=== PATIENT | female | born 1950 | race Caucasian/White ===

== ENCOUNTER → 2017-07-07 | Outpatient (CLI) | payer MEDICARE ==
[~2017-07-07] MED LIST: AZIT250T43 PO; CYCL10TA PO; FORM20NE INH; GUAI600 PO; HYDR-3516 PO; HYDR12.56 PO; LISI-363 PO; LISI-515 PO; LORTA5 PO; METH500T3 PO; MONT10 PO; MONT10TA4 PO; PRED5PAK PO; SPIRCAP INH; Z.0.OXYGENDME NC
[2017-07-07 11:32] LABS: HEMATOCRIT 27.8 % (35.0-46.0); MEAN CORPUSCULAR HEMOGLOBIN 41.7 PG (27.0-34.0); MEAN CORPUSCULAR HGB CONC 33.1 % (32.0-36.0); PLATELET COUNT 78 TH/MM3 (150-450); RED CELL DISTRIBUTION WIDTH 15.1 % (11.6-17.2); WHITE BLOOD COUNT 7.3 TH/MM3 (4.0-11.0)
[2017-07-07 11:36] LABS: REVIEW FLAG FINAL
== END ==
LOC: PHPRE 10:58
PROVIDERS: ATTEND Ophthalmology
DX: Z01.812 Encounter for preprocedural laboratory examination (principal); H26.9 Unspecified cataract; I10 Essential (primary) hypertension
CPT/HCPCS: 36415; 85027

== ENCOUNTER → 2017-07-21 | Day surgery (SDC) | payer MEDICARE ==
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
[~2017-07-21] VITALS: Ht 157.5 cm; Wt 61.5 kg
[~2017-07-21] MED LIST changes: +ACETYLCHOLINE CHL OPHT SOLN 1:100 2 ML VIAL ONE; -AZIT250T43 PO; +BUDE0.25 NEB; +CYCLOPENTOLATE HCL 1% OPHT SOLN 2 ML BTL ONE; +DICLOFENAC SOD 0.1% OPHT SOLN 2.5 ML BTL ONE; +EPINEPHrine HCL PF/SF (1:1000) 1 MG/ML AMP I-OCULAR ONE; +GATIFLOXACIN 0.5% OPHT SOLN 2.5 ML BTL ONE; -GUAI600 PO; +HYALURONIDASE/LIDOCAINE/BUPIVACAINE 5 ML SYR ONE; -LISI-363 PO; -LORTA5 PO; -METH500T3 PO; -MONT10 PO; +PHENYLEPHRINE HCL 2.5% OPTH SOLN 2 ML BTL ONE; +PILOCARPINE HCL 2% OPHT SOLN 15 ML BTL ONE; -PRED5PAK PO; +PROPARACAINE HCL 0.5% OPHT SOLN 15 ML BTL ONE; +PROPOFOL 200 MG/20 ML AMP ONE; +SODIUM CHLORID 0.9% 500 ML INJ 500 ML ONE; +TETRACAINE 0.5% OPTH SOLN 4 ML BTL ONE; +TOBRAMYCIN/DEXAMETHASONE OPTH OINT 3.5 GM TUBE ONE; +TROPICAMIDE 1% OPHT SOLN 15 ML BTL ONE; +VENTAER INH; +VISCOAT OPHT IRRIG SOLN 0.75 ML SYRINGE ONE; -Z.0.OXYGENDME NC
[2017-07-21 08:30] VITALS: PULSE 102
[2017-07-21 09:23] VITALS: PULSE 85
[2017-07-21 11:45] VITALS: BP 112/69; PULSE 92; RESP 16; TEMP 98; O2SAT 100
--- NOTE | 2017-07-21 11:50 | MP ---
cc: RAMÓN GARCIA DATE OF SURGERY: July 21, 2017 PREOPERATIVE DIAGNOSIS Cataract, right eye. POSTOPERATIVE DIAGNOSIS Cataract, right eye. OPERATION Extracapsular cataract extraction with posterior chamber intraocular lens implant by phacoemulsification, right eye. SURGEON Raómn Garcia M.D. ANESTHESIA Local. COMPLICATIONS None. INDICATIONS See history and physical previously dictated. OPERATIVE PROCEDURE The patient had adequate retrobulbar and eyelid blocks administered in the holding area and was brought to the operating room. The right eye was prepped and draped in the usual sterile ophthalmic manner. A lid speculum was inserted in the right eye. A 4-0 silk bridle suture was placed through the conjunctiva near the superior rectus muscle and it was tagged to the drape. A fornix-based conjunctival flap was prepared spanning approximately 5 mm in width. Hemostasis was obtained with wet-field cautery. A 3.5 mm groove was made 1 mm from the limbus and dissected up to the limbus in the form of a scleral pocket incision. A stab incision was then made at the 2 o'clock position. Viscoelastic was injected into the anterior chamber. The anterior chamber was entered with a 2.75 mm keratome through the scleral pocket incision. A 360 degree continuous curvilinear capsulorrhexis was then performed. Hydrodissection was utilized to divide the nucleus into inner and outer components and to separate the cortex from the capsule. Phacoemulsification was then utilized to remove the nucleus. The outer nuclear layer was removed with irrigation and aspiration and short bursts of ultrasound as necessary. The cortex was removed with the irrigation/aspiration handpiece. The posterior capsule was polished with the capsule polisher. Viscoelastic was injected into the capsular bag. The intraocular lens was inspected and found to be in good condition. The lens utilized was a Willis, model number SA60AT with a power of +22 diopters. The lens was inserted into the capsular bag. The viscoelastic in the anterior chamber was then removed with the irrigation-aspiration handpiece. Viscoelastic was also removed from beneath the intraocular lens. The anterior chamber was filled with Miochol-E through the stab incision and pressurized. The wound was checked for leaks at this pressure and normalized pressure and there were none. The 4-0 bridle suture was removed. The conjunctival flap was brought down over the wound and secured with cautery. Pilocarpine 2% eye drops were instilled topically. The lid speculum was removed. TobraDex ophthalmic ointment was applied. The eye was double patched and shielded. The patient tolerated the procedure well and left the Operating Room in satisfactory condition. MD KOFFI Herndon/VIRAJ /11:17 AM /11:44 AM
== END | disposition home or self-care (01) ==
LOC: PHSDC 07:58
PROVIDERS: ATTEND Ophthalmology
DX: H26.9 Unspecified cataract (principal); I10 Essential (primary) hypertension; J44.9 Chronic obstructive pulmonary disease, unspecified
CPT/HCPCS: 00142; 66984; J0171; J7040; V2632

== ENCOUNTER 2017-09-03 14:15 | Inpatient (IN) | payer MEDICARE ==
[~2017-09-03] VITALS: Ht 157.5 cm; Wt 60.3 kg
[2017-09-03] VITALS (7 sets, daily range): BP systolic 143–157; BP diastolic 67–79; PULSE 89–103; RESP 16–20; TEMP 96–97.7; O2SAT 96–100
[~2017-09-03 14:15] MED LIST changes: -ACETYLCHOLINE CHL OPHT SOLN 1:100 2 ML VIAL ONE; -CYCLOPENTOLATE HCL 1% OPHT SOLN 2 ML BTL ONE; -DICLOFENAC SOD 0.1% OPHT SOLN 2.5 ML BTL ONE; -EPINEPHrine HCL PF/SF (1:1000) 1 MG/ML AMP I-OCULAR ONE; -GATIFLOXACIN 0.5% OPHT SOLN 2.5 ML BTL ONE; -HYALURONIDASE/LIDOCAINE/BUPIVACAINE 5 ML SYR ONE; -PHENYLEPHRINE HCL 2.5% OPTH SOLN 2 ML BTL ONE; -PILOCARPINE HCL 2% OPHT SOLN 15 ML BTL ONE; -PROPARACAINE HCL 0.5% OPHT SOLN 15 ML BTL ONE; -PROPOFOL 200 MG/20 ML AMP ONE; -SODIUM CHLORID 0.9% 500 ML INJ 500 ML ONE; -TETRACAINE 0.5% OPTH SOLN 4 ML BTL ONE; -TOBRAMYCIN/DEXAMETHASONE OPTH OINT 3.5 GM TUBE ONE; -TROPICAMIDE 1% OPHT SOLN 15 ML BTL ONE; -VISCOAT OPHT IRRIG SOLN 0.75 ML SYRINGE ONE
[2017-09-03] MEDS ORDERED: HEPARIN SODIUM - IV 10,000 UNITS/10 ML VIAL IV PUSH ONE (14:30)
[2017-09-03] MEDS ORDERED: SODIUM CHLORIDE 0.9% FLUSH 10 ML FLUSH IVF PRN (14:30)
[2017-09-03] MEDS ORDERED: HEPARIN-D5W 25,000 U/250 ML 250 ML IV PRN (14:30)
[2017-09-03] MEDS ORDERED: HEPARIN 25,000 UNITS-D5W 250 ML - PREMIX IV PRN (15:00)
[2017-09-03] MEDS ORDERED: ALBU0.08 NEB (15:04)
[2017-09-03 15:06] LABS: AUTOMATED NEUTROPHIL # 3.9 TH/MM3 (1.8-7.7); BASOPHIL # 0.2 TH/MM3 (0-0.2); BASOPHIL % 1.9 % (0.0-2.0); EOSINOPHIL % 0.4 % (0.0-4.0); HEMATOCRIT 25.2 % (35.0-46.0); HEMOGLOBIN 8.3 GM/DL (11.6-15.3); LYMPH % 54.6 % (9.0-44.0); LYMPHOCYTE # 6.1 TH/MM3 (1.0-4.8); MEAN CELL VOLUME 126.3 FL (80.0-100.0); MEAN CORPUSCULAR HEMOGLOBIN 41.5 PG (27.0-34.0); MEAN CORPUSCULAR HGB CONC 32.9 % (32.0-36.0); MEAN PLATELET VOLUME 7.7 FL (7.0-11.0); MONO % 7.5 % (0.0-8.0); MONOCYTE # 0.8 TH/MM3 (0-0.9); NEUT % 35.6 % (16.0-70.0); PLATELET COUNT 50 TH/MM3 (150-450); RED CELL DISTRIBUTION WIDTH 15.1 % (11.6-17.2)
[2017-09-03 15:13] LABS: CALCIUM 8.8 MG/DL (8.5-10.1)
[2017-09-03 15:14] LABS: PROTHROMBIN TIME - PATIENT 10.5 SEC (9.8-11.6)
[2017-09-03 15:17] LABS: CREATININE 0.65 MG/DL (0.50-1.00)
--- NOTE | 2017-09-03 15:26 | PD ---
HPI Chief Complaint: Numbness/Tingling Time Seen by Provider: 14:26 Travel History International Travel<30 days: No Contact w/Intl Traveler<30days: No Traveled to known affect area: No History of Present Illness HPI The patient is 67 years old. She is female. She was driving to [place] and felt sudden onset of pain and numbness in the left leg. Pain quality is burning. Symptoms have progressively worsened. Onset was about 20 minutes prior. Timing constant. No modifying factor. No similar prior event. PFSH Past Medical History Hx Anticoagulant Therapy: No Anemia: Yes Arthritis: Yes (spine) Asthma: Yes Autoimmune Disease: Yes (ITP) Anxiety: No Depression: No Heart Rhythm Problems: No Cancer: No Cardiovascular Problems: No High Cholesterol: No Chest Pain: No Congestive Heart Failure: No COPD: Yes Diabetes: No Endocrine: No Gastrointestinal Disorders: No Genitourinary: No Hepatitis: No Hiatal Hernia: No Hypertension: Yes (HTN R/T PAIN, HYPOTENSION ISSUE IN PAST) Immune Disorder: No Kidney Stones: No Medical other: Yes (11 compression fx,) Musculoskeletal: Yes (FRACTURE RIGHT HIP (TOTAL REPLACEMENT), CERVICAL FRACTURE (1960'S)) Neurologic: No Psychiatric: No Reproductive: No Respiratory: Yes (copd uses oxygen at home) Renal Failure: No Sickle Cell Disease: No Sleep Apnea: No Thyroid Disease: No Tetanus Vaccination: < 5 Years Influenza Vaccination: Yes ?: Not Tubal Ligation: Yes Past Surgical History Abdominal Surgery: Yes (splenectomy) AICD: No Cardiac Surgery: No Section: Yes (x1) Ear Surgery: No Endocrine Surgery: No Eye Surgery: Yes (right eye implant cataract surgery) Genitourinary Surgery: No Gynecologic Surgery: Yes (C section/ tubal ligation) Joint Replacement: Yes (RT TOTAL HIP) Oral Surgery: Yes (T&A) Pacemaker: No Thoracic Surgery: No Tonsillectomy: Yes Social History Alcohol Use: Yes (ocass mix drinks) Tobacco Use: No (quit 2 yrs smoked 1 ppd) Substance Use: No Allergies-Medications (Allergen,Severity, Reaction): Coded Allergies: Sulfa (Sulfonamide Antibiotics) (Unverified Allergy, Severe, Hives, 09/03/17 ) ciprofloxacin (Unverified Allergy, Severe, Hives, 09/03/17) Reported Meds & Prescriptions Reported Meds & Active Scripts Active Reported Albuterol Neb (Albuterol Sulfate) 2.5 Mg/3 Ml Neb 2.5 Mg NEB Q4HR NEB PRN Budesonide Neb 0.25 Mg/2 Ml Neb 0.25 Mg NEB DAILY NEB Ventolin Hfa 18 GM Inh (Albuterol Sulfate) 90 Mcg/Act Aer 2 Puff INH Q4-6H PRN Spiriva Handihaler (Tiotropium Inh) 18 Mcg Cap 18 Mcg INH DAILY 1 capsule = 18 mcg Montelukast (Montelukast Sodium) 10 Mg Tab 10 Mg PO DAILY Flexeril (Cyclobenzaprine HCl) 10 Mg Tab 20 Mg PO BID Lisinopril 20 Mg Tab 20 Mg PO DAILY Hydrocodone-Acetaminophen 5-325 mg Tab 1 Tab PO Q4H PRN Perforomist Neb (Formoterol Fumarate) 20 Mcg/2 Ml Neb 1 Nebule INH BID Review of Systems Except as stated in HPI: all other systems reviewed are Neg General / Constitutional: No: Fever Physical Exam Narrative GENERAL: Well-nourished well-developed 67-year-old female mild to moderate distress secondary to pain SKIN: Warm and dry. HEAD: Atraumatic. Normocephalic. EYES: Pupils equal and round. No scleral icterus. No injection or drainage. ENT: No nasal bleeding or discharge. Mucous membranes pink and moist. NECK: Trachea midline. No JVD. CARDIOVASCULAR: Regular rate and rhythm. RESPIRATORY: No accessory muscle use. Clear to auscultation. Breath sounds equal bilaterally. GASTROINTESTINAL: Abdomen soft, non-tender, nondistended. Hepatic and splenic margins not palpable. MUSCULOSKELETAL: No dopplerable pulse at L DP. R DP 2+. PT 2+ bilaterally. Cap refill preserved < 2 bilaterally. NEUROLOGICAL: Awake and alert. No obvious cranial nerve deficits. Motor grossly within normal limits. Five out of 5 muscle strength in the arms and legs. Normal speech. PSYCHIATRIC: Appropriate mood and affect; insight and judgment normal. Data Data Last Documented VS Vital Signs Date Time Temp Pulse Resp B/P (MAP) Pulse Ox O2 Delivery O2 Flow Rate FiO2 09/03/17 15:13 90 16 153/68 (96) 100 Nasal Cannula 2.00 09/03/17 14:32 97.7 VS reviewed Orders Orders Electrocardiogram (09/03/17 14:26) Basic Metabolic Panel (Bmp) (09/03/17 14:26) Complete Blood Count With Diff (09/03/17 14:26) Magnesium (Mg) (09/03/17 14:26) Prothrombin Time / Inr (Pt) (09/03/17 14:26) Act Partial Throm Time (Ptt) (09/03/17 14:26) Ecg Monitoring (09/03/17 14:26) Iv Access Insert/Monitor (09/03/17 14:26) Oximetry (09/03/17 14:26) Oxygen Administration (09/03/17 14:26) Sodium Chloride 0.9% Flush (Ns Flush) (09/03/17 14:30) Cta Runoff W Iv Contrast W 3d (09/03/17 ) Heparin Inj (Heparin Inj) (09/03/17 14:30) Cbc No Diff, Includes Plts (09/06/17 06:00) Act Partial Throm Time (Ptt) (09/03/17 21:26) Occult Blood (Hemoccult) Stool (09/03/17 14:26) Heparin-D5w 25,000 U/250 Ml (Heparin-D5w (09/03/17 15:00) Iohexol 350 Inj (Omnipaque 350 Inj) (09/03/17 15:42) Admit Order (Ed Use Only) (09/03/17 ) Ash Handler / Telemetry BALJIT.Q8H (09/03/17 17:16) Vital Signs (Adult) Q4H (09/03/17 17:16) Diet Npo (09/03/17 Dinner) Activity Bed Rest (09/03/17 17:16) Notify Dr: Other (09/03/17 17:16) Labs Laboratory Tests Test 09/03/17 14:45 White Blood Count 11.0 TH/MM3 Red Blood Count 2.00 MIL/MM3 Hemoglobin 8.3 GM/DL Hematocrit 25.2 % Mean Corpuscular Volume 126.3 FL Mean Corpuscular Hemoglobin 41.5 PG Mean Corpuscular Hemoglobin Concent 32.9 % Red Cell Distribution Width 15.1 % Platelet Count 50 TH/MM3 Mean Platelet Volume 7.7 FL Neutrophils (%) (Auto) 35.6 % Lymphocytes (%) (Auto) 54.6 % Monocytes (%) (Auto) 7.5 % Eosinophils (%) (Auto) 0.4 % Basophils (%) (Auto) 1.9 % Neutrophils # (Auto) 3.9 TH/MM3 Lymphocytes # (Auto) 6.1 TH/MM3 Monocytes # (Auto) 0.8 TH/MM3 Eosinophils # (Auto) 0.0 TH/MM3 Basophils # (Auto) 0.2 TH/MM3 CBC Comment AUTO DIFF Differential Total Cells Counted 100 Neutrophils % (Manual) 26 % Lymphocytes % 66 % Monocytes % 7 % Eosinophils % 1 % Neutrophils # (Manual) 2.9 TH/MM3 Differential Comment FINAL DIFF MANUAL Platelet Estimate LOW Platelet Morphology Comment NORMAL Tear Drop Cells 1+ Ovalocytes 1+ Keratocytes 1+ Prothrombin Time 10.5 SEC Prothromb Time International Ratio 1.0 RATIO Activated Partial Thromboplast Time 21.4 SEC Blood Urea Nitrogen 13 MG/DL Creatinine 0.65 MG/DL Random Glucose 117 MG/DL Calcium Level 8.8 MG/DL Magnesium Level 2.0 MG/DL Sodium Level 140 MEQ/L Potassium Level 3.4 MEQ/L Chloride Level 102 MEQ/L Carbon Dioxide Level 31.0 MEQ/L Anion Gap 7 MEQ/L Estimat Glomerular Filtration Rate 90 ML/MIN MDM Medical Decision Making Medical Screen Exam Complete: Yes Emergency Medical Condition: Yes Medical Record Reviewed: Yes Differential Diagnosis Arterial occlusion, neuropathy, metabolic disarray Narrative Course 410pm pt resting comfortably, pain controlled; pt updated with plan 440pm pt resting comfortably, pain controlled CBC & BMP Diagram 09/03/17 14:45 Calcium Level 8.8, Magnesium Level 2.0 EKG: sinus, rate 96, non-specific ST changes multiple leads CTA: LEFT- embolus in distal popliteal with reconstitution distally. RIGHT - distal embolus no occlusive The patient will be [place] [facility] on med/surg with telemetry. case d/w Dr Luong of hematology, in for argatroban case d/w Dr Mixon of vascular surgery who will evaluate patient upon her arrival to [facility] case d/w Dr Dsouza for [facility] argatroban started here 0.5mg hydromorphone started in ED Critical Care Narrative Aggregate critical care time was 45 minutes. Time to perform other separately billable procedures was not included in the critical care time. My time did not include minutes spent treating any other patients simultaneously or on activities that did not directly contribute to the patient's treatment. The services I provided to this patient were to treat and/or prevent clinically significant deterioration that could result in: No loss of limb function I provided critical care services requiring my management, as noted below: Chart data review, documentation time, medication orders and management, vital sign assessments/reviewing monitor data, ordering and reviewing lab tests, ordering and interpreting/reviewing x-rays and diagnostic studies, care of the patient and discussion of the patient with the admitting physicians. Diagnosis Primary Impression: Arterial occlusion, lower extremity Additional Impressions: Idiopathic thrombocytopenia purpura Chronic anemia Admitting Information Admitting Physician Requests: Admit Donte Hernandez MD Sep 03, 2017 15:26
[2017-09-03] MEDS ORDERED: IOHEXOL 350 MG/ML 10 ML VIAL (for RAD DIAG) IVCONTRAST ONE (15:42)
[2017-09-03 16:01] LABS: LYMPHOCYTES 66 % (9-44); MONOCYTES 7 % (0-8); NEUTROPHIL # MANUAL DIFF 2.9 TH/MM3 (1.8-7.7); OVALOCYTES 1+ (NORMAL); POLYS (SEG NEUTROPHILS) 26 % (16-70); TEARDROP RBCS 1+ (NORMAL)
[2017-09-03 16:02] LABS: KERATOCYTES 1+ (NORMAL)
--- NOTE | 2017-09-03 16:54 | RADRPT ---
EXAM DATE/TIME: 09/03/2017 15:24 [place] COMPARISON: No previous studies available for comparison. INDICATIONS : Left foot tingling, cool to touch, and asbsent pedal pulse. IV CONTRAST: 100 cc Omnipaque 350 (iohexol) IV RADIATION DOSE: 5.97 CTDIvol (mGy) MEDICAL HISTORY : Chronic obstructive pulmonary disease. Cardiovascular disease Hypertension.Asthma. SURGICAL HISTORY : Splenectomy. Tubal ligation. section.Right total hip replacement. ENCOUNTER: Initial ACUITY: 1 day PAIN SCALE: 2/10 LOCATION: Left foot/ankle TECHNIQUE: Volumetric scanning was performed using a multi-row detector CT scanner. The data was post processed with a variety of visualization algorithms including full volume maximum intensity projection, multi -planar sliding thin slab reformation, curved planar reformation, and surface rendering techniques. Using automated exposure control and adjustment of the mA and/or kV according to patient size, radiat ion dose was kept as low as reasonably achievable to obtain optimal diagnostic quality images. DICO M format image data is available electronically for review and comparison. FINDINGS: Examination of the lung bases demonstrates no abnormality. No pleural fluid is identified. No pulmona ry nodules are present. The liver is normal in size and free of focal defects. The spleen is surgical ly absent. The gallbladder and pancreas demonstrate no abnormality. The adrenal glands are normal. Th e kidneys demonstrate no evidence of solid renal mass or hydronephrosis. No free fluid or abdominal m asses are identified. No para-aortic adenopathy is seen. Examination of the pelvis demonstrates no ev idence of free fluid or pelvic mass. No abnormally enlarged inguinal or retroperitoneal lymph nodes a re present. The bladder is unremarkable. The aorta is normal in caliber. There is no evidence of aneurysm or dissection. The celiac and superi or mesenteric arteries are patent. The left renal artery origin is patent. There is greater than 90% stenosis at the origin of the right renal artery. Examination of the right lower extremity demonstrates no evidence of inflow stenosis. The common femo ral artery is patent. There is nonocclusive thrombus involving the distal popliteal artery with paten t trifurcation and runoff vessels. Examination of the left lower extremity demonstrates no evidence of inflow stenosis. The common femor al artery is patent. The superficial femoral artery is patent. There is occlusive thrombus involving the distal popliteal artery with reconstitution of the trifurcation vessels. There is a posterior tib ial artery at the level of the ankle. CONCLUSION: 1. Finding of emboli to the popliteal artery bilaterally completely occlusive on the left distal runo ff present. The findings were discussed with Dr. Hernandez at time of dictation Rojelio Penn MD on September 03, 2017 at 16:37 Board Certified Radiologist. This report was verified electronically.
[2017-09-03] MEDS ORDERED: NALOXONE HCL 0.4 MG/ML AMP IV PUSH PRN (17:30)
[2017-09-03] MEDS ORDERED: POTASSIUM CHLORIDE 10 MEQ CONTROLLED RELEASE TAB PO ONE (17:30)
[2017-09-03] MEDS ORDERED: SODIUM CHLORIDE 0.9% FLUSH 10 ML FLUSH IV FLUSH PRN (17:30)
[2017-09-03] MEDS ORDERED: MORPHINE SULFATE 2 MG/ML INJ IV PUSH ONE (17:45)
[2017-09-03] MEDS ORDERED: MISCELLANEOUS PHARMACY INFORMATION OTHER ONE (17:45)
[2017-09-03] MEDS ORDERED: ARGATROBAN INJ 250 MG in SODIUM CHLOR 0.9% 250 ML INJ 250 ML IV PRN (17:45)
[2017-09-03] MEDS ORDERED: ONDANSETRON HCL 4 MG/2 ML VIAL IVP PRN (18:00)
[2017-09-03 18:09] LABS: ALBUMIN 3.5 GM/DL (3.4-5.0)
[2017-09-03 18:12] LABS: DIRECT BILIRUBIN ADULT 0.1 MG/DL (0.0-0.2)
[2017-09-03 18:14] LABS: INDIRECT BILIRUBIN 0.2 MG/DL (0.0-0.8); TOTAL BILIRUBIN ADULT 0.3 MG/DL (0.2-1.0); TOTAL PROTEIN 6.5 GM/DL (6.4-8.2)
[2017-09-03] MEDS ORDERED: HYDROmorphone HCL PF 2 MG/ML VIAL IV PUSH ONE (18:15)
[2017-09-03] MEDS ORDERED: ACETAMINOPHEN 325 MG TAB PO PRN (20:00)
[2017-09-03] MEDS ORDERED: MAGNESIUM HYDROXIDE SUSP 30 ML CUP PO PRN (21:00)
[2017-09-03] MEDS ORDERED: NON-FORMULARY DRUG (Formoterol Neb (Perforomist Neb) 1 NEBULE) INH SCH (21:00)
[2017-09-03] MEDS ORDERED: CYCLOBENZAPRINE HCL 10 MG TAB PO SCH (21:00)
--- NOTE | 2017-09-03 22:00 | PD.VS.CON ---
History of Present Illness Chief Complaint: L LE ischemia Consult Requested by: Medical service History of Present Illness 67 yo female with ITP, potentially recently refractory, who presented to ED with R then L LE ischemia. At about 2p she had acute R leg pain that has since resolved and now has L LE pain that has significantly improved. At present, she only hurts after ambulation. No motor dysfunction. No prior episodes like this but does have B LE numbness with prolonged standing. Past/Family/Social History Past Medical History ITP chronic back pain COPD lung mass (believed to be scar tissue) anemia Past Surgical History hip repair cataract surgery splenectomy (ITP) Social History smoker Family History [place] Home Medications Reported Medications Albuterol Neb (Albuterol Neb) 2.5 Mg/3 Ml Neb, 2.5 MG NEB Q4HR NEB Y for SHORTNESS OF BREATH, #60 NEBULE 0 Refills 09/03/17 Budesonide Neb (Budesonide Neb) 0.25 Mg/2 Ml Neb, 0.25 MG NEB DAILY NEB for Breathing Treatment, #30 NEBULE 0 Refills 07/21/17 Albuterol 18 GM Inh (Ventolin Hfa 18 GM Inh) 90 Mcg/Act Aer, 2 PUFF INH Q4-6H Y for SHORTNESS OF BREATH, #1 INHALER 0 Refills 07/21/17 Tiotropium Inh (Spiriva Handihaler) 18 Mcg Cap, 18 MCG INH DAILY for COPD, #30 CAP 0 Refills 1 capsule = 18 mcg 07/07/17 Montelukast (Montelukast) 10 Mg Tab, 10 MG PO DAILY, #30 TAB 0 Refills 07/07/17 Cyclobenzaprine (Flexeril) 10 Mg Tab, 20 MG PO BID for Muscle Spasm, #90 TAB 0 Refills 07/07/17 Lisinopril (Lisinopril) 20 Mg Tab, 20 MG PO DAILY, #30 TAB 0 Refills 07/07/17 Hydrocodone-Acetaminophen (Hydrocodone-Acetaminophen) 5-325 mg Tab, 1 TAB PO Q4H Y for PAIN, TAB 0 Refills 07/07/17 Formoterol Neb (Perforomist Neb) 20 Mcg/2 Ml Neb, 1 NEBULE INH BID for COPD, # 60 NEBULE 0 Refills 07/07/17 Discontinued Reported Medications Hydrochlorothiazide (Hydrochlorothiazide) 12.5 Mg Tab, 12.5 MG PO DAILY, #30 TAB 0 Refills 07/07/17 Coded Allergies: Sulfa (Sulfonamide Antibiotics) (Unverified Allergy, Severe, Hives, 09/03/17 ) ciprofloxacin (Unverified Allergy, Severe, Hives, 09/03/17) Review of Systems Constitutional: COMPLAINS OF: Fatigue Respiratory: COMPLAINS OF: Shortness of breath Cardiovascular: DENIES: Chest pain, Syncope Physical Exam Vitals/I&O Date Time Temp Pulse Resp B/P (MAP) Pulse Ox O2 Delivery O2 Flow Rate FiO2 09/03/17 20:00 96.0 98 20 148/67 (94) 96 09/03/17 18:28 Nasal Cannula 2.00 09/03/17 18:15 85 16 149/73 (98) 97 2.00 09/03/17 17:00 90 16 143/76 (98) 98 Nasal Cannula 2.00 09/03/17 17:00 80 16 97 Nasal Cannula 2.00 09/03/17 16:15 89 16 157/79 (105) 09/03/17 15:13 90 16 153/68 (96) 100 Nasal Cannula 2.00 09/03/17 14:43 98 18 154/79 (104) 97 Nasal Cannula 2.00 09/03/17 14:42 97 Nasal Cannula 2.00 09/03/17 14:40 93 16 98 Nasal Cannula 2.00 09/03/17 14:32 97.7 103 16 154/79 (104) 98 Neuro: alert, conversant, no distress HEENT: NC/AT; anicteric sclera Neck: no JVD, trachea midline Heart: reg rate, no M Lungs: distant BS bilaterally Abdomen: NT Vascular: palpable R DP no palpable L DP/PT Extremities: motor intact, no tissue loss both feet appear well perfused Laboratory Tests Test 09/03/17 14:45 White Blood Count 11.0 Red Blood Count 2.00 Hemoglobin 8.3 Hematocrit 25.2 Mean Corpuscular Volume 126.3 Mean Corpuscular Hemoglobin 41.5 Mean Corpuscular Hemoglobin Concent 32.9 Red Cell Distribution Width 15.1 Platelet Count 50 Mean Platelet Volume 7.7 Neutrophils (%) (Auto) 35.6 Lymphocytes (%) (Auto) 54.6 Monocytes (%) (Auto) 7.5 Eosinophils (%) (Auto) 0.4 Basophils (%) (Auto) 1.9 Neutrophils # (Auto) 3.9 Lymphocytes # (Auto) 6.1 Monocytes # (Auto) 0.8 Eosinophils # (Auto) 0.0 Basophils # (Auto) 0.2 CBC Comment AUTO DIFF Differential Total Cells Counted 100 Neutrophils % (Manual) 26 Lymphocytes % 66 Monocytes % 7 Eosinophils % 1 Neutrophils # (Manual) 2.9 Differential Comment FINAL DIFF MANUAL Platelet Estimate LOW Platelet Morphology Comment NORMAL Tear Drop Cells 1+ Ovalocytes 1+ Keratocytes 1+ Prothrombin Time 10.5 Prothromb Time International Ratio 1.0 Activated Partial Thromboplast Time 21.4 Blood Urea Nitrogen 13 Creatinine 0.65 Random Glucose 117 Calcium Level 8.8 Magnesium Level 2.0 Sodium Level 140 Potassium Level 3.4 Chloride Level 102 Carbon Dioxide Level 31.0 Anion Gap 7 Estimat Glomerular Filtration Rate 90 Total Bilirubin 0.3 Direct Bilirubin 0.1 Indirect Bilirubin 0.2 Aspartate Amino Transf (AST/SGOT) 14 Alanine Aminotransferase (ALT/SGPT) 11 Alkaline Phosphatase 68 Total Protein 6.5 Albumin 3.5 Last 48 hours Impressions Aorta w/Runoff CTA 09/03/17 0000 Signed Impressions: Service Date/Time: Sunday, September 03, 2017 15:24 - CONCLUSION: 1. Finding of emboli to the popliteal artery bilaterally completely occlusive on the left distal runoff present. The findings were discussed with Dr. Hernandez at time of dictation Rojelio Penn MD Assessment and Plan Plan She has L popliteal occlusion, likely embolic but unclear etiology. she has underlying ITP with platelet count of 50. At present, she is motor intact and has only mild claudication symptoms. 1. NPO after MN 2. systemic anticoagulation 3. heme consult 4. TTE 5. Likely L LE embolectomy tomorrow if no palpable pulse by in the morning. Discussed with patient and her who agree to plan. 6. Recheck CBC in a.m. Swapnil Mixon MD FACS [employer] commanding officer [facility] - Heart [facility] Vascular Surgery at [facility] [phone] Swapnil Mixon MD Sep 03, 2017 22:00
--- NOTE | 2017-09-03 22:03 | HHI.HP ---
[facility]Staff Ad[facility] Diagnosis Arterial Occlusion LLE; ITP w Thrombocytopenia Diagnoses: Chief Complaint: left leg pain/numbness Travel History International Travel<30 Days: No Contact w/Intl Traveler <30 Da: No Traveled to Known Affected Are: No History of Present Illness 67-year-old female with history of ITP, splenectomy, anemia, chronic back pain with 11 compression fractures, asthma/COPD on home O2 2L, HTN, presents with acute onset of left leg pain and paresthesias. The patient reports she was driving to [place] around 4 PM today 09/03/17 when she started to feel muscle cramps in bilateral feet. Around 4:10 PM she started to get a severe 9/10 pain across her dorsal left foot and her left lateral calf associated with pins and needles and slight numbness. She also reports the left foot was colder than the right and has a slight purple discoloration in the toes. She states she pulled over and let her drive the vehicle, and they turned around and came back to [facility]. She states any ambulation made the pain worse. She did not get any relief until she received IV Dilaudid in the ER. She denies any other medical complaints including no headache, lightheadedness, chest pain, palpitations, or abdominal complaints. She has COPD O2 dependent on 2 L nasal cannula at home, and has chronic shortness of breath at baseline. She was recently treated for URI, finished a Z-Mike and prednisone taper on Friday08/31/17. She states she recently had a checkup with her director of speech pathology Dr. Santos and everything was fine at that appointment. She also sees residential builder Dr. Reyna at [facility]. Her hand woodworking sander is Dr. Hooper in [place]. She also goes to the [facility] for her chronic back pain. The patient has no other medical complaints to report at this time. Review of Systems Except as stated in HPI: all other systems reviewed are Neg Past Family Social History Past Medical History ITP anemia chronic back pain with 11 compression fractures asthma/COPD on home O2 2L HTN Past Surgical History Splenectomy Right eye cataract removal and lens implant Tubal ligation Right total hip arthroplasty Tonsilloadenoidectomy Reported Medications Albuterol Neb (Albuterol Sulfate) 2.5 Mg/3 Ml Neb 2.5 Mg NEB Q4HR NEB PRN Budesonide Neb 0.25 Mg/2 Ml Neb 0.25 Mg NEB DAILY NEB Ventolin Hfa 18 GM Inh (Albuterol Sulfate) 90 Mcg/Act Aer 2 Puff INH Q4-6H PRN Spiriva Handihaler (Tiotropium Inh) 18 Mcg Cap 18 Mcg INH DAILY 1 capsule = 18 mcg Montelukast (Montelukast Sodium) 10 Mg Tab 10 Mg PO DAILY Flexeril (Cyclobenzaprine HCl) 10 Mg Tab 20 Mg PO BID Lisinopril 20 Mg Tab 20 Mg PO DAILY Hydrocodone-Acetaminophen 5-325 mg Tab 1 Tab PO Q4H PRN Perforomist Neb (Formoterol Fumarate) 20 Mcg/2 Ml Neb 1 Nebule INH BID Allergies: Coded Allergies: Sulfa (Sulfonamide Antibiotics) (Unverified Allergy, Severe, Hives, 09/03/17 ) ciprofloxacin (Unverified Allergy, Severe, Hives, 09/03/17) Active Ordered Medications Current Medications Medications (Trade) Dose Ordered Sig/Colton Route Start Time Stop Time Status Last Admin (NS Flush) 2 ml UNSCH PRN IVF 09/03/17 14:30 Sodium Chloride 1,000 ml @ 100 mls/hr Q10H IV 09/03/17 17:21 (NS Flush) 2 ml UNSCH PRN IV FLUSH 09/03/17 17:30 09/03/17 18:11 (NS Flush) 2 ml BID IV FLUSH 09/03/17 21:00 (Tylenol) 650 mg Q4HR PRN PO 09/03/17 20:00 (Zofran Inj) 4 mg Q6HR PRN IVP 09/03/17 18:00 09/03/17 18:10 (Narcan Inj) 0.4 mg UNSCH PRN IV PUSH 09/03/17 17:30 (Milk Of Magnesia Liq) 30 ml Q12HR PRN PO 09/03/17 21:00 (Albuterol Neb) 2.5 mg Q4HR NEB PRN NEB 09/03/17 20:00 (Pulmicort Respule Neb) 0.25 mg DAILY NEB NEB 09/04/17 08:00 (Flexeril) 20 mg BID PO 09/03/17 21:00 (Wolcott 5-325 Mg) 1 tab Q4H PRN PO 09/03/17 18:00 (Prinivil) 20 mg DAILY PO 09/04/17 09:00 (Singulair) 10 mg DAILY PO 09/04/17 09:00 (Spiriva Inh) 18 mcg DAILY INH 09/04/17 09:00 Non-Formulary Medication 1 nebule BID INH 09/03/17 21:00 Future Hold Argatroban 250 mg/ Sodium Chloride 252.5 ml @ 7.33 mls/hr TITRATE PRN IV 09/03/17 17:45 Family History Mother with hypertension, arterial disease with multiple aneurysms in the renal artery, kidneys, and one in the brain Father with heart disease, COPD, rheumatoid arthritis Social History Prior tobacco use, smoked 1 PPD from age [age], quit two years ago Very rare alcohol use, maybe one drink every four months Denies any illicit drug use Physical Exam Vital Signs Vital Signs Date Time Temp Pulse Resp B/P (MAP) Pulse Ox O2 Delivery O2 Flow Rate FiO2 09/03/17 20:00 96.0 98 20 148/67 (94) 96 09/03/17 18:28 Nasal Cannula 2.00 09/03/17 18:15 85 16 149/73 (98) 97 2.00 09/03/17 17:00 90 16 143/76 (98) 98 Nasal Cannula 2.00 09/03/17 17:00 80 16 97 Nasal Cannula 2.00 09/03/17 16:15 89 16 157/79 (105) 09/03/17 15:13 90 16 153/68 (96) 100 Nasal Cannula 2.00 09/03/17 14:43 98 18 154/79 (104) 97 Nasal Cannula 2.00 09/03/17 14:42 97 Nasal Cannula 2.00 09/03/17 14:40 93 16 98 Nasal Cannula 2.00 09/03/17 14:32 97.7 103 16 154/79 (104) 98 Physical Exam GENERAL: Well-nourished, well-developed pleasant female patient in NAD. SKIN: Warm and dry. No rash. HEAD: Normocephalic. Atraumatic. EYES: Pupils equal and round. No scleral icterus. No injection or drainage. ENT: No nasal bleeding or discharge. Mucous membranes pink and moist. NECK: Supple. Trachea midline. CARDIOVASCULAR: Regular rate and rhythm. S1, S2 noted. No murmur appreciated. RESPIRATORY: No accessory muscle use. Mild end expiratory wheeze anteriorly, with diminished breath sounds at bilateral bases. Breath sounds equal bilaterally. GASTROINTESTINAL: Abdomen soft, non-tender, nondistended. Normoactive bowel sounds x4. MUSCULOSKELETAL: No obvious deformities. Nonpalpable left DP pulse. 2+ right DP pulse. Left foot cool to touch compared to . Intact bilateral capillary refill less than 2 seconds. NEUROLOGICAL: Awake and alert. No obvious cranial nerve deficits. Motor grossly within normal limits. 5/5 muscle strength in bilateral upper and lower extremities. Normal speech. PSYCHIATRIC: Appropriate mood and affect; insight and judgment normal. Laboratory Laboratory Tests Test 09/03/17 14:45 White Blood Count 11.0 Red Blood Count 2.00 Hemoglobin 8.3 Hematocrit 25.2 Mean Corpuscular Volume 126.3 Mean Corpuscular Hemoglobin 41.5 Mean Corpuscular Hemoglobin Concent 32.9 Red Cell Distribution Width 15.1 Platelet Count 50 Mean Platelet Volume 7.7 Neutrophils (%) (Auto) 35.6 Lymphocytes (%) (Auto) 54.6 Monocytes (%) (Auto) 7.5 Eosinophils (%) (Auto) 0.4 Basophils (%) (Auto) 1.9 Neutrophils # (Auto) 3.9 Lymphocytes # (Auto) 6.1 Monocytes # (Auto) 0.8 Eosinophils # (Auto) 0.0 Basophils # (Auto) 0.2 CBC Comment AUTO DIFF Differential Total Cells Counted 100 Neutrophils % (Manual) 26 Lymphocytes % 66 Monocytes % 7 Eosinophils % 1 Neutrophils # (Manual) 2.9 Differential Comment FINAL DIFF MANUAL Platelet Estimate LOW Platelet Morphology Comment NORMAL Tear Drop Cells 1+ Ovalocytes 1+ Keratocytes 1+ Prothrombin Time 10.5 Prothromb Time International Ratio 1.0 Activated Partial Thromboplast Time 21.4 Blood Urea Nitrogen 13 Creatinine 0.65 Random Glucose 117 Calcium Level 8.8 Magnesium Level 2.0 Sodium Level 140 Potassium Level 3.4 Chloride Level 102 Carbon Dioxide Level 31.0 Anion Gap 7 Estimat Glomerular Filtration Rate 90 Total Bilirubin 0.3 Direct Bilirubin 0.1 Indirect Bilirubin 0.2 Aspartate Amino Transf (AST/SGOT) 14 Alanine Aminotransferase (ALT/SGPT) 11 Alkaline Phosphatase 68 Total Protein 6.5 Albumin 3.5 Result Diagram: 09/03/17 1445 09/03/17 1445 Imaging Last Impressions Aorta w/Runoff CTA 09/03/17 0000 Signed Impressions: Service Date/Time: Sunday, September 03, 2017 15:24 - CONCLUSION: 1. Finding of emboli to the popliteal artery bilaterally completely occlusive on the left distal runoff present. The findings were discussed with Dr. Hernandez at time of dictation MD Nat Lu VTE Risk Assessment Caprinmallorie VTE Risk Assessment: Mod/High Risk (score >= 2) Caprini Risk Assessment Model Point Value = 1 Point Value = 2 Point Value = 3 Point Value = 5 Age 41-60 Minor surgery BMI > 25 kg/m2 Swollen legs Varicose veins or History of unexplained or recurrent spontaneous Oral contraceptives or hormone replacement Sepsis (< 1 month) Serious lung disease, including pneumonia (< 1 month) Abnormal pulmonary function Acute myocardial infarction Congestive heart failure (< 1 month) History of inflammatory bowel disease Medical patient at bed rest Age 61-74 Arthroscopic surgery Major open surgery (> 45 min) Laparoscopic surgery (> 45 min) Malignancy Confined to bed (> 72 hours) Immobilizing plaster cast Central venous access Age >= 75 History of VTE Family history of VTE Factor V Leiden Prothrombin [id number] Lupus anticoagulant Anticardiolipin antibodies Elevated serum homocysteine Heparin-induced thrombocytopenia Other congenital or acquired thrombophilia Stroke (< 1 month) Elective arthroplasty Hip, pelvis, or leg fracture Acute spinal cord injury (< 1 month) Prophylaxis Regimen Total Risk Factor Score Risk Level Prophylaxis Regimen 0-1 Low Early ambulation 2 Moderate Order ONE of the following: *Sequential Compression Device (SCD) *Heparin 5000 units SQ BID 3-4 Higher Order ONE of the following medications: *Heparin 5000 units SQ TID *Enoxaparin/Lovenox 40 mg SQ daily (WT < 150 kg, CrCl > 30 mL/min) *Enoxaparin/Lovenox 30 mg SQ daily (WT < 150 kg, CrCl > 10-29 mL/min) *Enoxaparin/Lovenox 30 mg SQ BID (WT < 150 kg, CrCl > 30 mL/min) AND/OR *Sequential Compression Device (SCD) 5 or more Highest Order ONE of the following medications: *Heparin 5000 units SQ TID (Preferred with Epidurals) *Enoxaparin/Lovenox 40 mg SQ daily (WT < 150 kg, CrCl > 30 mL/min) *Enoxaparin/Lovenox 30 mg SQ daily (WT < 150 kg, CrCl > 10-29 mL/min) *Enoxaparin/Lovenox 30 mg SQ BID (WT < 150 kg, CrCl > 30 mL/min) AND *Sequential Compression Device (SCD) Assessment and Plan Assessment and Plan 67-year-old female with history of ITP, splenectomy, anemia, chronic back pain with 11 compression fractures, asthma/COPD on home O2 2L, HTN, presents with acute onset of left leg pain and paresthesias at 4pm on 09/03/17. Acute Left Popliteal Artery Occlusion: CTA images reviewed, shows emboli to the popliteal artery bilaterally, completely occlusive on the left. -Production Dispatcher Dr. Luong contacted from the ER, Argatroban was recommended with history of ITP -Consulted vascular surgery and Dr. Mixon, recommend anticoagulation and plan for likely embolectomy tomorrow correctional medicine physician 09/04/17 -NPO after midnight -Monitor pulses -Pain control with norco prn and IV dilaudid prn breakthrough pain ITP: s/p splenectomy. Platelets 50K. Sees residential builder Dr. Reyna at [facility]. -Consult hematology -Monitor CBC COPD, O2 Dependent on 2L NC: chronic, appears stable. Her hand woodworking sander is Dr. Hooper in [place]. -continue home Spiriva, Perforomist, albuterol nebs, budesonide neb -continue O2 Chronic Back Pain: with reported hx of 11 compression fractures. Follows as outpatient with [facility] -continue patient's home flexeril and Wolcott -IV dilaudid prn breakthrough pain DVT Prophylaxis: On Argatroban Discussed Condition With Patient, Dr. Pena, Dr. Mixon, RN Physician Certification 2 Midnight Certification Type: Admission for Inpatient Services Order for Inpatient Services The services are ordered in accordance with Medicare regulations or non- Medicare payer requirements, as applicable. In the case of services not specified as inpatient-only, they are appropriately provided as inpatient services in accordance with the 2-midnight benchmark. Estimated LOS (days): 3 days is the estimated time the patient will need to remain in the hospital, assuming treatment plan goals are met and no additional complications. Post-Hospital Plan: Not yet determined Pricila Quinonez PA-C Sep 03, 2017 22:03
[2017-09-03] MEDS: SODIUM CHLORIDE 0.9% FLUSH 10 ML FLUSH IV FLUSH SCH (23:09)
[2017-09-04] VITALS (8 sets, daily range): BP systolic 110–160; BP diastolic 57–90; PULSE 80–100; RESP 17–20; TEMP 96.4–97.7; O2SAT 95–99
[2017-09-04] MEDS: SODIUM CHLOR 0.9% 1000 ML INJ 1,000 ML IV SCH ×4 (00:48→23:21)
[2017-09-04 02:11] LABS: AUTOMATED NEUTROPHIL # 3.9 TH/MM3 (1.8-7.7); BASOPHIL % 0.2 % (0.0-2.0); EOSINOPHIL # 0.1 TH/MM3 (0-0.4); EOSINOPHIL % 0.6 % (0.0-4.0); HEMATOCRIT 24.3 % (35.0-46.0); HEMOGLOBIN 8.1 GM/DL (11.6-15.3); LYMPH % 53.9 % (9.0-44.0); LYMPHOCYTE # 5.6 TH/MM3 (1.0-4.8); MEAN CELL VOLUME 128.9 FL (80.0-100.0); MEAN CORPUSCULAR HEMOGLOBIN 42.8 PG (27.0-34.0); MEAN CORPUSCULAR HGB CONC 33.2 % (32.0-36.0); MEAN PLATELET VOLUME 8.5 FL (7.0-11.0); MONO % 7.7 % (0.0-8.0); MONOCYTE # 0.8 TH/MM3 (0-0.9); NEUT % 37.6 % (16.0-70.0); PLATELET COUNT 41 TH/MM3 (150-450); RED BLOOD COUNT 1.88 MIL/MM3 (4.00-5.30); RED CELL DISTRIBUTION WIDTH 14.1 % (11.6-17.2); WHITE BLOOD COUNT 10.4 TH/MM3 (4.0-11.0)
[2017-09-04 02:20] LABS: INTERNATIONAL NORMALIZED RATIO 1.2 RATIO
[2017-09-04 02:23] LABS: BICARBONATE 33.7 MEQ/L (21.0-32.0); CALCIUM 8.5 MG/DL (8.5-10.1); CREATININE 0.58 MG/DL (0.50-1.00)
[2017-09-04 02:54] LABS: LYMPHOCYTES 55 % (9-44); MONOCYTES 9 % (0-8); NEUTROPHIL # MANUAL DIFF 3.7 TH/MM3 (1.8-7.7); POLYS (SEG NEUTROPHILS) 36 % (16-70)
[2017-09-04 02:56] LABS: ACANTHOCYTES OCC (NORMAL); HOWELL-JOLLY BODIES PRESENT (NONE SEEN); OVALOCYTES 1+ (NORMAL)
[2017-09-04] MEDS: RESP: ALBUTEROL 2.5 MG/3 ML NEB (PRN) NEB ×2 (03:33→20:42)
--- NOTE | 2017-09-04 06:31 | PD.VS.PN ---
Pre-operative Note Pre-operative diagnosis: L LE embolus Planned procedure: L LE embolectomy, revascularization Interval History: Pt has improved pain but still no pulse in foot. Plan for embolectomy. Labs: Laboratory Results Test 09/04/17 01:08 Anion Gap 4 MEQ/L (5-15) Blood Urea Nitrogen 13 MG/DL (7-18) Creatinine 0.58 MG/DL (0.50-1.00) Random Glucose 92 MG/DL (74-106) Calcium Level 8.5 MG/DL (8.5-10.1) Sodium Level 139 MEQ/L (136-145) Potassium Level 3.7 MEQ/L (3.5-5.1) Chloride Level 101 MEQ/L (98-107) Carbon Dioxide Level 33.7 MEQ/L (21.0-32.0) Hematocrit 24.3 % (35.0-46.0) Hemoglobin 8.1 GM/DL (11.6-15.3) Mean Corpuscular Hemoglobin 42.8 PG (27.0-34.0) Mean Corpuscular Hemoglobin Concent 33.2 % (32.0-36.0) Mean Corpuscular Volume 128.9 FL (80.0-100.0) Mean Platelet Volume 8.5 FL (7.0-11.0) Platelet Count 41 TH/MM3 (150-450) Prothromb Time International Ratio 1.2 RATIO Red Blood Count 1.88 MIL/MM3 (4.00-5.30) Red Cell Distribution Width 14.1 % (11.6-17.2) White Blood Count 10.4 TH/MM3 (4.0-11.0) Blood: T&C 2U PRBC T&C platelets Imaging: Last Impressions Aorta w/Runoff CTA 09/03/17 0000 Signed Impressions: Service Date/Time: Sunday, September 03, 2017 15:24 - CONCLUSION: 1. Finding of emboli to the popliteal artery bilaterally completely occlusive on the left distal runoff present. The findings were discussed with Dr. Hernandez at time of dictation Rojelio Penn MD Orders: NPO Ancef 2g IV OCTOR Post-operative destination: PACU Operative site marked: Yes Consent: Informed consent has been obtained from Pilar Cruz. I have explained the procedure in detail and discussed the risks, benefits, and potential complications. All questions have been answered. Swapnil Mixon MD Sep 04, 2017 06:31
[2017-09-04] MEDS: SODIUM CHLORIDE 0.9% FLUSH 10 ML FLUSH IV FLUSH SCH ×2 (07:40→20:28)
[2017-09-04] MEDS: MONTELUKAST SODIUM 10 MG TAB PO SCH (07:42)
[2017-09-04] MEDS: ACETAMINOPHEN/HYDROcodone 325 MG/5 MG TAB PO PRN ×2 (07:43→18:48)
[2017-09-04] MEDS: CYCLOBENZAPRINE HCL 10 MG TAB PO SCH ×2 (07:43→20:27)
[2017-09-04] MEDS: LISINOPRIL 20 MG TAB PO SCH (07:43)
[2017-09-04] MEDS: RESP: BUDESONIDE 0.25 MG/2 ML NEB NEB SCH (08:00)
[2017-09-04] MEDS ORDERED: TIOTROPIUM BROMIDE 18 MCG INH INH SCH (09:00)
[2017-09-04] MEDS ORDERED: THROMBIN (TOPICAL) 20,000 UNIT SPRAY KIT ONE (11:13)
[2017-09-04] MEDS ORDERED: HEPARIN SODIUM - IV 10,000 UNITS/10 ML VIAL ONE (11:13)
[2017-09-04] MEDS ORDERED: BUPIVACAINE HCL PF 0.5% 30 ML VIAL ONE (11:13)
[2017-09-04] MEDS ORDERED: ceFAZolin 2 GM PREMIX 50 ML ONE (11:13)
[2017-09-04] MEDS ORDERED: PROTAMINE SULFATE 50 MG/5 ML VIAL ONE (11:14)
[2017-09-04] MEDS ORDERED: FAMOTIDINE 20 MG/2 ML VIAL ONE (11:22)
--- NOTE | 2017-09-04 11:33 | MB ---
cc: NELSON WHITFIELD M.D., LYDIA T. MD DATE OF CONSULTATION 09/04/[address] Miladis Barahona. REASON FOR CONSULTATION Hematology is consulted to render an opinion regarding patient with a history of chronic ITP, admitted with arterial clot. HISTORY OF PRESENT ILLNESS Ms. Cruz is a very pleasant 67-year-old female who presented to the emergency room complaining of bilateral leg pain and paresthesia which happened acutely yesterday while she was driving. She stated she was driving to see her auto parker in [place] when she developed pain in the bilateral legs but more so in the left leg. The pain progressively got worse and she noticed some purplish discoloration of her left foot. She went to the emergency room. CT angiogram showed emboli to popliteal artery with complete occlusion of the left distal runoff. She has a history of chronic ITP and has been followed by a hematology group. She is not currently on any treatment and she stated that lately her platelet count has been around 40,000 to 70,000. She was also recently found to have anemia and had a bone marrow biopsy done about a month and a half ago which reportedly was nonrevealing. She denies any family history of blood clot. She did start on Procrit injections and so far has had two injections, the last one about a week and a half ago. She was also recently treated for an upper respiratory infection with prednisone and Z-Mike. She otherwise denies any fever or chills. She has no constitutional symptoms. She has no chest pain. She denies shortness of breath or cough. Denies nausea, vomiting, diarrhea or abdominal pain. Denies melena or hematochezia. Denies dysuria or hematuria. PAST MEDICAL HISTORY 1. Chronic ITP. 2. Chronic anemia. 3. Chronic back pain. 4. Multiple compression fractures. 5. Chronic obstructive pulmonary disease. 6. Hypertension. PAST SURGICAL HISTORY 1. Splenectomy May 2010. 2. . 3. Right eye cataract surgery. 4. Tubal ligation. 5. Right total hip surgery. 6. Tonsillectomy. 7. Bone marrow biopsy; the last one about a month and a half ago. FAMILY HISTORY Mother had hypertension. Father had heart disease. No history of blood clot. SOCIAL HISTORY Smoked a pack a day from age 14 to 65; quit 2 years ago. She drinks occasionally. ALLERGIES 1. SULFA DRUGS. 2. CIPROFLOXACIN. MEDICATIONS Current medications: 1. Lisinopril. 2. Singulair. 3. Spiriva. 4. Flexeril. 5. Pulmicort. 6. Argatroban. REVIEW OF SYSTEMS CONSTITUTIONAL: Negative. EYES: Negative. ENT: Negative. CARDIOVASCULAR: Denies chest pressure or palpitations. RESPIRATORY: Denies shortness of breath or cough. GI: Negative. : No dysuria or hematuria. MUSCULOSKELETAL: Negative. HEMATOLOGIC: As above. ENDOCRINE: Negative. DERMATOLOGIC: Negative. PSYCHIATRIC: Negative. NEUROLOGIC: Negative. PHYSICAL EXAMINATION VITAL SIGNS: Temperature 97.5, blood pressure 117/64. O2 saturation 99% on two liter nasal cannula. GENERAL: She is alert and oriented x3, in no acute distress. HEENT: Atraumatic, normocephalic. Pupils equal, round and reactive to light. Extraocular muscles intact. No scleral icterus. Oropharynx dry mucosa, no lesion, no thrush, no mucositis. NECK: No thyromegaly. No palpable mass. LYMPHATICS: No palpable cervical, clavicular, axillary or inguinal lymph nodes. CARDIOVASCULAR: Regular S1, S2. No murmur. LUNGS: Bilateral wheezes and distant breath sounds. ABDOMEN: Soft, nontender. I could not palpate the liver or spleen. EXTREMITIES: The left foot is roller print tender and cool to touch. I do not see any discoloration. She has no calf tenderness. BACK: No paravertebral tenderness. SKIN: No rash or petechia. NEUROLOGIC: Nonfocal. LABORATORY DATA WBC 10.4, hemoglobin 8.1, platelet count 41,000. PTT 32. Creatinine 0.58. Liver transaminases within normal limits. ASSESSMENT 1. Left popliteal arterial occlusion, likely embolic, etiology unclear. She has no personal or family history of a thromboembolic event. She started Procrit injection recently, and had the last dose about a week and a half ago. Procrit could possibly cause a blood clot but is rather unusual. She is going to have an embolectomy later today. She is awaiting further work-up with echocardiogram to look for the source of emboli. She was started on argatroban in the emergency room and her symptoms have improved. She can continue the argatroban. After the procedure she could be started on Coumadin which I think is the best choice for her since it could be reversed if she develops any bleeding complication due to the thrombocytopenia. She may also need an antiplatelet agent but I will leave the decision to the vascular surgeon. 2. Chronic idiopathic thrombocytopenic purpura, reportedly diagnosed in 2009. She had a splenectomy. She was on Nplate for about 13 weeks and had a good response. She had been observed. A year ago she was given another course of Nplate prior to her hip surgery. She is currently not on any treatment. She stated her platelet count has fluctuated between 40,000 and 70,000. She has no evidence of bleeding at this time. Will continue to monitor her closely. 3. Anemia, which reportedly is rather new onset. She stated her hemoglobin has been around 8 recently. She just had a bone marrow biopsy about a month and a half ago which reportedly was unremarkable. She has follow-up with the auto parker in [place]. 4. Chronic back pain. 5. Chronic obstructive pulmonary disease with baseline shortness of breath and cough. 6. Hypertension. PLAN 1. Continue argatroban. 2. Await embolectomy. 3. She can be bridged to Coumadin once she is done with the invasive procedure. I defer to the vascular surgeon to decide whether the patient needs an antiplatelet agent. 4. Monitor CBC. Thank you, Dr. Barahona, for asking me to see this patient. MD GLORIA Abraham/AXEL /10:31 AM /10:52 AM DANIEL
--- NOTE | 2017-09-04 12:20 | HHI.PR ---
cc: Swapnil Mixon MD Immediate Post Op Note Procedure Date: Sep 04, 2017 Pre Op Diagnosis: L LE popliteal occlusion Post Op Diagnosis: L LE popliteal occlusion Surgeon: Swapnil Mixon Oncology Admin(s): Cheryl Lugo Procedure: L popliteal embolectomy via leg incision Findings: acute on chronic thrombus L LE Strong PT signals (triphasic) after embolectomy Additional Information: good B pedal signals Complications: none Specimen(s) removed: L popliteal contents for pathology Estimated blood loss: 25mL Anesthesia: General Drains: None Fluids: 1000mL IVF Patient to: PACU Patient Condition: Good Date/Time of Procedure: SEE SURGICAL CARE RECORD Swapnil Mixon MD Sep 04, 2017 12:20
[2017-09-04] MEDS ORDERED: *morphine SULFATE 4 MG/ML PERIprocedure ONLY ONE (12:43)
[2017-09-04] MEDS ORDERED: DO NOT ADM ANY ANTICOAGULANT DRUGS PRN (13:30)
[2017-09-04] MEDS ORDERED: DEXAMETHASONE SOD PHOS 4 MG/ML VIAL IV ONE (14:17)
[2017-09-04] MEDS ORDERED: LIDOCAINE HCL 1% PF 5 ML SYRINGE OTHER ONE (14:17)
[2017-09-04] MEDS ORDERED: NORMOSOL R INJ 1,000 ML IV ONE (14:17)
[2017-09-04] MEDS ORDERED: ONDANSETRON HCL 4 MG/2 ML VIAL IV PUSH ONE (14:17)
[2017-09-04] MEDS ORDERED: PROPOFOL 200 MG/20 ML AMP IV ONE (14:17)
[2017-09-04] MEDS ORDERED: ARGATROBAN INJ 250 MG in SODIUM CHLOR 0.9% 250 ML INJ 250 ML IV PRN (16:00)
--- NOTE | 2017-09-04 17:09 | HHI.PR ---
Subjective Remarks Follow-up arterial occlusion Patient seen after surgery. She is complaining about not able to urinate in a urinal. Patient says its psychological for her. She stated that she can urinate but she will not urinate. She is asking for straight catheter. Discussed case with patient's nurse. Otherwise she has no complaints. Her is at the bedside. Objective Vitals Vital Signs Date Time Temp Pulse Resp B/P (MAP) Pulse Ox O2 Delivery O2 Flow Rate FiO2 09/04/17 16:00 97.3 100 19 160/90 (113) 96 09/04/17 12:58 95 19 145/64 (91) 100 Nasal Cannula 2 09/04/17 12:45 91 21 137/63 (87) 100 Nasal Cannula 2 09/04/17 12:33 97.9 94 26 148/64 (92) 99 Nasal Cannula 2 09/04/17 08:00 97.5 91 19 117/64 (81) 99 09/04/17 04:38 97.5 87 17 110/57 (74) 96 09/04/17 03:33 98 Nasal Cannula 2.00 09/04/17 00:17 96.4 80 18 133/64 (87) 95 09/03/17 20:00 96.0 98 20 148/67 (94) 96 09/03/17 18:28 Nasal Cannula 2.00 09/03/17 18:15 85 16 149/73 (98) 97 2.00 I/O 09/03/17 09/03/17 09/03/17 09/04/17 09/04/17 09/04/17 07:00 15:00 23:00 07:00 15:00 23:00 Intake Total 1240 ml Output Total 1000 ml 25 ml Balance -1000 ml 1215 ml Platelets 220 ml Blood Product IV Normal Saline Flush 20 ml Other 1000 ml Output Urine Total 1000 ml Estimated Blood Loss 25 ml Bladder Scan Volume Amount 341 ml # Voids 1 Result Diagram: 09/04/1710709/04/17107 Objective Remarks GENERAL: in NAD CARDIOVASCULAR: Regular rate and rhythm without murmurs, gallops, or rubs. RESPIRATORY: Breath sounds equal bilaterally. No accessory muscle use. GASTROINTESTINAL: Abdomen soft, non-tender, nondistended. MUSCULOSKELETAL:LE pulses intact. Left anterior wound dry clean and intact. There is intact. Lower extremity positive warmth. Medications and IVs Current Medications Sodium Chloride (NS Flush) 2 ml UNSCH PRN IVF FLUSH AFTER USING IV ACCESS; Start 09/03/17 at 14:30 Heparin Sodium (Porcine) (Heparin Inj) 5,000 units ONCE ONCE IV PUSH ; Start at 14:30; Stop 09/03/17 at 17:18; Status DC Heparin Sodium/ Dextrose 250 ml @ 0 mls/hr TITRATE PRN IV Coagulation Management; Start 09/03/17 at 14:30; Status Cancel Heparin Sodium/ Dextrose 250 ml @ 11 mls/hr TITRATE PRN IV Coagulation Management; Start 09/03/17 at 15:00; Stop 09/03/17 at 17:18; Status DC Iohexol (Omnipaque 350 Inj) 100 ml STK-MED ONCE IVCONTRAST Last administered on 09/03/17at 15:42; Start 09/03/17 at 15:42; Stop 09/03/17 at 15:43; Status DC Sodium Chloride 1,000 ml @ 100 mls/hr Q10H IV Last administered on 09/04/17at 15 :07; Start 09/03/17 at 17:21 Sodium Chloride (NS Flush) 2 ml UNSCH PRN IV FLUSH FLUSH AFTER USING IV ACCESS Last administered on 09/03/17at 18:11; Start 09/03/17 at 17:30 Sodium Chloride (NS Flush) 2 ml BID IV FLUSH Last administered on 09/03/17at 23: 09; Start 09/03/17 at 21:00 Acetaminophen (Tylenol) 650 mg Q4HR PRN PO TEMP > 100.4; Start 09/03/17 at 20:00 Ondansetron HCl (Zofran Inj) 4 mg Q6HR PRN IVP NAUSEA OR VOMITING Last administered on 09/03/17at 18:10; Start 09/03/17 at 18:00 Naloxone HCl (Narcan Inj) 0.4 mg UNSCH PRN IV PUSH SEE LABEL COMMENTS; Start at 17:30 Magnesium Hydroxide (Milk Of Magnesia Liq) 30 ml Q12HR PRN PO Mild constipation ; Start 09/03/17 at 21:00 Albuterol Sulfate (Albuterol Neb) 2.5 mg Q4HR NEB PRN NEB SHORTNESS OF BREATH Last administered on 09/04/17at 03:33; Start 09/03/17 at 20:00 Budesonide (Pulmicort Respule Neb) 0.25 mg DAILY NEB NEB ; Start 09/04/17 at 08: 00 Cyclobenzaprine HCl (Flexeril) 20 mg BID PO ; Start 09/03/17 at 21:00; Stop at 21:33; Status DC Acetaminophen/ Hydrocodone Bitart ([place] 5-325 Mg) 1 tab Q4H PRN PO PAIN Last administered on 09/04/17at 07:43; Start 09/03/17 at 18:00 Lisinopril (Prinivil) 20 mg DAILY PO Last administered on 09/04/17at 07:43; Start 09/04/17 at 09:00 Montelukast Sodium (Singulair) 10 mg DAILY PO Last administered on 09/04/17at 07: 42; Start 09/04/17 at 09:00 Tiotropium [place] (Spiriva Inh) 18 mcg DAILY INH Last administered on at 08:13; Start 09/04/17 at 09:00 Non-Formulary Medication 1 nebule BID INH ; Start 09/03/17 at 21:00; Status Future Hold Potassium Chloride (KCl) 30 meq ONCE ONCE PO Last administered on 09/04/17at 00: 03; Start 09/03/17 at 17:30; Stop 09/03/17 at 17:31; Status DC Miscellaneous Medication ([facility] Discontinue all forms of heparin... ONCE ONCE OTHER Last administered on 09/03/17at 17:45; Start 09/03/17 at 17:45; Stop 09/03/17 at 17:46; Status DC Argatroban 250 mg/ Sodium Chloride 252.5 ml @ 7.33 mls/hr TITRATE PRN IV aPTT < 50 Last administered on 09/03/17at 23:08; Start 09/03/17 at 17:45; Stop 09/04/17 at 12:21; Status DC Morphine Sulfate (Morphine Inj) 6 mg ONCE ONCE IV PUSH ; Start 09/03/17 at 17:45 ; Stop 09/03/17 at 17:46; Status DC Hydromorphone HCl (Dilaudid Pf Inj) 0.5 mg ONCE ONCE IV PUSH Last administered on 09/03/17at 18:11; Start 09/03/17 at 18:15; Stop 09/03/17 at 18:16; Status DC Cyclobenzaprine HCl (Flexeril) 10 mg BID PO Last administered on 09/04/17at 07:43 ; Start 09/04/17 at 09:00 Cefazolin Sodium/ Dextrose 50 ml @ As Directed STK-MED ONCE .ROUTE Last administered on 09/04/17at 11:33; Start 09/04/17 at 11:13; Stop 09/04/17 at 11:14; Status DC Thrombin (Thrombin [place]) 20,000 units STK-MED ONCE .ROUTE Last administered on 09/04/17at 12:01; Start 09/04/17 at 11:13; Stop 09/04/17 at 11:14; Status DC Bupivacaine HCl (Marcaine Pf 0.5% Inj) 30 ml STK-MED ONCE .ROUTE Last administered on 09/04/17at 12:08; Start 09/04/17 at 11:13; Stop 09/04/17 at 11:14; Status DC Heparin Sodium (Porcine) (Heparin Inj) 10,000 units STK-MED ONCE .ROUTE Last administered on 09/04/17at 11:50; Start 09/04/17 at 11:13; Stop 09/04/17 at 11:14; Status DC Protamine Sulfate (Protamine Sulfate Inj) 50 mg STK-MED ONCE .ROUTE ; Start 09/04 at 11:14; Stop 09/04/17 at 11:15; Status DC Famotidine (Pepcid Inj) 20 mg STK-MED ONCE .ROUTE ; Start 09/04/17 at 11:22; Stop 09/04/17 at 11:23; Status DC Fentanyl Citrate (fentaNYL INJ) 100 mcg STK-MED ONCE .ROUTE ; Start 09/04/17 at 12:14; Stop 09/04/17 at 12:15; Status DC Argatroban 250 mg/ Sodium Chloride 252.5 ml @ 7.33 mls/hr TITRATE PRN IV aPTT < 50 Last administered on 09/04/17at 16:09; Start 09/04/17 at 16:00 Morphine Sulfate (*morphine INJ PERIprocedure ONLY) 4 mg STK-MED ONCE .ROUTE Last administered on 09/04/17at 12:43; Start 09/04/17 at 12:43; Stop 09/04/17 at 12: 44; Status DC Miscellaneous Information ALL NURSING DEPARTME... UNSCH PRN .XX SEE LABEL COMMENTS; Start 09/04/17 at 13:30; Stop 09/05/17 at 13:29 A/P Assessment and Plan 67-year-old female with history of ITP, splenectomy, anemia, chronic back pain with 11 compression fractures, asthma/COPD on home O2 2L, HTN, presents with acute onset of left leg pain and paresthesias at 4pm on 09/03/17. Acute Left Popliteal Artery Occlusion: CTA images reviewed, shows emboli to the popliteal artery bilaterally, completely occlusive on the left. -Status post embolectomy by Dr. Calderon. -Management per vascular surgeon. ITP: s/p splenectomy. Platelets 50K. Sees tag writer Dr. Reyna at [facility]. -Tech Intern consulted per tag writer Continue argatroban. She can be bridged to Coumadin once she is done with the invasive procedure. They also stated they will defer to the vascular surgeon to decide whether the patient needs an antiplatelet agent. -Monitor CBC COPD, O2 Dependent on 2L NC: chronic, appears stable. Her loan service officer is Dr. Hooper in [place]. -continue home Spiriva, Perforomist, albuterol nebs, budesonide neb -continue O2 Chronic Back Pain: with reported hx of 11 compression fractures. Follows as outpatient with [facility] [place] -continue patient's home flexeril and [place] -IV dilaudid prn breakthrough pain DVT Prophylaxis: On Argatroban Discussed case with patient's nurse. Patient told the risks and benefits of straight catheter including increasing rest of infection. She stated she understood. Will do once since patient unable to urinate in a urinal. She's also is not allowed to get out of bed per directions from surgeon. Nurse put a call out to surgeon to see if patient can ambulate. Miladis Barahona MD Sep 04, 2017 17:09
[2017-09-05] VITALS: BP 148/86; PULSE 115; RESP 20; TEMP 96.4; O2SAT 95
[2017-09-05] MEDS: RESP: ALBUTEROL 2.5 MG/3 ML NEB (PRN) NEB (01:19)
[2017-09-05 03:49] VITALS: PULSE 93
[2017-09-05 04:00] VITALS: BP_SYST 126; BP_SYST 99; BP_DIAS 55; BP_DIAS 62; PULSE 65; PULSE 97; RESP 18; RESP 20; TEMP 97.1; TEMP 97.4; O2SAT 93; O2SAT 99
[2017-09-05 04:47] LABS: HEMATOCRIT 25.4 % (35.0-46.0); HEMOGLOBIN 8.6 GM/DL (11.6-15.3); MEAN CELL VOLUME 128.2 FL (80.0-100.0); MEAN CORPUSCULAR HEMOGLOBIN 43.5 PG (27.0-34.0); MEAN CORPUSCULAR HGB CONC 33.9 % (32.0-36.0); MEAN PLATELET VOLUME 8.5 FL (7.0-11.0); PLATELET COUNT 118 TH/MM3 (150-450); RED BLOOD COUNT 1.98 MIL/MM3 (4.00-5.30); RED CELL DISTRIBUTION WIDTH 13.9 % (11.6-17.2); WHITE BLOOD COUNT 7.1 TH/MM3 (4.0-11.0)
[2017-09-05 05:13] LABS: BICARBONATE 30.6 MEQ/L (21.0-32.0); CALCIUM 8.2 MG/DL (8.5-10.1); CREATININE 0.66 MG/DL (0.50-1.00)
--- NOTE | 2017-09-05 07:05 | MP ---
cc: HÉCTOR MIXON MD DATE OF SURGERY September 04, 2017 PREOPERATIVE DIAGNOSIS Left lower extremity popliteal embolus. POSTOPERATIVE DIAGNOSIS Left lower extremity popliteal embolus. PROCEDURE Left popliteal embolectomy via leg incision. ATTENDING SURGEON Héctor Mixon MD CONCRETE PUMP OPERATOR HELPER SURGEON Cheryl Palafox ANESTHESIA General. INDICATIONS Ms. Cruz is an elderly female who presented with left leg pain and a CT scan suggested she had a popliteal embolus and she is taken to the operating room for angiographic evaluation and treatment. Of note, she has refractory idiopathic thrombocytopenia and so heparin was avoided during the case. DESCRIPTION OF PROCEDURE Informed consent was obtained from the patient. She was taken to the operating room and placed supine on the operating room table. An appropriate time-out was taken to ensure the patient's identity, operative site and planned procedure. 2 grams of Ancef were initiated prior to skin incision and will be discontinued after a single preoperative dose. Everyone in the room agreed with the time-out and we proceeded. She was prepped from her nipples to her toes. An incision was made on the anterior aspect of the upper thigh on the left-hand side and carried down through the subcutaneous tissue with electrocautery. The SFA was identified and encircled with a vessel loop. Proximal and distal control of the SFA were obtained with profunda clamps and transverse arteriotomy was made with an 11 blade and a Bud embolectomy catheter was used and this was passed down to the level of the mid-calf and popliteal intraluminal contents were extracted and brisk back-bleeding was encountered. The contents were passed off the table as specimen for pathology and the arteriotomy was closed with interrupted 6-0 Prolene suture. At the completion it was flushed and made hemostatic. There was a multiphasic Doppler signal in the foot. The wound was irrigated and infiltrated with Marcaine and closed with 2-0 Polysorb, 3-0 Polysorb and 4-0 Monocryl. The sponge and needle counts were correct at the end of the case I was present and scrubbed and performed the entire procedure. MD SHARA Lake/EFFIE /9:10 PM /6:25 AM
--- NOTE | 2017-09-05 07:26 | PD.VS.PN ---
Subjective POD #: 1 Procedure(s): L popliteal embolectomy Subjective/Hospital Course looks great this morning. No complaints. Objective Vitals/I&O Date Time Temp Pulse Resp B/P (MAP) Pulse Ox O2 Delivery O2 Flow Rate FiO2 09/05/17 04:00 97.1 65 18 99/55 (70) 93 09/05/17 04:00 97.4 97 20 126/62 (83) 99 09/05/17 03:49 93 09/05/17 00:00 96.4 115 20 148/86 (106) 95 09/04/17 23:49 82 09/04/17 20:43 97 Nasal Cannula 2.00 09/04/17 20:23 98 Nasal Cannula 2.00 Humidified 09/04/17 20:00 97.7 98 20 137/77 (97) 98 09/04/17 16:00 97.3 100 19 160/90 (113) 96 09/04/17 12:58 95 19 145/64 (91) 100 Nasal Cannula 2 09/04/17 12:45 91 21 137/63 (87) 100 Nasal Cannula 2 09/04/17 12:33 97.9 94 26 148/64 (92) 99 Nasal Cannula 2 09/04/17 08:00 97.5 91 19 117/64 (81) 99 09/05/17 09/05/17 09/05/17 07:00 15:00 23:00 Intake Total 330 ml Output Total 900 ml Balance -570 ml Exam: L thigh incision mildly ecchymotic, no swelling Pulses: palpable pedal pulses bilaterally Laboratory Laboratory Tests Test 09/04/17 18:17 09/05/17 01:05 09/05/17 04:30 Activated Partial Thromboplast Time 35.7 26.8 36.8 White Blood Count 7.1 Red Blood Count 1.98 Hemoglobin 8.6 Hematocrit 25.4 Mean Corpuscular Volume 128.2 Mean Corpuscular Hemoglobin 43.5 Mean Corpuscular Hemoglobin Concent 33.9 Red Cell Distribution Width 13.9 Platelet Count 118 Mean Platelet Volume 8.5 Blood Urea Nitrogen 11 Creatinine 0.66 Random Glucose 128 Calcium Level 8.2 Sodium Level 138 Potassium Level 3.9 Chloride Level 99 Carbon Dioxide Level 30.6 Anion Gap 8 Estimat Glomerular Filtration Rate 89 Assessment and Plan Plan POD#1 s/p L popliteal embolectomy, palpable pulses this morning 1. Normalize (OOB, ambulate) 2. Probably needs TTE and systemic anticoagulation 3. Ok to d/c from vascular surgery standpoint anytime - will arrange f/u in my clinic in 2-3 weeks with ABIs Swapnil Mixon MD FACS RPVI technical applications specialist [facility] - [facility] V[facility] Surgery at [facility] [phone] Swapnil Mixon MD Sep 05, 2017 07:26
[2017-09-05 08:00] VITALS: BP 109/58; PULSE 102; RESP 20; TEMP 97.6; O2SAT 100
[2017-09-05 08:19] VITALS: O2SAT 100
[2017-09-05] MEDS: RESP: BUDESONIDE 0.25 MG/2 ML NEB NEB SCH (08:19)
[2017-09-05] MEDS: CYCLOBENZAPRINE HCL 10 MG TAB PO SCH (08:22)
[2017-09-05] MEDS: MONTELUKAST SODIUM 10 MG TAB PO SCH (08:22)
[2017-09-05] MEDS: LISINOPRIL 20 MG TAB PO SCH (08:22)
[2017-09-05] MEDS: ACETAMINOPHEN/HYDROcodone 325 MG/5 MG TAB PO PRN (08:23)
[2017-09-05] MEDS: SODIUM CHLORIDE 0.9% FLUSH 10 ML FLUSH IV FLUSH SCH (08:23)
[2017-09-05 09:23] VITALS: RESP 20
[2017-09-05] MEDS ORDERED: HYDR-3516 PO (09:49)
[2017-09-05] MEDS ORDERED: PRAD150C PO (09:49)
--- NOTE | 2017-09-05 09:51 | HHI.DS ---
Discharge Summary Admission Date Sep 03, 2017 at 17:18 Discharge Date: Sep 05, 2017 Admitting Diagnosis Arterial Occlusion LLE; ITP w Thrombocytopenia (1) Arterial occlusion ICD Code: I70.90 - Unspecified atherosclerosis Diagnosis: Principal (2) Idiopathic thrombocytopenia purpura ICD Code: D69.3 - Immune thrombocytopenic purpura Diagnosis: Secondary Status: Acute Procedures see hospital course Brief History - From Admission 67-year-old female with history of ITP, splenectomy, anemia, chronic back pain with 11 compression fractures, asthma/COPD on home O2 2L, HTN, presents with acute onset of left leg pain and paresthesias. The patient reports she was driving to [place] around 4 PM today 09/03/17 when she started to feel muscle cramps in bilateral feet. Around 4:10 PM she started to get a severe 9/10 pain across her dorsal left foot and her left lateral calf associated with pins and needles and slight numbness. She also reports the left foot was colder than the right and has a slight purple discoloration in the toes. She states she pulled over and let her drive the vehicle, and they turned around and came back to [facility]. She states any ambulation made the pain worse. She did not get any relief until she received IV Dilaudid in the ER. She denies any other medical complaints including no headache, lightheadedness, chest pain, palpitations, or abdominal complaints. She has COPD O2 dependent on 2 L nasal cannula at home, and has chronic shortness of breath at baseline. She was recently treated for URI, finished a Z-Mike and prednisone taper on Friday08/31/17. She states she recently had a checkup with her galley stripper Dr. Santos and everything was fine at that appointment. She also sees general claims agent Dr. Reyna at [facility]. Her sound engineering technician is Dr. Hooper in [place]. She also goes to [facility] [place] for her chronic back pain. The patient has no other medical complaints to report at this time. CBC/BMP: 09/05/17 0430 09/05/17 0430 Significant Findings Laboratory Tests Test 09/03/17 14:45 09/04/17 01:08 09/04/17 05:18 09/04/17 18:17 Red Blood Count 2.00 MIL/MM3 (4.00-5.30) 1.88 MIL/MM3 (4.00-5.30) Hemoglobin 8.3 GM/DL (11.6-15.3) 8.1 GM/DL (11.6-15.3) Hematocrit 25.2 % (35.0-46.0) 24.3 % (35.0-46.0) Mean Corpuscular Volume 126.3 FL (80.0-100.0) 128.9 FL (80.0-100.0) Mean Corpuscular Hemoglobin 41.5 PG (27.0-34.0) 42.8 PG (27.0-34.0) Platelet Count 50 TH/MM3 (150-450) 41 TH/MM3 (150-450) Lymphocytes (%) (Auto) 54.6 % (9.0-44.0) 53.9 % (9.0-44.0) Lymphocytes # (Auto) 6.1 TH/MM3 (1.0-4.8) 5.6 TH/MM3 (1.0-4.8) Lymphocytes % 66 % (9-44) 55 % (9-44) Platelet Estimate LOW (NORMAL) LOW (NORMAL) Tear Drop Cells 1+ (NORMAL) Ovalocytes 1+ (NORMAL) 1+ (NORMAL) Keratocytes 1+ (NORMAL) Activated Partial Thromboplast Time 21.4 SEC (24.3-30.1) 32.1 SEC (24.3-30.1) 35.7 SEC (24.3-30.1) Random Glucose 117 MG/DL (74-106) Potassium Level 3.4 MEQ/L (3.5-5.1) Aspartate Amino Transf (AST/SGOT) 14 U/L (15-37) Monocytes % 9 % (0-8) Polychromasia 2.0 % (0.0-1.9) Basophilic Stippling FAINT (NORMAL) Acanthocytes OCC (NORMAL) Prothrombin Time 12.0 SEC (9.8-11.6) Carbon Dioxide Level 33.7 MEQ/L (21.0-32.0) Anion Gap 4 MEQ/L (5-15) Test 09/05/17 01:05 09/05/17 04:30 09/05/17 09:03 Red Blood Count 1.98 MIL/MM3 (4.00-5.30) Hemoglobin 8.6 GM/DL (11.6-15.3) Hematocrit 25.4 % (35.0-46.0) Mean Corpuscular Volume 128.2 FL (80.0-100.0) Mean Corpuscular Hemoglobin 43.5 PG (27.0-34.0) Platelet Count 118 TH/MM3 (150-450) Activated Partial Thromboplast Time 36.8 SEC (24.3-30.1) 38.5 SEC (24.3-30.1) Random Glucose 128 MG/DL (74-106) Calcium Level 8.2 MG/DL (8.5-10.1) Imaging Last Impressions Aorta w/Runoff CTA 09/03/17 0000 Signed Impressions: Service Date/Time: Sunday, September 03, 2017 15:24 - CONCLUSION: 1. Finding of emboli to the popliteal artery bilaterally completely occlusive on the left distal runoff present. The findings were discussed with Dr. Hernandez at time of dictation Rojelio Penn MD PE at Discharge GENERAL: in NAD CARDIOVASCULAR: Regular rate and rhythm without murmurs, gallops, or rubs. RESPIRATORY: Breath sounds equal bilaterally. No accessory muscle use. GASTROINTESTINAL: Abdomen soft, non-tender, nondistended. MUSCULOSKELETAL:LE pulses intact. Left anterior wound dry clean and intact. There is intact. Lower extremity positive warmth. Pt update on day of discharge f/u for arterial occlusion s/p thrombectomy patient asking to leave soon and that she was cleared by vascular surgeon. She stated she only wants to be on Pradaxa and will speak to her general claims agent soon in regards to this. she has no complaints. Denied any pain. + ambulating. at bedside. Hospital Course 67-year-old female with history of ITP, splenectomy, anemia, chronic back pain with 11 compression fractures, asthma/COPD on home O2 2L, HTN, presents with acute onset of left leg pain and paresthesias at 4pm on 09/03/17. Acute Left Popliteal Artery Occlusion: CTA images reviewed, shows emboli to the popliteal artery bilaterally, completely occlusive on the left. -Status post embolectomy by Dr. Calderon on 09/04/2017. did well. ITP: s/p splenectomy. Platelets 50K. Sees general claims agent Dr. Reyna at [facility]. -Roll Former consulted per general claims agent Continue argatroban. She can be bridged to Coumadin once she is done with the invasive procedure. They also stated they will defer to the vascular surgeon to decide whether the patient needs an antiplatelet agent. patient declined coumadin and stated she will only take pradaxa. COPD, O2 Dependent on 2L NC: chronic, appears stable. Her sound engineering technician is Dr. Hooper in [place]. -continue home Spiriva, Perforomist, albuterol nebs, budesonide neb -continue O2 Chronic Back Pain: with reported hx of 11 compression fractures. Follows as outpatient with [facility] [place] -continue patient's home flexeril and [place] - Pt Condition on Discharge: Good Discharge Disposition: Discharge Home Discharge Time: <= 30 minutes Discharge Instructions DIET: Follow Instructions for: Heart Healthy Diet Activities you can perform: See Additionl Instruction Other Activity Instructions: as directed by your surgeon. Follow up Referrals: Appointment for Follow Up Oncology/Hematology - 3-5 Days PCP Follow-up - 1 Week PCP Follow-up Vascular Surgery - 2 Weeks with Swapnil Mixon MD Vascular Surgery New Medications: Dabigatran (Pradaxa) 150 Mg Cap 150 MG PO BID for anticoagulation, #60 CAP 0 Refills Continued Medications: Albuterol 18 GM Inh (Ventolin Hfa 18 GM Inh) 90 Mcg/Act Aer 2 PUFF INH Q4-6H PRN for SHORTNESS OF BREATH, #1 INHALER 0 Refills Albuterol Neb (Albuterol Neb) 2.5 Mg/3 Ml Neb 2.5 MG NEB Q4HR NEB PRN for SHORTNESS OF BREATH, #60 NEBULE 0 Refills Budesonide Neb (Budesonide Neb) 0.25 Mg/2 Ml Neb 0.25 MG NEB DAILY NEB for Breathing Treatment, #30 NEBULE 0 Refills Cyclobenzaprine (Flexeril) 10 Mg Tab 20 MG PO BID for Muscle Spasm, #90 TAB 0 Refills Formoterol Neb (Perforomist Neb) 20 Mcg/2 Ml Neb 1 NEBULE INH BID for COPD, #60 NEBULE 0 Refills Hydrocodone-Acetaminophen (Hydrocodone-Acetaminophen) 5-325 mg Tab 1 TAB PO Q4H PRN for PAIN, #20 TAB 0 Refills (This prescription has been renewed ) Lisinopril (Lisinopril) 20 Mg Tab 20 MG PO DAILY, #30 TAB 0 Refills Montelukast (Montelukast) 10 Mg Tab 10 MG PO DAILY, #30 TAB 0 Refills Tiotropium Inh (Spiriva [place]ihaler) 18 Mcg Cap 18 MCG INH DAILY for COPD, #30 CAP 0 Refills 1 capsule = 18 mcg Miladis Barahona MD Sep 05, 2017 09:51
--- NOTE | 2017-09-05 09:51 | HHI.DCPOC ---
Discharge Care Plan Diagnosis: (1) Arterial occlusion, lower extremity (2) Idiopathic thrombocytopenia purpura Goals to Promote Your Health * To prevent worsening of your condition and complications * To maintain your health at the optimal level Directions to Meet Your Goals Take your medications as prescribed Follow your dietary instruction Follow activity as directed Keep your appointments as scheduled Take your immunizations and boosters as scheduled If your symptoms worsen call your PCP, if no PCP go to Urgent Care Center or Emergency Room Smoking is Dangerous to Your Health. Avoid second hand smoke Call the 24-hour hour crisis hotline for domestic abuse at Miladis Barahona MD Sep 05, 2017 09:51
[2017-09-05] MEDS ORDERED: DABIGATRAN ETEXILATE 150 MG CAP PO SCH (10:00)
--- NOTE | 2017-09-05 13:26 | PD.ONC.PN ---
Subjective Subjective Remarks Late entry-->patient seen at 11AM Afebrile overnight. Patient resting in room, ready to go home. Objective Data Date Time Temp Pulse Resp B/P (MAP) Pulse Ox O2 Delivery O2 Flow Rate FiO2 09/05/17 09:23 20 09/05/17 08:00 97.6 102 20 109/58 (75) 100 09/05/17 07:00 98 Nasal Cannula 2.00 Humidified 09/05/17 04:00 97.1 65 18 99/55 (70) 93 09/05/17 04:00 97.4 97 20 126/62 (83) 99 09/05/17 03:49 93 09/05/17 00:00 96.4 115 20 148/86 (106) 95 09/04/17 23:49 82 09/04/17 20:43 97 Nasal Cannula 2.00 09/04/17 20:23 98 Nasal Cannula 2.00 Humidified 09/04/17 20:00 97.7 98 20 137/77 (97) 98 09/04/17 16:00 97.3 100 19 160/90 (113) 96 09/05/17 09/05/17 09/05/17 07:00 15:00 23:00 Intake Total 330 ml Output Total 900 ml Balance -570 ml Result Diagram: 09/05/17 0430 09/05/17 0430 Laboratory Results Laboratory Tests Test 09/04/17 18:17 09/05/17 01:05 09/05/17 04:30 09/05/17 09:03 Activated Partial Thromboplast Time 35.7 SEC 26.8 SEC 36.8 SEC 38.5 SEC White Blood Count 7.1 TH/MM3 Red Blood Count 1.98 MIL/MM3 Hemoglobin 8.6 GM/DL Hematocrit 25.4 % Mean Corpuscular Volume 128.2 FL Mean Corpuscular Hemoglobin 43.5 PG Mean Corpuscular Hemoglobin Concent 33.9 % Red Cell Distribution Width 13.9 % Platelet Count 118 TH/MM3 Mean Platelet Volume 8.5 FL Blood Urea Nitrogen 11 MG/DL Creatinine 0.66 MG/DL Random Glucose 128 MG/DL Calcium Level 8.2 MG/DL Sodium Level 138 MEQ/L Potassium Level 3.9 MEQ/L Chloride Level 99 MEQ/L Carbon Dioxide Level 30.6 MEQ/L Anion Gap 8 MEQ/L Estimat Glomerular Filtration Rate 89 ML/MIN Objective Remarks GENERAL: Middle aged female, sitting up on side of bed, putting shoes on. SKIN: Warm and dry. HEAD: Normocephalic. EYES: No injection or drainage. NECK: Supple, trachea midline. CARDIOVASCULAR: +S1/S2. RESPIRATORY: Breath sounds equal bilaterally. No accessory muscle use. GASTROINTESTINAL: Abdomen soft, non-tender, nondistended. EXTREMITIES: No cyanosis NEUROLOGICAL: awake and alert, normal speech. moving all extremities. Assessment/Plan Problem List: (1) Arterial occlusion ICD Codes: I70.90 - Unspecified atherosclerosis Plan: --Left popliteal arterial occlusion, likely embolic, etiology unclear. --on Argatroban since admission --Coumadin would be the best choice for oral anticoagulant, but patient stating she will not stay for bridge to coumadin. --may also need an antiplatelet agent but will defer to the vascular surgeon. (2) Idiopathic thrombocytopenia purpura ICD Codes: D69.3 - Immune thrombocytopenic purpura Status: Acute Plan: --Chronic idiopathic thrombocytopenic purpura, reportedly diagnosed in 2009. --s/p splenectomy. -- was on Nplate for about 13 weeks and had a good response. She had been observed. A year ago she was given another course of Nplate prior to her hip surgery. She is currently not on any treatment. Assessment 67y/o female with a history of chronic ITP, admitted with arterial clot. Chronic ITP. Chronic anemia. Plan 1. stop Argatroban and start Pradaxa 2. follow up with her plastic eye technician within 1 week. Attending Statement The exam, history, and the medical decision-making described in the above note were completed with the assistance of the mid-level provider. I reviewed and agree with the findings presented. I attest that I had a [id number] encounter with the patient on the same day, and personally performed and documented my assessment and findings in the medical record. Late entry. BLE pain completely resolved after embolectomy. Tolerating argatroban, recommmend coumadin but pt does not want to stay in the hospital. As such, we will start her on Pradaxa and she will f/u with her primary plastic eye technician next week. Keke Foster Sep 05, 2017 13:26 Braden Luong MD Sep 05, 2017 20:23
--- NOTE | 2017-09-05 23:50 | EKG ---
Date Performed: 09/03/2017 Time Performed: 14:54:28 PTAGE: 67 years EKG: Sinus rhythm MODERATE ST DEPRESSION ABNORMAL ECG PREVIOUS TRACING : 11/02/2015 20.07 DOCTOR: Jazmine Gonzalez Interpretating Date/Time 09/05/2017 23:49:50
== END 2017-09-05 11:22 | disposition home or self-care (01) | DRG 253 ==
LOC: PHED 14:15 → PHEDA 17:18 → N07A 18:44
PROVIDERS: ADMIT Family Medicine; ATTEND Family Medicine
PROC: 04CN0ZZ Extirpation of Matter from Left Popliteal Artery, Open Approach (ICD-10-PCS; principal; 2017-09-04 12:00)
DX: I74.3 Embolism and thrombosis of arteries of the lower extremities (principal); D69.3 Immune thrombocytopenic purpura; Z99.81 Dependence on supplemental oxygen; J44.9 Chronic obstructive pulmonary disease, unspecified; I70.202 Unspecified atherosclerosis of native arteries of extremities, left leg; I10 Essential (primary) hypertension; D64.9 Anemia, unspecified; M46.90 Unspecified inflammatory spondylopathy, site unspecified; G89.29 Other chronic pain; M54.9 Dorsalgia, unspecified; Z82.49 Family history of ischemic heart disease and other diseases of the circulatory system; Z87.891 Personal history of nicotine dependence; Z88.2 Allergy status to sulfonamides; Z90.81 Acquired absence of spleen; Z96.641 Presence of right artificial hip joint
CPT/HCPCS: 36415; 36430; 75635; 80048; 80076; 83735; 85007; 85027; 85610; 85730; 86850; 86900; 86901; 86920; 88304; 88305; 93005; 94640; 94664; J0690; J0883; J1100; J1170; J1644; J2270; J2405; J2720; J3010; J7030; J7050; J7613; J7626; P9031; Q9967

== ENCOUNTER 2017-11-16 22:33 | Inpatient (IN) | payer MEDICARE, OTHER ==
[~2017-11-16] VITALS: Ht 157.5 cm; Wt 73.9 kg
[~2017-11-16 22:33] MED LIST changes: +ALBU0.08 NEB; -HYDR12.56 PO; +PRAD150C PO
[2017-11-16 23:04] VITALS: BP 70/49; PULSE 105; TEMP 97.4; O2SAT 95
[2017-11-16 23:24] VITALS: BP 90/72; PULSE 104; RESP 18
[2017-11-16] MEDS ORDERED: SODIUM CHLOR 0.9% 1000 ML INJ 1,000 ML IV SCH (23:26)
[2017-11-16] MEDS ORDERED: SODIUM CHLORIDE 0.9% FLUSH 10 ML FLUSH IV FLUSH PRN (23:30)
[2017-11-16] MEDS ORDERED: ONDANSETRON HCL 4 MG/2 ML VIAL IVP ONE (23:30)
[2017-11-16] MEDS ORDERED: PANTOPRAZOLE SODIUM 40 MG VIAL IVP ONE (23:30)
[2017-11-16] MEDS ORDERED: PIPERACIL-TAZO 4.5 GM PREMIX 100 ML IV ONE (23:30)
[2017-11-16 23:55] VITALS: O2SAT 97
[2017-11-17] VITALS (14 sets, daily range): BP systolic 103–145; BP diastolic 40–95; PULSE 98–111; RESP 16–20; TEMP 97.2–99; O2SAT 94–100
[2017-11-17 00:02] LABS: BASOPHIL # 0.1 TH/MM3 (0-0.2); BASOPHIL % 0.6 % (0.0-2.0); EOSINOPHIL % 0.1 % (0.0-4.0); HEMATOCRIT 38.4 % (35.0-46.0); HEMOGLOBIN 12.6 GM/DL (11.6-15.3); LYMPH % 12.9 % (9.0-44.0); LYMPHOCYTE # 1.3 TH/MM3 (1.0-4.8); MEAN CELL VOLUME 122.1 FL (80.0-100.0); MEAN CORPUSCULAR HEMOGLOBIN 40.2 PG (27.0-34.0); MEAN CORPUSCULAR HGB CONC 32.9 % (32.0-36.0); MEAN PLATELET VOLUME 8.1 FL (7.0-11.0); MONO % 5.8 % (0.0-8.0); MONOCYTE # 0.6 TH/MM3 (0-0.9); NEUT % 80.6 % (16.0-70.0); PLATELET COUNT 59 TH/MM3 (150-450); RED BLOOD COUNT 3.15 MIL/MM3 (4.00-5.30); RED CELL DISTRIBUTION WIDTH 16.4 % (11.6-17.2)
[2017-11-17 00:18] LABS: CHLORIDE 104 MEQ/L (98-107); SODIUM (NA) 139 MEQ/L (136-145)
[2017-11-17 00:21] LABS: CALCIUM 9.3 MG/DL (8.5-10.1)
[2017-11-17 00:22] LABS: ALBUMIN 3.8 GM/DL (3.4-5.0); BICARBONATE 22.3 MEQ/L (21.0-32.0); BLOOD UREA NITROGEN 29 MG/DL (7-18); GLUCOSE,RANDOM 138 MG/DL (74-106); MAGNESIUM 2.7 MG/DL (1.5-2.5)
[2017-11-17 00:25] LABS: ALT (GPT) 15 U/L (10-53); AST (GOT) 59 U/L (15-37); GLOMERULAR FILTRATION RATE 23 ML/MIN (>89)
[2017-11-17 00:27] LABS: TOTAL BILIRUBIN ADULT 0.9 MG/DL (0.2-1.0); TOTAL PROTEIN 7.3 GM/DL (6.4-8.2)
[2017-11-17 00:28] LABS: ALKALINE PHOSPHATASE 289 U/L (45-117)
[2017-11-17 00:35] LABS: BANDS 14 % (0-6); DOHLE BODIES PRESENT (NONE SEEN); LYMPHOCYTES 16 % (9-44); METAMYELOCYTES 1 % (0-1); MONOCYTES 5 % (0-8); NEUTROPHIL # MANUAL DIFF 7.9 TH/MM3 (1.8-7.7); POLYS (SEG NEUTROPHILS) 64 % (16-70)
[2017-11-17] MEDS ORDERED: POTASSIUM CHLORIDE 20 MEQ CONTROLLED RELEASE TAB PO ONE (00:45)
[2017-11-17] MEDS ORDERED: SODIUM CHLOR 0.9% 1000 ML INJ 1,000 ML IV ONE (00:45)
--- NOTE | 2017-11-17 00:47 | RADRPT ---
EXAM DATE/TIME: 11/16/2017 23:51 [facility] COMPARISON: CHEST SINGLE AP, November 02, 2015, 20:39. INDICATIONS : Shortness of breath. MEDICAL HISTORY : Hypertension. Chronic obstructive pulmonary disease. Asthma. SURGICAL HISTORY : None. ENCOUNTER: Initial ACUITY: 1 day PAIN SCORE: 0/10 LOCATION: Bilateral chest FINDINGS: Patient's chin obscures the right pulmonary apex. There is rotation of the patient towards the right . Visualized lungs are hyperinflated, but clear. No infiltrate seen. The heart is normal in size. Both hemidiaphragms are well delineated. CONCLUSION: Hyperaerated lungs. No infiltrates seen. Víctor Bates MD on November 17, 2017 at 0:42 Board Certified Radiologist. This report was verified electronically.
[2017-11-17 00:49] LABS: INTERNATIONAL NORMALIZED RATIO 1.4 RATIO; PROTHROMBIN TIME - PATIENT 13.7 SEC (9.8-11.6)
[2017-11-17] MEDS ORDERED: CEFEPIME INJ 2,000 MG in SODIUM CHLORIDE 0.9% INJ 100 ML IV ONE (02:00)
--- NOTE | 2017-11-17 02:10 | RADRPT ---
EXAM DATE/TIME: 11/17/2017 01:08 [facility] COMPARISON: No previous studies available for comparison. INDICATIONS : Abdominal pain. ORAL CONTRAST: No oral contrast ingested. RADIATION DOSE: 10.24 CTDIvol (mGy) MEDICAL HISTORY : Hypertension. Chronic obstructive pulmonary disease. SURGICAL HISTORY : Splenectomy. Tubal ligation. section.Right hip replacement. ENCOUNTER: Initial ACUITY: 2 days PAIN SCALE: 10/10 LOCATION: Bilateral lower quadrant upper quadrant TECHNIQUE: Volumetric scanning of the abdomen and pelvis was performed. Using automated exposure control and ad justment of the mA and/or kV according to patient size, radiation dose was kept as low as reasonably achievable to obtain optimal diagnostic quality images. DICOM format image data is available electro nically for review and comparison. FINDINGS: LOWER LUNGS: The visualized lower lungs are clear are hyperaerated. LIVER: Homogeneous density without lesion for noncontrast technique. There is no dilation of the biliary tr ee. No calcified gallstones. SPLEEN: Normal size without lesion. PANCREAS: Within normal limits. KIDNEYS: Normal in size and shape. There is no mass, stone, or hydronephrosis. ADRENAL GLANDS: Within normal limits. VASCULAR: There is no aortic aneurysm. BOWEL/MESENTERY: The stomach is distended and contains an air-fluid level. No dilated loops of small bowel. The colo n is distended with fluid filled lumen. There is a redundant loop in the transverse colon. ABDOMINAL WALL: Within normal limits. RETROPERITONEUM: There is no lymphadenopathy. BLADDER: No wall thickening or mass. REPRODUCTIVE: Within normal limits. INGUINAL: There is no lymphadenopathy or hernia. MUSCULOSKELETAL: Right total hip arthroplasty. CONCLUSION: 1. Distended stomach. 2. Fluid distended colon without dilated loops of small bowel. Víctor Bates MD on November 17, 2017 at 2:03 Board Certified Radiologist. This report was verified electronically.
[2017-11-17 02:22] LABS: BILIRUBIN, URINE NEG (NEG); BLOOD, URINE NEG (NEG); GLUCOSE,URINE NEG (NEG); KETONE, URINE NEG (NEG); NITRITE,URINE NEG (NEG); PH, URINE 5.5 (5.0-8.5); URINE COLOR YELLOW (YELLW/STRAW); URINE LEUKOCYTE ESTERASE NEG (NEG)
--- NOTE | 2017-11-17 02:29 | PD ---
HPI Chief Complaint: Abdominal Pain Time Seen by Provider: 23:26 Travel History International Travel<30 days: No Contact w/Intl Traveler<30days: No Traveled to known affect area: No History of Present Illness HPI 67-year-old female presents to the emergency department by private transportation for evaluation of severe abdominal pain. Patient states of the past week she has had constipation so last evening took laxatives and then today had large bowel movement multiple times with development of severe lower abdominal pain. Patient had subsequently noted some abdominal distention. Patient states her abdomen is exquisitely tender with any movement. Patient also complains of some epigastric pain. Patient's past medical history is significant for chronic idiopathic thrombocytopenic purpura status post splenectomy with platelet counts typically between 40,000 and 70,000 recently hospitalized in September 2017 because of left popliteal artery occlusion requiring embolectomy also history of chronic anemia chronic back pain COPD on supplemental oxygen and hypertension. Patient denies any chest pain or shortness of breath. Patient denies any fever or chills. Patient's had nausea without vomiting. No report of hematemesis or coffee-ground emesis. Patient states after bowel movements no report of melena or hematochezia. Patient rates her abdominal pain 10/10 in intensity. PFSH Past Medical History Narrative Medical Anemia arthritis asthma chronic ITP splenectomy bone marrow biopsy Nplate therapy COPD hypertension tubal ligation; nursing notes reviewed Hx Anticoagulant Therapy: No Anemia: Yes Arthritis: Yes Asthma: Yes Autoimmune Disease: Yes (ITP) Anxiety: No Depression: No Heart Rhythm Problems: No Cancer: No Cardiovascular Problems: Yes High Cholesterol: No Chest Pain: No Congestive Heart Failure: No COPD: Yes Diabetes: No Endocrine: No Gastrointestinal Disorders: No Genitourinary: No Hepatitis: No Hiatal Hernia: No Hypertension: Yes (HTN R/T PAIN, HYPOTENSION ISSUE IN PAST) Immune Disorder: No Kidney Stones: No Musculoskeletal: Yes Neurologic: No Psychiatric: No Reproductive: No Respiratory: Yes Renal Failure: No Sickle Cell Disease: No Sleep Apnea: No Thyroid Disease: No ?: Not Tubal Ligation: Yes Past Surgical History Abdominal Surgery: Yes (splenectomy) AICD: No Cardiac Surgery: No Section: Yes (x1) Ear Surgery: No Endocrine Surgery: No Eye Surgery: Yes (right eye implant cataract surgery) Genitourinary Surgery: No Gynecologic Surgery: Yes (C section/ tubal ligation) Joint Replacement: Yes (right hip) Oral Surgery: Yes (T&A) Pacemaker: No Thoracic Surgery: No Tonsillectomy: Yes Social History Alcohol Use: Yes (ocass mix drinks) Tobacco Use: No (quit 2 yrs smoked 1 ppd) Substance Use: No Allergies-Medications (Allergen,Severity, Reaction): Coded Allergies: Sulfa (Sulfonamide Antibiotics) (Verified Allergy, Severe, Hives, 11/16/17) ciprofloxacin (Verified Allergy, Severe, Hives, 11/16/17) Reported Meds & Prescriptions Reported Meds & Active Scripts Active Hydrocodone-Acetaminophen 5-325 mg Tab 1 Tab PO Q4H PRN Reported Xarelto (Rivaroxaban) 20 Mg Tab 20 Mg PO DAILY Albuterol Neb (Albuterol Sulfate) 2.5 Mg/3 Ml Neb 2.5 Mg NEB Q4HR NEB PRN Budesonide Neb 0.25 Mg/2 Ml Neb 0.25 Mg NEB DAILY NEB Ventolin Hfa 18 GM Inh (Albuterol Sulfate) 90 Mcg/Act Aer 2 Puff INH Q4-6H PRN Spiriva Handihaler (Tiotropium Inh) 18 Mcg Cap 18 Mcg INH DAILY 1 capsule = 18 mcg Montelukast (Montelukast Sodium) 10 Mg Tab 10 Mg PO DAILY Flexeril (Cyclobenzaprine HCl) 10 Mg Tab 20 Mg PO BID Lisinopril 20 Mg Tab 20 Mg PO DAILY Perforomist Neb (Formoterol Fumarate) 20 Mcg/2 Ml Neb 1 Nebule INH BID Review of Systems Except as stated in HPI: all other systems reviewed are Neg General / Constitutional: No: Fever, Chills HENT: No: Congestion Cardiovascular: No: Chest Pain or Discomfort Respiratory: No: Shortness of Breath Gastrointestinal: Positive: Nausea, Abdominal Pain, Constipation, No: Hematemesis, Hematochezia Genitourinary: No: Dysuria, Hematuria, Flank Pain Musculoskeletal: No: Myalgias, Arthralgias Skin: No Rash Neurologic: Positive: Weakness Psychiatric: No: Anxiety Hematologic/Lymphatic: No: Lymph Node Enlargement Physical Exam Narrative GENERAL: Thin elderly ill-appearing female in no respiratory SKIN: Warm and dry. HEAD: Normocephalic. EYES: No scleral icterus. No injection or drainage. NECK: Supple, trachea midline. No JVD or lymphadenopathy. CARDIOVASCULAR: Regular rate and rhythm without murmurs, gallops, or rubs. RESPIRATORY: Breath sounds equal bilaterally. No accessory muscle use. GASTROINTESTINAL: Abdomen soft, diffusely tender with voluntary guarding no rebound, soft mildly distended. MUSCULOSKELETAL: No cyanosis, or edema. BACK: Nontender without obvious deformity. No CVA tenderness. Data Data Last Documented VS Vital Signs Date Time Temp Pulse Resp B/P (MAP) Pulse Ox O2 Delivery O2 Flow Rate FiO2 11/17/17 01:38 102 18 129/59 (82) 100 Nasal Cannula 5.00 11/16/17 23:04 97.4 Orders Orders Complete Blood Count With Diff (11/16/17 23:) Comprehensive Metabolic Panel (11/16/17:) Lipase (11/16/17:) Lactic Acid (11/16/17:) Prothrombin Time / Inr (Pt) (11/16/17:) Act Partial Throm Time (Ptt) (11/16/17:) Urinalysis - C+S If Indicated (11/16/17:) Iv Access Insert/Monitor (11/16/17:) Ecg Monitoring (11/16/17:) Oximetry (11/16/17:) Ondansetron Inj (Zofran Inj) (11/16/17 23:30) Pantoprazole Inj (Protonix Inj) (11/16/17 23:30) Sodium Chlor 0.9% 1000 Ml Inj (Ns 1000 M (11/16/17 23:26) Sodium Chloride 0.9% Flush (Ns Flush) (11/16/17 23:30) Electrocardiogram (11/16/17:) Chest, Single Ap (11/16/17 23:) Piperacil-Tazo 4.5 Gm Premix (Zosyn 4.5 (11/16/17 23:30) Magnesium (Mg) (11/16/17 23:) Blood Culture (11/16/17:) Type And Screen (11/16/17 23:) Ct Abd/Pel W/O Iv Contrast (11/17/17 ) Sodium Chlor 0.9% 1000 Ml Inj (Ns 1000 M (11/17/17 00:45) Potassium Chloride (Kcl) (11/17/17 00:45) Cefepime Inj (Maxipime Inj) (11/17/17 02:00) Urinary Catheter Insert/Apply (11/17/17 01:46) Arterial Blood Gas (Abg) (11/17/17 ) Lactic Acid (11/17/17 01:46) Metronidazole 500 Mg Inj (Flagyl 500 Mg (11/17/17 02:30) Morphine Inj (Morphine Inj) (11/17/17 02:30) Ondansetron Inj (Zofran Inj) (11/17/17 02:30) Ng Gastric Tube Insert/Monitor (11/17/17 02:30) Place Ng Tube To Low Intermit (11/17/17 02:30) Sodium Bicarbonate 8.4% Inj (Sodium Bica (11/17/17 02:30) Potassium Chlor 10 Meq Premix (Kcl 10 Me (11/17/17 02:30) Admit Order (Ed Use Only) (11/17/17 ) Label Tacker / Telemetry [id number].[id number] (11/17/17 02:34) Diet Npo (11/17/17 Breakfast) Activity Bed Rest (11/17/17 02:34) Notify Dr: Other (11/17/17 02:34) Labs Laboratory Tests Test 11/16/17 23:42 11/17/17 02:02 11/17/17 02:10 11/17/17 02:30 White Blood Count 10.0 TH/MM3 Red Blood Count 3.15 MIL/MM3 Hemoglobin 12.6 GM/DL Hematocrit 38.4 % Mean Corpuscular Volume 122.1 FL Mean Corpuscular Hemoglobin 40.2 PG Mean Corpuscular Hemoglobin Concent 32.9 % Red Cell Distribution Width 16.4 % Platelet Count 59 TH/MM3 Mean Platelet Volume 8.1 FL Neutrophils (%) (Auto) 80.6 % Lymphocytes (%) (Auto) 12.9 % Monocytes (%) (Auto) 5.8 % Eosinophils (%) (Auto) 0.1 % Basophils (%) (Auto) 0.6 % Neutrophils # (Auto) 8.0 TH/MM3 Lymphocytes # (Auto) 1.3 TH/MM3 Monocytes # (Auto) 0.6 TH/MM3 Eosinophils # (Auto) 0.0 TH/MM3 Basophils # (Auto) 0.1 TH/MM3 CBC Comment AUTO DIFF Differential Total Cells Counted 100 Neutrophils % (Manual) 64 % Band Neutrophils % 14 % Lymphocytes % 16 % Monocytes % 5 % Neutrophils # (Manual) 7.9 TH/MM3 Metamyelocytes 1 % Differential Comment FINAL DIFF MANUAL Dohle Bodies PRESENT Platelet Estimate LOW Platelet Morphology Comment CLUMPED Prothrombin Time 13.7 SEC Prothromb Time International Ratio 1.4 RATIO Activated Partial Thromboplast Time 27.3 SEC Blood Urea Nitrogen 29 MG/DL Creatinine 2.10 MG/DL Random Glucose 138 MG/DL Total Protein 7.3 GM/DL Albumin 3.8 GM/DL Calcium Level 9.3 MG/DL Magnesium Level 2.7 MG/DL Alkaline Phosphatase 289 U/L Aspartate Amino Transf (AST/SGOT) 59 U/L Alanine Aminotransferase (ALT/SGPT) 15 U/L Total Bilirubin 0.9 MG/DL Sodium Level 139 MEQ/L Potassium Level 3.2 MEQ/L Chloride Level 104 MEQ/L Carbon Dioxide Level 22.3 MEQ/L Anion Gap 13 MEQ/L Estimat Glomerular Filtration Rate 23 ML/MIN Lactic Acid Level 6.8 mmol/L 5.1 mmol/L Lipase 108 U/L Urine Collection Type CLEAN CATCH Urine Color YELLOW Urine Turbidity CLEAR Urine pH 5.5 Urine Specific [place] 1.015 Urine Protein NEG mg/dL Urine Glucose (UA) NEG mg/dL Urine Ketones NEG mg/dL Urine Occult Blood NEG Urine Nitrite NEG Urine Bilirubin NEG Urine Urobilinogen 0.2 MG/DL Urine Leukocyte Esterase NEG Urine Squamous Epithelial Cells 0-5 /hpf Urine Amorphous Sediment FEW Urine Bacteria /hpf Urine Mucus FEW /lpf Microscopic Urinalysis Comment CULT NOT INDICATED Blood Gas Puncture Site RT RADIAL Blood Gas Patient Temperature 98.6 Blood Gas HCO3 16 mmol/L Blood Gas Base Excess -9.7 mmol/L Blood Gas Oxygen Saturation 96 % Arterial Blood pH 7.23 Arterial Blood Partial Pressure CO2 40 mmHG Arterial Blood Partial Pressure O2 135 mmHG Arterial Blood Oxygen Content 14.2 Vol % Arterial Blood Carboxyhemoglobin 1.4 % Arterial Blood Methemoglobin 1.5 % Blood Gas Hemoglobin 10.3 G/DL Oxygen Delivery Device NASAL CANNULA Blood Gas Liter Flow 4.5 L/M MDM Medical Decision Making Medical Screen Exam Complete: Yes Emergency Medical Condition: Yes Medical Record Reviewed: Yes Interpretation(s) CT abd/pel: CONCLUSION: 1. Distended stomach. 2. Fluid distended colon without dilated loops of small bowel. Víctor Bates MD on November 17, 2017 at 2:03 Board Certified Radiologist. This report was verified electronically. Differential Diagnosis Abdominal pain, bowel obstruction, perforation, diverticulitis, pancreatitis, cholecystitis, gastritis, gi bleed, appendicitis, colitis, sepsis Narrative Course IV access obtained specimens collected and sent for resulting patient given fluid bolus Lactic acid 6.[address] additional IV antibiotics [address] CT abdomen and pelvis ordered but change from with contrast without contrast due to acute kidney injury Flagyl 500 mg IV piggyback administer Patient with metabolic acidosis pH 7.23 PCO2 40 with PO2 of 135 on 4.5 L/min nasal cannula bicarb is 16 with base excess -9.7 O2 sat 96% Patient case discussed with surgical garment fitter Critical Care Narrative Aggregate critical care time was 35 minutes. Time to perform other separately billable procedures was not included in the critical care time. My time did not include minutes spent treating any other patients simultaneously or on activities that did not directly contribute to the patient's treatment. The services I provided to this patient were to treat and/or prevent clinically significant deterioration that could result in: Arrhythmia septic shock I provided critical care services requiring my management, as noted below: Chart data review, documentation time, medication orders and management, vital sign assessments/reviewing monitor data, ordering and reviewing lab tests, ordering and interpreting/reviewing x-rays and diagnostic studies, care of the patient and discussion of the patient with the admitting physicians. Physician Communication Physician Communication discussed with surgical garment fitter Dr Nichols --admit to ICU [facility] or transfer ED to ED Diagnosis Primary Impression: Sepsis Qualified Codes: A41.9 - Sepsis, unspecified organism Additional Impressions: Lactic acidosis NISHANT (acute kidney injury) History of idiopathic thrombocytopenic purpura COPD (chronic obstructive pulmonary disease) Admitting Information Admitting Physician Requests: Admit Krystyna Scherer MD Nov 17, 2017 02:29
[2017-11-17 02:30] LABS: MUCUS URINE FEW /lpf (OCC)
[2017-11-17] MEDS ORDERED: metroNIDAZOLE 500 MG INJ 100 ML IV ONE (02:30)
[2017-11-17] MEDS ORDERED: POTASSIUM CHLOR 10 MEQ PREMIX 100 ML IV ONE (02:30)
[2017-11-17] MEDS ORDERED: SODIUM BICARBONATE 8.4% INJ 50 MEQ/50 ML SYR IV PUSH ONE (02:30)
[2017-11-17] MEDS ORDERED: MORPHINE SULFATE 2 MG/ML SYRINGE IV PUSH ONE ×2 (02:30→04:00)
[2017-11-17] MEDS ORDERED: ONDANSETRON HCL 4 MG/2 ML VIAL IV PUSH ONE (02:30)
[2017-11-17 02:31] LABS: SQUAMOUS EPITHELIAL CELL URINE 0-5 /hpf (0-5)
[2017-11-17 02:32] LABS: AMORPHOUS SEDIMENT, URINE FEW
[2017-11-17] MEDS ORDERED: SODIUM BICARBONATE 8.4% SOLN 50 MEQ/50 ML VIAL IV PUSH ONE (03:00)
[2017-11-17] MEDS ORDERED: VANCOMYCIN INJ 1,000 MG in SODIUM CHLOR 0.9% 250 ML INJ 250 ML IV STA (03:30)
[2017-11-17] MEDS ORDERED: SODIUM CHLOR 0.9% 1000 ML INJ 1,000 ML IV SCH (03:30)
[2017-11-17] MEDS ORDERED: SODIUM CHLORID 0.9% 500 ML INJ 500 ML IV ONE (03:30)
[2017-11-17] MEDS ORDERED: XARE20TA PO (03:56)
[2017-11-17] MEDS ORDERED: BISACODYL 10 MG SUPP RECTAL PRN (06:45)
[2017-11-17] MEDS ORDERED: ONDANSETRON HCL 4 MG/2 ML VIAL IV PUSH PRN (06:45)
[2017-11-17] MEDS ORDERED: LACTULOSE SYRUP 20 GM/30 ML CUP PO PRN (06:45)
[2017-11-17] MEDS ORDERED: SENNOSIDES 8.6 MG TAB PO PRN (06:45)
[2017-11-17] MEDS ORDERED: MORPHINE SULFATE 2 MG/ML SYRINGE IV SCH (06:45)
[2017-11-17] MEDS ORDERED: CHLORHEXIDINE GLUCONATE 2 % 1 PACK (2 CLOTHS) TOP PRN (06:45)
[2017-11-17] MEDS ORDERED: MAGNESIUM HYDROXIDE SUSP 30 ML CUP PO PRN (06:45)
[2017-11-17] MEDS ORDERED: MISCELLANEOUS NURSING INFORMATION XX SCH (06:45)
[2017-11-17] MEDS ORDERED: HYDROmorphone HCL PF 1 MG/ML VIAL IV PUSH PRN (07:00)
--- NOTE | 2017-11-17 07:23 | HHI.HP ---
[facility] Service Critical Care Medicine Primary Care Physician Non-Staff Admission Diagnosis sepsis; lactic acidosis; NISHANT; h/o ITP Diagnosis: Travel History International Travel<30 Days: No Contact w/Intl Traveler <30 Da: No Traveled to Known Affected Are: No History of Present Illness This is a 67-year-old female that presented to [facility], by private transportation for evaluation of severe abdominal pain. Patient states of the past week she has had constipation so last evening took laxatives ( Senokot) x 3 days, and then today had large bowel movement multiple times with development of severe lower abdominal pain. Patient had subsequently noted some abdominal distention. Patient states her abdomen is exquisitely tender with any movement. Patient also complains of some epigastric pain. 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 No report of hematemesis or coffee-ground emesis. Patient states after bowel movements no report of melena or hematochezia. Patient rates her abdominal pain 10/10 in intensity, without relief of narcotics. The patient was transferred to [facility] , critical care medicine was consulted. History PFSH Past Medical History Narrative Medical Anemia arthritis asthma chronic ITP splenectomy bone marrow biopsy Nplate therapy COPD hypertension tubal ligation; nursing notes reviewed Hx Anticoagulant Therapy: No Anemia: Yes Arthritis: Yes Asthma: Yes Autoimmune Disease: Yes (ITP) Anxiety: No Depression: No Heart Rhythm Problems: No Cancer: No Cardiovascular Problems: Yes High Cholesterol: No Chest Pain: No Congestive Heart Failure: No COPD: Yes Diabetes: No Endocrine: No Gastrointestinal Disorders: No Genitourinary: No Hepatitis: No Hiatal Hernia: No Hypertension: Yes (HTN R/T PAIN, HYPOTENSION ISSUE IN PAST) Immune Disorder: No Kidney Stones: No Musculoskeletal: Yes Neurologic: No Psychiatric: No Reproductive: No Respiratory: Yes Renal Failure: No Sickle Cell Disease: No Sleep Apnea: No Thyroid Disease: No ?: Not Tubal Ligation: Yes Past Surgical History Abdominal Surgery: Yes (splenectomy) AICD: No Cardiac Surgery: No Section: Yes (x1) Ear Surgery: No Endocrine Surgery: No Eye Surgery: Yes (right eye implant cataract surgery) Genitourinary Surgery: No Gynecologic Surgery: Yes (C section/ tubal ligation) Joint Replacement: Yes (right hip) Oral Surgery: Yes (T&A) Pacemaker: No Thoracic Surgery: No Tonsillectomy: Yes Social History Alcohol Use: Yes (ocass mix drinks) Tobacco Use: No (quit 2 yrs smoked 1 ppd) Substance Use: No Allergies-Medications Allergies-Medications (Allergen,Severity, Reaction): Coded Allergies: Sulfa (Sulfonamide Antibiotics) (Verified Allergy, Severe, Hives, 11/16/17) ciprofloxacin (Verified Allergy, Severe, Hives, 11/16/17) Reported Meds & Prescriptions Reported Meds & Active Scripts Active Pradaxa (Dabigatran) 150 Mg Cap 150 Mg PO BID Hydrocodone-Acetaminophen 5-325 mg Tab 1 Tab PO Q4H PRN Reported Albuterol Neb (Albuterol Sulfate) 2.5 Mg/3 Ml Neb 2.5 Mg NEB Q4HR NEB PRN Budesonide Neb 0.25 Mg/2 Ml Neb 0.25 Mg NEB DAILY NEB Ventolin Hfa 18 GM Inh (Albuterol Sulfate) 90 Mcg/Act Aer 2 Puff INH Q4-6H PRN Spiriva Handihaler (Tiotropium Inh) 18 Mcg Cap 18 Mcg INH DAILY 1 capsule = 18 mcg Montelukast (Montelukast Sodium) 10 Mg Tab 10 Mg PO DAILY Flexeril (Cyclobenzaprine HCl) 10 Mg Tab 20 Mg PO BID Lisinopril 20 Mg Tab 20 Mg PO DAILY Perforomist Neb (Formoterol Fumarate) 20 Mcg/2 Ml Neb 1 Nebule INH BID ROS Review of Systems Except as stated in HPI: all other systems reviewed are Neg General / Constitutional: No: Fever, Chills HENT: No: Congestion Cardiovascular: No: Chest Pain or Discomfort Respiratory: No: Shortness of Breath Gastrointestinal: Positive: Nausea, Abdominal Pain, Constipation, No: Hematemesis, Hematochezia Genitourinary: No: Dysuria, Hematuria, Flank Pain Musculoskeletal: No: Myalgias, Arthralgias Skin: No Rash Neurologic: Positive: Weakness Psychiatric: No: Anxiety Hematologic/Lymphatic: No: Lymph Node Enlargement Physical Exam Vital Signs Vital Signs Date Time Temp Pulse Resp B/P (MAP) Pulse Ox O2 Delivery O2 Flow Rate FiO2 11/17/17 05:19 108 18 96 Nasal Cannula 3.00 11/17/17 04:42 18 11/17/17 04:22 97.2 105 18 125/79 (94) 98 Nasal Cannula 3.00 11/17/17 03:18 111 18 114/49 (70) 95 Nasal Cannula 3.00 11/17/17 01:38 102 18 129/59 (82) 100 Nasal Cannula 5.00 11/17/17 00:36 103 18 103/40 (61) 98 Nasal Cannula 3.00 11/17/17 00:07 99 16 116/51 (72) 94 Nasal Cannula 3.00 11/16/17 23:55 97 Nasal Cannula 3.00 11/16/17 23:26 16 11/16/17 23:24 104 18 90/72 (78) 11/16/17 23:04 97.4 105 70/49 (56) 95 Physical Exam GENERAL: This is a pale thin female writhing in bed, secondary to abdominal pain SKIN: Warm and dry. Pale HEAD: Atraumatic. Normocephalic. EYES: Pupils equal and round. No scleral icterus. No injection or drainage. ENT: No nasal bleeding or discharge. Mucous membranes pink and moist. NG tube to LIWS NECK: Trachea midline. No JVD. CARDIOVASCULAR: Normal rate, regular rhythm. RESPIRATORY: No accessory muscle use. Clear to auscultation. Breath sounds equal bilaterally.Nasal Cannula 3 L/m GASTROINTESTINAL: Abdomen soft, non-tender, nondistended. No guarding. MUSCULOSKELETAL: Extremities without clubbing, cyanosis, or edema. No obvious deformities. NEUROLOGICAL: Awake and alert. RASS 0. No gross focal/sensory deficits. Follows commands in all 4 extremities. Laboratory Laboratory Tests Test 11/16/17 23:42 11/17/17 02:02 11/17/17 02:10 11/17/17 02:30 White Blood Count 10.0 Red Blood Count 3.15 Hemoglobin 12.6 Hematocrit 38.4 Mean Corpuscular Volume 122.1 Mean Corpuscular Hemoglobin 40.2 Mean Corpuscular Hemoglobin Concent 32.9 Red Cell Distribution Width 16.4 Platelet Count 59 Mean Platelet Volume 8.1 Neutrophils (%) (Auto) 80.6 Lymphocytes (%) (Auto) 12.9 Monocytes (%) (Auto) 5.8 Eosinophils (%) (Auto) 0.1 Basophils (%) (Auto) 0.6 Neutrophils # (Auto) 8.0 Lymphocytes # (Auto) 1.3 Monocytes # (Auto) 0.6 Eosinophils # (Auto) 0.0 Basophils # (Auto) 0.1 CBC Comment AUTO DIFF Differential Total Cells Counted 100 Neutrophils % (Manual) 64 Band Neutrophils % 14 Lymphocytes % 16 Monocytes % 5 Neutrophils # (Manual) 7.9 Metamyelocytes 1 Differential Comment FINAL DIFF MANUAL Dohle Bodies PRESENT Platelet Estimate LOW Platelet Morphology Comment CLUMPED Prothrombin Time 13.7 Prothromb Time International Ratio 1.4 Activated Partial Thromboplast Time 27.3 Blood Urea Nitrogen 29 Creatinine 2.10 Random Glucose 138 Total Protein 7.3 Albumin 3.8 Calcium Level 9.3 Magnesium Level 2.7 Alkaline Phosphatase 289 Aspartate Amino Transf (AST/SGOT) 59 Alanine Aminotransferase (ALT/SGPT) 15 Total Bilirubin 0.9 Sodium Level 139 Potassium Level 3.2 Chloride Level 104 Carbon Dioxide Level 22.3 Anion Gap 13 Estimat Glomerular Filtration Rate 23 Lactic Acid Level 6.8 5.1 Lipase 108 Urine Collection Type CLEAN CATCH Urine Color YELLOW Urine Turbidity CLEAR Urine pH 5.5 Urine Specific [place] 1.015 Urine Protein NEG Urine Glucose (UA) NEG Urine Ketones NEG Urine Occult Blood NEG Urine Nitrite NEG Urine Bilirubin NEG Urine Urobilinogen 0.2 Urine Leukocyte Esterase NEG Urine Squamous Epithelial Cells 0-5 Urine Amorphous Sediment FEW Urine Bacteria Urine Mucus FEW Microscopic Urinalysis Comment CULT NOT INDICATED Blood Gas Puncture Site RT RADIAL Blood Gas Patient Temperature 98.6 Blood Gas HCO3 16 Blood Gas Base Excess -9.7 Blood Gas Oxygen Saturation 96 Arterial Blood pH 7.23 Arterial Blood Partial Pressure CO2 40 Arterial Blood Partial Pressure O2 135 Arterial Blood Oxygen Content 14.2 Arterial Blood Carboxyhemoglobin 1.4 Arterial Blood Methemoglobin 1.5 Blood Gas Hemoglobin 10.3 Oxygen Delivery Device NASAL CANNULA Blood Gas Liter Flow 4.5 Date/Time Source Procedure Growth Status 11/16/17 23:45 Blood Peripheral Aerobic Blood Culture Pending Received 11/16/17 23:45 Blood Peripheral Anaerobic Blood Culture Pending Received Result Diagram: 11/16/17 2342 11/16/17 2342 Imaging Last Impressions Abdomen/Pelvis CT 11/17/17 0000 Signed Impressions: Service Date/Time: Friday, November 17, 2017 01:08 - CONCLUSION: 1. Distended stomach. 2. Fluid distended colon without dilated loops of small bowel. Víctor Bates MD Chest X-Ray 11/16/17 [id number] Signed Impressions: Service Date/Time: Thursday, November 16, 2017 23:51 - CONCLUSION: Hyperaerated lungs. No infiltrates seen. Víctor Bates MD Septic Shock Reassessment Septic shock perfusion: reassessment completed Caprini VTE Risk Assessment Caprini VTE Risk Assessment: Mod/High Risk (score >= 2) Caprini Risk Assessment Model Point Value = 1 Point Value = 2 Point Value = 3 Point Value = 5 Age 41-60 Minor surgery BMI > 25 kg/m2 Swollen legs Varicose veins or History of unexplained or recurrent spontaneous Oral contraceptives or hormone replacement Sepsis (< 1 month) Serious lung disease, including pneumonia (< 1 month) Abnormal pulmonary function Acute myocardial infarction Congestive heart failure (< 1 month) History of inflammatory bowel disease Medical patient at bed rest Age 61-74 Arthroscopic surgery Major open surgery (> 45 min) Laparoscopic surgery (> 45 min) Malignancy Confined to bed (> 72 hours) Immobilizing plaster cast Central venous access Age >= 75 History of VTE Family history of VTE Factor V Leiden Prothrombin [id number] Lupus anticoagulant Anticardiolipin antibodies Elevated serum homocysteine Heparin-induced thrombocytopenia Other congenital or acquired thrombophilia Stroke (< 1 month) Elective arthroplasty Hip, pelvis, or leg fracture Acute spinal cord injury (< 1 month) Prophylaxis Regimen Total Risk Factor Score Risk Level Prophylaxis Regimen 0-1 Low Early ambulation 2 Moderate Order ONE of the following: *Sequential Compression Device (SCD) *Heparin 5000 units SQ BID 3-4 Higher Order ONE of the following medications: *Heparin 5000 units SQ TID *Enoxaparin/Lovenox 40 mg SQ daily (WT < 150 kg, CrCl > 30 mL/min) *Enoxaparin/Lovenox 30 mg SQ daily (WT < 150 kg, CrCl > 10-29 mL/min) *Enoxaparin/Lovenox 30 mg SQ BID (WT < 150 kg, CrCl > 30 mL/min) AND/OR *Sequential Compression Device (SCD) 5 or more Highest Order ONE of the following medications: *Heparin 5000 units SQ TID (Preferred with Epidurals) *Enoxaparin/Lovenox 40 mg SQ daily (WT < 150 kg, CrCl > 30 mL/min) *Enoxaparin/Lovenox 30 mg SQ daily (WT < 150 kg, CrCl > 10-29 mL/min) *Enoxaparin/Lovenox 30 mg SQ BID (WT < 150 kg, CrCl > 30 mL/min) AND *Sequential Compression Device (SCD) Assessment and Plan Problem List: (1) Chronic anemia ICD Code: D64.9 - Anemia, unspecified Status: Acute (2) Idiopathic thrombocytopenia purpura ICD Code: D69.3 - Immune thrombocytopenic purpura Status: Acute (3) COPD (chronic obstructive pulmonary disease) ICD Code: J44.9 - Chronic obstructive pulmonary disease, unspecified Status: Acute (4) NISHANT (acute kidney injury) ICD Code: N17.9 - Acute kidney failure, unspecified Status: Acute (5) Chronic back pain ICD Code: M54.9 - Dorsalgia, unspecified; G89.29 - Other chronic pain Status: Acute (6) Hypertension ICD Code: I10 - Essential (primary) hypertension Status: Acute (7) Acute and chronic respiratory failure with hypoxia ICD Code: J96.21 - Acute and chronic respiratory failure with hypoxia Status: Acute (8) Abdominal pain ICD Code: R10.9 - Unspecified abdominal pain Assessment and Plan Assessment This is a 67-year-old female, with severe abdominal pain, noted air-fluid levels on CT. Differential includes ileus, small bowel obstruction, infection. A chin is medical history significant for multiple comorbidities to include COPD with O2 home dependency, ITP, and a history of DVT. Admit to ICU. Plan Plan by systems: Neurologic: Abdominal pain Chronic back pain 2/2 impression fractures Neurochecks per ICU protocol Dilaudid 1 mg every 4 hours when necessary for breakthrough pain scale 7-10 Ofirmev 1 g every 6 hours 2 days Tylenol 650 mg every 6 hours when necessary for pain or temperature greater than 100.5 Patient on home dose [place] for pain control will hold for now Respiratory: COPD Asthma Home O2 dependency Maintain O2 saturation greater than 92% FiO2 at 3 L/m nasal cannula, home O2 dependency Duo nebs every 4 hours when necessary for wheezing Continue inhalers formoterol, albuterol,Spiriva and budesonide- home medications Cardiovascular: Hypertension Maintain MAP greater than 65mmHg Hold patient's by mouth dosing of lisinopril Provide labetalol and hydralazine when necessary for SBP > 160 Renal: AK I Maintain [place] -- Strict I/Os FEN/GI: Electrolyte derangement Possible ileus Possible SBO Abdominal pain Maintain NPO status NGT to LIWS Patient bolused with 2L NSS Continue IVF NS @ 125cc/hr GI consulted- discussed with Dr. Howell 11/16 CT scan abdomen/ pelvis Gen. surgery consulted-discussed case with Charu 11/16 CT abdomen and pelvis- Distended stomach. Fluid distended colon without dilated loops of small bowel. Place rectal tube Bowel Regimen Heme/ID: History of DVT 09/2017 Chronic ITP Hematology consulted Platelet count normally 40-70,000 platelet count 59,000 Patient had left popliteal embolectomy 09/2017, Dr. Mixon and was placed on Pradaxa, patient under the care of rn office Dr. Reyna. Patient takes Xarelto 20mg/d Endocrine: Hyperglycemia of critical illness Glucose monitoring per ICU [id number] regimen -- SSI Prophylaxis: GI Prophylaxis Famotidine BID DVT Prophylaxis -- SCDs Patient's home med include Xarelto, will hold for now, await imaging studies/ and possible procedures Lines: Peripheral IVs 2. Central line if indicated Dispo: my billing statement This patient remains critically ill with one or more organ systems which are or may become a threat to life. I have spent in excess of 60 minutes discontinuously in the care and management of this patient. This time is exclusive of procedures, and includes, but is not limited to, evaluation of the patient, review of the medical record, discussions with family, consultants, nursing staff, or respiratory therapy, and documentation in the medical record. Code Status Full Discussed Condition With Dr Howell, Dr. Box and CHANNEL ACCOUNT MANAGER at bedside Glenis Flores MD Nov 17, 2017 07:23
[2017-11-17] MEDS ORDERED: Vancomycin Consult Pharmacy 1 EA OTHER SCH (07:45)
[2017-11-17 07:46] LABS: AUTOMATED NEUTROPHIL # 4.9 TH/MM3 (1.8-7.7); BASOPHIL % 0.1 % (0.0-2.0); HEMATOCRIT 29.6 % (35.0-46.0); HEMOGLOBIN 9.8 GM/DL (11.6-15.3); LYMPH % 21.6 % (9.0-44.0); LYMPHOCYTE # 1.5 TH/MM3 (1.0-4.8); MEAN CELL VOLUME 125.4 FL (80.0-100.0); MEAN CORPUSCULAR HEMOGLOBIN 41.4 PG (27.0-34.0); MEAN PLATELET VOLUME 9.9 FL (7.0-11.0); MONO % 6.3 % (0.0-8.0); MONOCYTE # 0.4 TH/MM3 (0-0.9); PLATELET COUNT 67 TH/MM3 (150-450); RED BLOOD COUNT 2.36 MIL/MM3 (4.00-5.30); RED CELL DISTRIBUTION WIDTH 14.8 % (11.6-17.2); WHITE BLOOD COUNT 6.8 TH/MM3 (4.0-11.0)
[2017-11-17 07:54] LABS: INTERNATIONAL NORMALIZED RATIO 1.2 RATIO; PROTHROMBIN TIME - PATIENT 12.6 SEC (9.8-11.6)
[2017-11-17] MEDS: RESP: BUDESONIDE 0.25 MG/2 ML NEB NEB SCH (08:00)
--- NOTE | 2017-11-17 08:05 | RADRPT ---
EXAM DATE/TIME: 11/17/2017 07:37 [facility] COMPARISON: No previous studies available for comparison. INDICATIONS : Pain in lower abdomen. MEDICAL HISTORY : Hypertension. Chronic obstructive pulmonary disease. Asthma. SURGICAL HISTORY : None. ENCOUNTER: Subsequent ACUITY: 3 days PAIN SCORE: 9/10 LOCATION: Bilateral Abdomen FINDINGS: There is a normal bowel gas pattern without obstruction or ileus. No free intraperitoneal air is note d. No radiopaque densities resembling urinary calculi are noted. Degenerative changes are noted throu ghout the lumbar and lower thoracic spine. Right hip replacement is noted. CONCLUSION: No bowel obstruction, ileus or perforation. Swapnil Saldaña MD on November 17, 2017 at 8:02 Board Certified Radiologist. This report was verified electronically.
[2017-11-17 08:13] LABS: TOTAL BILIRUBIN ADULT 0.6 MG/DL (0.2-1.0); TOTAL PROTEIN 5.5 GM/DL (6.4-8.2)
[2017-11-17 08:26] LABS: BANDS 41 % (0-6); LYMPHOCYTES 20 % (9-44); METAMYELOCYTES 6 % (0-1); MONOCYTES 2 % (0-8); MYELOCYTES 2 % (0-0); NEUTROPHIL # MANUAL DIFF 5.3 TH/MM3 (1.8-7.7); OVALOCYTES 1+ (NORMAL); POLYS (SEG NEUTROPHILS) 29 % (16-70)
[2017-11-17 08:27] LABS: HOWELL-JOLLY BODIES PRESENT (NONE SEEN); TOXIC VACUOLATION PRESENT (NONE SEEN)
[2017-11-17] MEDS: ACETAMINOPHEN 1000 MG/100 ML 100 ML IV SCH ×3 (08:28→21:10)
[2017-11-17] MEDS: SODIUM CHLORIDE 0.9% FLUSH 10 ML FLUSH IV FLUSH SCH ×2 (08:28→21:10)
[2017-11-17] MEDS: DOCUSATE SODIUM 50 MG/SENNA 8.6 MG TAB PO SCH ×2 (08:29→21:11)
[2017-11-17] MEDS: SODIUM CHLORIDE 0.9% FLUSH 10 ML FLUSH IV FLUSH PRN (08:29)
[2017-11-17] MEDS: FAMOTIDINE 20 MG/2 ML VIAL IV PUSH SCH ×2 (08:29→21:11)
[2017-11-17] MEDS: HYDROmorphone HCL PF 2 MG/ML VIAL IV PUSH PRN ×3 (08:30→21:11)
[2017-11-17] MEDS: TIOTROPIUM BROMIDE 18 MCG INH INH SCH (09:00)
[2017-11-17] MEDS ORDERED: CEFEPIME INJ 2,000 MG in SODIUM CHLORIDE 0.9% INJ 100 ML IV SCH ×2 (09:00→15:00)
[2017-11-17] MEDS ORDERED: NON-FORMULARY DRUG (Formoterol Neb (Perforomist Neb) 1 NEBULE) INH SCH (09:00)
[2017-11-17] MEDS: SODIUM CHLOR 0.9% 1000 ML INJ 1,000 ML IV SCH ×3 (09:00→22:40)
--- NOTE | 2017-11-17 09:25 | RADRPT ---
EXAM DATE/TIME: 11/17/2017 08:01 [facility] COMPARISON: CTA RUNOFF W 3D RECON, September 03, 2017, 15:24. CT ABDOMEN & PELVIS W/O CONTRAST, November 17, 2017, 1: 08. INDICATIONS : Abdominal pain. Mesenteric ischemia. MEDICAL HISTORY : Hypertension. Chronic obstructive pulmonary disease. Arthritis. Anemia. SURGICAL HISTORY : Tonsillectomy. Splenectomy. section. Rigth eye surgery. Tubal tubal ligation. Right hip surg christian. ENCOUNTER: Initial ACUITY: 1 day PAIN SCORE: 0/10 LOCATION: Abdomen. AORTA: SAGITTAL PROXIMAL: 106 cm/sec SAGITTAL MID: 56 cm/sec SAGITTAL DISTAL: 89 cm/sec CELIAC ARTERY: CA ORIGIN: 101 cm/sec CA PROXIMAL: 146 cm/sec CA MID: 156 cm/sec CA DISTAL: 121 cm/sec HEPATIC ARTERY: 145 cm/sec SPLENIC ARTERY: 130 cm/sec SUPERIOR MESENTERIC ARTERY: SMA PROXIMAL: 159 cm/sec SMA MID: 136 cm/sec SMA DISTAL: 199 cm/sec FINDINGS: Celiac and SMA appear patent on this the vascu study. On the CTA of the abdomen and runoff dated 09/03/17 both vessels are widely patent. CONCLUSION: Negative for occlusion or significant stenosis. Luis A Castillo MD FACR on November 17, 2017 at 9:19 Board Certified Radiologist. This report was verified electronically.
--- NOTE | 2017-11-17 10:29 | PD.CONS ---
HPI History of Present Illness This is a 67 year old female with hx ITP, s/p splenectomy who presented wit abd pain, recent onset. Pt is unable to tell me exactly when it started but says it is new. Pain in lower abd area. She had a BM yesterday that was formed and then became soft. No blood in stool, no n/v. She persaud a colonoscopy about 5 y ago in [place] and says it was normal CT showed distended stomach, fluid distended but nondilated loops small bowel. US negative for occlusion or significant stenosis mesenteric arteries. KUB showed no obstruction. Pt is limited historian. (Karime Montano) PFSH Past Medical History ITP COPD HTN asthma Past Surgical History bone marrow bx right hip replacement c section tubal ligation (Karime Montano) Coded Allergies: Sulfa (Sulfonamide Antibiotics) (Verified Allergy, Severe, Hives, 11/16/17) ciprofloxacin (Verified Allergy, Severe, Hives, 11/16/17) Family History alcoholism Social History former heavy drinker former heavy smoke cannot tell me when she quit (Karime Montano) Review of Systems Constitutional: DENIES: Weight loss Endocrine: DENIES: Polydipsia Eyes: DENIES: Blurred vision Ears, nose, mouth, throat: DENIES: Hearing loss Respiratory: DENIES: Hemoptysis Cardiovascular: DENIES: Chest pain Gastrointestinal: COMPLAINS OF: Abdominal pain, DENIES: Black stools, Bloody stools, Constipation, Diarrhea, Nausea, Vomiting Musculoskeletal: DENIES: Muscle aches Integumentary: DENIES: Rash Hematologic/lymphatic: COMPLAINS OF: Bruising Immunologic/allergic: DENIES: Eczema Neurologic: DENIES: Headache Psychiatric: DENIES: Confusion (Karime Montano) GI Exam Vitals I&O Vital Signs Date Time Temp Pulse Resp B/P (MAP) Pulse Ox O2 Delivery O2 Flow Rate FiO2 11/17/17 07:39 97 Nasal Cannula 3.00 11/17/17 06:48 99.0 110 20 145/95 (112) 96 11/17/17 05:19 108 18 96 Nasal Cannula 3.00 11/17/17 04:42 18 11/17/17 04:22 97.2 105 18 125/79 (94) 98 Nasal Cannula 3.00 11/17/17 03:18 111 18 114/49 (70) 95 Nasal Cannula 3.00 11/17/17 01:38 102 18 129/59 (82) 100 Nasal Cannula 5.00 11/17/17 00:36 103 18 103/40 (61) 98 Nasal Cannula 3.00 11/17/17 00:07 99 16 116/51 (72) 94 Nasal Cannula 3.00 11/16/17 23:55 97 Nasal Cannula 3.00 11/16/17 23:26 16 11/16/17 23:24 104 18 90/72 (78) 11/16/17 23:04 97.4 105 70/49 (56) 95 I/O 11/16/17 11/16/17 11/16/17 11/17/17 11/17/17 11/17/17 07:00 15:00 23:00 07:00 15:00 23:00 Intake Total 3840 ml Output Total 200 ml Balance 3640 ml Intake IV Total 3840 ml Output Urine Total 200 ml # Voids 1 Imaging Last Impressions Abdomen/Pelvis CT 11/17/17 0000 Signed Impressions: Service Date/Time: Friday, November 17, 2017 01:08 - CONCLUSION: 1. Distended stomach. 2. Fluid distended colon without dilated loops of small bowel. Víctor Bates MD Abdomen X-Ray 11/17/17 0000 Signed Impressions: Service Date/Time: Friday, November 17, 2017 07:37 - CONCLUSION: No bowel obstruction, ileus or perforation. Swapnil Saldaña MD Abdomen Ultrasound 11/17/17 0000 Signed Impressions: Service Date/Time: Friday, November 17, 2017 08:01 - CONCLUSION: Negative for occlusion or significant stenosis. Luis A Castillo MD FACR Chest X-Ray 11/16/17 [id number] Signed Impressions: Service Date/Time: Thursday, November 16, 2017 23:51 - CONCLUSION: Hyperaerated lungs. No infiltrates seen. Víctor Bates MD Laboratory Test 11/16/17 23:42 11/17/17 02:02 11/17/17 02:10 11/17/17 02:30 White Blood Count 10.0 TH/MM3 Red Blood Count 3.15 MIL/MM3 Hemoglobin 12.6 GM/DL Hematocrit 38.4 % Mean Corpuscular Volume 122.1 FL Mean Corpuscular Hemoglobin 40.2 PG Mean Corpuscular Hemoglobin Concent 32.9 % Red Cell Distribution Width 16.4 % Platelet Count 59 TH/MM3 Mean Platelet Volume 8.1 FL Neutrophils (%) (Auto) 80.6 % Lymphocytes (%) (Auto) 12.9 % Monocytes (%) (Auto) 5.8 % Eosinophils (%) (Auto) 0.1 % Basophils (%) (Auto) 0.6 % Neutrophils # (Auto) 8.0 TH/MM3 Lymphocytes # (Auto) 1.3 TH/MM3 Monocytes # (Auto) 0.6 TH/MM3 Eosinophils # (Auto) 0.0 TH/MM3 Basophils # (Auto) 0.1 TH/MM3 CBC Comment AUTO DIFF Differential Total Cells Counted 100 Neutrophils % (Manual) 64 % Band Neutrophils % 14 % Lymphocytes % 16 % Monocytes % 5 % Neutrophils # (Manual) 7.9 TH/MM3 Metamyelocytes 1 % Differential Comment FINAL DIFF MANUAL Dohle Bodies PRESENT Platelet Estimate LOW Platelet Morphology Comment CLUMPED Prothrombin Time 13.7 SEC Prothromb Time International Ratio 1.4 RATIO Activated Partial Thromboplast Time 27.3 SEC Blood Urea Nitrogen 29 MG/DL Creatinine 2.10 MG/DL Random Glucose 138 MG/DL Total Protein 7.3 GM/DL Albumin 3.8 GM/DL Calcium Level 9.3 MG/DL Magnesium Level 2.7 MG/DL Alkaline Phosphatase 289 U/L Aspartate Amino Transf (AST/SGOT) 59 U/L Alanine Aminotransferase (ALT/SGPT) 15 U/L Total Bilirubin 0.9 MG/DL Sodium Level 139 MEQ/L Potassium Level 3.2 MEQ/L Chloride Level 104 MEQ/L Carbon Dioxide Level 22.3 MEQ/L Anion Gap 13 MEQ/L Estimat Glomerular Filtration Rate 23 ML/MIN Lactic Acid Level 6.8 mmol/L 5.1 mmol/L Lipase 108 U/L Urine Collection Type CLEAN CATCH Urine Color YELLOW Urine Turbidity CLEAR Urine pH 5.5 Urine Specific [place] 1.015 Urine Protein NEG mg/dL Urine Glucose (UA) NEG mg/dL Urine Ketones NEG mg/dL Urine Occult Blood NEG Urine Nitrite NEG Urine Bilirubin NEG Urine Urobilinogen 0.2 MG/DL Urine Leukocyte Esterase NEG Urine Squamous Epithelial Cells 0-5 /hpf Urine Amorphous Sediment FEW Urine Bacteria /hpf Urine Mucus FEW /lpf Microscopic Urinalysis Comment CULT NOT INDICATED Blood Gas Puncture Site RT RADIAL Blood Gas Patient Temperature 98.6 Blood Gas HCO3 16 mmol/L Blood Gas Base Excess -9.7 mmol/L Blood Gas Oxygen Saturation 96 % Arterial Blood pH 7.23 Arterial Blood Partial Pressure CO2 40 mmHG Arterial Blood Partial Pressure O2 135 mmHG Arterial Blood Oxygen Content 14.2 Vol % Arterial Blood Carboxyhemoglobin 1.4 % Arterial Blood Methemoglobin 1.5 % Blood Gas Hemoglobin 10.3 G/DL Oxygen Delivery Device NASAL CANNULA Blood Gas Liter Flow 4.5 L/M Test 11/17/17 06:00 11/17/17 07:28 11/17/17 07:29 White Blood Count 6.8 TH/MM3 Red Blood Count 2.36 MIL/MM3 Hemoglobin 9.8 GM/DL Hematocrit 29.6 % Mean Corpuscular Volume 125.4 FL Mean Corpuscular Hemoglobin 41.4 PG Mean Corpuscular Hemoglobin Concent 33.0 % Red Cell Distribution Width 14.8 % Platelet Count 67 TH/MM3 Mean Platelet Volume 9.9 FL Neutrophils (%) (Auto) 72.0 % Lymphocytes (%) (Auto) 21.6 % Monocytes (%) (Auto) 6.3 % Eosinophils (%) (Auto) 0.0 % Basophils (%) (Auto) 0.1 % Neutrophils # (Auto) 4.9 TH/MM3 Lymphocytes # (Auto) 1.5 TH/MM3 Monocytes # (Auto) 0.4 TH/MM3 Eosinophils # (Auto) 0.0 TH/MM3 Basophils # (Auto) 0.0 TH/MM3 CBC Comment AUTO DIFF Differential Total Cells Counted 100 Neutrophils % (Manual) 29 % Band Neutrophils % 41 % Lymphocytes % 20 % Monocytes % 2 % Neutrophils # (Manual) 5.3 TH/MM3 Metamyelocytes 6 % Myelocytes 2 % Differential Comment FINAL DIFF MANUAL Toxic Vacuolation PRESENT Platelet Estimate LOW Platelet Morphology Comment NORMAL Ovalocytes 1+ [place]bar[place] Bodies PRESENT Prothrombin Time 12.6 SEC Prothromb Time International Ratio 1.2 RATIO Total Protein 5.5 GM/DL Alkaline Phosphatase 154 U/L Alanine Aminotransferase (ALT/SGPT) 16 U/L Total Bilirubin 0.6 MG/DL Lactic Acid Level 2.6 mmol/L Date/Time Source Procedure Growth Status 11/16/17 23:45 Blood Peripheral Aerobic Blood Culture Pending Received 11/16/17 23:45 Blood Peripheral Anaerobic Blood Culture Pending Received Physical Examination HEENT: PERRL; normocephalic; atraumatic; no jaundice. CHEST: CTA CARDIAC: RRR ABDOMEN: Soft, distention and tympany lower abd, lower abd TTP, no hepatosplenomegaly; bowel sounds are present in all four quadrants. NGT clamped EXTREMITIES: No clubbing, cyanosis, or edema. SKIN: Normal; no rash; no jaundice. BELT PICKER: lethargic but oriented x 3 (Karime Montano) Assessment and Plan Plan ASSESSMENT - abd pain, distention - recent onset lower abd pain. partial bowel obstruction vs gastroenteritis? KUB showed no obstruction. CT showed distended stomach, fluid distended but nondilated loops small bowel. US negative for occlusion or significant stenosis mesenteric arteries. last cscope 5y ago and normal. no n/v. semi formed BM yesterday GS consult is pending. rectal tube placed - HTN, NISHANT, COPD, ITP per [facility] - await GS eval - colonoscopy, timing TBD - NGT to LIWS - monitor labs - IV abx - further recs to follow pt seen by myself and Dr Howell and this note is on her behalf (Karime Montano) Physician Comments seen, examined agree with above passing flatus as per patient abdominal pain better concern for ischemic bowel ok to start anticoagulation form gi point if clinically indicated egd/colonoscopy once stable or active bleeding repeat ct abdomen and pelvis-cannot have iv contrast due to renal insufficiency (Ina Howell MD) Karime Montano Nov 17, 2017 10:29 Ina Howell MD Nov 17, 2017 10:58
--- NOTE | 2017-11-17 11:50 | EKG ---
Date Performed: 11/17/2017 Time Performed: 00:00:26 PTAGE: 67 years EKG: Sinus rhythm POSSIBLE LEFT ATRIAL ENLARGEMENT NONSPECIFIC ST & T-WAVE ABNORMALITY BORDERLINE ECG PREVIOUS TRACING : 09/03/2017 14.54 Since the previous tracing, no significant change noted DOCTOR: Ashanti Santos Interpretating Date/Time 11/17/2017 11:48:32
[2017-11-17] MEDS ORDERED: VANCOMYCIN 500 MG/NS 100 ML IV ONE ×2 (12:00)
[2017-11-17 13:22] LABS: BICARBONATE 18.6 MEQ/L (21.0-32.0); CALCIUM 7.2 MG/DL (8.5-10.1); CALCIUM-PROTEIN CORRECTED 8.1 MG/DL (8.5-10.1); CREATININE 2.34 MG/DL (0.50-1.00)
[2017-11-17] MEDS ORDERED: DIATRIZOATE MEGLUM/DIATRIZOATE SOD 9 ML CUP PO ONE (13:30)
--- NOTE | 2017-11-17 15:59 | PD.CONS ---
cc: Eriberto Box MD HPI Service General Surgery Consult Requested By Dr. 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 The patient presented to the ED yesterday with complaints of severe sudden onset of abdominal pain. The patient is a relatively poor historian and much of the past medical history and history of present illness is obtained for the chart. The patient reports nausea without vomiting. A CT abdomen/pelvis was obtained which showed a distended stomach. A NGT was placed with about 250 cc output. A rectal tube has also been placed with minimal output. She has also had a KUB which is essentially normal. She had an abdominal US which shows no occlusion or significant stenosis. Of note, the patient did have a embolectomy in September 2017 for LEFT popliteal artery occlusion and was started on Xarelto. A General Surgery consultation has been requested. Review of Systems ROS Limitations: Clinical Condition, Altered Mental Status, Uncooperative Past Family Social History Past Medical History Chronic ITP Chronic anemia Chronic back pain COPD---oxygen dependent Hypertension LEFT popliteal artery occlusion Arthritis Past Surgical History Splenectomy in 2009 s/p embolectomy in Sep 2017 C section tubal ligation RIGHT eye surgery RIGHT hip replacement Reported Medications See chart as list is extensive but not that the patient is on Xarelto and last took Friday. Allergies: Coded Allergies: Sulfa (Sulfonamide Antibiotics) (Verified Allergy, Severe, Hives, 11/16/17) ciprofloxacin (Verified Allergy, Severe, Hives, 11/16/17) Active Ordered Medications Current Medications Medications (Trade) Dose Ordered Sig/Colton Route Start Time Stop Time Status Last Admin Sodium Chloride 1,000 ml @ 125 mls/hr Q8H IV 11/17/17 06:40 (NS Flush) 2 ml UNSCH PRN IV FLUSH 11/17/17 06:45 11/17/17 08:29 (NS Flush) 2 ml BID IV FLUSH 11/17/17 09:00 11/17/17 08:28 (Tylenol) 650 mg Q6H PRN PO 11/17/17 06:45 (Pepcid Inj) 20 mg Q12HR IV PUSH 11/17/17 09:00 11/17/17 08:29 (Zofran Inj) 4 mg Q6H PRN IV PUSH 11/17/17 06:45 (Duoneb Neb) 1 ampule Q4HR NEB PRN INH 11/17/17 06:45 Miscellaneous Information 1 Q361D XX 11/17/17 06:45 (Chlorhexidine 2% Cloth) 3 pack Taper DAILY@04 TOP 11/18/17 04:00 11/14/18 03:59 (Chlorhexidine 2% Cloth) 3 pack UNSCH PRN TOP 11/17/17 06:45 (Rita-Colace) 1 tab BID PO 11/17/17 09:00 11/17/17 08:29 (Milk Of Magnesia Liq) 30 ml Q12H PRN PO 11/17/17 06:45 (Senokot) 17.2 mg Q12H PRN PO 11/17/17 06:45 11/17/17 09:11 (Dulcolax Supp) 10 mg DAILY PRN RECTAL 11/17/17 06:45 (Lactulose Liq) 30 ml DAILY PRN PO 11/17/17 06:45 11/17/17 09:11 Acetaminophen 100 ml @ 400 mls/hr Q6H IV 11/17/17 07:00 11/18/17 07:00 11/17/17 12:35 Pharmacy Profile Note 0 ml @ 0 mls/hr UNSCH OTHER 11/17/17 07:45 (Dilaudid Pf Inj) 1 mg Q4H PRN IV PUSH 11/17/17 08:15 11/17/17 14:35 (Albuterol Neb) 2.5 mg Q4HR NEB PRN NEB 11/17/17 07:45 (Pulmicort Respule Neb) 0.25 mg DAILY NEB NEB 11/17/17 08:00 (Spiriva Inh) 18 mcg DAILY INH 11/17/17 09:00 Non-Formulary Medication 1 nebule BID INH 11/17/17 09:00 Future Hold Cefepime HCl 2000 mg/Sodium Chloride 100 ml @ 200 mls/hr Q24H IV 11/18/17 09:00 Family History Non contributory Social History Past heavy tobacco and ETOH use in the past Lives with her . Physical Exam Vital Signs Vital Signs Date Time Temp Pulse Resp B/P (MAP) Pulse Ox O2 Delivery O2 Flow Rate FiO2 11/17/17 08:00 105 11/17/17 07:39 97 Nasal Cannula 3.00 11/17/17 06:48 99.0 110 20 145/95 (112) 96 11/17/17 05:19 108 18 96 Nasal Cannula 3.00 11/17/17 04:42 18 11/17/17 04:22 97.2 105 18 125/79 (94) 98 Nasal Cannula 3.00 11/17/17 03:18 111 18 114/49 (70) 95 Nasal Cannula 3.00 11/17/17 01:38 102 18 129/59 (82) 100 Nasal Cannula 5.00 11/17/17 00:36 103 18 103/40 (61) 98 Nasal Cannula 3.00 11/17/17 00:07 99 16 116/51 (72) 94 Nasal Cannula 3.00 11/16/17 23:55 97 Nasal Cannula 3.00 11/16/17 23:26 16 11/16/17 23:24 104 18 90/72 (78) 11/16/17 23:04 97.4 105 70/49 (56) 95 Physical Exam GENERAL: 67 year old female resting in bed in mild acute distress from abdominal pain. SKIN: Warm and dry. HEAD: Atraumatic. Normocephalic. EYES: Pupils equal and round. No scleral icterus. No injection or drainage. ENT: No nasal bleeding or discharge. Mucous membranes pink and moist. NECK: Trachea midline. CARDIOVASCULAR: Regular rate and rhythm. RESPIRATORY: No accessory muscle use. Clear to auscultation. Breath sounds equal bilaterally. GASTROINTESTINAL: Abdomen distended; tender throughout; hypoactive bowel sounds ; large well healed midline scar and low transverse scar. MUSCULOSKELETAL: Extremities without clubbing, cyanosis, or edema. No obvious deformities. NEUROLOGICAL: Lethargic but awakes to verbal command. No obvious cranial nerve deficits. Motor grossly within normal limits. Five out of 5 muscle strength in the arms and legs. Mumbled speech. PSYCHIATRIC: Appropriate mood Laboratory Laboratory Tests Test 11/16/17 23:42 11/17/17 02:02 11/17/17 02:10 11/17/17 02:30 White Blood Count 10.0 Red Blood Count 3.15 Hemoglobin 12.6 Hematocrit 38.4 Mean Corpuscular Volume 122.1 Mean Corpuscular Hemoglobin 40.2 Mean Corpuscular Hemoglobin Concent 32.9 Red Cell Distribution Width 16.4 Platelet Count 59 Mean Platelet Volume 8.1 Neutrophils (%) (Auto) 80.6 Lymphocytes (%) (Auto) 12.9 Monocytes (%) (Auto) 5.8 Eosinophils (%) (Auto) 0.1 Basophils (%) (Auto) 0.6 Neutrophils # (Auto) 8.0 Lymphocytes # (Auto) 1.3 Monocytes # (Auto) 0.6 Eosinophils # (Auto) 0.0 Basophils # (Auto) 0.1 CBC Comment AUTO DIFF Differential Total Cells Counted 100 Neutrophils % (Manual) 64 Band Neutrophils % 14 Lymphocytes % 16 Monocytes % 5 Neutrophils # (Manual) 7.9 Metamyelocytes 1 Differential Comment FINAL DIFF MANUAL Dohle Bodies PRESENT Platelet Estimate LOW Platelet Morphology Comment CLUMPED Prothrombin Time 13.7 Prothromb Time International Ratio 1.4 Activated Partial Thromboplast Time 27.3 Blood Urea Nitrogen 29 Creatinine 2.10 Random Glucose 138 Total Protein 7.3 Albumin 3.8 Calcium Level 9.3 Magnesium Level 2.7 Alkaline Phosphatase 289 Aspartate Amino Transf (AST/SGOT) 59 Alanine Aminotransferase (ALT/SGPT) 15 Total Bilirubin 0.9 Sodium Level 139 Potassium Level 3.2 Chloride Level 104 Carbon Dioxide Level 22.3 Anion Gap 13 Estimat Glomerular Filtration Rate 23 Lactic Acid Level 6.8 5.1 Lipase 108 Urine Collection Type CLEAN CATCH Urine Color YELLOW Urine Turbidity CLEAR Urine pH 5.5 Urine Specific [place] 1.015 Urine Protein NEG Urine Glucose (UA) NEG Urine Ketones NEG Urine Occult Blood NEG Urine Nitrite NEG Urine Bilirubin NEG Urine Urobilinogen 0.2 Urine Leukocyte Esterase NEG Urine Squamous Epithelial Cells 0-5 Urine Amorphous Sediment FEW Urine Bacteria Urine Mucus FEW Microscopic Urinalysis Comment CULT NOT INDICATED Blood Gas Puncture Site RT RADIAL Blood Gas Patient Temperature 98.6 Blood Gas HCO3 16 Blood Gas Base Excess -9.7 Blood Gas Oxygen Saturation 96 Arterial Blood pH 7.23 Arterial Blood Partial Pressure CO2 40 Arterial Blood Partial Pressure O2 135 Arterial Blood Oxygen Content 14.2 Arterial Blood Carboxyhemoglobin 1.4 Arterial Blood Methemoglobin 1.5 Blood Gas Hemoglobin 10.3 Oxygen Delivery Device NASAL CANNULA Blood Gas Liter Flow 4.5 Test 11/17/17 06:00 11/17/17 07:28 11/17/17 07:29 11/17/17 12:23 Nasal Screen MRSA (PCR) MRSA NOT DETECTED White Blood Count 6.8 Red Blood Count 2.36 Hemoglobin 9.8 Hematocrit 29.6 Mean Corpuscular Volume 125.4 Mean Corpuscular Hemoglobin 41.4 Mean Corpuscular Hemoglobin Concent 33.0 Red Cell Distribution Width 14.8 Platelet Count 67 Mean Platelet Volume 9.9 Neutrophils (%) (Auto) 72.0 Lymphocytes (%) (Auto) 21.6 Monocytes (%) (Auto) 6.3 Eosinophils (%) (Auto) 0.0 Basophils (%) (Auto) 0.1 Neutrophils # (Auto) 4.9 Lymphocytes # (Auto) 1.5 Monocytes # (Auto) 0.4 Eosinophils # (Auto) 0.0 Basophils # (Auto) 0.0 CBC Comment AUTO DIFF Differential Total Cells Counted 100 Neutrophils % (Manual) 29 Band Neutrophils % 41 Lymphocytes % 20 Monocytes % 2 Neutrophils # (Manual) 5.3 Metamyelocytes 6 Myelocytes 2 Differential Comment FINAL DIFF MANUAL Toxic Vacuolation PRESENT Platelet Estimate LOW Platelet Morphology Comment NORMAL Ovalocytes 1+ [place]barra-[place] Bodies PRESENT Prothrombin Time 12.6 Prothromb Time International Ratio 1.2 Lactic Acid Level 2.6 Blood Urea Nitrogen 35 Creatinine 2.34 Random Glucose 69 Total Protein 5.5 Albumin 3.0 Calcium Level 7.2 Alkaline Phosphatase 154 Aspartate Amino Transf (AST/SGOT) 68 Alanine Aminotransferase (ALT/SGPT) 16 Total Bilirubin 0.6 Sodium Level 147 Potassium Level 4.7 Chloride Level 114 Carbon Dioxide Level 18.6 Anion Gap 14 Estimat Glomerular Filtration Rate 21 Protein Corrected Calcium 8.1 Date/Time Source Procedure Growth Status 11/16/17 23:45 Blood Peripheral Aerobic Blood Culture - Preliminary NO GROWTH IN 1 DAY Resulted 11/16/17 23:45 Blood Peripheral Anaerobic Blood Culture - Preliminary NO GROWTH IN 1 DAY Resulted Result Diagram: 11/17/17 0728 11/17/17 1223 Imaging Last 48 hours Impressions Abdomen/Pelvis CT 11/17/17 0000 Signed Impressions: Service Date/Time: Friday, November 17, 2017 01:08 - CONCLUSION: 1. Distended stomach. 2. Fluid distended colon without dilated loops of small bowel. Víctor Bates MD Abdomen X-Ray 11/17/17 0000 Signed Impressions: Service Date/Time: Friday, November 17, 2017 07:37 - CONCLUSION: No bowel obstruction, ileus or perforation. Swapnil Saldaña MD Abdomen Ultrasound 11/17/17 0000 Signed Impressions: Service Date/Time: Friday, November 17, 2017 08:01 - CONCLUSION: Negative for occlusion or significant stenosis. Luis A Castillo MD FACR Chest X-Ray 11/16/17 2326 Signed Impressions: Service Date/Time: Thursday, November 16, 2017 23:51 - CONCLUSION: Hyperaerated lungs. No infiltrates seen. Víctor Bates MD Assessment and Plan Assessment and Plan 67 year old female with abdominal pain; lactic acidosis -Await repeat CT with PO contrast -NPO -NGT to LIWS -Maintain rectal tube -Hold OAC -No surgical plans at this time Discussed Condition With Dr. Charu Nunn RN Attending Statement The exam, history, and the medical decision-making described in the above note were completed with the assistance of the mid-level provider. I reviewed and agree with the findings presented. I attest that I had a [id number] encounter with the patient on the same day, and personally performed and documented my assessment and findings in the medical record. patient admitted with abdominal pain and possible SBO, multiple comorbidities CT scan reviewed, likely not SBO, possible colitis or enteritis recommend medical management, antibiotics, IVF, GI consult will benefit for a colonoscopy when more stable thank you for consult, will follow Nicky Neil/911 Emergency Dispatcher KENNEL AIDE Nov 17, 2017 15:59 Eriberto Box MD Dec 02, 2017 12:32
[2017-11-17] MEDS ORDERED: HEPARIN-D5W 25,000 U/250 ML 250 ML IV PRN (16:45)
--- NOTE | 2017-11-17 18:50 | MB ---
cc: Braden Luong MD DATE OF CONSULT: 11/17/2017 ATTENDING PHYSICIAN: Glenis Flores MD REASON FOR CONSULTATION: Hematology consulted to render opinion on patient with history of embolic event as well as history of chronic idiopathic thrombocytopenic purpura. HISTORY OF PRESENT ILLNESS: The patient is a very pleasant 67-year-old female with a history of chronic idiopathic thrombocytopenic purpura as well as left lower extremity emboli, presented to the hospital with complaint of severe abdominal pain. When I saw patient, she just had Dilaudid and was kind of drowsy and she is not a very good historian. She kept falling asleep. Apparently, she has had constipation for a few days and has been taking laxative. Yesterday, she developed severe abdominal pain. She described it as diffuse abdominal pain and she also noticed some abdominal distention. She denies any melena or hematochezia. She has been taking Xarelto every day. She denies any fever or chills. She denies any chest pain, no palpitation. She has no shortness of breath or cough. She denies significant nausea or vomiting. She denies any dysuria, hematuria. PAST MEDICAL HISTORY: 1. Chronic idiopathic thrombocytopenic purpura. 2. Chronic anemia. 3. Chronic back pain. 4. Multiple compression fractures. 5. Chronic obstructive pulmonary disease. 6. Hypertension. 7. Left popliteal arterial occlusion. PAST SURGICAL HISTORY: 1. 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 2. . 3. Right eye cataract surgery. 4. Tubal ligation. 5. Right total hip surgery. 6. Tonsillectomy. 7. Bone marrow biopsy, last one a few months ago. 8. Left lower extremity embolectomy. FAMILY HISTORY: Mother had hypertension. Father had heart disease. No history of thromboembolic event. SOCIAL HISTORY: Smoked a pack a day from age [age], quit about 2 years ago. She also quit drinking alcohol. ALLERGIES: SULFA AND CIPROFLOXACIN. OUTPATIENT MEDICATIONS: Include lisinopril, Singulair, Spiriva, Flexeril, Pulmicort, Xarelto. REVIEW OF SYSTEMS: CONSTITUTIONAL: Negative. ENT: Negative. EYES: Negative. CARDIOVASCULAR: No chest pain or palpitation. RESPIRATORY: No shortness of breath or cough. GASTROINTESTINAL: As above. GENITOURINARY: No dysuria or hematuria. MUSCULOSKELETAL: Negative. HEMATOLOGIC: As above. ENDOCRINE: Negative. PSYCHIATRIC: Negative. NEUROLOGIC: Negative. PHYSICAL EXAMINATION: VITAL SIGNS: Temperature 99, blood pressure 145/95, pulse 105. GENERAL: She is drowsy but easily arousable. No acute distress. HEENT: Atraumatic, normocephalic. Pupils equal, round, reactive to light. Extraocular muscles intact. No scleral icterus. Oropharynx dry mucosa. No lesion, no thrush, no sores. NECK: No thyromegaly. No palpable mass. LYMPHATIC: No palpable cervical, clavicular, axillary, or inguinal lymph node. CARDIOVASCULAR: Regular S1 and S2. Mild tachycardia, no murmur. LUNGS: Clear to auscultation anteriorly. ABDOMEN: Soft, but tenderness diffusely. No rebound or rigidity. Positive bowel sounds. EXTREMITIES: No cyanosis, no clubbing. No significant edema. No calf tenderness. BACK: No paravertebral tenderness. SKIN: No rash or petechiae. NEUROLOGIC: Nonfocal. LABORATORY DATA: WBC 6.8, hemoglobin 9.8, platelet count 67,000. INR 1.2, PTT 27.3. Creatinine of 2.34, AST 68. ASSESSMENT: 1. History of left popliteal arterial occlusion, likely an embolic event. She had embolectomy in September of this year. She was then started on Pradaxa, but later switched to Xarelto. She stated that she has been taking Xarelto daily. There is no evidence of bleeding. Her hemoglobin is 9.8 this morning. When she left the hospital in September, her hemoglobin was 8.6. Yesterday, her hemoglobin 12.6, but it may be due to hemoconcentration. The patient denies any melena, or hematochezia. She presented with abdominal pain and gastroenterology felt that this could be an ischemic bowel. Dr. Howell had cleared her to restart anticoagulation. Given that there is a possible drop in hemoglobin, I am going to start her on heparin and monitor her hemoglobin closely to make sure she has no active bleeding. If her hemoglobin remains stable, then she could be transition to oral anticoagulation. She has no evidence of recurrent left lower extremity clot at this time. 2. Chronic idiopathic thrombocytopenic purpura. She is currently under the care of a metal crafts teacher. She has had splenectomy in 2009. She was treated with Nplate in the past with good response. Her platelet count has been fluctuating between 40,000-70,000. On admission, platelet count was 59,000. Today, it went up to 67,000. There is no active bleed noted. There is no indication to start treatment for the idiopathic thrombocytopenic purpura at this point. 3. Abdominal pain. She presented with acute severe abdominal pain. CT without contrast did not show any bowel obstruction. Ultrasound also negative for occlusion or stenosis. She is awaiting a repeat CT of the abdomen and pelvis with contrast. 4. Chronic anemia. She used to receive a Procrit. It is unclear what her baseline hemoglobin is. 5. Chronic obstructive pulmonary disease. PLAN: 1. Start heparin drip. 2. Monitor H and H. 3. Await CT abdomen and pelvis with contrast. 4. Monitor for signs of bleeding. 5. Discussed with nursing staff. 6. Monitor platelet. Thank you, Dr. Flores, for asking me to see this patient. MD GLORIA Abraham/ADOLPH , 04:56 PM , 06:49 PM DANIEL
[2017-11-17 18:59] LABS: HEMATOCRIT 29.5 % (35.0-46.0); HEMOGLOBIN 9.5 GM/DL (11.6-15.3); MEAN CELL VOLUME 127.5 FL (80.0-100.0); MEAN CORPUSCULAR HEMOGLOBIN 40.9 PG (27.0-34.0); MEAN CORPUSCULAR HGB CONC 32.1 % (32.0-36.0); MEAN PLATELET VOLUME 8.9 FL (7.0-11.0); PLATELET COUNT 46 TH/MM3 (150-450); RED BLOOD COUNT 2.31 MIL/MM3 (4.00-5.30); RED CELL DISTRIBUTION WIDTH 15.5 % (11.6-17.2); WHITE BLOOD COUNT 6.1 TH/MM3 (4.0-11.0)
[2017-11-17] MEDS: metroNIDAZOLE 500 MG INJ 100 ML IV SCH (21:10)
[2017-11-17 21:11] LABS: INTERNATIONAL NORMALIZED RATIO 1.2 RATIO; PROTHROMBIN TIME - PATIENT 12.5 SEC (9.8-11.6)
[2017-11-17] MEDS ORDERED: EPINEPHrine HCL (1:10,000) 1 MG/10 ML SYRINGE ONE (22:03)
--- NOTE | 2017-11-17 22:29 | RADRPT ---
EXAM DATE/TIME: 11/17/2017 22:11 [facility] COMPARISON: No previous studies available for comparison. INDICATIONS : Follow up for ileus. ORAL CONTRAST: Prescribed oral contrast ingested. RADIATION DOSE: 13.94 CTDIvol (mGy) MEDICAL HISTORY : Hypertension. Chronic obstructive pulmonary disease. SURGICAL HISTORY : Tubal ligation. right hip replacement ENCOUNTER: Subsequent ACUITY: 2 days PAIN SCALE: 10/10 LOCATION: Bilateral lower quadrant TECHNIQUE: Volumetric scanning of the abdomen and pelvis was performed. Using automated exposure control and ad justment of the mA and/or kV according to patient size, radiation dose was kept as low as reasonably achievable to obtain optimal diagnostic quality images. DICOM format image data is available electro nically for review and comparison. FINDINGS: Minimal basilar atelectasis or scarring. There is diffuse fluid and gaseous distention of bowel including the stomach. Findings are similar to exam from earlier today. Findings are most characteristic of a diffuse ileus. No acute findings in the liver, spleen, adrenals, kidneys or pancreas. No calcified gallstones. There is mild anasarca. Small amount of free fluid present in the abdomen and pelvis. Valencia catheter in bladder. Rectal tube present. Previous right hip replacement. CONCLUSION: 1. Diffuse gas and fluid distention of bowel and stomach most characteristic of a diffuse ileus. No f ree air. Small amount of free fluid. Mild anasarca. Roby Briot MD on November 17, 2017 at 22:23 Board Certified Radiologist. This report was verified electronically.
[2017-11-17] MEDS ORDERED: SODIUM CHLOR 0.9% 1000 ML INJ 3,000 ML IV ONE (23:45)
[2017-11-18] VITALS (15 sets, daily range): BP systolic 124–138; BP diastolic 60–69; PULSE 100–123; RESP 20–22; TEMP 97.8–98.3; O2SAT 94–100
[2017-11-18] MEDS: RESP: ALBUTEROL 2.5 MG/3 ML NEB (PRN) NEB (00:23)
[2017-11-18] MEDS: ACETAMINOPHEN 1000 MG/100 ML 100 ML IV SCH ×2 (01:00→06:23)
[2017-11-18] MEDS: SODIUM CHLOR 0.9% 1000 ML INJ 1,000 ML IV SCH (02:23)
[2017-11-18] MEDS ORDERED: SODIUM CHLOR 0.9% 1000 ML INJ 1,000 ML IV SCH (03:30)
[2017-11-18] MEDS: SODIUM CHLOR 0.45% 1000 ML INJ 1,000 ML IV SCH ×3 (03:30→05:09)
[2017-11-18] MEDS: CHLORHEXIDINE GLUCONATE 2 % 1 PACK (2 CLOTHS) TOP SCH (03:53)
[2017-11-18] MEDS: ALBUMIN 25% INJ 100 ML IV SCH ×4 (03:53→05:28)
[2017-11-18] MEDS: metroNIDAZOLE 500 MG INJ 100 ML IV SCH ×3 (03:53→20:57)
[2017-11-18 04:51] LABS: AUTOMATED NEUTROPHIL # 3.4 TH/MM3 (1.8-7.7); BASOPHIL % 0.3 % (0.0-2.0); HEMATOCRIT 25.6 % (35.0-46.0); HEMOGLOBIN 8.4 GM/DL (11.6-15.3); LYMPH % 18.2 % (9.0-44.0); LYMPHOCYTE # 0.8 TH/MM3 (1.0-4.8); MEAN CELL VOLUME 126.5 FL (80.0-100.0); MEAN CORPUSCULAR HEMOGLOBIN 41.6 PG (27.0-34.0); MEAN CORPUSCULAR HGB CONC 32.9 % (32.0-36.0); MEAN PLATELET VOLUME 8.6 FL (7.0-11.0); MONO % 7.3 % (0.0-8.0); MONOCYTE # 0.3 TH/MM3 (0-0.9); NEUT % 73.2 % (16.0-70.0); PLATELET COUNT 32 TH/MM3 (150-450); RED BLOOD COUNT 2.02 MIL/MM3 (4.00-5.30); RED CELL DISTRIBUTION WIDTH 14.8 % (11.6-17.2); WHITE BLOOD COUNT 4.6 TH/MM3 (4.0-11.0)
[2017-11-18 04:55] LABS: INTERNATIONAL NORMALIZED RATIO 1.4 RATIO
[2017-11-18 05:14] LABS: ALBUMIN 3.2 GM/DL (3.4-5.0); BICARBONATE 16.1 MEQ/L (21.0-32.0); CALCIUM 6.6 MG/DL (8.5-10.1); CREATININE 2.93 MG/DL (0.50-1.00); PHOSPHORUS 5.9 MG/DL (2.5-4.9); RANDOM VANCOMYCIN 16.6 COMMENT; TOTAL BILIRUBIN ADULT 0.5 MG/DL (0.2-1.0); TOTAL PROTEIN 5.8 GM/DL (6.4-8.2)
[2017-11-18 05:26] LABS: CALCIUM-PROTEIN CORRECTED 7.2 MG/DL (8.5-10.1)
[2017-11-18] MEDS: RESP: ALBUTEROL 2.5 MG/IPRATROPIUM 0.5 MG NEB (PRN) INH ×3 (05:54→23:40)
[2017-11-18] MEDS: RESP: BUDESONIDE 0.25 MG/2 ML NEB NEB SCH (08:00)
[2017-11-18] MEDS: SODIUM CHLORIDE 0.9% FLUSH 10 ML FLUSH IV FLUSH SCH ×2 (08:14→20:57)
[2017-11-18] MEDS: FAMOTIDINE 20 MG/2 ML VIAL IV PUSH SCH ×2 (08:14→20:56)
[2017-11-18] MEDS: DOCUSATE SODIUM 50 MG/SENNA 8.6 MG TAB PO SCH ×2 (08:14→20:56)
[2017-11-18] MEDS: CEFEPIME INJ 2,000 MG in SODIUM CHLORIDE 0.9% INJ 100 ML IV SCH (08:15)
[2017-11-18] MEDS: TIOTROPIUM BROMIDE 18 MCG INH INH SCH (09:00)
[2017-11-18] MEDS ORDERED: CALCIUM GLUCONATE INJ 2 GM in SODIUM CHLORIDE 0.9% INJ 100 ML IV ONE (10:45)
[2017-11-18] MEDS ORDERED: SODIUM CHLOR 0.45% 500 ML INJ 500 ML IV ONE (10:45)
[2017-11-18] MEDS ORDERED: VANCOMYCIN 1,000 MG/NS 250 ML IV ONE ×2 (11:00)
--- NOTE | 2017-11-18 11:14 | HHI.GIFU ---
Subjective Remarks Pt resting in bed, family at bedside. She is having tremors. (Karime Montano) Objective Vitals I&O Vital Signs Date Time Temp Pulse Resp B/P (MAP) Pulse Ox O2 Delivery O2 Flow Rate FiO2 11/18/17 08:00 105 11/18/17 00:15 94 Nasal Cannula 4.00 11/17/17 19:10 100 Nasal Cannula 3.00 11/17/17 18:00 98 11/17/17 16:00 98 11/17/17 14:00 100 11/17/17 12:00 100 I/O 11/17/17 11/17/17 11/17/17 11/18/17 11/18/17 11/18/17 07:00 15:00 23:00 07:00 15:00 23:00 Intake Total 3840 ml 500 ml 3946 ml Output Total 200 ml 400 ml 360 ml Balance 3640 ml 100 ml 3586 ml Intake Oral 0 ml IV Total 3840 ml 500 ml 3946 ml Output Urine Total 200 ml 100 ml 150 ml Stool Total 10 ml Gastric Drainage Total 300 ml 200 ml # Voids 1 Laboratory Laboratory Tests Test 11/17/17 12:23 11/17/17 18:41 11/17/17 19:58 11/18/17 04:16 Blood Urea Nitrogen 35 45 Creatinine 2.34 2.93 Random Glucose 69 66 Total Protein 5.5 5.8 Albumin 3.0 3.2 Calcium Level 7.2 6.6 Alkaline Phosphatase 154 115 Aspartate Amino Transf (AST/SGOT) 68 83 Alanine Aminotransferase (ALT/SGPT) 16 19 Total Bilirubin 0.6 0.5 Sodium Level 147 143 Potassium Level 4.7 4.6 Chloride Level 114 113 Carbon Dioxide Level 18.6 16.1 Anion Gap 14 14 Estimat Glomerular Filtration Rate 21 16 Protein Corrected Calcium 8.1 7.2 White Blood Count 6.1 4.6 Red Blood Count 2.31 2.02 Hemoglobin 9.5 8.4 Hematocrit 29.5 25.6 Mean Corpuscular Volume 127.5 126.5 Mean Corpuscular Hemoglobin 40.9 41.6 Mean Corpuscular Hemoglobin Concent 32.1 32.9 Red Cell Distribution Width 15.5 14.8 Platelet Count 46 32 Mean Platelet Volume 8.9 8.6 Prothrombin Time 12.5 14.0 Prothromb Time International Ratio 1.2 1.4 Activated Partial Thromboplast Time 32.0 Neutrophils (%) (Auto) 73.2 Lymphocytes (%) (Auto) 18.2 Monocytes (%) (Auto) 7.3 Eosinophils (%) (Auto) 1.0 Basophils (%) (Auto) 0.3 Neutrophils # (Auto) 3.4 Lymphocytes # (Auto) 0.8 Monocytes # (Auto) 0.3 Eosinophils # (Auto) 0.0 Basophils # (Auto) 0.0 CBC Comment DIFF FINAL Differential Comment Phosphorus Level 5.9 Magnesium Level 2.0 Lactic Acid Level 1.5 Random Vancomycin Level 16.6 Date/Time Source Procedure Growth Status 11/16/17 23:45 Blood Peripheral Aerobic Blood Culture - Preliminary NO GROWTH IN 2 DAYS Resulted 11/16/17 23:45 Blood Peripheral Anaerobic Blood Culture - Preliminary NO GROWTH IN 2 DAYS Resulted Imaging Last Impressions Abdomen/Pelvis CT 11/17/17 0000 Signed Impressions: Service Date/Time: Friday, November 17, 2017 22:11 - CONCLUSION: 1. Diffuse gas and fluid distention of bowel and stomach most characteristic of a diffuse ileus. No free air. Small amount of free fluid. Mild anasarca. Roby Brito MD Abdomen X-Ray 11/17/17 0000 Signed Impressions: Service Date/Time: Friday, November 17, 2017 07:37 - CONCLUSION: No bowel obstruction, ileus or perforation. Swapnil Saldaña MD Abdomen Ultrasound 11/17/17 0000 Signed Impressions: Service Date/Time: Friday, November 17, 2017 08:01 - CONCLUSION: Negative for occlusion or significant stenosis. Luis A Castillo MD FACR Chest X-Ray 11/16/17 [id number] Signed Impressions: Service Date/Time: Thursday, November 16, 2017 23:51 - CONCLUSION: Hyperaerated lungs. No infiltrates seen. Víctor Bates MD Physical Exam HEENT: PERRL; normocephalic; atraumatic; no jaundice. CHEST: CTA CARDIAC: RRR ABDOMEN: Soft, distended, mild diffuse TTP; no hepatosplenomegaly; bowel sounds are present in all four quadrants. scant blood in NGT. grayish liquid stool in bag EXTREMITIES: No clubbing, cyanosis, or edema. SKIN: Normal; no rash; no jaundice. MANAGER DIVISION: tremulous (Karime Montano) Assessment and Plan Plan ASSESSMENT - abd pain, distention - recent onset lower abd pain. partial bowel obstruction vs gastroenteritis? KUB showed no obstruction. CT showed distended stomach, fluid distended but nondilated loops small bowel. US negative for occlusion or significant stenosis mesenteric arteries. last cscope 5y ago and normal. no n/v. semi formed BM yesterday GS consult is pending. rectal tube placed - HTN, NISHANT, COPD, ITP per CCM 11/18/17 tremors/involuntary movements, low calcium. scant blood NGT, grayish stool in bag. drop in HH, had several fluid boluses yesterday PLT down to 32k PLAN - correct Calcium - EGD and colonoscopy when stable, Dr Howell to reevaluate later today - rectal tube - NGT - ok for anticoag - monitor labs - IV abx - continue supportive care pt seen by myself and Dr Howell and this note is on her behalf (Karime Montano) Karime Montano Nov 18, 2017 11:14 Ina Howell MD Nov 18, 2017 12:43
[2017-11-18] MEDS: DEXT 5%-NACL 0.45% 1000 ML INJ 1,000 ML IV SCH ×2 (11:44→20:57)
[2017-11-18] MEDS: HYDROmorphone HCL PF 2 MG/ML VIAL IV PUSH PRN ×3 (12:36→21:05)
[2017-11-18] MEDS ORDERED: HEPARIN-D5W 25,000 U/250 ML 250 ML IV PRN (12:45)
[2017-11-18] MEDS ORDERED: MISCELLANEOUS PHARMACY INFORMATION OTHER ONE (12:45)
[2017-11-18] MEDS ORDERED: SODIUM BICARBONATE 8.4% INJ 50 ML ONE ×2 (12:56→12:57)
[2017-11-18] MEDS ORDERED: SODIUM BICARBONATE 8.4% INJ 150 MEQ in WATER STERILE FOR INJ 850 ML IV SCH (13:00)
[2017-11-18] MEDS ORDERED: SODIUM BICARBONATE 8.4% INJ 50 MEQ/50 ML SYR IV PUSH ONE (13:00)
--- NOTE | 2017-11-18 13:14 | HHI.CCPN ---
Subjective Remarks/Hospital Course This is a 67-year-old female that presented to [facility], by private transportation for evaluation of severe abdominal pain. Patient states of the past week she has had constipation so last evening took laxatives ( Senokot) x 3 days, and then today had large bowel movement multiple times with development of severe lower abdominal pain. Patient had subsequently noted some abdominal distention. Patient states her abdomen is exquisitely tender with any movement. Patient also complains of some epigastric pain. 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 No report of hematemesis or coffee-ground emesis. Patient states after bowel movements no report of melena or hematochezia. Patient rates her abdominal pain 10/10 in intensity, without relief of narcotics. The patient was transferred to [facility] , critical care medicine was consulted. Subjective: 11/18: Overnight the patient was known to be oliguric, the patient received Objective Vital Signs Date Time Temp Pulse Resp B/P (MAP) Pulse Ox O2 Delivery O2 Flow Rate FiO2 11/18/17 11:59 96 Nasal Cannula 4.00 11/18/17 08:00 105 11/17/17 06:48 99.0 20 145/95 (112) Intake and Output 11/18/17 11/18/17 11/19/17 08:00 16:00 00:00 Intake Total 3946 ml Output Total 360 ml Balance 3586 ml Result Diagram: 11/18/17 0416 11/18/17 0416 Imaging Last Impressions Abdomen/Pelvis CT 11/17/17 0000 Signed Impressions: Service Date/Time: Friday, November 17, 2017 01:08 - CONCLUSION: 1. Distended stomach. 2. Fluid distended colon without dilated loops of small bowel. Víctor Bates MD Chest X-Ray 11/16/17 [id number] Signed Impressions: Service Date/Time: Thursday, November 16, 2017 23:51 - CONCLUSION: Hyperaerated lungs. No infiltrates seen. Víctor Bates MD Objective Remarks GENERAL: This is a pale thin female writhing in bed, secondary to abdominal pain SKIN: Warm and dry. Pale HEAD: Atraumatic. Normocephalic. EYES: Pupils equal and round. No scleral icterus. No injection or drainage. ENT: No nasal bleeding or discharge. Mucous membranes pink and moist. NG tube to LIWS NECK: Trachea midline. No JVD. CARDIOVASCULAR: Normal rate, regular rhythm. RESPIRATORY: No accessory muscle use. Clear to auscultation. Breath sounds equal bilaterally.Nasal Cannula 3 L/m GASTROINTESTINAL: Abdomen soft, non-tender, nondistended. No guarding. MUSCULOSKELETAL: Extremities without clubbing, cyanosis, or edema. No obvious deformities. NEUROLOGICAL: Awake and alert. RASS 0. No gross focal/sensory deficits. Follows commands in all 4 extremities. A/P Problem List: (1) Chronic anemia ICD Code: D64.9 - Anemia, unspecified Status: Acute (2) Idiopathic thrombocytopenia purpura ICD Code: D69.3 - Immune thrombocytopenic purpura Status: Acute (3) COPD (chronic obstructive pulmonary disease) ICD Code: J44.9 - Chronic obstructive pulmonary disease, unspecified Status: Acute (4) NISHANT (acute kidney injury) ICD Code: N17.9 - Acute kidney failure, unspecified Status: Acute (5) Chronic back pain ICD Code: M54.9 - Dorsalgia, unspecified; G89.29 - Other chronic pain Status: Acute (6) Hypertension ICD Code: I10 - Essential (primary) hypertension Status: Acute (7) Acute and chronic respiratory failure with hypoxia ICD Code: J96.21 - Acute and chronic respiratory failure with hypoxia Status: Acute (8) Abdominal pain ICD Code: R10.9 - Unspecified abdominal pain Assessment and Plan Assessment This is a 67-year-old female, with severe abdominal pain, noted air-fluid levels on CT. Differential includes ileus, small bowel obstruction, infection. A chin is medical history significant for multiple comorbidities to include COPD with O2 home dependency, ITP, and a history of DVT. Admit to ICU. Plan Plan by systems: Neurologic: Abdominal pain Chronic back pain 2/2 impression fractures Neurochecks per ICU protocol Dilaudid 1 mg every 4 hours when necessary for breakthrough pain scale 7-10 Ofirmev 1 g every 6 hours 2 days Tylenol 650 mg every 6 hours when necessary for pain or temperature greater than 100.5 Patient on home dose [place] for pain control will hold for now Respiratory: COPD Asthma Home O2 dependency Maintain O2 saturation greater than 92% FiO2 at 3 L/m nasal cannula, home O2 dependency Duo nebs every 4 hours when necessary for wheezing Continue inhalers formoterol, albuterol,Spiriva and budesonide- home medications Cardiovascular: Hypertension Maintain MAP greater than 65mmHg Hold patient's by mouth dosing of lisinopril Provide labetalol and hydralazine when necessary for SBP > 160 Renal: AK I Maintain Valencia -- Strict I/Os FEN/GI: Electrolyte derangement Possible ileus Possible SBO Abdominal pain Maintain NPO status NGT to LIWS Patient bolused with 2L NSS Continue IVF NS @ 125cc/hr GI consulted- discussed with Dr. Howell 11/16 CT scan abdomen/ pelvis Gen. surgery consulted-discussed case with Charu 11/16 CT abdomen and pelvis- Distended stomach. Fluid distended colon without dilated loops of small bowel. Place rectal tube Bowel Regimen Heme/ID: History of DVT 09/2017 Chronic ITP Hematology consulted Platelet count normally 40-70,000 platelet count 59,000 Patient had left popliteal embolectomy 09/2017, Dr. Mixon and was placed on Pradaxa, patient under the care of mold blower Dr. Reyna. Patient takes Xarelto 20mg/d Endocrine: Hyperglycemia of critical illness Glucose monitoring per ICU [id number] regimen -- SSI Prophylaxis: GI Prophylaxis Famotidine BID DVT Prophylaxis -- SCDs Patient's home med include Xarelto, will hold for now, await imaging studies/ and possible procedures Lines: Peripheral IVs 2. Central line if indicated Dispo: my billing statement This patient remains critically ill with one or more organ systems which are or may become a threat to life. I have spent in excess of 60 minutes discontinuously in the care and management of this patient. This time is exclusive of procedures, and includes, but is not limited to, evaluation of the patient, review of the medical record, discussions with family, consultants, nursing staff, or respiratory therapy, and documentation in the medical record. Glenis Flores MD Nov 18, 2017 13:14
[2017-11-18] MEDS: SODIUM BICARBONATE 8.4% INJ 150 MEQ in DEXTROSE 5% IN WATE 1000ML INJ 850 ML IV SCH ×4 (13:25→23:31)
[2017-11-18] MEDS ORDERED: DEXTROSE 5% IV PRN ×2 (13:30)
[2017-11-18] MEDS ORDERED: ARGATROBAN IV PRN ×2 (13:30)
[2017-11-18] MEDS ORDERED: WATER IV PRN ×2 (13:30)
[2017-11-18 13:42] LABS: MEAN CELL VOLUME 123.2 FL (80.0-100.0); MEAN CORPUSCULAR HEMOGLOBIN 40.7 PG (27.0-34.0); MEAN CORPUSCULAR HGB CONC 33.1 % (32.0-36.0); MEAN PLATELET VOLUME 7.7 FL (7.0-11.0); PLATELET COUNT 28 TH/MM3 (150-450); RED BLOOD COUNT 1.64 MIL/MM3 (4.00-5.30); RED CELL DISTRIBUTION WIDTH 14.8 % (11.6-17.2); WHITE BLOOD COUNT 3.9 TH/MM3 (4.0-11.0)
--- NOTE | 2017-11-18 13:49 | RADRPT ---
EXAM DATE/TIME: 11/18/2017 13:02 [facility] COMPARISON: CHEST SINGLE AP, November 16, 2017, 23:51. INDICATIONS : Respiratoy distress, very short of breath MEDICAL HISTORY : Hypertension. Chronic obstructive pulmonary disease. asthma, SURGICAL HISTORY : None. ENCOUNTER: Subsequent ACUITY: 2 days PAIN SCORE: Non-responsive. LOCATION: Bilateral chest FINDINGS: A single view of the chest demonstrates the lungs to be symmetrically aerated without evidence of mas s, infiltrate or effusion. The cardiomediastinal contours are unremarkable. Osseous structures are intact. CONCLUSION: No acute disease. No significant change has occurred. Keven Lake MD on November 18, 2017 at 13:46 Board Certified Radiologist. This report was verified electronically.
[2017-11-18 13:50] LABS: HEMATOCRIT 20.2 % (35.0-46.0); HEMOGLOBIN 6.7 GM/DL (11.6-15.3)
[2017-11-18 13:52] LABS: INTERNATIONAL NORMALIZED RATIO 1.5 RATIO; PROTHROMBIN TIME - PATIENT 14.8 SEC (9.8-11.6)
[2017-11-18] MEDS ORDERED: SODIUM CHLOR 0.9% 250 ML INJ 250 ML IV ONE (14:00)
[2017-11-18 14:07] LABS: ALBUMIN 3.8 GM/DL (3.4-5.0); BICARBONATE 21.7 MEQ/L (21.0-32.0); CALCIUM 6.9 MG/DL (8.5-10.1); CALCIUM-PROTEIN CORRECTED 7.5 MG/DL (8.5-10.1); MAGNESIUM 1.8 MG/DL (1.5-2.5); PHOSPHORUS 4.3 MG/DL (2.5-4.9); TOTAL BILIRUBIN ADULT 0.5 MG/DL (0.2-1.0)
[2017-11-18 14:23] LABS: BANDS 27 % (0-6); CORRECTED NUCLEATED RBC 1 /100 WBC (0-0); LYMPHOCYTES 24 % (9-44); METAMYELOCYTES 2 % (0-1); MONOCYTES 6 % (0-8); MYELOCYTES 2 % (0-0); NEUTROPHIL # MANUAL DIFF 2.7 TH/MM3 (1.8-7.7); NUCLEATED RED BLOOD CELL 1 (0-0); POLYS (SEG NEUTROPHILS) 39 % (16-70)
[2017-11-18 14:25] LABS: HOWELL-JOLLY BODIES PRESENT (NONE SEEN); OVALOCYTES 1+ (NORMAL); TOXIC GRANULATION 2+ (NORMAL)
[2017-11-18 14:26] LABS: KERATOCYTES OCC (NORMAL)
[2017-11-18] MEDS: ARGATROBAN INJ 250 MG in SODIUM CHLOR 0.9% 250 ML INJ 250 ML IV PRN (14:44)
--- NOTE | 2017-11-18 14:44 | PD.ONC.PN ---
Subjective Subjective Remarks Afebrile overnight. Patient resting in bed in restraints while nurse draws her labs. Per nurse, abdomen is less distended. Objective Data Date Time Temp Pulse Resp B/P (MAP) Pulse Ox O2 Delivery O2 Flow Rate FiO2 11/18/17 11:59 96 Nasal Cannula 4.00 11/18/17 08:00 105 11/18/17 00:15 94 Nasal Cannula 4.00 11/17/17 19:10 100 Nasal Cannula 3.00 11/17/17 18:00 98 11/17/17 16:00 98 11/18/17 11/18/17 11/18/17 07:00 15:00 23:00 Intake Total 3946 ml Output Total 360 ml Balance 3586 ml Result Diagram: 11/18/17 1328 11/18/17 1328 Laboratory Results Laboratory Tests Test 11/17/17 18:41 11/17/17 19:58 11/18/17 04:16 11/18/17 13:28 White Blood Count 6.1 TH/MM3 4.6 TH/MM3 3.9 TH/MM3 Red Blood Count 2.31 MIL/MM3 2.02 MIL/MM3 1.64 MIL/MM3 Hemoglobin 9.5 GM/DL 8.4 GM/DL 6.7 GM/DL Hematocrit 29.5 % 25.6 % 20.2 % Mean Corpuscular Volume 127.5 FL 126.5 FL 123.2 FL Mean Corpuscular Hemoglobin 40.9 PG 41.6 PG 40.7 PG Mean Corpuscular Hemoglobin Concent 32.1 % 32.9 % 33.1 % Red Cell Distribution Width 15.5 % 14.8 % 14.8 % Platelet Count 46 TH/MM3 32 TH/MM3 28 TH/MM3 Mean Platelet Volume 8.9 FL 8.6 FL 7.7 FL Prothrombin Time 12.5 SEC 14.0 SEC 14.8 SEC Prothromb Time International Ratio 1.2 RATIO 1.4 RATIO 1.5 RATIO Activated Partial Thromboplast Time 32.0 SEC 44.6 SEC Neutrophils (%) (Auto) 73.2 % Lymphocytes (%) (Auto) 18.2 % Monocytes (%) (Auto) 7.3 % Eosinophils (%) (Auto) 1.0 % Basophils (%) (Auto) 0.3 % Neutrophils # (Auto) 3.4 TH/MM3 Lymphocytes # (Auto) 0.8 TH/MM3 Monocytes # (Auto) 0.3 TH/MM3 Eosinophils # (Auto) 0.0 TH/MM3 Basophils # (Auto) 0.0 TH/MM3 CBC Comment DIFF FINAL Differential Comment FINAL DIFF MANUAL Blood Urea Nitrogen 45 MG/DL 50 MG/DL Creatinine 2.93 MG/DL 3.00 MG/DL Random Glucose 66 MG/DL 94 MG/DL Total Protein 5.8 GM/DL 6.0 GM/DL Albumin 3.2 GM/DL 3.8 GM/DL Calcium Level 6.6 MG/DL 6.9 MG/DL Phosphorus Level 5.9 MG/DL 4.3 MG/DL Magnesium Level 2.0 MG/DL 1.8 MG/DL Alkaline Phosphatase 115 U/L 79 U/L Aspartate Amino Transf (AST/SGOT) 83 U/L 100 U/L Alanine Aminotransferase (ALT/SGPT) 19 U/L 20 U/L Total Bilirubin 0.5 MG/DL 0.5 MG/DL Sodium Level 143 MEQ/L 143 MEQ/L Potassium Level 4.6 MEQ/L 4.1 MEQ/L Chloride Level 113 MEQ/L 108 MEQ/L Carbon Dioxide Level 16.1 MEQ/L 21.7 MEQ/L Anion Gap 14 MEQ/L 13 MEQ/L Estimat Glomerular Filtration Rate 16 ML/MIN 15 ML/MIN Lactic Acid Level 1.5 mmol/L 1.7 mmol/L Protein Corrected Calcium 7.2 MG/DL 7.5 MG/DL Random Vancomycin Level 16.6 COMMENT Differential Total Cells Counted 100 Neutrophils % (Manual) 39 % Band Neutrophils % 27 % Lymphocytes % 24 % Monocytes % 6 % Neutrophils # (Manual) 2.7 TH/MM3 Metamyelocytes 2 % Myelocytes 2 % Nucleated Red Blood Cells 1 /100 WBC Toxic Granulation 2+ Platelet Estimate LOW Platelet Morphology Comment NORMAL Ovalocytes 1+ [place] Bodies PRESENT Keratocytes OCC Culture Results Microbiology Date/Time Source Procedure Growth Status 11/16/17 23:45 Blood Peripheral Aerobic Blood Culture - Preliminary NO GROWTH IN 2 DAYS Resulted 11/16/17 23:45 Blood Peripheral Anaerobic Blood Culture - Preliminary NO GROWTH IN 2 DAYS Resulted 11/16/17 23:42 Blood Peripheral Aerobic Blood Culture - Preliminary NO GROWTH IN 2 DAYS Resulted 11/16/17 23:42 Blood Peripheral Anaerobic Blood Culture - Preliminary NO GROWTH IN 2 DAYS Resulted Imaging Studies Last 24 hours Impressions Chest X-Ray 11/18/17 0000 Signed Impressions: Service Date/Time: Saturday, November 18, 2017 13:02 - CONCLUSION: No acute disease. No significant change has occurred. Keven Lake MD Administered Medications Medications (Trade) Dose Ordered Sig/Colton Route PRN Reason Start Time Stop Time Status Last Admin Dose Admin Sodium Chloride (NS Flush) 2 ml UNSCH PRN IV FLUSH FLUSH AFTER USING IV ACCESS 11/17/17 06:45 11/17/17 08:29 Sodium Chloride (NS Flush) 2 ml BID IV FLUSH 11/17/17 09:00 11/18/17 08:14 Famotidine (Pepcid Inj) 20 mg Q12HR IV PUSH 11/17/17 09:00 11/18/17 08:14 Albuterol/ Ipratropium (Duoneb Neb) 1 ampule Q4HR NEB PRN INH WHEEZING 11/17/17 06:45 11/18/17 11:58 Miscellaneous Information 1 Q361D XX 11/17/17 06:45 11/17/17 06:45 Chlorhexidine Gluconate (Chlorhexidine 2% Cloth) 3 pack Taper DAILY@04 TOP 11/18/17 04:00 11/14/18 03:59 11/18/17 03:53 Senna/Docusate Sodium (Rita-Colace) 1 tab BID PO 11/17/17 09:00 11/18/17 08:14 Sennosides (Senokot) 17.2 mg Q12H PRN PO Moderate constipation 11/17/17 06:45 11/17/17 09:11 Lactulose (Lactulose Liq) 30 ml DAILY PRN PO SEVERE CONSITIPATION 11/17/17 06:45 11/17/17 09:11 Hydromorphone HCl (Dilaudid Pf Inj) 1 mg Q4H PRN IV PUSH PAIN SCALE 7 TO 10 11/17/17 08:15 11/18/17 12:36 Albuterol Sulfate (Albuterol Neb) 2.5 mg Q4HR NEB PRN NEB SHORTNESS OF BREATH 11/17/17 07:45 11/18/17 00:23 Cefepime HCl 2000 mg/Sodium Chloride 100 ml @ 200 mls/hr Q24H IV 11/18/17 09:00 11/18/17 08:15 Metronidazole 100 ml @ 100 mls/hr Q8H IV 11/17/17 20:00 11/18/17 11:43 Dextrose/Sodium Chloride 1,000 ml @ 125 mls/hr Q8H IV 11/18/17 11:00 11/18/17 11:44 Sodium Bicarbonate 150 meq/Dextrose 1,000 ml @ 100 mls/hr Q10H IV 11/18/17 13:30 11/18/17 13:25 Objective Remarks GENERAL: chronically ill female, sitting up in bed in nad. SKIN: Warm and dry. HEAD: Normocephalic. EYES: No injection or drainage. NECK: Supple, trachea midline. CARDIOVASCULAR: Regular rate and rhythm RESPIRATORY: Breath sounds equal bilaterally. No accessory muscle use. GASTROINTESTINAL: Abdomen soft, non-tender, nondistended. EXTREMITIES: No cyanosis NEUROLOGICAL: awake and alert. normal speech. moving all extremities. Assessment/Plan Problem List: (1) Idiopathic thrombocytopenia purpura ICD Codes: D69.3 - Immune thrombocytopenic purpura Status: Acute Plan: --had splenectomy in 2009. --was treated with Nplate in the past with good response. --platelet count has been fluctuating between 40,000-70,000. --no indication to start treatment for the idiopathic thrombocytopenic purpura at this point. (2) Arterial occlusion ICD Codes: I70.90 - Unspecified atherosclerosis Plan: --started on Argatroban on 11/18 --History of left popliteal arterial occlusion, likely an embolic event. --had embolectomy in September of this year. then started on Pradaxa, but later switched to Xarelto. --presented with abdominal pain and could have ischemic bowel (3) Abdominal pain ICD Codes: R10.9 - Unspecified abdominal pain Plan: --presented with acute severe abdominal pain. --CT did not show any bowel obstruction. --Ultrasound also negative for occlusion or stenosis. 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 h/o Chronic anemia. Chronic back pain. Multiple compression fractures. Chronic obstructive pulmonary disease. Hypertension. Left popliteal arterial occlusion. Plan 1. check fibrinogen, monitor coags 2. transfuse pRBC for hgb 6.7 3. check stool occult blood Attending Statement The exam, history, and the medical decision-making described in the above note were completed with the assistance of the mid-level provider. I reviewed and agree with the findings presented. I attest that I had a [id number] encounter with the patient on the same day, and personally performed and documented my assessment and findings in the medical record. No report of bleeding. No melena noted. Abdominal pain slightly better. Hgb and platelet trended lower. Heparin was stopped and Argatroban started. No known h/o HIT. Need to monitor closely for bleeding. She likely has consumptive process that cause further drop in platelet. Monitor CBC closely. May have to start treatment of ITP if platelet continue to drop. Keke Foster Nov 18, 2017 14:43 Braden Luong MD Nov 18, 2017 16:08
[2017-11-18 15:52] LABS: D-DIMER 15.16 MG/L FEU (0.00-0.50)
--- NOTE | 2017-11-18 15:54 | HHI.CCPN ---
Subjective Remarks/Hospital Course This is a 67-year-old female that presented to [facility], by private transportation for evaluation of severe abdominal pain. Patient states of the past week she has had constipation so last evening took laxatives ( Senokot) x 3 days, and then today had large bowel movement multiple times with development of severe lower abdominal pain. Patient had subsequently noted some abdominal distention. Patient states her abdomen is exquisitely tender with any movement. Patient also complains of some epigastric pain. 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 No report of hematemesis or coffee-ground emesis. Patient states after bowel movements no report of melena or hematochezia. Patient rates her abdominal pain 10/10 in intensity, without relief of narcotics. The patient was transferred to [facility] , critical care medicine was consulted. Subjective: 11/18: Overnight the patient was known to be oliguric, the patient received approximately 5 L of normal saline , and 500 cc of 5% albumin during the night. NG tube output approximately 700 cc since admission. The patient was noted to be mildly confused this a.m. and progressively worsened. O2 saturation was 100% ,stat ABGs performed, metabolic acidosis with a bicarbonate level of 16. Patient received 2 A of sodium bicarbonate and bicarbonate infusion was initiated. Patient also was noted to be hypocalcemic this a.m. and received 2 g of calcium gluconate. The patient was started on Argatroban infusion after discussion with Dr. Howell, plan for endoscopy tomorrow . The patient was previously on Xarelto for DVT prophylaxis.Repeat labs performed early this afternoon revealed hemoglobin of 6.7, 1 unit of PRBC being transfused. She required restraints, for patient safety. Repeat labs pending this evening posttransfusion. Objective Vital Signs Date Time Temp Pulse Resp B/P (MAP) Pulse Ox O2 Delivery O2 Flow Rate FiO2 11/18/17 15:04 97.8 102 22 124/60 100 11/18/17 11:59 Nasal Cannula 4.00 Intake and Output 11/18/17 11/18/17 11/19/17 08:00 16:00 00:00 Intake Total 3946 ml 10 ml Output Total 360 ml Balance 3586 ml 10 ml Result Diagram: 11/18/17 1328 11/18/17 1328 Imaging Last Impressions Abdomen/Pelvis CT 11/17/17 0000 Signed Impressions: Service Date/Time: Friday, November 17, 2017 01:08 - CONCLUSION: 1. Distended stomach. 2. Fluid distended colon without dilated loops of small bowel. Víctor Bates MD Chest X-Ray 11/16/17 2326 Signed Impressions: Service Date/Time: Thursday, November 16, 2017 23:51 - CONCLUSION: Hyperaerated lungs. No infiltrates seen. Víctor Bates MD Objective Remarks GENERAL: This is a pale thin female writhing in bed, secondary to abdominal pain SKIN: Warm and dry. Pale HEAD: Atraumatic. Normocephalic. EYES: Pupils equal and round. No scleral icterus. No injection or drainage. ENT: No nasal bleeding or discharge. Mucous membranes pink and moist. NG tube to LIWS-700cc NECK: Trachea midline. No JVD. CARDIOVASCULAR: Tachycardic rate, regular rhythm. RESPIRATORY: No accessory muscle use. Clear to auscultation. Breath sounds equal bilaterally.Nasal Cannula 3 L/m GASTROINTESTINAL: Abdomen soft, non-tender, nondistended. No guarding. MUSCULOSKELETAL: Extremities without clubbing, cyanosis, or edema. No obvious deformities. NEUROLOGICAL: Confused, GCS 14. RASS 0. No gross focal/sensory deficits. Follows commands in all 4 extremities. A/P Problem List: (1) Chronic anemia ICD Code: D64.9 - Anemia, unspecified Status: Acute (2) Idiopathic thrombocytopenia purpura ICD Code: D69.3 - Immune thrombocytopenic purpura Status: Acute (3) COPD (chronic obstructive pulmonary disease) ICD Code: J44.9 - Chronic obstructive pulmonary disease, unspecified Status: Acute (4) NISHANT (acute kidney injury) ICD Code: N17.9 - Acute kidney failure, unspecified Status: Acute (5) Chronic back pain ICD Code: M54.9 - Dorsalgia, unspecified; G89.29 - Other chronic pain Status: Acute (6) Hypertension ICD Code: I10 - Essential (primary) hypertension Status: Acute (7) Acute and chronic respiratory failure with hypoxia ICD Code: J96.21 - Acute and chronic respiratory failure with hypoxia Status: Acute (8) Abdominal pain ICD Code: R10.9 - Unspecified abdominal pain (9) Metabolic acidemia ICD Code: E87.2 - Acidosis Assessment and Plan Assessment Plan Plan by systems: Neurologic: Abdominal pain Chronic back pain 2/2 impression fractures Metabolic encephalopathy Neurochecks per ICU protocol Dilaudid 1 mg every 4 hours when necessary for breakthrough pain scale 7-10 Ofirmev 1 g every 6 hours 2 days Tylenol 650 mg every 6 hours when necessary for pain or temperature greater than 100.5 Patient on home dose [place] for pain control will hold for now Respiratory: COPD Asthma Home O2 dependency Maintain O2 saturation greater than 92% FiO2 at 3 L/m nasal cannula, home O2 dependency Duo nebs every 4 hours when necessary for wheezing Continue inhalers formoterol, albuterol,Spiriva and budesonide- home medications 11/18 ABG- 7.23/35/112/14/-11.3-sodium bicarbonate initiated Cardiovascular: Hypertension Sinus tachycardia Maintain MAP greater than 65mmHg Hold patient's by mouth dosing of lisinopril Provide labetalol and hydralazine when necessary for SBP > 160 Renal: AK I Maintain [place] -- Strict I/Os FEN/GI: Electrolyte derangement Possible ileus Abdominal pain Metabolic acidosis Maintain NPO status NGT to LIWS 11/17 Patient bolused with 2L NSS on admission, 11/17 (pm)-patient received 5 L of normal saline Begin NaHCo3 150meq/850cc @ 100cc/hr. F/U Repeat ABG GI following - Dr. Howell, plan for endoscopy in a.m.-okay to begin Argatroban must be discontinued 6 hours prior to procedure 11/17 Gen. surgery consulted-discussed case with Charu 11/16 CT abdomen and pelvis- Distended stomach. Fluid distended colon without dilated loops of small bowel. Rectal tube Bowel Regimen Hypocalcemia-2 g calcium gluconate IV . Follow up repeat BMP Heme/ID: History of DVT 09/2017 Chronic ITP Hematology following-Dr. Luong Platelet count normally 40-70,000 platelet count 59,000 Patient had left popliteal embolectomy 09/2017, Dr. Mixon and was placed on Pradaxa, patient under the care of nurse coordinator Dr. Reyna. Patient takes Xarelto 20mg/d (on hold) Argatroban infusion initiated Plt count 29 Endocrine: Hyperglycemia of critical illness Glucose monitoring per ICU [id number] regimen -- SSI Prophylaxis: GI Prophylaxis Famotidine BID DVT Prophylaxis -- SCDs Patient's home med include Xarelto, discussed with Dr. Howell plan procedure tomorrow, okay to initiate Argatroban now, will discontinue 6 hours prior to the procedure Lines: Peripheral IVs 2. Central line if indicated Dispo: my billing statement This patient remains critically ill with one or more organ systems which are or may become a threat to life. I have spent in excess of 49 minutes discontinuously in the care and management of this patient. This time is exclusive of procedures, and includes, but is not limited to, evaluation of the patient, review of the medical record, discussions with family, consultants, nursing staff, or respiratory therapy, and documentation in the medical record. 11/18-extensive discussion with Mr. Cruz patient's . Updated him on the patient's medical status. All questions answered. Discussed with [facility]ILDC[facility] AIDE at bedside (Martha) Physician Glenis Olivera MD Nov 18, 2017 15:54
[2017-11-18] MEDS ORDERED: CALCIUM GLUCONATE INJ 2 GM in DEXTROSE 5% IN WATER 100ML INJ 100 ML IV ONE ×2 (16:00)
[2017-11-18 17:14] LABS: ALBUMIN 3.9 GM/DL (3.4-5.0); BICARBONATE 20.2 MEQ/L (21.0-32.0); CALCIUM 6.6 MG/DL (8.5-10.1); CREATININE 2.99 MG/DL (0.50-1.00); TOTAL BILIRUBIN ADULT 0.6 MG/DL (0.2-1.0); TOTAL PROTEIN 6.3 GM/DL (6.4-8.2)
--- NOTE | 2017-11-18 17:32 | HHI.PR ---
cc: Eriberto Box MD Subjective Subjective Notes Minimally responsive Pulled NGT out Objective Vitals/I&O Vital Signs Date Time Temp Pulse Resp B/P (MAP) Pulse Ox O2 Delivery O2 Flow Rate FiO2 11/18/17 15:04 97.8 102 22 124/60 100 11/18/17 11:59 Nasal Cannula 4.00 Labs Laboratory Tests Test 11/17/17 18:41 11/17/17 19:58 11/18/17 04:16 11/18/17 13:28 White Blood Count 6.1 4.6 3.9 Red Blood Count 2.31 2.02 1.64 Hemoglobin 9.5 8.4 6.7 Hematocrit 29.5 25.6 20.2 Mean Corpuscular Volume 127.5 126.5 123.2 Mean Corpuscular Hemoglobin 40.9 41.6 40.7 Mean Corpuscular Hemoglobin Concent 32.1 32.9 33.1 Red Cell Distribution Width 15.5 14.8 14.8 Platelet Count 46 32 28 Mean Platelet Volume 8.9 8.6 7.7 Prothrombin Time 12.5 14.0 14.8 Prothromb Time International Ratio 1.2 1.4 1.5 Activated Partial Thromboplast Time 32.0 44.6 Neutrophils (%) (Auto) 73.2 Lymphocytes (%) (Auto) 18.2 Monocytes (%) (Auto) 7.3 Eosinophils (%) (Auto) 1.0 Basophils (%) (Auto) 0.3 Neutrophils # (Auto) 3.4 Lymphocytes # (Auto) 0.8 Monocytes # (Auto) 0.3 Eosinophils # (Auto) 0.0 Basophils # (Auto) 0.0 CBC Comment DIFF FINAL Differential Comment FINAL DIFF MANUAL Blood Urea Nitrogen 45 50 Creatinine 2.93 3.00 Random Glucose 66 94 Total Protein 5.8 6.0 Albumin 3.2 3.8 Calcium Level 6.6 6.9 Phosphorus Level 5.9 4.3 Magnesium Level 2.0 1.8 Alkaline Phosphatase 115 79 Aspartate Amino Transf (AST/SGOT) 83 100 Alanine Aminotransferase (ALT/SGPT) 19 20 Total Bilirubin 0.5 0.5 Sodium Level 143 143 Potassium Level 4.6 4.1 Chloride Level 113 108 Carbon Dioxide Level 16.1 21.7 Anion Gap 14 13 Estimat Glomerular Filtration Rate 16 15 Lactic Acid Level 1.5 1.7 Protein Corrected Calcium 7.2 7.5 Random Vancomycin Level 16.6 Differential Total Cells Counted 100 Neutrophils % (Manual) 39 Band Neutrophils % 27 Lymphocytes % 24 Monocytes % 6 Neutrophils # (Manual) 2.7 Metamyelocytes 2 Myelocytes 2 Nucleated Red Blood Cells 1 Toxic Granulation 2+ Platelet Estimate LOW Platelet Morphology Comment NORMAL Ovalocytes 1+ [place] Bodies PRESENT Keratocytes OCC Fibrinogen 480 D-Dimer Quantitative (PE/DVT) 15.16 Test 11/18/17 15:38 11/18/17 17:00 Activated Partial Thromboplast Time 63.2 Blood Urea Nitrogen 49 Creatinine 2.99 Random Glucose 86 Total Protein 6.3 Albumin 3.9 Calcium Level 6.6 Alkaline Phosphatase 86 Aspartate Amino Transf (AST/SGOT) 107 Alanine Aminotransferase (ALT/SGPT) 21 Total Bilirubin 0.6 Sodium Level 142 Potassium Level 3.8 Chloride Level 107 Carbon Dioxide Level 20.2 Anion Gap 15 Estimat Glomerular Filtration Rate 16 Protein Corrected Calcium 7.0 Date/Time Source Procedure Growth Status 11/16/17 23:45 Blood Peripheral Aerobic Blood Culture - Preliminary NO GROWTH IN 2 DAYS Resulted 11/16/17 23:45 Blood Peripheral Anaerobic Blood Culture - Preliminary NO GROWTH IN 2 DAYS Resulted 11/18/17 14:25 Stool Stool Stool Occult Blood (KIM) Pending Received Radiology Last 48 hours Impressions Abdomen/Pelvis CT 11/17/17 0000 Signed Impressions: Service Date/Time: Friday, November 17, 2017 01:08 - CONCLUSION: 1. Distended stomach. 2. Fluid distended colon without dilated loops of small bowel. Víctor Bates MD Abdomen X-Ray 11/17/17 0000 Signed Impressions: Service Date/Time: Friday, November 17, 2017 07:37 - CONCLUSION: No bowel obstruction, ileus or perforation. Swapnil Saldaña MD Abdomen Ultrasound 11/17/17 0000 Signed Impressions: Service Date/Time: Friday, November 17, 2017 08:01 - CONCLUSION: Negative for occlusion or significant stenosis. Luis A Castillo MD FACR Chest X-Ray 11/16/17 2326 Signed Impressions: Service Date/Time: Thursday, November 16, 2017 23:51 - CONCLUSION: Hyperaerated lungs. No infiltrates seen. Víctor Bates MD Cardiovascular: Regular Lungs: Clear Abdomen: Non-tender Extremities: No edema A/P Assessment and Plan 67 year old female with abdominal pain; lactic acidosis -Repeat CT reviewed--- no acute process -NPO -NGT to LIWS -Maintain rectal tube -Continue to watch CBC -Hematology following --- on Argatroban -No acute surgical intervention needed at this time Attending Statement The exam, history, and the medical decision-making described in the above note were completed with the assistance of the mid-level provider. I reviewed and agree with the findings presented. I attest that I had a [id number] encounter with the patient on the same day, and personally performed and documented my assessment and findings in the medical record. patient seen examined today, abdomen soft without peritonitis or rebound tenderness CT scan reviewed, no acute surgical process consider workup of colon, ? colitis doubt SBO will follow Nicky Neil/Deck Molder MORGAN Nov 18, 2017 17:32 Eriberto Box MD Nov 19, 2017 09:51
[2017-11-18 17:36] LABS: HEMATOCRIT 23.8 % (35.0-46.0)
[2017-11-18 22:28] LABS: HEMATOCRIT 27.7 % (35.0-46.0); HEMOGLOBIN 9.4 GM/DL (11.6-15.3); MEAN CELL VOLUME 112.2 FL (80.0-100.0); MEAN CORPUSCULAR HEMOGLOBIN 38.1 PG (27.0-34.0); MEAN PLATELET VOLUME 9.2 FL (7.0-11.0); PLATELET COUNT 26 TH/MM3 (150-450); RED BLOOD COUNT 2.47 MIL/MM3 (4.00-5.30); RED CELL DISTRIBUTION WIDTH 24.2 % (11.6-17.2); WHITE BLOOD COUNT 4.2 TH/MM3 (4.0-11.0)
[2017-11-18 23:15] LABS: BICARBONATE 19.9 MEQ/L (21.0-32.0); CALCIUM 7.5 MG/DL (8.5-10.1); CREATININE 2.85 MG/DL (0.50-1.00)
[2017-11-19] VITALS (10 sets, daily range): BP systolic 170; BP diastolic 117; PULSE 107–137; RESP 41; TEMP 99.3; O2SAT 98–100
[2017-11-19] MEDS: DEXT 5%-NACL 0.45% 1000 ML INJ 1,000 ML IV SCH (01:59)
[2017-11-19] MEDS: CHLORHEXIDINE GLUCONATE 2 % 1 PACK (2 CLOTHS) TOP SCH (02:47)
[2017-11-19] MEDS: metroNIDAZOLE 500 MG INJ 100 ML IV SCH ×3 (02:47→20:16)
[2017-11-19] MEDS: RESP: ALBUTEROL 2.5 MG/IPRATROPIUM 0.5 MG NEB (PRN) INH ×2 (03:49→12:31)
--- NOTE | 2017-11-19 05:01 | RADRPT ---
EXAM DATE/TIME: 11/19/2017 03:16 [place] COMPARISON: CHEST SINGLE AP, November 18, 2017, 13:02. INDICATIONS : Shortness of breath. MEDICAL HISTORY : Hypertension. Chronic obstructive pulmonary disease. Asthma. SURGICAL HISTORY : None. ENCOUNTER: Subsequent ACUITY: 3 days PAIN SCORE: Non-responsive. LOCATION: Bilateral chest FINDINGS: Gastric tube tip and side-port project within the stomach. Patchy areas of infiltrate in the right p erihilar region similar to prior. Remainder of the lungs are clear. Both hemidiaphragms are well de lineated. The heart is normal in size. CONCLUSION: Stable right perihilar infiltrates. Víctor Bates MD on November 19, 2017 at 4:59 Board Certified Radiologist. This report was verified electronically.
[2017-11-19 07:08] LABS: CALCIUM 7.5 MG/DL (8.5-10.1); CALCIUM-PROTEIN CORRECTED 7.8 MG/DL (8.5-10.1); TOTAL PROTEIN 6.5 GM/DL (6.4-8.2)
--- NOTE | 2017-11-19 07:12 | HHI.CCPN ---
Subjective Remarks/Hospital Course This is a 67-year-old female that presented to [facility], by private transportation for evaluation of severe abdominal pain. Patient states of the past week she has had constipation so last evening took laxatives ( Senokot) x 3 days, and then today had large bowel movement multiple times with development of severe lower abdominal pain. Patient had subsequently noted some abdominal distention. Patient states her abdomen is exquisitely tender with any movement. Patient also complains of some epigastric pain. 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 No report of hematemesis or coffee-ground emesis. Patient states after bowel movements no report of melena or hematochezia. Patient rates her abdominal pain 10/10 in intensity, without relief of narcotics. The patient was transferred to [facility] , critical care medicine was consulted. Subjective: 11/18: Overnight the patient was known to be oliguric, the patient received approximately 5 L of normal saline , and 500 cc of 5% albumin during the night. NG tube output approximately 700 cc since admission. The patient was noted to be mildly confused this a.m. and progressively worsened. O2 saturation was 100% ,stat ABGs performed, metabolic acidosis with a bicarbonate level of 16. Patient received 2 A of sodium bicarbonate and bicarbonate infusion was initiated. Patient also was noted to be hypocalcemic this a.m. and received 2 g of calcium gluconate. The patient was started on Argatroban infusion after discussion with Dr. Howell, plan for endoscopy tomorrow . The patient was previously on Xarelto for DVT prophylaxis.Repeat labs performed early this afternoon revealed hemoglobin of 6.7, 1 unit of PRBC being transfused. She required restraints, for patient safety. Repeat labs pending this evening posttransfusion. 11/19: Afebrile. Last evening the patient became more confused metabolic acidosis, placed on sodium bicarbonate infusion, now corrected. Patient alert, following commands. Sodium bicarbonate infusion discontinued. Patient noted to be severely anemic with hemoglobin of 6.2 received 1 unit of PRBCs, last hemoglobin 9.4, stable. Continued serial monitoring of H&H labs pending this a.m.. Patient noted to have improvement in urine output overnight. EGD placed on hold. Objective Vital Signs Date Time Temp Pulse Resp B/P (MAP) Pulse Ox O2 Delivery O2 Flow Rate FiO2 11/18/17 19:10 97 Nasal Cannula 3.00 11/18/17 18:00 100 11/18/17 15:20 98.3 20 138/69 Intake and Output 11/19/17 11/19/17 11/20/17 08:00 16:00 00:00 Intake Total 708.1 ml Output Total 875 ml Balance -166.9 ml Result Diagram: 11/18/17 2140 11/18/17 2140 Other Results Microbiology Date/Time Source Procedure Growth Status 11/18/17 14:25 Stool Stool Stool Occult Blood (KIM) - Final HEMOCCULT POSITIVE Complete Laboratory Tests Test 11/18/17 12:45 11/18/17 17:25 11/18/17 21:20 11/19/17 06:43 Blood Gas Puncture Site LT RADIAL LT RADIAL RT RADIAL RT RADIAL Blood Gas Patient Temperature 98.6 98.6 98.6 98.6 Blood Gas HCO3 15 mmol/L (22-26) 19 mmol/L (22-26) 20 mmol/L (22-26) 26 mmol/L (22-26) Blood Gas Base Excess -11.3 mmol/L (-2-2) -6.8 mmol/L (-2-2) -5.0 mmol/L (-2-2) 1.6 mmol/L (-2-2) Blood Gas Oxygen Saturation 95 % (90-100) 93 % (90-100) 96 % (90-100) 96 % ( 90-100) Arterial Blood pH 7.24 (7.380-7.420) 7.29 (7.380-7.420) 7.30 (7.380-7.420) 7.41 (7.380-7.420) Arterial Blood Partial Pressure CO2 36 mmHg (38-42) 41 mmHg (38-42) 42 mmHg (38-42) 42 mmHg (38-42) Arterial Blood Partial Pressure O2 112 mmHg (61-120) 80 mmHg (61-120) 136 mmHg (61-120) 107 mmHg (61-120) Arterial Blood Oxygen Content 9.5 Vol % (12.0-20.0) 10.2 Vol % (12.0-20.0) 12.5 Vol % (12.0-20.0) 13.6 Vol % (12.0-20.0) Arterial Blood Carboxyhemoglobin 0.8 % (0-4) 1.1 % (0-4) 0.9 % (0-4) 1.0 % (0-4) Arterial Blood Methemoglobin 1.9 % (0-2) 1.4 % (0-2) 1.5 % (0-2) 1.5 % (0-2) Blood Gas Hemoglobin 7.0 G/DL (12.0-16.0) 7.7 G/DL (12.0-16.0) 9.1 G/DL (12.0-16.0) 10.0 G/DL (12.0-16.0) Oxygen Delivery Device NASAL CANNULA NASAL CANNULA NASAL CANNULA NASAL CANNULA Blood Gas Liter Flow 3 L/M 3 L/M 3 L/M 3 L/M Blood Gas Inspired Oxygen 32 % 32 % Imaging Last Impressions Chest X-Ray 11/19/17 0600 Signed Impressions: Service Date/Time: Sunday, November 19, 2017 03:16 - CONCLUSION: Stable right perihilar infiltrates. Víctor Bates MD Abdomen/Pelvis CT 11/17/17 0000 Signed Impressions: Service Date/Time: Friday, November 17, 2017 22:11 - CONCLUSION: 1. Diffuse gas and fluid distention of bowel and stomach most characteristic of a diffuse ileus. No free air. Small amount of free fluid. Mild anasarca. Roby Brito MD Abdomen X-Ray 11/17/17 0000 Signed Impressions: Service Date/Time: Friday, November 17, 2017 07:37 - CONCLUSION: No bowel obstruction, ileus or perforation. Swapnil Saldaña MD Abdomen Ultrasound 11/17/17 0000 Signed Impressions: Service Date/Time: Friday, November 17, 2017 08:01 - CONCLUSION: Negative for occlusion or significant stenosis. Luis A Castillo MD FACR Last Impressions Abdomen/Pelvis CT 11/17/17 0000 Signed Impressions: Service Date/Time: Friday, November 17, 2017 01:08 - CONCLUSION: 1. Distended stomach. 2. Fluid distended colon without dilated loops of small bowel. Víctor Bates MD Chest X-Ray 11/16/17 [id number] Signed Impressions: Service Date/Time: Thursday, November 16, 2017 23:51 - CONCLUSION: Hyperaerated lungs. No infiltrates seen. Víctor Bates MD Objective Remarks GENERAL: This is a pale thin female alert, denies pain at this time SKIN: Warm and dry. Pale HEAD: Atraumatic. Normocephalic. EYES: Pupils equal and round. No scleral icterus. No injection or drainage. ENT: No nasal bleeding or discharge. Mucous membranes pink and moist. NG tube to LIWS-300cc- bilious NECK: Trachea midline. No JVD. CARDIOVASCULAR: Tachycardic rate, regular rhythm. RESPIRATORY: No accessory muscle use. Clear to auscultation. Breath sounds equal bilaterally.Nasal Cannula 3 L/m GASTROINTESTINAL: Abdomen soft, non-tender, nondistended. No guarding. MUSCULOSKELETAL: Extremities without clubbing, cyanosis, or edema. No obvious deformities. NEUROLOGICAL: Awake and alert GCS 15. RASS 0. No gross focal/sensory deficits. Follows commands in all 4 extremities. A/P Problem List: (1) Chronic anemia ICD Code: D64.9 - Anemia, unspecified Status: Acute (2) Idiopathic thrombocytopenia purpura ICD Code: D69.3 - Immune thrombocytopenic purpura Status: Acute (3) COPD (chronic obstructive pulmonary disease) ICD Code: J44.9 - Chronic obstructive pulmonary disease, unspecified Status: Acute (4) NISHANT (acute kidney injury) ICD Code: N17.9 - Acute kidney failure, unspecified Status: Acute (5) Chronic back pain ICD Code: M54.9 - Dorsalgia, unspecified; G89.29 - Other chronic pain Status: Acute (6) Hypertension ICD Code: I10 - Essential (primary) hypertension Status: Acute (7) Acute and chronic respiratory failure with hypoxia ICD Code: J96.21 - Acute and chronic respiratory failure with hypoxia Status: Acute (8) Abdominal pain ICD Code: R10.9 - Unspecified abdominal pain Status: Acute (9) Metabolic acidemia ICD Code: E87.2 - Acidosis Status: Acute Assessment and Plan Assessment Plan Plan by systems: Neurologic: Abdominal pain Chronic back pain 2/2 impression fractures Metabolic encephalopathy-resolved Neurochecks per ICU protocol Dilaudid 0.5 mg every 4 hours when necessary for breakthrough pain scale 7-10 Ofirmev 1 g every 6 hours 2 days Tylenol 650 mg every 6 hours when necessary for pain or temperature greater than 100.5 Patient on home dose Willard for pain control will hold for now Respiratory: COPD Asthma Home O2 dependency Maintain O2 saturation greater than 92% FiO2 at 3 L/m nasal cannula, home O2 dependency Duo nebs every 4 hours when necessary for wheezing Continue inhalers formoterol, albuterol,Spiriva and budesonide- home medications 11/18 ABG- 7.23/35/112/14/-11.3-sodium bicarbonate initiated 11/19 Sodium bicarbonate infusion discontinued-ABG 7.40/41/107/25/1.6 Begin incentive spirometry Cardiovascular: Hypertension Sinus tachycardia Maintain MAP greater than 65mmHg Hold patient's by mouth dosing of lisinopril Provide labetalol and hydralazine when necessary for SBP > 160 HR 104 Renal: AK I Maintain [place] Urine output last 24 hours improved 800 cc -- Strict I/Os FEN/GI: Electrolyte derangement Possible ileus Abdominal pain Metabolic acidosis-resolved Maintain NPO status NGT to LIWS 11/17 Patient bolused with 2L NSS on admission, 11/17 (pm)-patient received 5 L of normal saline Begin NaHCo3 150meq/850cc @ 100cc/hr. F/U Repeat ABG GI following - Dr. Howell, plan for endoscopy in a.m.-okay to begin Argatroban must be discontinued 6 hours prior to procedure 11/17 Gen. surgery consulted-discussed case with Charu 11/16 CT abdomen and pelvis- Distended stomach. Fluid distended colon without dilated loops of small bowel. 11/17 Rectal tube Bowel Regimen 11/18 Hypocalcemia-2 g calcium gluconate IV . Follow up repeat BMP Creatinine slightly improved. PPN initiated/renal formula-discussed with Dr. Howell EGD pending Heme/ID: History of DVT 09/2017 Chronic ITP Hematology following-Dr. Luong.11/17, 11/18 Transfused 1u PRBC Platelet count normally 40-70,000 platelet count 59,000 Patient had left popliteal embolectomy 09/2017, Dr. Mixon and was placed on Pradaxa, patient under the care of hook and eye sewing machine operator Dr. Reyna. 11/18 Patient takes Xarelto 20mg/d (on hold) Argatroban infusion initiated Plt count 29 Endocrine: Hyperglycemia of critical illness Glucose monitoring per ICU [id number] regimen -- SSI Prophylaxis: GI Prophylaxis Famotidine BID DVT Prophylaxis -- SCDs Patient's home med include Xarelto, discussed with danyelle Robles to initiate Argatroban now, will discontinue 6 hours prior to the procedure Lines: Peripheral IVs 2. Central line if indicated Dispo: my billing statement This patient remains critically ill with one or more organ systems which are or may become a threat to life. I have spent in excess of 30 minutes discontinuously in the care and management of this patient. This time is exclusive of procedures, and includes, but is not limited to, evaluation of the patient, review of the medical record, discussions with family, consultants, nursing staff, or respiratory therapy, and documentation in the medical record. 11/19- Discussed with dr. Luong to continue Argatroban, EGD now postponed discussed with Dr. Howell , we will initiate PPN , and WEIGH MACHINE OPERATOR at bedside (Martha ) Physician Glenis Flores Problem Qualifiers (1) Abdominal pain: Qualified Codes: R10.84 - Generalized abdominal pain Glenis Flores MD Nov 19, 2017 07:12
[2017-11-19] MEDS ORDERED: CALCIUM GLUCONATE INJ 2 GM in SODIUM CHLORIDE 0.9% INJ 100 ML IV ONE (07:30)
[2017-11-19] MEDS: CEFEPIME INJ 2,000 MG in SODIUM CHLORIDE 0.9% INJ 100 ML IV SCH (07:54)
[2017-11-19] MEDS: DOCUSATE SODIUM 50 MG/SENNA 8.6 MG TAB PO SCH ×2 (07:55→20:17)
[2017-11-19] MEDS: FAMOTIDINE 20 MG/2 ML VIAL IV PUSH SCH ×2 (07:55→20:17)
[2017-11-19] MEDS: SODIUM CHLORIDE 0.9% FLUSH 10 ML FLUSH IV FLUSH SCH ×2 (07:55→20:17)
[2017-11-19 08:04] LABS: AUTOMATED NEUTROPHIL # 4.5 TH/MM3 (1.8-7.7); BASOPHIL % 0.1 % (0.0-2.0); EOSINOPHIL % 0.3 % (0.0-4.0); HEMATOCRIT 25.9 % (35.0-46.0); LYMPH % 11.2 % (9.0-44.0); LYMPHOCYTE # 0.6 TH/MM3 (1.0-4.8); MEAN CELL VOLUME 109.7 FL (80.0-100.0); MEAN CORPUSCULAR HEMOGLOBIN 38.1 PG (27.0-34.0); MEAN CORPUSCULAR HGB CONC 34.7 % (32.0-36.0); MEAN PLATELET VOLUME 8.3 FL (7.0-11.0); MONO % 5.1 % (0.0-8.0); MONOCYTE # 0.3 TH/MM3 (0-0.9); NEUT % 83.3 % (16.0-70.0); PLATELET COUNT 27 TH/MM3 (150-450); RED BLOOD COUNT 2.36 MIL/MM3 (4.00-5.30); RED CELL DISTRIBUTION WIDTH 24.1 % (11.6-17.2); WHITE BLOOD COUNT 5.4 TH/MM3 (4.0-11.0)
[2017-11-19] MEDS: HYDROmorphone HCL PF 2 MG/ML VIAL IV PUSH PRN ×4 (08:08→20:28)
[2017-11-19] MEDS: RESP: BUDESONIDE 0.25 MG/2 ML NEB NEB SCH (08:26)
[2017-11-19 08:39] LABS: ALBUMIN 3.2 GM/DL (3.4-5.0); BICARBONATE 25.6 MEQ/L (21.0-32.0); CALCIUM 6.9 MG/DL (8.5-10.1); CALCIUM-PROTEIN CORRECTED 7.5 MG/DL (8.5-10.1); CREATININE 2.7 MG/DL (0.50-1.00); TOTAL BILIRUBIN ADULT 0.8 MG/DL (0.2-1.0)
[2017-11-19] MEDS: TIOTROPIUM BROMIDE 18 MCG INH INH SCH (09:00)
[2017-11-19 09:09] LABS: BANDS 21 % (0-6); LYMPHOCYTES 14 % (9-44); MONOCYTES 1 % (0-8); NEUTROPHIL # MANUAL DIFF 4.5 TH/MM3 (1.8-7.7); POLYS (SEG NEUTROPHILS) 63 % (16-70)
[2017-11-19 09:10] LABS: DOHLE BODIES PRESENT (NONE SEEN); HOWELL-JOLLY BODIES PRESENT (NONE SEEN); KERATOCYTES OCC (NORMAL)
[2017-11-19 09:12] LABS: TOXIC GRANULATION 1+ (NORMAL)
--- NOTE | 2017-11-19 12:48 | HHI.PR ---
cc: Eriberto Box MD Subjective Subjective Notes Stable overnight Acidosis corrected; Bicarb drip stopped Objective Vitals/I&O Vital Signs Date Time Temp Pulse Resp B/P (MAP) Pulse Ox O2 Delivery O2 Flow Rate FiO2 11/19/17 10:00 108 11/19/17 08:26 99 Nasal Cannula 2.50 11/18/17 15:20 98.3 20 138/69 Labs Laboratory Tests Test 11/18/17 13:28 11/18/17 15:38 11/18/17 17:00 11/18/17 17:25 White Blood Count 3.9 Red Blood Count 1.64 Hemoglobin 6.7 8.0 Hematocrit 20.2 23.8 Mean Corpuscular Volume 123.2 Mean Corpuscular Hemoglobin 40.7 Mean Corpuscular Hemoglobin Concent 33.1 Red Cell Distribution Width 14.8 Platelet Count 28 Mean Platelet Volume 7.7 Differential Total Cells Counted 100 Neutrophils % (Manual) 39 Band Neutrophils % 27 Lymphocytes % 24 Monocytes % 6 Neutrophils # (Manual) 2.7 Metamyelocytes 2 Myelocytes 2 Nucleated Red Blood Cells 1 Differential Comment FINAL DIFF MANUAL Toxic Granulation 2+ Platelet Estimate LOW Platelet Morphology Comment NORMAL Ovalocytes 1+ Ybarra[place] Bodies PRESENT Keratocytes OCC Prothrombin Time 14.8 Prothromb Time International Ratio 1.5 Activated Partial Thromboplast Time 44.6 63.2 Fibrinogen 480 D-Dimer Quantitative (PE/DVT) 15.16 Blood Urea Nitrogen 50 49 Creatinine 3.00 2.99 Random Glucose 94 86 Total Protein 6.0 6.3 Albumin 3.8 3.9 Calcium Level 6.9 6.6 Phosphorus Level 4.3 Magnesium Level 1.8 Alkaline Phosphatase 79 86 Aspartate Amino Transf (AST/SGOT) 100 107 Alanine Aminotransferase (ALT/SGPT) 20 21 Total Bilirubin 0.5 0.6 Sodium Level 143 142 Potassium Level 4.1 3.8 Chloride Level 108 107 Carbon Dioxide Level 21.7 20.2 Anion Gap 13 15 Estimat Glomerular Filtration Rate 15 16 Lactic Acid Level 1.7 Protein Corrected Calcium 7.5 7.0 Blood Gas Puncture Site LT RADIAL Blood Gas Patient Temperature 98.6 Blood Gas HCO3 19 Blood Gas Base Excess -6.8 Blood Gas Oxygen Saturation 93 Arterial Blood pH 7.29 Arterial Blood Partial Pressure CO2 41 Arterial Blood Partial Pressure O2 80 Arterial Blood Oxygen Content 10.2 Arterial Blood Carboxyhemoglobin 1.1 Arterial Blood Methemoglobin 1.4 Blood Gas Hemoglobin 7.7 Oxygen Delivery Device NASAL CANNULA Blood Gas Liter Flow 3 Test 11/18/17 21:20 11/18/17 21:40 11/19/17 00:00 11/19/17 06:43 Blood Gas Puncture Site RT RADIAL RT RADIAL Blood Gas Patient Temperature 98.6 98.6 Blood Gas HCO3 20 26 Blood Gas Base Excess -5.0 1.6 Blood Gas Oxygen Saturation 96 96 Arterial Blood pH 7.30 7.41 Arterial Blood Partial Pressure CO2 42 42 Arterial Blood Partial Pressure O2 136 107 Arterial Blood Oxygen Content 12.5 13.6 Arterial Blood Carboxyhemoglobin 0.9 1.0 Arterial Blood Methemoglobin 1.5 1.5 Blood Gas Hemoglobin 9.1 10.0 Oxygen Delivery Device NASAL CANNULA NASAL CANNULA Blood Gas Liter Flow 3 3 Blood Gas Inspired Oxygen 32 32 White Blood Count 4.2 Red Blood Count 2.47 Hemoglobin 9.4 Hematocrit 27.7 Mean Corpuscular Volume 112.2 Mean Corpuscular Hemoglobin 38.1 Mean Corpuscular Hemoglobin Concent 34.0 Red Cell Distribution Width 24.2 Platelet Count 26 Mean Platelet Volume 9.2 Blood Urea Nitrogen 52 Creatinine 2.85 Random Glucose 84 Calcium Level 7.5 Sodium Level 140 Potassium Level 3.6 Chloride Level 106 Carbon Dioxide Level 19.9 Anion Gap 14 Estimat Glomerular Filtration Rate 16 Protein Corrected Calcium 7.8 Total Protein 6.5 Ammonia LESS THAN 10 Test 11/19/17 07:43 White Blood Count 5.4 Red Blood Count 2.36 Hemoglobin 9.0 Hematocrit 25.9 Mean Corpuscular Volume 109.7 Mean Corpuscular Hemoglobin 38.1 Mean Corpuscular Hemoglobin Concent 34.7 Red Cell Distribution Width 24.1 Platelet Count 27 Mean Platelet Volume 8.3 Neutrophils (%) (Auto) 83.3 Lymphocytes (%) (Auto) 11.2 Monocytes (%) (Auto) 5.1 Eosinophils (%) (Auto) 0.3 Basophils (%) (Auto) 0.1 Neutrophils # (Auto) 4.5 Lymphocytes # (Auto) 0.6 Monocytes # (Auto) 0.3 Eosinophils # (Auto) 0.0 Basophils # (Auto) 0.0 CBC Comment AUTO DIFF Differential Total Cells Counted 100 Neutrophils % (Manual) 63 Band Neutrophils % 21 Lymphocytes % 14 Monocytes % 1 Eosinophils % 1 Neutrophils # (Manual) 4.5 Differential Comment FINAL DIFF MANUAL Toxic Granulation 1+ Dohle Bodies PRESENT Platelet Estimate LOW Platelet Morphology Comment NORMAL [place] Bodies PRESENT Keratocytes OCC Activated Partial Thromboplast Time 63.6 Blood Urea Nitrogen 50 Creatinine 2.70 Random Glucose 101 Total Protein 6.0 Albumin 3.2 Calcium Level 6.9 Alkaline Phosphatase 87 Aspartate Amino Transf (AST/SGOT) 117 Alanine Aminotransferase (ALT/SGPT) 25 Total Bilirubin 0.8 Sodium Level 143 Potassium Level 3.4 Chloride Level 105 Carbon Dioxide Level 25.6 Anion Gap 12 Estimat Glomerular Filtration Rate 17 Protein Corrected Calcium 7.5 Date/Time Source Procedure Growth Status 11/16/17 23:45 Blood Peripheral Aerobic Blood Culture - Preliminary NO GROWTH IN 3 DAYS Resulted 11/16/17 23:45 Blood Peripheral Anaerobic Blood Culture - Preliminary NO GROWTH IN 3 DAYS Resulted 11/18/17 14:25 Stool Stool Stool Occult Blood (KIM) - Final HEMOCCULT POSITIVE Complete Radiology Last 48 hours Impressions Abdomen/Pelvis CT 11/17/17 0000 Signed Impressions: Service Date/Time: Friday, November 17, 2017 01:08 - CONCLUSION: 1. Distended stomach. 2. Fluid distended colon without dilated loops of small bowel. Víctor Bates MD Abdomen X-Ray 11/17/17 0000 Signed Impressions: Service Date/Time: Friday, November 17, 2017 07:37 - CONCLUSION: No bowel obstruction, ileus or perforation. Swapnil Saldaña MD Abdomen Ultrasound 11/17/17 0000 Signed Impressions: Service Date/Time: Friday, November 17, 2017 08:01 - CONCLUSION: Negative for occlusion or significant stenosis. Luis A Castillo MD FACR Chest X-Ray 11/16/17 [id number] Signed Impressions: Service Date/Time: Thursday, November 16, 2017 23:51 - CONCLUSION: Hyperaerated lungs. No infiltrates seen. Víctor Bates MD Cardiovascular: Regular Lungs: Clear Abdomen: Other (mildly tender; NGT to LIWS ) Extremities: No edema A/P Assessment and Plan 67 year old female with abdominal pain; lactic acidosis -Acidosis corrected -Repeat CT reviewed--- no acute process -NPO -NGT to LIWS -Maintain rectal tube -Continue to watch CBC -Hematology following --- on Argatroban -No acute surgical intervention needed at this time Attending Statement The exam, history, and the medical decision-making described in the above note were completed with the assistance of the mid-level provider. I reviewed and agree with the findings presented. I attest that I had a [id number] encounter with the patient on the same day, and personally performed and documented my assessment and findings in the medical record. patient with abdominal pain history of multiple comorbidities possible colitis, continue supportive care/medical management (ABX) will benefit for a colonoscopy when more stable will follow Nicky Neil/Floral Merchandiser ARNP Nov 19, 2017 12:48 Eriberto Box MD Dec 02, 2017 12:23
--- NOTE | 2017-11-19 14:12 | PD.ONC.PN ---
Subjective Subjective Remarks Afebrile overnight. Patient resting in bed, very lethargic. at bedside. Objective Data Date Time Temp Pulse Resp B/P (MAP) Pulse Ox O2 Delivery O2 Flow Rate FiO2 11/19/17 10:00 108 11/19/17 08:26 99 Nasal Cannula 2.50 11/19/17 08:00 109 11/18/17 19:10 97 Nasal Cannula 3.00 11/18/17 18:00 100 11/18/17 16:00 104 11/18/17 15:20 98.3 103 20 138/69 99 11/18/17 15:04 97.8 102 22 124/60 100 11/18/17 15:00 103 11/19/17 11/19/17 11/19/17 07:00 15:00 23:00 Intake Total 1706.1 ml Output Total 875 ml Balance 831.1 ml Result Diagram: 11/19/17 0743 11/19/17 0743 Laboratory Results Laboratory Tests Test 11/18/17 15:38 11/18/17 17:00 11/18/17 17:25 11/18/17 21:20 Activated Partial Thromboplast Time 63.2 SEC Blood Urea Nitrogen 49 MG/DL Creatinine 2.99 MG/DL Random Glucose 86 MG/DL Total Protein 6.3 GM/DL Albumin 3.9 GM/DL Calcium Level 6.6 MG/DL Alkaline Phosphatase 86 U/L Aspartate Amino Transf (AST/SGOT) 107 U/L Alanine Aminotransferase (ALT/SGPT) 21 U/L Total Bilirubin 0.6 MG/DL Sodium Level 142 MEQ/L Potassium Level 3.8 MEQ/L Chloride Level 107 MEQ/L Carbon Dioxide Level 20.2 MEQ/L Anion Gap 15 MEQ/L Estimat Glomerular Filtration Rate 16 ML/MIN Protein Corrected Calcium 7.0 MG/DL Hemoglobin 8.0 GM/DL Hematocrit 23.8 % Blood Gas Puncture Site LT RADIAL RT RADIAL Blood Gas Patient Temperature 98.6 98.6 Blood Gas HCO3 19 mmol/L 20 mmol/L Blood Gas Base Excess -6.8 mmol/L -5.0 mmol/L Blood Gas Oxygen Saturation 93 % 96 % Arterial Blood pH 7.29 7.30 Arterial Blood Partial Pressure CO2 41 mmHg 42 mmHg Arterial Blood Partial Pressure O2 80 mmHg 136 mmHg Arterial Blood Oxygen Content 10.2 Vol % 12.5 Vol % Arterial Blood Carboxyhemoglobin 1.1 % 0.9 % Arterial Blood Methemoglobin 1.4 % 1.5 % Blood Gas Hemoglobin 7.7 G/DL 9.1 G/DL Oxygen Delivery Device NASAL CANNULA NASAL CANNULA Blood Gas Liter Flow 3 L/M 3 L/M Blood Gas Inspired Oxygen 32 % Test 11/18/17 21:40 11/19/17 00:00 11/19/17 06:43 11/19/17 07:43 White Blood Count 4.2 TH/MM3 5.4 TH/MM3 Red Blood Count 2.47 MIL/MM3 2.36 MIL/MM3 Hemoglobin 9.4 GM/DL 9.0 GM/DL Hematocrit 27.7 % 25.9 % Mean Corpuscular Volume 112.2 FL 109.7 FL Mean Corpuscular Hemoglobin 38.1 PG 38.1 PG Mean Corpuscular Hemoglobin Concent 34.0 % 34.7 % Red Cell Distribution Width 24.2 % 24.1 % Platelet Count 26 TH/MM3 27 TH/MM3 Mean Platelet Volume 9.2 FL 8.3 FL Blood Urea Nitrogen 52 MG/DL 50 MG/DL Creatinine 2.85 MG/DL 2.70 MG/DL Random Glucose 84 MG/DL 101 MG/DL Calcium Level 7.5 MG/DL 6.9 MG/DL Sodium Level 140 MEQ/L 143 MEQ/L Potassium Level 3.6 MEQ/L 3.4 MEQ/L Chloride Level 106 MEQ/L 105 MEQ/L Carbon Dioxide Level 19.9 MEQ/L 25.6 MEQ/L Anion Gap 14 MEQ/L 12 MEQ/L Estimat Glomerular Filtration Rate 16 ML/MIN 17 ML/MIN Protein Corrected Calcium 7.8 MG/DL 7.5 MG/DL Total Protein 6.5 GM/DL 6.0 GM/DL Ammonia LESS THAN 10 MCMOL/L Blood Gas Puncture Site RT RADIAL Blood Gas Patient Temperature 98.6 Blood Gas HCO3 26 mmol/L Blood Gas Base Excess 1.6 mmol/L Blood Gas Oxygen Saturation 96 % Arterial Blood pH 7.41 Arterial Blood Partial Pressure CO2 42 mmHg Arterial Blood Partial Pressure O2 107 mmHg Arterial Blood Oxygen Content 13.6 Vol % Arterial Blood Carboxyhemoglobin 1.0 % Arterial Blood Methemoglobin 1.5 % Blood Gas Hemoglobin 10.0 G/DL Oxygen Delivery Device NASAL CANNULA Blood Gas Liter Flow 3 L/M Blood Gas Inspired Oxygen 32 % Neutrophils (%) (Auto) 83.3 % Lymphocytes (%) (Auto) 11.2 % Monocytes (%) (Auto) 5.1 % Eosinophils (%) (Auto) 0.3 % Basophils (%) (Auto) 0.1 % Neutrophils # (Auto) 4.5 TH/MM3 Lymphocytes # (Auto) 0.6 TH/MM3 Monocytes # (Auto) 0.3 TH/MM3 Eosinophils # (Auto) 0.0 TH/MM3 Basophils # (Auto) 0.0 TH/MM3 CBC Comment AUTO DIFF Differential Total Cells Counted 100 Neutrophils % (Manual) 63 % Band Neutrophils % 21 % Lymphocytes % 14 % Monocytes % 1 % Eosinophils % 1 % Neutrophils # (Manual) 4.5 TH/MM3 Differential Comment FINAL DIFF MANUAL Toxic Granulation 1+ Dohle Bodies PRESENT Platelet Estimate LOW Platelet Morphology Comment NORMAL [place] Bodies PRESENT Keratocytes OCC Activated Partial Thromboplast Time 63.6 SEC Albumin 3.2 GM/DL Alkaline Phosphatase 87 U/L Aspartate Amino Transf (AST/SGOT) 117 U/L Alanine Aminotransferase (ALT/SGPT) 25 U/L Total Bilirubin 0.8 MG/DL Culture Results Microbiology Date/Time Source Procedure Growth Status 11/16/17 23:45 Blood Peripheral Aerobic Blood Culture - Preliminary NO GROWTH IN 3 DAYS Resulted 11/16/17 23:45 Blood Peripheral Anaerobic Blood Culture - Preliminary NO GROWTH IN 3 DAYS Resulted 11/16/17 23:42 Blood Peripheral Aerobic Blood Culture - Preliminary NO GROWTH IN 3 DAYS Resulted 11/16/17 23:42 Blood Peripheral Anaerobic Blood Culture - Preliminary NO GROWTH IN 3 DAYS Resulted 11/18/17 14:25 Stool Stool Stool Occult Blood (KIM) - Final HEMOCCULT POSITIVE Complete 11/18/17 14:25 Stool Stool Stool Occult Blood (KIM) Pending Ordered 11/18/17 14:25 Stool Stool Stool Occult Blood (KIM) Pending Ordered Imaging Studies Last 24 hours Impressions Chest X-Ray 11/19/17 0600 Signed Impressions: Service Date/Time: Sunday, November 19, 2017 03:16 - CONCLUSION: Stable right perihilar infiltrates. Víctor Bates MD Administered Medications Medications (Trade) Dose Ordered Sig/Colton Route PRN Reason Start Time Stop Time Status Last Admin Dose Admin Sodium Chloride (NS Flush) 2 ml UNSCH PRN IV FLUSH FLUSH AFTER USING IV ACCESS 11/17/17 06:45 11/17/17 08:29 Sodium Chloride (NS Flush) 2 ml BID IV FLUSH 11/17/17 09:00 11/19/17 07:55 Albuterol/ Ipratropium (Duoneb Neb) 1 ampule Q4HR NEB PRN INH WHEEZING 11/17/17 06:45 11/19/17 12:31 Miscellaneous Information 1 Q361D XX 11/17/17 06:45 11/17/17 06:45 Chlorhexidine Gluconate (Chlorhexidine 2% Cloth) 3 pack Taper DAILY@04 TOP 11/18/17 04:00 11/14/18 03:59 11/19/17 02:47 Senna/Docusate Sodium (Rita-Colace) 1 tab BID PO 11/17/17 09:00 11/19/17 07:55 Sennosides (Senokot) 17.2 mg Q12H PRN PO Moderate constipation 11/17/17 06:45 11/17/17 09:11 Lactulose (Lactulose Liq) 30 ml DAILY PRN PO SEVERE CONSITIPATION 11/17/17 06:45 11/17/17 09:11 Albuterol Sulfate (Albuterol Neb) 2.5 mg Q4HR NEB PRN NEB SHORTNESS OF BREATH 11/17/17 07:45 11/18/17 00:23 Budesonide (Pulmicort Respule Neb) 0.25 mg DAILY NEB NEB 11/17/17 08:00 11/19/17 08:26 Cefepime HCl 2000 mg/Sodium Chloride 100 ml @ 200 mls/hr Q24H IV 11/18/17 09:00 11/19/17 07:54 Metronidazole 100 ml @ 100 mls/hr Q8H IV 11/17/17 20:00 11/19/17 12:36 Argatroban 250 mg/ Sodium Chloride 252.5 ml @ 1.92 mls/hr TITRATE PRN IV aPTT < 50 11/18/17 12:45 11/18/17 14:44 Famotidine (Pepcid Inj) 10 mg Q12HR IV PUSH 11/18/17 21:00 11/19/17 07:55 Hydromorphone HCl (Dilaudid Pf Inj) 0.5 mg Q4H PRN IV PUSH PAIN SCALE 7 TO 10 11/19/17 08:15 11/19/17 12:30 Objective Remarks GENERAL: Lethargic elderly female, supine in bed. SKIN: Warm and dry. HEAD: Normocephalic. EYES: No injection or drainage. NECK: Supple, trachea midline. CARDIOVASCULAR: Regular rate and rhythm RESPIRATORY: Breath sounds equal bilaterally. No accessory muscle use. GASTROINTESTINAL: Abdomen soft, tender to palpation throughout, distended EXTREMITIES: No cyanosis, or edema. MUSCULOSKELETAL: Adequate muscle tone. NEUROLOGICAL: awake, lethargic. Assessment/Plan Problem List: (1) Idiopathic thrombocytopenia purpura ICD Codes: D69.3 - Immune thrombocytopenic purpura Status: Acute Plan: --platelets may be lower due to consumption. --had splenectomy in 2009. --was treated with Nplate in the past with good response. --per , patient's baseline is between 50-70K and she has not required treatment for ITP since spleen removal several years ago. --platelet count has been fluctuating between 40,000-70,000. --no indication to start treatment for the idiopathic thrombocytopenic purpura at this point. (2) Arterial occlusion ICD Codes: I70.90 - Unspecified atherosclerosis Plan: --started on Argatroban on 11/18 --History of left popliteal arterial occlusion, likely an embolic event. --had embolectomy in September of this year. then started on Pradaxa, but later switched to Xarelto. --presented with abdominal pain and could have ischemic bowel (3) Abdominal pain ICD Codes: R10.9 - Unspecified abdominal pain Status: Acute Plan: --presented with acute severe abdominal pain. --CT did not show any bowel obstruction. --Ultrasound also negative for occlusion or stenosis. 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 h/o Chronic anemia. Chronic back pain. Multiple compression fractures. Chronic obstructive pulmonary disease. Hypertension. Left popliteal arterial occlusion. Plan 1. will obtain records from patient's production statistical clerk, Dr. Bettencourt at [facility], records request sent and discussed with nurse 2. monitor CBC Attending Statement The exam, history, and the medical decision-making described in the above note were completed with the assistance of the mid-level provider. I reviewed and agree with the findings presented. I attest that I had a [id number] encounter with the patient on the same day, and personally performed and documented my assessment and findings in the medical record. Pt is lethargic. No report of bleeding. Tolerating argatroban. Platelet down to 27k likely due to consumptive process or sepsis. Hgb stable since 1U PRBC transfusion No clear indication of treat ITP yet. Continue to monitor CBC closely. Will try to get records from her primary production statistical clerk. Problem Qualifiers (1) Abdominal pain: Qualified Codes: R10.84 - Generalized abdominal pain Keke Foster Nov 19, 2017 14:12 Brdaen Luong MD Nov 19, 2017 15:46
[2017-11-19 16:11] LABS: MAGNESIUM 1.7 MG/DL (1.5-2.5); PHOSPHORUS 3.6 MG/DL (2.5-4.9)
[2017-11-19 17:02] LABS: HEMATOCRIT 26.1 % (35.0-46.0)
--- NOTE | 2017-11-19 17:03 | HHI.GIFU ---
Subjective Remarks Pt resting in bed, preparing to go for CT scan at bedside NGT in R nostril to LIWS with 800mL of green output Rectal tube with loose, brown stool in collection bag (Lesa Piedra) Objective Vitals I&O Vital Signs Date Time Temp Pulse Resp B/P (MAP) Pulse Ox O2 Delivery O2 Flow Rate FiO2 11/19/17 10:00 108 11/19/17 08:26 99 Nasal Cannula 2.50 11/19/17 08:00 109 11/18/17 19:10 97 Nasal Cannula 3.00 11/18/17 18:00 100 I/O 11/18/17 11/18/17 11/18/17 11/19/17 11/19/17 11/19/17 07:00 15:00 23:00 07:00 15:00 23:00 Intake Total 3946 ml 1420 ml 1107 ml 1706.1 ml Output Total 360 ml 450 ml 875 ml Balance 3586 ml 1420 ml 657 ml 831.1 ml Intake Oral 0 ml 0 ml IV Total 3946 ml 1420 ml 697 ml 1706.1 ml Packed Cells 400 ml Blood Product IV Normal Saline Flush 10 ml Output Urine Total 150 ml 250 ml 550 ml Stool Total 10 ml 50 ml 25 ml Gastric Drainage Total 200 ml 150 ml 300 ml Laboratory Laboratory Tests Test 11/18/17 17:00 11/18/17 17:25 11/18/17 21:20 11/18/17 21:40 Hemoglobin 8.0 9.4 Hematocrit 23.8 27.7 Blood Gas Puncture Site LT RADIAL RT RADIAL Blood Gas Patient Temperature 98.6 98.6 Blood Gas HCO3 19 20 Blood Gas Base Excess -6.8 -5.0 Blood Gas Oxygen Saturation 93 96 Arterial Blood pH 7.29 7.30 Arterial Blood Partial Pressure CO2 41 42 Arterial Blood Partial Pressure O2 80 136 Arterial Blood Oxygen Content 10.2 12.5 Arterial Blood Carboxyhemoglobin 1.1 0.9 Arterial Blood Methemoglobin 1.4 1.5 Blood Gas Hemoglobin 7.7 9.1 Oxygen Delivery Device NASAL CANNULA NASAL CANNULA Blood Gas Liter Flow 3 3 Blood Gas Inspired Oxygen 32 White Blood Count 4.2 Red Blood Count 2.47 Mean Corpuscular Volume 112.2 Mean Corpuscular Hemoglobin 38.1 Mean Corpuscular Hemoglobin Concent 34.0 Red Cell Distribution Width 24.2 Platelet Count 26 Mean Platelet Volume 9.2 Blood Urea Nitrogen 52 Creatinine 2.85 Random Glucose 84 Calcium Level 7.5 Sodium Level 140 Potassium Level 3.6 Chloride Level 106 Carbon Dioxide Level 19.9 Anion Gap 14 Estimat Glomerular Filtration Rate 16 Protein Corrected Calcium 7.8 Total Protein 6.5 Test 11/19/17 00:00 11/19/17 06:43 11/19/17 07:43 11/19/17 16:02 Ammonia LESS THAN 10 Blood Gas Puncture Site RT RADIAL RT RADIAL Blood Gas Patient Temperature 98.6 98.6 Blood Gas HCO3 26 23 Blood Gas Base Excess 1.6 -1.5 Blood Gas Oxygen Saturation 96 95 Arterial Blood pH 7.41 7.39 Arterial Blood Partial Pressure CO2 42 39 Arterial Blood Partial Pressure O2 107 106 Arterial Blood Oxygen Content 13.6 13.8 Arterial Blood Carboxyhemoglobin 1.0 1.3 Arterial Blood Methemoglobin 1.5 1.5 Blood Gas Hemoglobin 10.0 10.2 Oxygen Delivery Device NASAL CANNULA NASAL CANNULA Blood Gas Liter Flow 3 3 Blood Gas Inspired Oxygen 32 White Blood Count 5.4 Red Blood Count 2.36 Hemoglobin 9.0 Hematocrit 25.9 Mean Corpuscular Volume 109.7 Mean Corpuscular Hemoglobin 38.1 Mean Corpuscular Hemoglobin Concent 34.7 Red Cell Distribution Width 24.1 Platelet Count 27 Mean Platelet Volume 8.3 Neutrophils (%) (Auto) 83.3 Lymphocytes (%) (Auto) 11.2 Monocytes (%) (Auto) 5.1 Eosinophils (%) (Auto) 0.3 Basophils (%) (Auto) 0.1 Neutrophils # (Auto) 4.5 Lymphocytes # (Auto) 0.6 Monocytes # (Auto) 0.3 Eosinophils # (Auto) 0.0 Basophils # (Auto) 0.0 CBC Comment AUTO DIFF Differential Total Cells Counted 100 Neutrophils % (Manual) 63 Band Neutrophils % 21 Lymphocytes % 14 Monocytes % 1 Eosinophils % 1 Neutrophils # (Manual) 4.5 Differential Comment FINAL DIFF MANUAL Toxic Granulation 1+ Dohle Bodies PRESENT Platelet Estimate LOW Platelet Morphology Comment NORMAL [place] Bodies PRESENT Keratocytes OCC Activated Partial Thromboplast Time 63.6 Blood Urea Nitrogen 50 Creatinine 2.70 Random Glucose 101 Total Protein 6.0 Albumin 3.2 Calcium Level 6.9 Alkaline Phosphatase 87 Aspartate Amino Transf (AST/SGOT) 117 Alanine Aminotransferase (ALT/SGPT) 25 Total Bilirubin 0.8 Sodium Level 143 Potassium Level 3.4 Chloride Level 105 Carbon Dioxide Level 25.6 Anion Gap 12 Estimat Glomerular Filtration Rate 17 Protein Corrected Calcium 7.5 Phosphorus Level 3.6 Magnesium Level 1.7 Triglycerides Level 145 Date/Time Source Procedure Growth Status 11/16/17 23:45 Blood Peripheral Aerobic Blood Culture - Preliminary NO GROWTH IN 3 DAYS Resulted 11/16/17 23:45 Blood Peripheral Anaerobic Blood Culture - Preliminary NO GROWTH IN 3 DAYS Resulted 11/18/17 14:25 Stool Stool Stool Occult Blood (KIM) - Final HEMOCCULT POSITIVE Complete Imaging Last Impressions Chest X-Ray 11/19/17 0600 Signed Impressions: Service Date/Time: Sunday, November 19, 2017 03:16 - CONCLUSION: Stable right perihilar infiltrates. Víctor Bates MD Abdomen/Pelvis CT 11/17/17 0000 Signed Impressions: Service Date/Time: Friday, November 17, 2017 22:11 - CONCLUSION: 1. Diffuse gas and fluid distention of bowel and stomach most characteristic of a diffuse ileus. No free air. Small amount of free fluid. Mild anasarca. Roby Brito MD Abdomen X-Ray 11/17/17 0000 Signed Impressions: Service Date/Time: Friday, November 17, 2017 07:37 - CONCLUSION: No bowel obstruction, ileus or perforation. Swapnil Saldaña MD Abdomen Ultrasound 11/17/17 0000 Signed Impressions: Service Date/Time: Friday, November 17, 2017 08:01 - CONCLUSION: Negative for occlusion or significant stenosis. Luis A Castillo MD FACR Physical Exam HEENT: Normocephalic; atraumatic CHEST: Even/unlabored- 3 L O2 via NC CARDIAC: Sinus tachycardia ABDOMEN: Soft, distended, mild diffuse TTP;bowel sounds active. NGT R nostril to LIWS with 800 mL of green colored gastric secretion. Rectal tube with loose, brown stool in collection bag EXTREMITIES: No clubbing, cyanosis, or edema. SKIN: Normal; no rash; no jaundice. MEDICAL CLAIMS MANAGER: Awake (Lesa Piedra) Assessment and Plan Plan ASSESSMENT - Abdominal pain and distention- KUB (11/17) --> No signs of obstruction, ileus or perforation. US abd SMA/Celiac --> Negative for occlusion or significant stenosis. - Anemia- macrocytic- H/H dropped to 6.7/20.2 yesterday- received one unit PRBCs- currently 05/26.9. No signs of GIB via NGT or rectal output. 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 Going down for CT abdomen/pelvis now. PLAN - NGT to LIWS - Rectal tube to collection bag - CT abdomen W pelvis pending - EGD/colonoscopy when stable - Monitor H/H - Transfuse per CCM - Notify GI of active bleeding - TPN - Pepcid - Further recommendations based on clinical course Pt has been seen and examined by myself and Dr. Howell and this note is written on her behalf (Lesa Piedra) Physician Comments seen, examined agree with above (Ina Howell MD) Lesa Piedra Nov 19, 2017 17:03 Ina Howell MD Nov 19, 2017 19:38
[2017-11-19 17:11] LABS: INTERNATIONAL NORMALIZED RATIO 1.3 RATIO; PROTHROMBIN TIME - PATIENT 13.2 SEC (9.8-11.6)
--- NOTE | 2017-11-19 17:43 | RADRPT ---
EXAM DATE/TIME: 11/19/2017 17:10 [facility] COMPARISON: INDICATIONS : Chest pain. RADIATION DOSE: 17.34 CTDIvol (mGy) ; Combined studies - Thorax/Abdomen/Pelvis MEDICAL HISTORY : Cardiovascular disease. Hypertension. Chronic obstructive pulmonary disease. SURGICAL HISTORY : Splenectomy. Tubal ligation. ENCOUNTER: Initial ACUITY: 1 day PAIN SCALE: 5/10 LOCATION: chest TECHNIQUE: Volumetric scanning of the chest was performed. Using automated exposure control and adjustment of t he mA and/or kV according to patient size, radiation dose was kept as low as reasonably achievable to obtain optimal diagnostic quality images. DICOM format image data is available electronically for r eview and comparison. Follow-up recommendations for detected pulmonary nodules are based at a minimum on nodule size and pa tient risk factors according to Fleischner Society Guidelines. FINDINGS: Consolidative changes in the left upper lobe small bilateral pleural effusions. Minimal colonic rai ges right base There is no axillary adenopathy. There is no mediastinal adenopathy There is no pericardial effusion Upper abdomen visualized is unremarkable CONCLUSION: Minimal consolidative changes as above Small pleural effusions. Luis A Castillo MD FACR on November 19, 2017 at 17:39 Board Certified Radiologist. This report was verified electronically.
--- NOTE | 2017-11-19 17:46 | RADRPT ---
EXAM DATE/TIME: 11/19/2017 17:10 [facility] COMPARISON: CT ABDOMEN & PELVIS W/O CONTRAST, November 17, 2017, 22:11. INDICATIONS : Abdominal pain. ORAL CONTRAST: No oral contrast ingested. RADIATION DOSE: 17.34 CTDIvol (mGy) ; Combined studies - Thorax/Abdomen/Pelvis MEDICAL HISTORY : Cardiovascular disease. Hypertension. Chronic obstructive pulmonary disease. SURGICAL HISTORY : Splenectomy. Tubal ligation. ENCOUNTER: Subsequent ACUITY: 4 - 6 days PAIN SCALE: 5/10 LOCATION: abdomen TECHNIQUE: Volumetric scanning of the abdomen and pelvis was performed. Using automated exposure control and ad justment of the mA and/or kV according to patient size, radiation dose was kept as low as reasonably achievable to obtain optimal diagnostic quality images. DICOM format image data is available electro nically for review and comparison. FINDINGS: Small pleural effusions increased from 11/17/17 with minimal consolidative changes right base Trace subcapsular fluid on the liver or ascites, minimal finding. The liver is otherwise unremarkabl e. Gallbladder is prominent without stones. Spleen is not visualized. Pancreas appears normal. Ad renals and kidneys are unremarkable There is no free air Moderate fluid filled loops of small bowel identified. Solid stool is seen in the colon. Pelvic contents are unremarkable the moderate artifact from total hip. CONCLUSION: Trace ascites or subcapsular fluid around liver Prominent gallbladder Luis A Castillo MD FACR on November 19, 2017 at 17:41 Board Certified Radiologist. This report was verified electronically.
[2017-11-19] MEDS: FAT EMULSION 20% INJ 250 ML (@10 mls/hr) IV SCH (20:17)
[2017-11-19] MEDS: CLINIMIX 4.25/5 (Cust.Renal Periph) 1000 mL- </= 42 mls/hr IV SCH ×8 (20:17)
[2017-11-20] VITALS (19 sets, daily range): BP systolic 131–171; BP diastolic 61–120; PULSE 103–170; RESP 12–51; TEMP 97.4–99.5; O2SAT 96–100
[2017-11-20] MEDS: HYDROmorphone HCL PF 2 MG/ML VIAL IV PUSH PRN ×3 (00:39→11:45)
[2017-11-20] MEDS: CHLORHEXIDINE GLUCONATE 2 % 1 PACK (2 CLOTHS) TOP SCH (04:00)
[2017-11-20] MEDS: metroNIDAZOLE 500 MG INJ 100 ML IV SCH ×3 (04:10→19:44)
[2017-11-20 06:20] LABS: HEMOGLOBIN 9.4 GM/DL (11.6-15.3); MEAN CELL VOLUME 111.3 FL (80.0-100.0); MEAN CORPUSCULAR HEMOGLOBIN 38.8 PG (27.0-34.0); MEAN CORPUSCULAR HGB CONC 34.9 % (32.0-36.0); MEAN PLATELET VOLUME 11.7 FL (7.0-11.0); PLATELET COUNT 43 TH/MM3 (150-450); RED BLOOD COUNT 2.43 MIL/MM3 (4.00-5.30); RED CELL DISTRIBUTION WIDTH 23.3 % (11.6-17.2); WHITE BLOOD COUNT 4.2 TH/MM3 (4.0-11.0)
--- NOTE | 2017-11-20 06:22 | RADRPT ---
EXAM DATE/TIME: 11/20/2017 04:36 [facility] COMPARISON: CHEST SINGLE AP, November 19, 2017, 3:16. INDICATIONS : Shortness of breath, possible pulmonary disease. MEDICAL HISTORY : Hypertension. Chronic obstructive pulmonary disease. Asthma SURGICAL HISTORY : None. ENCOUNTER: Subsequent ACUITY: 4 - 6 days PAIN SCORE: Non-responsive. LOCATION: Bilateral chest FINDINGS: Gastric tube tip and side-port project within the stomach. Small consolidation medial left lower remigio g and ill-defined infiltrates at the right lung base. The heart is normal size. CONCLUSION: Bibasilar infiltrates, left greater than right. Víctor Bates MD on November 20, 2017 at 6:19 Board Certified Radiologist. This report was verified electronically.
[2017-11-20 06:58] LABS: BICARBONATE 26.1 MEQ/L (21.0-32.0); CALCIUM 7.1 MG/DL (8.5-10.1); CREATININE 2.11 MG/DL (0.50-1.00); MAGNESIUM 1.7 MG/DL (1.5-2.5); PHOSPHORUS 2.9 MG/DL (2.5-4.9); RANDOM VANCOMYCIN 10.3 COMMENT
[2017-11-20 07:31] LABS: CALCIUM-PROTEIN CORRECTED 7.9 MG/DL (8.5-10.1); TOTAL PROTEIN 5.6 GM/DL (6.4-8.2)
[2017-11-20] MEDS: RESP: BUDESONIDE 0.25 MG/2 ML NEB NEB SCH (08:28)
[2017-11-20 08:35] LABS: BANDS 29 % (0-6); CORRECTED NUCLEATED RBC 1 /100 WBC (0-0); LYMPHOCYTES 9 % (9-44); MONOCYTES 6 % (0-8); NEUTROPHIL # MANUAL DIFF 3.5 TH/MM3 (1.8-7.7); NUCLEATED RED BLOOD CELL 1 (0-0); POLYS (SEG NEUTROPHILS) 55 % (16-70)
[2017-11-20 08:36] LABS: DOHLE BODIES PRESENT (NONE SEEN)
[2017-11-20 08:37] LABS: HOWELL-JOLLY BODIES PRESENT (NONE SEEN)
[2017-11-20] MEDS: DOCUSATE SODIUM 50 MG/SENNA 8.6 MG TAB PO SCH ×2 (08:37→19:45)
[2017-11-20] MEDS: FAMOTIDINE 20 MG/2 ML VIAL IV PUSH SCH ×2 (08:37→19:44)
[2017-11-20] MEDS: CEFEPIME INJ 2,000 MG in SODIUM CHLORIDE 0.9% INJ 100 ML IV SCH (08:37)
[2017-11-20] MEDS: SODIUM CHLORIDE 0.9% FLUSH 10 ML FLUSH IV FLUSH SCH ×2 (08:38→19:44)
[2017-11-20] MEDS: TIOTROPIUM BROMIDE 18 MCG INH INH SCH (08:39)
[2017-11-20] MEDS ORDERED: FUROSEMIDE 40 MG/5 ML UNIT DOSE CUP NG ONE (10:00)
--- NOTE | 2017-11-20 10:39 | HHI.CCPN ---
Subjective Remarks/Hospital Course This is a 67-year-old female that presented to [facility], by private transportation for evaluation of severe abdominal pain. Patient states of the past week she has had constipation so last evening took laxatives ( Senokot) x 3 days, and then today had large bowel movement multiple times with development of severe lower abdominal pain. Patient had subsequently noted some abdominal distention. Patient states her abdomen is exquisitely tender with any movement. Patient also complains of some epigastric pain. 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 No report of hematemesis or coffee-ground emesis. Patient states after bowel movements no report of melena or hematochezia. Patient rates her abdominal pain 10/10 in intensity, without relief of narcotics. The patient was transferred to [facility] , critical care medicine was consulted. Subjective: 11/18: Overnight the patient was known to be oliguric, the patient received approximately 5 L of normal saline , and 500 cc of 5% albumin during the night. NG tube output approximately 700 cc since admission. The patient was noted to be mildly confused this a.m. and progressively worsened. O2 saturation was 100% ,stat ABGs performed, metabolic acidosis with a bicarbonate level of 16. Patient received 2 A of sodium bicarbonate and bicarbonate infusion was initiated. Patient also was noted to be hypocalcemic this a.m. and received 2 g of calcium gluconate. The patient was started on Argatroban infusion after discussion with Dr. Howell, plan for endoscopy tomorrow . The patient was previously on Xarelto for DVT prophylaxis.Repeat labs performed early this afternoon revealed hemoglobin of 6.7, 1 unit of PRBC being transfused. She required restraints, for patient safety. Repeat labs pending this evening posttransfusion. 11/19: Afebrile. Last evening the patient became more confused metabolic acidosis, placed on sodium bicarbonate infusion, now corrected. Patient alert, following commands. Sodium bicarbonate infusion discontinued. Patient noted to be severely anemic with hemoglobin of 6.2 received 1 unit of PRBCs, last hemoglobin 9.4, stable. Continued serial monitoring of H&H labs pending this a.m.. Patient noted to have improvement in urine output overnight. EGD placed on hold. 11/20 No events overnight. Afebrile, on 3L oxygen. Objective Vital Signs Date Time Temp Pulse Resp B/P (MAP) Pulse Ox O2 Delivery O2 Flow Rate FiO2 11/20/17 09:10 100 Nasal Cannula 3.00 11/20/17 06:00 103 11/20/17 04:00 99.0 31 171/98 (122) Intake and Output 11/20/17 11/20/17 11/21/17 08:00 16:00 00:00 Intake Total 100 ml Output Total 1000 ml Balance -900 ml Result Diagram: 11/20/1705 11/20/17604 Other Results Laboratory Tests Test 11/19/17 16:02 11/19/17 16:45 11/20/17 06:05 11/20/17 09:38 Blood Gas Puncture Site RT RADIAL Blood Gas Patient Temperature 98.6 Blood Gas HCO3 23 mmol/L Blood Gas Base Excess -1.5 mmol/L Blood Gas Oxygen Saturation 95 % Arterial Blood pH 7.39 Arterial Blood Partial Pressure CO2 39 mmHg Arterial Blood Partial Pressure O2 106 mmHg Arterial Blood Oxygen Content 13.8 Vol % Arterial Blood Carboxyhemoglobin 1.3 % Arterial Blood Methemoglobin 1.5 % Blood Gas Hemoglobin 10.2 G/DL Oxygen Delivery Device NASAL CANNULA Blood Gas Liter Flow 3 L/M Hemoglobin 9.0 GM/DL 9.4 GM/DL Hematocrit 26.1 % 27.0 % Prothrombin Time 13.2 SEC Prothromb Time International Ratio 1.3 RATIO Lactic Acid Level 0.9 mmol/L White Blood Count 4.2 TH/MM3 Red Blood Count 2.43 MIL/MM3 Mean Corpuscular Volume 111.3 FL Mean Corpuscular Hemoglobin 38.8 PG Mean Corpuscular Hemoglobin Concent 34.9 % Red Cell Distribution Width 23.3 % Platelet Count 43 TH/MM3 Mean Platelet Volume 11.7 FL CBC Comment AUTO DIFF Differential Total Cells Counted 100 Neutrophils % (Manual) 55 % Band Neutrophils % 29 % Lymphocytes % 9 % Monocytes % 6 % Eosinophils % 1 % Neutrophils # (Manual) 3.5 TH/MM3 Nucleated Red Blood Cells 1 /100 WBC Differential Comment FINAL DIFF MANUAL Dohle Bodies PRESENT Platelet Estimate LOW Platelet Morphology Comment NORMAL Ybarra-[place] Bodies PRESENT Blood Urea Nitrogen 52 MG/DL Creatinine 2.11 MG/DL Random Glucose 124 MG/DL Total Protein 5.6 GM/DL Calcium Level 7.1 MG/DL Phosphorus Level 2.9 MG/DL Magnesium Level 1.7 MG/DL Sodium Level 146 MEQ/L Potassium Level 3.4 MEQ/L Chloride Level 109 MEQ/L Carbon Dioxide Level 26.1 MEQ/L Anion Gap 11 MEQ/L Estimat Glomerular Filtration Rate 23 ML/MIN Protein Corrected Calcium 7.9 MG/DL Random Vancomycin Level 10.3 COMMENT Activated Partial Thromboplast Time 44.6 SEC Test 11/20/17 09:40 Blood Gas Puncture Site LT RADIAL Blood Gas Patient Temperature 98.6 Blood Gas HCO3 25 mmol/L Blood Gas Base Excess 1.0 mmol/L Blood Gas Oxygen Saturation 95 % Arterial Blood pH 7.40 Arterial Blood Partial Pressure CO2 42 mmHg Arterial Blood Partial Pressure O2 104 mmHg Arterial Blood Oxygen Content 14.4 Vol % Arterial Blood Carboxyhemoglobin 1.3 % Arterial Blood Methemoglobin 1.3 % Blood Gas Hemoglobin 10.7 G/DL Oxygen Delivery Device NASAL CANNULA Blood Gas Liter Flow 3 L/M Imaging Last Impressions Chest X-Ray 11/20/17 0600 Signed Impressions: Service Date/Time: October 04:36 - CONCLUSION: Bibasilar infiltrates, left greater than right. Víctor Bates MD Chest CT 11/19/17 0000 Signed Impressions: Service Date/Time: Sunday, November 19, 2017 17:10 - CONCLUSION: Minimal consolidative changes as above Small pleural effusions. Luis A Castillo MD FACR Abdomen/Pelvis CT 11/19/17 0000 Signed Impressions: Service Date/Time: Sunday, November 19, 2017 17:10 - CONCLUSION: Trace ascites or subcapsular fluid around liver Prominent gallbladder Luis A Castillo MD FACR Abdomen X-Ray 11/17/17 0000 Signed Impressions: Service Date/Time: Friday, November 17, 2017 07:37 - CONCLUSION: No bowel obstruction, ileus or perforation. Swapnil Saldaña MD Abdomen Ultrasound 11/17/17 0000 Signed Impressions: Service Date/Time: Friday, November 17, 2017 08:01 - CONCLUSION: Negative for occlusion or significant stenosis. Luis A Castillo MD FACR Objective Remarks GENERAL: This is a pale thin female alert, denies pain at this time SKIN: Warm and dry. Pale HEAD: Atraumatic. Normocephalic. EYES: Pupils equal and round. No scleral icterus. No injection or drainage. ENT: No nasal bleeding or discharge. Mucous membranes pink and moist. NG tube to LIWS-300cc- bilious NECK: Trachea midline. No JVD. CARDIOVASCULAR: Tachycardic rate, regular rhythm. RESPIRATORY: No accessory muscle use. Clear to auscultation. Breath sounds equal bilaterally.Nasal Cannula 3 L/m GASTROINTESTINAL: Abdomen soft, non-tender, nondistended. No guarding. MUSCULOSKELETAL: Extremities without clubbing, cyanosis, or edema. No obvious deformities. NEUROLOGICAL: Awake and alert GCS 15. RASS 0. No gross focal/sensory deficits. Follows commands in all 4 extremities. A/P Problem List: (1) Chronic anemia ICD Code: D64.9 - Anemia, unspecified Status: Acute (2) Idiopathic thrombocytopenia purpura ICD Code: D69.3 - Immune thrombocytopenic purpura Status: Acute (3) COPD (chronic obstructive pulmonary disease) ICD Code: J44.9 - Chronic obstructive pulmonary disease, unspecified Status: Acute (4) NISHANT (acute kidney injury) ICD Code: N17.9 - Acute kidney failure, unspecified Status: Acute (5) Chronic back pain ICD Code: M54.9 - Dorsalgia, unspecified; G89.29 - Other chronic pain Status: Acute (6) Hypertension ICD Code: I10 - Essential (primary) hypertension Status: Acute (7) Acute and chronic respiratory failure with hypoxia ICD Code: J96.21 - Acute and chronic respiratory failure with hypoxia Status: Acute (8) Abdominal pain ICD Code: R10.9 - Unspecified abdominal pain Status: Acute (9) Metabolic acidemia ICD Code: E87.2 - Acidosis Status: Acute Assessment and Plan Assessment Plan Plan by systems: Neurologic: Chronic back pain 2/[address] brain Neurochecks per ICU protocol Dilaudid 0.5 mg every 4 hours when necessary for breakthrough pain scale 7-10 Tylenol 650 mg every 6 hours when necessary for pain or temperature greater than 100.5 Patient on home dose [place] for pain control will hold for now Respiratory: COPD Asthma Home O2 dependency Continue with oxygen keep sats >92% home O2 dependency Continue DuoNeb, Spiriva and budesonide- home medications Cardiovascular: Hypertension Sinus tachycardia Add Cardizem 60mg Q6 for BP/HR control. Keep MAP>65mmHg Renal: NISHANT Monitor renal function, I/O's, electrolytes replacement as needed Diurese with Lasix 40mg x1, give KCL 20meq IV for K 3.2 FEN/GI: Eelvated LFT's On PPN/Iipids, GI and surgery are following CT abd/pelvis: Trace ascites or subcapsular fluid around liver Prominent gallbladder US abdomen: Negative for occlusion or significant stenosis. NGT to LIWS 11/17 Rectal tube Check KUB abdomen, if KUB is negative t/c starting PO intake if ok with GI speech eval Heme/ID: History of DVT 09/2017 Chronic ITP Hematology following-Dr. Luong.11/17, 11/18 Transfused 1u PRBC Platelet count normally 40-70,000 Patient had left popliteal embolectomy 09/2017, Dr. Mixon and was placed on Pradaxa, patient under the care of front desk auxiliary Dr. Reyna. 11/18 Patient takes Xarelto 20mg/d (on hold) now on Argatroban infusion Check Doppler US LE Endocrine: Hyperglycemia of critical illness Glucose monitoring per ICU [id number] regimen -- SSI Prophylaxis: GI Prophylaxis Famotidine BID DVT Prophylaxis -- SCDs Patient's home med include Xarelto now on Argatroban Lines: Peripheral IVs 2. Central line if indicated Level 3 Problem Qualifiers (1) Abdominal pain: Qualified Codes: R10.84 - Generalized abdominal pain Nevaeh Saldana MD Nov 20, 2017 10:39
[2017-11-20] MEDS: POTASSIUM CHLOR 10 MEQ PREMIX 100 ML IV SCH ×2 (10:51→11:56)
--- NOTE | 2017-11-20 11:06 | RADRPT ---
EXAM DATE/TIME: 11/20/2017 10:33 [facility] COMPARISON: CT ABDOMEN & PELVIS W/O CONTRAST, November 19, 2017, 17:10. ABDOMEN KUB ONLY, November 17, 2017, 7:37. INDICATIONS : Evaluate for ileus. MEDICAL HISTORY : None. SURGICAL HISTORY : None. ENCOUNTER: Subsequent ACUITY: 4 - 6 days PAIN SCORE: Non-responsive. LOCATION: Abdomen. FINDINGS: There is a normal bowel gas pattern without obstruction or ileus. A rectal tube is noted. Nasogastric tube has its tip in the proximal stomach. Right hip replacement is noted. CONCLUSION: No bowel obstruction or ileus. Swapnil Saldaña MD on November 20, 2017 at 11:02 Board Certified Radiologist. This report was verified electronically.
[2017-11-20 11:13] LABS: TOTAL BILIRUBIN ADULT 0.7 MG/DL (0.2-1.0); TOTAL PROTEIN 5.6 GM/DL (6.4-8.2)
[2017-11-20 11:19] LABS: ALBUMIN 2.7 GM/DL (3.4-5.0); DIRECT BILIRUBIN ADULT 0.1 MG/DL (0.0-0.2); INDIRECT BILIRUBIN 0.6 MG/DL (0.0-0.8)
--- NOTE | 2017-11-20 11:49 | HHI.GIFU ---
Subjective Remarks Pt resting in bed. Family at bedside. Confused, nonverbal. Liquid brown stool in bag. going for head CT. (Karime Montano) Objective Vitals I&O Vital Signs Date Time Temp Pulse Resp B/P (MAP) Pulse Ox O2 Delivery O2 Flow Rate FiO2 11/20/17 09:10 100 Nasal Cannula 3.00 11/20/17 06:00 103 11/20/17 04:00 99.0 112 31 171/98 (122) 98 11/20/17 04:00 112 11/20/17 02:00 107 11/20/17 00:00 109 11/20/17 00:00 99.1 109 12 158/82 (107) 97 11/19/17 22:00 107 11/19/17 20:00 114 11/19/17 20:00 99.3 114 41 170/117 (134) 100 11/19/17 18:00 137 11/19/17 16:00 118 11/19/17 15:00 98 Nasal Cannula 3.00 11/19/17 14:00 114 11/19/17 12:00 113 I/O 11/19/17 11/19/17 11/19/17 11/20/17 11/20/17 11/20/17 07:00 15:00 23:00 07:00 15:00 23:00 Intake Total 1706.1 ml 300 ml 100 ml Output Total 875 ml 1180 ml 1000 ml Balance 831.1 ml -880 ml -900 ml Intake Oral 0 ml 0 ml IV Total 1706.1 ml 300 ml 100 ml Output Urine Total 550 ml 750 ml 1000 ml Stool Total 25 ml 30 ml 0 ml Gastric Drainage Total 300 ml 400 ml 0 ml Laboratory Laboratory Tests Test 11/19/17 16:02 11/19/17 16:45 11/20/17 06:05 11/20/17 09:38 Blood Gas Puncture Site RT RADIAL Blood Gas Patient Temperature 98.6 Blood Gas HCO3 23 Blood Gas Base Excess -1.5 Blood Gas Oxygen Saturation 95 Arterial Blood pH 7.39 Arterial Blood Partial Pressure CO2 39 Arterial Blood Partial Pressure O2 106 Arterial Blood Oxygen Content 13.8 Arterial Blood Carboxyhemoglobin 1.3 Arterial Blood Methemoglobin 1.5 Blood Gas Hemoglobin 10.2 Oxygen Delivery Device NASAL CANNULA Blood Gas Liter Flow 3 Hemoglobin 9.0 9.4 Hematocrit 26.1 27.0 Prothrombin Time 13.2 Prothromb Time International Ratio 1.3 Lactic Acid Level 0.9 White Blood Count 4.2 Red Blood Count 2.43 Mean Corpuscular Volume 111.3 Mean Corpuscular Hemoglobin 38.8 Mean Corpuscular Hemoglobin Concent 34.9 Red Cell Distribution Width 23.3 Platelet Count 43 Mean Platelet Volume 11.7 CBC Comment AUTO DIFF Differential Total Cells Counted 100 Neutrophils % (Manual) 55 Band Neutrophils % 29 Lymphocytes % 9 Monocytes % 6 Eosinophils % 1 Neutrophils # (Manual) 3.5 Nucleated Red Blood Cells 1 Differential Comment FINAL DIFF MANUAL Dohle Bodies PRESENT Platelet Estimate LOW Platelet Morphology Comment NORMAL [facility] Bodies PRESENT Blood Urea Nitrogen 52 Creatinine 2.11 Random Glucose 124 Total Protein 5.6 Calcium Level 7.1 Phosphorus Level 2.9 Magnesium Level 1.7 Sodium Level 146 Potassium Level 3.4 Chloride Level 109 Carbon Dioxide Level 26.1 Anion Gap 11 Estimat Glomerular Filtration Rate 23 Protein Corrected Calcium 7.9 Total Bilirubin 0.7 Direct Bilirubin 0.1 Indirect Bilirubin 0.6 Aspartate Amino Transf (AST/SGOT) 107 Alanine Aminotransferase (ALT/SGPT) 20 Alkaline Phosphatase 74 Albumin 2.7 Random Vancomycin Level 10.3 Activated Partial Thromboplast Time 44.6 Test 11/20/17 09:40 Blood Gas Puncture Site LT RADIAL Blood Gas Patient Temperature 98.6 Blood Gas HCO3 25 Blood Gas Base Excess 1.0 Blood Gas Oxygen Saturation 95 Arterial Blood pH 7.40 Arterial Blood Partial Pressure CO2 42 Arterial Blood Partial Pressure O2 104 Arterial Blood Oxygen Content 14.4 Arterial Blood Carboxyhemoglobin 1.3 Arterial Blood Methemoglobin 1.3 Blood Gas Hemoglobin 10.7 Oxygen Delivery Device NASAL CANNULA Blood Gas Liter Flow 3 Date/Time Source Procedure Growth Status 11/16/17 23:45 Blood Peripheral Aerobic Blood Culture - Preliminary NO GROWTH IN 4 DAYS Resulted 11/16/17 23:45 Blood Peripheral Anaerobic Blood Culture - Preliminary NO GROWTH IN 4 DAYS Resulted 11/18/17 14:25 Stool Stool Stool Occult Blood (KIM) - Final HEMOCCULT POSITIVE Complete Imaging Last Impressions Chest X-Ray 11/20/17 0600 Signed Impressions: Service Date/Time: October 04:36 - CONCLUSION: Bibasilar infiltrates, left greater than right. Víctor Bates MD Abdomen X-Ray 11/20/17 0000 Signed Impressions: Service Date/Time: October 10:33 - CONCLUSION: No bowel obstruction or ileus. Swapnil Saldaña MD Chest CT 11/19/17 0000 Signed Impressions: Service Date/Time: Sunday, November 19, 2017 17:10 - CONCLUSION: Minimal consolidative changes as above Small pleural effusions. Luis A Castillo MD FACR Abdomen/Pelvis CT 11/19/17 0000 Signed Impressions: Service Date/Time: Sunday, November 19, 2017 17:10 - CONCLUSION: Trace ascites or subcapsular fluid around liver Prominent gallbladder Luis A Castillo MD FACR Abdomen Ultrasound 11/17/17 0000 Signed Impressions: Service Date/Time: Friday, November 17, 2017 08:01 - CONCLUSION: Negative for occlusion or significant stenosis. Luis A Castillo MD FACR Physical Exam ill appearing HEENT: Normocephalic; atraumatic CHEST: coarse, wet cough CARDIAC: Sinus tachycardia ABDOMEN: Soft, mildly distended, mild diffuse TTP;bowel sounds hypoactive. NGT to LIWS liquid brown stool in collection bag EXTREMITIES: No clubbing, cyanosis, or edema. SKIN: Normal; no rash; no jaundice. SPRAY CEMENTER: Awake, confused (Karime Montano) Assessment and Plan Plan ASSESSMENT - Abdominal pain and distention- KUB (11/17) --> No signs of obstruction, ileus or perforation. US abd SMA/Celiac --> Negative for occlusion or significant stenosis. - Anemia- macrocytic- H/H dropped to 6.7/20.2 yesterday- received one unit PRBCs- currently 05/26.9. No signs of GIB via NGT or rectal output. 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 Going down for CT abdomen/pelvis now. 11/20/17 KUB no ileus or obstruction. CT showed trace ascites or subcapsular fluid around liver, prominent GB abd softer today. pt seems confused, nonverbal. not stable for procedures. going for head CT. change mental status, seems to be deteriorating PLAN - d/c HIDA - NGT to LIWS - Rectal tube to collection bag - EGD/colonoscopy when stable - Monitor H/H - Transfuse per CCM - Notify GI of active bleeding - TPN - Pepcid - GI will sign off, please reconsult when needed Pt has been seen and examined by myself and Dr. Howell and this note is written on her behalf (Karime Montano) Physician Comments seen, examined agree with above reconsult gi when clinically more stable for egd/colonoscopy ok for hida scan when stable (Ina Howell MD) Karime Montano Nov 20, 2017 11:49 Ina Howell MD Nov 20, 2017 15:57
--- NOTE | 2017-11-20 11:58 | RADRPT ---
EXAM DATE/TIME: 11/20/2017 11:29 [facility] COMPARISON: No previous studies available for comparison. INDICATIONS : Altered mental status RADIATION DOSE: 66.34 CTDIvol (mGy) MEDICAL HISTORY : Cardiovascular disease. Hypertension. Chronic obstructive pulmonary disease.Anemia SURGICAL HISTORY : Tubal ligation. ENCOUNTER: Initial ACUITY: 1 day PAIN SCALE: Non-responsive LOCATION: cranial TECHNIQUE: Multiple contiguous axial images were obtained of the head. Using automated exposure control and adj ustment of the mA and/or kV according to patient size, radiation dose was kept as low as reasonably a chievable to obtain optimal diagnostic quality images. DICOM format image data is available electro nically for review and comparison. FINDINGS: CEREBRUM: The ventricles are normal for age. No evidence of midline shift, mass lesion, hemorrhage or acute in farction. No extra-axial fluid collections are seen. POSTERIOR FOSSA: There is focal decreased attenuation involving the right armin raising the possibility of lacunar infa rct or ischemic change. The cerebellum is intact. The 4th ventricle is midline. The cerebellopontin e angle is unremarkable. EXTRACRANIAL: The visualized portion of the orbits is intact. Small fluid level is noted within the right sphenoid sinus. SKULL: The calvaria is intact. No evidence of skull fracture. CONCLUSION: 1. Focal decreased attenuation involving the right armin consistent with lacunar infarct or ischemic c hange. 2. No acute hemorrhage, midline shift or extra-axial fluid collections. 3. Small fluid level within the right sphenoid sinus. Swapnil Saldaña MD on November 20, 2017 at 11:53 Board Certified Radiologist. This report was verified electronically.
[2017-11-20] MEDS ORDERED: VANCOMYCIN INJ 1,250 MG in SODIUM CHLOR 0.9% 250 ML INJ 250 ML IV ONE (12:00)
--- NOTE | 2017-11-20 12:56 | RADRPT ---
EXAM DATE/TIME: 11/20/2017 11:48 [facility] COMPARISON: No previous studies available for comparison. INDICATIONS : History of DVT September 2017. Sepsis, Acute kidney injury, Lactic acidosis. MEDICAL HISTORY : Hypertension. Chronic obstructive pulmonary disease. Arthritis. Anemia, chronic ITP, left popliteal e mbolectomy. SURGICAL HISTORY : Splenectomy. section. Bone marrow biopsy. ENCOUNTER: Initial ACUITY: 1 day PAIN SCORE: Non-responsive LOCATION: Bilateral lower extremities. TECHNIQUE: Venous ultrasound of the left and right leg was performed from the inguinal ligament to the proximal calf. Real-time, color Doppler and spectral tracing, compression and augmentation techniques were us ed. FINDINGS: RIGHT LEG: There is normal compressibility of the deep venous system from the inguinal region to the proximal ca lf. No echogenic clot is seen in the lumen of the common femoral, femoral, popliteal, and posterior tibial veins. There is a normal response of the venous system to proximal and distal augmentation an d respiration. Focal fluid collection behind the right knee measuring 2.0 x 1.3 cm. LEFT LEG: There is normal compressibility of the deep venous system from the inguinal region to the proximal ca lf. No echogenic clot is seen in the lumen of the common femoral, femoral, popliteal, and posterior tibial veins. There is a normal response of the venous system to proximal and distal augmentation an d respiration. CONCLUSION: 1. No evidence of DVT. 2. Small right Stovall's cyst. Keven Lake MD on November 20, 2017 at 12:53 Board Certified Radiologist. This report was verified electronically.
[2017-11-20] MEDS: DILTIAZEM HCL 60 MG TAB PO SCH ×3 (12:57→23:24)
--- NOTE | 2017-11-20 14:31 | HHI.PR ---
cc: Leo Dunhma MD Subjective Subjective Notes RN at bedside-- concerned about increased lethargy ---planning to go for Head CT soon Objective Vitals/I&O Vital Signs Date Time Temp Pulse Resp B/P (MAP) Pulse Ox O2 Delivery O2 Flow Rate FiO2 11/20/17 12:15 18 11/20/17 12:00 140 11/20/17 12:00 97.6 159/90 (113) 100 11/20/17 09:10 Nasal Cannula 3.00 Labs Laboratory Tests Test 11/19/17 16:02 11/19/17 16:45 11/20/17 06:05 11/20/17 09:38 Blood Gas Puncture Site RT RADIAL Blood Gas Patient Temperature 98.6 Blood Gas HCO3 23 Blood Gas Base Excess -1.5 Blood Gas Oxygen Saturation 95 Arterial Blood pH 7.39 Arterial Blood Partial Pressure CO2 39 Arterial Blood Partial Pressure O2 106 Arterial Blood Oxygen Content 13.8 Arterial Blood Carboxyhemoglobin 1.3 Arterial Blood Methemoglobin 1.5 Blood Gas Hemoglobin 10.2 Oxygen Delivery Device NASAL CANNULA Blood Gas Liter Flow 3 Hemoglobin 9.0 9.4 Hematocrit 26.1 27.0 Prothrombin Time 13.2 Prothromb Time International Ratio 1.3 Lactic Acid Level 0.9 White Blood Count 4.2 Red Blood Count 2.43 Mean Corpuscular Volume 111.3 Mean Corpuscular Hemoglobin 38.8 Mean Corpuscular Hemoglobin Concent 34.9 Red Cell Distribution Width 23.3 Platelet Count 43 Mean Platelet Volume 11.7 CBC Comment AUTO DIFF Differential Total Cells Counted 100 Neutrophils % (Manual) 55 Band Neutrophils % 29 Lymphocytes % 9 Monocytes % 6 Eosinophils % 1 Neutrophils # (Manual) 3.5 Nucleated Red Blood Cells 1 Differential Comment FINAL DIFF MANUAL Dohle Bodies PRESENT Platelet Estimate LOW Platelet Morphology Comment NORMAL Ybarra-Dilkon Bodies PRESENT Blood Urea Nitrogen 52 Creatinine 2.11 Random Glucose 124 Total Protein 5.6 Calcium Level 7.1 Phosphorus Level 2.9 Magnesium Level 1.7 Sodium Level 146 Potassium Level 3.4 Chloride Level 109 Carbon Dioxide Level 26.1 Anion Gap 11 Estimat Glomerular Filtration Rate 23 Protein Corrected Calcium 7.9 Total Bilirubin 0.7 Direct Bilirubin 0.1 Indirect Bilirubin 0.6 Aspartate Amino Transf (AST/SGOT) 107 Alanine Aminotransferase (ALT/SGPT) 20 Alkaline Phosphatase 74 Albumin 2.7 Random Vancomycin Level 10.3 Activated Partial Thromboplast Time 44.6 Test 11/20/17 09:40 Blood Gas Puncture Site LT RADIAL Blood Gas Patient Temperature 98.6 Blood Gas HCO3 25 Blood Gas Base Excess 1.0 Blood Gas Oxygen Saturation 95 Arterial Blood pH 7.40 Arterial Blood Partial Pressure CO2 42 Arterial Blood Partial Pressure O2 104 Arterial Blood Oxygen Content 14.4 Arterial Blood Carboxyhemoglobin 1.3 Arterial Blood Methemoglobin 1.3 Blood Gas Hemoglobin 10.7 Oxygen Delivery Device NASAL CANNULA Blood Gas Liter Flow 3 Date/Time Source Procedure Growth Status 11/16/17 23:45 Blood Peripheral Aerobic Blood Culture - Preliminary NO GROWTH IN 4 DAYS Resulted 11/16/17 23:45 Blood Peripheral Anaerobic Blood Culture - Preliminary NO GROWTH IN 4 DAYS Resulted 11/18/17 14:25 Stool Stool Stool Occult Blood (KIM) - Final HEMOCCULT POSITIVE Complete Radiology Last 48 hours Impressions Abdomen/Pelvis CT 11/17/17 0000 Signed Impressions: Service Date/Time: Friday, November 17, 2017 01:08 - CONCLUSION: 1. Distended stomach. 2. Fluid distended colon without dilated loops of small bowel. Víctor Bates MD Abdomen X-Ray 11/17/17 0000 Signed Impressions: Service Date/Time: Friday, November 17, 2017 07:37 - CONCLUSION: No bowel obstruction, ileus or perforation. Swapnil Saldaña MD Abdomen Ultrasound 11/17/17 0000 Signed Impressions: Service Date/Time: Friday, November 17, 2017 08:01 - CONCLUSION: Negative for occlusion or significant stenosis. Luis A Castillo MD FACR Chest X-Ray 11/16/17 2296 Signed Impressions: Service Date/Time: Thursday, November 16, 2017 23:51 - CONCLUSION: Hyperaerated lungs. No infiltrates seen. Víctor Bates MD Cardiovascular: Regular Lungs: Clear Abdomen: Other (tender throughout; NGT to LIWS ) Extremities: No edema A/P Assessment and Plan 67 year old female with abdominal pain; lactic acidosis -Acidosis corrected -Repeat CT reviewed---shows prominent gallbladder; HIDA ordered for today -Head CT today -NGT to LIWS -PPN -Maintain rectal tube -Hematology following --- on Argatroban -No acute surgical intervention needed at this time Attending Statement patient seen at bedside abd soft mild ttp rectal tube in place with stool axr without significant obstruction Attestation The exam, history, and the medical decision-making described in the above note were completed with the assistance of the mid-level provider. I reviewed and agree with the findings presented. I attest that I had a [id number] encounter with the patient on the same day, and personally performed and documented my assessment and findings in the medical record. Nicky Neil. ADVERTISING PRODUCTION MANAGER/First Lissa MORA Nov 20, 2017 14:31 Leo Dunham MD Nov 23, 2017 20:29
--- NOTE | 2017-11-20 15:04 | MB ---
cc: Rojelio Hyman MD DATE: 11/20/2017 HISTORY OF PRESENT ILLNESS: The patient is a 67-year-old right-handed woman with hypertension, ITP, baseline platelet counts usually 75,000; has had her spleen removed in 2009, a DVT in September, was taking Eliquis at home, atrial fibrillation developed in the hospital. She takes Vicodin daily for back pain and compression fractures and neck pain. She was admitted with abdominal pain and then seemed to be doing fine neurologically Friday and then on Friday, her came in and she was much less responsive and that has continued over the last several days. She did talk to her son a little bit and said "I love you" to him and also heard a sound and said "What the hell was that", but otherwise has not been interacting very much today with some labored breathing. She does have some baseline COPD and is oxygen dependent at home. REVIEW OF SYSTEMS: According to the , no diabetes, hypercholesterolemia, HI, stent angioplasty, past history of atrial fibrillation although there is atrial fibrillation in the hospital here now, renal, hepatic disease, thyroid disease, lupus, ulcer, cancer prior seizure or stroke. SOCIAL HISTORY: She quit smoking 2 years ago. Not a drinker. Lives with her . FAMILY HISTORY: Positive for cancer. Negative for seizure, stroke. CURRENT MEDICATIONS: She is on diltiazem. She was on vancomycin, that has been stopped. She is on Lasix, that was stopped. She is on Dilaudid. She got some today at 11:45. She is on Pepcid, Argatroban, Cefepime, metronidazole and Spiriva. PHYSICAL EXAMINATION: VITAL SIGNS: Afebrile, 140, 159/90, 18. NECK: There were no carotid bruits. HEART: Regular rate and rhythm. I do not detect a murmur. LUNGS: She has got some labored breathing with a respiratory rate at about 12, but whole body lifts up with respirations. No stridor. She is not intubated. NEUROLOGIC: Her eyes are somewhat up at the ceiling and slightly backwards. She does not react to threat. She will, however, when her son comes over and says "hello ma" say "I love you" to him. She did stick her tongue out or attempted for me and wiggled her toes to command bilaterally for me, but would not just wiggle her right foot. Other commands, she does not follow. Her tone is normal throughout. She appears to have some severe asterixis when I hold her arms up bilaterally. There is no ankle clonus. The left toe may be upgoing and the right is down. LABORATORY DATA: White count is 4.2; hematocrit 27; platelet count is 43,000. UA negative. Coags: PTT is 44. Sodium is 146, BUN is 52, creatinine 2.1. She had a normal creatinine of 0.66 in September, but on 11/16/2017 when she was admitted, it was 2.1. Corrected calcium 7.9. Phosphorus and magnesium normal. LFTs are minimally elevated and AST of 107, ALT is normal. Ammonia level was less than 10 yesterday. Albumin is 2.7. TSH normal. ABG this morning at 9:00 a.m. 7.4/42/104. She has had ABGs all week, which appear normal except initially she had acidosis at 7.29. ASSESSMENT AND PLAN: It looks like more of a metabolic encephalopathy. I wonder with guaiac positive, possibly GI bleed. I note her ammonia yesterday was normal. We will check an MRI of the brain, they suggest a possible right pontine or looking at it right cerebral peduncle infarct; however, I think probably more artifactual. We will also check an EEG. Recheck her ammonia level and a CPK level but probably this is more of a metabolic encephalopathy, but we will see what the MRI shows. I would hold her narcotics for now. MD BRITTANIE Ca/MERARY , 02:09 PM , 03:03 PM
[2017-11-20] MEDS ORDERED: LORazepam 2 MG/ML VIAL IV ONE (16:30)
--- NOTE | 2017-11-20 16:47 | MG ---
cc: Jesse Carbajal MD, Olimpio F MD A stat EEG was obtained on this 67-year-old patient being evaluated for lethargy and decreased responsiveness. The patient is described as awake. This EEG shows prominent theta and delta rhythms bilaterally. There is a lack of alpha activity. There is associated movement artifact. There is no rhythmic activity to suspect ongoing ictal pattern. There is a description of some head jerk, leg movement, moaning and arm jerking intermittently. Photic stimulation disclosed no change. INTERPRETATION: Abnormal EEG because of prominent bihemispheric slowing. There are some intermixed slow sharp waves, but no distinct paroxysmal discharges. The pattern suggests severe bilateral abnormalities, either metabolic or structural. The possibility of a postictal abnormality evidently cannot be excluded, but no ictal activity on this recording. Jesse Renteria. MD Solomon [facility]/rh , 04:17 PM , 04:34 PM
--- NOTE | 2017-11-20 16:48 | PD.ONC.PN ---
Subjective Subjective Remarks Afebrile overnight Patient lethargic in bed with at bedside Per RN, she is going down for MRI of the brain No bleeding Objective Data Date Time Temp Pulse Resp B/P (MAP) Pulse Ox O2 Delivery O2 Flow Rate FiO2 11/20/17 16:00 123 11/20/17 16:00 97.4 123 24 156/90 (112) 96 11/20/17 14:00 105 11/20/17 12:15 18 11/20/17 12:00 140 11/20/17 12:00 97.6 140 18 159/90 (113) 100 11/20/17 10:00 170 11/20/17 09:10 100 Nasal Cannula 3.00 11/20/17 08:00 97.8 131 22 169/108 (128) 100 11/20/17 08:00 131 11/20/17 06:00 103 11/20/17 04:00 99.0 112 31 171/98 (122) 98 11/20/17 04:00 112 11/20/17 02:00 107 11/20/17 00:00 109 11/20/17 00:00 99.1 109 12 158/82 (107) 97 11/19/17 22:00 107 11/19/17 20:00 114 11/19/17 20:00 99.3 114 41 170/117 (134) 100 11/19/17 18:00 137 11/20/17 11/20/17 11/20/17 07:00 15:00 23:00 Intake Total 100 ml Output Total 1000 ml Balance -900 ml Result Diagram: 11/20/1760411/20/17604 Laboratory Results Laboratory Tests Test 11/19/17 16:45 11/20/17 06:05 11/20/17 09:38 11/20/17 09:40 Hemoglobin 9.0 GM/DL 9.4 GM/DL Hematocrit 26.1 % 27.0 % Prothrombin Time 13.2 SEC Prothromb Time International Ratio 1.3 RATIO Lactic Acid Level 0.9 mmol/L White Blood Count 4.2 TH/MM3 Red Blood Count 2.43 MIL/MM3 Mean Corpuscular Volume 111.3 FL Mean Corpuscular Hemoglobin 38.8 PG Mean Corpuscular Hemoglobin Concent 34.9 % Red Cell Distribution Width 23.3 % Platelet Count 43 TH/MM3 Mean Platelet Volume 11.7 FL CBC Comment AUTO DIFF Differential Total Cells Counted 100 Neutrophils % (Manual) 55 % Band Neutrophils % 29 % Lymphocytes % 9 % Monocytes % 6 % Eosinophils % 1 % Neutrophils # (Manual) 3.5 TH/MM3 Nucleated Red Blood Cells 1 /100 WBC Differential Comment FINAL DIFF MANUAL Dohle Bodies PRESENT Platelet Estimate LOW Platelet Morphology Comment NORMAL Ybarra-Trommald Bodies PRESENT Blood Urea Nitrogen 52 MG/DL Creatinine 2.11 MG/DL Random Glucose 124 MG/DL Total Protein 5.6 GM/DL Calcium Level 7.1 MG/DL Phosphorus Level 2.9 MG/DL Magnesium Level 1.7 MG/DL Sodium Level 146 MEQ/L Potassium Level 3.4 MEQ/L Chloride Level 109 MEQ/L Carbon Dioxide Level 26.1 MEQ/L Anion Gap 11 MEQ/L Estimat Glomerular Filtration Rate 23 ML/MIN Protein Corrected Calcium 7.9 MG/DL Total Bilirubin 0.7 MG/DL Direct Bilirubin 0.1 MG/DL Indirect Bilirubin 0.6 MG/DL Aspartate Amino Transf (AST/SGOT) 107 U/L Alanine Aminotransferase (ALT/SGPT) 20 U/L Alkaline Phosphatase 74 U/L Albumin 2.7 GM/DL Random Vancomycin Level 10.3 COMMENT Activated Partial Thromboplast Time 44.6 SEC Blood Gas Puncture Site LT RADIAL Blood Gas Patient Temperature 98.6 Blood Gas HCO3 25 mmol/L Blood Gas Base Excess 1.0 mmol/L Blood Gas Oxygen Saturation 95 % Arterial Blood pH 7.40 Arterial Blood Partial Pressure CO2 42 mmHg Arterial Blood Partial Pressure O2 104 mmHg Arterial Blood Oxygen Content 14.4 Vol % Arterial Blood Carboxyhemoglobin 1.3 % Arterial Blood Methemoglobin 1.3 % Blood Gas Hemoglobin 10.7 G/DL Oxygen Delivery Device NASAL CANNULA Blood Gas Liter Flow 3 L/M Test 11/20/17 14:21 Activated Partial Thromboplast Time 46.5 SEC Culture Results Microbiology Date/Time Source Procedure Growth Status 11/18/17 14:25 Stool Stool Stool Occult Blood (KIM) - Final HEMOCCULT POSITIVE Complete 11/18/17 14:25 Stool Stool Stool Occult Blood (KIM) Pending Ordered 11/18/17 14:25 Stool Stool Stool Occult Blood (KIM) Pending Ordered Imaging Studies Last 24 hours Impressions Chest X-Ray 11/20/17 0600 Signed Impressions: Service Date/Time: October 04:36 - CONCLUSION: Bibasilar infiltrates, left greater than right. Víctor Bates MD Lower Extremity Ultrasound 11/20/17 0000 Signed Impressions: Service Date/Time: October 11:48 - CONCLUSION: 1. No evidence of DVT. 2. Small right Stovall's cyst. Keven Lake MD Head CT 11/20/17 0000 Signed Impressions: Service Date/Time: October 11:29 - CONCLUSION: 1. Focal decreased attenuation involving the right armin consistent with lacunar infarct or ischemic change. 2. No acute hemorrhage, midline shift or extra-axial fluid collections. 3. Small fluid level within the right sphenoid sinus. Swapnil Saldaña MD Abdomen X-Ray 11/20/17 0000 Signed Impressions: Service Date/Time: October 10:33 - CONCLUSION: No bowel obstruction or ileus. Swapnil Saldaña MD Administered Medications Medications (Trade) Dose Ordered Sig/Colton Route PRN Reason Start Time Stop Time Status Last Admin Dose Admin Sodium Chloride (NS Flush) 2 ml UNSCH PRN IV FLUSH FLUSH AFTER USING IV ACCESS 11/17/17 06:45 11/17/17 08:29 Sodium Chloride (NS Flush) 2 ml BID IV FLUSH 11/17/17 09:00 11/20/17 08:38 Albuterol/ Ipratropium (Duoneb Neb) 1 ampule Q4HR NEB PRN INH WHEEZING 11/17/17 06:45 11/19/17 12:31 Miscellaneous Information 1 Q361D XX 11/17/17 06:45 11/17/17 06:45 Chlorhexidine Gluconate (Chlorhexidine 2% Cloth) 3 pack Taper DAILY@04 TOP 11/18/17 04:00 11/14/18 03:59 11/20/17 04:00 Senna/Docusate Sodium (Rita-Colace) 1 tab BID PO 11/17/17 09:00 11/20/17 08:37 Sennosides (Senokot) 17.2 mg Q12H PRN PO Moderate constipation 11/17/17 06:45 11/17/17 09:11 Lactulose (Lactulose Liq) 30 ml DAILY PRN PO SEVERE CONSITIPATION 11/17/17 06:45 11/17/17 09:11 Albuterol Sulfate (Albuterol Neb) 2.5 mg Q4HR NEB PRN NEB SHORTNESS OF BREATH 11/17/17 07:45 11/18/17 00:23 Budesonide (Pulmicort Respule Neb) 0.25 mg DAILY NEB NEB 11/17/17 08:00 11/20/17 08:28 Cefepime HCl 2000 mg/Sodium Chloride 100 ml @ 200 mls/hr Q24H IV 11/18/17 09:00 11/20/17 08:37 Metronidazole 100 ml @ 100 mls/hr Q8H IV 11/17/17 20:00 11/20/17 12:56 Argatroban 250 mg/ Sodium Chloride 252.5 ml @ 1.92 mls/hr TITRATE PRN IV aPTT < 50 11/18/17 12:45 11/18/17 14:44 Famotidine (Pepcid Inj) 10 mg Q12HR IV PUSH 11/18/17 21:00 11/20/17 08:37 Sodium Chloride 5.5 meq/Sodium Acetate 29.5 meq/ Potassium Chloride 20 meq/ Magnesium Chloride 5 meq/ Calcium Chloride 4.5 meq/ Multivitamins 10 ml/Folic Acid 1 mg/Amino Acids/ Dextrose 1,042.1719 ml @ 42 mls/hr Q24H IV 11/19/17 20:00 11/19/17 20:17 Fat Emulsion Intravenous 250 ml @ 10 mls/hr Q24H IV 11/19/17 20:00 11/19/17 20:17 Diltiazem HCl (Cardizem) 60 mg Q6HR PO 11/20/17 12:00 11/20/17 12:57 Objective Remarks GENERAL: Lethargic elderly female, supine in bed. SKIN: Warm and dry. HEAD: Normocephalic. Xerostomia EYES: No injection or drainage. NECK: Supple, trachea midline. CARDIOVASCULAR: Regular rate and rhythm RESPIRATORY: Breath sounds equal bilaterally. No accessory muscle use. GASTROINTESTINAL: Abdomen soft, tender to palpation throughout, distended EXTREMITIES: No cyanosis, or edema. MUSCULOSKELETAL: Adequate muscle tone. NEUROLOGICAL: Lethargic. Not currently following commands. Assessment/Plan Problem List: (1) Idiopathic thrombocytopenia purpura ICD Codes: D69.3 - Immune thrombocytopenic purpura Status: Acute Plan: --platelets may be lower due to consumption. --had splenectomy in 2009. --was treated with Nplate in the past with good response. --per , patient's baseline is between 50-70K and she has not required treatment for ITP since spleen removal several years ago. --platelet count has been fluctuating between 40,000-70,000. --no indication to start treatment for the idiopathic thrombocytopenic purpura at this point. (2) Arterial occlusion ICD Codes: I70.90 - Unspecified atherosclerosis Plan: --started on Argatroban on 11/18 --History of left popliteal arterial occlusion, likely an embolic event. --had embolectomy in September of this year. then started on Pradaxa, but later switched to Xarelto. --presented with abdominal pain and could have ischemic bowel (3) Abdominal pain ICD Codes: R10.9 - Unspecified abdominal pain Status: Acute Plan: --presented with acute severe abdominal pain. --CT did not show any bowel obstruction. --Ultrasound also negative for occlusion or stenosis. 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 h/o Chronic anemia. Chronic back pain. Multiple compression fractures. Chronic obstructive pulmonary disease. Hypertension. Left popliteal arterial occlusion. Plan 1. Continue argatroban 2. Platelets mildly improved today 3. Continue to monitor CBC, liver enzymes Attending Statement The exam, history, and the medical decision-making described in the above note were completed with the assistance of the mid-level provider. I reviewed and agree with the findings presented. I attest that I had a [id number] encounter with the patient on the same day, and personally performed and documented my assessment and findings in the medical record. Late entry. Patient was confused when I saw her. No bleeding noted. Platelet trended up slightly. Hgb stable. No need to treat ITP yet. Continue to monitor. Discussed with pt's . Problem Qualifiers (1) Abdominal pain: Qualified Codes: R10.84 - Generalized abdominal pain Cortney Mahmood Nov 20, 2017 16:48 Braden Luong MD Nov 21, 2017 07:08
[2017-11-20] MEDS ORDERED: DILTIAZEM HCL 50 MG/10 ML VIAL IV ONE (17:30)
[2017-11-20] MEDS: FAT EMULSION 20% INJ 250 ML (@10 mls/hr) IV SCH (19:44)
[2017-11-20] MEDS: CLINIMIX 4.25/5 (Cust.Renal Periph) 1000 mL- </= 42 mls/hr IV SCH ×8 (19:44)
[2017-11-20] MEDS: RIFAXIMIN 550 MG TAB PO SCH (19:45)
[2017-11-20] MEDS: RESP: ALBUTEROL 2.5 MG/3 ML NEB (PRN) NEB (21:23)
--- NOTE | 2017-11-20 22:05 | RADRPT ---
EXAM DATE/TIME: 11/20/2017 20:54 [facility] COMPARISON: No previous studies available for comparison. INDICATIONS : CVA. Altered mental status. MEDICAL HISTORY : Chronic obstructive pulmonary disease. Hypertension. SURGICAL HISTORY : Tubal ligation. Right hip replacement and spleenectomy. ENCOUNTER: Initial ACUITY: 1 day PAIN SCORE: 0/10 LOCATION: Head. TECHNIQUE: Multiplanar, multisequence MRI of the brain was performed without contrast. FINDINGS: CEREBRUM: The ventricles are normal for age. No evidence of midline shift, mass lesion, hemorrhage or acute in farction. No extraaxial fluid collections are seen. The pituitary gland and suprasellar cistern are normal in configuration. WHITE MATTER: No significant signal abnormalities are seen in the white matter. POSTERIOR FOSSA: The cerebellum and brainstem are intact. The 4th ventricle is midline. The cerebellopontine angle is unremarkable. The cerebellar tonsils are normal in position. DIFFUSION IMAGING: No focal areas of restricted diffusion are seen. No evidence of acute infarction. EXTRACRANIAL: The visualized portions of the orbits and paranasal sinuses are unremarkable. CONCLUSION: 1. No acute intracranial abnormality. Right-sided mastoid air cell disease. No recent infarct, mass e ffect or shift. Roby Brito MD on November 20, 2017 at 22:00 Board Certified Radiologist. This report was verified electronically.
[2017-11-20] MEDS: POTASSIUM CHLOR 20 MEQ PREMIX 100 ML IV SCH (23:24)
[2017-11-21] VITALS (14 sets, daily range): BP systolic 123–168; BP diastolic 65–107; PULSE 102–145; RESP 27–44; TEMP 97.4–99; O2SAT 94–100
[2017-11-21] MEDS: RESP: ALBUTEROL 2.5 MG/3 ML NEB (PRN) NEB (01:45)
[2017-11-21] MEDS: POTASSIUM CHLOR 20 MEQ PREMIX 100 ML IV SCH (02:10)
[2017-11-21] MEDS: CHLORHEXIDINE GLUCONATE 2 % 1 PACK (2 CLOTHS) TOP SCH ×2 (03:54→22:54)
[2017-11-21] MEDS: metroNIDAZOLE 500 MG INJ 100 ML IV SCH ×3 (03:54→21:42)
[2017-11-21] MEDS: RESP: ALBUTEROL 2.5 MG/3 ML NEB (SCH) INH ×5 (04:22→19:10)
[2017-11-21] MEDS: DILTIAZEM HCL 60 MG TAB PO SCH ×4 (06:08→23:25)
[2017-11-21 06:28] LABS: HEMATOCRIT 27.8 % (35.0-46.0); HEMOGLOBIN 10.1 GM/DL (11.6-15.3); MEAN CORPUSCULAR HEMOGLOBIN 39.5 PG (27.0-34.0); MEAN PLATELET VOLUME 8.6 FL (7.0-11.0); PLATELET COUNT 23 TH/MM3 (150-450); RED BLOOD COUNT 2.55 MIL/MM3 (4.00-5.30); RED CELL DISTRIBUTION WIDTH 22.6 % (11.6-17.2); WHITE BLOOD COUNT 5.6 TH/MM3 (4.0-11.0)
[2017-11-21 06:31] LABS: MEAN CORPUSCULAR HGB CONC 36.2 % (32.0-36.0)
[2017-11-21 06:50] LABS: ALBUMIN 2.6 GM/DL (3.4-5.0); AST (GOT) 78 U/L (15-37); BICARBONATE 29.3 MEQ/L (21.0-32.0); BLOOD UREA NITROGEN 56 MG/DL (7-18); CALCIUM 7.5 MG/DL (8.5-10.1); CHLORIDE 106 MEQ/L (98-107); CREATININE 1.77 MG/DL (0.50-1.00); GLOMERULAR FILTRATION RATE 28 ML/MIN (>89); GLUCOSE,RANDOM 150 MG/DL (74-106); SODIUM (NA) 144 MEQ/L (136-145)
[2017-11-21 06:51] LABS: ALT (GPT) 18 U/L (10-53)
[2017-11-21 06:53] LABS: ALKALINE PHOSPHATASE 66 U/L (45-117); TOTAL BILIRUBIN ADULT 0.9 MG/DL (0.2-1.0); TOTAL PROTEIN 5.6 GM/DL (6.4-8.2)
--- NOTE | 2017-11-21 07:48 | HHI.PR ---
Objective Vital Signs Date Time Temp Pulse Resp B/P (MAP) Pulse Ox O2 Delivery O2 Flow Rate FiO2 11/21/17 06:00 145 11/21/17 04:00 102 11/21/17 04:00 99.0 102 27 146/89 (108) 100 11/21/17 02:00 114 11/21/17 00:00 133 11/21/17 00:00 99.0 133 28 137/65 (89) 100 11/20/17 22:00 124 11/20/17 21:25 100 Nasal Cannula 5.00 11/20/17 20:00 104 11/20/17 20:00 99.5 104 51 133/61 (85) 99 11/20/17 18:00 139 11/20/17 16:00 123 11/20/17 16:00 97.4 123 24 156/90 (112) 96 11/20/17 15:01 124 33 151/112 (125) 97 11/20/17 14:00 105 11/20/17 14:00 105 33 151/74 (99) 98 11/20/17 13:00 130 25 170/120 (137) 100 11/20/17 12:15 18 11/20/17 12:00 140 11/20/17 12:00 97.6 140 18 159/90 (113) 100 11/20/17 11:00 137 27 131/70 (90) 98 11/20/17 10:00 170 11/20/17 10:00 170 27 133/93 (106) 99 11/20/17 09:10 100 Nasal Cannula 3.00 11/20/17 09:00 143 25 165/93 (117) 99 11/20/17 08:00 97.8 131 22 169/108 (128) 100 11/20/17 08:00 131 I/O 11/20/17 11/20/17 11/20/17 11/21/17 11/21/17 11/21/17 07:00 15:00 23:00 07:00 15:00 23:00 Intake Total 100 ml 400 ml 1731.6719 ml 300 ml Output Total 1000 ml 1200 ml 1725 ml Balance -900 ml 400 ml 531.6719 ml -1425 ml Intake Oral 0 ml IV Total 100 ml 400 ml 1731.6719 ml 300 ml Output Urine Total 1000 ml 900 ml 1675 ml Stool Total 0 ml 50 ml 50 ml Gastric Drainage Total 0 ml 250 ml 0 ml Result Diagram: 11/21/17 0600 11/21/17 0600 Objective Remarks still encephalopathic talks some not really follow commands well moves ble a lot inc rr restless Assessment and Plan Assessment and Plan imp mri nl eeg metabolic nh3 46 i suspect all metabolic and if we gave her narcan and mazicon she would awaken well should improve as med condition does Rojelio Hyman MD Nov 21, 2017 07:48
[2017-11-21] MEDS: RESP: BUDESONIDE 0.25 MG/2 ML NEB NEB SCH ×2 (08:08→19:11)
--- NOTE | 2017-11-21 08:27 | PD.ONC.PN ---
Subjective Subjective Remarks Lethargic but arousable. Confused. Denies pain. at the bedside. Objective Data Date Time Temp Pulse Resp B/P (MAP) Pulse Ox O2 Delivery O2 Flow Rate FiO2 11/21/17 08:09 96 Nasal Cannula 2.00 11/21/17 06:00 145 11/21/17 04:00 102 11/21/17 04:00 99.0 102 27 146/89 (108) 100 11/21/17 02:00 114 11/21/17 00:00 133 11/21/17 00:00 99.0 133 28 137/65 (89) 100 11/20/17 22:00 124 11/20/17 21:25 100 Nasal Cannula 5.00 11/20/17 20:00 104 11/20/17 20:00 99.5 104 51 133/61 (85) 99 11/20/17 18:00 139 11/20/17 16:00 123 11/20/17 16:00 97.4 123 24 156/90 (112) 96 11/20/17 15:01 124 33 151/112 (125) 97 11/20/17 14:00 105 11/20/17 14:00 105 33 151/74 (99) 98 11/20/17 13:00 130 25 170/120 (137) 100 11/20/17 12:15 18 11/20/17 12:00 140 11/20/17 12:00 97.6 140 18 159/90 (113) 100 11/20/17 11:00 137 27 131/70 (90) 98 11/20/17 10:00 170 11/20/17 10:00 170 27 133/93 (106) 99 11/20/17 09:10 100 Nasal Cannula 3.00 11/20/17 09:00 143 25 165/93 (117) 99 11/21/17 11/21/17 11/21/17 07:00 15:00 23:00 Intake Total 300 ml Output Total 1725 ml Balance -1425 ml Result Diagram: 11/21/17 0600 11/21/17 0600 Laboratory Results Laboratory Tests Test 11/20/17 09:38 11/20/17 09:40 11/20/17 14:21 11/20/17 17:27 Activated Partial Thromboplast Time 44.6 SEC 46.5 SEC Blood Gas Puncture Site LT RADIAL Blood Gas Patient Temperature 98.6 Blood Gas HCO3 25 mmol/L Blood Gas Base Excess 1.0 mmol/L Blood Gas Oxygen Saturation 95 % Arterial Blood pH 7.40 Arterial Blood Partial Pressure CO2 42 mmHg Arterial Blood Partial Pressure O2 104 mmHg Arterial Blood Oxygen Content 14.4 Vol % Arterial Blood Carboxyhemoglobin 1.3 % Arterial Blood Methemoglobin 1.3 % Blood Gas Hemoglobin 10.7 G/DL Oxygen Delivery Device NASAL CANNULA Blood Gas Liter Flow 3 L/M Potassium Level 3.4 MEQ/L Ammonia 46 MCMOL/L Total Creatine Kinase 386 U/L Creatine Kinase MB 6.1 NG/ML Creatine Kinase MB % 1.6 % Vitamin B12 Level GREATER THAN 2000 PG/ML Test 11/20/17 21:20 11/21/17 06:00 Blood Gas Puncture Site RT RADIAL Blood Gas Patient Temperature 98.6 Blood Gas HCO3 30 mmol/L Blood Gas Base Excess 5.2 mmol/L Blood Gas Oxygen Saturation 97 % Arterial Blood pH 7.43 Arterial Blood Partial Pressure CO2 46 mmHg Arterial Blood Partial Pressure O2 167 mmHg Arterial Blood Oxygen Content 13.6 Vol % Arterial Blood Carboxyhemoglobin 1.3 % Arterial Blood Methemoglobin 1.4 % Blood Gas Hemoglobin 9.7 G/DL Oxygen Delivery Device NASAL CANNULA Blood Gas Liter Flow 5 L/M White Blood Count 5.6 TH/MM3 Red Blood Count 2.55 MIL/MM3 Hemoglobin 10.1 GM/DL Hematocrit 27.8 % Mean Corpuscular Volume 109.0 FL Mean Corpuscular Hemoglobin 39.5 PG Mean Corpuscular Hemoglobin Concent 36.2 % Red Cell Distribution Width 22.6 % Platelet Count 23 TH/MM3 Mean Platelet Volume 8.6 FL CBC Comment AUTO DIFF Activated Partial Thromboplast Time 42.2 SEC Blood Urea Nitrogen 56 MG/DL Creatinine 1.77 MG/DL Random Glucose 150 MG/DL Total Protein 5.6 GM/DL Albumin 2.6 GM/DL Calcium Level 7.5 MG/DL Alkaline Phosphatase 66 U/L Aspartate Amino Transf (AST/SGOT) 78 U/L Alanine Aminotransferase (ALT/SGPT) 18 U/L Total Bilirubin 0.9 MG/DL Sodium Level 144 MEQ/L Potassium Level 3.0 MEQ/L Chloride Level 106 MEQ/L Carbon Dioxide Level 29.3 MEQ/L Anion Gap 9 MEQ/L Estimat Glomerular Filtration Rate 28 ML/MIN Culture Results Microbiology Date/Time Source Procedure Growth Status 11/18/17 14:25 Stool Stool Stool Occult Blood (KIM) - Final HEMOCCULT POSITIVE Complete 11/18/17 14:25 Stool Stool Stool Occult Blood (KIM) Pending Ordered 11/18/17 14:25 Stool Stool Stool Occult Blood (KIM) Pending Ordered Imaging Studies Last 24 hours Impressions Brain MRI 11/20/17 1409 Signed Impressions: Service Date/Time: October 20:54 - CONCLUSION: 1. No acute intracranial abnormality. Right-sided mastoid air cell disease. No recent infarct, mass effect or shift. Roby Brito MD Administered Medications Medications (Trade) Dose Ordered Sig/Colton Route PRN Reason Start Time Stop Time Status Last Admin Dose Admin Sodium Chloride (NS Flush) 2 ml UNSCH PRN IV FLUSH FLUSH AFTER USING IV ACCESS 11/17/17 06:45 11/17/17 08:29 Sodium Chloride (NS Flush) 2 ml BID IV FLUSH 11/17/17 09:00 11/20/17 19:44 Albuterol/ Ipratropium (Duoneb Neb) 1 ampule Q4HR NEB PRN INH WHEEZING 11/17/17 06:45 11/19/17 12:31 Miscellaneous Information 1 Q361D XX 11/17/17 06:45 11/17/17 06:45 Chlorhexidine Gluconate (Chlorhexidine 2% Cloth) 3 pack Taper DAILY@04 TOP 11/18/17 04:00 11/14/18 03:59 11/21/17 03:54 Senna/Docusate Sodium (Rita-Colace) 1 tab BID PO 11/17/17 09:00 11/20/17 19:45 Sennosides (Senokot) 17.2 mg Q12H PRN PO Moderate constipation 11/17/17 06:45 11/17/17 09:11 Lactulose (Lactulose Liq) 30 ml DAILY PRN PO SEVERE CONSITIPATION 11/17/17 06:45 11/17/17 09:11 Albuterol Sulfate (Albuterol Neb) 2.5 mg Q4HR NEB PRN NEB SHORTNESS OF BREATH 11/17/17 07:45 11/21/17 01:45 Budesonide (Pulmicort Respule Neb) 0.25 mg DAILY NEB NEB 11/17/17 08:00 11/21/17 08:08 Cefepime HCl 2000 mg/Sodium Chloride 100 ml @ 200 mls/hr Q24H IV 11/18/17 09:00 11/20/17 08:37 Metronidazole 100 ml @ 100 mls/hr Q8H IV 11/17/17 20:00 11/21/17 03:54 Argatroban 250 mg/ Sodium Chloride 252.5 ml @ 1.92 mls/hr TITRATE PRN IV aPTT < 50 11/18/17 12:45 11/18/17 14:44 Famotidine (Pepcid Inj) 10 mg Q12HR IV PUSH 11/18/17 21:00 11/20/17 19:44 Sodium Chloride 5.5 meq/Sodium Acetate 29.5 meq/ Potassium Chloride 20 meq/ Magnesium Chloride 5 meq/ Calcium Chloride 4.5 meq/ Multivitamins 10 ml/Folic Acid 1 mg/Amino Acids/ Dextrose 1,042.1719 ml @ 42 mls/hr Q24H IV 11/19/17 20:00 11/20/17 19:44 Fat Emulsion Intravenous 250 ml @ 10 mls/hr Q24H IV 11/19/17 20:00 11/20/17 19:44 Diltiazem HCl (Cardizem) 60 mg Q6HR PO 11/20/17 12:00 11/21/17 06:08 Rifaximin (Xifaxan) 550 mg BID PO 11/20/17 21:00 11/20/17 19:45 Albuterol Sulfate (Albuterol Neb) 2.5 mg Q4HR NEB INH 11/21/17 04:00 11/21/17 08:07 Objective Remarks GENERAL: Lethargic but arousable. SKIN: Warm and dry. HEAD: Normocephalic. EYES: No scleral icterus. No injection or drainage. NECK: Supple, trachea midline. No JVD or lymphadenopathy. LYMPHATIC: No adenopathy. CARDIOVASCULAR: Regular rate and rhythm without murmurs. RESPIRATORY: Breath sounds equal bilaterally. No accessory muscle use. GASTROINTESTINAL: Abdomen soft, pain left lower abdomen EXTREMITIES: No cyanosis, or edema. MUSCULOSKELETAL: Adequate muscle tone. NEUROLOGICAL: Confused Assessment/Plan Problem List: (1) Idiopathic thrombocytopenia purpura ICD Codes: D69.3 - Immune thrombocytopenic purpura Status: Acute Plan: --platelets may be lower due to consumption and antibiotics. Platelet trended down to 23K this am but no bleeding noted. --had splenectomy in 2009. --was treated with Nplate in the past with good response. --per , patient's baseline is between 50-70K and she has not required treatment for ITP since spleen removal several years ago. --platelet count has been fluctuating between 40,000-70,000. --no indication to start treatment for the idiopathic thrombocytopenic purpura at this point. (2) Arterial occlusion ICD Codes: I70.90 - Unspecified atherosclerosis Plan: --started on Argatroban on 11/18, tolerated well, no evidence of bleeding despite low platelet. No evidence of recurrent clot. 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 --had embolectomy in September of this year. then started on Pradaxa, but later switched to Xarelto. --presented with abdominal pain and could have ischemic bowel (3) Abdominal pain ICD Codes: R10.9 - Unspecified abdominal pain Status: Acute Plan: --Await EGD/Colonoscopy when stable --presented with acute severe abdominal pain. --CT did not show any bowel obstruction. --Ultrasound also negative for occlusion or stenosis. 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 h/o Chronic anemia. Chronic back pain. Multiple compression fractures. Chronic obstructive pulmonary disease. Hypertension. Left popliteal arterial occlusion. Plan 1. Continue argatroban and monitor closely for sign of bleeding 2. Continue to monitor CBC, liver enzymes Discussed with pt's . Problem Qualifiers (1) Abdominal pain: Qualified Codes: R10.84 - Generalized abdominal pain Braden Luong MD Nov 21, 2017 08:27
--- NOTE | 2017-11-21 08:34 | HHI.CCPN ---
Subjective Remarks/Hospital Course This is a 67-year-old female that presented to [facility], by private transportation for evaluation of severe abdominal pain. Patient states of the past week she has had constipation so last evening took laxatives ( Senokot) x 3 days, and then today had large bowel movement multiple times with development of severe lower abdominal pain. Patient had subsequently noted some abdominal distention. Patient states her abdomen is exquisitely tender with any movement. Patient also complains of some epigastric pain. 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 No report of hematemesis or coffee-ground emesis. Patient states after bowel movements no report of melena or hematochezia. Patient rates her abdominal pain 10/10 in intensity, without relief of narcotics. The patient was transferred to [facility] , critical care medicine was consulted. Subjective: 11/18: Overnight the patient was known to be oliguric, the patient received approximately 5 L of normal saline , and 500 cc of 5% albumin during the night. NG tube output approximately 700 cc since admission. The patient was noted to be mildly confused this a.m. and progressively worsened. O2 saturation was 100% ,stat ABGs performed, metabolic acidosis with a bicarbonate level of 16. Patient received 2 A of sodium bicarbonate and bicarbonate infusion was initiated. Patient also was noted to be hypocalcemic this a.m. and received 2 g of calcium gluconate. The patient was started on Argatroban infusion after discussion with Dr. Howell, plan for endoscopy tomorrow . The patient was previously on Xarelto for DVT prophylaxis.Repeat labs performed early this afternoon revealed hemoglobin of 6.7, 1 unit of PRBC being transfused. She required restraints, for patient safety. Repeat labs pending this evening posttransfusion. 11/19: Afebrile. Last evening the patient became more confused metabolic acidosis, placed on sodium bicarbonate infusion, now corrected. Patient alert, following commands. Sodium bicarbonate infusion discontinued. Patient noted to be severely anemic with hemoglobin of 6.2 received 1 unit of PRBCs, last hemoglobin 9.4, stable. Continued serial monitoring of H&H labs pending this a.m.. Patient noted to have improvement in urine output overnight. EGD placed on hold. 11/20 No events overnight. Afebrile, on 3L oxygen. 11/21 Patient is on 2L oxygen. MRI brain last night showed no acute abnormalities. Afebrile. Lethargic Objective Vital Signs Date Time Temp Pulse Resp B/P (MAP) Pulse Ox O2 Delivery O2 Flow Rate FiO2 11/21/17 08:09 96 Nasal Cannula 2.00 11/21/17 06:00 145 11/21/17 04:00 99.0 27 146/89 (108) Intake and Output 11/21/17 11/21/17 11/22/17 08:00 16:00 00:00 Intake Total 300 ml Output Total 1725 ml Balance -1425 ml Result Diagram: 11/21/17 0600 11/21/17 0600 Other Results Laboratory Tests Test 11/20/17 09:38 11/20/17 09:40 11/20/17 14:21 11/20/17 17:27 Activated Partial Thromboplast Time 44.6 SEC 46.5 SEC Blood Gas Puncture Site LT RADIAL Blood Gas Patient Temperature 98.6 Blood Gas HCO3 25 mmol/L Blood Gas Base Excess 1.0 mmol/L Blood Gas Oxygen Saturation 95 % Arterial Blood pH 7.40 Arterial Blood Partial Pressure CO2 42 mmHg Arterial Blood Partial Pressure O2 104 mmHg Arterial Blood Oxygen Content 14.4 Vol % Arterial Blood Carboxyhemoglobin 1.3 % Arterial Blood Methemoglobin 1.3 % Blood Gas Hemoglobin 10.7 G/DL Oxygen Delivery Device NASAL CANNULA Blood Gas Liter Flow 3 L/M Potassium Level 3.4 MEQ/L Ammonia 46 MCMOL/L Total Creatine Kinase 386 U/L Creatine Kinase MB 6.1 NG/ML Creatine Kinase MB % 1.6 % Vitamin B12 Level GREATER THAN 2000 PG/ML Test 11/20/17 21:20 11/21/17 06:00 Blood Gas Puncture Site RT RADIAL Blood Gas Patient Temperature 98.6 Blood Gas HCO3 30 mmol/L Blood Gas Base Excess 5.2 mmol/L Blood Gas Oxygen Saturation 97 % Arterial Blood pH 7.43 Arterial Blood Partial Pressure CO2 46 mmHg Arterial Blood Partial Pressure O2 167 mmHg Arterial Blood Oxygen Content 13.6 Vol % Arterial Blood Carboxyhemoglobin 1.3 % Arterial Blood Methemoglobin 1.4 % Blood Gas Hemoglobin 9.7 G/DL Oxygen Delivery Device NASAL CANNULA Blood Gas Liter Flow 5 L/M White Blood Count 5.6 TH/MM3 Red Blood Count 2.55 MIL/MM3 Hemoglobin 10.1 GM/DL Hematocrit 27.8 % Mean Corpuscular Volume 109.0 FL Mean Corpuscular Hemoglobin 39.5 PG Mean Corpuscular Hemoglobin Concent 36.2 % Red Cell Distribution Width 22.6 % Platelet Count 23 TH/MM3 Mean Platelet Volume 8.6 FL CBC Comment AUTO DIFF Activated Partial Thromboplast Time 42.2 SEC Blood Urea Nitrogen 56 MG/DL Creatinine 1.77 MG/DL Random Glucose 150 MG/DL Total Protein 5.6 GM/DL Albumin 2.6 GM/DL Calcium Level 7.5 MG/DL Alkaline Phosphatase 66 U/L Aspartate Amino Transf (AST/SGOT) 78 U/L Alanine Aminotransferase (ALT/SGPT) 18 U/L Total Bilirubin 0.9 MG/DL Sodium Level 144 MEQ/L Potassium Level 3.0 MEQ/L Chloride Level 106 MEQ/L Carbon Dioxide Level 29.3 MEQ/L Anion Gap 9 MEQ/L Estimat Glomerular Filtration Rate 28 ML/MIN Imaging Last Impressions Chest X-Ray 11/20/17 0600 Signed Impressions: Service Date/Time: October 04:36 - CONCLUSION: Bibasilar infiltrates, left greater than right. Víctor Bates MD Chest CT 11/19/17 0000 Signed Impressions: Service Date/Time: Sunday, November 19, 2017 17:10 - CONCLUSION: Minimal consolidative changes as above Small pleural effusions. Luis A Castillo MD FACR Abdomen/Pelvis CT 11/19/17 0000 Signed Impressions: Service Date/Time: Sunday, November 19, 2017 17:10 - CONCLUSION: Trace ascites or subcapsular fluid around liver Prominent gallbladder Luis A Castillo MD FACR Abdomen X-Ray 11/17/17 0000 Signed Impressions: Service Date/Time: Friday, November 17, 2017 07:37 - CONCLUSION: No bowel obstruction, ileus or perforation. Swapnil Saldaña MD Abdomen Ultrasound 11/17/17 0000 Signed Impressions: Service Date/Time: Friday, November 17, 2017 08:01 - CONCLUSION: Negative for occlusion or significant stenosis. Luis A Castillo MD FACR Objective Remarks GENERAL: This is a pale thin female lethargic SKIN: Warm and dry. Pale HEAD: Atraumatic. Normocephalic. EYES: Pupils equal and round. No scleral icterus. No injection or drainage. ENT: No nasal bleeding or discharge. Mucous membranes pink and moist. NG tube to [id number]- bilious NECK: Trachea midline. No JVD. CARDIOVASCULAR: Tachycardic rate, regular rhythm. RESPIRATORY: No accessory muscle use. Clear to auscultation. Breath sounds equal bilaterally.Nasal Cannula 3 L/m GASTROINTESTINAL: Abdomen soft, non-tender, nondistended. No guarding. MUSCULOSKELETAL: Extremities without clubbing, cyanosis, or edema. No obvious deformities. NEUROLOGICAL:Lethargic. No gross focal/sensory deficits. Follows commands in all 4 extremities. A/P Problem List: (1) Chronic anemia ICD Code: D64.9 - Anemia, unspecified Status: Acute (2) Idiopathic thrombocytopenia purpura ICD Code: D69.3 - Immune thrombocytopenic purpura Status: Acute (3) COPD (chronic obstructive pulmonary disease) ICD Code: J44.9 - Chronic obstructive pulmonary disease, unspecified Status: Acute (4) NISHANT (acute kidney injury) ICD Code: N17.9 - Acute kidney failure, unspecified Status: Acute (5) Chronic back pain ICD Code: M54.9 - Dorsalgia, unspecified; G89.29 - Other chronic pain Status: Acute (6) Hypertension ICD Code: I10 - Essential (primary) hypertension Status: Acute (7) Acute and chronic respiratory failure with hypoxia ICD Code: J96.21 - Acute and chronic respiratory failure with hypoxia Status: Acute (8) Abdominal pain ICD Code: R10.9 - Unspecified abdominal pain Status: Acute (9) Metabolic acidemia ICD Code: E87.2 - Acidosis Status: Acute Assessment and Plan Assessment Plan Plan by systems: Neurologic: Chronic back pain 2/2 impression fractures Neurochecks per ICU protocol MRI brain last night no acute abnormalities Neuro is following- Dr. Hyman Dilaudid 0.5 mg every 4 hours when necessary for breakthrough pain scale 7-10 Tylenol 650 mg every 6 hours when necessary for pain or temperature greater than 100.5 Patient on home dose [place] for pain control will hold for now Respiratory: COPD Asthma Home O2 dependency Continue with oxygen keep sats >92% home O2 dependency Continue DuoNeb, Spiriva and budesonide- home medications Aspiration precautions Cardiovascular: Hypertension Sinus tachycardia On Cardizem 60mg Q6 for BP/HR control. Keep MAP>65mmHg Renal: NISHANT Monitor renal function, I/O's, electrolytes replacement as needed Renal function is improving with Cr: 1.77 from 2.1 FEN/GI: Elevated LFT's On PPN/Iipids, GI and surgery are following CT abd/pelvis: Trace ascites or subcapsular fluid around liver Prominent gallbladder US abdomen: Negative for occlusion or significant stenosis. NGT to LIWS 11/17 Rectal tube KUB yesterday showed no obstruction. Wean off PPN and start trickle feed if ok with GI. On Rifaximin, add Lactulose monitor ammonia level. Heme/ID: History of DVT 09/2017 Chronic ITP Hematology following-Dr. Luong.11/17, 11/18 Transfused 1u PRBC Platelet count normally 40-70,000 Patient had left popliteal embolectomy 09/2017, Dr. Mixon and was placed on Pradaxa, patient under the care of chief unit forester Dr. Reyna. 11/18 Patient takes Xarelto 20mg/d (on hold)on Argatroban infusion Doppler US LE negative for DVT Endocrine: Hyperglycemia of critical illness Glucose monitoring per ICU [id number] regimen -- SSI Prophylaxis: GI Prophylaxis Famotidine BID DVT Prophylaxis -- SCDs Patient's home med include Xarelto. on Argatroban Lines: Peripheral IVs 2. Level 2 Problem Qualifiers (1) Abdominal pain: Qualified Codes: R10.84 - Generalized abdominal pain Nevaeh Saldana MD Nov 21, 2017 08:34
[2017-11-21 08:58] LABS: BANDS 18 % (0-6); LYMPHOCYTES 12 % (9-44); MONOCYTES 8 % (0-8); NEUTROPHIL # MANUAL DIFF 4.5 TH/MM3 (1.8-7.7); POLYS (SEG NEUTROPHILS) 62 % (16-70)
[2017-11-21 08:59] LABS: KERATOCYTES OCC (NORMAL); TARGET CELLS 1+ (NORMAL); TOXIC GRANULATION 1+ (NORMAL)
[2017-11-21] MEDS: TIOTROPIUM BROMIDE 18 MCG INH INH SCH (09:00)
[2017-11-21] MEDS: DOCUSATE SODIUM 50 MG/SENNA 8.6 MG TAB PO SCH ×2 (09:00→21:00)
[2017-11-21] MEDS: CEFEPIME INJ 2,000 MG in SODIUM CHLORIDE 0.9% INJ 100 ML IV SCH (09:39)
[2017-11-21] MEDS: LACTULOSE SYRUP 20 GM/30 ML CUP PO SCH ×3 (09:39→16:51)
[2017-11-21] MEDS: RIFAXIMIN 550 MG TAB PO SCH ×2 (09:39→21:44)
[2017-11-21] MEDS: FAMOTIDINE 20 MG/2 ML VIAL IV PUSH SCH ×2 (09:40→21:43)
[2017-11-21] MEDS: SODIUM CHLORIDE 0.9% FLUSH 10 ML FLUSH IV FLUSH SCH ×2 (09:40→21:00)
--- NOTE | 2017-11-21 10:24 | HHI.GIFU ---
Subjective Remarks Pt with increasing confusion today Nonverbal at bedside Respirations irregular NGT to LIWS Rectal tube with 100 mL of loose brown stool (Lesa Piedra) Objective Vitals I&O Vital Signs Date Time Temp Pulse Resp B/P (MAP) Pulse Ox O2 Delivery O2 Flow Rate FiO2 11/21/17 08:09 96 Nasal Cannula 2.00 11/21/17 06:00 145 11/21/17 04:00 102 11/21/17 04:00 99.0 102 27 146/89 (108) 100 11/21/17 02:00 114 11/21/17 00:00 133 11/21/17 00:00 99.0 133 28 137/65 (89) 100 11/20/17 22:00 124 11/20/17 21:25 100 Nasal Cannula 5.00 11/20/17 20:00 104 11/20/17 20:00 99.5 104 51 133/61 (85) 99 11/20/17 18:00 139 11/20/17 16:00 123 11/20/17 16:00 97.4 123 24 156/90 (112) 96 11/20/17 15:01 124 33 151/112 (125) 97 11/20/17 14:00 105 11/20/17 14:00 105 33 151/74 (99) 98 11/20/17 13:00 130 25 170/120 (137) 100 11/20/17 12:15 18 11/20/17 12:00 140 11/20/17 12:00 97.6 140 18 159/90 (113) 100 11/20/17 11:00 137 27 131/70 (90) 98 I/O 11/20/17 11/20/17 11/20/17 11/21/17 11/21/17 11/21/17 07:00 15:00 23:00 07:00 15:00 23:00 Intake Total 100 ml 400 ml 1731.6719 ml 300 ml Output Total 1000 ml 1200 ml 1725 ml Balance -900 ml 400 ml 531.6719 ml -1425 ml Intake Oral 0 ml IV Total 100 ml 400 ml 1731.6719 ml 300 ml Output Urine Total 1000 ml 900 ml 1675 ml Stool Total 0 ml 50 ml 50 ml Gastric Drainage Total 0 ml 250 ml 0 ml Laboratory Laboratory Tests Test 11/20/17 14:21 11/20/17 17:27 11/20/17 21:20 11/21/17 06:00 Activated Partial Thromboplast Time 46.5 42.2 Potassium Level 3.4 3.0 Ammonia 46 Total Creatine Kinase 386 Creatine Kinase MB 6.1 Creatine Kinase MB % 1.6 Vitamin B12 Level GREATER THAN 2000 Blood Gas Puncture Site RT RADIAL Blood Gas Patient Temperature 98.6 Blood Gas HCO3 30 Blood Gas Base Excess 5.2 Blood Gas Oxygen Saturation 97 Arterial Blood pH 7.43 Arterial Blood Partial Pressure CO2 46 Arterial Blood Partial Pressure O2 167 Arterial Blood Oxygen Content 13.6 Arterial Blood Carboxyhemoglobin 1.3 Arterial Blood Methemoglobin 1.4 Blood Gas Hemoglobin 9.7 Oxygen Delivery Device NASAL CANNULA Blood Gas Liter Flow 5 White Blood Count 5.6 Red Blood Count 2.55 Hemoglobin 10.1 Hematocrit 27.8 Mean Corpuscular Volume 109.0 Mean Corpuscular Hemoglobin 39.5 Mean Corpuscular Hemoglobin Concent 36.2 Red Cell Distribution Width 22.6 Platelet Count 23 Mean Platelet Volume 8.6 CBC Comment AUTO DIFF Differential Total Cells Counted 100 Neutrophils % (Manual) 62 Band Neutrophils % 18 Lymphocytes % 12 Monocytes % 8 Neutrophils # (Manual) 4.5 Differential Comment FINAL DIFF MANUAL Toxic Granulation 1+ Platelet Estimate LOW Platelet Morphology Comment NORMAL Target Cells 1+ Keratocytes OCC Blood Urea Nitrogen 56 Creatinine 1.77 Random Glucose 150 Total Protein 5.6 Albumin 2.6 Calcium Level 7.5 Alkaline Phosphatase 66 Aspartate Amino Transf (AST/SGOT) 78 Alanine Aminotransferase (ALT/SGPT) 18 Total Bilirubin 0.9 Sodium Level 144 Chloride Level 106 Carbon Dioxide Level 29.3 Anion Gap 9 Estimat Glomerular Filtration Rate 28 Date/Time Source Procedure Growth Status 11/16/17 23:45 Blood Peripheral Aerobic Blood Culture - Preliminary NO GROWTH IN 4 DAYS Resulted 11/16/17 23:45 Blood Peripheral Anaerobic Blood Culture - Preliminary NO GROWTH IN 4 DAYS Resulted 11/18/17 14:25 Stool Stool Stool Occult Blood (KIM) - Final HEMOCCULT POSITIVE Complete Imaging Last Impressions Brain MRI 11/20/17 1409 Signed Impressions: Service Date/Time: October 20:54 - CONCLUSION: 1. No acute intracranial abnormality. Right-sided mastoid air cell disease. No recent infarct, mass effect or shift. Roby Brito MD Chest X-Ray 11/20/17 0600 Signed Impressions: Service Date/Time: October 04:36 - CONCLUSION: Bibasilar infiltrates, left greater than right. Víctor Bates MD Lower Extremity Ultrasound 11/20/17 0000 Signed Impressions: Service Date/Time: October 11:48 - CONCLUSION: 1. No evidence of DVT. 2. Small right Stovall's cyst. Keven Lake MD Head CT 11/20/17 0000 Signed Impressions: Service Date/Time: October 11:29 - CONCLUSION: 1. Focal decreased attenuation involving the right armin consistent with lacunar infarct or ischemic change. 2. No acute hemorrhage, midline shift or extra-axial fluid collections. 3. Small fluid level within the right sphenoid sinus. Swapnil Saldaña MD Abdomen X-Ray 11/20/17 0000 Signed Impressions: Service Date/Time: October 10:33 - CONCLUSION: No bowel obstruction or ileus. Swapnil Saldaña MD Chest CT 11/19/17 0000 Signed Impressions: Service Date/Time: Sunday, November 19, 2017 17:10 - CONCLUSION: Minimal consolidative changes as above Small pleural effusions. Luis A Castillo MD FACR Abdomen/Pelvis CT 11/19/17 0000 Signed Impressions: Service Date/Time: Sunday, November 19, 2017 17:10 - CONCLUSION: Trace ascites or subcapsular fluid around liver Prominent gallbladder Luis A Castillo MD FACR Abdomen Ultrasound 11/17/17 0000 Signed Impressions: Service Date/Time: Friday, November 17, 2017 08:01 - CONCLUSION: Negative for occlusion or significant stenosis. Luis A Castillo MD FACR Physical Exam HEENT: Normocephalic; atraumatic CHEST: Irregular respirations, accessory muscle use CARDIAC: Sinus tachycardia ABDOMEN: Soft, mildly distended, bowel sounds hypoactive. NGT to LIWS liquid brown stool in collection bag SKIN: Normal; no rash; no jaundice. DELIVERER FOOD: Awake, nonverbal (Lesa Piedra) Assessment and Plan Plan ASSESSMENT - Abdominal pain and distention- KUB (11/17) --> No signs of obstruction, ileus or perforation. US abd SMA/Celiac --> Negative for occlusion or significant stenosis. - Anemia- macrocytic- H/H dropped to 6.7/20.2 yesterday- received one unit PRBCs- currently 05/26.9. No signs of GIB via NGT or rectal output. 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 Going down for CT abdomen/pelvis now. (11/21) Pt increasingly confused, nonverbal during exam. MRI brain done to evaluate change in mental status which showed no acute findings. Ammonia-46 possible cause of encephalopathy. Pt now on Xifaxan and Lactulose. PLAN - Xifaxan - Lactulose - Monitor ammonia - NGT to LIWS - Rectal tube to collection bag - EGD/colonoscopy when stable - Monitor H/H - Transfuse per CCM - Notify GI of active bleeding - TPN - Pepcid - Further recommendations based on clinical course Pt has been seen and examined by myself and Dr. Howell and this note is written on her behalf (Lesa Piedra) Physician Comments seen, examined agree with above ok to start tf at 20 cc/hrs (Ina Howell MD) Lesa Piedra Nov 21, 2017 10:24 Ina Howell MD Nov 21, 2017 21:04
[2017-11-21] MEDS: ACETAMINOPHEN 325 MG TAB PO PRN (11:45)
[2017-11-21] MEDS ORDERED: POTASSIUM CHLOR 40 MEQ PREMIX 100 ML IV PRN ×2 (13:30)
[2017-11-21] MEDS ORDERED: MAGNESIUM OXIDE 400 MG TAB PO PRN (13:30)
[2017-11-21] MEDS ORDERED: POTASSIUM PHOSPHATE MONOBASIC 500 MG TAB PO/TUBE PRN (13:30)
[2017-11-21] MEDS ORDERED: MAGNESIUM SULFATE INJ 4 GM in SODIUM CHLORIDE 0.9% INJ 92 ML IV PRN (13:30)
[2017-11-21] MEDS: POTASSIUM CHLORIDE 25 MEQ EFFERVESCENT TAB PO PRN (13:47)
[2017-11-21] MEDS: POTASSIUM CHLOR 20 MEQ PREMIX 100 ML IV PRN ×2 (13:47→17:07)
[2017-11-21] MEDS ORDERED: MORPHINE SULFATE 2 MG/ML SYRINGE IV PUSH ONE (15:15)
--- NOTE | 2017-11-21 16:19 | HHI.PR ---
cc: Leo Dunham MD Subjective Subjective Notes Lethargic at bedside Objective Vitals/I&O Vital Signs Date Time Temp Pulse Resp B/P (MAP) Pulse Ox O2 Delivery O2 Flow Rate FiO2 11/21/17 14:00 113 11/21/17 12:45 35 11/21/17 12:00 97.4 142/92 (109) 98 11/21/17 08:09 Nasal Cannula 2.00 Labs Laboratory Tests Test 11/20/17 17:27 11/20/17 21:20 11/21/17 06:00 11/21/17 12:22 Potassium Level 3.4 3.0 2.9 Ammonia 46 Total Creatine Kinase 386 Creatine Kinase MB 6.1 Creatine Kinase MB % 1.6 Vitamin B12 Level GREATER THAN 2000 Blood Gas Puncture Site RT RADIAL Blood Gas Patient Temperature 98.6 Blood Gas HCO3 30 Blood Gas Base Excess 5.2 Blood Gas Oxygen Saturation 97 Arterial Blood pH 7.43 Arterial Blood Partial Pressure CO2 46 Arterial Blood Partial Pressure O2 167 Arterial Blood Oxygen Content 13.6 Arterial Blood Carboxyhemoglobin 1.3 Arterial Blood Methemoglobin 1.4 Blood Gas Hemoglobin 9.7 Oxygen Delivery Device NASAL CANNULA Blood Gas Liter Flow 5 White Blood Count 5.6 Red Blood Count 2.55 Hemoglobin 10.1 Hematocrit 27.8 Mean Corpuscular Volume 109.0 Mean Corpuscular Hemoglobin 39.5 Mean Corpuscular Hemoglobin Concent 36.2 Red Cell Distribution Width 22.6 Platelet Count 23 Mean Platelet Volume 8.6 CBC Comment AUTO DIFF Differential Total Cells Counted 100 Neutrophils % (Manual) 62 Band Neutrophils % 18 Lymphocytes % 12 Monocytes % 8 Neutrophils # (Manual) 4.5 Differential Comment FINAL DIFF MANUAL Toxic Granulation 1+ Platelet Estimate LOW Platelet Morphology Comment NORMAL Target Cells 1+ Keratocytes OCC Activated Partial Thromboplast Time 42.2 Blood Urea Nitrogen 56 Creatinine 1.77 Random Glucose 150 Total Protein 5.6 Albumin 2.6 Calcium Level 7.5 Alkaline Phosphatase 66 Aspartate Amino Transf (AST/SGOT) 78 Alanine Aminotransferase (ALT/SGPT) 18 Total Bilirubin 0.9 Sodium Level 144 Chloride Level 106 Carbon Dioxide Level 29.3 Anion Gap 9 Estimat Glomerular Filtration Rate 28 Date/Time Source Procedure Growth Status 11/16/17 23:45 Blood Peripheral Aerobic Blood Culture - Final NO GROWTH IN 5 DAYS Complete 11/16/17 23:45 Blood Peripheral Anaerobic Blood Culture - Final NO GROWTH IN 5 DAYS Complete 11/18/17 14:25 Stool Stool Stool Occult Blood (KIM) - Final HEMOCCULT POSITIVE Complete Radiology Last 48 hours Impressions Abdomen/Pelvis CT 11/17/17 0000 Signed Impressions: Service Date/Time: Friday, November 17, 2017 01:08 - CONCLUSION: 1. Distended stomach. 2. Fluid distended colon without dilated loops of small bowel. Víctor Bates MD Abdomen X-Ray 11/17/17 0000 Signed Impressions: Service Date/Time: Friday, November 17, 2017 07:37 - CONCLUSION: No bowel obstruction, ileus or perforation. Swapnil Saldaña MD Abdomen Ultrasound 11/17/17 0000 Signed Impressions: Service Date/Time: Friday, November 17, 2017 08:01 - CONCLUSION: Negative for occlusion or significant stenosis. Luis A Castillo MD FACR Chest X-Ray 11/16/17 2326 Signed Impressions: Service Date/Time: Thursday, November 16, 2017 23:51 - CONCLUSION: Hyperaerated lungs. No infiltrates seen. Víctor Bates MD Cardiovascular: Regular Lungs: Clear Abdomen: Other (tenderness throughout ) Extremities: No edema Narrative Exam NGT to LIWS Rectal tube in place A/P Assessment and Plan 67 year old female with abdominal pain; lactic acidosis -Acidosis corrected -Repeat CT reviewed---shows prominent gallbladder -S/p MRI; Neurology following -NGT to LIWS -PPN -Maintain rectal tube -Hematology following --- on Argatroban; plt 23K -No acute surgical intervention needed at this time -General Surgery will follow peripherally over the weekend; please call with questions Attending Statement patient seen at bedside abdominal pain but mild no acute surgical intervention will follow intermittently Attestation The exam, history, and the medical decision-making described in the above note were completed with the assistance of the mid-level provider. I reviewed and agree with the findings presented. I attest that I had a [id number] encounter with the patient on the same day, and personally performed and documented my assessment and findings in the medical record. Nicky Neil/[employer] CANAL DRIVER Nov 21, 2017 16:19 Leo Dunham MD Nov 27, 2017 15:50
[2017-11-21] MEDS ORDERED: cloNIDine HCL 0.1 MG TAB PO PRN (16:45)
[2017-11-21] MEDS: FAT EMULSION 20% INJ 250 ML (@10 mls/hr) IV SCH (21:42)
[2017-11-21] MEDS: CLINIMIX 4.25/5 (Cust.Renal Periph) 1000 mL- </= 42 mls/hr IV SCH ×8 (21:43)
[2017-11-21 21:45] LABS: PHOSPHORUS 0.6 MG/DL (2.5-4.9)
[2017-11-21] MEDS: SODIUM PHOSPHATE INJ 30 MMOL in SODIUM CHLOR 0.9% 250 ML INJ 240 ML IV PRN (22:53)
[2017-11-22] VITALS (20 sets, daily range): BP systolic 127–154; BP diastolic 65–93; PULSE 81–114; RESP 17–47; TEMP 97.9–100.3; O2SAT 96–98
[2017-11-22] MEDS: METOPROLOL TARTRATE 5 MG/5 ML VIAL IV PUSH PRN (00:55)
[2017-11-22] MEDS: hydrALAZINE HCL 20 MG/ML VIAL IV PUSH PRN (02:07)
[2017-11-22] MEDS: HYDROmorphone HCL PF 2 MG/ML VIAL IV PRN ×6 (02:45→22:01)
[2017-11-22] MEDS: metroNIDAZOLE 500 MG INJ 100 ML IV SCH ×3 (03:21→21:59)
[2017-11-22 04:08] LABS: HEMATOCRIT 25.2 % (35.0-46.0); HEMOGLOBIN 8.9 GM/DL (11.6-15.3); MEAN CORPUSCULAR HEMOGLOBIN 39.3 PG (27.0-34.0); MEAN CORPUSCULAR HGB CONC 35.1 % (32.0-36.0); MEAN PLATELET VOLUME 9.2 FL (7.0-11.0); PLATELET COUNT 30 TH/MM3 (150-450); RED BLOOD COUNT 2.25 MIL/MM3 (4.00-5.30); RED CELL DISTRIBUTION WIDTH 22.6 % (11.6-17.2); WHITE BLOOD COUNT 7.4 TH/MM3 (4.0-11.0)
[2017-11-22] MEDS: RESP: ALBUTEROL 2.5 MG/3 ML NEB (SCH) INH ×6 (04:14→20:26)
[2017-11-22] MEDS: DILTIAZEM HCL 60 MG TAB PO SCH ×4 (04:20→23:24)
[2017-11-22] MEDS: ACETAMINOPHEN 325 MG TAB PO PRN (04:21)
[2017-11-22 04:30] LABS: ALBUMIN 2.8 GM/DL (3.4-5.0); BICARBONATE 30.8 MEQ/L (21.0-32.0); CALCIUM 7.4 MG/DL (8.5-10.1); CALCIUM-PROTEIN CORRECTED 8.1 MG/DL (8.5-10.1); CREATININE 1.47 MG/DL (0.50-1.00); MAGNESIUM 1.3 MG/DL (1.5-2.5); PHOSPHORUS 2.9 MG/DL (2.5-4.9); RANDOM VANCOMYCIN 12.2 COMMENT; TOTAL BILIRUBIN ADULT 0.9 MG/DL (0.2-1.0); TOTAL PROTEIN 5.8 GM/DL (6.4-8.2)
[2017-11-22] MEDS: POTASSIUM CHLOR 20 MEQ PREMIX 100 ML IV PRN ×2 (04:53→10:08)
[2017-11-22] MEDS: MAGNESIUM SULFATE INJ 2 GM in SODIUM CHLORIDE 0.9% INJ 96 ML IV PRN (05:09)
[2017-11-22 05:32] LABS: BANDS 11 % (0-6); CORRECTED NUCLEATED RBC 1 /100 WBC (0-0); LYMPHOCYTES 17 % (9-44); MONOCYTES 8 % (0-8); NEUTROPHIL # MANUAL DIFF 5.6 TH/MM3 (1.8-7.7); NUCLEATED RED BLOOD CELL 1 (0-0); POLYS (SEG NEUTROPHILS) 64 % (16-70)
--- NOTE | 2017-11-22 07:49 | HHI.CCPN ---
Subjective Remarks/Hospital Course This is a 67-year-old female that presented to [facility], by private transportation for evaluation of severe abdominal pain. Patient states of the past week she has had constipation so last evening took laxatives ( Senokot) x 3 days, and then today had large bowel movement multiple times with development of severe lower abdominal pain. Patient had subsequently noted some abdominal distention. Patient states her abdomen is exquisitely tender with any movement. Patient also complains of some epigastric pain. 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 No report of hematemesis or coffee-ground emesis. Patient states after bowel movements no report of melena or hematochezia. Patient rates her abdominal pain 10/10 in intensity, without relief of narcotics. The patient was transferred to [facility] , critical care medicine was consulted. Subjective: 11/18: Overnight the patient was known to be oliguric, the patient received approximately 5 L of normal saline , and 500 cc of 5% albumin during the night. NG tube output approximately 700 cc since admission. The patient was noted to be mildly confused this a.m. and progressively worsened. O2 saturation was 100% ,stat ABGs performed, metabolic acidosis with a bicarbonate level of 16. Patient received 2 A of sodium bicarbonate and bicarbonate infusion was initiated. Patient also was noted to be hypocalcemic this a.m. and received 2 g of calcium gluconate. The patient was started on Argatroban infusion after discussion with Dr. Howell, plan for endoscopy tomorrow . The patient was previously on Xarelto for DVT prophylaxis.Repeat labs performed early this afternoon revealed hemoglobin of 6.7, 1 unit of PRBC being transfused. She required restraints, for patient safety. Repeat labs pending this evening posttransfusion. 11/19: Afebrile. Last evening the patient became more confused metabolic acidosis, placed on sodium bicarbonate infusion, now corrected. Patient alert, following commands. Sodium bicarbonate infusion discontinued. Patient noted to be severely anemic with hemoglobin of 6.2 received 1 unit of PRBCs, last hemoglobin 9.4, stable. Continued serial monitoring of H&H labs pending this a.m.. Patient noted to have improvement in urine output overnight. EGD placed on hold. 11/20 No events overnight. Afebrile, on 3L oxygen. 11/21 Patient is on 2L oxygen. MRI brain last night showed no acute abnormalities. Afebrile. Lethargic 11/22 Patient is on 3L oxygen. Renal function is improving with Cr: 1.47 from 1.77. On Argatroban drip. Objective Vital Signs Date Time Temp Pulse Resp B/P (MAP) Pulse Ox O2 Delivery O2 Flow Rate FiO2 11/22/17 06:00 96 11/22/17 04:00 98.2 41 147/67 (93) 96 11/21/17 19:11 Nasal Cannula 3.00 Intake and Output 11/22/17 11/22/17 11/23/17 08:00 16:00 00:00 Intake Total 350 ml Output Total 1430 ml Balance -1080 ml Result Diagram: 11/22/17 0335 11/22/17 0335 Other Results Laboratory Tests Test 11/21/17 12:22 11/21/17 20:05 11/22/17 03:35 Potassium Level 2.9 MEQ/L 4.0 MEQ/L 3.3 MEQ/L Phosphorus Level 0.6 MG/DL 2.9 MG/DL White Blood Count 7.4 TH/MM3 Red Blood Count 2.25 MIL/MM3 Hemoglobin 8.9 GM/DL Hematocrit 25.2 % Mean Corpuscular Volume 112.0 FL Mean Corpuscular Hemoglobin 39.3 PG Mean Corpuscular Hemoglobin Concent 35.1 % Red Cell Distribution Width 22.6 % Platelet Count 30 TH/MM3 Mean Platelet Volume 9.2 FL CBC Comment AUTO DIFF Differential Total Cells Counted 100 Neutrophils % (Manual) 64 % Band Neutrophils % 11 % Lymphocytes % 17 % Monocytes % 8 % Neutrophils # (Manual) 5.6 TH/MM3 Nucleated Red Blood Cells 1 /100 WBC Differential Comment FINAL DIFF MANUAL Atypical Lymphocytes % Platelet Estimate LOW Platelet Morphology Comment NORMAL Activated Partial Thromboplast Time 25.8 SEC Blood Urea Nitrogen 56 MG/DL Creatinine 1.47 MG/DL Random Glucose 135 MG/DL Total Protein 5.8 GM/DL Albumin 2.8 GM/DL Calcium Level 7.4 MG/DL Magnesium Level 1.3 MG/DL Alkaline Phosphatase 67 U/L Aspartate Amino Transf (AST/SGOT) 79 U/L Alanine Aminotransferase (ALT/SGPT) 16 U/L Total Bilirubin 0.9 MG/DL Sodium Level 151 MEQ/L Chloride Level 111 MEQ/L Carbon Dioxide Level 30.8 MEQ/L Anion Gap 9 MEQ/L Estimat Glomerular Filtration Rate 35 ML/MIN Protein Corrected Calcium 8.1 MG/DL Ammonia 29 MCMOL/L Random Vancomycin Level 12.2 COMMENT Imaging Last Impressions Brain MRI 11/20/17 1409 Signed Impressions: Service Date/Time: October 20:54 - CONCLUSION: 1. No acute intracranial abnormality. Right-sided mastoid air cell disease. No recent infarct, mass effect or shift. Roby Brito MD Chest X-Ray 11/20/17 0600 Signed Impressions: Service Date/Time: October 04:36 - CONCLUSION: Bibasilar infiltrates, left greater than right. Víctor Bates MD Lower Extremity Ultrasound 11/20/17 0000 Signed Impressions: Service Date/Time: October 11:48 - CONCLUSION: 1. No evidence of DVT. 2. Small right Stovall's cyst. Keven Lake MD Head CT 11/20/17 0000 Signed Impressions: Service Date/Time: October 11:29 - CONCLUSION: 1. Focal decreased attenuation involving the right armin consistent with lacunar infarct or ischemic change. 2. No acute hemorrhage, midline shift or extra-axial fluid collections. 3. Small fluid level within the right sphenoid sinus. Swapnil Saldaña MD Abdomen X-Ray 11/20/17 0000 Signed Impressions: Service Date/Time: October 10:33 - CONCLUSION: No bowel obstruction or ileus. Swapnil Saldaña MD Chest CT 11/19/17 0000 Signed Impressions: Service Date/Time: Sunday, November 19, 2017 17:10 - CONCLUSION: Minimal consolidative changes as above Small pleural effusions. Luis A Castillo MD FACR Abdomen/Pelvis CT 11/19/17 0000 Signed Impressions: Service Date/Time: Sunday, November 19, 2017 17:10 - CONCLUSION: Trace ascites or subcapsular fluid around liver Prominent gallbladder Luis A Castillo MD FACR Abdomen Ultrasound 11/17/17 0000 Signed Impressions: Service Date/Time: Friday, November 17, 2017 08:01 - CONCLUSION: Negative for occlusion or significant stenosis. Luis A Castillo MD FACR Objective Remarks GENERAL: This is a pale thin female lethargic SKIN: Warm and dry. Pale HEAD: Atraumatic. Normocephalic. EYES: Pupils equal and round. No scleral icterus. No injection or drainage. ENT: No nasal bleeding or discharge. Mucous membranes pink and moist. NG tube to LIWS-300cc- bilious NECK: Trachea midline. No JVD. CARDIOVASCULAR: Tachycardic rate, regular rhythm. RESPIRATORY: No accessory muscle use. Clear to auscultation. Breath sounds equal bilaterally.Nasal Cannula 3 L/m GASTROINTESTINAL: Abdomen soft, non-tender, nondistended. No guarding. MUSCULOSKELETAL: Extremities without clubbing, cyanosis, or edema. No obvious deformities. NEUROLOGICAL:Lethargic. No gross focal/sensory deficits. Follows commands in all 4 extremities. A/P Problem List: (1) Chronic anemia ICD Code: D64.9 - Anemia, unspecified Status: Acute (2) Idiopathic thrombocytopenia purpura ICD Code: D69.3 - Immune thrombocytopenic purpura Status: Acute (3) COPD (chronic obstructive pulmonary disease) ICD Code: J44.9 - Chronic obstructive pulmonary disease, unspecified Status: Acute (4) NISHANT (acute kidney injury) ICD Code: N17.9 - Acute kidney failure, unspecified Status: Acute (5) Chronic back pain ICD Code: M54.9 - Dorsalgia, unspecified; G89.29 - Other chronic pain Status: Acute (6) Hypertension ICD Code: I10 - Essential (primary) hypertension Status: Acute (7) Acute and chronic respiratory failure with hypoxia ICD Code: J96.21 - Acute and chronic respiratory failure with hypoxia Status: Acute (8) Abdominal pain ICD Code: R10.9 - Unspecified abdominal pain Status: Acute (9) Metabolic acidemia ICD Code: E87.2 - Acidosis Status: Acute Assessment and Plan Assessment Plan Plan by systems: Neurologic: Chronic back pain 2/2 impression fractures Neurochecks per ICU protocol MRI brain 11/21 no acute abnormalities Neuro is following- Dr. Hyman Dilaudid 0.5 mg every 4 hours when necessary for breakthrough pain scale 7-10 Tylenol 650 mg every 6 hours when necessary for pain or temperature greater than 100.5 Patient on home dose [place] for pain control will hold for now Respiratory: COPD Asthma Home O2 dependency Continue with oxygen keep sats >92% home O2 dependency Continue DuoNeb, Spiriva and budesonide- home medications Aspiration precautions Cardiovascular: Hypertension Sinus tachycardia On Cardizem 60mg Q6 , add Lopressor 50mg Q12. Keep MAP>65mmHg Renal: NISHANT Monitor renal function, I/O's, electrolytes replacement as needed. Will need K, Mag replacement Renal function is improving with Cr: 1.47 from 1.77 FEN/GI: Elevated LFT's On PPN/Iipids, GI and surgery are following CT abd/pelvis: Trace ascites or subcapsular fluid around liver Prominent gallbladder US abdomen: Negative for occlusion or significant stenosis. NGT to LIWS, add Free water 250ml Q6, D5W@50ml/hr KUB 11/21 showed no obstruction. Wean off PPN , tube feeds started by GI ( Jevity 1.5 with goal rate 50ml/hr) On Rifaximin, Lactulose monitor ammonia level ( 29 today) ID: Continue abx ( Cefepime, Flagyl) monitor for signs of infections ( Fever, WBC) BC 11/16:NGTD Heme History of DVT 09/2017 Chronic ITP Hematology following-Dr. Luong.11/17, 11/18 Transfused 1u PRBC Platelet count normally 40-70,000 Patient had left popliteal embolectomy 09/2017, Dr. Mixon and was placed on Pradaxa, patient under the care of latex foam worker Dr. Reyna. 11/18 Patient takes Xarelto 20mg/d (on hold)on Argatroban infusion Doppler US LE negative for DVT Endocrine: Hyperglycemia of critical illness Glucose monitoring per ICU [id number] regimen -- SSI Prophylaxis: GI Prophylaxis Famotidine BID DVT Prophylaxis -- SCDs Patient's home med include Xarelto. on Argatroban Lines: Peripheral IVs 2. Level 2 Problem Qualifiers (1) Abdominal pain: Qualified Codes: R10.84 - Generalized abdominal pain Nevaeh Saldana MD Nov 22, 2017 07:49
[2017-11-22] MEDS: RESP: BUDESONIDE 0.25 MG/2 ML NEB NEB SCH (08:24)
[2017-11-22] MEDS ORDERED: CALCIUM GLUCONATE INJ 1 GM in SODIUM CHLORIDE 0.9% INJ 100 ML IV ONE (09:00)
[2017-11-22] MEDS: FREE WATER G-TUBE SCH ×3 (09:00→21:00)
[2017-11-22] MEDS: DOCUSATE SODIUM 50 MG/SENNA 8.6 MG TAB PO SCH ×2 (09:00→22:00)
[2017-11-22] MEDS: TIOTROPIUM BROMIDE 18 MCG INH INH SCH (09:00)
[2017-11-22] MEDS: DEXTROSE 5% IN WATE 1000ML INJ 1,000 ML IV SCH (10:13)
[2017-11-22] MEDS: SODIUM CHLORIDE 0.9% FLUSH 10 ML FLUSH IV FLUSH SCH ×2 (10:15→22:00)
[2017-11-22] MEDS: CEFEPIME INJ 2,000 MG in SODIUM CHLORIDE 0.9% INJ 100 ML IV SCH (10:17)
[2017-11-22] MEDS: FAMOTIDINE 20 MG/2 ML VIAL IV PUSH SCH ×2 (10:19→22:00)
[2017-11-22] MEDS: RIFAXIMIN 550 MG TAB PO SCH ×2 (10:20→22:00)
[2017-11-22] MEDS: LACTULOSE SYRUP 20 GM/30 ML CUP PO SCH ×3 (10:20→18:02)
[2017-11-22] MEDS: METOPROLOL TARTRATE 50 MG TAB PO SCH ×2 (10:20→22:00)
[2017-11-22] MEDS ORDERED: VANCOMYCIN INJ 1,250 MG in SODIUM CHLOR 0.9% 250 ML INJ 250 ML IV ONE (15:00)
[2017-11-22] MEDS: ARGATROBAN INJ 250 MG in SODIUM CHLOR 0.9% 250 ML INJ 250 ML IV PRN (15:20)
--- NOTE | 2017-11-22 17:48 | PD.ONC.PN ---
Subjective Subjective Remarks T-max 100.3 overnight Patient remains lethargic/comatose Inappropriate movements Per RN, she has gotten approximately 600 mL of gastric contents from low intermittent wall suction that appears to be dark in nature suspicious for GI bleed Rectal tube with minimal output No other obvious bleeding Objective Data Date Time Temp Pulse Resp B/P (MAP) Pulse Ox O2 Delivery O2 Flow Rate FiO2 11/22/17 17:00 92 11/22/17 16:00 90 11/22/17 16:00 99.0 90 31 142/69 (93) 96 11/22/17 15:00 86 11/22/17 14:00 101 11/22/17 13:00 87 11/22/17 12:00 81 11/22/17 12:00 100.0 81 17 133/65 (87) 97 11/22/17 11:00 88 11/22/17 10:00 97 11/22/17 09:00 94 11/22/17 08:24 98 Nasal Cannula 4.00 11/22/17 08:00 100.3 94 27 136/81 (99) 97 11/22/17 08:00 94 11/22/17 07:00 96 11/22/17 06:00 96 11/22/17 04:00 98.2 100 41 147/67 (93) 96 11/22/17 04:00 100 11/22/17 02:00 102 11/22/17 00:00 113 11/22/17 00:00 97.9 114 47 154/93 (113) 96 11/21/17 22:00 114 11/21/17 20:00 116 11/21/17 20:00 98.9 116 44 156/107 (123) 100 11/21/17 19:11 94 Nasal Cannula 3.00 11/21/17 18:00 121 11/22/17 11/22/17 11/22/17 07:00 15:00 23:00 Intake Total 350 ml Output Total 1430 ml Balance -1080 ml Result Diagram: 11/22/17 0335 11/22/17 0335 Laboratory Results Laboratory Tests Test 11/21/17 20:05 11/22/17 03:35 11/22/17 11:30 11/22/17 14:24 Potassium Level 4.0 MEQ/L 3.3 MEQ/L Phosphorus Level 0.6 MG/DL 2.9 MG/DL 2.0 MG/DL White Blood Count 7.4 TH/MM3 Red Blood Count 2.25 MIL/MM3 Hemoglobin 8.9 GM/DL Hematocrit 25.2 % Mean Corpuscular Volume 112.0 FL Mean Corpuscular Hemoglobin 39.3 PG Mean Corpuscular Hemoglobin Concent 35.1 % Red Cell Distribution Width 22.6 % Platelet Count 30 TH/MM3 Mean Platelet Volume 9.2 FL CBC Comment AUTO DIFF Differential Total Cells Counted 100 Neutrophils % (Manual) 64 % Band Neutrophils % 11 % Lymphocytes % 17 % Monocytes % 8 % Neutrophils # (Manual) 5.6 TH/MM3 Nucleated Red Blood Cells 1 /100 WBC Differential Comment FINAL DIFF MANUAL Atypical Lymphocytes % Platelet Estimate LOW Platelet Morphology Comment NORMAL Activated Partial Thromboplast Time 25.8 SEC 40.8 SEC 44.8 SEC Blood Urea Nitrogen 56 MG/DL Creatinine 1.47 MG/DL Random Glucose 135 MG/DL Total Protein 5.8 GM/DL Albumin 2.8 GM/DL Calcium Level 7.4 MG/DL Magnesium Level 1.3 MG/DL Alkaline Phosphatase 67 U/L Aspartate Amino Transf (AST/SGOT) 79 U/L Alanine Aminotransferase (ALT/SGPT) 16 U/L Total Bilirubin 0.9 MG/DL Sodium Level 151 MEQ/L Chloride Level 111 MEQ/L Carbon Dioxide Level 30.8 MEQ/L Anion Gap 9 MEQ/L Estimat Glomerular Filtration Rate 35 ML/MIN Protein Corrected Calcium 8.1 MG/DL Ammonia 29 MCMOL/L Random Vancomycin Level 12.2 COMMENT Administered Medications Medications (Trade) Dose Ordered Sig/Colton Route PRN Reason Start Time Stop Time Status Last Admin Dose Admin Sodium Chloride (NS Flush) 2 ml UNSCH PRN IV FLUSH FLUSH AFTER USING IV ACCESS 11/17/17 06:45 11/17/17 08:29 Sodium Chloride (NS Flush) 2 ml BID IV FLUSH 11/17/17 09:00 11/22/17 10:15 Acetaminophen (Tylenol) 650 mg Q6H PRN PO PAIN 1-10 AND/OR FEVER >101F 11/17/17 06:45 11/22/17 04:21 Albuterol/ Ipratropium (Duoneb Neb) 1 ampule Q4HR NEB PRN INH WHEEZING 11/17/17 06:45 11/19/17 12:31 Miscellaneous Information 1 Q361D XX 11/17/17 06:45 11/17/17 06:45 Chlorhexidine Gluconate (Chlorhexidine 2% Cloth) 3 pack Taper DAILY@04 TOP 11/18/17 04:00 11/14/18 03:59 11/21/17 22:54 Senna/Docusate Sodium (Rita-Colace) 1 tab BID PO 11/17/17 09:00 11/21/17 09:00 Sennosides (Senokot) 17.2 mg Q12H PRN PO Moderate constipation 11/17/17 06:45 11/17/17 09:11 Lactulose (Lactulose Liq) 30 ml DAILY PRN PO SEVERE CONSITIPATION 11/17/17 06:45 11/17/17 09:11 Albuterol Sulfate (Albuterol Neb) 2.5 mg Q4HR NEB PRN NEB SHORTNESS OF BREATH 11/17/17 07:45 11/21/17 01:45 Budesonide (Pulmicort Respule Neb) 0.25 mg DAILY NEB NEB 11/17/17 08:00 11/22/17 08:24 Cefepime HCl 2000 mg/Sodium Chloride 100 ml @ 200 mls/hr Q24H IV 11/18/17 09:00 11/22/17 10:17 Metronidazole 100 ml @ 100 mls/hr Q8H IV 11/17/17 20:00 11/22/17 14:14 Argatroban 250 mg/ Sodium Chloride 252.5 ml @ 1.92 mls/hr TITRATE PRN IV aPTT < 50 11/18/17 12:45 11/22/17 15:20 Famotidine (Pepcid Inj) 10 mg Q12HR IV PUSH 11/18/17 21:00 11/22/17 10:19 Sodium Chloride 5.5 meq/Sodium Acetate 29.5 meq/ Potassium Chloride 20 meq/ Magnesium Chloride 5 meq/ Calcium Chloride 4.5 meq/ Multivitamins 10 ml/Folic Acid 1 mg/Amino Acids/ Dextrose 1,042.1719 ml @ 42 mls/hr Q24H IV 11/19/17 20:00 11/21/17 21:43 Fat Emulsion Intravenous 250 ml @ 10 mls/hr Q24H IV 11/19/17 20:00 11/21/17 21:42 Diltiazem HCl (Cardizem) 60 mg Q6HR PO 11/20/17 12:00 11/22/17 14:14 Rifaximin (Xifaxan) 550 mg BID PO 11/20/17 21:00 11/22/17 10:20 Albuterol Sulfate (Albuterol Neb) 2.5 mg Q4HR NEB INH 11/21/17 04:00 11/22/17 16:03 Lactulose (Lactulose Liq) 15 ml TID PO 11/21/17 09:00 11/22/17 14:08 Potassium Chloride 100 ml @ 50 mls/hr Q2H PRN IV For Potassium 2.8 - 3.2 mEq/L 11/21/17 13:30 11/21/17 17:07 Potassium Bicarb/ Potassium Chloride (K-Lyte Cl Eff) 50 meq UNSCH PRN PO For Potassium 3.3 - 3.5 mEq/L 11/21/17 13:30 11/21/17 13:47 Potassium Chloride 100 ml @ 50 mls/hr Q2H PRN IV For Potassium 3.3 - 3.5 mEq/L 11/21/17 13:30 11/22/17 10:08 Magnesium Sulfate 2 gm/Sodium Chloride 100 ml @ 50 mls/hr UNSCH PRN IV For Magnesium 1.2 - 1.6 mg/dL 11/21/17 13:30 11/22/17 05:09 Sodium Phosphate 30 mmol/Sodium Chloride 250 ml @ 42 mls/hr UNSCH PRN IV For Phosphorus < 2.5 mg/dL 11/21/17 13:30 11/21/17 22:53 Hydralazine HCl (Apresoline Inj) 10 mg Q4H PRN IV PUSH SYS BP GREATER THAN 160 MMHG 11/21/17 16:45 11/22/17 02:07 Metoprolol Tartrate (Lopressor Inj) 5 mg Q5M PRN IV PUSH HR>100 11/22/17 00:00 11/22/17 00:55 Hydromorphone HCl (Dilaudid Pf Inj) 0.5 mg Q4H PRN IV pain >5/10 11/22/17 02:45 11/22/17 14:09 Water (Free Water) 250 ml Q6H G-TUBE 11/22/17 09:00 11/22/17 14:08 Dextrose 1,000 ml @ 50 mls/hr Q20H IV 11/22/17 07:30 11/22/17 10:13 Metoprolol Tartrate (Lopressor) 50 mg Q12HR PO 11/22/17 09:00 11/22/17 10:20 Objective Remarks GENERAL: Lethargic elderly female, supine in bed. SKIN: Warm and dry. HEAD: Normocephalic. Xerostomia EYES: No injection or drainage. NECK: Supple, trachea midline. CARDIOVASCULAR: Regular rate and rhythm RESPIRATORY: Breath sounds equal bilaterally. No accessory muscle use. GASTROINTESTINAL: Abdomen soft, tender to palpation throughout. NG tube to low intermittent wall suction with dark contents in tubing. EXTREMITIES: No cyanosis, or edema. MUSCULOSKELETAL: Adequate muscle tone. NEUROLOGICAL: Lethargic. Not currently following commands. Assessment/Plan Problem List: (1) Idiopathic thrombocytopenia purpura ICD Codes: D69.3 - Immune thrombocytopenic purpura Status: Acute Plan: --platelets may be lower due to consumption and antibiotics. Platelet trended down to 23K this am but no bleeding noted. --had splenectomy in 2009. --was treated with Nplate in the past with good response. --per , patient's baseline is between 50-70K and she has not required treatment for ITP since spleen removal several years ago. --platelet count has been fluctuating between 40,000-70,000. --no indication to start treatment for the idiopathic thrombocytopenic purpura at this point. (2) Arterial occlusion ICD Codes: I70.90 - Unspecified atherosclerosis Plan: --started on Argatroban on 11/18, tolerated well, no evidence of bleeding despite low platelet. No evidence of recurrent clot. 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 --had embolectomy in September of this year. then started on Pradaxa, but later switched to Xarelto. --presented with abdominal pain and could have ischemic bowel (3) Abdominal pain ICD Codes: R10.9 - Unspecified abdominal pain Status: Acute Plan: --Await EGD/Colonoscopy when stable --presented with acute severe abdominal pain. --CT did not show any bowel obstruction. --Ultrasound also negative for occlusion or stenosis. 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 h/o Chronic anemia. Chronic back pain. Multiple compression fractures. Chronic obstructive pulmonary disease. Hypertension. Left popliteal arterial occlusion. Plan 1. Check stat H&H for possible new GI bleed 2. Further recommendations regarding argatroban will be decided once H&H resulted 3. Continue to monitor liver enzymes and bilirubin while on argatroban drip Attending Statement The exam, history, and the medical decision-making described in the above note were completed with the assistance of the mid-level provider. I reviewed and agree with the findings presented. I attest that I had a [id number] encounter with the patient on the same day, and personally performed and documented my assessment and findings in the medical record. 67 yoF with a history of ITP with platelet count trending approximately 50-70K outpatient. Admitted with abdominal pain and found to have likely embolic popliteal artery occlusion. She is currently on argatroban gtt. Falling H/H. bilious NG output. No output from rectal tube. On TPN. Diffuse, severe abdominal pain of uncertain etiology. altered mental status. Hypernatemia, renal injury. Risks vs benefits of continuation of anticoagulation in a critically ill lady with suspected embolic VTE and falling hemoglobin and TCP. Will continue to monitor CBC closely. If overall condition does not improve patient would benefit from palliative care consult for symptom management vs end of life discussion. Problem Qualifiers (1) Abdominal pain: Qualified Codes: R10.84 - Generalized abdominal pain Cortney Mahmood Nov 22, 2017 17:48 Dedra Lyle MD Nov 22, 2017 19:57
[2017-11-22 19:09] LABS: HEMATOCRIT 23.2 % (35.0-46.0); HEMOGLOBIN 8.2 GM/DL (11.6-15.3)
[2017-11-22] MEDS: FAT EMULSION 20% INJ 250 ML (@10 mls/hr) IV SCH (21:59)
[2017-11-22] MEDS: CLINIMIX 4.25/5 (Cust.Renal Periph) 1000 mL- </= 42 mls/hr IV SCH ×8 (21:59)
--- NOTE | 2017-11-22 23:06 | HHI.GIFU ---
GI Follow-up Note Consult Follow-up Subjective: Patient laying in bed comfortably, continue to have uncontrolled movements, better than yesterday . No nausea, vomiting, melena, hematemesis.Tube feeding not started, had increase in ngt op.On anticoagulation.AMS-possible metabolic encephalopathy-cause unclear . Mild elevated ammonia-on rifaximin/lactulose. Objective: PHYSICAL EXAMINATION: Vitals signs stable No fever HEENT: Pupils round and reactive to light; normocephalic; atraumatic; no jaundice. Throat is clear. NECK: Neck is supple, no JVD, no lymphadenopathy. CHEST: Chest is clear to auscultation and percussion. CARDIAC: Regular rate and rhythm with no murmur gallop or rubs. ABDOMEN: Soft, nondistended, nontender; no hepatosplenomegaly; bowel sounds are present in all four quadrants. EXTREMITIES: No clubbing, cyanosis, or edema. SKIN: Normal; no rash; no jaundice, purpura JOY LOADER: No focal deficits; awake, non responsive Available Data (labs, X- Rays, Procedues) : Laboratory Tests Test 11/21/17 06:00 11/21/17 12:22 11/21/17 20:05 11/22/17 03:35 White Blood Count 5.6 TH/MM3 7.4 TH/MM3 Red Blood Count 2.55 MIL/MM3 2.25 MIL/MM3 Hemoglobin 10.1 GM/DL 8.9 GM/DL Hematocrit 27.8 % 25.2 % Mean Corpuscular Volume 109.0 FL 112.0 FL Mean Corpuscular Hemoglobin 39.5 PG 39.3 PG Mean Corpuscular Hemoglobin Concent 36.2 % 35.1 % Red Cell Distribution Width 22.6 % 22.6 % Platelet Count 23 TH/MM3 30 TH/MM3 Mean Platelet Volume 8.6 FL 9.2 FL CBC Comment AUTO DIFF AUTO DIFF Differential Total Cells Counted 100 100 Neutrophils % (Manual) 62 % 64 % Band Neutrophils % 18 % 11 % Lymphocytes % 12 % 17 % Monocytes % 8 % 8 % Neutrophils # (Manual) 4.5 TH/MM3 5.6 TH/MM3 Differential Comment FINAL DIFF MANUAL FINAL DIFF MANUAL Toxic Granulation 1+ Platelet Estimate LOW LOW Platelet Morphology Comment NORMAL NORMAL Target Cells 1+ Keratocytes OCC Activated Partial Thromboplast Time 42.2 SEC 25.8 SEC Blood Urea Nitrogen 56 MG/DL 56 MG/DL Creatinine 1.77 MG/DL 1.47 MG/DL Random Glucose 150 MG/DL 135 MG/DL Total Protein 5.6 GM/DL 5.8 GM/DL Albumin 2.6 GM/DL 2.8 GM/DL Calcium Level 7.5 MG/DL 7.4 MG/DL Alkaline Phosphatase 66 U/L 67 U/L Aspartate Amino Transf (AST/SGOT) 78 U/L 79 U/L Alanine Aminotransferase (ALT/SGPT) 18 U/L 16 U/L Total Bilirubin 0.9 MG/DL 0.9 MG/DL Sodium Level 144 MEQ/L 151 MEQ/L Potassium Level 3.0 MEQ/L 2.9 MEQ/L 4.0 MEQ/L 3.3 MEQ/L Chloride Level 106 MEQ/L 111 MEQ/L Carbon Dioxide Level 29.3 MEQ/L 30.8 MEQ/L Anion Gap 9 MEQ/L 9 MEQ/L Estimat Glomerular Filtration Rate 28 ML/MIN 35 ML/MIN Phosphorus Level 0.6 MG/DL 2.9 MG/DL Nucleated Red Blood Cells 1 /100 WBC Atypical Lymphocytes % Magnesium Level 1.3 MG/DL Protein Corrected Calcium 8.1 MG/DL Ammonia 29 MCMOL/L Random Vancomycin Level 12.2 COMMENT Test 11/22/17 11:30 11/22/17 14:24 11/22/17 18:04 11/22/17 20:26 Activated Partial Thromboplast Time 40.8 SEC 44.8 SEC 44.8 SEC Phosphorus Level 2.0 MG/DL Hemoglobin 8.2 GM/DL Hematocrit 23.2 % Potassium Level 3.7 MEQ/L Test 11/23/17 00:57 Activated Partial Thromboplast Time 45.3 SEC ASSESSMENT/PLAN: severe abdominal pain on admission-suspect mesenteric ischemia on anticoagulation, bowel rest-improved ileus-no indication of obstruction so far elevated ammonia-unclear etiology anemia -multifactorial ITP elevated ast, mild dilated gb-hida scan is on hold due to patient agitation and clinical status-we will reorder once able to stay still Recommendation sbft in am egd/colonoscopy-when more stable-may need intubation discussed with -will think about it if intubation needed -explained that will be only temporary continue tpn start tf when able heavy metal screen liver w-up hida when able to stay still It was a pleasure seeing Pilar Cruz. Thank you for this consult. Entered by: Ina Wakefield MD Nov 22, 2017 23:06
[2017-11-23] VITALS (22 sets, daily range): BP systolic 111–143; BP diastolic 59–100; PULSE 75–101; RESP 16–36; TEMP 98.5–99; O2SAT 94–97
[2017-11-23] MEDS: RESP: ALBUTEROL 2.5 MG/3 ML NEB (SCH) INH ×6 (00:19→19:26)
[2017-11-23] MEDS: HYDROmorphone HCL PF 2 MG/ML VIAL IV PRN ×5 (02:22→20:01)
[2017-11-23] MEDS: FREE WATER G-TUBE SCH ×4 (02:22→20:00)
[2017-11-23] MEDS: DEXTROSE 5% IN WATE 1000ML INJ 1,000 ML IV SCH ×2 (02:22→22:28)
[2017-11-23] MEDS: metroNIDAZOLE 500 MG INJ 100 ML IV SCH ×3 (03:37→20:00)
[2017-11-23] MEDS: CHLORHEXIDINE GLUCONATE 2 % 1 PACK (2 CLOTHS) TOP SCH (03:38)
[2017-11-23] MEDS: DILTIAZEM HCL 60 MG TAB PO SCH ×4 (05:37→23:49)
[2017-11-23 06:55] LABS: AUTOMATED NEUTROPHIL # 5.8 TH/MM3 (1.8-7.7); BASOPHIL % 0.4 % (0.0-2.0); EOSINOPHIL # 0.1 TH/MM3 (0-0.4); EOSINOPHIL % 1.2 % (0.0-4.0); HEMATOCRIT 22.8 % (35.0-46.0); HEMOGLOBIN 7.8 GM/DL (11.6-15.3); LYMPHOCYTE # 1.6 TH/MM3 (1.0-4.8); MEAN CELL VOLUME 112.4 FL (80.0-100.0); MEAN CORPUSCULAR HEMOGLOBIN 38.5 PG (27.0-34.0); MEAN CORPUSCULAR HGB CONC 34.2 % (32.0-36.0); MEAN PLATELET VOLUME 8.9 FL (7.0-11.0); MONO % 10.5 % (0.0-8.0); MONOCYTE # 0.9 TH/MM3 (0-0.9); NEUT % 68.9 % (16.0-70.0); RED BLOOD COUNT 2.03 MIL/MM3 (4.00-5.30); RED CELL DISTRIBUTION WIDTH 21.8 % (11.6-17.2); WHITE BLOOD COUNT 8.4 TH/MM3 (4.0-11.0)
[2017-11-23 07:03] LABS: INTERNATIONAL NORMALIZED RATIO 3.1 RATIO; PLATELET COUNT 17 TH/MM3 (150-450); PROTHROMBIN TIME - PATIENT 31.1 SEC (9.8-11.6)
--- NOTE | 2017-11-23 07:20 | RADRPT ---
EXAM DATE/TIME: 11/23/2017 06:14 [facility] COMPARISON: ABDOMEN KUB ONLY, November 20, 2017, 10:33. INDICATIONS : Lack of bowel movements. MEDICAL HISTORY : Hypertension. Chronic obstructive pulmonary disease. Arthritis. Anemia Chronic ITP SURGICAL HISTORY : Splenectomy. section. Bone marrow bx. ENCOUNTER: Subsequent ACUITY: 4 - 6 days PAIN SCORE: Non-responsive. LOCATION: Bilateral entire abdomen FINDINGS: Supine view of the abdomen was performed. Gas and stool is noted segments within the colon. There are several loops of nondilated air-containing small bowel.. No abnormal masses, calcifications, or org anomegaly is seen. The osseous structures are unremarkable. The rectal catheter remains in place. St atus post right hip arthroplasty. CONCLUSION: Nonobstructive bowel gas pattern without significant change. Ousmane Aguilar MD on November 23, 2017 at 7:16 Board Certified Radiologist. This report was verified electronically.
[2017-11-23 07:34] LABS: ALBUMIN 2.6 GM/DL (3.4-5.0); BICARBONATE 31.3 MEQ/L (21.0-32.0); CALCIUM-PROTEIN CORRECTED 7.9 MG/DL (8.5-10.1); CREATININE 1.16 MG/DL (0.50-1.00); MAGNESIUM 1.4 MG/DL (1.5-2.5); PHOSPHORUS 1.3 MG/DL (2.5-4.9); RANDOM VANCOMYCIN 19.8 COMMENT; TOTAL BILIRUBIN ADULT 0.5 MG/DL (0.2-1.0); TOTAL PROTEIN 5.3 GM/DL (6.4-8.2)
[2017-11-23] MEDS: RESP: BUDESONIDE 0.25 MG/2 ML NEB NEB SCH (08:20)
[2017-11-23 08:50] LABS: BANDS 19 % (0-6); LYMPHOCYTES 18 % (9-44); MONOCYTES 8 % (0-8); NEUTROPHIL # MANUAL DIFF 6.2 TH/MM3 (1.8-7.7); POLYS (SEG NEUTROPHILS) 55 % (16-70)
[2017-11-23 08:56] LABS: HOWELL-JOLLY BODIES PRESENT (NONE SEEN); KERATOCYTES OCC (NORMAL); TOXIC GRANULATION 1+ (NORMAL)
[2017-11-23] MEDS: TIOTROPIUM BROMIDE 18 MCG INH INH SCH (09:00)
[2017-11-23] MEDS: FAMOTIDINE 20 MG/2 ML VIAL IV PUSH SCH ×2 (09:54→20:00)
[2017-11-23] MEDS: LACTULOSE SYRUP 20 GM/30 ML CUP PO SCH ×3 (09:54→17:38)
[2017-11-23] MEDS: DOCUSATE SODIUM 50 MG/SENNA 8.6 MG TAB PO SCH ×2 (09:54→20:01)
[2017-11-23] MEDS: SODIUM CHLORIDE 0.9% FLUSH 10 ML FLUSH IV FLUSH SCH ×2 (09:56→20:00)
[2017-11-23] MEDS: CEFEPIME INJ 2,000 MG in SODIUM CHLORIDE 0.9% INJ 100 ML IV SCH (10:03)
[2017-11-23] MEDS: METOPROLOL TARTRATE 50 MG TAB PO SCH ×2 (10:03→20:01)
[2017-11-23] MEDS: RIFAXIMIN 550 MG TAB PO SCH ×2 (10:04→20:01)
--- NOTE | 2017-11-23 10:21 | HHI.GIFU ---
Subjective Remarks Pt remains agitated and confused at bedside Remains on TPN NGT to LIWS with significant amount of green drainage Stool collection bag with small amount of loose, brown stool (Lesa Piedra) Objective Vitals I&O Vital Signs Date Time Temp Pulse Resp B/P (MAP) Pulse Ox O2 Delivery O2 Flow Rate FiO2 11/23/17 09:00 95 11/23/17 08:20 96 Nasal Cannula 4.00 11/23/17 08:00 91 11/23/17 07:00 87 11/23/17 06:00 92 11/23/17 04:00 98.7 88 32 143/74 (97) 96 11/23/17 04:00 88 11/23/17 02:00 91 11/23/17 00:00 75 11/23/17 00:00 98.7 77 16 126/59 (81) 97 11/22/17 22:00 95 11/22/17 20:26 98 Nasal Cannula 4.00 11/22/17 20:00 98.9 88 26 127/82 (97) 96 11/22/17 20:00 88 11/22/17 18:00 98 11/22/17 17:00 92 11/22/17 16:00 90 11/22/17 16:00 99.0 90 31 142/69 (93) 96 11/22/17 15:00 86 11/22/17 14:00 101 11/22/17 13:00 87 11/22/17 12:00 81 11/22/17 12:00 100.0 81 17 133/65 (87) 97 11/22/17 11:00 88 I/O 11/22/17 11/22/17 11/22/17 11/23/17 11/23/17 11/23/17 07:00 15:00 23:00 07:00 15:00 23:00 Intake Total 450 ml 200 ml 2002.5 ml 1600 ml Output Total 1430 ml 2500 ml 1200 ml Balance -980 ml 200 ml -497.5 ml 400 ml Intake Oral 0 ml 0 ml IV Total 450 ml 200 ml 1822.5 ml 1100 ml Other 180 ml 500 ml Output Urine Total 1400 ml 1500 ml 800 ml Stool Total 10 ml 0 ml Gastric Drainage Total 20 ml 1000 ml 400 ml Laboratory Laboratory Tests Test 11/22/17 11:30 11/22/17 14:24 11/22/17 18:04 11/22/17 20:26 Activated Partial Thromboplast Time 40.8 44.8 44.8 Phosphorus Level 2.0 Hemoglobin 8.2 Hematocrit 23.2 Potassium Level 3.7 Test 11/23/17 00:57 11/23/17 05:36 Activated Partial Thromboplast Time 45.3 42.9 White Blood Count 8.4 Red Blood Count 2.03 Hemoglobin 7.8 Hematocrit 22.8 Mean Corpuscular Volume 112.4 Mean Corpuscular Hemoglobin 38.5 Mean Corpuscular Hemoglobin Concent 34.2 Red Cell Distribution Width 21.8 Platelet Count 17 Mean Platelet Volume 8.9 Neutrophils (%) (Auto) 68.9 Lymphocytes (%) (Auto) 19.0 Monocytes (%) (Auto) 10.5 Eosinophils (%) (Auto) 1.2 Basophils (%) (Auto) 0.4 Neutrophils # (Auto) 5.8 Lymphocytes # (Auto) 1.6 Monocytes # (Auto) 0.9 Eosinophils # (Auto) 0.1 Basophils # (Auto) 0.0 CBC Comment AUTO DIFF Differential Total Cells Counted 100 Neutrophils % (Manual) 55 Band Neutrophils % 19 Lymphocytes % 18 Monocytes % 8 Neutrophils # (Manual) 6.2 Differential Comment FINAL DIFF MANUAL Toxic Granulation 1+ Platelet Estimate RARE Platelet Morphology Comment NORMAL Ybarra-Anthony Bodies PRESENT Keratocytes OCC Red Cell Morphology Comment Prothrombin Time 31.1 Prothromb Time International Ratio 3.1 Fibrinogen 496 Blood Urea Nitrogen 51 Creatinine 1.16 Random Glucose 155 Total Protein 5.3 Albumin 2.6 Calcium Level 7.0 Phosphorus Level 1.3 Magnesium Level 1.4 Alkaline Phosphatase 52 Aspartate Amino Transf (AST/SGOT) 48 Alanine Aminotransferase (ALT/SGPT) 13 Total Bilirubin 0.5 Sodium Level 147 Potassium Level 3.4 Chloride Level 108 Carbon Dioxide Level 31.3 Anion Gap 8 Estimat Glomerular Filtration Rate 46 Protein Corrected Calcium 7.9 Random Vancomycin Level 19.8 Date/Time Source Procedure Growth Status 11/16/17 23:45 Blood Peripheral Aerobic Blood Culture - Final NO GROWTH IN 5 DAYS Complete 11/16/17 23:45 Blood Peripheral Anaerobic Blood Culture - Final NO GROWTH IN 5 DAYS Complete 11/18/17 14:25 Stool Stool Stool Occult Blood (KIM) - Final HEMOCCULT POSITIVE Complete Imaging Last Impressions Brain MRI 11/20/17 1409 Signed Impressions: Service Date/Time: October 20:54 - CONCLUSION: 1. No acute intracranial abnormality. Right-sided mastoid air cell disease. No recent infarct, mass effect or shift. Roby Brito MD Chest X-Ray 11/20/17 0600 Signed Impressions: Service Date/Time: October 04:36 - CONCLUSION: Bibasilar infiltrates, left greater than right. Víctor Bates MD Lower Extremity Ultrasound 11/20/17 0000 Signed Impressions: Service Date/Time: October 11:48 - CONCLUSION: 1. No evidence of DVT. 2. Small right Stovall's cyst. Keven Lake MD Head CT 11/20/17 0000 Signed Impressions: Service Date/Time: October 11:29 - CONCLUSION: 1. Focal decreased attenuation involving the right armin consistent with lacunar infarct or ischemic change. 2. No acute hemorrhage, midline shift or extra-axial fluid collections. 3. Small fluid level within the right sphenoid sinus. Swapnil Saldaña MD Abdomen X-Ray 11/20/17 0000 Signed Impressions: Service Date/Time: October 10:33 - CONCLUSION: No bowel obstruction or ileus. Swapnil Saldaña MD Chest CT 11/19/17 0000 Signed Impressions: Service Date/Time: Sunday, November 19, 2017 17:10 - CONCLUSION: Minimal consolidative changes as above Small pleural effusions. Luis A Castillo MD FACR Abdomen/Pelvis CT 11/19/17 0000 Signed Impressions: Service Date/Time: Sunday, November 19, 2017 17:10 - CONCLUSION: Trace ascites or subcapsular fluid around liver Prominent gallbladder Luis A Castillo MD FACR Abdomen Ultrasound 11/17/17 0000 Signed Impressions: Service Date/Time: Friday, November 17, 2017 08:01 - CONCLUSION: Negative for occlusion or significant stenosis. Luis A Castillo MD FACR Physical Exam HEENT: Normocephalic; atraumatic CHEST: Irregular breathing with accessory muscle use CARDIAC: RR ABDOMEN: Soft, mildly distended, bowel sounds active. NGT to LIWS liquid brown stool in collection bag SKIN: Normal; no rash; no jaundice. LIFTS AND CRANES INSPECTOR: Awake (Lesa Piedra [facility]) Assessment and Plan Plan ASSESSMENT - Abdominal pain and distention- KUB (11/17) --> No signs of obstruction, ileus or perforation. US abd SMA/Celiac --> Negative for occlusion or significant stenosis. - Anemia- macrocytic- H/H dropped to 6.7/20.2 yesterday- received one unit PRBCs- currently 05/26.9. No signs of GIB via NGT or rectal output. 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 Going down for CT abdomen/pelvis now. (11/21) Pt increasingly confused, nonverbal during exam. MRI brain done to evaluate change in mental status which showed no acute findings. Ammonia-46 possible cause of encephalopathy. Pt now on Xifaxan and Lactulose. (11/23) Remains confused and agitated. Ammonia now WNL. Unclear cause of metabolic encephalopathy. Anemia and thrombocytopenia. Drop in H/H and platelets now 17. Not stable for endoscopic procedures. SBFT ordered, pt to agitated for procedure. wanting to hold off on this at this time Liver DIAZ pending, serum mercury, Vit D A C, serum copper Reexamined at 11:28 Pt is now alert and oriented, complaining of pain but can not localize it. Per RN reports of dark red blood through NGT. Palliative care consult pending now that pt is alert and oriented and able to participate in health care decisions. Remains at very high risk for procedures and her wishes should be addressed, likely to require intubation for endoscopic procedures. Platelet replacement per hematology. PLAN - SBFT when able - Liver DIAZ and labs listed above pending - Xifaxan - Lactulose - NGT to LIWS - Rectal tube to collection bag - EGD/colonoscopy when stable - Monitor H/H, platelets - Transfuse per [facility] - Notify GI of active bleeding - TPN - Pepcid - Further recommendations based on clinical course Pt has been seen and examined by myself and Dr. Howell and this note is written on her behalf (Lesa Piedra) Physician Comments seen, examined agree with above sbft in am if possible egd/colon when stable await palliative care consult (Ina Howell MD) Lesa Piedra Nov 23, 2017 10:21 Ina Howell MD Nov 23, 2017 14:13
[2017-11-23] MEDS: POTASSIUM PHOSPHATE INJ 30 MMOL in SODIUM CHLOR 0.9% 250 ML INJ 250 ML IV PRN (10:26)
--- NOTE | 2017-11-23 10:48 | HHI.CCPN ---
Subjective Remarks/Hospital Course This is a 67-year-old female that presented to [facility], by private transportation for evaluation of severe abdominal pain. Patient states of the past week she has had constipation so last evening took laxatives ( Senokot) x 3 days, and then today had large bowel movement multiple times with development of severe lower abdominal pain. Patient had subsequently noted some abdominal distention. Patient states her abdomen is exquisitely tender with any movement. Patient also complains of some epigastric pain. 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 No report of hematemesis or coffee-ground emesis. Patient states after bowel movements no report of melena or hematochezia. Patient rates her abdominal pain 10/10 in intensity, without relief of narcotics. The patient was transferred to [facility] , critical care medicine was consulted. Subjective: 11/18: Overnight the patient was known to be oliguric, the patient received approximately 5 L of normal saline , and 500 cc of 5% albumin during the night. NG tube output approximately 700 cc since admission. The patient was noted to be mildly confused this a.m. and progressively worsened. O2 saturation was 100% ,stat ABGs performed, metabolic acidosis with a bicarbonate level of 16. Patient received 2 A of sodium bicarbonate and bicarbonate infusion was initiated. Patient also was noted to be hypocalcemic this a.m. and received 2 g of calcium gluconate. The patient was started on Argatroban infusion after discussion with Dr. Howell, plan for endoscopy tomorrow . The patient was previously on Xarelto for DVT prophylaxis.Repeat labs performed early this afternoon revealed hemoglobin of 6.7, 1 unit of PRBC being transfused. She required restraints, for patient safety. Repeat labs pending this evening posttransfusion. 11/19: Afebrile. Last evening the patient became more confused metabolic acidosis, placed on sodium bicarbonate infusion, now corrected. Patient alert, following commands. Sodium bicarbonate infusion discontinued. Patient noted to be severely anemic with hemoglobin of 6.2 received 1 unit of PRBCs, last hemoglobin 9.4, stable. Continued serial monitoring of H&H labs pending this a.m.. Patient noted to have improvement in urine output overnight. EGD placed on hold. 11/20 No events overnight. Afebrile, on 3L oxygen. 11/21 Patient is on 2L oxygen. MRI brain last night showed no acute abnormalities. Afebrile. Lethargic 11/22 Patient is on 3L oxygen. Renal function is improving with Cr: 1.47 from 1.77. On Argatroban drip. 11/23 No events overnight, On Argatroban drip. Cr: 1.16 from 1.47. Objective Vital Signs Date Time Temp Pulse Resp B/P (MAP) Pulse Ox O2 Delivery O2 Flow Rate FiO2 11/23/17 09:00 95 11/23/17 08:20 96 Nasal Cannula 4.00 11/23/17 04:00 98.7 32 143/74 (97) Intake and Output 11/23/17 11/23/17 11/24/17 08:00 16:00 00:00 Intake Total 1600 ml Output Total 1200 ml Balance 400 ml Result Diagram: 11/23/17 0536 11/23/17 0536 Other Results Laboratory Tests Test 11/22/17 11:30 11/22/17 14:24 11/22/17 18:04 11/22/17 20:26 Activated Partial Thromboplast Time 40.8 SEC 44.8 SEC 44.8 SEC Phosphorus Level 2.0 MG/DL Hemoglobin 8.2 GM/DL Hematocrit 23.2 % Potassium Level 3.7 MEQ/L Test 11/23/17 00:57 11/23/17 05:36 Activated Partial Thromboplast Time 45.3 SEC 42.9 SEC White Blood Count 8.4 TH/MM3 Red Blood Count 2.03 MIL/MM3 Hemoglobin 7.8 GM/DL Hematocrit 22.8 % Mean Corpuscular Volume 112.4 FL Mean Corpuscular Hemoglobin 38.5 PG Mean Corpuscular Hemoglobin Concent 34.2 % Red Cell Distribution Width 21.8 % Platelet Count 17 TH/MM3 Mean Platelet Volume 8.9 FL Neutrophils (%) (Auto) 68.9 % Lymphocytes (%) (Auto) 19.0 % Monocytes (%) (Auto) 10.5 % Eosinophils (%) (Auto) 1.2 % Basophils (%) (Auto) 0.4 % Neutrophils # (Auto) 5.8 TH/MM3 Lymphocytes # (Auto) 1.6 TH/MM3 Monocytes # (Auto) 0.9 TH/MM3 Eosinophils # (Auto) 0.1 TH/MM3 Basophils # (Auto) 0.0 TH/MM3 CBC Comment AUTO DIFF Differential Total Cells Counted 100 Neutrophils % (Manual) 55 % Band Neutrophils % 19 % Lymphocytes % 18 % Monocytes % 8 % Neutrophils # (Manual) 6.2 TH/MM3 Differential Comment FINAL DIFF MANUAL Toxic Granulation 1+ Platelet Estimate RARE Platelet Morphology Comment NORMAL [place] Bodies PRESENT Keratocytes OCC Red Cell Morphology Comment Prothrombin Time 31.1 SEC Prothromb Time International Ratio 3.1 RATIO Fibrinogen 496 mg/dL Blood Urea Nitrogen 51 MG/DL Creatinine 1.16 MG/DL Random Glucose 155 MG/DL Total Protein 5.3 GM/DL Albumin 2.6 GM/DL Calcium Level 7.0 MG/DL Phosphorus Level 1.3 MG/DL Magnesium Level 1.4 MG/DL Alkaline Phosphatase 52 U/L Aspartate Amino Transf (AST/SGOT) 48 U/L Alanine Aminotransferase (ALT/SGPT) 13 U/L Total Bilirubin 0.5 MG/DL Sodium Level 147 MEQ/L Potassium Level 3.4 MEQ/L Chloride Level 108 MEQ/L Carbon Dioxide Level 31.3 MEQ/L Anion Gap 8 MEQ/L Estimat Glomerular Filtration Rate 46 ML/MIN Protein Corrected Calcium 7.9 MG/DL Random Vancomycin Level 19.8 COMMENT Imaging Last Impressions Brain MRI 11/20/17 1409 Signed Impressions: Service Date/Time: October 20:54 - CONCLUSION: 1. No acute intracranial abnormality. Right-sided mastoid air cell disease. No recent infarct, mass effect or shift. Roby Brito MD Chest X-Ray 11/20/17 0600 Signed Impressions: Service Date/Time: October 04:36 - CONCLUSION: Bibasilar infiltrates, left greater than right. Víctor Bates MD Lower Extremity Ultrasound 11/20/17 0000 Signed Impressions: Service Date/Time: October 11:48 - CONCLUSION: 1. No evidence of DVT. 2. Small right Stovall's cyst. Keven Lake MD Head CT 11/20/17 0000 Signed Impressions: Service Date/Time: October 11:29 - CONCLUSION: 1. Focal decreased attenuation involving the right armin consistent with lacunar infarct or ischemic change. 2. No acute hemorrhage, midline shift or extra-axial fluid collections. 3. Small fluid level within the right sphenoid sinus. Swapnil Saldaña MD Abdomen X-Ray 11/20/17 0000 Signed Impressions: Service Date/Time: October 10:33 - CONCLUSION: No bowel obstruction or ileus. Swapnil Saldaña MD Chest CT 11/19/17 0000 Signed Impressions: Service Date/Time: Sunday, November 19, 2017 17:10 - CONCLUSION: Minimal consolidative changes as above Small pleural effusions. Luis A Castillo MD FACR Abdomen/Pelvis CT 11/19/17 0000 Signed Impressions: Service Date/Time: Sunday, November 19, 2017 17:10 - CONCLUSION: Trace ascites or subcapsular fluid around liver Prominent gallbladder Luis A Castillo MD FACR Abdomen Ultrasound 11/17/17 0000 Signed Impressions: Service Date/Time: Friday, November 17, 2017 08:01 - CONCLUSION: Negative for occlusion or significant stenosis. Luis A Castillo MD FACR Objective Remarks GENERAL: This is a pale thin female lethargic SKIN: Warm and dry. Pale HEAD: Atraumatic. Normocephalic. EYES: Pupils equal and round. No scleral icterus. No injection or drainage. ENT: No nasal bleeding or discharge. Mucous membranes pink and moist. NG tube to LIWS-300cc- bilious NECK: Trachea midline. No JVD. CARDIOVASCULAR: Tachycardic rate, regular rhythm. RESPIRATORY: No accessory muscle use. Clear to auscultation. Breath sounds equal bilaterally.Nasal Cannula 3 L/m GASTROINTESTINAL: Abdomen soft, non-tender, nondistended. No guarding. MUSCULOSKELETAL: Extremities without clubbing, cyanosis, or edema. No obvious deformities. NEUROLOGICAL:Lethargic. No gross focal/sensory deficits. Follows commands in all 4 extremities. A/P Problem List: (1) Chronic anemia ICD Code: D64.9 - Anemia, unspecified Status: Acute (2) Idiopathic thrombocytopenia purpura ICD Code: D69.3 - Immune thrombocytopenic purpura Status: Acute (3) COPD (chronic obstructive pulmonary disease) ICD Code: J44.9 - Chronic obstructive pulmonary disease, unspecified Status: Acute (4) NISHANT (acute kidney injury) ICD Code: N17.9 - Acute kidney failure, unspecified Status: Acute (5) Chronic back pain ICD Code: M54.9 - Dorsalgia, unspecified; G89.29 - Other chronic pain Status: Acute (6) Hypertension ICD Code: I10 - Essential (primary) hypertension Status: Acute (7) Acute and chronic respiratory failure with hypoxia ICD Code: J96.21 - Acute and chronic respiratory failure with hypoxia Status: Acute (8) Abdominal pain ICD Code: R10.9 - Unspecified abdominal pain Status: Acute (9) Metabolic acidemia ICD Code: E87.2 - Acidosis Status: Acute Assessment and Plan Assessment Plan Plan by systems: Neurologic: Chronic back pain 10/03 impression fractures Neurochecks per ICU protocol MRI brain 11/21 no acute abnormalities 11/20 EEG: bihemispheric slowing. There are some intermixed slow sharp waves, but no distinct paroxysmal discharges. The pattern suggests severe bilateral abnormalities, either metabolic or structural Neuro is following- Dr. Hyman Dilaudid 0.5 mg every 4 hours when necessary for breakthrough pain scale 7-10 Tylenol 650 mg every 6 hours when necessary for pain or temperature greater than 100.5 Patient on home dose Tayl[place] for pain control will hold for now Respiratory: COPD Asthma Home O2 dependency Continue with oxygen keep sats >92% home O2 dependency Continue DuoNeb, Spiriva and budesonide- home medications Aspiration precautions Cardiovascular: Hypertension Sinus tachycardia On Cardizem 60mg Q6, Lopressor 50mg Q12. Keep MAP>65mmHg Renal: NISHANT Monitor renal function, I/O's, electrolytes replacement as needed. Will need K, Mag, Phos replacement Renal function is improving with Cr:1.16 from 1.47 FEN/GI: Elevated LFT's On PPN/Iipids, GI and surgery are following CT abd/pelvis: Trace ascites or subcapsular fluid around liver Prominent gallbladder US abdomen: Negative for occlusion or significant stenosis. NGT to LIWS- 1400ml gastric drainage from NGT For small bowel series with Gastrografin per GI Free water 250ml Q6, D5W@50ml/hr KUB 11/21 showed no obstruction. Wean off PPN , tube feeds started by GI ( Jevity 1.5 with goal rate 50ml/hr) On Rifaximin, Lactulose monitor ammonia level ( 29) ID: Continue abx ( Cefepime, Flagyl, Vanco) monitor for signs of infections ( Fever , WBC) BC 11/16:NGTD, panculture today, check CXR ID eval Heme History of DVT 09/2017 Chronic ITP Hematology following-Dr. Luong. Will transfuse 1u PLT pheresis today for PLT 17 11/17, 11/18 Transfused 1u PRBC Platelet count normally 40-70,000 Patient had left popliteal embolectomy 09/2017, Dr. Mixon and was placed on Pradaxa, patient under the care of proposal lead writer Dr. Reyna. 11/18 Patient takes Xarelto 20mg/d (on hold)on Argatroban infusion per Heme Doppler US LE negative for DVT Endocrine: Hyperglycemia of critical illness Glucose monitoring per ICU [id number] regimen -- SSI Prophylaxis: GI Prophylaxis Famotidine BID DVT Prophylaxis -- SCDs Patient's home med include Xarelto. on Argatroban Lines: Peripheral IVs 2. Level 2 Problem Qualifiers (1) Abdominal pain: Qualified Codes: R10.84 - Generalized abdominal pain Nevaeh Saldana MD Nov 23, 2017 10:47
--- NOTE | 2017-11-23 11:22 | PD.ONC.PN ---
Subjective Subjective Remarks Afebrile overnight Pt much more lucid this am- following commands, answering questions Complaining of SOB Per son at bedside he thinks the output from the NGT appears to be more maroon in color. Objective Data Date Time Temp Pulse Resp B/P (MAP) Pulse Ox O2 Delivery O2 Flow Rate FiO2 11/23/17 09:00 95 11/23/17 08:20 96 Nasal Cannula 4.00 11/23/17 08:00 91 11/23/17 07:00 87 11/23/17 06:00 92 11/23/17 04:00 98.7 88 32 143/74 (97) 96 11/23/17 04:00 88 11/23/17 02:00 91 11/23/17 00:00 75 11/23/17 00:00 98.7 77 16 126/59 (81) 97 11/22/17 22:00 95 11/22/17 20:26 98 Nasal Cannula 4.00 11/22/17 20:00 98.9 88 26 127/82 (97) 96 11/22/17 20:00 88 11/22/17 18:00 98 11/22/17 17:00 92 11/22/17 16:00 90 11/22/17 16:00 99.0 90 31 142/69 (93) 96 11/22/17 15:00 86 11/22/17 14:00 101 11/22/17 13:00 87 11/22/17 12:00 81 11/22/17 12:00 100.0 81 17 133/65 (87) 97 11/23/17 11/23/17 11/23/17 07:00 15:00 23:00 Intake Total 1600 ml Output Total 1200 ml Balance 400 ml Result Diagram: 11/23/17 0536 11/23/17 0536 Laboratory Results Laboratory Tests Test 11/22/17 11:30 11/22/17 14:24 11/22/17 18:04 11/22/17 20:26 Activated Partial Thromboplast Time 40.8 SEC 44.8 SEC 44.8 SEC Phosphorus Level 2.0 MG/DL Hemoglobin 8.2 GM/DL Hematocrit 23.2 % Potassium Level 3.7 MEQ/L Test 11/23/17 00:57 11/23/17 05:36 Activated Partial Thromboplast Time 45.3 SEC 42.9 SEC White Blood Count 8.4 TH/MM3 Red Blood Count 2.03 MIL/MM3 Hemoglobin 7.8 GM/DL Hematocrit 22.8 % Mean Corpuscular Volume 112.4 FL Mean Corpuscular Hemoglobin 38.5 PG Mean Corpuscular Hemoglobin Concent 34.2 % Red Cell Distribution Width 21.8 % Platelet Count 17 TH/MM3 Mean Platelet Volume 8.9 FL Neutrophils (%) (Auto) 68.9 % Lymphocytes (%) (Auto) 19.0 % Monocytes (%) (Auto) 10.5 % Eosinophils (%) (Auto) 1.2 % Basophils (%) (Auto) 0.4 % Neutrophils # (Auto) 5.8 TH/MM3 Lymphocytes # (Auto) 1.6 TH/MM3 Monocytes # (Auto) 0.9 TH/MM3 Eosinophils # (Auto) 0.1 TH/MM3 Basophils # (Auto) 0.0 TH/MM3 CBC Comment AUTO DIFF Differential Total Cells Counted 100 Neutrophils % (Manual) 55 % Band Neutrophils % 19 % Lymphocytes % 18 % Monocytes % 8 % Neutrophils # (Manual) 6.2 TH/MM3 Differential Comment FINAL DIFF MANUAL Toxic Granulation 1+ Platelet Estimate RARE Platelet Morphology Comment NORMAL [place] Bodies PRESENT Keratocytes OCC Red Cell Morphology Comment Prothrombin Time 31.1 SEC Prothromb Time International Ratio 3.1 RATIO Fibrinogen 496 mg/dL Blood Urea Nitrogen 51 MG/DL Creatinine 1.16 MG/DL Random Glucose 155 MG/DL Total Protein 5.3 GM/DL Albumin 2.6 GM/DL Calcium Level 7.0 MG/DL Phosphorus Level 1.3 MG/DL Magnesium Level 1.4 MG/DL Alkaline Phosphatase 52 U/L Aspartate Amino Transf (AST/SGOT) 48 U/L Alanine Aminotransferase (ALT/SGPT) 13 U/L Total Bilirubin 0.5 MG/DL Sodium Level 147 MEQ/L Potassium Level 3.4 MEQ/L Chloride Level 108 MEQ/L Carbon Dioxide Level 31.3 MEQ/L Anion Gap 8 MEQ/L Estimat Glomerular Filtration Rate 46 ML/MIN Protein Corrected Calcium 7.9 MG/DL Random Vancomycin Level 19.8 COMMENT Administered Medications Medications (Trade) Dose Ordered Sig/Colton Route PRN Reason Start Time Stop Time Status Last Admin Dose Admin Sodium Chloride (NS Flush) 2 ml UNSCH PRN IV FLUSH FLUSH AFTER USING IV ACCESS 11/17/17 06:45 11/17/17 08:29 Sodium Chloride (NS Flush) 2 ml BID IV FLUSH 11/17/17 09:00 11/23/17 09:56 Acetaminophen (Tylenol) 650 mg Q6H PRN PO PAIN 1-10 AND/OR FEVER >101F 11/17/17 06:45 11/22/17 04:21 Albuterol/ Ipratropium (Duoneb Neb) 1 ampule Q4HR NEB PRN INH WHEEZING 11/17/17 06:45 11/19/17 12:31 Miscellaneous Information 1 Q361D XX 11/17/17 06:45 11/17/17 06:45 Chlorhexidine Gluconate (Chlorhexidine 2% Cloth) Taper DAILY@04 TOP 11/18/17 04:00 11/14/18 03:59 11/23/17 03:38 Senna/Docusate Sodium (Rita-Colace) 1 tab BID PO 11/17/17 09:00 11/23/17 09:54 Sennosides (Senokot) 17.2 mg Q12H PRN PO Moderate constipation 11/17/17 06:45 11/17/17 09:11 Lactulose (Lactulose Liq) 30 ml DAILY PRN PO SEVERE CONSITIPATION 11/17/17 06:45 11/17/17 09:11 Albuterol Sulfate (Albuterol Neb) 2.5 mg Q4HR NEB PRN NEB SHORTNESS OF BREATH 11/17/17 07:45 11/21/17 01:45 Budesonide (Pulmicort Respule Neb) 0.25 mg DAILY NEB NEB 11/17/17 08:00 11/23/17 08:20 Cefepime HCl 2000 mg/Sodium Chloride 100 ml @ 200 mls/hr Q24H IV 11/18/17 09:00 11/23/17 10:03 Metronidazole 100 ml @ 100 mls/hr Q8H IV 11/17/17 20:00 11/23/17 03:37 Argatroban 250 mg/ Sodium Chloride 252.5 ml @ 1.92 mls/hr TITRATE PRN IV aPTT < 50 11/18/17 12:45 11/22/17 15:20 Famotidine (Pepcid Inj) 10 mg Q12HR IV PUSH 11/18/17 21:00 11/23/17 09:54 Sodium Chloride 5.5 meq/Sodium Acetate 29.5 meq/ Potassium Chloride 20 meq/ Magnesium Chloride 5 meq/ Calcium Chloride 4.5 meq/ Multivitamins 10 ml/Folic Acid 1 mg/Amino Acids/ Dextrose 1,042.1719 ml @ 42 mls/hr Q24H IV 11/19/17 20:00 11/22/17 21:59 Fat Emulsion Intravenous 250 ml @ 10 mls/hr Q24H IV 11/19/17 20:00 11/22/17 21:59 Diltiazem HCl (Cardizem) 60 mg Q6HR PO 11/20/17 12:00 11/23/17 05:37 Rifaximin (Xifaxan) 550 mg BID PO 11/20/17 21:00 11/23/17 10:04 Albuterol Sulfate (Albuterol Neb) 2.5 mg Q4HR NEB INH 11/21/17 04:00 11/23/17 08:20 Lactulose (Lactulose Liq) 15 ml TID PO 11/21/17 09:00 11/23/17 09:54 Potassium Chloride 100 ml @ 50 mls/hr Q2H PRN IV For Potassium 2.8 - 3.2 mEq/L 11/21/17 13:30 11/21/17 17:07 Potassium Bicarb/ Potassium Chloride (K-Lyte Cl Eff) 50 meq UNSCH PRN PO For Potassium 3.3 - 3.5 mEq/L 11/21/17 13:30 11/21/17 13:47 Potassium Chloride 100 ml @ 50 mls/hr Q2H PRN IV For Potassium 3.3 - 3.5 mEq/L 11/21/17 13:30 11/22/17 10:08 Magnesium Sulfate 2 gm/Sodium Chloride 100 ml @ 50 mls/hr UNSCH PRN IV For Magnesium 1.2 - 1.6 mg/dL 11/21/17 13:30 11/22/17 05:09 Sodium Phosphate 30 mmol/Sodium Chloride 250 ml @ 42 mls/hr UNSCH PRN IV For Phosphorus < 2.5 mg/dL 11/21/17 13:30 11/21/17 22:53 Potassium Phosphate 30 mmol/ Sodium Chloride 260 ml @ 42 mls/hr UNSCH PRN IV SEE LABEL COMMENTS 11/21/17 13:30 11/23/17 10:26 Hydralazine HCl (Apresoline Inj) 10 mg Q4H PRN IV PUSH SYS BP GREATER THAN 160 MMHG 11/21/17 16:45 11/22/17 02:07 Metoprolol Tartrate (Lopressor Inj) 5 mg Q5M PRN IV PUSH HR>100 11/22/17 00:00 11/22/17 00:55 Hydromorphone HCl (Dilaudid Pf Inj) 0.5 mg Q4H PRN IV pain >5/10 11/22/17 02:45 11/23/17 05:58 Water (Free Water) 250 ml Q6H G-TUBE 11/22/17 09:00 11/23/17 09:00 Dextrose 1,000 ml @ 50 mls/hr Q20H IV 11/22/17 07:30 11/23/17 02:22 Metoprolol Tartrate (Lopressor) 50 mg Q12HR PO 11/22/17 09:00 11/23/17 10:03 Objective Remarks GENERAL: Confused elderly female, resting in bed in no obvious distress. SKIN: Warm and dry. HEAD: Normocephalic. Xerostomia EYES: No injection or drainage. NECK: Supple, trachea midline. CARDIOVASCULAR: Regular rate and rhythm RESPIRATORY: Breath sounds equal bilaterally. No accessory muscle use. GASTROINTESTINAL: Abdomen soft, tender to palpation throughout. NG tube to low intermittent wall suction with dark contents in tubing. EXTREMITIES: No cyanosis, or edema. MUSCULOSKELETAL: Adequate muscle tone. NEUROLOGICAL: Mentation much improved from yesterday. Alert. Follows simple commands Assessment/Plan Problem List: (1) Idiopathic thrombocytopenia purpura ICD Codes: D69.3 - Immune thrombocytopenic purpura Status: Acute Plan: --platelets may be lower due to consumption and antibiotics. --had splenectomy in 2009. --was treated with Nplate in the past with good response. --per , patient's baseline is between 50-70K and she has not required treatment for ITP since spleen removal several years ago. --platelet count has been fluctuating between 40,000-70,000. --no indication to start treatment for the idiopathic thrombocytopenic purpura at this point. (2) Arterial occlusion ICD Codes: I70.90 - Unspecified atherosclerosis Plan: --started on Argatroban on 11/18, tolerated well, no evidence of bleeding despite low platelet. No evidence of recurrent clot. 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 --had embolectomy in September of this year. then started on Pradaxa, but later switched to Xarelto. --presented with abdominal pain and could have ischemic bowel (3) Abdominal pain ICD Codes: R10.9 - Unspecified abdominal pain Status: Acute Plan: --Await EGD/Colonoscopy when stable --presented with acute severe abdominal pain. --CT did not show any bowel obstruction. --Ultrasound also negative for occlusion or stenosis. 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 h/o Chronic anemia. Chronic back pain. Multiple compression fractures. Chronic obstructive pulmonary disease. Hypertension. Left popliteal arterial occlusion. Plan 1. Transfuse 1 unit platelets today 2. HOLD argatroban for now with dropping Hgb, significant increase in output from NGT concerning for possible bleed. 3. Monitor CBC. Discussed with Dr Lemus Attending Statement The exam, history, and the medical decision-making described in the above note were completed with the assistance of the mid-level provider. I reviewed and agree with the findings presented. I attest that I had a [id number] encounter with the patient on the same day, and personally performed and documented my assessment and findings in the medical record. Altered. Discussed with RN. Blood in NG tube output as well as rectal tube. Hemoccult pending. Argatroban on hold due to GIB and TCP, with suspected slow GIB and risk of spontaneous bleeding. Transfusing platelet and will restart anticoagulation. Risk vs benefits of anticoagulation in lady with suspected embolic VTE, ITP, bleeding. Problem Qualifiers (1) Abdominal pain: Qualified Codes: R10.84 - Generalized abdominal pain Cortney Mahmood Nov 23, 2017 11:22 Dedra Lyle MD Nov 23, 2017 15:37
[2017-11-23] MEDS ORDERED: diphenhydrAMINE HCL 25 MG CAP PO PRN (11:30)
[2017-11-23] MEDS ORDERED: SODIUM CHLOR 0.9% 250 ML INJ 250 ML IV ONE (11:30)
[2017-11-23] MEDS ORDERED: ACETAMINOPHEN 325 MG TAB PO PRN (11:30)
--- NOTE | 2017-11-23 11:32 | RADRPT ---
EXAM DATE/TIME: 11/23/2017 10:56 [facility] COMPARISON: CHEST SINGLE AP, November 20, 2017, 4:36. INDICATIONS : Infiltrate. MEDICAL HISTORY : Hypertension. Chronic obstructive pulmonary disease. Arthritis. Anemia. Chronic ITP. SURGICAL HISTORY : Splenectomy. section. Bone marrow bx. ENCOUNTER: Subsequent ACUITY: 1 day PAIN SCORE: Non-responsive. LOCATION: Bilateral chest FINDINGS: Small right pleural effusion is noted. Scattered bibasilar atelectasis is noted. The heart is stable. Nasogastric tube has its tip below diaphragm. CONCLUSION: Small right pleural effusion. Scattered bibasilar atelectasis is noted. Swapnil Saldaña MD on November 23, 2017 at 11:29 Board Certified Radiologist. This report was verified electronically.
[2017-11-23] MEDS: VANCOMYCIN 1,000 MG/NS 250 ML IV SCH ×2 (15:40)
[2017-11-23 17:19] LABS: BILIRUBIN, URINE NEG (NEG); BLOOD, URINE MOD (NEG); GLUCOSE,URINE NEG (NEG); KETONE, URINE NEG (NEG); NITRITE,URINE NEG (NEG); PH, URINE 5.5 (5.0-8.5); SQUAMOUS EPITHELIAL CELL URINE 2 /hpf (0-5); URINE COLOR YELLOW (YELLW/STRAW); URINE LEUKOCYTE ESTERASE SMALL (NEG); WHITE BLOOD CELL CLUMPS RARE
--- NOTE | 2017-11-23 17:39 | PD.ID.CON ---
History of Present Illness Service ID Consult Requested By Dr Crowder Reason for Consult fevers, AMS Primary Care Physician Non-Staff Diagnoses: History of Present Illness 67 yo female with ITP sp spelnectomy started to have again low grade plts presented on 11/26 wtih 1 week of adominal pain, constipation CT A/P showed diffuse ileus pt is now having diarrhea with laxatives stool is hem+ she also developped fever during hospitalisation She did not have fever prior to presentation admission blood clx are negative UA on admission was negative, but repeat one showed some pyuria, though clx are negative CXR showed Bibasilar infiltrates, left greater than right. Review of Systems Except as stated in HPI: all other systems reviewed are Neg Past Family Social History Allergies: Coded Allergies: Sulfa (Sulfonamide Antibiotics) (Verified Allergy, Severe, Hives, 11/16/17) ciprofloxacin (Verified Allergy, Severe, Hives, 11/16/17) Past Medical History 1. Chronic idiopathic thrombocytopenic purpura. 2. Chronic anemia. 3. Chronic back pain. 4. Multiple compression fractures. 5. Chronic obstructive pulmonary disease. 6. Hypertension. 7. Left popliteal arterial occlusion. Past Surgical History 1. 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 2. . 3. Right eye cataract surgery. 4. Tubal ligation. 5. Right total hip surgery. 6. Tonsillectomy. 7. Bone marrow biopsy, last one a few months ago. 8. Left lower extremity embolectomy. Active Ordered Medications Medications where reviewed in EMR Antibiotics Include: vanco cefepime flagyl Family History Mother had hypertension. Father had heart disease. No history of thromboembolic event. Social History Smoked a pack a day from age [age], quit about 2 years ago. She also quit drinking alcohol. Physical Exam Vital Signs Vital Signs Date Time Temp Pulse Resp B/P (MAP) Pulse Ox O2 Delivery O2 Flow Rate FiO2 11/23/17 16:45 99.0 92 26 123/65 95 11/23/17 15:55 98.9 92 36 139/74 95 11/23/17 12:00 82 11/23/17 12:00 98.6 82 20 111/72 (85) 94 11/23/17 11:00 100 11/23/17 10:00 97 11/23/17 09:00 95 11/23/17 08:20 96 Nasal Cannula 4.00 11/23/17 08:00 91 11/23/17 08:00 99.0 91 28 134/75 (94) 97 11/23/17 07:00 87 11/23/17 06:00 92 11/23/17 04:00 98.7 88 32 143/74 (97) 96 11/23/17 04:00 88 11/23/17 02:00 91 11/23/17 00:00 75 11/23/17 00:00 98.7 77 16 126/59 (81) 97 11/22/17 22:00 95 11/22/17 20:26 98 Nasal Cannula 4.00 11/22/17 20:00 98.9 88 26 127/82 (97) 96 11/22/17 20:00 88 11/22/17 18:00 98 Physical Exam CONSTITUTIONAL/GENERAL: This is an adequately nourished patient, in no apparent distress. TUBES/LINES/DRAINS: SKIN: No jaundice, rashes, or lesions. Skin temperature appropriate. Not diaphoretic. HEAD: Atraumatic. Normocephalic. EYES: Pupils equal and round and reactive. Extraocular motions intact. No scleral icterus. No injection or drainage. Fundi not examined. ENT: Hearing grossly normal. Nose without bleeding or purulent drainage. Throat without visible erythema, exudates, masses, or lesions. Edentulous NECK: Trachea midline. Supple, nontender. CARDIOVASCULAR: Regular rate and rhythm without murmurs, gallops, or rubs. No JVD. Peripheral pulses symmetric. RESPIRATORY/CHEST: Symmetric, unlabored respirations. Clear to auscultation. Breath sounds equal bilaterally. No wheezes, rales, or rhonchi. GASTROINTESTINAL: Abdomen soft, non-tender, nondistended. No hepato-splenomegaly , or palpable masses. No guarding. Bowel sounds present. GENITOURINARY: Without palpable bladder distension. Valencia catheter in place with clear yellow urine MUSCULOSKELETAL: Extremities without clubbing, cyanosis, or edema. No joint tenderness or effusion noted. No calf tenderness. No mottling or clubbing. LYMPHATICS: No palpable cervical or supraclavicular adenopathy. NEUROLOGICAL: Awake and alert. Oriented fully Motor and sensory grossly within normal limits. Follows commands. Clear speech. Moves all extremities. PSYCHIATRIC: No obvious anxiety/depression. no apparent hallucinations or other psychotic thought process. Laboratory Laboratory Tests Test 11/22/17 18:04 11/22/17 20:26 11/23/17 00:57 11/23/17 05:36 Hemoglobin 8.2 7.8 Hematocrit 23.2 22.8 Activated Partial Thromboplast Time 44.8 45.3 42.9 Potassium Level 3.7 3.4 White Blood Count 8.4 Red Blood Count 2.03 Mean Corpuscular Volume 112.4 Mean Corpuscular Hemoglobin 38.5 Mean Corpuscular Hemoglobin Concent 34.2 Red Cell Distribution Width 21.8 Platelet Count 17 Mean Platelet Volume 8.9 Neutrophils (%) (Auto) 68.9 Lymphocytes (%) (Auto) 19.0 Monocytes (%) (Auto) 10.5 Eosinophils (%) (Auto) 1.2 Basophils (%) (Auto) 0.4 Neutrophils # (Auto) 5.8 Lymphocytes # (Auto) 1.6 Monocytes # (Auto) 0.9 Eosinophils # (Auto) 0.1 Basophils # (Auto) 0.0 CBC Comment AUTO DIFF Differential Total Cells Counted 100 Neutrophils % (Manual) 55 Band Neutrophils % 19 Lymphocytes % 18 Monocytes % 8 Neutrophils # (Manual) 6.2 Differential Comment FINAL DIFF MANUAL Toxic Granulation 1+ Platelet Estimate RARE Platelet Morphology Comment NORMAL [place] Bodies PRESENT Keratocytes OCC Red Cell Morphology Comment Prothrombin Time 31.1 Prothromb Time International Ratio 3.1 Fibrinogen 496 Blood Urea Nitrogen 51 Creatinine 1.16 Random Glucose 155 Total Protein 5.3 Albumin 2.6 Calcium Level 7.0 Phosphorus Level 1.3 Magnesium Level 1.4 Alkaline Phosphatase 52 Aspartate Amino Transf (AST/SGOT) 48 Alanine Aminotransferase (ALT/SGPT) 13 Total Bilirubin 0.5 Sodium Level 147 Chloride Level 108 Carbon Dioxide Level 31.3 Anion Gap 8 Estimat Glomerular Filtration Rate 46 Protein Corrected Calcium 7.9 Random Vancomycin Level 19.8 Test 11/23/17 13:45 Urine Color YELLOW Urine Turbidity CLOUDY Urine pH 5.5 Urine Specific [place] 1.015 Urine Protein 30 Urine Glucose (UA) NEG Urine Ketones NEG Urine Occult Blood MOD Urine Nitrite NEG Urine Bilirubin NEG Urine Urobilinogen LESS THAN 2.0 Urine Leukocyte Esterase SMALL Urine RBC 52 Urine WBC 19 Urine WBC Clumps RARE Urine Squamous Epithelial Cells 2 Urine Granular Casts 25 Urine Yeast (Budding) MANY Microscopic Urinalysis Comment CATH-CULTURE IND Date/Time Source Procedure Growth Status 11/23/17 12:22 Blood Peripheral Aerobic Blood Culture Pending Received 11/23/17 12:22 Blood Peripheral Anaerobic Blood Culture Pending Received 11/18/17 14:25 Stool Stool Stool Occult Blood (KIM) - Final HEMOCCULT POSITIVE Complete 11/23/17 13:45 Sputum Expectorated Sputum Gram Stain Pending Received 11/23/17 13:45 Sputum Expectorated Sputum Sputum Culture Pending Received 11/23/17 13:45 Urine Clean Catch Urine Culture Pending Received Result Diagram: 11/23/17 0536 11/23/17 0536 Imaging Last Impressions Brain MRI 11/20/17 1409 Signed Impressions: Service Date/Time: October 20:54 - CONCLUSION: 1. No acute intracranial abnormality. Right-sided mastoid air cell disease. No recent infarct, mass effect or shift. Roby Brito MD Chest X-Ray 11/20/17 0600 Signed Impressions: Service Date/Time: October 04:36 - CONCLUSION: Bibasilar infiltrates, left greater than right. Víctor Bates MD Lower Extremity Ultrasound 11/20/17 0000 Signed Impressions: Service Date/Time: October 11:48 - CONCLUSION: 1. No evidence of DVT. 2. Small right Stovall's cyst. Keven Lake MD Head CT 11/20/17 0000 Signed Impressions: Service Date/Time: October 11:29 - CONCLUSION: 1. Focal decreased attenuation involving the right armin consistent with lacunar infarct or ischemic change. 2. No acute hemorrhage, midline shift or extra-axial fluid collections. 3. Small fluid level within the right sphenoid sinus. Swapnil Saldaña MD Abdomen X-Ray 11/20/17 0000 Signed Impressions: Service Date/Time: October 10:33 - CONCLUSION: No bowel obstruction or ileus. Swapnil Saldaña MD Chest CT 11/19/17 0000 Signed Impressions: Service Date/Time: Sunday, November 19, 2017 17:10 - CONCLUSION: Minimal consolidative changes as above Small pleural effusions. Luis A Castillo MD FACR Abdomen/Pelvis CT 11/19/17 0000 Signed Impressions: Service Date/Time: Sunday, November 19, 2017 17:10 - CONCLUSION: Trace ascites or subcapsular fluid around liver Prominent gallbladder Luis A Castillo MD FACR Abdomen Ultrasound 11/17/17 0000 Signed Impressions: Service Date/Time: Friday, November 17, 2017 08:01 - CONCLUSION: Negative for occlusion or significant stenosis. Luis A Castillo MD FACR Assessment and Plan Assessment and Plan Fever, low grade - ? source UTI? Admitted with ileus, now having diarrhea aftr with laxative treatment cont current abx chk stool for c.diff fu P blood and urine clx Discussed Condition With Mary Anne Ellis MD Nov 23, 2017 17:39
[2017-11-23] MEDS: CLINIMIX 4.25/5 (Cust.Renal Periph) 1000 mL- </= 42 mls/hr IV SCH ×8 (20:00)
[2017-11-23] MEDS: FAT EMULSION 20% INJ 250 ML (@10 mls/hr) IV SCH (20:00)
[2017-11-23] MEDS: ACETAMINOPHEN 325 MG TAB PO PRN (23:49)
[2017-11-24] VITALS (18 sets, daily range): BP systolic 99–144; BP diastolic 55–84; PULSE 84–102; RESP 18–36; TEMP 98.3–100.7; O2SAT 76–100
[2017-11-24] MEDS: HYDROmorphone HCL PF 2 MG/ML VIAL IV PRN ×6 (00:06→21:03)
[2017-11-24] MEDS: RESP: ALBUTEROL 2.5 MG/3 ML NEB (SCH) INH ×6 (00:15→19:25)
[2017-11-24 01:31] LABS: PHOSPHORUS 2.2 MG/DL (2.5-4.9)
[2017-11-24] MEDS: FREE WATER G-TUBE SCH ×2 (02:29→08:25)
[2017-11-24] MEDS: SODIUM PHOSPHATE INJ 30 MMOL in SODIUM CHLOR 0.9% 250 ML INJ 240 ML IV PRN (02:29)
[2017-11-24 03:21] LABS: AUTOMATED NEUTROPHIL # 5.2 TH/MM3 (1.8-7.7); BASOPHIL % 0.4 % (0.0-2.0); EOSINOPHIL # 0.1 TH/MM3 (0-0.4); EOSINOPHIL % 0.7 % (0.0-4.0); HEMATOCRIT 19.6 % (35.0-46.0); LYMPH % 21.8 % (9.0-44.0); LYMPHOCYTE # 1.7 TH/MM3 (1.0-4.8); MEAN CELL VOLUME 112.6 FL (80.0-100.0); MEAN CORPUSCULAR HEMOGLOBIN 38.4 PG (27.0-34.0); MEAN CORPUSCULAR HGB CONC 34.1 % (32.0-36.0); MEAN PLATELET VOLUME 7.6 FL (7.0-11.0); MONO % 10.2 % (0.0-8.0); MONOCYTE # 0.8 TH/MM3 (0-0.9); NEUT % 66.9 % (16.0-70.0); PLATELET COUNT 109 TH/MM3 (150-450); RED BLOOD COUNT 1.74 MIL/MM3 (4.00-5.30); RED CELL DISTRIBUTION WIDTH 21.8 % (11.6-17.2); WHITE BLOOD COUNT 7.8 TH/MM3 (4.0-11.0)
[2017-11-24 03:39] LABS: ALBUMIN 2.5 GM/DL (3.4-5.0); BICARBONATE 32.2 MEQ/L (21.0-32.0); CALCIUM 6.7 MG/DL (8.5-10.1); CALCIUM-PROTEIN CORRECTED 7.7 MG/DL (8.5-10.1); CREATININE 1.05 MG/DL (0.50-1.00); MAGNESIUM 1.7 MG/DL (1.5-2.5); PHOSPHORUS 1.9 MG/DL (2.5-4.9); TOTAL BILIRUBIN ADULT 0.5 MG/DL (0.2-1.0); TOTAL PROTEIN 5.1 GM/DL (6.4-8.2)
[2017-11-24] MEDS: metroNIDAZOLE 500 MG INJ 100 ML IV SCH ×3 (03:53→21:36)
[2017-11-24 03:57] LABS: HEMOGLOBIN 6.7 GM/DL (11.6-15.3)
[2017-11-24] MEDS: CHLORHEXIDINE GLUCONATE 2 % 1 PACK (2 CLOTHS) TOP SCH (04:00)
[2017-11-24 04:18] LABS: STOMATOCYTES 2+ (NORMAL)
[2017-11-24] MEDS ORDERED: SODIUM CHLOR 0.9% 250 ML INJ 250 ML IV ONE (04:30)
[2017-11-24] MEDS: POTASSIUM CHLOR 20 MEQ PREMIX 100 ML IV PRN ×3 (05:19→13:14)
[2017-11-24] MEDS: DILTIAZEM HCL 60 MG TAB PO SCH ×4 (05:52→23:25)
--- NOTE | 2017-11-24 07:46 | HHI.PR ---
Objective Vital Signs Date Time Temp Pulse Resp B/P (MAP) Pulse Ox O2 Delivery O2 Flow Rate FiO2 11/24/17 06:00 88 11/24/17 04:04 94 Venturi Mask 6.00 50 11/24/17 04:00 87 11/24/17 04:00 98.3 87 36 115/63 (80) 76 11/24/17 02:00 84 11/24/17 00:00 88 11/24/17 00:00 100.7 88 28 144/84 (104) 97 11/23/17 22:00 86 11/23/17 20:00 100 11/23/17 20:00 98.5 100 29 122/94 (103) 95 11/23/17 19:28 94 Nasal Cannula 6.00 11/23/17 18:00 97 11/23/17 17:00 96 11/23/17 16:45 99.0 92 26 123/65 95 11/23/17 16:00 92 11/23/17 16:00 99.0 92 33 133/100 (111) 94 11/23/17 15:55 98.9 92 36 139/74 95 11/23/17 15:00 101 11/23/17 14:00 96 11/23/17 13:00 88 11/23/17 12:00 82 11/23/17 12:00 98.6 82 20 111/72 (85) 94 11/23/17 11:00 100 11/23/17 10:00 97 11/23/17 09:00 95 11/23/17 08:20 96 Nasal Cannula 4.00 11/23/17 08:00 91 11/23/17 08:00 99.0 91 28 134/75 (94) 97 I/O 11/23/17 11/23/17 11/23/17 11/24/17 11/24/17 11/24/17 07:00 15:00 23:00 07:00 15:00 23:00 Intake Total 1600 ml 2912.1719 ml 100 ml Output Total 1200 ml 1200 ml 850 ml Balance 400 ml 1712.1719 ml -750 ml Intake Oral 0 ml IV Total 1100 ml 2392.1719 ml 100 ml Platelets 305 ml Blood Product IV Normal Saline Flush 35 ml Other 500 ml 180 ml Output Urine Total 800 ml 900 ml 750 ml Stool Total 0 ml Gastric Drainage Total 400 ml 300 ml 100 ml # Bowel Movements 3 Result Diagram: 11/24/170 11/24/17 0250 Objective Remarks awake alert vff face sym moves all well speech clerer and following commands and holding nl conversations Assessment and Plan Assessment and Plan imp mri nl eeg metabolic nh3 46 i suspect all metabolic and if we gave her narcan and mazicon she would awaken well should improve as med condition does 11/24/17 looks much better today still low calcium plts up hb down much improved met Rojelio Escoto MD Nov 24, 2017 07:46
[2017-11-24] MEDS: RESP: BUDESONIDE 0.25 MG/2 ML NEB NEB SCH ×2 (08:03→19:25)
[2017-11-24] MEDS: ACETAMINOPHEN 325 MG TAB PO PRN (08:24)
[2017-11-24] MEDS: RIFAXIMIN 550 MG TAB PO SCH ×2 (08:24→20:46)
[2017-11-24] MEDS: FAMOTIDINE 20 MG/2 ML VIAL IV PUSH SCH (08:24)
[2017-11-24] MEDS: DOCUSATE SODIUM 50 MG/SENNA 8.6 MG TAB PO SCH ×2 (08:25→20:46)
[2017-11-24] MEDS: CEFEPIME INJ 2,000 MG in SODIUM CHLORIDE 0.9% INJ 100 ML IV SCH ×2 (08:25→20:46)
[2017-11-24] MEDS: LACTULOSE SYRUP 20 GM/30 ML CUP PO SCH ×3 (08:25→17:18)
[2017-11-24] MEDS: SODIUM CHLORIDE 0.9% FLUSH 10 ML FLUSH IV FLUSH SCH ×2 (08:25→20:46)
[2017-11-24] MEDS: METOPROLOL TARTRATE 50 MG TAB PO SCH ×2 (08:25→20:46)
[2017-11-24] MEDS: TIOTROPIUM BROMIDE 18 MCG INH INH SCH (08:26)
--- NOTE | 2017-11-24 11:02 | PD.ONC.PN ---
Subjective Subjective Remarks T-max 100.7 overnight Patient currently getting packed red blood cell transfusion Patient complaining of shortness of breath Has some mild abdominal pain Objective Data Date Time Temp Pulse Resp B/P (MAP) Pulse Ox O2 Delivery O2 Flow Rate FiO2 11/24/17 09:20 99.9 93 18 110/55 97 11/24/17 09:14 20 11/24/17 09:14 20 11/24/17 09:05 99.0 94 20 114/58 97 11/24/17 08:49 100.0 92 20 131/60 100 11/24/17 08:04 95 Venturi Mask 50 11/24/17 06:00 88 11/24/17 04:04 94 Venturi Mask 6.00 50 11/24/17 04:00 87 11/24/17 04:00 98.3 87 36 115/63 (80) 76 11/24/17 02:00 84 11/24/17 00:00 88 11/24/17 00:00 100.7 88 28 144/84 (104) 97 11/23/17 22:00 86 11/23/17 20:00 100 11/23/17 20:00 98.5 100 29 122/94 (103) 95 11/23/17 19:28 94 Nasal Cannula 6.00 11/23/17 18:00 97 11/23/17 17:00 96 11/23/17 16:45 99.0 92 26 123/65 95 11/23/17 16:00 92 11/23/17 16:00 99.0 92 33 133/100 (111) 94 11/23/17 15:55 98.9 92 36 139/74 95 11/23/17 15:00 101 11/23/17 14:00 96 11/23/17 13:00 88 11/23/17 12:00 82 11/23/17 12:00 98.6 82 20 111/72 (85) 94 11/23/17 11:00 100 11/24/17 11/24/17 11/24/17 07:00 15:00 23:00 Intake Total 100 ml 25 ml Output Total 850 ml Balance -750 ml 25 ml Result Diagram: 11/24/17 0250 11/24/17 0250 Laboratory Results Laboratory Tests Test 11/23/17 13:45 3/25/18 20:38 11/24/17 02:50 Urine Color YELLOW Urine Turbidity CLOUDY Urine pH 5.5 Urine Specific [place] 1.015 Urine Protein 30 mg/dL Urine Glucose (UA) NEG mg/dL Urine Ketones NEG mg/dL Urine Occult Blood MOD Urine Nitrite NEG Urine Bilirubin NEG Urine Urobilinogen LESS THAN 2.0 MG/DL Urine Leukocyte Esterase SMALL Urine RBC 52 /hpf Urine WBC 19 /hpf Urine WBC Clumps RARE Urine Squamous Epithelial Cells 2 /hpf Urine Granular Casts 25 /lpf Urine Yeast (Budding) MANY Microscopic Urinalysis Comment CATH-CULTURE IND Stool C. difficile Toxin (PCR) NEGATIVE Stl C. difficile Toxin Epiderm 027 PRESUMPTIVE NEGATIVE Platelet Count 110 TH/MM3 109 TH/MM3 Potassium Level 4.5 MEQ/L 3.1 MEQ/L Phosphorus Level 2.2 MG/DL 1.9 MG/DL Iron Level 39 MCG/DL Ferritin 512 NG/ML Ammonia 41 MCMOL/L 25-Hydroxy Vitamin D Total 12.3 ng/ML White Blood Count 7.8 TH/MM3 Red Blood Count 1.74 MIL/MM3 Hemoglobin 6.7 GM/DL Hematocrit 19.6 % Mean Corpuscular Volume 112.6 FL Mean Corpuscular Hemoglobin 38.4 PG Mean Corpuscular Hemoglobin Concent 34.1 % Red Cell Distribution Width 21.8 % Mean Platelet Volume 7.6 FL Neutrophils (%) (Auto) 66.9 % Lymphocytes (%) (Auto) 21.8 % Monocytes (%) (Auto) 10.2 % Eosinophils (%) (Auto) 0.7 % Basophils (%) (Auto) 0.4 % Neutrophils # (Auto) 5.2 TH/MM3 Lymphocytes # (Auto) 1.7 TH/MM3 Monocytes # (Auto) 0.8 TH/MM3 Eosinophils # (Auto) 0.1 TH/MM3 Basophils # (Auto) 0.0 TH/MM3 CBC Comment AUTO DIFF Differential Comment AUTO DIFF CONFIRMED Platelet Estimate LOW Platelet Morphology Comment NORMAL Stomatocytes 2+ Blood Urea Nitrogen 44 MG/DL Creatinine 1.05 MG/DL Random Glucose 141 MG/DL Total Protein 5.1 GM/DL Albumin 2.5 GM/DL Calcium Level 6.7 MG/DL Magnesium Level 1.7 MG/DL Alkaline Phosphatase 49 U/L Aspartate Amino Transf (AST/SGOT) 39 U/L Alanine Aminotransferase (ALT/SGPT) 13 U/L Total Bilirubin 0.5 MG/DL Sodium Level 144 MEQ/L Chloride Level 106 MEQ/L Carbon Dioxide Level 32.2 MEQ/L Anion Gap 6 MEQ/L Estimat Glomerular Filtration Rate 52 ML/MIN Protein Corrected Calcium 7.7 MG/DL Culture Results Microbiology Date/Time Source Procedure Growth Status 11/23/17 12:22 Blood Peripheral Aerobic Blood Culture Pending Received 11/23/17 12:22 Blood Peripheral Anaerobic Blood Culture Pending Received 11/23/17 12:10 Blood Peripheral Aerobic Blood Culture Pending Received 11/23/17 12:10 Blood Peripheral Anaerobic Blood Culture Pending Received 11/23/17 13:45 Sputum Expectorated Sputum Gram Stain - Final Resulted 11/23/17 13:45 Sputum Expectorated Sputum Sputum Culture Pending Resulted 11/23/17 13:45 Urine Clean Catch Urine Culture Pending Received Administered Medications Medications (Trade) Dose Ordered Sig/[place] Route PRN Reason Start Time Stop Time Status Last Admin Dose Admin Sodium Chloride (NS Flush) 2 ml UNSCH PRN IV FLUSH FLUSH AFTER USING IV ACCESS 11/17/17 06:45 11/17/17 08:29 Sodium Chloride (NS Flush) 2 ml BID IV FLUSH 11/17/17 09:00 11/24/17 08:25 Acetaminophen (Tylenol) 650 mg Q6H PRN PO PAIN 1-10 AND/OR FEVER >101F 11/17/17 06:45 11/24/17 08:24 Albuterol/ Ipratropium (Duoneb Neb) 1 ampule Q4HR NEB PRN INH WHEEZING 11/17/17 06:45 11/19/17 12:31 Miscellaneous Information 1 Q361D XX 11/17/17 06:45 11/17/17 06:45 Chlorhexidine Gluconate (Chlorhexidine 2% Cloth) Taper DAILY@04 TOP 11/18/17 04:00 11/14/18 03:59 11/24/17 04:00 Senna/Docusate Sodium (Rita-Colace) 1 tab BID PO 11/17/17 09:00 11/23/17 20:01 Sennosides (Senokot) 17.2 mg Q12H PRN PO Moderate constipation 11/17/17 06:45 11/17/17 09:11 Lactulose (Lactulose Liq) 30 ml DAILY PRN PO SEVERE CONSITIPATION 11/17/17 06:45 11/17/17 09:11 Albuterol Sulfate (Albuterol Neb) 2.5 mg Q4HR NEB PRN NEB SHORTNESS OF BREATH 11/17/17 07:45 11/21/17 01:45 Budesonide (Pulmicort Respule Neb) 0.25 mg DAILY NEB NEB 11/17/17 08:00 11/24/17 08:03 Tiotropium Nahma (Spiriva Inh) 18 mcg DAILY INH 11/17/17 09:00 11/24/17 08:26 Cefepime HCl 2000 mg/Sodium Chloride 100 ml @ 200 mls/hr Q24H IV 11/18/17 09:00 11/24/17 08:25 Metronidazole 100 ml @ 100 mls/hr Q8H IV 11/17/17 20:00 11/24/17 03:53 Argatroban 250 mg/ Sodium Chloride 252.5 ml @ 1.92 mls/hr TITRATE PRN IV aPTT < 50 11/18/17 12:45 Future Hold 11/22/17 15:20 Famotidine (Pepcid Inj) 10 mg Q12HR IV PUSH 11/18/17 21:00 11/24/17 08:24 Sodium Chloride 5.5 meq/Sodium Acetate 29.5 meq/ Potassium Chloride 20 meq/ Magnesium Chloride 5 meq/ Calcium Chloride 4.5 meq/ Multivitamins 10 ml/Folic Acid 1 mg/Amino Acids/ Dextrose 1,042.1719 ml @ 42 mls/hr Q24H IV 11/19/17 20:00 11/23/17 20:00 Fat Emulsion Intravenous 250 ml @ 10 mls/hr Q24H IV 11/19/17 20:00 11/23/17 20:00 Diltiazem HCl (Cardizem) 60 mg Q6HR PO 11/20/17 12:00 11/24/17 05:52 Rifaximin (Xifaxan) 550 mg BID PO 11/20/17 21:00 11/24/17 08:24 Albuterol Sulfate (Albuterol Neb) 2.5 mg Q4HR NEB INH 11/21/17 04:00 11/24/17 08:03 Lactulose (Lactulose Liq) 15 ml TID PO 11/21/17 09:00 11/23/17 17:38 Potassium Chloride 100 ml @ 50 mls/hr Q2H PRN IV For Potassium 2.8 - 3.2 mEq/L 11/21/17 13:30 11/24/17 09:17 Potassium Bicarb/ Potassium Chloride (K-Lyte Cl Eff) 50 meq UNSCH PRN PO For Potassium 3.3 - 3.5 mEq/L 11/21/17 13:30 11/21/17 13:47 Potassium Chloride 100 ml @ 50 mls/hr Q2H PRN IV For Potassium 3.3 - 3.5 mEq/L 11/21/17 13:30 11/22/17 10:08 Magnesium Sulfate 2 gm/Sodium Chloride 100 ml @ 50 mls/hr UNSCH PRN IV For Magnesium 1.2 - 1.6 mg/dL 11/21/17 13:30 11/22/17 05:09 Sodium Phosphate 30 mmol/Sodium Chloride 250 ml @ 42 mls/hr UNSCH PRN IV For Phosphorus < 2.5 mg/dL 11/21/17 13:30 11/24/17 02:29 Potassium Phosphate 30 mmol/ Sodium Chloride 260 ml @ 42 mls/hr UNSCH PRN IV SEE LABEL COMMENTS 11/21/17 13:30 11/23/17 10:26 Hydralazine HCl (Apresoline Inj) 10 mg Q4H PRN IV PUSH SYS BP GREATER THAN 160 MMHG 11/21/17 16:45 11/22/17 02:07 Metoprolol Tartrate (Lopressor Inj) 5 mg Q5M PRN IV PUSH HR>100 11/22/17 00:00 11/22/17 00:55 Hydromorphone HCl (Dilaudid Pf Inj) 0.5 mg Q4H PRN IV pain >5/10 11/22/17 02:45 11/24/17 08:31 Water (Free Water) 250 ml Q6H G-TUBE 11/22/17 09:00 11/24/17 02:29 Dextrose 1,000 ml @ 50 mls/hr Q20H IV 11/22/17 07:30 11/23/17 22:28 Metoprolol Tartrate (Lopressor) 50 mg Q12HR PO 11/22/17 09:00 11/23/17 20:01 Vancomycin HCl 1000 mg/Sodium Chloride 250 ml @ 250 mls/hr Q24H IV 11/23/17 15:00 11/23/17 15:40 Sodium Chloride 250 ml @ 15 mls/hr ONCE ONCE IV 11/24/17 04:30 11/24/17 21:09 11/24/17 04:30 Objective Remarks GENERAL: Confused but alert and pleasant elderly female sitting up in bed in no obvious distress. SKIN: Warm and dry. HEAD: Normocephalic. Xerostomia EYES: No injection or drainage. NECK: Supple, trachea midline. CARDIOVASCULAR: Regular rate and rhythm RESPIRATORY: Breath sounds equal bilaterally. No accessory muscle use. GASTROINTESTINAL: Abdomen soft, tender to palpation throughout. NG tube to low intermittent wall suction with dark maroon contents in tubing. EXTREMITIES: No cyanosis. Scattered bruises to upper and lower extremities MUSCULOSKELETAL: Adequate muscle tone. NEUROLOGICAL: Alert. Follows simple commands Assessment/Plan Problem List: (1) Idiopathic thrombocytopenia purpura ICD Codes: D69.3 - Immune thrombocytopenic purpura Status: Acute Plan: --platelets may be lower due to consumption and antibiotics. --had splenectomy in 2009. --was treated with Nplate in the past with good response. --per , patient's baseline is between 50-70K and she has not required treatment for ITP since spleen removal several years ago. --platelet count has been fluctuating between 40,000-70,000. --no indication to start treatment for the idiopathic thrombocytopenic purpura at this point. (2) Arterial occlusion ICD Codes: I70.90 - Unspecified atherosclerosis Plan: --started on Argatroban on 11/18, tolerated well, no evidence of bleeding despite low platelet. No evidence of recurrent clot. 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 --had embolectomy in September of this year. then started on Pradaxa, but later switched to Xarelto. --presented with abdominal pain and could have ischemic bowel 11/23: Argatroban placed on hold due to possible GI bleed (3) Abdominal pain ICD Codes: R10.9 - Unspecified abdominal pain Status: Acute Plan: --Await EGD/Colonoscopy when stable --presented with acute severe abdominal pain. --CT did not show any bowel obstruction. --Ultrasound also negative for occlusion or stenosis. 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 h/o Chronic anemia. Chronic back pain. Multiple compression fractures. Chronic obstructive pulmonary disease. Hypertension. Left popliteal arterial occlusion. Plan 1. Recheck CBC at 12 PM today after blood transfusion 2. Keep argatroban on hold for now 3. Appreciate GI input Attending Statement The exam, history, and the medical decision-making described in the above note were completed with the assistance of the mid-level provider. I reviewed and agree with the findings presented. I attest that I had a [id number] encounter with the patient on the same day, and personally performed and documented my assessment and findings in the medical record. More alert but still confused. Abdominal pain improved. NGT still has maroon colored discharge. No obvious rectal bleeding. Hgb trended down and is receiving PRBC transfusion. Platelet stable since transfusion. Continue to hold argatroban and monitor CBC closely. No obvious recurrent clots. Await GI w/u. Problem Qualifiers (1) Abdominal pain: Qualified Codes: R10.84 - Generalized abdominal pain Cortney Mahmood Nov 24, 2017 11:02 Braden Luong MD Nov 24, 2017 16:24
--- NOTE | 2017-11-24 13:04 | HHI.GIFU ---
Subjective Remarks Coffee-ground emesis changing to dark red drainage via NG tube Rectal [place] dark stools Going for small bowel follow-through today Fever high today 100.7 (Bertha Armstrong) Objective Vitals I&O Vital Signs Date Time Temp Pulse Resp B/P (MAP) Pulse Ox O2 Delivery O2 Flow Rate FiO2 11/24/17 12:00 99.0 97 20 123/66 (85) 97 11/24/17 12:00 97 11/24/17 10:00 94 11/24/17 09:20 99.9 93 18 110/55 97 11/24/17 09:14 20 11/24/17 09:14 20 11/24/17 09:05 99.0 94 20 114/58 97 11/24/17 08:49 100.0 92 20 131/60 100 11/24/17 08:04 95 Venturi Mask 50 11/24/17 08:00 96 11/24/17 08:00 100.3 97 20 99/65 (76) 92 11/24/17 06:00 88 11/24/17 04:04 94 Venturi Mask 6.00 50 11/24/17 04:00 87 11/24/17 04:00 98.3 87 36 115/63 (80) 76 11/24/17 02:00 84 11/24/17 00:00 88 11/24/17 00:00 100.7 88 28 144/84 (104) 97 11/23/17 22:00 86 11/23/17 20:00 100 11/23/17 20:00 98.5 100 29 122/94 (103) 95 11/23/17 19:28 94 Nasal Cannula 6.00 11/23/17 18:00 97 11/23/17 17:00 96 11/23/17 16:45 99.0 92 26 123/65 95 11/23/17 16:00 92 11/23/17 16:00 99.0 92 33 133/100 (111) 94 11/23/17 15:55 98.9 92 36 139/74 95 11/23/17 15:00 101 11/23/17 14:00 96 I/O 3/25/18 3/25/18 3/25/18 3/26/18 3/26/18 3/26/18 07:00 15:00 23:00 07:00 15:00 23:00 Intake Total 1600 ml 2912.1719 ml 100 ml 425 ml Output Total 1200 ml 1200 ml 850 ml Balance 400 ml 1712.1719 ml -750 ml 425 ml Intake Oral 0 ml IV Total 1100 ml 2392.1719 ml 100 ml Packed Cells 400 ml Platelets 305 ml Blood Product IV Normal Saline Flush 35 ml 25 ml Other 500 ml 180 ml Output Urine Total 800 ml 900 ml 750 ml Stool Total 0 ml Gastric Drainage Total 400 ml 300 ml 100 ml # Bowel Movements 3 Laboratory Laboratory Tests Test 11/23/17 13:45 11/23/17 20:38 11/24/17 02:50 Urine Color YELLOW Urine Turbidity CLOUDY Urine pH 5.5 Urine Specific [place] 1.015 Urine Protein 30 Urine Glucose (UA) NEG Urine Ketones NEG Urine Occult Blood MOD Urine Nitrite NEG Urine Bilirubin NEG Urine Urobilinogen LESS THAN 2.0 Urine Leukocyte Esterase SMALL Urine RBC 52 Urine WBC 19 Urine WBC Clumps RARE Urine Squamous Epithelial Cells 2 Urine Granular Casts 25 Urine Yeast (Budding) MANY Microscopic Urinalysis Comment CATH-CULTURE IND Stool C. difficile Toxin (PCR) NEGATIVE Stl C. difficile Toxin Epiderm 027 PRESUMPTIVE NEGATIVE Platelet Count 110 109 Potassium Level 4.5 3.1 Phosphorus Level 2.2 1.9 Iron Level 39 Ferritin 512 Ammonia 41 25-Hydroxy Vitamin D Total 12.3 Anti-Nuclear Antibody Screen NEG White Blood Count 7.8 Red Blood Count 1.74 Hemoglobin 6.7 Hematocrit 19.6 Mean Corpuscular Volume 112.6 Mean Corpuscular Hemoglobin 38.4 Mean Corpuscular Hemoglobin Concent 34.1 Red Cell Distribution Width 21.8 Mean Platelet Volume 7.6 Neutrophils (%) (Auto) 66.9 Lymphocytes (%) (Auto) 21.8 Monocytes (%) (Auto) 10.2 Eosinophils (%) (Auto) 0.7 Basophils (%) (Auto) 0.4 Neutrophils # (Auto) 5.2 Lymphocytes # (Auto) 1.7 Monocytes # (Auto) 0.8 Eosinophils # (Auto) 0.1 Basophils # (Auto) 0.0 CBC Comment AUTO DIFF Differential Comment AUTO DIFF CONFIRMED Platelet Estimate LOW Platelet Morphology Comment NORMAL Stomatocytes 2+ Blood Urea Nitrogen 44 Creatinine 1.05 Random Glucose 141 Total Protein 5.1 Albumin 2.5 Calcium Level 6.7 Magnesium Level 1.7 Alkaline Phosphatase 49 Aspartate Amino Transf (AST/SGOT) 39 Alanine Aminotransferase (ALT/SGPT) 13 Total Bilirubin 0.5 Sodium Level 144 Chloride Level 106 Carbon Dioxide Level 32.2 Anion Gap 6 Estimat Glomerular Filtration Rate 52 Protein Corrected Calcium 7.7 Date/Time Source Procedure Growth Status 11/23/17 12:22 Blood Peripheral Aerobic Blood Culture - Preliminary NO GROWTH IN 1 DAY Resulted 11/23/17 12:22 Blood Peripheral Anaerobic Blood Culture - Preliminary NO GROWTH IN 1 DAY Resulted 11/18/17 14:25 Stool Stool Stool Occult Blood (KIM) - Final HEMOCCULT POSITIVE Complete 11/23/17 13:45 Sputum Expectorated Sputum Gram Stain - Final Resulted 11/23/17 13:45 Sputum Expectorated Sputum Sputum Culture Pending Resulted 11/23/17 13:45 Urine Clean Catch Urine Culture Pending Received Imaging Last Impressions Chest X-Ray 11/23/17 0000 Signed Impressions: Service Date/Time: Thursday, November 23, 2017 10:56 - CONCLUSION: Small right pleural effusion. Scattered bibasilar atelectasis is noted. Swapnil Saldaña MD Abdomen X-Ray 11/23/17 0000 Signed Impressions: Service Date/Time: Thursday, November 23, 2017 06:14 - CONCLUSION: Nonobstructive bowel gas pattern without significant change. Ousmane Aguilar MD Brain MRI 11/20/17 1409 Signed Impressions: Service Date/Time: October 20:54 - CONCLUSION: 1. No acute intracranial abnormality. Right-sided mastoid air cell disease. No recent infarct, mass effect or shift. Roby Brito MD Lower Extremity Ultrasound 11/20/17 0000 Signed Impressions: Service Date/Time: October 11:48 - CONCLUSION: 1. No evidence of DVT. 2. Small right Stovall's cyst. Keven Lake MD Head CT 11/20/17 0000 Signed Impressions: Service Date/Time: October 11:29 - CONCLUSION: 1. Focal decreased attenuation involving the right armin consistent with lacunar infarct or ischemic change. 2. No acute hemorrhage, midline shift or extra-axial fluid collections. 3. Small fluid level within the right sphenoid sinus. Swapnil Saldaña MD Chest CT 11/19/17 0000 Signed Impressions: Service Date/Time: Sunday, November 19, 2017 17:10 - CONCLUSION: Minimal consolidative changes as above Small pleural effusions. Luis A Castillo MD FACR Abdomen/Pelvis CT 11/19/17 0000 Signed Impressions: Service Date/Time: Sunday, November 19, 2017 17:10 - CONCLUSION: Trace ascites or subcapsular fluid around liver Prominent gallbladder Luis A Castillo MD FACR Abdomen Ultrasound 11/17/17 0000 Signed Impressions: Service Date/Time: Friday, November 17, 2017 08:01 - CONCLUSION: Negative for occlusion or significant stenosis. Luis A Castillo MD FACR Physical Exam HEENT: Normocephalic; atraumatic CHEST: Low volumes but no acute shortness of breath, no audible wheezing or rhonchi CARDIAC: RR ABDOMEN: Soft, mild generalized distention, bowel sounds active. NGT red bloody tinged now to LIWS dark liquid brown stool in collection bag SKIN: Pale; no rash; no jaundice. HAND RIGGER: Awake (Bertha Armstrong) Assessment and Plan Plan ASSESSMENT - Abdominal pain and distention- KUB (11/17) --> No signs of obstruction, ileus or perforation. US abd SMA/Celiac --> Negative for occlusion or significant stenosis. - Anemia- macrocytic- H/H dropped to 6.7/20.2 yesterday- received one unit PRBCs- currently 05/26.9. No signs of GIB via NGT or rectal output. 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 Going down for CT abdomen/pelvis now. (11/21) Pt increasingly confused, nonverbal during exam. MRI brain done to evaluate change in mental status which showed no acute findings. Ammonia-46 possible cause of encephalopathy. Pt now on Xifaxan and Lactulose. (11/23) Remains confused and agitated. Ammonia now WNL. Unclear cause of metabolic encephalopathy. Anemia and thrombocytopenia. Drop in H/H and platelets now 17. Not stable for endoscopic procedures. SBFT ordered, pt to agitated for procedure. wanting to hold off on this at this time Liver DIAZ pending, serum mercury, Vit D A C, serum copper Reexamined at 11:28 Pt is now alert and oriented, complaining of pain but can not localize it. Per RN reports of dark red blood through NGT. Palliative care consult pending now that pt is alert and oriented and able to participate in health care decisions. Remains at very high risk for procedures and her wishes should be addressed, likely to require intubation for endoscopic procedures. Platelet replacement per hematology. 11/24/17 NGT drainage has changed from dark possible coffee ground to red medium bloody secretions hemoglobin continues to decline. Currently 6.7 feeding 1 unit packed RBCs We will hold on small bowel follow-through until patient's hemoglobin is more stable. Family in, patient awake, but still having some mild AMS PLAN - EGD today in patient rm. - Monitor platelet count, HGB, any active bleeding. - SBFT hold for today - Liver DIAZ and labs listed above pending - Xifaxan - Lactulose - NGT to LIWS, maintain NPO for now - Rectal tube to collection bag - Monitor H/H, platelets - Transfuse as needed - TPN - Pepcid - Further recommendations based on clinical course Pt has been seen and examined by myself and Dr. Sierra. and this note is written on his behalf (Bertha Armstrong) Physician Comments Patient was noted to have elevated PT/INR Therefore we will recheck and plan for the EGD tomorrow Patient will receive fresh frozen plasma to help correct coagulopathy (Abundio Sierra MD) Bertha Armstrong Nov 24, 2017 13:04 Abundio Sierra MD Nov 24, 2017 16:20
--- NOTE | 2017-11-24 13:28 | HHI.CCPN ---
Subjective Remarks/Hospital Course This is a 67-year-old female that presented to [facility], by private transportation for evaluation of severe abdominal pain. Patient states of the past week she has had constipation so last evening took laxatives ( Senokot) x 3 days, and then today had large bowel movement multiple times with development of severe lower abdominal pain. Patient had subsequently noted some abdominal distention. Patient states her abdomen is exquisitely tender with any movement. Patient also complains of some epigastric pain. 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 No report of hematemesis or coffee-ground emesis. Patient states after bowel movements no report of melena or hematochezia. Patient rates her abdominal pain 10/10 in intensity, without relief of narcotics. The patient was transferred to [facility] , critical care medicine was consulted. Subjective: 11/18: Overnight the patient was known to be oliguric, the patient received approximately 5 L of normal saline , and 500 cc of 5% albumin during the night. NG tube output approximately 700 cc since admission. The patient was noted to be mildly confused this a.m. and progressively worsened. O2 saturation was 100% ,stat ABGs performed, metabolic acidosis with a bicarbonate level of 16. Patient received 2 A of sodium bicarbonate and bicarbonate infusion was initiated. Patient also was noted to be hypocalcemic this a.m. and received 2 g of calcium gluconate. The patient was started on Argatroban infusion after discussion with Dr. Howell, plan for endoscopy tomorrow . The patient was previously on Xarelto for DVT prophylaxis.Repeat labs performed early this afternoon revealed hemoglobin of 6.7, 1 unit of PRBC being transfused. She required restraints, for patient safety. Repeat labs pending this evening posttransfusion. 11/19: Afebrile. Last evening the patient became more confused metabolic acidosis, placed on sodium bicarbonate infusion, now corrected. Patient alert, following commands. Sodium bicarbonate infusion discontinued. Patient noted to be severely anemic with hemoglobin of 6.2 received 1 unit of PRBCs, last hemoglobin 9.4, stable. Continued serial monitoring of H&H labs pending this a.m.. Patient noted to have improvement in urine output overnight. EGD placed on hold. 11/20 No events overnight. Afebrile, on 3L oxygen. 11/21 Patient is on 2L oxygen. MRI brain last night showed no acute abnormalities. Afebrile. Lethargic 11/22 Patient is on 3L oxygen. Renal function is improving with Cr: 1.47 from 1.77. On Argatroban drip. 11/23 No events overnight, On Argatroban drip. Cr: 1.16 from 1.47. 11/24 Patient is more awake, off Argatroban drip, T:100.3. 1u PRBC ordered for Hgb 6.7 this morning. Objective Vital Signs Date Time Temp Pulse Resp B/P (MAP) Pulse Ox O2 Delivery O2 Flow Rate FiO2 11/24/17 12:00 99.0 97 20 123/66 (85) 97 11/24/17 08:04 Venturi Mask 50 11/24/17 04:04 6.00 Intake and Output 11/24/17 11/24/17 11/25/17 08:00 16:00 00:00 Intake Total 100 ml 425 ml Output Total 850 ml Balance -750 ml 425 ml Result Diagram: 11/24/17 0250 11/24/17 0250 Other Results Laboratory Tests Test 11/23/17 13:45 11/23/17 20:38 11/24/17 02:50 Urine Color YELLOW Urine Turbidity CLOUDY Urine pH 5.5 Urine Specific [place] 1.015 Urine Protein 30 mg/dL Urine Glucose (UA) NEG mg/dL Urine Ketones NEG mg/dL Urine Occult Blood MOD Urine Nitrite NEG Urine Bilirubin NEG Urine Urobilinogen LESS THAN 2.0 MG/DL Urine Leukocyte Esterase SMALL Urine RBC 52 /hpf Urine WBC 19 /hpf Urine WBC Clumps RARE Urine Squamous Epithelial Cells 2 /hpf Urine Granular Casts 25 /lpf Urine Yeast (Budding) MANY Microscopic Urinalysis Comment CATH-CULTURE IND Stool C. difficile Toxin (PCR) NEGATIVE Stl C. difficile Toxin Epiderm 027 PRESUMPTIVE NEGATIVE Platelet Count 110 TH/MM3 109 TH/MM3 Potassium Level 4.5 MEQ/L 3.1 MEQ/L Phosphorus Level 2.2 MG/DL 1.9 MG/DL Iron Level 39 MCG/DL Ferritin 512 NG/ML Ammonia 41 MCMOL/L 25-Hydroxy Vitamin D Total 12.3 ng/ML Anti-Nuclear Antibody Screen NEG White Blood Count 7.8 TH/MM3 Red Blood Count 1.74 MIL/MM3 Hemoglobin 6.7 GM/DL Hematocrit 19.6 % Mean Corpuscular Volume 112.6 FL Mean Corpuscular Hemoglobin 38.4 PG Mean Corpuscular Hemoglobin Concent 34.1 % Red Cell Distribution Width 21.8 % Mean Platelet Volume 7.6 FL Neutrophils (%) (Auto) 66.9 % Lymphocytes (%) (Auto) 21.8 % Monocytes (%) (Auto) 10.2 % Eosinophils (%) (Auto) 0.7 % Basophils (%) (Auto) 0.4 % Neutrophils # (Auto) 5.2 TH/MM3 Lymphocytes # (Auto) 1.7 TH/MM3 Monocytes # (Auto) 0.8 TH/MM3 Eosinophils # (Auto) 0.1 TH/MM3 Basophils # (Auto) 0.0 TH/MM3 CBC Comment AUTO DIFF Differential Comment AUTO DIFF CONFIRMED Platelet Estimate LOW Platelet Morphology Comment NORMAL Stomatocytes 2+ Blood Urea Nitrogen 44 MG/DL Creatinine 1.05 MG/DL Random Glucose 141 MG/DL Total Protein 5.1 GM/DL Albumin 2.5 GM/DL Calcium Level 6.7 MG/DL Magnesium Level 1.7 MG/DL Alkaline Phosphatase 49 U/L Aspartate Amino Transf (AST/SGOT) 39 U/L Alanine Aminotransferase (ALT/SGPT) 13 U/L Total Bilirubin 0.5 MG/DL Sodium Level 144 MEQ/L Chloride Level 106 MEQ/L Carbon Dioxide Level 32.2 MEQ/L Anion Gap 6 MEQ/L Estimat Glomerular Filtration Rate 52 ML/MIN Protein Corrected Calcium 7.7 MG/DL Imaging Last Impressions Chest X-Ray 11/23/17 0000 Signed Impressions: Service Date/Time: Thursday, November 23, 2017 10:56 - CONCLUSION: Small right pleural effusion. Scattered bibasilar atelectasis is noted. Swapnil Saldaña MD Abdomen X-Ray 11/23/17 0000 Signed Impressions: Service Date/Time: Thursday, November 23, 2017 06:14 - CONCLUSION: Nonobstructive bowel gas pattern without significant change. Ousmane Aguilar MD Brain MRI 11/20/17 1409 Signed Impressions: Service Date/Time: October 20:54 - CONCLUSION: 1. No acute intracranial abnormality. Right-sided mastoid air cell disease. No recent infarct, mass effect or shift. Roby Brito MD Lower Extremity Ultrasound 11/20/17 0000 Signed Impressions: Service Date/Time: October 11:48 - CONCLUSION: 1. No evidence of DVT. 2. Small right Stovall's cyst. Keven Lake MD Head CT 11/20/17 0000 Signed Impressions: Service Date/Time: October 11:29 - CONCLUSION: 1. Focal decreased attenuation involving the right armin consistent with lacunar infarct or ischemic change. 2. No acute hemorrhage, midline shift or extra-axial fluid collections. 3. Small fluid level within the right sphenoid sinus. Swapnil Saldaña MD Chest CT 11/19/17 0000 Signed Impressions: Service Date/Time: Sunday, November 19, 2017 17:10 - CONCLUSION: Minimal consolidative changes as above Small pleural effusions. Luis A Castillo MD FACR Abdomen/Pelvis CT 11/19/17 0000 Signed Impressions: Service Date/Time: Sunday, November 19, 2017 17:10 - CONCLUSION: Trace ascites or subcapsular fluid around liver Prominent gallbladder Luis A Castillo MD FACR Abdomen Ultrasound 11/17/17 0000 Signed Impressions: Service Date/Time: Friday, November 17, 2017 08:01 - CONCLUSION: Negative for occlusion or significant stenosis. Luis A Castillo MD FACR Objective Remarks GENERAL: This is a pale thin female lethargic SKIN: Warm and dry. Pale HEAD: Atraumatic. Normocephalic. EYES: Pupils equal and round. No scleral icterus. No injection or drainage. ENT: No nasal bleeding or discharge. Mucous membranes pink and moist. NG tube to LIWS-300cc- bilious NECK: Trachea midline. No JVD. CARDIOVASCULAR: Tachycardic rate, regular rhythm. RESPIRATORY: No accessory muscle use. Clear to auscultation. Breath sounds equal bilaterally.Nasal Cannula 3 L/m GASTROINTESTINAL: Abdomen soft, non-tender, nondistended. No guarding. MUSCULOSKELETAL: Extremities without clubbing, cyanosis, or edema. No obvious deformities. NEUROLOGICAL:Lethargic. No gross focal/sensory deficits. Follows commands in all 4 extremities. A/P Problem List: (1) Chronic anemia ICD Code: D64.9 - Anemia, unspecified Status: Acute (2) Idiopathic thrombocytopenia purpura ICD Code: D69.3 - Immune thrombocytopenic purpura Status: Acute (3) COPD (chronic obstructive pulmonary disease) ICD Code: J44.9 - Chronic obstructive pulmonary disease, unspecified Status: Acute (4) NISHANT (acute kidney injury) ICD Code: N17.9 - Acute kidney failure, unspecified Status: Acute (5) Chronic back pain ICD Code: M54.9 - Dorsalgia, unspecified; G89.29 - Other chronic pain Status: Acute (6) Hypertension ICD Code: I10 - Essential (primary) hypertension Status: Acute (7) Acute and chronic respiratory failure with hypoxia ICD Code: J96.21 - Acute and chronic respiratory failure with hypoxia Status: Acute (8) Abdominal pain ICD Code: R10.9 - Unspecified abdominal pain Status: Acute (9) Metabolic acidemia ICD Code: E87.2 - Acidosis Status: Acute Assessment and Plan Assessment Plan Plan by systems: Neurologic: Chronic back pain 10/03 impression fractures Neurochecks per ICU protocol MRI brain 11/21 no acute abnormalities 11/20 EEG: bihemispheric slowing. There are some intermixed slow sharp waves, but no distinct paroxysmal discharges. The pattern suggests severe bilateral abnormalities, either metabolic or structural Neuro is following- Dr. Hyman Dilaudid 0.5 mg every 4 hours when necessary for breakthrough pain scale 7-10 Tylenol 650 mg every 6 hours when necessary for pain or temperature greater than 100.5 Patient on home dose [place] for pain control will hold for now Respiratory: COPD Asthma Home O2 dependency Continue with oxygen keep sats >92% home O2 dependency Continue DuoNeb, Spiriva and budesonide- home medications Aspiration precautions Cardiovascular: Hypertension Sinus tachycardia On Cardizem 60mg Q6, Lopressor 50mg Q12. Keep MAP>65mmHg Renal: NISHANT Monitor renal function, I/O's, electrolytes replacement as needed. Will need K, Phos replacement FEN/GI: Elevated LFT's On PPN/Iipids, GI and surgery are following KUB abdomen 11/23: Non obstructive bowel gas pattern CT abd/pelvis: Trace ascites or subcapsular fluid around liver Prominent gallbladder US abdomen: Negative for occlusion or significant stenosis. NGT to LIWS, rectal tube in place For small bowel series with Gastrografin per GI d/c IVF KUB 11/21 showed no obstruction. Wean off PPN and start truckle feeds if ok with GI( Jevity 1.5 with goal rate 50ml/hr) On Rifaximin, Lactulose monitor ammonia level ( 29) ID: Continue abx ( Cefepime, Flagyl, Vanco) monitor for signs of infections ( Fever , WBC) BC 11/16:NGTD, pancultured 11/23 ID is following Heme History of DVT 09/2017 Chronic ITP Hematology following-Dr. Luong. For transfusion1 u PRBC today s/p transfuse 1u PLT pheresis 11/23 11/17, 11/18 Transfused 1u PRBC Platelet count normally 40-70,000 Patient had left popliteal embolectomy 09/2017, Dr. Mixon and was placed on Pradaxa, patient under the care of parts counter associate Dr. Reyna. 11/18 Patient takes Xarelto 20mg/d, Argatroban held Doppler US LE negative for DVT Endocrine: Hyperglycemia of critical illness Glucose monitoring per ICU [id number] regimen -- SSI Prophylaxis: GI Prophylaxis Famotidine BID DVT Prophylaxis -- SCDs Patient's home med include Xarelto. on Argatroban Lines: Peripheral IVs 2. Level 2 Problem Qualifiers (1) Abdominal pain: Qualified Codes: R10.84 - Generalized abdominal pain Nevaeh Saldana MD Nov 24, 2017 13:28
[2017-11-24] MEDS: VANCOMYCIN 1,000 MG/NS 250 ML IV SCH ×2 (14:28)
[2017-11-24 14:31] LABS: AUTOMATED NEUTROPHIL # 5.9 TH/MM3 (1.8-7.7); BASOPHIL % 0.2 % (0.0-2.0); EOSINOPHIL # 0.1 TH/MM3 (0-0.4); EOSINOPHIL % 0.7 % (0.0-4.0); HEMATOCRIT 25.4 % (35.0-46.0); HEMOGLOBIN 8.9 GM/DL (11.6-15.3); LYMPH % 20.4 % (9.0-44.0); LYMPHOCYTE # 1.8 TH/MM3 (1.0-4.8); MEAN CORPUSCULAR HGB CONC 34.9 % (32.0-36.0); MEAN PLATELET VOLUME 8.2 FL (7.0-11.0); NEUT % 67.7 % (16.0-70.0); PLATELET COUNT 95 TH/MM3 (150-450); RED BLOOD COUNT 2.46 MIL/MM3 (4.00-5.30); RED CELL DISTRIBUTION WIDTH 25.4 % (11.6-17.2); WHITE BLOOD COUNT 8.7 TH/MM3 (4.0-11.0)
[2017-11-24] MEDS ORDERED: CALCIUM GLUCONATE INJ 1 GM in SODIUM CHLORIDE 0.9% INJ 100 ML IV ONE (15:00)
[2017-11-24 15:05] LABS: BANDS 20 % (0-6); CORRECTED NUCLEATED RBC 1 /100 WBC (0-0); LYMPHOCYTES 22 % (9-44); MONOCYTES 10 % (0-8); NEUTROPHIL # MANUAL DIFF 5.8 TH/MM3 (1.8-7.7); NUCLEATED RED BLOOD CELL 1 (0-0); POLYS (SEG NEUTROPHILS) 47 % (16-70)
[2017-11-24 15:06] LABS: DOHLE BODIES PRESENT (NONE SEEN); HOWELL-JOLLY BODIES PRESENT (NONE SEEN)
[2017-11-24 15:07] LABS: TOXIC GRANULATION 3+ (NORMAL)
--- NOTE | 2017-11-24 15:50 | HHI.PR ---
cc: Eriberto Box MD Subjective Subjective Notes Resting in bed Much more alert and awake on examine today; agrees Objective Vitals/I&O Vital Signs Date Time Temp Pulse Resp B/P (MAP) Pulse Ox O2 Delivery O2 Flow Rate FiO2 11/24/17 14:00 99 11/24/17 13:25 20 11/24/17 12:00 99.0 123/66 (85) 97 11/24/17 08:04 Venturi Mask 50 11/24/17 04:04 6.00 Labs Laboratory Tests Test 11/23/17 20:38 11/24/17 02:50 11/24/17 14:07 Platelet Count 110 109 95 Potassium Level 4.5 3.1 Phosphorus Level 2.2 1.9 Iron Level 39 Ferritin 512 Ammonia 41 25-Hydroxy Vitamin D Total 12.3 Anti-Nuclear Antibody Screen NEG White Blood Count 7.8 8.7 Red Blood Count 1.74 2.46 Hemoglobin 6.7 8.9 Hematocrit 19.6 25.4 Mean Corpuscular Volume 112.6 103.0 Mean Corpuscular Hemoglobin 38.4 36.0 Mean Corpuscular Hemoglobin Concent 34.1 34.9 Red Cell Distribution Width 21.8 25.4 Mean Platelet Volume 7.6 8.2 Neutrophils (%) (Auto) 66.9 67.7 Lymphocytes (%) (Auto) 21.8 20.4 Monocytes (%) (Auto) 10.2 11.0 Eosinophils (%) (Auto) 0.7 0.7 Basophils (%) (Auto) 0.4 0.2 Neutrophils # (Auto) 5.2 5.9 Lymphocytes # (Auto) 1.7 1.8 Monocytes # (Auto) 0.8 1.0 Eosinophils # (Auto) 0.1 0.1 Basophils # (Auto) 0.0 0.0 CBC Comment AUTO DIFF AUTO DIFF Differential Comment AUTO DIFF CONFIRMED FINAL DIFF MANUAL Platelet Estimate LOW Platelet Morphology Comment NORMAL Stomatocytes 2+ Blood Urea Nitrogen 44 Creatinine 1.05 Random Glucose 141 Total Protein 5.1 Albumin 2.5 Calcium Level 6.7 Magnesium Level 1.7 Alkaline Phosphatase 49 Aspartate Amino Transf (AST/SGOT) 39 Alanine Aminotransferase (ALT/SGPT) 13 Total Bilirubin 0.5 Sodium Level 144 Chloride Level 106 Carbon Dioxide Level 32.2 Anion Gap 6 Estimat Glomerular Filtration Rate 52 Protein Corrected Calcium 7.7 Differential Total Cells Counted 100 Neutrophils % (Manual) 47 Band Neutrophils % 20 Lymphocytes % 22 Monocytes % 10 Eosinophils % 1 Neutrophils # (Manual) 5.8 Nucleated Red Blood Cells 1 Toxic Granulation 3+ Dohle Bodies PRESENT Basophilic Stippling FAINT [place] Bodies PRESENT Date/Time Source Procedure Growth Status 11/23/17 12:22 Blood Peripheral Aerobic Blood Culture - Preliminary NO GROWTH IN 1 DAY Resulted 11/23/17 12:22 Blood Peripheral Anaerobic Blood Culture - Preliminary NO GROWTH IN 1 DAY Resulted 11/18/17 14:25 Stool Stool Stool Occult Blood (KIM) - Final HEMOCCULT POSITIVE Complete 11/23/17 13:45 Sputum Expectorated Sputum Gram Stain - Final Resulted 11/23/17 13:45 Sputum Expectorated Sputum Sputum Culture Pending Resulted 11/23/17 13:45 Urine Clean Catch Urine Culture - Preliminary IMMATURE GROWTH - REINCUBATE Resulted Radiology Last 48 hours Impressions Abdomen/Pelvis CT 11/17/17 0000 Signed Impressions: Service Date/Time: Friday, November 17, 2017 01:08 - CONCLUSION: 1. Distended stomach. 2. Fluid distended colon without dilated loops of small bowel. Víctor Bates MD Abdomen X-Ray 11/17/17 0000 Signed Impressions: Service Date/Time: Friday, November 17, 2017 07:37 - CONCLUSION: No bowel obstruction, ileus or perforation. Swapnil Saldaña MD Abdomen Ultrasound 11/17/17 0000 Signed Impressions: Service Date/Time: Friday, November 17, 2017 08:01 - CONCLUSION: Negative for occlusion or significant stenosis. Luis A Castillo MD FACR Chest X-Ray 11/16/17 [id number] Signed Impressions: Service Date/Time: Thursday, November 16, 2017 23:51 - CONCLUSION: Hyperaerated lungs. No infiltrates seen. Víctor Bates MD Cardiovascular: Regular Lungs: Clear Abdomen: Other (minimal tenderness with palpation ) Narrative Exam NGT to LIWS Rectal tube in place A/P Assessment and Plan 67 year old female with abdominal pain; lactic acidosis -Much less lethargic today -Continued GI workup -RBC transfusion today -Replace K -Non surgical management Attending Statement The exam, history, and the medical decision-making described in the above note were completed with the assistance of the mid-level provider. I reviewed and agree with the findings presented. I attest that I had a [id number] encounter with the patient on the same day, and personally performed and documented my assessment and findings in the medical record. patient with abdominal pain, better since admission history of multiple comorbidities, COPD continue supportive care Nicky Neil/First Lissa MORA Nov 24, 2017 15:50 Eriberto Box MD Dec 02, 2017 12:24
[2017-11-24] MEDS: CLINIMIX 4.25/5 (Cust.Renal Periph) 1000 mL- </= 42 mls/hr IV SCH ×8 (20:45)
[2017-11-24] MEDS: FAT EMULSION 20% INJ 250 ML (@10 mls/hr) IV SCH (20:46)
[2017-11-24] MEDS: FAMOTIDINE 20 MG TAB PO SCH (20:46)
[2017-11-25] VITALS (31 sets, daily range): BP systolic 85–156; BP diastolic 48–86; PULSE 89–107; RESP 14–32; TEMP 97.7–99.6; O2SAT 94–100
[2017-11-25] MEDS: RESP: ALBUTEROL 2.5 MG/3 ML NEB (SCH) INH ×2 (00:44→03:13)
[2017-11-25] MEDS: HYDROmorphone HCL PF 2 MG/ML VIAL IV PRN ×2 (01:16→05:36)
[2017-11-25] MEDS: metroNIDAZOLE 500 MG INJ 100 ML IV SCH ×2 (02:27→12:28)
[2017-11-25] MEDS: CHLORHEXIDINE GLUCONATE 2 % 1 PACK (2 CLOTHS) TOP SCH (03:55)
[2017-11-25] MEDS: DILTIAZEM HCL 60 MG TAB PO SCH ×4 (04:40→23:44)
[2017-11-25] MEDS: RESP: ALBUTEROL 2.5 MG/3 ML NEB (PRN) NEB ×2 (07:54→20:45)
[2017-11-25] MEDS: RESP: BUDESONIDE 0.25 MG/2 ML NEB NEB SCH (07:54)
[2017-11-25] MEDS: CEFEPIME INJ 2,000 MG in SODIUM CHLORIDE 0.9% INJ 100 ML IV SCH ×2 (08:14→21:09)
[2017-11-25] MEDS: TIOTROPIUM BROMIDE 18 MCG INH INH SCH (08:14)
[2017-11-25] MEDS: LACTULOSE SYRUP 20 GM/30 ML CUP PO SCH ×3 (08:14→18:29)
[2017-11-25] MEDS: METOPROLOL TARTRATE 50 MG TAB PO SCH ×2 (08:14→21:09)
[2017-11-25] MEDS: SODIUM CHLORIDE 0.9% FLUSH 10 ML FLUSH IV FLUSH SCH ×2 (08:14→21:00)
[2017-11-25] MEDS: SODIUM CHLORIDE 0.9% FLUSH 10 ML FLUSH IV FLUSH PRN (08:14)
[2017-11-25] MEDS: FAMOTIDINE 20 MG TAB PO SCH ×2 (08:15→21:09)
[2017-11-25] MEDS: RIFAXIMIN 550 MG TAB PO SCH ×2 (08:16→21:10)
[2017-11-25] MEDS: DOCUSATE SODIUM 50 MG/SENNA 8.6 MG TAB PO SCH ×2 (08:16→21:09)
[2017-11-25 08:59] LABS: AUTOMATED NEUTROPHIL # 5.2 TH/MM3 (1.8-7.7); BASOPHIL % 0.3 % (0.0-2.0); EOSINOPHIL # 0.1 TH/MM3 (0-0.4); HEMATOCRIT 23.3 % (35.0-46.0); HEMOGLOBIN 8.1 GM/DL (11.6-15.3); LYMPH % 17.3 % (9.0-44.0); LYMPHOCYTE # 1.3 TH/MM3 (1.0-4.8); MEAN CELL VOLUME 103.1 FL (80.0-100.0); MEAN CORPUSCULAR HEMOGLOBIN 35.7 PG (27.0-34.0); MEAN CORPUSCULAR HGB CONC 34.6 % (32.0-36.0); MEAN PLATELET VOLUME 7.7 FL (7.0-11.0); MONO % 11.1 % (0.0-8.0); MONOCYTE # 0.8 TH/MM3 (0-0.9); NEUT % 70.3 % (16.0-70.0); PLATELET COUNT 63 TH/MM3 (150-450); RED BLOOD COUNT 2.26 MIL/MM3 (4.00-5.30); RED CELL DISTRIBUTION WIDTH 25.4 % (11.6-17.2); WHITE BLOOD COUNT 7.5 TH/MM3 (4.0-11.0)
[2017-11-25 09:08] LABS: INTERNATIONAL NORMALIZED RATIO 1.1 RATIO; PROTHROMBIN TIME - PATIENT 10.8 SEC (9.8-11.6)
[2017-11-25 09:27] LABS: ALBUMIN 2.9 GM/DL (3.4-5.0); BICARBONATE 29.6 MEQ/L (21.0-32.0); CALCIUM 7.1 MG/DL (8.5-10.1); CALCIUM-PROTEIN CORRECTED 7.6 MG/DL (8.5-10.1); CREATININE 1.03 MG/DL (0.50-1.00); MAGNESIUM 1.5 MG/DL (1.5-2.5); PHOSPHORUS 1.6 MG/DL (2.5-4.9); TOTAL BILIRUBIN ADULT 0.7 MG/DL (0.2-1.0); TOTAL PROTEIN 6.2 GM/DL (6.4-8.2)
--- NOTE | 2017-11-25 09:30 | HHI.CCPN ---
Subjective Remarks/Hospital Course This is a 67-year-old female that presented to [facility], by private transportation for evaluation of severe abdominal pain. Patient states of the past week she has had constipation so last evening took laxatives ( Senokot) x 3 days, and then today had large bowel movement multiple times with development of severe lower abdominal pain. Patient had subsequently noted some abdominal distention. Patient states her abdomen is exquisitely tender with any movement. Patient also complains of some epigastric pain. 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 No report of hematemesis or coffee-ground emesis. Patient states after bowel movements no report of melena or hematochezia. Patient rates her abdominal pain 10/10 in intensity, without relief of narcotics. The patient was transferred to [facility] , critical care medicine was consulted. Subjective: 11/18: Overnight the patient was known to be oliguric, the patient received approximately 5 L of normal saline , and 500 cc of 5% albumin during the night. NG tube output approximately 700 cc since admission. The patient was noted to be mildly confused this a.m. and progressively worsened. O2 saturation was 100% ,stat ABGs performed, metabolic acidosis with a bicarbonate level of 16. Patient received 2 A of sodium bicarbonate and bicarbonate infusion was initiated. Patient also was noted to be hypocalcemic this a.m. and received 2 g of calcium gluconate. The patient was started on Argatroban infusion after discussion with Dr. Howell, plan for endoscopy tomorrow . The patient was previously on Xarelto for DVT prophylaxis.Repeat labs performed early this afternoon revealed hemoglobin of 6.7, 1 unit of PRBC being transfused. She required restraints, for patient safety. Repeat labs pending this evening posttransfusion. 11/19: Afebrile. Last evening the patient became more confused metabolic acidosis, placed on sodium bicarbonate infusion, now corrected. Patient alert, following commands. Sodium bicarbonate infusion discontinued. Patient noted to be severely anemic with hemoglobin of 6.2 received 1 unit of PRBCs, last hemoglobin 9.4, stable. Continued serial monitoring of H&H labs pending this a.m.. Patient noted to have improvement in urine output overnight. EGD placed on hold. 11/20 No events overnight. Afebrile, on 3L oxygen. 11/21 Patient is on 2L oxygen. MRI brain last night showed no acute abnormalities. Afebrile. Lethargic 11/22 Patient is on 3L oxygen. Renal function is improving with Cr: 1.47 from 1.77. On Argatroban drip. 11/23 No events overnight, On Argatroban drip. Cr: 1.16 from 1.47. 11/24 Patient is more awake, off Argatroban drip, T:100.3. 1u PRBC ordered for Hgb 6.7 this morning. 11/25 Patient is on 50% VM with good sats. Afebrile. Objective Vital Signs Date Time Temp Pulse Resp B/P (MAP) Pulse Ox O2 Delivery O2 Flow Rate FiO2 11/25/17 07:55 97 Venturi Mask 6.00 50 11/25/17 06:15 98.0 94 20 132/61 Intake and Output 11/25/17 11/25/17 11/26/17 08:00 16:00 00:00 Intake Total 1428 ml Output Total 1500 ml Balance -72 ml Result Diagram: 11/25/17 0840 11/24/17 0250 Other Results Laboratory Tests Test 11/24/17 14:07 11/25/17 07:30 11/25/17 08:40 White Blood Count 8.7 TH/MM3 7.5 TH/MM3 Red Blood Count 2.46 MIL/MM3 2.26 MIL/MM3 Hemoglobin 8.9 GM/DL 8.1 GM/DL Hematocrit 25.4 % 23.3 % Mean Corpuscular Volume 103.0 FL 103.1 FL Mean Corpuscular Hemoglobin 36.0 PG 35.7 PG Mean Corpuscular Hemoglobin Concent 34.9 % 34.6 % Red Cell Distribution Width 25.4 % 25.4 % Platelet Count 95 TH/MM3 63 TH/MM3 Mean Platelet Volume 8.2 FL 7.7 FL Neutrophils (%) (Auto) 67.7 % 70.3 % Lymphocytes (%) (Auto) 20.4 % 17.3 % Monocytes (%) (Auto) 11.0 % 11.1 % Eosinophils (%) (Auto) 0.7 % 1.0 % Basophils (%) (Auto) 0.2 % 0.3 % Neutrophils # (Auto) 5.9 TH/MM3 5.2 TH/MM3 Lymphocytes # (Auto) 1.8 TH/MM3 1.3 TH/MM3 Monocytes # (Auto) 1.0 TH/MM3 0.8 TH/MM3 Eosinophils # (Auto) 0.1 TH/MM3 0.1 TH/MM3 Basophils # (Auto) 0.0 TH/MM3 0.0 TH/MM3 CBC Comment AUTO DIFF AUTO DIFF Differential Total Cells Counted 100 Neutrophils % (Manual) 47 % Band Neutrophils % 20 % Lymphocytes % 22 % Monocytes % 10 % Eosinophils % 1 % Neutrophils # (Manual) 5.8 TH/MM3 Nucleated Red Blood Cells 1 /100 WBC Differential Comment FINAL DIFF MANUAL Toxic Granulation 3+ Dohle Bodies PRESENT Basophilic Stippling FAINT [place] Bodies PRESENT Blood Gas Puncture Site LT RADIAL Blood Gas Patient Temperature 98.6 Blood Gas HCO3 31 mmol/L Blood Gas Base Excess 5.3 mmol/L Blood Gas Oxygen Saturation 93 % Arterial Blood pH 7.36 Arterial Blood Partial Pressure CO2 56 mmHg Arterial Blood Partial Pressure O2 85 mmHg Arterial Blood Oxygen Content 10.6 Vol % Arterial Blood Carboxyhemoglobin 1.7 % Arterial Blood Methemoglobin 1.3 % Blood Gas Hemoglobin 8.0 G/DL Oxygen Delivery Device Venti Mask Blood Gas Liter Flow 6 L/M Blood Gas Inspired Oxygen 50 % Prothrombin Time 10.8 SEC Prothromb Time International Ratio 1.1 RATIO Imaging Last Impressions Chest X-Ray 11/23/17 0000 Signed Impressions: Service Date/Time: Thursday, November 23, 2017 10:56 - CONCLUSION: Small right pleural effusion. Scattered bibasilar atelectasis is noted. Swapnil Saldaña MD Abdomen X-Ray 11/23/17 0000 Signed Impressions: Service Date/Time: Thursday, November 23, 2017 06:14 - CONCLUSION: Nonobstructive bowel gas pattern without significant change. Ousmane Aguilar MD Brain MRI 11/20/17 1409 Signed Impressions: Service Date/Time: October 20:54 - CONCLUSION: 1. No acute intracranial abnormality. Right-sided mastoid air cell disease. No recent infarct, mass effect or shift. Roby Brito MD Lower Extremity Ultrasound 11/20/17 0000 Signed Impressions: Service Date/Time: October 11:48 - CONCLUSION: 1. No evidence of DVT. 2. Small right Sotvall's cyst. Keven Lake MD Head CT 11/20/17 0000 Signed Impressions: Service Date/Time: October 11:29 - CONCLUSION: 1. Focal decreased attenuation involving the right armin consistent with lacunar infarct or ischemic change. 2. No acute hemorrhage, midline shift or extra-axial fluid collections. 3. Small fluid level within the right sphenoid sinus. Swapnil Saldaña MD Chest CT 11/19/17 0000 Signed Impressions: Service Date/Time: Sunday, November 19, 2017 17:10 - CONCLUSION: Minimal consolidative changes as above Small pleural effusions. Luis A Castillo MD FACR Abdomen/Pelvis CT 11/19/17 0000 Signed Impressions: Service Date/Time: Sunday, November 19, 2017 17:10 - CONCLUSION: Trace ascites or subcapsular fluid around liver Prominent gallbladder Luis A Castillo MD FACR Abdomen Ultrasound 11/17/17 0000 Signed Impressions: Service Date/Time: Friday, November 17, 2017 08:01 - CONCLUSION: Negative for occlusion or significant stenosis. Luis A Castillo MD FACR Objective Remarks GENERAL: This is a pale thin female lying in bed in [facility] SKIN: Warm and dry. Pale HEAD: Atraumatic. Normocephalic. EYES: Pupils equal and round. No scleral icterus. No injection or drainage. ENT: No nasal bleeding or discharge. Mucous membranes pink and moist. NG tube to [id number]- bilious NECK: Trachea midline. No JVD. CARDIOVASCULAR: Tachycardic rate, regular rhythm. RESPIRATORY: No accessory muscle use. Clear to auscultation. Breath sounds equal bilaterally GASTROINTESTINAL: Abdomen soft, non-tender, nondistended. No guarding. MUSCULOSKELETAL: Extremities without clubbing, cyanosis, or edema. No obvious deformities. NEUROLOGICAL: Awake A/P Problem List: (1) Chronic anemia ICD Code: D64.9 - Anemia, unspecified Status: Acute (2) Idiopathic thrombocytopenia purpura ICD Code: D69.3 - Immune thrombocytopenic purpura Status: Acute (3) COPD (chronic obstructive pulmonary disease) ICD Code: J44.9 - Chronic obstructive pulmonary disease, unspecified Status: Acute (4) NISHANT (acute kidney injury) ICD Code: N17.9 - Acute kidney failure, unspecified Status: Acute (5) Chronic back pain ICD Code: M54.9 - Dorsalgia, unspecified; G89.29 - Other chronic pain Status: Acute (6) Hypertension ICD Code: I10 - Essential (primary) hypertension Status: Acute (7) Acute and chronic respiratory failure with hypoxia ICD Code: J96.21 - Acute and chronic respiratory failure with hypoxia Status: Acute (8) Abdominal pain ICD Code: R10.9 - Unspecified abdominal pain Status: Acute (9) Metabolic acidemia ICD Code: E87.2 - Acidosis Status: Acute Assessment and Plan Assessment Plan Plan by systems: Neurologic: Chronic back pain 10/03 impression fractures Neurochecks per ICU protocol MRI brain 11/21 no acute abnormalities 11/20 EEG: bihemispheric slowing. There are some intermixed slow sharp waves, but no distinct paroxysmal discharges. The pattern suggests severe bilateral abnormalities, either metabolic or structural Neuro is following- Dr. Hyman Dilaudid 0.5 mg every 4 hours when necessary for breakthrough pain scale 7-10 Tylenol 650 mg every 6 hours when necessary for pain or temperature greater than 100.5 Patient on home dose [place] for pain control will hold for now Respiratory: COPD Asthma Home O2 dependency Continue with oxygen keep sats >92% home O2 dependency Continue DuoNeb, Spiriva and budesonide- home medications Aspiration precautions Cardiovascular: Hypertension Sinus tachycardia On Cardizem 60mg Q6, Lopressor 50mg Q12. Keep MAP>65mmHg Renal: NISHANT Monitor renal function, I/O's, electrolytes replacement as needed. Will need K, Phos replacement FEN/GI: Elevated LFT's ( trending down) s/p EGD today showed erosive gastritis On PPN/Iipids, GI and surgery are following KUB abdomen 11/23: Non obstructive bowel gas pattern CT abd/pelvis: Trace ascites or subcapsular fluid around liver Prominent gallbladder US abdomen: Negative for occlusion or significant stenosis. NGT to LIWS, rectal tube in place KUB 11/21 showed no obstruction. Wean off PPN and start truckle feeds if ok with GI( Jevity 1.5 with goal rate 50ml/hr) On Rifaximin, Lactulose monitor ammonia level ( 29) ID: Continue abx ( Cefepime, Flagyl, Vanco) monitor for signs of infections ( Fever , WBC) BC 11/16:NGTD, pancultured 11/23 ID is following Heme History of DVT 09/2017 Chronic ITP Hematology following-Dr. Luong. s/p transfusion1 u PRBC 11/24 s/p transfuse 1u PLT pheresis 11/23 11/17, 11/18 Transfused 1u PRBC Platelet count normally 40-70,000 Patient had left popliteal embolectomy 09/2017, Dr. Mixon and was placed on Pradaxa, patient under the care of director of development and marketing Dr. Reyna. 11/18 Patient takes Xarelto 20mg/d, Argatroban held per Heme Doppler US LE negative for DVT Endocrine: Hyperglycemia of critical illness Glucose monitoring per ICU [id number] regimen -- SSI Prophylaxis: GI Prophylaxis Famotidine BID DVT Prophylaxis -- SCDs Patient's home med include Xarelto. Argatroban stopped per Heme Lines: Peripheral IVs 2. Addendum: Patient kept intubated post EGD will keep on vent overnight and plan for SBT in am and possible extubation. Can wean off PPN and start trickle feeds discussed with GI- Dr. Sierra Level 2 Problem Qualifiers (1) Abdominal pain: Qualified Codes: R10.84 - Generalized abdominal pain Nevaeh Saldana MD Nov 25, 2017 09:30
[2017-11-25 09:33] LABS: BANDS 30 % (0-6); CORRECTED NUCLEATED RBC 1 /100 WBC (0-0); LYMPHOCYTES 8 % (9-44); MONOCYTES 11 % (0-8); NEUTROPHIL # MANUAL DIFF 6.1 TH/MM3 (1.8-7.7); NUCLEATED RED BLOOD CELL 1 (0-0); POLYS (SEG NEUTROPHILS) 51 % (16-70)
[2017-11-25 09:34] LABS: ACANTHOCYTES OCC (NORMAL); HOWELL-JOLLY BODIES PRESENT (NONE SEEN); TARGET CELLS 1+ (NORMAL)
[2017-11-25 09:35] LABS: TOXIC GRANULATION 1+ (NORMAL)
[2017-11-25] MEDS ORDERED: CALCIUM GLUCONATE INJ 1 GM in SODIUM CHLORIDE 0.9% INJ 100 ML IV ONE (11:00)
--- NOTE | 2017-11-25 11:07 | PD.PROCEDR ---
GI Procedure PROCEDURE PERFORMED EGD with biopsy INDICATION FOR PROCEDURE Right rib blood noted in the NG tube suggestive of upper GI bleed PROCEDURE: The procedure, risks and benefits were discussed with Ms. Greco and informed consent was obtained. Anesthesia sedated her with Diprivan. She was placed in the left lateral decubitus position. EGD: The Pentax videoscope was introduced through the oropharynx and advanced to the second portion of the duodenum under direct visualization. Retroflexion was performed in the stomach. FINDINGS: The esophagus this was unremarkable with normal limits The stomach there was some erythema with some mild friability and superficial erosions noted in the cardia possibly related to NG tube injury the rest of the stomach was unremarkable biopsies were taken from the cardia The duodenum this was normal ESTIMATED BLOOD LOSS: None SPECIMENS REMOVED: Biopsy from the cardia COMPLICATIONS: None IMPRESSION: Erosive gastritis of the cardia possibly related to NG tube injury PLAN: Await biopsies Continue Pepcid Monitor labs and transfuse as needed Minimize suction from the NG tube Continue with current supportive measures We will sign off Abundio Sierra MD Nov 25, 2017 11:07
[2017-11-25] MEDS ORDERED: PROPOFOL 1000 MG/100 ML INJ 100 ML ONE (11:22)
[2017-11-25] MEDS: POTASSIUM PHOSPHATE INJ 30 MMOL in SODIUM CHLOR 0.9% 250 ML INJ 250 ML IV PRN ×2 (11:55→12:28)
--- NOTE | 2017-11-25 11:57 | RADRPT ---
EXAM DATE/TIME: 11/25/2017 11:40 [facility] COMPARISON: CHEST SINGLE AP, November 23, 2017, 10:56. INDICATIONS : Post intubation. MEDICAL HISTORY : Hypertension. Chronic obstructive pulmonary disease. Arthritis. Anemia. Chronic ITP. SURGICAL HISTORY : Splenectomy. section. Bone marrow bx. ENCOUNTER: Subsequent ACUITY: 1 week PAIN SCORE: Non-responsive. LOCATION: Bilateral chest FINDINGS: Endotracheal and nasogastric tubes are noted in place. The tip of the endotracheal tube appears to be just above the charley. Tip of the nasogastric tube extends into the lower one third of the esophagus . Lungs are hyperinflated. Mild basilar haziness remains evident. CONCLUSION: 1. Tip of endotracheal tube just above the charley. 2. Tip of nasogastric tube in the distal esophagus. 3. COPD 4. Bibasilar opacity characteristic of airspace disease and possibly small effusions. Fernando Shaver MD on November 25, 2017 at 11:51 Board Certified Radiologist. This report was verified electronically.
[2017-11-25] MEDS ORDERED: SUCCINYLCHOLINE CHLORIDE 200 MG/10 ML VIAL IV ONE (12:00)
[2017-11-25] MEDS ORDERED: LIDOCAINE HCL 1% PF 5 ML SYRINGE OTHER ONE (12:00)
[2017-11-25] MEDS ORDERED: PROPOFOL 200 MG/20 ML AMP IV ONE (12:00)
[2017-11-25] MEDS ORDERED: DO NOT ADM ANY ANTICOAGULANT DRUGS PRN (12:00)
--- NOTE | 2017-11-25 13:02 | PD.ONC.PN ---
Subjective Subjective Remarks Afebrile overnight. patient intubated, sedated. just returned from EGD. Objective Data Date Time Temp Pulse Resp B/P (MAP) Pulse Ox O2 Delivery O2 Flow Rate FiO2 11/25/17 12:05 40 11/25/17 12:00 98.6 92 18 94/52 (66) 100 11/25/17 12:00 92 11/25/17 11:30 100 40 11/25/17 11:00 99 18 134/74 (94) 95 11/25/17 10:00 96 30 142/67 (92) 98 11/25/17 10:00 97 11/25/17 09:00 98 32 149/86 (107) 97 11/25/17 08:00 107 11/25/17 08:00 98.0 107 31 147/82 (103) 99 11/25/17 07:55 97 Venturi Mask 6.00 50 11/25/17 07:00 97 18 148/73 (98) 95 11/25/17 06:15 98.0 94 20 132/61 98 11/25/17 06:06 17 11/25/17 06:00 93 11/25/17 05:49 98.0 92 17 127/59 98 11/25/17 04:30 99.6 102 27 144/65 99 11/25/17 04:13 98.5 100 20 156/72 99 11/25/17 04:00 104 11/25/17 04:00 97.7 104 17 156/72 (100) 95 11/25/17 03:11 97.7 99 17 127/60 94 11/25/17 02:46 97.7 92 15 101/57 97 11/25/17 02:00 91 11/25/17 00:00 98.5 92 30 141/67 (91) 96 11/25/17 00:00 92 11/24/17 22:00 97 11/24/17 20:00 98.7 102 30 132/77 (95) 95 11/24/17 20:00 102 11/24/17 19:25 96 Venturi Mask 6.00 50 11/24/17 18:00 100 11/24/17 16:00 100 11/24/17 16:00 98.8 100 18 128/71 (90) 98 11/24/17 14:00 99 11/25/17 11/25/17 11/25/17 07:00 15:00 23:00 Intake Total 1428 ml 150 ml Output Total 1500 ml Balance -72 ml 150 ml Result Diagram: 11/25/17 0840 11/25/17 0840 Laboratory Results Laboratory Tests Test 11/24/17 14:07 11/25/17 07:30 11/25/17 08:40 11/25/17 12:10 White Blood Count 8.7 TH/MM3 7.5 TH/MM3 Red Blood Count 2.46 MIL/MM3 2.26 MIL/MM3 Hemoglobin 8.9 GM/DL 8.1 GM/DL Hematocrit 25.4 % 23.3 % Mean Corpuscular Volume 103.0 FL 103.1 FL Mean Corpuscular Hemoglobin 36.0 PG 35.7 PG Mean Corpuscular Hemoglobin Concent 34.9 % 34.6 % Red Cell Distribution Width 25.4 % 25.4 % Platelet Count 95 TH/MM3 63 TH/MM3 Mean Platelet Volume 8.2 FL 7.7 FL Neutrophils (%) (Auto) 67.7 % 70.3 % Lymphocytes (%) (Auto) 20.4 % 17.3 % Monocytes (%) (Auto) 11.0 % 11.1 % Eosinophils (%) (Auto) 0.7 % 1.0 % Basophils (%) (Auto) 0.2 % 0.3 % Neutrophils # (Auto) 5.9 TH/MM3 5.2 TH/MM3 Lymphocytes # (Auto) 1.8 TH/MM3 1.3 TH/MM3 Monocytes # (Auto) 1.0 TH/MM3 0.8 TH/MM3 Eosinophils # (Auto) 0.1 TH/MM3 0.1 TH/MM3 Basophils # (Auto) 0.0 TH/MM3 0.0 TH/MM3 CBC Comment AUTO DIFF AUTO DIFF Differential Total Cells Counted 100 100 Neutrophils % (Manual) 47 % 51 % Band Neutrophils % 20 % 30 % Lymphocytes % 22 % 8 % Monocytes % 10 % 11 % Eosinophils % 1 % Neutrophils # (Manual) 5.8 TH/MM3 6.1 TH/MM3 Nucleated Red Blood Cells 1 /100 WBC 1 /100 WBC Differential Comment FINAL DIFF MANUAL FINAL DIFF MANUAL Toxic Granulation 3+ 1+ Dohle Bodies PRESENT Basophilic Stippling FAINT [place] Bodies PRESENT PRESENT Blood Gas Puncture Site LT RADIAL LT BRACHIAL Blood Gas Patient Temperature 98.6 98.6 Blood Gas HCO3 31 mmol/L 31 mmol/L Blood Gas Base Excess 5.3 mmol/L 5.6 mmol/L Blood Gas Oxygen Saturation 93 % 94 % Arterial Blood pH 7.36 7.37 Arterial Blood Partial Pressure CO2 56 mmHg 54 mmHg Arterial Blood Partial Pressure O2 85 mmHg 91 mmHg Arterial Blood Oxygen Content 10.6 Vol % 12.4 Vol % Arterial Blood Carboxyhemoglobin 1.7 % 1.6 % Arterial Blood Methemoglobin 1.3 % 1.4 % Blood Gas Hemoglobin 8.0 G/DL 9.3 G/DL Oxygen Delivery Device Venti Mask VENTILATOR Blood Gas Liter Flow 6 L/M Blood Gas Inspired Oxygen 50 % 40 % Platelet Estimate LOW Platelet Morphology Comment NORMAL Target Cells 1+ Acanthocytes OCC Prothrombin Time 10.8 SEC Prothromb Time International Ratio 1.1 RATIO Blood Urea Nitrogen 36 MG/DL Creatinine 1.03 MG/DL Random Glucose 124 MG/DL Total Protein 6.2 GM/DL Albumin 2.9 GM/DL Calcium Level 7.1 MG/DL Phosphorus Level 1.6 MG/DL Magnesium Level 1.5 MG/DL Alkaline Phosphatase 62 U/L Aspartate Amino Transf (AST/SGOT) 32 U/L Alanine Aminotransferase (ALT/SGPT) 13 U/L Total Bilirubin 0.7 MG/DL Sodium Level 142 MEQ/L Potassium Level 3.4 MEQ/L Chloride Level 106 MEQ/L Carbon Dioxide Level 29.6 MEQ/L Anion Gap 6 MEQ/L Estimat Glomerular Filtration Rate 53 ML/MIN Protein Corrected Calcium 7.6 MG/DL Blood Gas Ventilator Setting Culture Results Microbiology Date/Time Source Procedure Growth Status 11/23/17 12:22 Blood Peripheral Aerobic Blood Culture - Preliminary NO GROWTH IN 2 DAYS Resulted 11/23/17 12:22 Blood Peripheral Anaerobic Blood Culture - Preliminary NO GROWTH IN 2 DAYS Resulted 11/23/17 12:10 Blood Peripheral Aerobic Blood Culture - Preliminary NO GROWTH IN 2 DAYS Resulted 11/23/17 12:10 Blood Peripheral Anaerobic Blood Culture - Preliminary NO GROWTH IN 2 DAYS Resulted 11/23/17 13:45 Sputum Expectorated Sputum Gram Stain - Final Complete 11/23/17 13:45 Sputum Expectorated Sputum Sputum Culture - Final HEAVY GROWTH NORMAL RESPIRATORY [place] Complete 11/23/17 13:45 Urine Clean Catch Urine Culture - Preliminary Yeast-Id To Follow Resulted Administered Medications Medications (Trade) Dose Ordered Sig/[place] Route PRN Reason Start Time Stop Time Status Last Admin Dose Admin Sodium Chloride (NS Flush) 2 ml UNSCH PRN IV FLUSH FLUSH AFTER USING IV ACCESS 11/17/17 06:45 11/25/17 08:14 Sodium Chloride (NS Flush) 2 ml BID IV FLUSH 11/17/17 09:00 11/25/17 08:14 Acetaminophen (Tylenol) 650 mg Q6H PRN PO PAIN 1-10 AND/OR FEVER >101F 11/17/17 06:45 11/24/17 08:24 Albuterol/ Ipratropium (Duoneb Neb) 1 ampule Q4HR NEB PRN INH WHEEZING 11/17/17 06:45 11/19/17 12:31 Miscellaneous Information 1 Q361D XX 11/17/17 06:45 11/17/17 06:45 Chlorhexidine Gluconate (Chlorhexidine 2% Cloth) Taper DAILY@04 TOP 11/18/17 04:00 11/14/18 03:59 11/24/17 04:00 Senna/Docusate Sodium (Rita-Colace) 1 tab BID PO 11/17/17 09:00 11/25/17 08:16 Sennosides (Senokot) 17.2 mg Q12H PRN PO Moderate constipation 11/17/17 06:45 11/17/17 09:11 Lactulose (Lactulose Liq) 30 ml DAILY PRN PO SEVERE CONSITIPATION 11/17/17 06:45 11/17/17 09:11 Albuterol Sulfate (Albuterol Neb) 2.5 mg Q4HR NEB PRN NEB SHORTNESS OF BREATH 11/17/17 07:45 11/25/17 07:54 Budesonide (Pulmicort Respule Neb) 0.25 mg DAILY NEB NEB 11/17/17 08:00 11/25/17 07:54 Tiotropium [place] (Spiriva Inh) 18 mcg DAILY INH 11/17/17 09:00 11/25/17 08:14 Metronidazole 100 ml @ 100 mls/hr Q8H IV 11/17/17 20:00 11/25/17 12:28 Argatroban 250 mg/ Sodium Chloride 252.5 ml @ 1.92 mls/hr TITRATE PRN IV aPTT < 50 11/18/17 12:45 Future Hold 11/22/17 15:20 Sodium Chloride 5.5 meq/Sodium Acetate 29.5 meq/ Potassium Chloride 20 meq/ Magnesium Chloride 5 meq/ Calcium Chloride 4.5 meq/ Multivitamins 10 ml/Folic Acid 1 mg/Amino Acids/ Dextrose 1,042.1719 ml @ 42 mls/hr Q24H IV 11/19/17 20:00 11/24/17 20:45 Fat Emulsion Intravenous 250 ml @ 10 mls/hr Q24H IV 11/19/17 20:00 11/24/17 20:46 Diltiazem HCl (Cardizem) 60 mg Q6HR PO 11/20/17 12:00 11/25/17 04:40 Rifaximin (Xifaxan) 550 mg BID PO 11/20/17 21:00 11/25/17 08:16 Lactulose (Lactulose Liq) 15 ml TID PO 11/21/17 09:00 11/25/17 12:28 Potassium Chloride 100 ml @ 50 mls/hr Q2H PRN IV For Potassium 2.8 - 3.2 mEq/L 11/21/17 13:30 11/24/17 13:14 Potassium Bicarb/ Potassium Chloride (K-Lyte Cl Eff) 50 meq UNSCH PRN PO For Potassium 3.3 - 3.5 mEq/L 11/21/17 13:30 11/21/17 13:47 Potassium Chloride 100 ml @ 50 mls/hr Q2H PRN IV For Potassium 3.3 - 3.5 mEq/L 11/21/17 13:30 11/22/17 10:08 Magnesium Sulfate 2 gm/Sodium Chloride 100 ml @ 50 mls/hr UNSCH PRN IV For Magnesium 1.2 - 1.6 mg/dL 11/21/17 13:30 11/22/17 05:09 Sodium Phosphate 30 mmol/Sodium Chloride 250 ml @ 42 mls/hr UNSCH PRN IV For Phosphorus < 2.5 mg/dL 11/21/17 13:30 11/24/17 02:29 Potassium Phosphate 30 mmol/ Sodium Chloride 260 ml @ 42 mls/hr UNSCH PRN IV SEE LABEL COMMENTS 11/21/17 13:30 11/25/17 11:55 Hydralazine HCl (Apresoline Inj) 10 mg Q4H PRN IV PUSH SYS BP GREATER THAN 160 MMHG 11/21/17 16:45 11/22/17 02:07 Metoprolol Tartrate (Lopressor Inj) 5 mg Q5M PRN IV PUSH HR>100 11/22/17 00:00 11/22/17 00:55 Hydromorphone HCl (Dilaudid Pf Inj) 0.5 mg Q4H PRN IV pain >5/10 11/22/17 02:45 11/25/17 05:36 Metoprolol Tartrate (Lopressor) 50 mg Q12HR PO 11/22/17 09:00 11/25/17 08:14 Vancomycin HCl 1000 mg/Sodium Chloride 250 ml @ 250 mls/hr Q24H IV 11/23/17 15:00 11/24/17 14:28 Famotidine (Pepcid) 10 mg BID PO 11/24/17 21:00 11/25/17 08:15 Cefepime HCl 2000 mg/Sodium Chloride 100 ml @ 200 mls/hr Q12H IV 11/24/17 20:00 11/25/17 08:14 Objective Remarks GENERAL: intubated, sedated female. SKIN: Warm and dry. HEAD: Normocephalic. EYES: No injection or drainage. NECK: Supple, trachea midline. CARDIOVASCULAR: Regular rate and rhythm RESPIRATORY: Breath sounds equal bilaterally. No accessory muscle use. GASTROINTESTINAL: Abdomen soft, mildly distended. EXTREMITIES: No cyanosis NEUROLOGICAL: sedated Assessment/Plan Problem List: (1) Idiopathic thrombocytopenia purpura ICD Codes: D69.3 - Immune thrombocytopenic purpura Status: Acute Plan: --platelets may be lower due to consumption and antibiotics. --had splenectomy in 2009. --was treated with Nplate in the past with good response. --per , patient's baseline is between 50-70K and she has not required treatment for ITP since spleen removal several years ago. --platelet count has been fluctuating between 40,000-70,000. --no indication to start treatment for the idiopathic thrombocytopenic purpura at this point. (2) Arterial occlusion ICD Codes: I70.90 - Unspecified atherosclerosis Plan: 11/25: EGD showed erosive gastritis of the cardia. will continue to hold anticoagulation and watch H/H for now. 11/23: Argatroban placed on hold due to possible GI bleed --started on Argatroban on 11/18, tolerated well, no evidence of bleeding despite low platelet. No evidence of recurrent clot. 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 --had embolectomy in September of this year. then started on Pradaxa, but later switched to Xarelto. --presented with abdominal pain and could have ischemic bowel (3) Abdominal pain ICD Codes: R10.9 - Unspecified abdominal pain Status: Acute Plan: --EGD on 11/25 showed erosive gastritis of the cardia, possibly related to NGT injury. NGT was removed during procedure. --presented with acute severe abdominal pain. --CT did not show any bowel obstruction. --Ultrasound also negative for occlusion or stenosis. 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 h/o Chronic anemia. Chronic back pain. Multiple compression fractures. Chronic obstructive pulmonary disease. Hypertension. Left popliteal arterial occlusion. Plan 1. monitor CBC 2. continue to hold anticoagulation. If H/H remains stable, may consider reintroducing anticoagulation tomorrow. Attending Statement The exam, history, and the medical decision-making described in the above note were completed with the assistance of the mid-level provider. I reviewed and agree with the findings presented. I attest that I had a [id number] encounter with the patient on the same day, and personally performed and documented my assessment and findings in the medical record. When I saw pt this am, she was alert but confused. Mild abdominal pain. BLE warm and no evidence of clots. No report of bleeding noted. She is awaiting EGD. Hgb trended down slightly. Platelets trended down slightly. Continue to monitor and transfuse prn. Problem Qualifiers (1) Abdominal pain: Qualified Codes: R10.84 - Generalized abdominal pain Keke Foster Nov 25, 2017 13:02 Braden Luong MD Nov 25, 2017 14:54
[2017-11-25 14:04] LABS: SMOOTH MUSCLE TOTAL AUTOABS Negative (Negative)
[2017-11-25] MEDS: fentaNYL DRIP 250 ML IV PRN (14:38)
[2017-11-25] MEDS ORDERED: PHARMACY ORDERED LAB ONE (14:45)
[2017-11-25] MEDS: VANCOMYCIN 1,000 MG/NS 250 ML IV SCH ×2 (14:56)
[2017-11-25] MEDS: MAGNESIUM SULFATE INJ 2 GM in SODIUM CHLORIDE 0.9% INJ 96 ML IV PRN (16:06)
[2017-11-25] MEDS: PROPOFOL 1000 MG/100 ML IV PRN ×2 (16:54→23:44)
--- NOTE | 2017-11-25 17:03 | HHI.IDPN ---
Subjective Subjective Remarks sp EGD now intubated apparently resp distress p EGD now on vent Antibiotics cefepime vanco flagyl Allergies: Coded Allergies: Sulfa (Sulfonamide Antibiotics) (Verified Allergy, Severe, Hives, 11/16/17) ciprofloxacin (Verified Allergy, Severe, Hives, 11/16/17) Objective . Vital Signs Date Time Temp Pulse Resp B/P (MAP) Pulse Ox O2 Delivery O2 Flow Rate FiO2 11/25/17 16:12 100 40 11/25/17 16:00 101 11/25/17 14:00 91 11/25/17 12:05 40 11/25/17 12:00 98.6 92 18 94/52 (66) 100 11/25/17 12:00 92 11/25/17 11:30 100 40 11/25/17 11:30 96 14 103/52 (69) 99 Mechanical Ventilator 40 11/25/17 11:20 98.5 108 22 137/75 (95) 99 Mechanical Ventilator 40 11/25/17 11:20 40 11/25/17 11:00 99 18 134/74 (94) 95 11/25/17 10:00 96 30 142/67 (92) 98 11/25/17 10:00 97 11/25/17 09:00 98 32 149/86 (107) 97 11/25/17 08:00 107 11/25/17 08:00 98.0 107 31 147/82 (103) 99 11/25/17 07:55 97 Venturi Mask 6.00 50 11/25/17 07:00 97 18 148/73 (98) 95 11/25/17 06:15 98.0 94 20 132/61 98 11/25/17 06:06 17 11/25/17 06:00 93 11/25/17 05:49 98.0 92 17 127/59 98 11/25/17 04:30 99.6 102 27 144/65 99 11/25/17 04:13 98.5 100 20 156/72 99 11/25/17 04:00 104 11/25/17 04:00 97.7 104 17 156/72 (100) 95 11/25/17 03:11 97.7 99 17 127/60 94 11/25/17 02:46 97.7 92 15 101/57 97 11/25/17 02:00 91 11/25/17 00:00 98.5 92 30 141/67 (91) 96 11/25/17 00:00 92 11/24/17 22:00 97 11/24/17 20:00 98.7 102 30 132/77 (95) 95 11/24/17 20:00 102 11/24/17 19:25 96 Venturi Mask 6.00 50 11/24/17 18:00 100 11/25/17 11/25/17 11/26/17 15:00 23:00 07:00 Intake Total 360 ml Output Total 500 ml Balance -140 ml IV Total 360 ml Output Urine Total 500 ml . Laboratory Tests Test 11/23/17 20:38 11/24/17 02:50 11/24/17 14:07 11/25/17 08:40 Platelet Count 110 TH/MM3 109 TH/MM3 95 TH/MM3 63 TH/MM3 White Blood Count 7.8 TH/MM3 8.7 TH/MM3 7.5 TH/MM3 Red Blood Count 1.74 MIL/MM3 2.46 MIL/MM3 2.26 MIL/MM3 Hemoglobin 6.7 GM/DL 8.9 GM/DL 8.1 GM/DL Hematocrit 19.6 % 25.4 % 23.3 % Mean Corpuscular Volume 112.6 FL 103.0 FL 103.1 FL Mean Corpuscular Hemoglobin 38.4 PG 36.0 PG 35.7 PG Mean Corpuscular Hemoglobin Concent 34.1 % 34.9 % 34.6 % Red Cell Distribution Width 21.8 % 25.4 % 25.4 % Mean Platelet Volume 7.6 FL 8.2 FL 7.7 FL Neutrophils (%) (Auto) 66.9 % 67.7 % 70.3 % Lymphocytes (%) (Auto) 21.8 % 20.4 % 17.3 % Monocytes (%) (Auto) 10.2 % 11.0 % 11.1 % Eosinophils (%) (Auto) 0.7 % 0.7 % 1.0 % Basophils (%) (Auto) 0.4 % 0.2 % 0.3 % Neutrophils # (Auto) 5.2 TH/MM3 5.9 TH/MM3 5.2 TH/MM3 Lymphocytes # (Auto) 1.7 TH/MM3 1.8 TH/MM3 1.3 TH/MM3 Monocytes # (Auto) 0.8 TH/MM3 1.0 TH/MM3 0.8 TH/MM3 Eosinophils # (Auto) 0.1 TH/MM3 0.1 TH/MM3 0.1 TH/MM3 Basophils # (Auto) 0.0 TH/MM3 0.0 TH/MM3 0.0 TH/MM3 CBC Comment AUTO DIFF AUTO DIFF AUTO DIFF Differential Comment AUTO DIFF CONFIRMED FINAL DIFF MANUAL FINAL DIFF MANUAL Platelet Estimate LOW LOW Platelet Morphology Comment NORMAL NORMAL Stomatocytes 2+ Differential Total Cells Counted 100 100 Neutrophils % (Manual) 47 % 51 % Band Neutrophils % 20 % 30 % Lymphocytes % 22 % 8 % Monocytes % 10 % 11 % Eosinophils % 1 % Neutrophils # (Manual) 5.8 TH/MM3 6.1 TH/MM3 Nucleated Red Blood Cells 1 /100 WBC 1 /100 WBC Toxic Granulation 3+ 1+ Dohle Bodies PRESENT Basophilic Stippling FAINT [place] Bodies PRESENT PRESENT Target Cells 1+ Acanthocytes OCC Test 11/25/17 16:16 Laboratory Tests Test 11/23/17 20:38 11/24/17 02:50 11/25/17 08:40 Potassium Level 4.5 MEQ/L 3.1 MEQ/L 3.4 MEQ/L Phosphorus Level 2.2 MG/DL 1.9 MG/DL 1.6 MG/DL Iron Level 39 MCG/DL Ferritin 512 NG/ML Ammonia 41 MCMOL/L 25-Hydroxy Vitamin D Total 12.3 ng/ML Blood Urea Nitrogen 44 MG/DL 36 MG/DL Creatinine 1.05 MG/DL 1.03 MG/DL Random Glucose 141 MG/DL 124 MG/DL Total Protein 5.1 GM/DL 6.2 GM/DL Albumin 2.5 GM/DL 2.9 GM/DL Calcium Level 6.7 MG/DL 7.1 MG/DL Magnesium Level 1.7 MG/DL 1.5 MG/DL Alkaline Phosphatase 49 U/L 62 U/L Aspartate Amino Transf (AST/SGOT) 39 U/L 32 U/L Alanine Aminotransferase (ALT/SGPT) 13 U/L 13 U/L Total Bilirubin 0.5 MG/DL 0.7 MG/DL Sodium Level 144 MEQ/L 142 MEQ/L Chloride Level 106 MEQ/L 106 MEQ/L Carbon Dioxide Level 32.2 MEQ/L 29.6 MEQ/L Anion Gap 6 MEQ/L 6 MEQ/L Estimat Glomerular Filtration Rate 52 ML/MIN 53 ML/MIN Protein Corrected Calcium 7.7 MG/DL 7.6 MG/DL [id number] 220 mg/dL Microbiology Date/Time Source Procedure Growth Status 11/23/17 12:22 Blood Peripheral Aerobic Blood Culture - Preliminary NO GROWTH IN 2 DAYS Resulted 11/23/17 12:22 Blood Peripheral Anaerobic Blood Culture - Preliminary NO GROWTH IN 2 DAYS Resulted 11/23/17 12:10 Blood Peripheral Aerobic Blood Culture - Preliminary NO GROWTH IN 2 DAYS Resulted 11/23/17 12:10 Blood Peripheral Anaerobic Blood Culture - Preliminary NO GROWTH IN 2 DAYS Resulted 11/23/17 13:45 Sputum Expectorated Sputum Gram Stain - Final Complete 11/23/17 13:45 Sputum Expectorated Sputum Sputum Culture - Final HEAVY GROWTH NORMAL RESPIRATORY [place] Complete 11/23/17 13:45 Urine Clean Catch Urine Culture - Preliminary Yeast-Id To Follow Resulted Imaging Last Impressions Chest X-Ray 11/25/17 0000 Signed Impressions: Service Date/Time: Saturday, November 25, 2017 11:40 - CONCLUSION: 1. Tip of endotracheal tube just above the charley. 2. Tip of nasogastric tube in the distal esophagus. 3. COPD 4. Bibasilar opacity characteristic of airspace disease and possibly small effusions. Fernando Shaver MD Abdomen X-Ray 11/23/17 0000 Signed Impressions: Service Date/Time: Thursday, November 23, 2017 06:14 - CONCLUSION: Nonobstructive bowel gas pattern without significant change. Ousmane Aguilar MD Brain MRI 11/20/17 1409 Signed Impressions: Service Date/Time: October 20:54 - CONCLUSION: 1. No acute intracranial abnormality. Right-sided mastoid air cell disease. No recent infarct, mass effect or shift. Roby Brito MD Lower Extremity Ultrasound 11/20/17 0000 Signed Impressions: Service Date/Time: October 11:48 - CONCLUSION: 1. No evidence of DVT. 2. Small right Stovall's cyst. Keven Lake MD Head CT 11/20/17 0000 Signed Impressions: Service Date/Time: October 11:29 - CONCLUSION: 1. Focal decreased attenuation involving the right armin consistent with lacunar infarct or ischemic change. 2. No acute hemorrhage, midline shift or extra-axial fluid collections. 3. Small fluid level within the right sphenoid sinus. Swapnil Saldaña MD Chest CT 11/19/17 0000 Signed Impressions: Service Date/Time: Sunday, November 19, 2017 17:10 - CONCLUSION: Minimal consolidative changes as above Small pleural effusions. Luis A Castillo MD FACR Abdomen/Pelvis CT 11/19/17 0000 Signed Impressions: Service Date/Time: Sunday, November 19, 2017 17:10 - CONCLUSION: Trace ascites or subcapsular fluid around liver Prominent gallbladder Luis A Castillo MD FACR Abdomen Ultrasound 11/17/17 0000 Signed Impressions: Service Date/Time: Friday, November 17, 2017 08:01 - CONCLUSION: Negative for occlusion or significant stenosis. Luis A Castillo MD FACR Physical Exam CONSTITUTIONAL/GENERAL: This is an adequately nourished patient, in some visible apparent distress. On vent, TUBES/LINES/DRAINS: SKIN: No jaundice, rashes, or lesions. Skin temperature appropriate. Not diaphoretic. EYES: Pupils equal and round and reactive. Extraocular motions intact. No scleral icterus. No injection or drainage. Fundi not examined. ENT: Hearing grossly normal.Orally intubated CARDIOVASCULAR: Regular rate and rhythm without murmurs, gallops, or rubs. No JVD. Peripheral pulses symmetric. RESPIRATORY/CHEST: Symmetric, unlabored respirations. Clear to auscultation. Breath sounds equal bilaterally. No wheezes, rales, or rhonchi. GASTROINTESTINAL: Abdomen soft, non-tender, nondistended. No hepato-splenomegaly , or palpable masses. No guarding. Bowel sounds present. Incontinent of dark liquid stool, large volume GENITOURINARY: Without palpable bladder distension. Valencia catheter in place with clear yellow urine MUSCULOSKELETAL: Extremities without clubbing, cyanosis, or edema. No joint tenderness or effusion noted. No calf tenderness. No mottling or clubbing. LYMPHATICS: No palpable cervical or supraclavicular adenopathy. NEUROLOGICAL: lethargic to obtunded Moves all extremities. NOt following PSYCHIATRIC: agitated Assessment & Plan Remarks Fever, low grade - ? source UTI? - funguria Admitted with ileus, now having diarrhea aftr with laxative treatment - c.diff negative GIB agree with ashwin to scope dc vancomycin dc flagyl repea sputum clx startt fluconaozl chk blood clx Discussed Condition With Mary Anne Ellis MD Nov 25, 2017 17:03
[2017-11-25 17:06] LABS: HEMATOCRIT 20.3 % (35.0-46.0); HEMOGLOBIN 6.9 GM/DL (11.6-15.3)
[2017-11-25] MEDS: FLUCONAZOLE 200 MG PREMIX BAG 100 ML IV SCH (17:51)
[2017-11-25] MEDS ORDERED: PEG (High)/E-LYTE SOLN 4000 ML BTL OG-TUBE ONE (19:00)
[2017-11-25] MEDS: FAT EMULSION 20% INJ 250 ML (@10 mls/hr) IV SCH (21:09)
[2017-11-25] MEDS: CLINIMIX 4.25/5 (Cust.Renal Periph) 1000 mL- </= 42 mls/hr IV SCH ×8 (21:09)
[2017-11-25 21:36] LABS: HEMATOCRIT 22.6 % (35.0-46.0); HEMOGLOBIN 7.7 GM/DL (11.6-15.3)
[2017-11-26] VITALS (23 sets, daily range): BP systolic 85–123; BP diastolic 48–59; PULSE 82–100; RESP 14–25; TEMP 98.5–99.6; O2SAT 97–100
[2017-11-26 02:28] LABS: HEMATOCRIT 29.5 % (35.0-46.0); HEMOGLOBIN 10.1 GM/DL (11.6-15.3); MEAN CELL VOLUME 98.9 FL (80.0-100.0); MEAN CORPUSCULAR HEMOGLOBIN 33.8 PG (27.0-34.0); MEAN CORPUSCULAR HGB CONC 34.2 % (32.0-36.0); MEAN PLATELET VOLUME 8.2 FL (7.0-11.0); PLATELET COUNT 46 TH/MM3 (150-450); RED BLOOD COUNT 2.98 MIL/MM3 (4.00-5.30); RED CELL DISTRIBUTION WIDTH 29.2 % (11.6-17.2)
[2017-11-26 02:53] LABS: ALBUMIN 2.4 GM/DL (3.4-5.0); BICARBONATE 28.1 MEQ/L (21.0-32.0); CALCIUM-PROTEIN CORRECTED 7.8 MG/DL (8.5-10.1); CREATININE 0.98 MG/DL (0.50-1.00); MAGNESIUM 1.4 MG/DL (1.5-2.5); TOTAL BILIRUBIN ADULT 1.1 MG/DL (0.2-1.0); TOTAL PROTEIN 5.6 GM/DL (6.4-8.2)
[2017-11-26 04:00] LABS: BANDS 17 % (0-6); CORRECTED NUCLEATED RBC 4 /100 WBC (0-0); LYMPHOCYTES 11 % (9-44); MONOCYTES 6 % (0-8); NEUTROPHIL # MANUAL DIFF 6.6 TH/MM3 (1.8-7.7); NUCLEATED RED BLOOD CELL 4 (0-0); POLYS (SEG NEUTROPHILS) 65 % (16-70)
[2017-11-26] MEDS: CHLORHEXIDINE GLUCONATE 2 % 1 PACK (2 CLOTHS) TOP SCH (04:00)
[2017-11-26 04:01] LABS: BURR CELLS 1+ (NORMAL); HOWELL-JOLLY BODIES PRESENT (NONE SEEN); OVALOCYTES 1+ (NORMAL); TOXIC GRANULATION 1+ (NORMAL)
[2017-11-26] MEDS: DILTIAZEM HCL 60 MG TAB PO SCH ×5 (05:10→22:30)
--- NOTE | 2017-11-26 05:45 | RADRPT ---
EXAM DATE/TIME: 11/26/2017 04:09 [facility] COMPARISON: CHEST SINGLE AP, November 25, 2017, 11:40. INDICATIONS : Short of breath. MEDICAL HISTORY : Hypertension. Chronic obstructive pulmonary disease. Arthritis. Anemia. Chronic ITP. SURGICAL HISTORY : Splenectomy. section. Bone marrow bx. ENCOUNTER: Subsequent ACUITY: 1 week PAIN SCORE: 0/10 LOCATION: Bilateral chest FINDINGS: A single view of the chest demonstrates hyperaeration and bilateral hazy opacities. Heart and the upp er limits of normal in size. Endotracheal tube unchanged. The gastric tube tip in stomach.. Osseous structures are intact. CONCLUSION: 1. Hyperinflation and bilateral hazy opacities, unchanged. Carlos Wang MD on November 26, 2017 at 5:41 Board Certified Radiologist. This report was verified electronically.
[2017-11-26] MEDS: CEFEPIME INJ 2,000 MG in SODIUM CHLORIDE 0.9% INJ 100 ML IV SCH ×2 (07:28→21:11)
[2017-11-26] MEDS: MAGNESIUM SULFATE INJ 2 GM in SODIUM CHLORIDE 0.9% INJ 96 ML IV PRN (07:43)
[2017-11-26] MEDS: LACTULOSE SYRUP 20 GM/30 ML CUP PO SCH ×3 (08:22→17:45)
[2017-11-26] MEDS: POTASSIUM PHOSPHATE MONOBASIC 500 MG TAB PO PRN ×2 (08:22→12:24)
[2017-11-26] MEDS: SODIUM CHLORIDE 0.9% FLUSH 10 ML FLUSH IV FLUSH SCH ×2 (08:22→21:10)
[2017-11-26] MEDS: METOPROLOL TARTRATE 50 MG TAB PO SCH ×2 (08:22→21:10)
[2017-11-26] MEDS: RIFAXIMIN 550 MG TAB PO SCH ×2 (08:22→21:10)
[2017-11-26] MEDS: FAMOTIDINE 20 MG TAB PO SCH ×2 (08:22→21:10)
[2017-11-26] MEDS: SODIUM CHLORIDE 0.9% FLUSH 10 ML FLUSH IV FLUSH PRN (08:22)
[2017-11-26] MEDS: DOCUSATE SODIUM 50 MG/SENNA 8.6 MG TAB PO SCH ×2 (08:24→21:00)
[2017-11-26] MEDS: TIOTROPIUM BROMIDE 18 MCG INH INH SCH (08:24)
[2017-11-26] MEDS: PROPOFOL 1000 MG/100 ML IV PRN ×3 (09:09→20:23)
--- NOTE | 2017-11-26 09:13 | HHI.PR ---
cc: Leo Dunham MD Subjective Subjective Notes Now intubated at bedside RN reports maroon colored stool overnight Objective Vitals/I&O Vital Signs Date Time Temp Pulse Resp B/P (MAP) Pulse Ox O2 Delivery O2 Flow Rate FiO2 11/26/17 06:00 100 11/26/17 04:05 99 40 11/26/17 04:00 98.9 18 98/52 (67) 11/25/17 11:30 Mechanical Ventilator 11/25/17 07:55 6.00 Labs Laboratory Tests Test 11/25/17 12:10 11/25/17 13:30 11/25/17 16:16 11/25/17 21:20 Blood Gas Puncture Site LT BRACHIAL Blood Gas Patient Temperature 98.6 Blood Gas HCO3 31 Blood Gas Base Excess 5.6 Blood Gas Oxygen Saturation 94 Arterial Blood pH 7.37 Arterial Blood Partial Pressure CO2 54 Arterial Blood Partial Pressure O2 91 Arterial Blood Oxygen Content 12.4 Arterial Blood Carboxyhemoglobin 1.6 Arterial Blood Methemoglobin 1.4 Blood Gas Hemoglobin 9.3 Oxygen Delivery Device VENTILATOR Blood Gas Ventilator Setting Blood Gas Inspired Oxygen 40 Vancomycin Level Trough 10.5 Hemoglobin 6.9 7.7 Hematocrit 20.3 22.6 Test 11/26/17 01:55 White Blood Count 8.0 Red Blood Count 2.98 Hemoglobin 10.1 Hematocrit 29.5 Mean Corpuscular Volume 98.9 Mean Corpuscular Hemoglobin 33.8 Mean Corpuscular Hemoglobin Concent 34.2 Red Cell Distribution Width 29.2 Platelet Count 46 Mean Platelet Volume 8.2 CBC Comment AUTO DIFF Differential Total Cells Counted 100 Neutrophils % (Manual) 65 Band Neutrophils % 17 Lymphocytes % 11 Monocytes % 6 Eosinophils % 1 Neutrophils # (Manual) 6.6 Nucleated Red Blood Cells 4 Differential Comment FINAL DIFF MANUAL Toxic Granulation 1+ Platelet Estimate LOW Platelet Morphology Comment NORMAL Ovalocytes 1+ Ybarra-Ruthton Bodies PRESENT Heaven Cells 1+ Blood Urea Nitrogen 33 Creatinine 0.98 Random Glucose 92 Total Protein 5.6 Albumin 2.4 Calcium Level 7.0 Phosphorus Level 2.0 Magnesium Level 1.4 Alkaline Phosphatase 56 Aspartate Amino Transf (AST/SGOT) 27 Alanine Aminotransferase (ALT/SGPT) 10 Total Bilirubin 1.1 Sodium Level 144 Potassium Level 3.5 Chloride Level 108 Carbon Dioxide Level 28.1 Anion Gap 8 Estimat Glomerular Filtration Rate 56 Protein Corrected Calcium 7.8 Triglycerides Level 113 Date/Time Source Procedure Growth Status 11/23/17 12:22 Blood Peripheral Aerobic Blood Culture - Preliminary NO GROWTH IN 2 DAYS Resulted 11/23/17 12:22 Blood Peripheral Anaerobic Blood Culture - Preliminary NO GROWTH IN 2 DAYS Resulted 11/18/17 14:25 Stool Stool Stool Occult Blood (KIM) - Final HEMOCCULT POSITIVE Complete 11/25/17 17:45 Sputum Endotracheal Gram Stain Pending Received 11/25/17 17:45 Sputum Endotracheal Sputum Culture Pending Received 11/23/17 13:45 Urine Clean Catch Urine Culture - Preliminary Yeast-Id To Follow Resulted Radiology Last 48 hours Impressions Abdomen/Pelvis CT 11/17/17 0000 Signed Impressions: Service Date/Time: Friday, November 17, 2017 01:08 - CONCLUSION: 1. Distended stomach. 2. Fluid distended colon without dilated loops of small bowel. Víctor Bates MD Abdomen X-Ray 11/17/17 0000 Signed Impressions: Service Date/Time: Friday, November 17, 2017 07:37 - CONCLUSION: No bowel obstruction, ileus or perforation. Swapnil Saldaña MD Abdomen Ultrasound 11/17/17 0000 Signed Impressions: Service Date/Time: Friday, November 17, 2017 08:01 - CONCLUSION: Negative for occlusion or significant stenosis. Luis A Castillo MD FACR Chest X-Ray 11/16/17 3126 Signed Impressions: Service Date/Time: Thursday, November 16, 2017 23:51 - CONCLUSION: Hyperaerated lungs. No infiltrates seen. Víctor Bates MD Cardiovascular: Regular Lungs: Clear Abdomen: Other (grimacing with palpation of abdomen ) Extremities: No edema Narrative Exam OG to LIWS Rectal tube in place A/P Assessment and Plan 67 year old female with abdominal pain; lactic acidosis -Intubated post EGD---CCM following -Continued GI workup ---s/p EGD shows erosive gastritis 2nd to NG injury?? -Bedside colonoscopy planed for today -Hmg 10.1 -Will continue to peripherally follow; Non surgical management Attending Statement patient seen at bedside currently intubated await coloscopy results will follow intermittently Attestation The exam, history, and the medical decision-making described in the above note were completed with the assistance of the mid-level provider. I reviewed and agree with the findings presented. I attest that I had a [id number] encounter with the patient on the same day, and personally performed and documented my assessment and findings in the medical record. Nicky Neil/First Lissa MORA Nov 26, 2017 09:13 Leo Dunham MD Nov 27, 2017 15:55
[2017-11-26] MEDS: RESP: ALBUTEROL 2.5 MG/IPRATROPIUM 0.5 MG NEB (PRN) INH ×2 (09:30→23:05)
[2017-11-26] MEDS: RESP: BUDESONIDE 0.25 MG/2 ML NEB NEB SCH (09:30)
[2017-11-26] MEDS ORDERED: ROCURONIUM INJ 50 MG/5 ML SYRINGE IV PUSH ONE (12:00)
[2017-11-26] MEDS ORDERED: LIDOCAINE HCL 1% PF 5 ML SYRINGE OTHER ONE (12:00)
[2017-11-26] MEDS ORDERED: PROPOFOL 200 MG/20 ML AMP IV ONE (12:00)
--- NOTE | 2017-11-26 12:26 | PD.ONC.PN ---
Subjective Subjective Remarks Afebrile overnight Resting in bed, intubated and sedated Per FINANCIAL BUSINESS ANALYST, she has had significant stool via rectal bag; it appears to be more so dark than maroon Objective Data Date Time Temp Pulse Resp B/P (MAP) Pulse Ox O2 Delivery O2 Flow Rate FiO2 11/26/17 12:03 98 35 11/26/17 12:00 40 11/26/17 12:00 93 11/26/17 12:00 98.5 93 15 87/49 (62) 98 11/26/17 11:00 93 14 85/48 (60) 98 11/26/17 10:00 93 17 108/53 (71) 99 11/26/17 10:00 93 11/26/17 09:32 100 35 11/26/17 09:00 99 25 123/58 (79) 98 11/26/17 08:00 40 11/26/17 08:00 98 11/26/17 08:00 98.8 98 18 116/59 (78) 100 11/26/17 07:00 100 20 113/59 (77) 100 11/26/17 06:00 100 11/26/17 04:05 99 40 11/26/17 04:00 99 11/26/17 04:00 40 11/26/17 04:00 98.9 99 18 98/52 (67) 100 11/26/17 02:00 96 11/26/17 00:01 100 40 11/26/17 00:00 86 11/26/17 00:00 40 11/26/17 00:00 99.0 86 16 103/51 (68) 100 11/25/17 23:20 98.7 89 14 85/52 100 11/25/17 22:00 91 11/25/17 20:45 100 40 11/25/17 20:00 40 11/25/17 20:00 98.7 100 21 128/59 (82) 100 11/25/17 20:00 100 11/25/17 18:27 98.7 98 15 91/50 100 11/25/17 18:08 97.7 101 14 106/56 100 11/25/17 18:00 100 11/25/17 17:00 99 16 92/51 (65) 100 11/25/17 16:12 100 40 11/25/17 16:00 97.7 101 27 96/48 (64) 100 11/25/17 16:00 40 11/25/17 16:00 101 11/25/17 15:00 99 27 115/54 (74) 100 11/25/17 14:00 91 11/25/17 14:00 91 25 128/72 (90) 100 11/25/17 13:00 96 24 87/48 (61) 100 11/26/17 11/26/17 11/26/17 07:00 15:00 23:00 Intake Total 640 ml 235.1 ml Output Total 1700 ml Balance -1060 ml 235.1 ml Result Diagram: 11/26/17 0155 11/26/17 0155 Laboratory Results Laboratory Tests Test 11/25/17 13:30 11/25/17 16:16 11/25/17 21:20 11/26/17 01:55 Vancomycin Level Trough 10.5 MCG/ML Hemoglobin 6.9 GM/DL 7.7 GM/DL 10.1 GM/DL Hematocrit 20.3 % 22.6 % 29.5 % White Blood Count 8.0 TH/MM3 Red Blood Count 2.98 MIL/MM3 Mean Corpuscular Volume 98.9 FL Mean Corpuscular Hemoglobin 33.8 PG Mean Corpuscular Hemoglobin Concent 34.2 % Red Cell Distribution Width 29.2 % Platelet Count 46 TH/MM3 Mean Platelet Volume 8.2 FL CBC Comment AUTO DIFF Differential Total Cells Counted 100 Neutrophils % (Manual) 65 % Band Neutrophils % 17 % Lymphocytes % 11 % Monocytes % 6 % Eosinophils % 1 % Neutrophils # (Manual) 6.6 TH/MM3 Nucleated Red Blood Cells 4 /100 WBC Differential Comment FINAL DIFF MANUAL Toxic Granulation 1+ Platelet Estimate LOW Platelet Morphology Comment NORMAL Ovalocytes 1+ Ybarra-Van Bodies PRESENT Bailey Cells 1+ Blood Urea Nitrogen 33 MG/DL Creatinine 0.98 MG/DL Random Glucose 92 MG/DL Total Protein 5.6 GM/DL Albumin 2.4 GM/DL Calcium Level 7.0 MG/DL Phosphorus Level 2.0 MG/DL Magnesium Level 1.4 MG/DL Alkaline Phosphatase 56 U/L Aspartate Amino Transf (AST/SGOT) 27 U/L Alanine Aminotransferase (ALT/SGPT) 10 U/L Total Bilirubin 1.1 MG/DL Sodium Level 144 MEQ/L Potassium Level 3.5 MEQ/L Chloride Level 108 MEQ/L Carbon Dioxide Level 28.1 MEQ/L Anion Gap 8 MEQ/L Estimat Glomerular Filtration Rate 56 ML/MIN Protein Corrected Calcium 7.8 MG/DL Triglycerides Level 113 MG/DL Culture Results Microbiology Date/Time Source Procedure Growth Status 11/23/17 12:22 Blood Peripheral Aerobic Blood Culture - Preliminary NO GROWTH IN 3 DAYS Resulted 11/23/17 12:22 Blood Peripheral Anaerobic Blood Culture - Preliminary NO GROWTH IN 3 DAYS Resulted 11/25/17 17:45 Sputum Endotracheal Gram Stain - Final Resulted 11/25/17 17:45 Sputum Endotracheal Sputum Culture Pending Resulted 11/23/17 13:45 Sputum Expectorated Sputum Gram Stain - Final Complete 11/23/17 13:45 Sputum Expectorated Sputum Sputum Culture - Final HEAVY GROWTH NORMAL RESPIRATORY [place] Complete 11/23/17 13:45 Urine Clean Catch Urine Culture - Preliminary Yeast-Id To Follow Resulted Imaging Studies Last 24 hours Impressions Chest X-Ray 11/26/17 0000 Signed Impressions: Service Date/Time: Sunday, November 26, 2017 04:09 - CONCLUSION: 1. Hyperinflation and bilateral hazy opacities, unchanged. Carlos Wang MD Administered Medications Medications (Trade) Dose Ordered Sig/Colton Route PRN Reason Start Time Stop Time Status Last Admin Dose Admin Sodium Chloride (NS Flush) 2 ml UNSCH PRN IV FLUSH FLUSH AFTER USING IV ACCESS 11/17/17 06:45 11/26/17 08:22 Sodium Chloride (NS Flush) 2 ml BID IV FLUSH 11/17/17 09:00 11/26/17 08:22 Acetaminophen (Tylenol) 650 mg Q6H PRN PO PAIN 1-10 AND/OR FEVER >101F 11/17/17 06:45 11/24/17 08:24 Albuterol/ Ipratropium (Duoneb Neb) 1 ampule Q4HR NEB PRN INH WHEEZING 11/17/17 06:45 11/26/17 09:30 Miscellaneous Information 1 Q361D XX 11/17/17 06:45 11/17/17 06:45 Chlorhexidine Gluconate (Chlorhexidine 2% Cloth) Taper DAILY@04 TOP 11/18/17 04:00 11/14/18 03:59 11/24/17 04:00 Senna/Docusate Sodium (Rita-Colace) 1 tab BID PO 11/17/17 09:00 11/25/17 21:09 Sennosides (Senokot) 17.2 mg Q12H PRN PO Moderate constipation 11/17/17 06:45 11/17/17 09:11 Lactulose (Lactulose Liq) 30 ml DAILY PRN PO SEVERE CONSITIPATION 11/17/17 06:45 11/17/17 09:11 Albuterol Sulfate (Albuterol Neb) 2.5 mg Q4HR NEB PRN NEB SHORTNESS OF BREATH 11/17/17 07:45 11/25/17 20:45 Budesonide (Pulmicort Respule Neb) 0.25 mg DAILY NEB NEB 11/17/17 08:00 11/26/17 09:30 Tiotropium [place] (Spiriva Inh) 18 mcg DAILY INH 11/17/17 09:00 11/25/17 08:14 Argatroban 250 mg/ Sodium Chloride 252.5 ml @ 1.92 mls/hr TITRATE PRN IV aPTT < 50 11/18/17 12:45 Future Hold 11/22/17 15:20 Sodium Chloride 5.5 meq/Sodium Acetate 29.5 meq/ Potassium Chloride 20 meq/ Magnesium Chloride 5 meq/ Calcium Chloride 4.5 meq/ Multivitamins 10 ml/Folic Acid 1 mg/Amino Acids/ Dextrose 1,042.1719 ml @ 42 mls/hr Q24H IV 11/19/17 20:00 11/25/17 21:09 Fat Emulsion Intravenous 250 ml @ 10 mls/hr Q24H IV 11/19/17 20:00 11/25/17 21:09 Diltiazem HCl (Cardizem) 60 mg Q6HR PO 11/20/17 12:00 11/26/17 05:13 Rifaximin (Xifaxan) 550 mg BID PO 11/20/17 21:00 11/26/17 08:22 Lactulose (Lactulose Liq) 15 ml TID PO 11/21/17 09:00 11/26/17 08:22 Potassium Chloride 100 ml @ 50 mls/hr Q2H PRN IV For Potassium 2.8 - 3.2 mEq/L 11/21/17 13:30 11/24/17 13:14 Potassium Bicarb/ Potassium Chloride (K-Lyte Cl Eff) 50 meq UNSCH PRN PO For Potassium 3.3 - 3.5 mEq/L 11/21/17 13:30 11/21/17 13:47 Potassium Chloride 100 ml @ 50 mls/hr Q2H PRN IV For Potassium 3.3 - 3.5 mEq/L 11/21/17 13:30 11/22/17 10:08 Magnesium Sulfate 2 gm/Sodium Chloride 100 ml @ 50 mls/hr UNSCH PRN IV For Magnesium 1.2 - 1.6 mg/dL 11/21/17 13:30 11/26/17 07:43 Potassium Phosphate (K-Phos) 2,000 mg Q4H PRN PO For Phosphorus < 2.5 mg/dL 11/21/17 13:30 11/26/17 08:22 Sodium Phosphate 30 mmol/Sodium Chloride 250 ml @ 42 mls/hr UNSCH PRN IV For Phosphorus < 2.5 mg/dL 11/21/17 13:30 11/24/17 02:29 Potassium Phosphate 30 mmol/ Sodium Chloride 260 ml @ 42 mls/hr UNSCH PRN IV SEE LABEL COMMENTS 11/21/17 13:30 11/25/17 11:55 Hydralazine HCl (Apresoline Inj) 10 mg Q4H PRN IV PUSH SYS BP GREATER THAN 160 MMHG 11/21/17 16:45 11/22/17 02:07 Metoprolol Tartrate (Lopressor Inj) 5 mg Q5M PRN IV PUSH HR>100 11/22/17 00:00 11/22/17 00:55 Hydromorphone HCl (Dilaudid Pf Inj) 0.5 mg Q4H PRN IV pain >5/10 11/22/17 02:45 11/25/17 05:36 Metoprolol Tartrate (Lopressor) 50 mg Q12HR PO 11/22/17 09:00 11/25/17 21:09 Famotidine (Pepcid) 10 mg BID PO 11/24/17 21:00 11/26/17 08:22 Cefepime HCl 2000 mg/Sodium Chloride 100 ml @ 200 mls/hr Q12H IV 11/24/17 20:00 11/26/17 07:28 Propofol 100 ml @ 2.04 mls/hr TITRATE PRN IV Sedation 11/25/17 12:15 11/26/17 09:09 Fentanyl Citrate 250 ml @ 5 mls/hr TITRATE PRN IV SEDATION 11/25/17 14:30 11/25/17 14:38 Fluconazole/ Sodium Chloride 100 ml @ 100 mls/hr Q24H IV 11/25/17 18:00 11/25/17 17:51 Objective Remarks GENERAL: Elderly female resting in bed intubated and sedated SKIN: Warm and dry. Multiple scattered bruises HEAD: Normocephalic. EYES: No injection or drainage. NECK: Supple, trachea midline. CARDIOVASCULAR: Regular rate and rhythm without murmurs. RESPIRATORY: Mechanically ventilated. Clear anteriorly. GASTROINTESTINAL: Abdomen soft. EXTREMITIES: No cyanosis NEUROLOGICAL: Sedated Assessment/Plan Problem List: (1) Idiopathic thrombocytopenia purpura ICD Codes: D69.3 - Immune thrombocytopenic purpura Status: Acute Plan: --platelets may be lower due to consumption and antibiotics. --had splenectomy in 2009. --was treated with Nplate in the past with good response. --per , patient's baseline is between 50-70K and she has not required treatment for ITP since spleen removal several years ago. --platelet count has been fluctuating between 40,000-70,000. --no indication to start treatment for the idiopathic thrombocytopenic purpura at this point. (2) Arterial occlusion ICD Codes: I70.90 - Unspecified atherosclerosis Plan: 11/25: EGD showed erosive gastritis of the cardia. will continue to hold anticoagulation and watch H/H for now. 11/23: Argatroban placed on hold due to possible GI bleed --started on Argatroban on 11/18, tolerated well, no evidence of bleeding despite low platelet. No evidence of recurrent clot. 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 --had embolectomy in September of this year. then started on Pradaxa, but later switched to Xarelto. --presented with abdominal pain and could have ischemic bowel (3) Abdominal pain ICD Codes: R10.9 - Unspecified abdominal pain Status: Acute Plan: --EGD on 11/25 showed erosive gastritis of the cardia, possibly related to NGT injury. NGT was removed during procedure. --presented with acute severe abdominal pain. --CT did not show any bowel obstruction. --Ultrasound also negative for occlusion or stenosis. 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 h/o Chronic anemia. Chronic back pain. Multiple compression fractures. Chronic obstructive pulmonary disease. Hypertension. Left popliteal arterial occlusion. Plan 1. Colonoscopy planned for later today 2. Check CBC in afternoon to evaluate stability of hemoglobin 3. If it appears that she is continuing to bleed we will transfuse packed red blood cells 4. Await results of CBC, outcome of colonoscopy. Attending Statement The exam, history, and the medical decision-making described in the above note were completed with the assistance of the mid-level provider. I reviewed and agree with the findings presented. I attest that I had a [id number] encounter with the patient on the same day, and personally performed and documented my assessment and findings in the medical record. Pt remains intubated after the EGD. She grimaces when I palpate her LLQ. Nursing staff report blood in rectal tube. She is awaiting colonoscopy. Continue to monitor CBC. Will transfuse platelet if she has active bleeding. Problem Qualifiers (1) Abdominal pain: Qualified Codes: R10.84 - Generalized abdominal pain Cortney Mahmood Nov 26, 2017 12:26 Braden Luong MD Nov 26, 2017 16:37
[2017-11-26 13:50] LABS: AUTOMATED NEUTROPHIL # 5.6 TH/MM3 (1.8-7.7); BASOPHIL % 0.4 % (0.0-2.0); EOSINOPHIL # 0.1 TH/MM3 (0-0.4); EOSINOPHIL % 0.7 % (0.0-4.0); HEMATOCRIT 25.4 % (35.0-46.0); HEMOGLOBIN 8.8 GM/DL (11.6-15.3); LYMPH % 17.4 % (9.0-44.0); LYMPHOCYTE # 1.3 TH/MM3 (1.0-4.8); MEAN CELL VOLUME 97.4 FL (80.0-100.0); MEAN CORPUSCULAR HEMOGLOBIN 33.7 PG (27.0-34.0); MEAN CORPUSCULAR HGB CONC 34.6 % (32.0-36.0); MEAN PLATELET VOLUME 8.1 FL (7.0-11.0); MONO % 7.7 % (0.0-8.0); MONOCYTE # 0.6 TH/MM3 (0-0.9); NEUT % 73.8 % (16.0-70.0); PLATELET COUNT 37 TH/MM3 (150-450); RED BLOOD COUNT 2.61 MIL/MM3 (4.00-5.30); RED CELL DISTRIBUTION WIDTH 28.5 % (11.6-17.2); WHITE BLOOD COUNT 7.6 TH/MM3 (4.0-11.0)
[2017-11-26 14:11] LABS: INTERNATIONAL NORMALIZED RATIO 1.1 RATIO; PROTHROMBIN TIME - PATIENT 10.7 SEC (9.8-11.6)
[2017-11-26 14:16] LABS: ALBUMIN 2.2 GM/DL (3.4-5.0); BICARBONATE 27.5 MEQ/L (21.0-32.0); CALCIUM 6.6 MG/DL (8.5-10.1); CREATININE 1.07 MG/DL (0.50-1.00); MAGNESIUM 1.9 MG/DL (1.5-2.5); PHOSPHORUS 1.8 MG/DL (2.5-4.9); TOTAL BILIRUBIN ADULT 0.6 MG/DL (0.2-1.0); TOTAL PROTEIN 5.5 GM/DL (6.4-8.2)
[2017-11-26 14:26] LABS: CALCIUM-PROTEIN CORRECTED 7.4 MG/DL (8.5-10.1)
[2017-11-26] MEDS: fentaNYL DRIP 250 ML IV PRN (14:57)
[2017-11-26] MEDS: SODIUM PHOSPHATE INJ 30 MMOL in SODIUM CHLOR 0.9% 250 ML INJ 240 ML IV PRN (15:07)
--- NOTE | 2017-11-26 15:11 | HHI.CCPN ---
Subjective Remarks/Hospital Course This is a 67-year-old female that presented to [facility], by private transportation for evaluation of severe abdominal pain. Patient states of the past week she has had constipation so last evening took laxatives ( Senokot) x 3 days, and then today had large bowel movement multiple times with development of severe lower abdominal pain. Patient had subsequently noted some abdominal distention. Patient states her abdomen is exquisitely tender with any movement. Patient also complains of some epigastric pain. 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 No report of hematemesis or coffee-ground emesis. Patient states after bowel movements no report of melena or hematochezia. Patient rates her abdominal pain 10/10 in intensity, without relief of narcotics. The patient was transferred to [facility] , critical care medicine was consulted. Subjective: 11/18: Overnight the patient was known to be oliguric, the patient received approximately 5 L of normal saline , and 500 cc of 5% albumin during the night. NG tube output approximately 700 cc since admission. The patient was noted to be mildly confused this a.m. and progressively worsened. O2 saturation was 100% ,stat ABGs performed, metabolic acidosis with a bicarbonate level of 16. Patient received 2 A of sodium bicarbonate and bicarbonate infusion was initiated. Patient also was noted to be hypocalcemic this a.m. and received 2 g of calcium gluconate. The patient was started on Argatroban infusion after discussion with Dr. Howell, plan for endoscopy tomorrow . The patient was previously on Xarelto for DVT prophylaxis.Repeat labs performed early this afternoon revealed hemoglobin of 6.7, 1 unit of PRBC being transfused. She required restraints, for patient safety. Repeat labs pending this evening posttransfusion. 11/19: Afebrile. Last evening the patient became more confused metabolic acidosis, placed on sodium bicarbonate infusion, now corrected. Patient alert, following commands. Sodium bicarbonate infusion discontinued. Patient noted to be severely anemic with hemoglobin of 6.2 received 1 unit of PRBCs, last hemoglobin 9.4, stable. Continued serial monitoring of H&H labs pending this a.m.. Patient noted to have improvement in urine output overnight. EGD placed on hold. 11/20 No events overnight. Afebrile, on 3L oxygen. 11/21 Patient is on 2L oxygen. MRI brain last night showed no acute abnormalities. Afebrile. Lethargic 11/22 Patient is on 3L oxygen. Renal function is improving with Cr: 1.47 from 1.77. On Argatroban drip. 11/23 No events overnight, On Argatroban drip. Cr: 1.16 from 1.47. 11/24 Patient is more awake, off Argatroban drip, T:100.3. 1u PRBC ordered for Hgb 6.7 this morning. 11/25 Patient is on 50% VM with good sats. Afebrile. 11/26: Remains orally intubated on mechanical ventilation, awaiting colonoscopy. Objective Vital Signs Date Time Temp Pulse Resp B/P (MAP) Pulse Ox O2 Delivery O2 Flow Rate FiO2 11/26/17 14:00 91 11/26/17 12:03 98 35 11/26/17 12:00 98.5 15 87/49 (62) 11/25/17 11:30 Mechanical Ventilator 11/25/17 07:55 6.00 Intake and Output 11/26/17 11/26/17 11/26/17 07:59 15:59 23:59 Intake Total 625 ml 250.1 ml Output Total 1700 ml Balance -1075 ml 250.1 ml Result Diagram: 11/26/17 1300 11/26/17 1300 Imaging Last Impressions Chest X-Ray 11/23/17 0000 Signed Impressions: Service Date/Time: Thursday, November 23, 2017 10:56 - CONCLUSION: Small right pleural effusion. Scattered bibasilar atelectasis is noted. Swapnil Saldaña MD Abdomen X-Ray 11/23/17 0000 Signed Impressions: Service Date/Time: Thursday, November 23, 2017 06:14 - CONCLUSION: Nonobstructive bowel gas pattern without significant change. Ousmane Aguilar MD Brain MRI 11/20/17 1409 Signed Impressions: Service Date/Time: October 20:54 - CONCLUSION: 1. No acute intracranial abnormality. Right-sided mastoid air cell disease. No recent infarct, mass effect or shift. Roby Brito MD Lower Extremity Ultrasound 11/20/17 0000 Signed Impressions: Service Date/Time: October 11:48 - CONCLUSION: 1. No evidence of DVT. 2. Small right Stovall's cyst. Keven Lake MD Head CT 11/20/17 0000 Signed Impressions: Service Date/Time: October 11:29 - CONCLUSION: 1. Focal decreased attenuation involving the right armin consistent with lacunar infarct or ischemic change. 2. No acute hemorrhage, midline shift or extra-axial fluid collections. 3. Small fluid level within the right sphenoid sinus. Swapnil Saldaña MD Chest CT 11/19/17 0000 Signed Impressions: Service Date/Time: Sunday, November 19, 2017 17:10 - CONCLUSION: Minimal consolidative changes as above Small pleural effusions. Luis A Castillo MD FACR Abdomen/Pelvis CT 11/19/17 0000 Signed Impressions: Service Date/Time: Sunday, November 19, 2017 17:10 - CONCLUSION: Trace ascites or subcapsular fluid around liver Prominent gallbladder Luis A Castillo MD FACR Abdomen Ultrasound 11/17/17 0000 Signed Impressions: Service Date/Time: Friday, November 17, 2017 08:01 - CONCLUSION: Negative for occlusion or significant stenosis. Luis A Castillo MD FACR Objective Remarks GENERAL: This is a pale thin female lying in bed in [facility] SKIN: Warm and dry. Pale HEAD: Atraumatic. Normocephalic. EYES: Pupils equal and round. No scleral icterus. No injection or drainage. ENT: No nasal bleeding or discharge. Mucous membranes pink and moist. NECK: Trachea midline. No JVD. CARDIOVASCULAR: Tachycardic rate, regular rhythm. RESPIRATORY: No accessory muscle use. Clear to auscultation. Breath sounds equal bilaterally GASTROINTESTINAL: Abdomen soft, non-tender, nondistended. No guarding. MUSCULOSKELETAL: Extremities without clubbing, cyanosis, or edema. No obvious deformities. NEUROLOGICAL: Sedated, arousable, orally intubated, moving all for x-rays. A/P Problem List: (1) Chronic anemia ICD Code: D64.9 - Anemia, unspecified Status: Acute (2) Idiopathic thrombocytopenia purpura ICD Code: D69.3 - Immune thrombocytopenic purpura Status: Acute (3) COPD (chronic obstructive pulmonary disease) ICD Code: J44.9 - Chronic obstructive pulmonary disease, unspecified Status: Acute (4) NISHANT (acute kidney injury) ICD Code: N17.9 - Acute kidney failure, unspecified Status: Acute (5) Chronic back pain ICD Code: M54.9 - Dorsalgia, unspecified; G89.29 - Other chronic pain Status: Acute (6) Hypertension ICD Code: I10 - Essential (primary) hypertension Status: Acute (7) Acute and chronic respiratory failure with hypoxia ICD Code: J96.21 - Acute and chronic respiratory failure with hypoxia Status: Acute (8) Abdominal pain ICD Code: R10.9 - Unspecified abdominal pain Status: Acute (9) Metabolic acidemia ICD Code: E87.2 - Acidosis Status: Acute Assessment and Plan Assessment Plan Plan by systems: Neurologic: Chronic back pain 10/03 impression fractures Neurochecks per ICU protocol MRI brain 11/21 no acute abnormalities 11/20 EEG: bihemispheric slowing. There are some intermixed slow sharp waves, but no distinct paroxysmal discharges. The pattern suggests severe bilateral abnormalities, either metabolic or structural Neuro is following- Dr. Hyman Dilaudid 0.5 mg every 4 hours when necessary for breakthrough pain scale 7-10 Tylenol 650 mg every 6 hours when necessary for pain or temperature greater than 100.5 Patient on home dose [place] for pain control will hold for now Respiratory: COPD Asthma Home O2 dependency Continue with oxygen keep sats >92% home O2 dependency Continue DuoNeb, Spiriva and budesonide- home medications Aspiration precautions Cardiovascular: Hypertension Sinus tachycardia On Cardizem 60mg Q6, Lopressor 50mg Q12. Keep MAP>65mmHg Renal: NISHANT Monitor renal function, I/O's, electrolytes replacement as needed. Will need K, Phos replacement FEN/GI: Elevated LFT's ( trending down) s/p EGD 11/25 showed erosive gastritis. Being prepped for colonoscopy which is scheduled for 11/26 On PPN/Iipids, GI and surgery are following KUB abdomen 11/23: Non obstructive bowel gas pattern CT abd/pelvis: Trace ascites or subcapsular fluid around liver Prominent gallbladder US abdomen: Negative for occlusion or significant stenosis. NGT to LIWS, rectal tube in place KUB 11/21 showed no obstruction. Wean off PPN and start truckle feeds if ok with GI( Jevity 1.5 with goal rate 50ml/hr) On Rifaximin, Lactulose monitor ammonia level ( 29) ID: Continue abx ( Cefepime, Flagyl, Vanco) monitor for signs of infections ( Fever , WBC) BC 11/16:NGTD, pancultured 11/23 ID is following Heme History of DVT 09/2017 Chronic ITP Hematology following-Dr. Luong. s/p transfusion1 u PRBC 11/24 s/p transfuse 1u PLT pheresis 11/23 11/17, 11/18 Transfused 1u PRBC Platelet count normally 40-70,000 Patient had left popliteal embolectomy 09/2017, Dr. Mixon and was placed on Pradaxa, patient under the care of spinning mule operator Dr. Reyna. 11/18 Patient takes Xarelto 20mg/d, Argatroban held per Heme Doppler US LE negative for DVT Endocrine: Hyperglycemia of critical illness Glucose monitoring per ICU [id number] regimen -- SSI Prophylaxis: GI Prophylaxis Famotidine BID DVT Prophylaxis -- SCDs Patient's home med include Xarelto. Argatroban stopped per Heme Lines: Peripheral IVs 2. Addendum: Patient kept intubated post EGD will keep on vent overnight and plan for SBT in am and possible extubation. Can wean off PPN and start trickle feeds discussed with GI- Dr. Sierra d/w patient's at bedside. Condition critical Time spent on critical care excluding procedures 30 minutes Problem Qualifiers (1) Abdominal pain: Qualified Codes: R10.84 - Generalized abdominal pain Gurmeet Marte MD Nov 26, 2017 15:11
[2017-11-26 15:50] LABS: ENDOMYSIAL AB SCREEN ND (NEGATIVE); ENDOMYSIAL AB TITER ND (<1:5)
[2017-11-26] MEDS ORDERED: CALCIUM GLUCONATE INJ 2 GM in SODIUM CHLORIDE 0.9% INJ 100 ML IV ONE (16:00)
[2017-11-26 17:06] LABS: BANDS 20 % (0-6); CORRECTED NUCLEATED RBC 4 /100 WBC (0-0); MONOCYTES 4 % (0-8); NEUTROPHIL # MANUAL DIFF 5.9 TH/MM3 (1.8-7.7); NUCLEATED RED BLOOD CELL 4 (0-0); POLYS (SEG NEUTROPHILS) 57 % (16-70)
[2017-11-26 17:07] LABS: DOHLE BODIES PRESENT (NONE SEEN); HOWELL-JOLLY BODIES PRESENT (NONE SEEN); LYMPHOCYTES 19 % (9-44); OVALOCYTES 1+ (NORMAL); TOXIC GRANULATION 1+ (NORMAL)
[2017-11-26 17:20] LABS: HEMATOCRIT 24.9 % (35.0-46.0); HEMOGLOBIN 8.6 GM/DL (11.6-15.3)
[2017-11-26] MEDS ORDERED: DO NOT ADM ANY ANTICOAGULANT DRUGS PRN (17:20)
[2017-11-26] MEDS: FLUCONAZOLE 200 MG PREMIX BAG 100 ML IV SCH (17:45)
--- NOTE | 2017-11-26 18:18 | PD.PROCEDR ---
GI Procedure PROCEDURE PERFORMED Incomplete colonoscopy to transverse colon with biopsy INDICATION FOR PROCEDURE Rectal bleeding PROCEDURE: The procedure, risks and benefits were discussed with Ms. Greco and informed consent was obtained. Anesthesia sedated her with Diprivan. She was placed in the left lateral decubitus position. Colonoscopy: The Pentax videoscope was introduced through the rectum and advanced to mid transverse colon. Retroflexion was performed in the rectum. Colonic prep was fair FINDINGS: As the scope was slowly withdrawn colonic mucosa was carefully inspected I opted to stop at the transverse colon due to the significant inflammatory changes noted in the colon it was erythematous friable mucosa with what looks like pseudomembranes throughout with rectal ulcerations biopsies were taken from the descending colon and the rectal ulcers no retroflexion was performed rectal examination does reveal internal and external hemorrhoids moderately sized ESTIMATED BLOOD LOSS: None SPECIMENS REMOVED: Descending colon and rectal biopsies COMPLICATIONS: None IMPRESSION: Severe colitis possibly C. difficile colitis Rectal ulcers etiology unclear PLAN: Await biopsies Continue with current supportive care Monitor labs Check for C. difficile Further recommendations to depend on her hospital course Abundio Sierra MD Nov 26, 2017 18:18
[2017-11-26] MEDS: FAT EMULSION 20% INJ 250 ML (@10 mls/hr) IV SCH (21:11)
[2017-11-26] MEDS: CLINIMIX 4.25/5 (Cust.Renal Periph) 1000 mL- </= 42 mls/hr IV SCH ×8 (21:11)
[2017-11-26 22:22] LABS: HEMOGLOBIN 7.5 GM/DL (11.6-15.3)
[2017-11-27] VITALS (18 sets, daily range): BP systolic 83–165; BP diastolic 50–96; PULSE 68–106; RESP 14–26; TEMP 98–99.2; O2SAT 93–100
[2017-11-27] MEDS: PROPOFOL 1000 MG/100 ML IV PRN ×2 (01:19→06:11)
[2017-11-27 03:40] LABS: HEMATOCRIT 32.4 % (35.0-46.0); HEMOGLOBIN 11.2 GM/DL (11.6-15.3)
[2017-11-27] MEDS: CHLORHEXIDINE GLUCONATE 2 % 1 PACK (2 CLOTHS) TOP SCH (04:00)
[2017-11-27] MEDS: DILTIAZEM HCL 60 MG TAB PO SCH ×3 (05:03→18:16)
[2017-11-27 05:33] LABS: MEAN CELL VOLUME 96.3 FL (80.0-100.0); MEAN CORPUSCULAR HEMOGLOBIN 33.1 PG (27.0-34.0); MEAN CORPUSCULAR HGB CONC 34.3 % (32.0-36.0); MEAN PLATELET VOLUME 8.7 FL (7.0-11.0); PLATELET COUNT 36 TH/MM3 (150-450); RED BLOOD COUNT 3.35 MIL/MM3 (4.00-5.30); RED CELL DISTRIBUTION WIDTH 25.8 % (11.6-17.2)
[2017-11-27 05:34] LABS: WHITE BLOOD COUNT 6.6 TH/MM3 (4.0-11.0)
[2017-11-27 05:35] LABS: HEMATOCRIT 32.4 % (35.0-46.0); HEMOGLOBIN 11.2 GM/DL (11.6-15.3)
[2017-11-27] MEDS ORDERED: SODIUM CHLOR 0.9% 250 ML INJ 250 ML IV ONE (07:30)
[2017-11-27] MEDS: FAMOTIDINE 20 MG TAB PO SCH ×2 (08:18→22:38)
[2017-11-27] MEDS: DOCUSATE SODIUM 50 MG/SENNA 8.6 MG TAB PO SCH ×2 (08:18→22:39)
[2017-11-27] MEDS: LACTULOSE SYRUP 20 GM/30 ML CUP PO SCH ×3 (08:18→18:16)
[2017-11-27] MEDS: RIFAXIMIN 550 MG TAB PO SCH ×2 (08:18→22:42)
[2017-11-27] MEDS: CEFEPIME INJ 2,000 MG in SODIUM CHLORIDE 0.9% INJ 100 ML IV SCH ×2 (08:19→20:00)
[2017-11-27] MEDS: METOPROLOL TARTRATE 50 MG TAB PO SCH ×2 (08:19→22:38)
[2017-11-27] MEDS: SODIUM CHLORIDE 0.9% FLUSH 10 ML FLUSH IV FLUSH SCH ×2 (08:21→22:38)
[2017-11-27] MEDS: TIOTROPIUM BROMIDE 18 MCG INH INH SCH (08:21)
[2017-11-27] MEDS: RESP: BUDESONIDE 0.25 MG/2 ML NEB NEB SCH (09:19)
[2017-11-27] MEDS ORDERED: RESP: RACEPINEPHRINE 2.25% 0.5 ML NEB ONE (10:36)
--- NOTE | 2017-11-27 10:40 | HHI.CCPN ---
Subjective Remarks/Hospital Course This is a 67-year-old female that presented to [facility], by private transportation for evaluation of severe abdominal pain. Patient states of the past week she has had constipation so last evening took laxatives ( Senokot) x 3 days, and then today had large bowel movement multiple times with development of severe lower abdominal pain. Patient had subsequently noted some abdominal distention. Patient states her abdomen is exquisitely tender with any movement. Patient also complains of some epigastric pain. 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 No report of hematemesis or coffee-ground emesis. Patient states after bowel movements no report of melena or hematochezia. Patient rates her abdominal pain 10/10 in intensity, without relief of narcotics. The patient was transferred to [facility] , critical care medicine was consulted. Subjective: 11/18: Overnight the patient was known to be oliguric, the patient received approximately 5 L of normal saline , and 500 cc of 5% albumin during the night. NG tube output approximately 700 cc since admission. The patient was noted to be mildly confused this a.m. and progressively worsened. O2 saturation was 100% ,stat ABGs performed, metabolic acidosis with a bicarbonate level of 16. Patient received 2 A of sodium bicarbonate and bicarbonate infusion was initiated. Patient also was noted to be hypocalcemic this a.m. and received 2 g of calcium gluconate. The patient was started on Argatroban infusion after discussion with Dr. Howell, plan for endoscopy tomorrow . The patient was previously on Xarelto for DVT prophylaxis.Repeat labs performed early this afternoon revealed hemoglobin of 6.7, 1 unit of PRBC being transfused. She required restraints, for patient safety. Repeat labs pending this evening posttransfusion. 11/19: Afebrile. Last evening the patient became more confused metabolic acidosis, placed on sodium bicarbonate infusion, now corrected. Patient alert, following commands. Sodium bicarbonate infusion discontinued. Patient noted to be severely anemic with hemoglobin of 6.2 received 1 unit of PRBCs, last hemoglobin 9.4, stable. Continued serial monitoring of H&H labs pending this a.m.. Patient noted to have improvement in urine output overnight. EGD placed on hold. 11/20 No events overnight. Afebrile, on 3L oxygen. 11/21 Patient is on 2L oxygen. MRI brain last night showed no acute abnormalities. Afebrile. Lethargic 11/22 Patient is on 3L oxygen. Renal function is improving with Cr: 1.47 from 1.77. On Argatroban drip. 11/23 No events overnight, On Argatroban drip. Cr: 1.16 from 1.47. 11/24 Patient is more awake, off Argatroban drip, T:100.3. 1u PRBC ordered for Hgb 6.7 this morning. 11/25 Patient is on 50% VM with good sats. Afebrile. 11/26: Remains orally intubated on mechanical ventilation, awaiting colonoscopy. 11/27: Arousable off sedation, orally intubated on mechanical ventilation. Colonoscopy showed colitis and pseudomembranes yesterday biopsies pending. Stool for C. difficile ordered. Objective Vital Signs Date Time Temp Pulse Resp B/P (MAP) Pulse Ox O2 Delivery O2 Flow Rate FiO2 11/27/17 10:00 35 11/27/17 09:19 100 11/27/17 06:00 78 11/27/17 04:00 98.5 14 104/57 (73) 11/25/17 11:30 Mechanical Ventilator 11/25/17 07:55 6.00 Intake and Output 11/27/17 11/27/17 11/28/17 08:00 16:00 00:00 Intake Total 625 ml 10 ml Output Total 350 ml Balance 275 ml 10 ml Result Diagram: 11/27/17 0306 11/26/17 1300 Other Results Microbiology Date/Time Source Procedure Growth Status 11/25/17 17:45 Sputum Endotracheal Gram Stain - Final Complete 11/25/17 17:45 Sputum Endotracheal Sputum Culture - Final HEAVY GROWTH NORMAL RESPIRATORY [place] Complete Imaging Last Impressions Chest X-Ray 11/23/17 0000 Signed Impressions: Service Date/Time: Thursday, November 23, 2017 10:56 - CONCLUSION: Small right pleural effusion. Scattered bibasilar atelectasis is noted. Swapnil Saldaña MD Abdomen X-Ray 11/23/17 0000 Signed Impressions: Service Date/Time: Thursday, November 23, 2017 06:14 - CONCLUSION: Nonobstructive bowel gas pattern without significant change. Ousmane Aguilar MD Brain MRI 11/20/17 1409 Signed Impressions: Service Date/Time: October 20:54 - CONCLUSION: 1. No acute intracranial abnormality. Right-sided mastoid air cell disease. No recent infarct, mass effect or shift. Roby Brito MD Lower Extremity Ultrasound 11/20/17 0000 Signed Impressions: Service Date/Time: October 11:48 - CONCLUSION: 1. No evidence of DVT. 2. Small right Stovall's cyst. Keven Lake MD Head CT 11/20/17 0000 Signed Impressions: Service Date/Time: October 11:29 - CONCLUSION: 1. Focal decreased attenuation involving the right armin consistent with lacunar infarct or ischemic change. 2. No acute hemorrhage, midline shift or extra-axial fluid collections. 3. Small fluid level within the right sphenoid sinus. Swapnil Saldaña MD Chest CT 11/19/17 0000 Signed Impressions: Service Date/Time: Sunday, November 19, 2017 17:10 - CONCLUSION: Minimal consolidative changes as above Small pleural effusions. Luis A Castillo MD FACR Abdomen/Pelvis CT 11/19/17 0000 Signed Impressions: Service Date/Time: Sunday, November 19, 2017 17:10 - CONCLUSION: Trace ascites or subcapsular fluid around liver Prominent gallbladder Luis A Castillo MD FACR Abdomen Ultrasound 11/17/17 0000 Signed Impressions: Service Date/Time: Friday, November 17, 2017 08:01 - CONCLUSION: Negative for occlusion or significant stenosis. Luis A Castillo MD FACR Objective Remarks GENERAL: This is a pale thin female lying in bed in [facility] SKIN: Warm and dry. Pale HEAD: Atraumatic. Normocephalic. EYES: Pupils equal and round. No scleral icterus. No injection or drainage. ENT: No nasal bleeding or discharge. Mucous membranes pink and moist. NECK: Trachea midline. No JVD. CARDIOVASCULAR: Tachycardic rate, regular rhythm. RESPIRATORY: Orally intubated on mechanical ventilation, No accessory muscle use. Clear to auscultation. Breath sounds equal bilaterally GASTROINTESTINAL: Abdomen soft, non-tender, nondistended. No guarding. MUSCULOSKELETAL: Extremities without clubbing, cyanosis, or edema. No obvious deformities. NEUROLOGICAL: Sedated, arousable, orally intubated, moving all 4 extremities A/P Problem List: (1) Chronic anemia ICD Code: D64.9 - Anemia, unspecified Status: Acute (2) Idiopathic thrombocytopenia purpura ICD Code: D69.3 - Immune thrombocytopenic purpura Status: Acute (3) COPD (chronic obstructive pulmonary disease) ICD Code: J44.9 - Chronic obstructive pulmonary disease, unspecified Status: Acute (4) NISHANT (acute kidney injury) ICD Code: N17.9 - Acute kidney failure, unspecified Status: Acute (5) Chronic back pain ICD Code: M54.9 - Dorsalgia, unspecified; G89.29 - Other chronic pain Status: Acute (6) Hypertension ICD Code: I10 - Essential (primary) hypertension Status: Acute (7) Acute and chronic respiratory failure with hypoxia ICD Code: J96.21 - Acute and chronic respiratory failure with hypoxia Status: Acute (8) Abdominal pain ICD Code: R10.9 - Unspecified abdominal pain Status: Acute (9) Metabolic acidemia ICD Code: E87.2 - Acidosis Status: Acute Assessment and Plan Assessment Plan Plan by systems: Neurologic: Chronic back pain 10/03 impression fractures Neurochecks per ICU protocol MRI brain 11/21 no acute abnormalities 11/20 EEG: bihemispheric slowing. There are some intermixed slow sharp waves, but no distinct paroxysmal discharges. The pattern suggests severe bilateral abnormalities, either metabolic or structural Neuro is following- Dr. Hyman Dilaudid 0.5 mg every 4 hours when necessary for breakthrough pain scale 7-10 Tylenol 650 mg every 6 hours when necessary for pain or temperature greater than 100.5 Patient on home dose [place] for pain control, resume following extubation if required. Respiratory: COPD Asthma Home O2 dependency Acute respiratory failure on mechanical ventilation Tolerating C Pap trials, ordered extubation home O2 dependency Continue DuoNeb, Spiriva and budesonide- home medications Aspiration precautions Cardiovascular: Hypertension Sinus tachycardia On Cardizem 60mg Q6, Lopressor 50mg Q12. Keep MAP>65mmHg Renal: NISHANT Monitor renal function, I/O's, electrolytes replacement as needed. Will need K, Phos replacement FEN/GI: Elevated LFT's ( trending down) s/p EGD 11/25 showed erosive gastritis. Colonoscopy done on 11/26 revealed colitis with possible pseudomembranes, biopsy sent. Stool for C. difficile pending. On PPN/Iipids-plan to titrate off, advance by mouth intake which is okay with GI , GI and surgery are following KUB abdomen 11/23: Non obstructive bowel gas pattern CT abd/pelvis: Trace ascites or subcapsular fluid around liver Prominent gallbladder US abdomen: Negative for occlusion or significant stenosis. rectal tube in place KUB 11/21 showed no obstruction. Wean off PPN and start PO feeds if ok with GI On Rifaximin, Lactulose monitor ammonia level ( ) ID: Funguria Pseudomembranes on colonoscopy with colitis Continue abx per ID monitor for signs of infections ( Fever, WBC). Stool for C. difficile pending BC 11/16:NGTD, pancultured 11/23 ID is following Heme History of DVT 09/2017 Chronic ITP Hematology following-Dr. Luong. s/p transfusion1 u PRBC 11/24 s/p transfuse 1u PLT pheresis 11/23, 11/27 11/17, 11/18 Transfused 1u PRBC Platelet count normally 40-70,000 Patient had left popliteal embolectomy 09/2017, Dr. Mixon and was placed on Pradaxa, patient under the care of equipment operating engineer Dr. Reyna. 11/18 Patient takes Xarelto 20mg/d, Argatroban held per Heme Doppler US LE negative for DVT Endocrine: Hyperglycemia of critical illness Glucose monitoring per ICU [id number] regimen -- SSI Prophylaxis: GI Prophylaxis Famotidine BID DVT Prophylaxis -- SCDs Patient's home med include Xarelto. Argatroban stopped per Heme Lines: Peripheral IVs 2. d/w patient's at bedside. Problem Qualifiers (1) Abdominal pain: Qualified Codes: R10.84 - Generalized abdominal pain Gurmeet Marte MD Nov 27, 2017 10:40
--- NOTE | 2017-11-27 10:43 | HHI.PR ---
Objective Vital Signs Date Time Temp Pulse Resp B/P (MAP) Pulse Ox O2 Delivery O2 Flow Rate FiO2 11/27/17 10:00 35 11/27/17 09:19 100 35 11/27/17 06:00 78 11/27/17 05:35 99 35 11/27/17 04:00 35 11/27/17 04:00 78 11/27/17 04:00 98.5 78 14 104/57 (73) 100 11/27/17 02:00 68 11/27/17 01:52 97 35 11/27/17 00:00 35 11/27/17 00:00 72 11/27/17 00:00 98.5 72 14 83/51 (62) 99 11/26/17 22:55 100 35 11/26/17 22:00 82 11/26/17 20:00 35 11/26/17 20:00 87 11/26/17 20:00 98.8 87 18 106/58 (74) 98 11/26/17 18:00 97 11/26/17 16:00 40 11/26/17 16:00 99.6 90 16 101/57 (72) 100 11/26/17 16:00 90 11/26/17 15:19 100 35 11/26/17 15:00 91 16 97/54 (68) 100 11/26/17 14:00 91 11/26/17 14:00 91 17 101/50 (67) 99 11/26/17 13:00 98 19 110/55 (73) 97 11/26/17 12:03 98 35 11/26/17 12:00 40 11/26/17 12:00 93 11/26/17 12:00 98.5 93 15 87/49 (62) 98 11/26/17 11:00 93 14 85/48 (60) 98 I/O 11/26/17 11/26/17 11/26/17 11/27/17 11/27/17 11/27/17 07:00 15:00 23:00 07:00 15:00 23:00 Intake Total 640 ml 350.1 ml 7328.6 ml 650 ml 10 ml Output Total 1700 ml 3450 ml 350 ml Balance -1060 ml 350.1 ml 3878.6 ml 300 ml 10 ml IV Total 200 ml 350.1 ml 2705.6 ml 200 ml Packed Cells 400 ml 400 ml Blood Product IV Normal Saline Flush 40 ml 50 ml 10 ml Tube Irrigant 4523 ml Other 100 ml Output Urine Total 500 ml 450 ml 350 ml Stool Total 1200 ml 3000 ml 0 ml # Bowel Movements 0 Result Diagram: 11/27/17 0306 11/26/17 1300 Objective Remarks awake alert on vent follows all commands well sp colonoscopy Assessment and Plan Assessment and Plan imp mri nl eeg metabolic nh3 46 i suspect all metabolic and if we gave her narcan and mazicon she would awaken well should improve as med condition does 11/24/17 looks much better today still low calcium plts up hb down much improved met enceph 11/27/17 doing well neurowise if plts ever come up consider restart anticoag with hx of afib or if cards thinks a candidate could get watchman device if cannot anticoag and chads score is high enough consider [facility] consult for this o/w i am going to sign off Rojelio Hyman MD Nov 27, 2017 10:42
--- NOTE | 2017-11-27 11:43 | HHI.GIFU ---
Subjective Remarks Pt now extubated, on NC, breathing remains irregular Confused at bedside Rectal tube to [place] bag with no output (Lesa Piedra) Objective Vitals I&O Vital Signs Date Time Temp Pulse Resp B/P (MAP) Pulse Ox O2 Delivery O2 Flow Rate FiO2 11/27/17 10:45 93 Nasal Cannula 4 11/27/17 10:00 35 11/27/17 09:19 100 35 11/27/17 06:00 78 11/27/17 05:35 99 35 11/27/17 04:00 35 11/27/17 04:00 78 11/27/17 04:00 98.5 78 14 104/57 (73) 100 11/27/17 02:00 68 11/27/17 01:52 97 35 11/27/17 00:00 35 11/27/17 00:00 72 11/27/17 00:00 98.5 72 14 83/51 (62) 99 11/26/17 22:55 100 35 11/26/17 22:00 82 11/26/17 20:00 35 11/26/17 20:00 87 11/26/17 20:00 98.8 87 18 106/58 (74) 98 11/26/17 18:00 97 11/26/17 16:00 40 11/26/17 16:00 99.6 90 16 101/57 (72) 100 11/26/17 16:00 90 11/26/17 15:19 100 35 11/26/17 15:00 91 16 97/54 (68) 100 11/26/17 14:00 91 11/26/17 14:00 91 17 101/50 (67) 99 11/26/17 13:00 98 19 110/55 (73) 97 11/26/17 12:03 98 35 11/26/17 12:00 40 11/26/17 12:00 93 11/26/17 12:00 98.5 93 15 87/49 (62) 98 I/O 11/26/17 11/26/17 11/26/17 11/27/17 11/27/17 11/27/17 07:00 15:00 23:00 07:00 15:00 23:00 Intake Total 640 ml 350.1 ml 7328.6 ml 650 ml 10 ml Output Total 1700 ml 3450 ml 350 ml Balance -1060 ml 350.1 ml 3878.6 ml 300 ml 10 ml IV Total 200 ml 350.1 ml 2705.6 ml 200 ml Packed Cells 400 ml 400 ml Blood Product IV Normal Saline Flush 40 ml 50 ml 10 ml Tube Irrigant 4523 ml Other 100 ml Output Urine Total 500 ml 450 ml 350 ml Stool Total 1200 ml 3000 ml 0 ml # Bowel Movements 0 Laboratory Laboratory Tests Test 11/26/17 13:00 11/26/17 16:40 11/26/17 21:49 11/27/17 03:06 White Blood Count 7.6 6.6 Red Blood Count 2.61 3.35 Hemoglobin 8.8 8.6 7.5 11.2 Hematocrit 25.4 24.9 22.0 32.4 Mean Corpuscular Volume 97.4 96.3 Mean Corpuscular Hemoglobin 33.7 33.1 Mean Corpuscular Hemoglobin Concent 34.6 34.3 Red Cell Distribution Width 28.5 25.8 Platelet Count 37 36 Mean Platelet Volume 8.1 8.7 Neutrophils (%) (Auto) 73.8 Lymphocytes (%) (Auto) 17.4 Monocytes (%) (Auto) 7.7 Eosinophils (%) (Auto) 0.7 Basophils (%) (Auto) 0.4 Neutrophils # (Auto) 5.6 Lymphocytes # (Auto) 1.3 Monocytes # (Auto) 0.6 Eosinophils # (Auto) 0.1 Basophils # (Auto) 0.0 CBC Comment AUTO DIFF Differential Total Cells Counted 100 Neutrophils % (Manual) 57 Band Neutrophils % 20 Lymphocytes % 19 Monocytes % 4 Neutrophils # (Manual) 5.9 Nucleated Red Blood Cells 4 Differential Comment FINAL DIFF MANUAL Atypical Lymphocytes Toxic Granulation 1+ Dohle Bodies PRESENT Platelet Estimate LOW Platelet Morphology Comment NORMAL Ovalocytes 1+ [place] Bodies PRESENT Prothrombin Time 10.7 Prothromb Time International Ratio 1.1 Blood Urea Nitrogen 30 Creatinine 1.07 Random Glucose 100 Total Protein 5.5 Albumin 2.2 Calcium Level 6.6 Phosphorus Level 1.8 Magnesium Level 1.9 Alkaline Phosphatase 53 Aspartate Amino Transf (AST/SGOT) 22 Alanine Aminotransferase (ALT/SGPT) 10 Total Bilirubin 0.6 Sodium Level 141 Potassium Level 3.6 Chloride Level 106 Carbon Dioxide Level 27.5 Anion Gap 8 Estimat Glomerular Filtration Rate 51 Protein Corrected Calcium 7.4 Ammonia LESS THAN 10 Test 3/29/18 10:59 Date/Time Source Procedure Growth Status 11/23/17 12:22 Blood Peripheral Aerobic Blood Culture - Preliminary NO GROWTH IN 4 DAYS Resulted 11/23/17 12:22 Blood Peripheral Anaerobic Blood Culture - Preliminary NO GROWTH IN 4 DAYS Resulted 11/18/17 14:25 Stool Stool Stool Occult Blood (KIM) - Final HEMOCCULT POSITIVE Complete 11/25/17 17:45 Sputum Endotracheal Gram Stain - Final Complete 11/25/17 17:45 Sputum Endotracheal Sputum Culture - Final HEAVY GROWTH NORMAL RESPIRATORY [place] Complete 11/23/17 13:45 Urine Clean Catch Urine Culture - Final Swati Glabrata Complete Imaging Last Impressions Chest X-Ray 11/26/17 0000 Signed Impressions: Service Date/Time: Sunday, November 26, 2017 04:09 - CONCLUSION: 1. Hyperinflation and bilateral hazy opacities, unchanged. Carlos Wang MD Abdomen X-Ray 11/23/17 0000 Signed Impressions: Service Date/Time: Thursday, November 23, 2017 06:14 - CONCLUSION: Nonobstructive bowel gas pattern without significant change. Ousmane Aguilar MD Brain MRI 11/20/17 [id number] Signed Impressions: Service Date/Time: October 20:54 - CONCLUSION: 1. No acute intracranial abnormality. Right-sided mastoid air cell disease. No recent infarct, mass effect or shift. Roby Brito MD Lower Extremity Ultrasound 11/20/17 0000 Signed Impressions: Service Date/Time: October 11:48 - CONCLUSION: 1. No evidence of DVT. 2. Small right Stovall's cyst. Keven Lake MD Head CT 11/20/17 0000 Signed Impressions: Service Date/Time: October 11:29 - CONCLUSION: 1. Focal decreased attenuation involving the right armin consistent with lacunar infarct or ischemic change. 2. No acute hemorrhage, midline shift or extra-axial fluid collections. 3. Small fluid level within the right sphenoid sinus. Swapnil Saldaña MD Chest CT 11/19/17 0000 Signed Impressions: Service Date/Time: Sunday, November 19, 2017 17:10 - CONCLUSION: Minimal consolidative changes as above Small pleural effusions. Luis A Castillo MD FACR Abdomen/Pelvis CT 11/19/17 0000 Signed Impressions: Service Date/Time: Sunday, November 19, 2017 17:10 - CONCLUSION: Trace ascites or subcapsular fluid around liver Prominent gallbladder Luis A Castillo MD FACR Abdomen Ultrasound 11/17/17 0000 Signed Impressions: Service Date/Time: Friday, November 17, 2017 08:01 - CONCLUSION: Negative for occlusion or significant stenosis. Luis A Castillo MD FACR Physical Exam HEENT: Normocephalic; atraumatic CHEST: Irregular respirations, tachypnea CARDIAC: RRR ABDOMEN: Soft, nondistended, bowel sounds active. Rectal bag with no output SKIN: Pale; no rash; no jaundice. MULESER: Awake, confused (Lesa Piedra) Assessment and Plan Plan - Abdominal pain and distention- KUB (11/17) --> No signs of obstruction, ileus or perforation. US abd SMA/Celiac --> Negative for occlusion or significant stenosis. - Anemia- macrocytic- H/H dropped to 6.7/20.2 yesterday- received one unit PRBCs- currently 05/26.9. No signs of GIB via NGT or rectal output. 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 Going down for CT abdomen/pelvis now. (11/21) Pt increasingly confused, nonverbal during exam. MRI brain done to evaluate change in mental status which showed no acute findings. Ammonia-46 possible cause of encephalopathy. Pt now on Xifaxan and Lactulose. (11/23) Remains confused and agitated. Ammonia now WNL. Unclear cause of metabolic encephalopathy. Anemia and thrombocytopenia. Drop in H/H and platelets now 17. Not stable for endoscopic procedures. SBFT ordered, pt to agitated for procedure. wanting to hold off on this at this time Liver DIAZ pending, serum mercury, Vit D A C, serum copper Reexamined at 11:28 Pt is now alert and oriented, complaining of pain but can not localize it. Per RN reports of dark red blood through NGT. Palliative care consult pending now that pt is alert and oriented and able to participate in health care decisions. Remains at very high risk for procedures and her wishes should be addressed, likely to require intubation for endoscopic procedures. Platelet replacement per hematology. SBFT (11/23) --> Nonobstructive bowel gas pattern without significant change. (11/27) S/P colonoscopy yesterday for reports of maroon colored stool. --> Severe colitis possibly secondary to C Diff colitis. Rectal ulcers etiology unclear. Descent colon and rectal biopsies. Pt with rectal bag with no stool at this time. RN aware to send stool for C. Diff testing. H/H 11.2/32.4 S/P 1 U PRBCs yesterday. Platelet tx per Dr. Luong. Pt now extubated on NC, awake but confused. Irregular breathing, this was noted prior to intubation. Plan: Stool for C. Diff Monitor stool output Monitor H/H Transfuse as needed Further recommendations pending C Diff culture and clinical course Pt has been seen and examined by myself and Dr. Sierra and this note is written on his behalf (Lesa Piedra) Physician Comments Seen and examined Agree with above Continue with current supportive care Monitor labs Await biopsy results and stool studies (Abundio Sierra MD) Lesa Piedra Nov 27, 2017 11:43 Abundio Sierra MD Nov 27, 2017 21:02
[2017-11-27 11:50] LABS: HEMATOCRIT 33.6 % (35.0-46.0); HEMOGLOBIN 11.4 GM/DL (11.6-15.3)
[2017-11-27] MEDS: HYDROmorphone HCL PF 2 MG/ML VIAL IV PRN (12:08)
--- NOTE | 2017-11-27 12:30 | HHI.PR ---
cc: Leo Dunham MD Subjective Subjective Notes Resting in bed Recently extubated at bedside Objective Vitals/I&O Vital Signs Date Time Temp Pulse Resp B/P (MAP) Pulse Ox O2 Delivery O2 Flow Rate FiO2 11/27/17 10:45 93 Nasal Cannula 4 11/27/17 10:00 35 11/27/17 09:45 98.5 85 16 154/58 Labs Laboratory Tests Test 11/26/17 13:00 11/26/17 16:40 11/26/17 21:49 11/27/17 03:06 White Blood Count 7.6 6.6 Red Blood Count 2.61 3.35 Hemoglobin 8.8 8.6 7.5 11.2 Hematocrit 25.4 24.9 22.0 32.4 Mean Corpuscular Volume 97.4 96.3 Mean Corpuscular Hemoglobin 33.7 33.1 Mean Corpuscular Hemoglobin Concent 34.6 34.3 Red Cell Distribution Width 28.5 25.8 Platelet Count 37 36 Mean Platelet Volume 8.1 8.7 Neutrophils (%) (Auto) 73.8 Lymphocytes (%) (Auto) 17.4 Monocytes (%) (Auto) 7.7 Eosinophils (%) (Auto) 0.7 Basophils (%) (Auto) 0.4 Neutrophils # (Auto) 5.6 Lymphocytes # (Auto) 1.3 Monocytes # (Auto) 0.6 Eosinophils # (Auto) 0.1 Basophils # (Auto) 0.0 CBC Comment AUTO DIFF Differential Total Cells Counted 100 Neutrophils % (Manual) 57 Band Neutrophils % 20 Lymphocytes % 19 Monocytes % 4 Neutrophils # (Manual) 5.9 Nucleated Red Blood Cells 4 Differential Comment FINAL DIFF MANUAL Atypical Lymphocytes Toxic Granulation 1+ Dohle Bodies PRESENT Platelet Estimate LOW Platelet Morphology Comment NORMAL Ovalocytes 1+ [place]barra[place] Bodies PRESENT Prothrombin Time 10.7 Prothromb Time International Ratio 1.1 Blood Urea Nitrogen 30 Creatinine 1.07 Random Glucose 100 Total Protein 5.5 Albumin 2.2 Calcium Level 6.6 Phosphorus Level 1.8 Magnesium Level 1.9 Alkaline Phosphatase 53 Aspartate Amino Transf (AST/SGOT) 22 Alanine Aminotransferase (ALT/SGPT) 10 Total Bilirubin 0.6 Sodium Level 141 Potassium Level 3.6 Chloride Level 106 Carbon Dioxide Level 27.5 Anion Gap 8 Estimat Glomerular Filtration Rate 51 Protein Corrected Calcium 7.4 Ammonia LESS THAN 10 Test 11/27/17 10:59 Hemoglobin 11.4 Hematocrit 33.6 Date/Time Source Procedure Growth Status 11/23/17 12:22 Blood Peripheral Aerobic Blood Culture - Preliminary NO GROWTH IN 4 DAYS Resulted 11/23/17 12:22 Blood Peripheral Anaerobic Blood Culture - Preliminary NO GROWTH IN 4 DAYS Resulted 11/18/17 14:25 Stool Stool Stool Occult Blood (KIM) - Final HEMOCCULT POSITIVE Complete 11/25/17 17:45 Sputum Endotracheal Gram Stain - Final Complete 11/25/17 17:45 Sputum Endotracheal Sputum Culture - Final HEAVY GROWTH NORMAL RESPIRATORY [place] Complete 11/23/17 13:45 Urine Clean Catch Urine Culture - Final Swati Glabrata Complete Radiology Last 48 hours Impressions Abdomen/Pelvis CT 11/17/17 0000 Signed Impressions: Service Date/Time: Friday, November 17, 2017 01:08 - CONCLUSION: 1. Distended stomach. 2. Fluid distended colon without dilated loops of small bowel. Víctor Bates MD Abdomen X-Ray 11/17/17 0000 Signed Impressions: Service Date/Time: Friday, November 17, 2017 07:37 - CONCLUSION: No bowel obstruction, ileus or perforation. Swapnil Saldaña MD Abdomen Ultrasound 11/17/17 0000 Signed Impressions: Service Date/Time: Friday, November 17, 2017 08:01 - CONCLUSION: Negative for occlusion or significant stenosis. Luis A Castillo MD FACR Chest X-Ray 11/16/17 [id number] Signed Impressions: Service Date/Time: Thursday, November 16, 2017 23:51 - CONCLUSION: Hyperaerated lungs. No infiltrates seen. Víctor Bates MD Cardiovascular: Regular Lungs: Clear Abdomen: Other (tenderness with palpation ) Extremities: Other (moderate BUE edema with brusing ) A/P Assessment and Plan 67 year old female with abdominal pain; lactic acidosis -Extubated now; stable on NC -S/p colonoscopy--- shows pseudomembranes; sending c-diff -S/p EGD shows erosive gastritis 2nd to NG injury?? -Hmg 11.4 -Will see peripherally follow; Non surgical management; please call with any questions Attending Statement patient seen at bedside as above concern for c diff await cx abdominal pain but abdomen appears soft mild ttp continue medical mgnt will follow intermittently Attestation The exam, history, and the medical decision-making described in the above note were completed with the assistance of the mid-level provider. I reviewed and agree with the findings presented. I attest that I had a [id number] encounter with the patient on the same day, and personally performed and documented my assessment and findings in the medical record. Nicky Neil/[employer] HE[employer] PROGRAM DIRECTOR Nov 27, 2017 12:30 Leo Dunham MD Dec 02, 2017 13:48
--- NOTE | 2017-11-27 13:22 | PD.ONC.PN ---
Subjective Subjective Remarks Afebrile overnight. Patient awake, on O2 via NC. No family at bedside. No complaints. Objective Data Date Time Temp Pulse Resp B/P (MAP) Pulse Ox O2 Delivery O2 Flow Rate FiO2 11/27/17 10:45 93 Nasal Cannula 4 11/27/17 10:00 35 11/27/17 09:45 98.5 85 16 154/58 99 11/27/17 09:19 100 35 11/27/17 09:15 98.2 84 15 116/56 97 11/27/17 06:00 78 11/27/17 05:35 99 35 11/27/17 04:00 35 11/27/17 04:00 78 11/27/17 04:00 98.5 78 14 104/57 (73) 100 11/27/17 02:00 68 11/27/17 01:52 97 35 11/27/17 00:00 35 11/27/17 00:00 72 11/27/17 00:00 98.5 72 14 83/51 (62) 99 11/26/17 22:55 100 35 11/26/17 22:00 82 11/26/17 20:00 35 11/26/17 20:00 87 11/26/17 20:00 98.8 87 18 106/58 (74) 98 11/26/17 18:00 97 11/26/17 16:00 40 11/26/17 16:00 99.6 90 16 101/57 (72) 100 11/26/17 16:00 90 11/26/17 15:19 100 35 11/26/17 15:00 91 16 97/54 (68) 100 11/26/17 14:00 91 11/26/17 14:00 91 17 101/50 (67) 99 11/27/17 11/27/17 11/27/17 07:00 15:00 23:00 Intake Total 650 ml 231 ml Output Total 350 ml Balance 300 ml 231 ml Result Diagram: 11/27/17 1059 11/26/17 1300 Laboratory Results Laboratory Tests Test 11/26/17 16:40 11/26/17 21:49 11/27/17 03:06 11/27/17 10:59 Hemoglobin 8.6 GM/DL 7.5 GM/DL 11.2 GM/DL 11.4 GM/DL Hematocrit 24.9 % 22.0 % 32.4 % 33.6 % Ammonia LESS THAN 10 MCMOL/L White Blood Count 6.6 TH/MM3 Red Blood Count 3.35 MIL/MM3 Mean Corpuscular Volume 96.3 FL Mean Corpuscular Hemoglobin 33.1 PG Mean Corpuscular Hemoglobin Concent 34.3 % Red Cell Distribution Width 25.8 % Platelet Count 36 TH/MM3 Mean Platelet Volume 8.7 FL Culture Results Microbiology Date/Time Source Procedure Growth Status 11/25/17 17:45 Sputum Endotracheal Gram Stain - Final Complete 11/25/17 17:45 Sputum Endotracheal Sputum Culture - Final HEAVY GROWTH NORMAL RESPIRATORY [place] Complete Administered Medications Medications (Trade) Dose Ordered Sig/[place] Route PRN Reason Start Time Stop Time Status Last Admin Dose Admin Sodium Chloride (NS Flush) 2 ml UNSCH PRN IV FLUSH FLUSH AFTER USING IV ACCESS 11/17/17 06:45 11/26/17 08:22 Sodium Chloride (NS Flush) 2 ml BID IV FLUSH 11/17/17 09:00 11/27/17 08:21 Acetaminophen (Tylenol) 650 mg Q6H PRN PO FEVER >101F 11/17/17 06:45 11/24/17 08:24 Albuterol/ Ipratropium (Duoneb Neb) 1 ampule Q4HR NEB PRN INH WHEEZING 11/17/17 06:45 11/26/17 23:05 Miscellaneous Information 1 Q361D XX 11/17/17 06:45 11/17/17 06:45 Chlorhexidine Gluconate (Chlorhexidine 2% Cloth) Taper DAILY@04 TOP 11/18/17 04:00 11/14/18 03:59 11/24/17 04:00 Senna/Docusate Sodium (Rita-Colace) 1 tab BID PO 11/17/17 09:00 11/27/17 08:18 Sennosides (Senokot) 17.2 mg Q12H PRN PO Moderate constipation 11/17/17 06:45 11/17/17 09:11 Lactulose (Lactulose Liq) 30 ml DAILY PRN PO SEVERE CONSITIPATION 11/17/17 06:45 11/17/17 09:11 Albuterol Sulfate (Albuterol Neb) 2.5 mg Q4HR NEB PRN NEB SHORTNESS OF BREATH 11/17/17 07:45 11/25/17 20:45 Budesonide (Pulmicort Respule Neb) 0.25 mg DAILY NEB NEB 11/17/17 08:00 11/27/17 09:19 Tiotropium [place] (Spiriva Inh) 18 mcg DAILY INH 11/17/17 09:00 11/25/17 08:14 Argatroban 250 mg/ Sodium Chloride 252.5 ml @ 1.92 mls/hr TITRATE PRN IV aPTT < 50 11/18/17 12:45 Future Hold 11/22/17 15:20 Sodium Chloride 5.5 meq/Sodium Acetate 29.5 meq/ Potassium Chloride 20 meq/ Magnesium Chloride 5 meq/ Calcium Chloride 4.5 meq/ Multivitamins 10 ml/Folic Acid 1 mg/Amino Acids/ Dextrose 1,042.1719 ml @ 42 mls/hr Q24H IV 11/19/17 20:00 11/26/17 21:11 Fat Emulsion Intravenous 250 ml @ 10 mls/hr Q24H IV 11/19/17 20:00 11/26/17 21:11 Diltiazem HCl (Cardizem) 60 mg Q6HR PO 11/20/17 12:00 11/27/17 05:03 Rifaximin (Xifaxan) 550 mg BID PO 11/20/17 21:00 11/27/17 08:18 Lactulose (Lactulose Liq) 15 ml TID PO 11/21/17 09:00 11/27/17 08:18 Potassium Chloride 100 ml @ 50 mls/hr Q2H PRN IV For Potassium 2.8 - 3.2 mEq/L 11/21/17 13:30 11/24/17 13:14 Potassium Bicarb/ Potassium Chloride (K-Lyte Cl Eff) 50 meq UNSCH PRN PO For Potassium 3.3 - 3.5 mEq/L 11/21/17 13:30 11/21/17 13:47 Potassium Chloride 100 ml @ 50 mls/hr Q2H PRN IV For Potassium 3.3 - 3.5 mEq/L 11/21/17 13:30 11/22/17 10:08 Magnesium Sulfate 2 gm/Sodium Chloride 100 ml @ 50 mls/hr UNSCH PRN IV For Magnesium 1.2 - 1.6 mg/dL 11/21/17 13:30 11/26/17 07:43 Potassium Phosphate (K-Phos) 2,000 mg Q4H PRN PO For Phosphorus < 2.5 mg/dL 11/21/17 13:30 11/26/17 12:24 Sodium Phosphate 30 mmol/Sodium Chloride 250 ml @ 42 mls/hr UNSCH PRN IV For Phosphorus < 2.5 mg/dL 11/21/17 13:30 11/26/17 15:07 Potassium Phosphate 30 mmol/ Sodium Chloride 260 ml @ 42 mls/hr UNSCH PRN IV SEE LABEL COMMENTS 11/21/17 13:30 11/25/17 11:55 Hydralazine HCl (Apresoline Inj) 10 mg Q4H PRN IV PUSH SYS BP GREATER THAN 160 MMHG 11/21/17 16:45 11/22/17 02:07 Metoprolol Tartrate (Lopressor Inj) 5 mg Q5M PRN IV PUSH HR>100 11/22/17 00:00 11/22/17 00:55 Hydromorphone HCl (Dilaudid Pf Inj) 0.5 mg Q4H PRN IV pain >5/10 11/22/17 02:45 11/27/17 12:08 Metoprolol Tartrate (Lopressor) 50 mg Q12HR PO 11/22/17 09:00 11/26/17 21:10 Famotidine (Pepcid) 10 mg BID PO 11/24/17 21:00 11/27/17 08:18 Cefepime HCl 2000 mg/Sodium Chloride 100 ml @ 200 mls/hr Q12H IV 11/24/17 20:00 11/27/17 08:19 Propofol 100 ml @ 2.04 mls/hr TITRATE PRN IV Sedation 11/25/17 12:15 11/27/17 06:11 Fentanyl Citrate 250 ml @ 5 mls/hr TITRATE PRN IV SEDATION 11/25/17 14:30 11/26/17 14:57 Fluconazole/ Sodium Chloride 100 ml @ 100 mls/hr Q24H IV 11/25/17 18:00 11/26/17 17:45 Sodium Chloride 250 ml @ 15 mls/hr ONCE ONCE IV 11/27/17 07:30 11/28/17 00:09 11/27/17 07:30 Objective Remarks GENERAL: Middle aged female, sitting up in bed, on O2 via NC SKIN: Warm and dry. HEAD: Normocephalic. NECK: Supple, trachea midline. CARDIOVASCULAR: +S1/S2 RESPIRATORY: anterior cates with occasional rhonchi. GASTROINTESTINAL: Abdomen with mild distension. non tender to palpation. EXTREMITIES: No cyanosis NEUROLOGICAL: awake. answering questions. Assessment/Plan Problem List: (1) Idiopathic thrombocytopenia purpura ICD Codes: D69.3 - Immune thrombocytopenic purpura Status: Acute Plan: 11/27: 1 unit platelets given. --platelets may be lower due to consumption and antibiotics. --had splenectomy in 2009. --was treated with Nplate in the past with good response. --per , patient's baseline is between 50-70K and she has not required treatment for ITP since spleen removal several years ago. --platelet count has been fluctuating between 40,000-70,000. --no indication to start treatment for the idiopathic thrombocytopenic purpura at this point. (2) Arterial occlusion ICD Codes: I70.90 - Unspecified atherosclerosis Plan: 11/27: AC remains on hold. monitor H/H 11/25: EGD showed erosive gastritis of the cardia. will continue to hold anticoagulation and watch H/H for now. 11/23: Argatroban placed on hold due to possible GI bleed --started on Argatroban on 11/18, tolerated well, no evidence of bleeding despite low platelet. No evidence of recurrent clot. 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 --had embolectomy in September of this year. then started on Pradaxa, but later switched to Xarelto. --presented with abdominal pain and could have ischemic bowel (3) Abdominal pain ICD Codes: R10.9 - Unspecified abdominal pain Status: Acute Plan: --EGD on 11/25 showed erosive gastritis of the cardia, possibly related to NGT injury. NGT was removed during procedure. --Cx on 11/26 showed severe colitis --presented with acute severe abdominal pain. --CT did not show any bowel obstruction. --Ultrasound also negative for occlusion or stenosis. 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 h/o Chronic anemia. Chronic back pain. Multiple compression fractures. Chronic obstructive pulmonary disease. Hypertension. Left popliteal arterial occlusion. Plan 1. give 1 unit platelets. 2. monitor H/H, platelet count 3. continue supportive care. Attending Statement The exam, history, and the medical decision-making described in the above note were completed with the assistance of the mid-level provider. I reviewed and agree with the findings presented. I attest that I had a [id number] encounter with the patient on the same day, and personally performed and documented my assessment and findings in the medical record. When I saw pt this morning, she was intubated and sedated. Colonoscopy showed severe colitis. Platelet counts trended a little lower. Not able to start anticoagulation due to GI bleed. Will give her 1 U platelet today. Continue supportive care. Problem Qualifiers (1) Abdominal pain: Qualified Codes: R10.84 - Generalized abdominal pain Keke Foster Nov 27, 2017 13:22 Braden Luong MD Nov 27, 2017 16:04
[2017-11-27] MEDS: ACETAMINOPHEN/HYDROcodone 325 MG/5 MG TAB PO PRN ×3 (15:34→22:42)
[2017-11-27] MEDS: METOPROLOL TARTRATE 5 MG/5 ML VIAL IV PUSH PRN (15:41)
--- NOTE | 2017-11-27 16:01 | HHI.PR ---
Addendum to Inpatient Note Additional Information Pt seen , examined full note to follow dw Mary Anne Cooper MD Nov 27, 2017 16:01
[2017-11-27 17:48] LABS: HEMATOCRIT 32.1 % (35.0-46.0); HEMOGLOBIN 11.1 GM/DL (11.6-15.3)
[2017-11-27] MEDS: FLUCONAZOLE 200 MG PREMIX BAG 100 ML IV SCH (18:16)
[2017-11-27 21:00] LABS: HEMOGLOBIN 11.1 GM/DL (11.6-15.3)
[2017-11-27] MEDS ORDERED: FAT EMULSION 20% INJ 250 ML (@10 mls/hr) IV SCH (22:00)
[2017-11-27] MEDS: CLINIMIX IV SCH ×8 (22:39)
[2017-11-27 23:53] LABS: MITOCHONDRIAL ABS LESS THAN 20.0 U (<=20.0)
[2017-11-28] VITALS (12 sets, daily range): BP systolic 132–160; BP diastolic 67–91; PULSE 74–96; RESP 21–36; TEMP 97.8–98.7; O2SAT 93–98
[2017-11-28] MEDS: CHLORHEXIDINE GLUCONATE 2 % 1 PACK (2 CLOTHS) TOP SCH (04:00)
[2017-11-28] MEDS: DILTIAZEM HCL 60 MG TAB PO SCH ×5 (05:38→23:32)
[2017-11-28] MEDS: RESP: BUDESONIDE 0.25 MG/2 ML NEB NEB SCH (07:18)
[2017-11-28] MEDS: DOCUSATE SODIUM 50 MG/SENNA 8.6 MG TAB PO SCH ×2 (08:21→21:00)
[2017-11-28] MEDS: RIFAXIMIN 550 MG TAB PO SCH ×2 (08:21→21:15)
[2017-11-28] MEDS: CEFEPIME INJ 2,000 MG in SODIUM CHLORIDE 0.9% INJ 100 ML IV SCH ×2 (08:21→21:15)
[2017-11-28] MEDS: METOPROLOL TARTRATE 50 MG TAB PO SCH ×2 (08:21→21:16)
[2017-11-28] MEDS: FAMOTIDINE 20 MG TAB PO SCH ×2 (08:21→21:15)
[2017-11-28] MEDS: LACTULOSE SYRUP 20 GM/30 ML CUP PO SCH (08:22)
[2017-11-28] MEDS: SODIUM CHLORIDE 0.9% FLUSH 10 ML FLUSH IV FLUSH SCH ×2 (08:22→21:00)
[2017-11-28] MEDS: TIOTROPIUM BROMIDE 18 MCG INH INH SCH (08:22)
--- NOTE | 2017-11-28 09:29 | PD.ONC.PN ---
Subjective Subjective Remarks Afebrile overnight. patient resting in bed getting cleaned up by nurse. Per nurse she has a very small amount of blood in stool. otherwise no bleeding. Objective Data Date Time Temp Pulse Resp B/P (MAP) Pulse Ox O2 Delivery O2 Flow Rate FiO2 11/28/17 07:19 96 Nasal Cannula 4.00 96 11/28/17 04:00 98.7 90 22 152/81 (104) 95 11/28/17 00:00 98.4 81 21 157/74 (101) 93 11/27/17 22:09 96 Nasal Cannula 3.00 11/27/17 20:00 98.0 104 22 164/96 (118) 94 11/27/17 18:00 97 11/27/17 16:00 99.2 94 24 165/67 (99) 93 11/27/17 16:00 94 11/27/17 14:00 106 11/27/17 12:00 98.6 97 26 128/74 (92) 95 11/27/17 12:00 97 11/27/17 10:45 93 Nasal Cannula 4 11/27/17 10:00 35 11/27/17 10:00 91 11/27/17 09:45 98.5 85 16 154/58 99 11/28/17 11/28/17 11/28/17 07:00 15:00 23:00 Intake Total 772 ml Output Total 1125 ml Balance -353 ml Result Diagram: 11/27/17203511/26/17 1300 Laboratory Results Laboratory Tests Test 11/27/17 10:59 11/27/17 17:35 11/27/17 18:30 11/27/17 20:36 Hemoglobin 11.4 GM/DL 11.1 GM/DL 11.1 GM/DL Hematocrit 33.6 % 32.1 % 32.0 % Stool C. difficile Toxin (PCR) NEGATIVE Stl C. difficile Toxin Epiderm 027 PRESUMPTIVE NEGATIVE Culture Results Microbiology Date/Time Source Procedure Growth Status 11/25/17 17:45 Sputum Endotracheal Gram Stain - Final Complete 11/25/17 17:45 Sputum Endotracheal Sputum Culture - Final HEAVY GROWTH NORMAL RESPIRATORY [place] Complete Administered Medications Medications (Trade) Dose Ordered Sig/[place] Route PRN Reason Start Time Stop Time Status Last Admin Dose Admin Sodium Chloride (NS Flush) 2 ml UNSCH PRN IV FLUSH FLUSH AFTER USING IV ACCESS 11/17/17 06:45 11/26/17 08:22 Sodium Chloride (NS Flush) 2 ml BID IV FLUSH 11/17/17 09:00 11/28/17 08:22 Acetaminophen (Tylenol) 650 mg Q6H PRN PO FEVER >101F 11/17/17 06:45 11/24/17 08:24 Albuterol/ Ipratropium (Duoneb Neb) 1 ampule Q4HR NEB PRN INH WHEEZING 11/17/17 06:45 11/26/17 23:05 Miscellaneous Information 1 Q361D XX 11/17/17 06:45 11/17/17 06:45 Chlorhexidine Gluconate (Chlorhexidine 2% Cloth) Taper DAILY@04 TOP 11/18/17 04:00 11/14/18 03:59 11/24/17 04:00 Senna/Docusate Sodium (Rita-Colace) 1 tab BID PO 11/17/17 09:00 11/28/17 08:21 Sennosides (Senokot) 17.2 mg Q12H PRN PO Moderate constipation 11/17/17 06:45 11/17/17 09:11 Lactulose (Lactulose Liq) 30 ml DAILY PRN PO SEVERE CONSITIPATION 11/17/17 06:45 11/17/17 09:11 Albuterol Sulfate (Albuterol Neb) 2.5 mg Q4HR NEB PRN NEB SHORTNESS OF BREATH 11/17/17 07:45 11/25/17 20:45 Budesonide (Pulmicort Respule Neb) 0.25 mg DAILY NEB NEB 11/17/17 08:00 11/28/17 07:18 Tiotropium [place] (Spiriva Inh) 18 mcg DAILY INH 11/17/17 09:00 11/25/17 08:14 Argatroban 250 mg/ Sodium Chloride 252.5 ml @ 1.92 mls/hr TITRATE PRN IV aPTT < 50 11/18/17 12:45 Future Hold 11/22/17 15:20 Diltiazem HCl (Cardizem) 60 mg Q6HR PO 11/20/17 12:00 11/28/17 05:38 Rifaximin (Xifaxan) 550 mg BID PO 11/20/17 21:00 11/28/17 08:21 Lactulose (Lactulose Liq) 15 ml TID PO 11/21/17 09:00 11/27/17 18:16 Potassium Chloride 100 ml @ 50 mls/hr Q2H PRN IV For Potassium 2.8 - 3.2 mEq/L 11/21/17 13:30 11/24/17 13:14 Potassium Bicarb/ Potassium Chloride (K-Lyte Cl Eff) 50 meq UNSCH PRN PO For Potassium 3.3 - 3.5 mEq/L 11/21/17 13:30 11/21/17 13:47 Potassium Chloride 100 ml @ 50 mls/hr Q2H PRN IV For Potassium 3.3 - 3.5 mEq/L 11/21/17 13:30 11/22/17 10:08 Magnesium Sulfate 2 gm/Sodium Chloride 100 ml @ 50 mls/hr UNSCH PRN IV For Magnesium 1.2 - 1.6 mg/dL 11/21/17 13:30 11/26/17 07:43 Potassium Phosphate (K-Phos) 2,000 mg Q4H PRN PO For Phosphorus < 2.5 mg/dL 11/21/17 13:30 11/26/17 12:24 Sodium Phosphate 30 mmol/Sodium Chloride 250 ml @ 42 mls/hr UNSCH PRN IV For Phosphorus < 2.5 mg/dL 11/21/17 13:30 11/26/17 15:07 Potassium Phosphate 30 mmol/ Sodium Chloride 260 ml @ 42 mls/hr UNSCH PRN IV SEE LABEL COMMENTS 11/21/17 13:30 11/25/17 11:55 Hydralazine HCl (Apresoline Inj) 10 mg Q4H PRN IV PUSH SYS BP GREATER THAN 160 MMHG 11/21/17 16:45 11/22/17 02:07 Metoprolol Tartrate (Lopressor Inj) 5 mg Q5M PRN IV PUSH HR>100 11/22/17 00:00 11/27/17 15:41 Hydromorphone HCl (Dilaudid Pf Inj) 0.5 mg Q4H PRN IV pain >5/10 11/22/17 02:45 11/27/17 12:08 Metoprolol Tartrate (Lopressor) 50 mg Q12HR PO 11/22/17 09:00 3/30/18 08:21 Famotidine (Pepcid) 10 mg BID PO 11/24/17 21:00 11/28/17 08:21 Cefepime HCl 2000 mg/Sodium Chloride 100 ml @ 200 mls/hr Q12H IV 11/24/17 20:00 11/28/17 08:21 Propofol 100 ml @ 2.04 mls/hr TITRATE PRN IV Sedation 11/25/17 12:15 11/27/17 06:11 Fentanyl Citrate 250 ml @ 5 mls/hr TITRATE PRN IV SEDATION 11/25/17 14:30 11/26/17 14:57 Fluconazole/ Sodium Chloride 100 ml @ 100 mls/hr Q24H IV 11/25/17 18:00 11/27/17 18:16 Acetaminophen/ Hydrocodone Bitart ([place] 5-325 Mg) 1 tab Q4H PRN PO PAIN 1-4 11/27/17 10:45 11/27/17 22:42 Sodium Chloride 11 meq/Sodium Acetate 59 meq/ Potassium Chloride 40 meq/ Magnesium Chloride 10 meq/ Calcium Chloride 9 meq/ Multivitamins 10 ml/Folic Acid 1 mg/Amino Acids/ Dextrose 2,074.1437 ml @ 42 mls/hr Q24H IV 11/27/17 20:00 11/27/17 22:39 Fat Emulsion Intravenous 250 ml @ 10 mls/hr Q24H IV 11/27/17 22:00 11/28/17 19:59 11/27/17 22:38 Objective Remarks GENERAL: Middle aged female, supine in bed, on 4L O2 via NC SKIN: Warm and dry. HEAD: Normocephalic. NECK: Supple, trachea midline. CARDIOVASCULAR: +S1/S2 RESPIRATORY: occasional rhonchi. GASTROINTESTINAL: Abdomen soft, nontender. EXTREMITIES: No cyanosis. mild edema, ble NEUROLOGICAL: awake but confused. moving extremities. Assessment/Plan Problem List: (1) Idiopathic thrombocytopenia purpura ICD Codes: D69.3 - Immune thrombocytopenic purpura Status: Acute Plan: --platelets may be lower due to consumption and antibiotics. --had splenectomy in 2009. --was treated with Nplate in the past with good response. --per , patient's baseline is between 50-70K and she has not required treatment for ITP since spleen removal several years ago. --platelet count has been fluctuating between 40,000-70,000. --no indication to start treatment for the idiopathic thrombocytopenic purpura at this point. (2) Arterial occlusion ICD Codes: I70.90 - Unspecified atherosclerosis Plan: 11/28: continues to have a small amount of blood in stool. hold anticoagulation 11/27: AC remains on hold. monitor H/H 11/25: EGD showed erosive gastritis of the cardia. will continue to hold anticoagulation and watch H/H for now. 11/23: Argatroban placed on hold due to possible GI bleed --started on Argatroban on 11/18, tolerated well, no evidence of bleeding despite low platelet. No evidence of recurrent clot. 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 --had embolectomy in September of this year. then started on Pradaxa, but later switched to Xarelto. --presented with abdominal pain and could have ischemic bowel (3) Abdominal pain ICD Codes: R10.9 - Unspecified abdominal pain Status: Acute Plan: --EGD on 11/25 showed erosive gastritis of the cardia, possibly related to NGT injury. NGT was removed during procedure. --Cx on 11/26 showed severe colitis --presented with acute severe abdominal pain. --CT did not show any bowel obstruction. --Ultrasound also negative for occlusion or stenosis. 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 h/o Chronic anemia. Chronic back pain. Multiple compression fractures. Chronic obstructive pulmonary disease. Hypertension. Left popliteal arterial occlusion. Plan 1. check CBC today 2. continue to hold anticoagulation. 3. supportive care. Attending Statement The exam, history, and the medical decision-making described in the above note were completed with the assistance of the mid-level provider. I reviewed and agree with the findings presented. I attest that I had a [id number] encounter with the patient on the same day, and personally performed and documented my assessment and findings in the medical record. More awake this morning. Abdominal pain has improved. Nursing staff report no blood in the stool. Had 1U platelet transfusion yesterday. Repeat CBC pending. Discussed with pt's . Problem Qualifiers (1) Abdominal pain: Qualified Codes: R10.84 - Generalized abdominal pain Keke Foster 30, 2018 09:29 Braden Luong MD Nov 28, 2017 11:55
--- NOTE | 2017-11-28 11:20 | HHI.GIFU ---
Subjective Remarks Pt resting in bed, at bedside. Per RN has had mult episodes explosive diarrhea. No blood in stool today. (Karime Montano) Objective Vitals I&O Vital Signs Date Time Temp Pulse Resp B/P (MAP) Pulse Ox O2 Delivery O2 Flow Rate FiO2 11/28/17 07:19 96 Nasal Cannula 4.00 96 11/28/17 04:00 98.7 90 22 152/81 (104) 95 11/28/17 00:00 98.4 81 21 157/74 (101) 93 11/27/17 22:09 96 Nasal Cannula 3.00 11/27/17 20:00 98.0 104 22 164/96 (118) 94 11/27/17 18:00 97 11/27/17 16:00 99.2 94 24 165/67 (99) 93 11/27/17 16:00 94 11/27/17 14:00 106 11/27/17 12:00 98.6 97 26 128/74 (92) 95 11/27/17 12:00 97 I/O 11/27/17 11/27/17 11/27/17 11/28/17 11/28/17 11/28/17 07:00 15:00 23:00 07:00 15:00 23:00 Intake Total 650 ml 231 ml 2419 ml 772 ml Output Total 350 ml 1030 ml 1125 ml Balance 300 ml 231 ml 1389 ml -353 ml Intake Oral 100 ml 120 ml IV Total 200 ml 2319 ml 652 ml Packed Cells 400 ml Platelets 211 ml Blood Product IV Normal Saline Flush 50 ml 20 ml Output Urine Total 350 ml 1000 ml 975 ml Stool Total 0 ml 30 ml 150 ml # Bowel Movements 0 Laboratory Laboratory Tests Test 11/27/17 17:35 11/27/17 18:30 11/27/17 20:36 Hemoglobin 11.1 11.1 Hematocrit 32.1 32.0 Stool C. difficile Toxin (PCR) NEGATIVE Stl C. difficile Toxin Epiderm 027 PRESUMPTIVE NEGATIVE Date/Time Source Procedure Growth Status 11/23/17 12:22 Blood Peripheral Aerobic Blood Culture - Final NO GROWTH IN 5 DAYS Complete 11/23/17 12:22 Blood Peripheral Anaerobic Blood Culture - Final NO GROWTH IN 5 DAYS Complete 11/18/17 14:25 Stool Stool Stool Occult Blood (KIM) - Final HEMOCCULT POSITIVE Complete 11/25/17 17:45 Sputum Endotracheal Gram Stain - Final Complete 11/25/17 17:45 Sputum Endotracheal Sputum Culture - Final HEAVY GROWTH NORMAL RESPIRATORY [place] Complete 11/23/17 13:45 Urine Clean Catch Urine Culture - Final Swati Glabrata Complete Imaging Last Impressions Chest X-Ray 11/26/17 0000 Signed Impressions: Service Date/Time: Sunday, November 26, 2017 04:09 - CONCLUSION: 1. Hyperinflation and bilateral hazy opacities, unchanged. Carlos Wang MD Abdomen X-Ray 11/23/17 0000 Signed Impressions: Service Date/Time: Thursday, November 23, 2017 06:14 - CONCLUSION: Nonobstructive bowel gas pattern without significant change. Ousmane Aguilar MD Brain MRI 11/20/17 1409 Signed Impressions: Service Date/Time: October 20:54 - CONCLUSION: 1. No acute intracranial abnormality. Right-sided mastoid air cell disease. No recent infarct, mass effect or shift. Roby Brito MD Lower Extremity Ultrasound 11/20/17 0000 Signed Impressions: Service Date/Time: October 11:48 - CONCLUSION: 1. No evidence of DVT. 2. Small right Stovall's cyst. Keven Lake MD Head CT 11/20/17 0000 Signed Impressions: Service Date/Time: October 11:29 - CONCLUSION: 1. Focal decreased attenuation involving the right armin consistent with lacunar infarct or ischemic change. 2. No acute hemorrhage, midline shift or extra-axial fluid collections. 3. Small fluid level within the right sphenoid sinus. Swapnil Saldaña MD Chest CT 11/19/17 0000 Signed Impressions: Service Date/Time: Sunday, November 19, 2017 17:10 - CONCLUSION: Minimal consolidative changes as above Small pleural effusions. Luis A Castillo MD FACR Abdomen/Pelvis CT 11/19/17 0000 Signed Impressions: Service Date/Time: Sunday, November 19, 2017 17:10 - CONCLUSION: Trace ascites or subcapsular fluid around liver Prominent gallbladder Luis A Castillo MD FACR Abdomen Ultrasound 11/17/17 0000 Signed Impressions: Service Date/Time: Friday, November 17, 2017 08:01 - CONCLUSION: Negative for occlusion or significant stenosis. Luis A Castillo MD FACR Physical Exam HEENT: Normocephalic; atraumatic CHEST: Irregular respirations, tachypnea CARDIAC: RRR ABDOMEN: Soft, nondistended, bowel sounds active. SKIN: Pale; no rash; no jaundice. SVP OF DIGITAL: Awake, confused (CharmaineKarime S FIELD MAP EDITOR) Assessment and Plan Plan - Abdominal pain and distention- KUB (11/17) --> No signs of obstruction, ileus or perforation. US abd SMA/Celiac --> Negative for occlusion or significant stenosis. - Anemia- macrocytic- H/H dropped to 6.7/20.2 yesterday- received one unit PRBCs- currently 05/26.9. No signs of GIB via NGT or rectal output. 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 Going down for CT abdomen/pelvis now. (11/21) Pt increasingly confused, nonverbal during exam. MRI brain done to evaluate change in mental status which showed no acute findings. Ammonia-46 possible cause of encephalopathy. Pt now on Xifaxan and Lactulose. (11/23) Remains confused and agitated. Ammonia now WNL. Unclear cause of metabolic encephalopathy. Anemia and thrombocytopenia. Drop in H/H and platelets now 17. Not stable for endoscopic procedures. SBFT ordered, pt to agitated for procedure. wanting to hold off on this at this time Liver DIAZ pending, serum mercury, Vit D A C, serum copper Reexamined at 11:28 Pt is now alert and oriented, complaining of pain but can not localize it. Per RN reports of dark red blood through NGT. Palliative care consult pending now that pt is alert and oriented and able to participate in health care decisions. Remains at very high risk for procedures and her wishes should be addressed, likely to require intubation for endoscopic procedures. Platelet replacement per hematology. SBFT (11/23) --> Nonobstructive bowel gas pattern without significant change. (11/27) S/P colonoscopy yesterday for reports of maroon colored stool. --> Severe colitis possibly secondary to C Diff colitis. Rectal ulcers etiology unclear. Descent colon and rectal biopsies. Pt with rectal bag with no stool at this time. RN aware to send stool for C. Diff testing. H/H 11.2/32.4 S/P 1 U PRBCs yesterday. Platelet tx per Dr. Luong. Pt now extubated on NC, awake but confused. Irregular breathing, this was noted prior to intubation. 11/28/17 c dif negative. having copious loose stools. todays labs pending. bx pending. no blood in stool today. Plan: await bx change lactulose to BID Monitor stool output Monitor H/H Transfuse as needed Pt has been seen and examined by myself and Dr. Sierra and this note is written on his behalf (Karime Montano) Physician Comments Patient seen and examined Agree with above Continue with current supportive care Monitor labs Biopsies come back most consistent with ischemic colitis Stool studies are negative for C. difficile At this point I would hold off on lactulose so as to slow down the diarrhea while she heals from her ischemic colitis Consideration to be made for a CTA Monitor labs (Abundio Sierra MD) Karime Montano Nov 28, 2017 11:20 Abundio Sierra MD Nov 28, 2017 23:00
[2017-11-28 11:52] LABS: CERULOPLASMIN 26 mg/dL (18-53)
[2017-11-28] MEDS: ACETAMINOPHEN/HYDROcodone 325 MG/5 MG TAB PO PRN ×3 (12:21→23:32)
[2017-11-28 12:46] LABS: AUTOMATED NEUTROPHIL # 3.5 TH/MM3 (1.8-7.7); BASOPHIL % 0.4 % (0.0-2.0); EOSINOPHIL % 0.5 % (0.0-4.0); HEMATOCRIT 33.5 % (35.0-46.0); HEMOGLOBIN 11.7 GM/DL (11.6-15.3); LYMPH % 10.5 % (9.0-44.0); LYMPHOCYTE # 0.5 TH/MM3 (1.0-4.8); MEAN CELL VOLUME 95.2 FL (80.0-100.0); MEAN CORPUSCULAR HEMOGLOBIN 33.2 PG (27.0-34.0); MEAN CORPUSCULAR HGB CONC 34.9 % (32.0-36.0); MEAN PLATELET VOLUME 10.4 FL (7.0-11.0); MONO % 11.9 % (0.0-8.0); MONOCYTE # 0.5 TH/MM3 (0-0.9); NEUT % 76.7 % (16.0-70.0); PLATELET COUNT 56 TH/MM3 (150-450); RED BLOOD COUNT 3.51 MIL/MM3 (4.00-5.30); RED CELL DISTRIBUTION WIDTH 24.5 % (11.6-17.2); WHITE BLOOD COUNT 4.5 TH/MM3 (4.0-11.0)
[2017-11-28 13:26] LABS: ALBUMIN 2.2 GM/DL (3.4-5.0); CALCIUM 6.9 MG/DL (8.5-10.1); CREATININE 1.7 MG/DL (0.50-1.00); TOTAL BILIRUBIN ADULT 0.6 MG/DL (0.2-1.0); TOTAL PROTEIN 6.3 GM/DL (6.4-8.2)
[2017-11-28 13:34] LABS: CALCIUM-PROTEIN CORRECTED 7.3 MG/DL (8.5-10.1)
[2017-11-28] MEDS ORDERED: CALCIUM GLUCONATE INJ 1 GM in SODIUM CHLORIDE 0.9% INJ 100 ML IV ONE (15:00)
[2017-11-28] MEDS: RESP: ALBUTEROL 2.5 MG/IPRATROPIUM 0.5 MG NEB (PRN) INH (15:39)
[2017-11-28] MEDS: FLUCONAZOLE 200 MG PREMIX BAG 100 ML IV SCH (17:02)
[2017-11-28 17:13] LABS: BANDS 27 % (0-6); CORRECTED NUCLEATED RBC 3 /100 WBC (0-0); DOHLE BODIES PRESENT (NONE SEEN); LYMPHOCYTES 15 % (9-44); METAMYELOCYTES 2 % (0-1); MONOCYTES 9 % (0-8); NEUTROPHIL # MANUAL DIFF 3.4 TH/MM3 (1.8-7.7); NUCLEATED RED BLOOD CELL 3 (0-0); POLYS (SEG NEUTROPHILS) 47 % (16-70)
[2017-11-28 17:14] LABS: TOXIC GRANULATION 1+ (NORMAL)
--- NOTE | 2017-11-28 18:16 | HHI.CCPN ---
Subjective Remarks/Hospital Course This is a 67-year-old female that presented to [facility], by private transportation for evaluation of severe abdominal pain. Patient states of the past week she has had constipation so last evening took laxatives ( Senokot) x 3 days, and then today had large bowel movement multiple times with development of severe lower abdominal pain. Patient had subsequently noted some abdominal distention. Patient states her abdomen is exquisitely tender with any movement. Patient also complains of some epigastric pain. 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 No report of hematemesis or coffee-ground emesis. Patient states after bowel movements no report of melena or hematochezia. Patient rates her abdominal pain 10/10 in intensity, without relief of narcotics. The patient was transferred to [facility] , critical care medicine was consulted. Subjective: 11/18: Overnight the patient was known to be oliguric, the patient received approximately 5 L of normal saline , and 500 cc of 5% albumin during the night. NG tube output approximately 700 cc since admission. The patient was noted to be mildly confused this a.m. and progressively worsened. O2 saturation was 100% ,stat ABGs performed, metabolic acidosis with a bicarbonate level of 16. Patient received 2 A of sodium bicarbonate and bicarbonate infusion was initiated. Patient also was noted to be hypocalcemic this a.m. and received 2 g of calcium gluconate. The patient was started on Argatroban infusion after discussion with Dr. Howell, plan for endoscopy tomorrow . The patient was previously on Xarelto for DVT prophylaxis.Repeat labs performed early this afternoon revealed hemoglobin of 6.7, 1 unit of PRBC being transfused. She required restraints, for patient safety. Repeat labs pending this evening posttransfusion. 11/19: Afebrile. Last evening the patient became more confused metabolic acidosis, placed on sodium bicarbonate infusion, now corrected. Patient alert, following commands. Sodium bicarbonate infusion discontinued. Patient noted to be severely anemic with hemoglobin of 6.2 received 1 unit of PRBCs, last hemoglobin 9.4, stable. Continued serial monitoring of H&H labs pending this a.m.. Patient noted to have improvement in urine output overnight. EGD placed on hold. 11/20 No events overnight. Afebrile, on 3L oxygen. 11/21 Patient is on 2L oxygen. MRI brain last night showed no acute abnormalities. Afebrile. Lethargic 11/22 Patient is on 3L oxygen. Renal function is improving with Cr: 1.47 from 1.77. On Argatroban drip. 11/23 No events overnight, On Argatroban drip. Cr: 1.16 from 1.47. 11/24 Patient is more awake, off Argatroban drip, T:100.3. 1u PRBC ordered for Hgb 6.7 this morning. 11/25 Patient is on 50% VM with good sats. Afebrile. 11/26: Remains orally intubated on mechanical ventilation, awaiting colonoscopy. 11/27: Arousable off sedation, orally intubated on mechanical ventilation. Colonoscopy showed colitis and pseudomembranes yesterday biopsies pending. Stool for C. difficile ordered. 11/28: Extubated yesterday tolerating nasal cannula. Stool for C. difficile negative Objective Vital Signs Date Time Temp Pulse Resp B/P (MAP) Pulse Ox O2 Delivery O2 Flow Rate FiO2 11/28/17 12:00 98.0 82 33 160/84 (109) 95 11/28/17 07:19 Nasal Cannula 4.00 96 Intake and Output 11/28/17 11/28/17 11/29/17 08:00 16:00 00:00 Intake Total 772 ml Output Total 1125 ml Balance -353 ml Result Diagram: 11/28/17 1108 11/28/17 1108 Imaging Last Impressions Chest X-Ray 11/23/17 0000 Signed Impressions: Service Date/Time: Thursday, November 23, 2017 10:56 - CONCLUSION: Small right pleural effusion. Scattered bibasilar atelectasis is noted. Swapnil Saldaña MD Abdomen X-Ray 11/23/17 0000 Signed Impressions: Service Date/Time: Thursday, November 23, 2017 06:14 - CONCLUSION: Nonobstructive bowel gas pattern without significant change. Ousmane Aguilar MD Brain MRI 11/20/17 1409 Signed Impressions: Service Date/Time: October 20:54 - CONCLUSION: 1. No acute intracranial abnormality. Right-sided mastoid air cell disease. No recent infarct, mass effect or shift. Roby Brito MD Lower Extremity Ultrasound 11/20/17 0000 Signed Impressions: Service Date/Time: October 11:48 - CONCLUSION: 1. No evidence of DVT. 2. Small right Stovall's cyst. Keven Lake MD Head CT 11/20/17 0000 Signed Impressions: Service Date/Time: October 11:29 - CONCLUSION: 1. Focal decreased attenuation involving the right armin consistent with lacunar infarct or ischemic change. 2. No acute hemorrhage, midline shift or extra-axial fluid collections. 3. Small fluid level within the right sphenoid sinus. Swapnil Saldaña MD Chest CT 11/19/17 0000 Signed Impressions: Service Date/Time: Sunday, November 19, 2017 17:10 - CONCLUSION: Minimal consolidative changes as above Small pleural effusions. Luis A Castillo MD FACR Abdomen/Pelvis CT 11/19/17 0000 Signed Impressions: Service Date/Time: Sunday, November 19, 2017 17:10 - CONCLUSION: Trace ascites or subcapsular fluid around liver Prominent gallbladder Luis A Castillo MD FACR Abdomen Ultrasound 11/17/17 0000 Signed Impressions: Service Date/Time: Friday, November 17, 2017 08:01 - CONCLUSION: Negative for occlusion or significant stenosis. Luis A Castillo MD FACR Objective Remarks GENERAL: This is a pale thin female lying in bed in [facility] SKIN: Warm and dry. Pale HEAD: Atraumatic. Normocephalic. EYES: Pupils equal and round. No scleral icterus. No injection or drainage. ENT: No nasal bleeding or discharge. Mucous membranes pink and moist. NECK: Trachea midline. No JVD. CARDIOVASCULAR: Tachycardic rate, regular rhythm. RESPIRATORY: Air entry decreased bilaterally at bases, clear to auscultation. GASTROINTESTINAL: Abdomen soft, non-tender, nondistended. No guarding. MUSCULOSKELETAL: Extremities without clubbing, cyanosis, or edema. No obvious deformities. NEUROLOGICAL: Awake alert, following commands, slightly confused. Moving all 4 extremities. A/P Problem List: (1) Chronic anemia ICD Code: D64.9 - Anemia, unspecified Status: Acute (2) Idiopathic thrombocytopenia purpura ICD Code: D69.3 - Immune thrombocytopenic purpura Status: Acute (3) COPD (chronic obstructive pulmonary disease) ICD Code: J44.9 - Chronic obstructive pulmonary disease, unspecified Status: Acute (4) NISHANT (acute kidney injury) ICD Code: N17.9 - Acute kidney failure, unspecified Status: Acute (5) Chronic back pain ICD Code: M54.9 - Dorsalgia, unspecified; G89.29 - Other chronic pain Status: Acute (6) Hypertension ICD Code: I10 - Essential (primary) hypertension Status: Acute (7) Acute and chronic respiratory failure with hypoxia ICD Code: J96.21 - Acute and chronic respiratory failure with hypoxia Status: Acute (8) Abdominal pain ICD Code: R10.9 - Unspecified abdominal pain Status: Acute (9) Metabolic acidemia ICD Code: E87.2 - Acidosis Status: Acute Assessment and Plan Assessment Plan Plan by systems: Neurologic: Chronic back pain 10/03 impression fractures Neurochecks per ICU protocol MRI brain 11/21 no acute abnormalities 11/20 EEG: bihemispheric slowing. There are some intermixed slow sharp waves, but no distinct paroxysmal discharges. The pattern suggests severe bilateral abnormalities, either metabolic or structural Neuro is following- Dr. Hyman Dilaudid 0.5 mg every 4 hours when necessary for breakthrough pain scale 7-10 Tylenol 650 mg every 6 hours when necessary for pain or temperature greater than 100.5 Patient on home dose [place] for pain control, resume following extubation if required. Respiratory: COPD Asthma Home O2 dependency Acute respiratory failure on mechanical ventilation Extubated on 11/27, tolerating nasal cannula home O2 dependency Continue DuoNeb, Spiriva and budesonide- home medications Aspiration precautions Cardiovascular: Hypertension Sinus tachycardia On Cardizem 60mg Q6, Lopressor 50mg Q12. Keep MAP>65mmHg Renal: NISHANT Monitor renal function, I/O's, electrolytes replacement as needed. Will need K, Phos replacement FEN/GI: Elevated LFT's ( trending down) s/p EGD 11/25 showed erosive gastritis. Colonoscopy done on 11/26 revealed colitis with possible pseudomembranes, biopsy sent. Stool for C. difficile negative. On PPN/Iipids-plan to titrate off, advance by mouth intake which is okay with GI , GI and surgery are following KUB abdomen 11/23: Non obstructive bowel gas pattern CT abd/pelvis: Trace ascites or subcapsular fluid around liver Prominent gallbladder US abdomen: Negative for occlusion or significant stenosis. rectal tube in place KUB 11/21 showed no obstruction. Wean off PPN and start PO feeds if ok with GI On Rifaximin, Lactulose monitor ammonia level ( ) ID: Funguria Pseudomembranes on colonoscopy with colitis Continue abx per ID monitor for signs of infections ( Fever, WBC). Stool for C. difficile pending BC 11/16:NGTD, pancultured 11/23 ID is following Heme History of DVT 09/2017 Chronic ITP Hematology following-Dr. Luong. s/p transfusion1 u PRBC 11/24 s/p transfuse 1u PLT pheresis 11/23, 11/27 11/17, 11/18 Transfused 1u PRBC Platelet count normally 40-70,000 Patient had left popliteal embolectomy 09/2017, Dr. Mixon and was placed on Pradaxa, patient under the care of loss prevention analyst Dr. Reyna. 11/18 Patient takes Xarelto 20mg/d, Argatroban held per Heme Doppler US LE negative for DVT Endocrine: Hyperglycemia of critical illness Glucose monitoring per ICU [id number] regimen -- SSI Prophylaxis: GI Prophylaxis Famotidine BID DVT Prophylaxis -- SCDs Patient's home med include Xarelto. Argatroban stopped per Heme Lines: Peripheral IVs 2. d/w patient's at bedside. Consult and transfer to hospitalist service for further medical management. Problem Qualifiers (1) Abdominal pain: Qualified Codes: R10.84 - Generalized abdominal pain Gurmeet Marte MD Nov 28, 2017 18:16
[2017-11-28] MEDS: POTASSIUM CHLORIDE 25 MEQ EFFERVESCENT TAB PO PRN (19:05)
[2017-11-28] MEDS ORDERED: FAT EMULSION 20% INJ 250 ML (@10 mls/hr) IV SCH (20:00)
[2017-11-28] MEDS ORDERED: LACTULOSE SYRUP 20 GM/30 ML CUP PO SCH (21:00)
[2017-11-28] MEDS: CLINIMIX IV SCH ×8 (21:25)
[2017-11-28] MEDS: VANCOMYCIN 500 MG VIAL (FOR ORAL USE ONLY) PO SCH ×2 (21:31→23:32)
[2017-11-29] VITALS (20 sets, daily range): BP systolic 118–172; BP diastolic 2–93; PULSE 79–98; RESP 28–50; TEMP 97.7–98.8; O2SAT 92–97
[2017-11-29] MEDS: CHLORHEXIDINE GLUCONATE 2 % 1 PACK (2 CLOTHS) TOP SCH (04:00)
[2017-11-29] MEDS: DILTIAZEM HCL 60 MG TAB PO SCH ×3 (06:41→17:47)
[2017-11-29] MEDS: VANCOMYCIN 500 MG VIAL (FOR ORAL USE ONLY) PO SCH ×3 (06:41→17:48)
[2017-11-29] MEDS: SODIUM CHLORIDE 0.9% FLUSH 10 ML FLUSH IV FLUSH PRN (08:01)
[2017-11-29] MEDS: FAMOTIDINE 20 MG TAB PO SCH ×2 (08:01→20:07)
[2017-11-29] MEDS: SODIUM CHLORIDE 0.9% FLUSH 10 ML FLUSH IV FLUSH SCH ×2 (08:01→20:08)
[2017-11-29] MEDS: RIFAXIMIN 550 MG TAB PO SCH ×2 (08:01→20:07)
[2017-11-29] MEDS: CEFEPIME INJ 2,000 MG in SODIUM CHLORIDE 0.9% INJ 100 ML IV SCH ×2 (08:01→20:07)
[2017-11-29] MEDS: METOPROLOL TARTRATE 50 MG TAB PO SCH ×2 (08:01→20:07)
[2017-11-29] MEDS: DOCUSATE SODIUM 50 MG/SENNA 8.6 MG TAB PO SCH (08:01)
[2017-11-29] MEDS: TIOTROPIUM BROMIDE 18 MCG INH INH SCH (08:01)
[2017-11-29] MEDS: RESP: ALBUTEROL 2.5 MG/IPRATROPIUM 0.5 MG NEB (PRN) INH (08:46)
[2017-11-29] MEDS: RESP: BUDESONIDE 0.25 MG/2 ML NEB NEB SCH (08:46)
--- NOTE | 2017-11-29 09:12 | PD.ONC.PN ---
Subjective Subjective Remarks Afebrile overnight. patient resting in bed in nad with at bedside. she remains somewhat confused but is coherent enough to answer questions such as where she is, who the president is, etc. Her reports she is more lucid today. Objective Data Date Time Temp Pulse Resp B/P (MAP) Pulse Ox O2 Delivery O2 Flow Rate FiO2 11/29/17 08:47 94 Nasal Cannula 3.00 11/29/17 06:00 82 11/29/17 04:00 97.7 85 28 160/73 (102) 92 11/29/17 04:00 85 11/29/17 02:00 84 11/29/17 00:32 28 11/29/17 00:00 98.6 86 28 147/74 (98) 95 11/29/17 00:00 86 11/28/17 22:00 84 11/28/17 21:28 98 Nasal Cannula 3.00 11/28/17 20:00 96 11/28/17 20:00 97.8 96 30 138/91 (107) 93 11/28/17 18:00 86 11/28/17 16:00 79 11/28/17 16:00 98.4 79 36 132/70 (90) 96 11/28/17 14:00 84 11/28/17 12:00 82 11/28/17 12:00 98.0 82 33 160/84 (109) 95 11/28/17 10:00 74 11/29/17 11/29/17 11/29/17 07:00 15:00 23:00 Intake Total 744 ml Output Total 500 ml Balance 244 ml Result Diagram: 11/28/17 1108 11/28/17 1108 Laboratory Results Laboratory Tests Test 11/28/17 11:08 White Blood Count 4.5 TH/MM3 Red Blood Count 3.51 MIL/MM3 Hemoglobin 11.7 GM/DL Hematocrit 33.5 % Mean Corpuscular Volume 95.2 FL Mean Corpuscular Hemoglobin 33.2 PG Mean Corpuscular Hemoglobin Concent 34.9 % Red Cell Distribution Width 24.5 % Platelet Count 56 TH/MM3 Mean Platelet Volume 10.4 FL Neutrophils (%) (Auto) 76.7 % Lymphocytes (%) (Auto) 10.5 % Monocytes (%) (Auto) 11.9 % Eosinophils (%) (Auto) 0.5 % Basophils (%) (Auto) 0.4 % Neutrophils # (Auto) 3.5 TH/MM3 Lymphocytes # (Auto) 0.5 TH/MM3 Monocytes # (Auto) 0.5 TH/MM3 Eosinophils # (Auto) 0.0 TH/MM3 Basophils # (Auto) 0.0 TH/MM3 CBC Comment AUTO DIFF Differential Total Cells Counted 100 Neutrophils % (Manual) 47 % Band Neutrophils % 27 % Lymphocytes % 15 % Monocytes % 9 % Neutrophils # (Manual) 3.4 TH/MM3 Metamyelocytes 2 % Nucleated Red Blood Cells 3 /100 WBC Differential Comment FINAL DIFF MANUAL Toxic Granulation 1+ Dohle Bodies PRESENT Platelet Estimate LOW Platelet Morphology Comment NORMAL Blood Urea Nitrogen 41 MG/DL Creatinine 1.70 MG/DL Random Glucose 142 MG/DL Total Protein 6.3 GM/DL Albumin 2.2 GM/DL Calcium Level 6.9 MG/DL Alkaline Phosphatase 75 U/L Aspartate Amino Transf (AST/SGOT) 30 U/L Alanine Aminotransferase (ALT/SGPT) 8 U/L Total Bilirubin 0.6 MG/DL Sodium Level 143 MEQ/L Potassium Level 3.3 MEQ/L Chloride Level 108 MEQ/L Carbon Dioxide Level 24.0 MEQ/L Anion Gap 11 MEQ/L Estimat Glomerular Filtration Rate 30 ML/MIN Protein Corrected Calcium 7.3 MG/DL Administered Medications Medications (Trade) Dose Ordered Sig/Colton Route PRN Reason Start Time Stop Time Status Last Admin Dose Admin Sodium Chloride (NS Flush) 2 ml UNSCH PRN IV FLUSH FLUSH AFTER USING IV ACCESS 11/17/17 06:45 11/29/17 08:01 Sodium Chloride (NS Flush) 2 ml BID IV FLUSH 11/17/17 09:00 11/29/17 08:01 Acetaminophen (Tylenol) 650 mg Q6H PRN PO FEVER >101F 11/17/17 06:45 11/24/17 08:24 Albuterol/ Ipratropium (Duoneb Neb) 1 ampule Q4HR NEB PRN INH WHEEZING 11/17/17 06:45 11/29/17 08:46 Miscellaneous Information 1 Q361D XX 11/17/17 06:45 11/17/17 06:45 Chlorhexidine Gluconate (Chlorhexidine 2% Cloth) Taper DAILY@04 TOP 11/18/17 04:00 11/14/18 03:59 11/24/17 04:00 Senna/Docusate Sodium (Rita-Colace) 1 tab BID PO 11/17/17 09:00 11/28/17 08:21 Sennosides (Senokot) 17.2 mg Q12H PRN PO Moderate constipation 11/17/17 06:45 11/17/17 09:11 Lactulose (Lactulose Liq) 30 ml DAILY PRN PO SEVERE CONSITIPATION 11/17/17 06:45 11/17/17 09:11 Albuterol Sulfate (Albuterol Neb) 2.5 mg Q4HR NEB PRN NEB SHORTNESS OF BREATH 11/17/17 07:45 11/25/17 20:45 Budesonide (Pulmicort Respule Neb) 0.25 mg DAILY NEB NEB 11/17/17 08:00 11/29/17 08:46 Tiotropium Tenino (Spiriva Inh) 18 mcg DAILY INH 11/17/17 09:00 11/29/17 08:01 Argatroban 250 mg/ Sodium Chloride 252.5 ml @ 1.92 mls/hr TITRATE PRN IV aPTT < 50 11/18/17 12:45 Future Hold 11/22/17 15:20 Diltiazem HCl (Cardizem) 60 mg Q6HR PO 11/20/17 12:00 11/29/17 06:41 Rifaximin (Xifaxan) 550 mg BID PO 11/20/17 21:00 11/29/17 08:01 Potassium Chloride 100 ml @ 50 mls/hr Q2H PRN IV For Potassium 2.8 - 3.2 mEq/L 11/21/17 13:30 11/24/17 13:14 Potassium Bicarb/ Potassium Chloride (K-Lyte Cl Eff) 50 meq UNSCH PRN PO For Potassium 3.3 - 3.5 mEq/L 11/21/17 13:30 11/28/17 19:05 Potassium Chloride 100 ml @ 50 mls/hr Q2H PRN IV For Potassium 3.3 - 3.5 mEq/L 11/21/17 13:30 11/22/17 10:08 Magnesium Sulfate 2 gm/Sodium Chloride 100 ml @ 50 mls/hr UNSCH PRN IV For Magnesium 1.2 - 1.6 mg/dL 11/21/17 13:30 11/26/17 07:43 Potassium Phosphate (K-Phos) 2,000 mg Q4H PRN PO For Phosphorus < 2.5 mg/dL 11/21/17 13:30 11/26/17 12:24 Sodium Phosphate 30 mmol/Sodium Chloride 250 ml @ 42 mls/hr UNSCH PRN IV For Phosphorus < 2.5 mg/dL 11/21/17 13:30 11/26/17 15:07 Potassium Phosphate 30 mmol/ Sodium Chloride 260 ml @ 42 mls/hr UNSCH PRN IV SEE LABEL COMMENTS 11/21/17 13:30 11/25/17 11:55 Hydralazine HCl (Apresoline Inj) 10 mg Q4H PRN IV PUSH SYS BP GREATER THAN 160 MMHG 11/21/17 16:45 11/22/17 02:07 Metoprolol Tartrate (Lopressor Inj) 5 mg Q5M PRN IV PUSH HR>100 11/22/17 00:00 11/27/17 15:41 Hydromorphone HCl (Dilaudid Pf Inj) 0.5 mg Q4H PRN IV pain >5/10 11/22/17 02:45 11/27/17 12:08 Metoprolol Tartrate (Lopressor) 50 mg Q12HR PO 11/22/17 09:00 11/29/17 08:01 Famotidine (Pepcid) 10 mg BID PO 11/24/17 21:00 11/29/17 08:01 Cefepime HCl 2000 mg/Sodium Chloride 100 ml @ 200 mls/hr Q12H IV 11/24/17 20:00 11/29/17 08:01 Propofol 100 ml @ 2.04 mls/hr TITRATE PRN IV Sedation 11/25/17 12:15 11/27/17 06:11 Fentanyl Citrate 250 ml @ 5 mls/hr TITRATE PRN IV SEDATION 11/25/17 14:30 11/26/17 14:57 Fluconazole/ Sodium Chloride 100 ml @ 100 mls/hr Q24H IV 11/25/17 18:00 11/28/17 17:02 Acetaminophen/ Hydrocodone Bitart ([place] 5-325 Mg) 1 tab Q4H PRN PO PAIN 1-4 11/27/17 10:45 11/28/17 23:32 Sodium Chloride 11 meq/Sodium Acetate 59 meq/ Potassium Chloride 40 meq/ Magnesium Chloride 10 meq/ Calcium Chloride 9 meq/ Multivitamins 10 ml/Folic Acid 1 mg/Amino Acids/ Dextrose 2,074.1437 ml @ 42 mls/hr Q24H IV 11/27/17 20:00 11/28/17 21:25 Fat Emulsion Intravenous 250 ml @ 10 mls/hr Q24H IV 11/28/17 20:00 11/28/17 21:24 Vancomycin HCl (VANCOMYCIN for oral use only) 125 mg Q6HR PO 11/28/17 19:30 11/29/17 06:41 Objective Remarks GENERAL: Middle aged female, sitting up in bed. on O2 via NC SKIN: Warm and dry. HEAD: Normocephalic. NECK: Supple, trachea midline. CARDIOVASCULAR: +S1/S2 RESPIRATORY: occasional rhonchi. GASTROINTESTINAL: Abdomen soft, nontender. EXTREMITIES: No cyanosis. bilateral pedal pulses palpable. NEUROLOGICAL: awake. oriented to place and self. normal speech. Assessment/Plan Problem List: (1) Idiopathic thrombocytopenia purpura ICD Codes: D69.3 - Immune thrombocytopenic purpura Status: Acute Plan: --platelets may be lower due to consumption and antibiotics. --had splenectomy in 2009. --was treated with Nplate in the past with good response. --per , patient's baseline is between 50-70K and she has not required treatment for ITP since spleen removal several years ago. --platelet count has been fluctuating between 40,000-70,000. --no indication to start treatment for the idiopathic thrombocytopenic purpura at this point. (2) Arterial occlusion ICD Codes: I70.90 - Unspecified atherosclerosis Plan: --currently off all anticoagulation d/t bleeding --History of left popliteal arterial occlusion, likely an embolic event. --had embolectomy in September of this year. then started on Pradaxa, but later switched to Xarelto. --presented with abdominal pain and could have ischemic bowel (3) Abdominal pain ICD Codes: R10.9 - Unspecified abdominal pain Status: Acute Plan: --EGD on 11/25 showed erosive gastritis of the cardia, possibly related to NGT injury. NGT was removed during procedure. --Cx on 11/26 showed severe colitis --presented with acute severe abdominal pain. --CT did not show any bowel obstruction. --Ultrasound also negative for occlusion or stenosis. 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 h/o Chronic anemia. Chronic back pain. Multiple compression fractures. Chronic obstructive pulmonary disease. Hypertension. Left popliteal arterial occlusion. Plan 1. await CBC today 2. continue supportive care Attending Statement The exam, history, and the medical decision-making described in the above note were completed with the assistance of the mid-level provider. I reviewed and agree with the findings presented. I attest that I had a [id number] encounter with the patient on the same day, and personally performed and documented my assessment and findings in the medical record. More awake but confused. No bleeding reported. Abdominal pain has improved. Platelet stable. Start Heparin subQ. Discussed with pt's . Problem Qualifiers (1) Abdominal pain: Qualified Codes: R10.84 - Generalized abdominal pain Keke Foster Nov 29, 2017 09:12 Braden Luong MD Nov 29, 2017 12:39
[2017-11-29 10:20] LABS: AUTOMATED NEUTROPHIL # 3.1 TH/MM3 (1.8-7.7); BASOPHIL % 0.2 % (0.0-2.0); EOSINOPHIL % 0.4 % (0.0-4.0); HEMATOCRIT 33.3 % (35.0-46.0); HEMOGLOBIN 11.3 GM/DL (11.6-15.3); LYMPH % 12.9 % (9.0-44.0); LYMPHOCYTE # 0.5 TH/MM3 (1.0-4.8); MEAN PLATELET VOLUME 10.7 FL (7.0-11.0); MONO % 9.5 % (0.0-8.0); MONOCYTE # 0.4 TH/MM3 (0-0.9); PLATELET COUNT 58 TH/MM3 (150-450); RED BLOOD COUNT 3.44 MIL/MM3 (4.00-5.30); RED CELL DISTRIBUTION WIDTH 25.1 % (11.6-17.2)
[2017-11-29 10:39] LABS: PROTHROMBIN TIME - PATIENT 10.3 SEC (9.8-11.6)
[2017-11-29 11:04] LABS: ALBUMIN 2.3 GM/DL (3.4-5.0); BICARBONATE 24.4 MEQ/L (21.0-32.0); CREATININE 1.9 MG/DL (0.50-1.00); TOTAL BILIRUBIN ADULT 0.5 MG/DL (0.2-1.0); TOTAL PROTEIN 6.7 GM/DL (6.4-8.2)
[2017-11-29 11:10] LABS: CALCIUM-PROTEIN CORRECTED 7.2 MG/DL (8.5-10.1)
[2017-11-29 11:16] LABS: BANDS 36 % (0-6); CORRECTED NUCLEATED RBC 3 /100 WBC (0-0); LYMPHOCYTES 24 % (9-44); MONOCYTES 8 % (0-8); NEUTROPHIL # MANUAL DIFF 2.7 TH/MM3 (1.8-7.7); NUCLEATED RED BLOOD CELL 3 (0-0); OVALOCYTES 1+ (NORMAL); POLYS (SEG NEUTROPHILS) 32 % (16-70)
[2017-11-29 11:17] LABS: TOXIC GRANULATION 1+ (NORMAL)
[2017-11-29] MEDS: ACETAMINOPHEN/HYDROcodone 325 MG/5 MG TAB PO PRN ×2 (11:47→17:47)
[2017-11-29] MEDS ORDERED: CALCIUM CHLORIDE INJ 1 GM in SODIUM CHLORIDE 0.9% INJ 100 ML IV ONE (12:00)
[2017-11-29] MEDS ORDERED: CALCIUM GLUCONATE INJ 2 GM in SODIUM CHLORIDE 0.9% INJ 100 ML IV ONE (12:00)
--- NOTE | 2017-11-29 14:52 | HHI.PR ---
Subjective Remarks Follow-up for mental status, diarrhea Still having loose stools. Mental status about the same, still confused, oriented to self, knows her birthday. Not oriented to place. No fever. Patient has been eating. Objective Vitals Vital Signs Date Time Temp Pulse Resp B/P (MAP) Pulse Ox O2 Delivery O2 Flow Rate FiO2 11/29/17 14:00 95 11/29/17 12:00 92 11/29/17 12:00 92 32 172/2 (58) 97 11/29/17 11:00 88 39 127/93 (104) 94 11/29/17 10:00 82 36 118/86 (97) 97 11/29/17 10:00 82 11/29/17 09:00 79 32 129/87 (101) 97 11/29/17 08:47 94 Nasal Cannula 3.00 11/29/17 08:00 86 11/29/17 08:00 98.8 87 38 125/87 (100) 96 11/29/17 07:00 83 34 156/78 (104) 96 11/29/17 06:00 82 11/29/17 04:00 97.7 85 28 160/73 (102) 92 11/29/17 04:00 85 11/29/17 02:00 84 11/29/17 00:32 28 11/29/17 00:00 98.6 86 28 147/74 (98) 95 11/29/17 00:00 86 11/28/17 22:00 84 11/28/17 21:28 98 Nasal Cannula 3.00 11/28/17 20:00 96 11/28/17 20:00 97.8 96 30 138/91 (107) 93 11/28/17 18:00 86 11/28/17 16:00 79 11/28/17 16:00 98.4 79 36 132/70 (90) 96 I/O 11/28/17 11/28/17 11/28/17 11/29/17 11/29/17 11/29/17 07:00 15:00 23:00 07:00 15:00 23:00 Intake Total 772 ml 100 ml 1341 ml 744 ml Output Total 1125 ml 1000 ml 500 ml Balance -353 ml 100 ml 341 ml 244 ml Intake Oral 120 ml 200 ml 360 ml IV Total 652 ml 100 ml 1141 ml 384 ml Output Urine Total 975 ml 1000 ml 500 ml Stool Total 150 ml Result Diagram: 11/29/17 1005 11/29/17 1005 Objective Remarks Not in distress Atraumatic Pupils equal reactive to light No nasal bleeding Regular rate and rhythm Poor air entry, clear otherwise 2+ distal extremity edema. Awake, alert, oriented to self but not to place and time. Moves extremities. A/P Assessment and Plan This is a 67-year-old female who presented with severe abdominal pain Severe abdominal pain secondary to ischemic colitis-gastroenterology and GI consulted. EGD showed erosive gastritis, colonoscopy showed pseudomembranes, biopsy showed ischemic colitis, possible CTA per GI. Still with diarrhea, stop docusate, hold lactulose. C. difficile negative. On PPI, patient tolerating diet, stop TPN. KUB unremarkable, CT of the abdomen showed trace ascites and subcapsular fluid around the prominent gallbladder. Patient still on rifaximin per GI. acute renal failure-creatinine increasing, start IVF, likely secondary to poor oral intake. Hypocalcemia-continue calcium gluconate, 2 doses today. Recheck BMP tomorrow. Chronic back pain 2/2 impression fractures, altered mental status, likely toxic metabolic encephalopathy versus delirium-MRI 11/21 unremarkable. Neurology was consulted. EEG done showed bihemispheric slowing, no paroxysmal discharges. Check ABG, ammonia is normal. Stop lactulose. Acute respiratory failure-status post extubation, oxygen dependent for COPD and asthma. Extubated 11/27, tolerating nasal cannula, continue duo nebs, Spiriva, budesonide, aspiration precautions. Hypertension, sinus tachycardia-continue Cardizem, Lopressor. Thin liquids, pured diet. Stop TPN as above. History of left popliteal arterial occlusion-hematology following, heparin subcutaneous started. Funguria-urine culture growing Swati glabrata, continue fluconazole, ID following, patient is also on cefepime. Blood culture negative, remove Valencia catheter. Chronic ITP-hematology following, status post transfusion of platelets and packed red blood cells, platelet count baseline around 40-70,000. Previously on anticoagulation with Pradaxa switch to Xarelto. Doppler ultrasound lower extremity negative for DVT. Follow-up hematology recommendations, heparin for now. Hyperglycemia of critical illness-continue sliding-scale GI Prophylaxis Famotidine BID DVT Prophylaxis: Heparin Discharge Planning Will likely need rehab on discharge. Not ready. Transfer to [facility] of ABGs within normal limits. Dixie Carmen MD Nov 29, 2017 14:52
[2017-11-29] MEDS ORDERED: GLUCAGON 1 MG/ML VIAL OTHER PRN (15:45)
--- NOTE | 2017-11-29 15:50 | HHI.GIFU ---
Subjective Remarks Family members in room Patient's eyes are open, random conversation still with altered mental status Does recognize some of her family's names Starting to eat and regain appetite Hemoglobin stable at 11.3 (Bertha Armstrong) Objective Vitals I&O Vital Signs Date Time Temp Pulse Resp B/P (MAP) Pulse Ox O2 Delivery O2 Flow Rate FiO2 11/29/17 14:00 95 11/29/17 12:00 92 11/29/17 12:00 92 32 172/2 (58) 97 11/29/17 11:00 88 39 127/93 (104) 94 11/29/17 10:00 82 36 118/86 (97) 97 11/29/17 10:00 82 11/29/17 09:00 79 32 129/87 (101) 97 11/29/17 08:47 94 Nasal Cannula 3.00 11/29/17 08:00 86 11/29/17 08:00 98.8 87 38 125/87 (100) 96 11/29/17 07:00 83 34 156/78 (104) 96 11/29/17 06:00 82 11/29/17 04:00 97.7 85 28 160/73 (102) 92 11/29/17 04:00 85 11/29/17 02:00 84 11/29/17 00:32 28 11/29/17 00:00 98.6 86 28 147/74 (98) 95 11/29/17 00:00 86 11/28/17 22:00 84 11/28/17 21:28 98 Nasal Cannula 3.00 11/28/17 20:00 96 11/28/17 20:00 97.8 96 30 138/91 (107) 93 11/28/17 18:00 86 11/28/17 16:00 79 11/28/17 16:00 98.4 79 36 132/70 (90) 96 I/O 11/28/17 11/28/17 11/28/17 11/29/17 11/29/17 11/29/17 07:00 15:00 23:00 07:00 15:00 23:00 Intake Total 772 ml 100 ml 1341 ml 744 ml 100 ml 594.3 ml Output Total 1125 ml 1000 ml 500 ml Balance -353 ml 100 ml 341 ml 244 ml 100 ml 594.3 ml Intake Oral 120 ml 200 ml 360 ml IV Total 652 ml 100 ml 1141 ml 384 ml 100 ml 594.3 ml Output Urine Total 975 ml 1000 ml 500 ml Stool Total 150 ml Laboratory Laboratory Tests Test 11/29/17 10:05 White Blood Count 4.0 Red Blood Count 3.44 Hemoglobin 11.3 Hematocrit 33.3 Mean Corpuscular Volume 97.0 Mean Corpuscular Hemoglobin 33.0 Mean Corpuscular Hemoglobin Concent 34.0 Red Cell Distribution Width 25.1 Platelet Count 58 Mean Platelet Volume 10.7 Neutrophils (%) (Auto) 77.0 Lymphocytes (%) (Auto) 12.9 Monocytes (%) (Auto) 9.5 Eosinophils (%) (Auto) 0.4 Basophils (%) (Auto) 0.2 Neutrophils # (Auto) 3.1 Lymphocytes # (Auto) 0.5 Monocytes # (Auto) 0.4 Eosinophils # (Auto) 0.0 Basophils # (Auto) 0.0 CBC Comment AUTO DIFF Differential Total Cells Counted 100 Neutrophils % (Manual) 32 Band Neutrophils % 36 Lymphocytes % 24 Monocytes % 8 Neutrophils # (Manual) 2.7 Nucleated Red Blood Cells 3 Differential Comment FINAL DIFF MANUAL Toxic Granulation 1+ Platelet Estimate LOW Platelet Morphology Comment NORMAL Ovalocytes 1+ Prothrombin Time 10.3 Prothromb Time International Ratio 1.0 Activated Partial Thromboplast Time 24.7 Fibrinogen 691 Blood Urea Nitrogen 41 Creatinine 1.90 Random Glucose 135 Total Protein 6.7 Albumin 2.3 Calcium Level 7.0 Alkaline Phosphatase 87 Aspartate Amino Transf (AST/SGOT) 27 Alanine Aminotransferase (ALT/SGPT) 9 Total Bilirubin 0.5 Sodium Level 144 Potassium Level 3.7 Chloride Level 110 Carbon Dioxide Level 24.4 Anion Gap 10 Estimat Glomerular Filtration Rate 26 Protein Corrected Calcium 7.2 Date/Time Source Procedure Growth Status 11/23/17 12:22 Blood Peripheral Aerobic Blood Culture - Final NO GROWTH IN 5 DAYS Complete 11/23/17 12:22 Blood Peripheral Anaerobic Blood Culture - Final NO GROWTH IN 5 DAYS Complete 11/18/17 14:25 Stool Stool Stool Occult Blood (KIM) - Final HEMOCCULT POSITIVE Complete 11/25/17 17:45 Sputum Endotracheal Gram Stain - Final Complete 11/25/17 17:45 Sputum Endotracheal Sputum Culture - Final HEAVY GROWTH NORMAL RESPIRATORY [place] Complete 11/23/17 13:45 Urine Clean Catch Urine Culture - Final Swati Glabrata Complete Imaging Last Impressions Chest X-Ray 11/26/17 0000 Signed Impressions: Service Date/Time: Sunday, November 26, 2017 04:09 - CONCLUSION: 1. Hyperinflation and bilateral hazy opacities, unchanged. Carlos Wang MD Abdomen X-Ray 11/23/17 0000 Signed Impressions: Service Date/Time: Thursday, November 23, 2017 06:14 - CONCLUSION: Nonobstructive bowel gas pattern without significant change. Ousmane Aguilar MD Brain MRI 11/20/17 1409 Signed Impressions: Service Date/Time: October 20:54 - CONCLUSION: 1. No acute intracranial abnormality. Right-sided mastoid air cell disease. No recent infarct, mass effect or shift. Roby Brito MD Lower Extremity Ultrasound 11/20/17 0000 Signed Impressions: Service Date/Time: October 11:48 - CONCLUSION: 1. No evidence of DVT. 2. Small right Stovall's cyst. Keven Lake MD Head CT 11/20/17 0000 Signed Impressions: Service Date/Time: October 11:29 - CONCLUSION: 1. Focal decreased attenuation involving the right armin consistent with lacunar infarct or ischemic change. 2. No acute hemorrhage, midline shift or extra-axial fluid collections. 3. Small fluid level within the right sphenoid sinus. Swapnil Saldaña MD Chest CT 11/19/17 0000 Signed Impressions: Service Date/Time: Sunday, November 19, 2017 17:10 - CONCLUSION: Minimal consolidative changes as above Small pleural effusions. Luis A Castillo MD FACR Abdomen/Pelvis CT 11/19/17 0000 Signed Impressions: Service Date/Time: Sunday, November 19, 2017 17:10 - CONCLUSION: Trace ascites or subcapsular fluid around liver Prominent gallbladder Luis A Castillo MD FACR Abdomen Ultrasound 11/17/17 0000 Signed Impressions: Service Date/Time: Friday, November 17, 2017 08:01 - CONCLUSION: Negative for occlusion or significant stenosis. Luis A Castillo MD FACR Physical Exam HEENT: Normocephalic; atraumatic CHEST: Managed breath sounds in her bases, all audible wheezing CARDIAC: Regular rate and rhythm ABDOMEN: Large, Soft, nondistended, bowel sounds soft more pronounced in the upper quadrants. SKIN: Pale; no rash; no jaundice. SENIOR SOFTWARE DEVELOPER: Awake, confused continues (Bertha Armstrong) Assessment and Plan Assessment: (1) Chronic anemia ICD Codes: D64.9 - Anemia, unspecified Status: Acute (2) Abdominal pain ICD Codes: R10.9 - Unspecified abdominal pain Status: Acute Plan Abdominal pain and distention- KUB (11/17) --> No signs of obstruction, ileus or perforation. US abd SMA/Celiac --> Negative for occlusion or significant stenosis. - Anemia- macrocytic- H/H dropped to 6.7/20.2 yesterday- received one unit PRBCs- currently . No signs of GIB via NGT or rectal output. 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 Going down for CT abdomen/pelvis now. (11/21) Pt increasingly confused, nonverbal during exam. MRI brain done to evaluate change in mental status which showed no acute findings. Ammonia-46 possible cause of encephalopathy. Pt now on Xifaxan and Lactulose. (11/23) Remains confused and agitated. Ammonia now WNL. Unclear cause of metabolic encephalopathy. Anemia and thrombocytopenia. Drop in H/H and platelets now 17. Not stable for endoscopic procedures. SBFT ordered, pt to agitated for procedure. wanting to hold off on this at this time Liver DIAZ pending, serum mercury, Vit D A C, serum copper Reexamined at 11:28 Pt is now alert and oriented, complaining of pain but can not localize it. Per RN reports of dark red blood through NGT. Palliative care consult pending now that pt is alert and oriented and able to participate in health care decisions. Remains at very high risk for procedures and her wishes should be addressed, likely to require intubation for endoscopic procedures. Platelet replacement per hematology. SBFT (11/23) --> Nonobstructive bowel gas pattern without significant change. (11/27) S/P colonoscopy yesterday for reports of maroon colored stool. --> Severe colitis possibly secondary to C Diff colitis. Rectal ulcers etiology unclear. Descent colon and rectal biopsies. Pt with rectal bag with no stool at this time. RN aware to send stool for C. Diff testing. H/H 11.2/32.4 S/P 1 U PRBCs yesterday. Platelet tx per Dr. Luong. Pt now extubated on NC, awake but confused. Irregular breathing, this was noted prior to intubation. 11/28/17 c dif negative. having copious loose stools. todays labs pending. bx pending. no blood in stool today. 11/29/17, biopsies show ischemic colitis, continues with loose incontinent diarrhea stools 1-2 large today. All Lactulose DC'd for now. Patient starting to eat small amounts of food, drinking supplements Rectal ulcer acute colitis on biopsy. TPN and lipids discontinued. Hemoglobin stable at 11.3 Plan: Patient high risk for aspiration, head of bed elevated and patient awake before eating or drinking Hydration Pepcid Monitor stool output Monitor H/H and labs Supportive care to patient and family Transfuse as needed Pt has been seen and examined by myself and Dr. Sierra and this note is written on his behalf (Bertha Armstrong) Physician Comments Patient seen and examined Agree with above Continue with current supportive care Monitor lab The extent of the ischemic colitis is not clear The degree during endoscopy was extensive Would recommend a repeat sigmoidoscopy or colonoscopy on Friday so as to assess the colon Would defer further workup for the ischemic colitis such as vascular evaluation to the critical care team (Abundio Sierra MD) Problem Qualifiers (1) Abdominal pain: Qualified Codes: R10.84 - Generalized abdominal pain Bertha Armstrong Nov 29, 2017 15:50 Abundio Sierra MD Nov 29, 2017 17:54
[2017-11-29] MEDS: SODIUM CHLOR 0.9% 1000 ML INJ 1,000 ML IV SCH (16:10)
--- NOTE | 2017-11-29 16:21 | HHI.PR ---
Addendum to Inpatient Note Additional Information pt seen around 2 pm full note to follow Mary Anne Angulo MD Nov 29, 2017 16:21
[2017-11-29] MEDS: INSULIN ASPART SUPPLEMENTAL SCALE SQ SCH ×2 (17:00→21:18)
[2017-11-29] MEDS: FLUCONAZOLE 200 MG PREMIX BAG 100 ML IV SCH (17:47)
[2017-11-29] MEDS: HEPARIN SODIUM - SQ 10,000 UNITS/ML VIAL SQ SCH (20:08)
--- NOTE | 2017-11-29 23:30 | HHI.IDPN ---
Subjective Subjective Remarks Delayed entry remains on NC O2 Very confused today! path noted: ischemic vs less likely C.diff afebrile no bleeding Antibiotics cefepime vanco po fluconazole Allergies: Coded Allergies: Sulfa (Sulfonamide Antibiotics) (Verified Allergy, Severe, Hives, 11/16/17) ciprofloxacin (Verified Allergy, Severe, Hives, 11/16/17) Objective . Vital Signs Date Time Temp Pulse Resp B/P (MAP) Pulse Ox O2 Delivery O2 Flow Rate FiO2 11/29/17 22:00 80 11/29/17 20:15 94 Nasal Cannula 3.00 11/29/17 20:00 97 11/29/17 20:00 97.8 97 28 145/76 (99) 97 11/29/17 18:00 96 47 151/80 (103) 95 11/29/17 18:00 96 11/29/17 17:00 96 35 162/74 (103) 93 11/29/17 16:00 92 11/29/17 16:00 97.8 92 35 166/87 (113) 93 11/29/17 15:00 92 33 149/70 (96) 95 11/29/17 14:00 95 11/29/17 14:00 95 42 134/79 (97) 94 11/29/17 13:00 98 50 125/86 (99) 92 11/29/17 12:00 92 11/29/17 12:00 92 32 172/2 (58) 97 11/29/17 11:00 88 39 127/93 (104) 94 11/29/17 10:00 82 36 118/86 (97) 97 11/29/17 10:00 82 11/29/17 09:00 79 32 129/87 (101) 97 11/29/17 08:47 94 Nasal Cannula 3.00 11/29/17 08:00 86 11/29/17 08:00 98.8 87 38 125/87 (100) 96 11/29/17 07:00 83 34 156/78 (104) 96 11/29/17 06:00 82 11/29/17 04:00 97.7 85 28 160/73 (102) 92 11/29/17 04:00 85 11/29/17 02:00 84 11/29/17 00:32 28 11/29/17 00:00 98.6 86 28 147/74 (98) 95 11/29/17 00:00 86 11/29/17 11/29/17 11/30/17 15:00 23:00 07:00 Intake Total 100 ml 987.3 ml Output Total 600 ml Balance 100 ml 387.3 ml Intake Oral 236 ml IV Total 100 ml 751.3 ml Output Urine Total 600 ml # Bowel Movements 2 . Laboratory Tests Test 11/28/17 11:08 11/29/17 10:05 White Blood Count 4.5 TH/MM3 4.0 TH/MM3 Red Blood Count 3.51 MIL/MM3 3.44 MIL/MM3 Hemoglobin 11.7 GM/DL 11.3 GM/DL Hematocrit 33.5 % 33.3 % Mean Corpuscular Volume 95.2 FL 97.0 FL Mean Corpuscular Hemoglobin 33.2 PG 33.0 PG Mean Corpuscular Hemoglobin Concent 34.9 % 34.0 % Red Cell Distribution Width 24.5 % 25.1 % Platelet Count 56 TH/MM3 58 TH/MM3 Mean Platelet Volume 10.4 FL 10.7 FL Neutrophils (%) (Auto) 76.7 % 77.0 % Lymphocytes (%) (Auto) 10.5 % 12.9 % Monocytes (%) (Auto) 11.9 % 9.5 % Eosinophils (%) (Auto) 0.5 % 0.4 % Basophils (%) (Auto) 0.4 % 0.2 % Neutrophils # (Auto) 3.5 TH/MM3 3.1 TH/MM3 Lymphocytes # (Auto) 0.5 TH/MM3 0.5 TH/MM3 Monocytes # (Auto) 0.5 TH/MM3 0.4 TH/MM3 Eosinophils # (Auto) 0.0 TH/MM3 0.0 TH/MM3 Basophils # (Auto) 0.0 TH/MM3 0.0 TH/MM3 CBC Comment AUTO DIFF AUTO DIFF Differential Total Cells Counted 100 100 Neutrophils % (Manual) 47 % 32 % Band Neutrophils % 27 % 36 % Lymphocytes % 15 % 24 % Monocytes % 9 % 8 % Neutrophils # (Manual) 3.4 TH/MM3 2.7 TH/MM3 Metamyelocytes 2 % Nucleated Red Blood Cells 3 /100 WBC 3 /100 WBC Differential Comment FINAL DIFF MANUAL FINAL DIFF MANUAL Toxic Granulation 1+ 1+ Dohle Bodies PRESENT Platelet Estimate LOW LOW Platelet Morphology Comment NORMAL NORMAL Ovalocytes 1+ Laboratory Tests Test 11/28/17 11:08 11/29/17 10:05 Blood Urea Nitrogen 41 MG/DL 41 MG/DL Creatinine 1.70 MG/DL 1.90 MG/DL Random Glucose 142 MG/DL 135 MG/DL Total Protein 6.3 GM/DL 6.7 GM/DL Albumin 2.2 GM/DL 2.3 GM/DL Calcium Level 6.9 MG/DL 7.0 MG/DL Alkaline Phosphatase 75 U/L 87 U/L Aspartate Amino Transf (AST/SGOT) 30 U/L 27 U/L Alanine Aminotransferase (ALT/SGPT) 8 U/L 9 U/L Total Bilirubin 0.6 MG/DL 0.5 MG/DL Sodium Level 143 MEQ/L 144 MEQ/L Potassium Level 3.3 MEQ/L 3.7 MEQ/L Chloride Level 108 MEQ/L 110 MEQ/L Carbon Dioxide Level 24.0 MEQ/L 24.4 MEQ/L Anion Gap 11 MEQ/L 10 MEQ/L Estimat Glomerular Filtration Rate 30 ML/MIN 26 ML/MIN Protein Corrected Calcium 7.3 MG/DL 7.2 MG/DL Imaging Last Impressions Chest X-Ray 11/26/17 0000 Signed Impressions: Service Date/Time: Sunday, November 26, 2017 04:09 - CONCLUSION: 1. Hyperinflation and bilateral hazy opacities, unchanged. Carlos Wang MD Abdomen X-Ray 11/23/17 0000 Signed Impressions: Service Date/Time: Thursday, November 23, 2017 06:14 - CONCLUSION: Nonobstructive bowel gas pattern without significant change. Ousmane Aguilar MD Brain MRI 11/20/17 1409 Signed Impressions: Service Date/Time: October 20:54 - CONCLUSION: 1. No acute intracranial abnormality. Right-sided mastoid air cell disease. No recent infarct, mass effect or shift. Roby Brito MD Lower Extremity Ultrasound 11/20/17 0000 Signed Impressions: Service Date/Time: October 11:48 - CONCLUSION: 1. No evidence of DVT. 2. Small right Stovall's cyst. Keven Lake MD Head CT 11/20/17 0000 Signed Impressions: Service Date/Time: October 11:29 - CONCLUSION: 1. Focal decreased attenuation involving the right armin consistent with lacunar infarct or ischemic change. 2. No acute hemorrhage, midline shift or extra-axial fluid collections. 3. Small fluid level within the right sphenoid sinus. Swapnil Saldaña MD Chest CT 11/19/17 0000 Signed Impressions: Service Date/Time: Sunday, November 19, 2017 17:10 - CONCLUSION: Minimal consolidative changes as above Small pleural effusions. Luis A Castillo MD FACR Abdomen/Pelvis CT 11/19/17 0000 Signed Impressions: Service Date/Time: Sunday, November 19, 2017 17:10 - CONCLUSION: Trace ascites or subcapsular fluid around liver Prominent gallbladder Luis A Castillo MD FACR Abdomen Ultrasound 11/17/17 0000 Signed Impressions: Service Date/Time: Friday, November 17, 2017 08:01 - CONCLUSION: Negative for occlusion or significant stenosis. Luis A Castillo MD FACR Physical Exam CONSTITUTIONAL/GENERAL: This is an adequately nourished patient, in some visible apparent distress. On vent, TUBES/LINES/DRAINS: SKIN: No jaundice, rashes, or lesions. Skin temperature appropriate. Not diaphoretic. EYES: Pupils equal and round and reactive. Extraocular motions intact. No scleral icterus. No injection or drainage. Fundi not examined. ENT: Hearing grossly normal.Orally intubated CARDIOVASCULAR: Regular rate and rhythm without murmurs, gallops, or rubs. No JVD. Peripheral pulses symmetric. RESPIRATORY/CHEST: Symmetric, unlabored respirations. Clear to auscultation. Breath sounds equal bilaterally. No wheezes, rales, or rhonchi. GASTROINTESTINAL: Abdomen soft, non-tender, nondistended. No hepato-splenomegaly , or palpable masses. No guarding. Bowel sounds present. GENITOURINARY: Without palpable bladder distension. MUSCULOSKELETAL: Extremities without clubbing, cyanosis, or edema. No joint tenderness or effusion noted. No calf tenderness. No mottling or clubbing. LYMPHATICS: No palpable cervical or supraclavicular adenopathy. NEUROLOGICAL: lethargic, easily arousable, gets easily agitated and extremely confused Moves all extremities. NOt following PSYCHIATRIC: agitated Assessment & Plan Remarks Fever, low grade - ? source UTI? - funguria Admitted with ileus, now having diarrhea aftr with laxative treatment - c.diff negative Probably ischemic colitis GIB MS change Prominent bandemia - dc oral vancomycin repeat sputum clx dc cefepime start fluconazol chk blood clx Discussed Condition With Mary Anne Salas Dr, MD Nov 29, 2017 23:30
[2017-11-30] VITALS (23 sets, daily range): BP systolic 115–178; BP diastolic 59–96; PULSE 76–97; RESP 20–55; TEMP 97.8–100; O2SAT 91–100
[2017-11-30] MEDS: DILTIAZEM HCL 60 MG TAB PO SCH ×4 (00:53→17:28)
[2017-11-30] MEDS: CHLORHEXIDINE GLUCONATE 2 % 1 PACK (2 CLOTHS) TOP SCH (04:00)
[2017-11-30 05:56] LABS: HEMATOCRIT 30.8 % (35.0-46.0); HEMOGLOBIN 10.2 GM/DL (11.6-15.3); MEAN CELL VOLUME 99.7 FL (80.0-100.0); MEAN CORPUSCULAR HGB CONC 33.1 % (32.0-36.0); MEAN PLATELET VOLUME 9.2 FL (7.0-11.0); PLATELET COUNT 26 TH/MM3 (150-450); RED BLOOD COUNT 3.09 MIL/MM3 (4.00-5.30); RED CELL DISTRIBUTION WIDTH 24.8 % (11.6-17.2); WHITE BLOOD COUNT 5.3 TH/MM3 (4.0-11.0)
[2017-11-30 06:38] LABS: BICARBONATE 23.6 MEQ/L (21.0-32.0); CALCIUM 7.4 MG/DL (8.5-10.1); CREATININE 2.01 MG/DL (0.50-1.00)
[2017-11-30 07:01] LABS: CALCIUM-PROTEIN CORRECTED 7.9 MG/DL (8.5-10.1); TOTAL PROTEIN 6.2 GM/DL (6.4-8.2)
[2017-11-30] MEDS: INSULIN ASPART SUPPLEMENTAL SCALE SQ SCH ×4 (07:10→21:00)
[2017-11-30] MEDS: TIOTROPIUM BROMIDE 18 MCG INH INH SCH (07:50)
[2017-11-30] MEDS: SODIUM CHLORIDE 0.9% FLUSH 10 ML FLUSH IV FLUSH SCH ×2 (07:50→22:03)
[2017-11-30] MEDS: METOPROLOL TARTRATE 50 MG TAB PO SCH ×2 (07:51→21:00)
[2017-11-30] MEDS: RIFAXIMIN 550 MG TAB PO SCH ×2 (07:51→21:00)
[2017-11-30] MEDS: SODIUM CHLORIDE 0.9% FLUSH 10 ML FLUSH IV FLUSH PRN (07:51)
[2017-11-30] MEDS: FAMOTIDINE 20 MG TAB PO SCH ×2 (07:51→21:00)
--- NOTE | 2017-11-30 08:07 | HHI.PR ---
Subjective Remarks in no acute distress. but confused. still with loose BM's. no fever. denies pain. d/w the RN. Objective Vitals Vital Signs Date Time Temp Pulse Resp B/P (MAP) Pulse Ox O2 Delivery O2 Flow Rate FiO2 11/30/17 06:00 96 Nasal Cannula 3.00 11/30/17 06:00 92 11/30/17 04:00 92 11/30/17 04:00 97.8 92 25 150/96 (114) 100 11/30/17 03:59 99 40 11/30/17 02:00 87 11/30/17 01:40 98 40 11/30/17 00:00 80 11/30/17 00:00 98.1 76 20 126/59 (81) 98 11/29/17 22:00 80 11/29/17 20:15 94 Nasal Cannula 3.00 11/29/17 20:00 97 11/29/17 20:00 97.8 97 28 145/76 (99) 97 11/29/17 18:00 96 47 151/80 (103) 95 11/29/17 18:00 96 11/29/17 17:00 96 35 162/74 (103) 93 11/29/17 16:00 92 11/29/17 16:00 97.8 92 35 166/87 (113) 93 11/29/17 15:00 92 33 149/70 (96) 95 11/29/17 14:00 95 11/29/17 14:00 95 42 134/79 (97) 94 11/29/17 13:00 98 50 125/86 (99) 92 11/29/17 12:00 92 11/29/17 12:00 92 32 172/2 (58) 97 11/29/17 11:00 88 39 127/93 (104) 94 11/29/17 10:00 82 36 118/86 (97) 97 11/29/17 10:00 82 11/29/17 09:00 79 32 129/87 (101) 97 11/29/17 08:47 94 Nasal Cannula 3.00 I/O 11/29/17 11/29/17 11/29/17 11/30/17 11/30/17 11/30/17 07:00 15:00 23:00 07:00 15:00 23:00 Intake Total 744 ml 100 ml 1087.3 ml 845 ml Output Total 500 ml 600 ml 250 ml Balance 244 ml 100 ml 487.3 ml 595 ml Intake Oral 360 ml 236 ml 240 ml IV Total 384 ml 100 ml 851.3 ml 605 ml Output Urine Total 500 ml 600 ml 250 ml # Bowel Movements 2 0 Result Diagram: 11/30/17 0541 11/30/17 0541 Imaging Last Impressions Chest X-Ray 11/26/17 0000 Signed Impressions: Service Date/Time: Sunday, November 26, 2017 04:09 - CONCLUSION: 1. Hyperinflation and bilateral hazy opacities, unchanged. Carlos Wang MD Abdomen X-Ray 11/23/17 0000 Signed Impressions: Service Date/Time: Thursday, November 23, 2017 06:14 - CONCLUSION: Nonobstructive bowel gas pattern without significant change. Ousmane Aguilar MD Brain MRI 11/20/17 1409 Signed Impressions: Service Date/Time: October 20:54 - CONCLUSION: 1. No acute intracranial abnormality. Right-sided mastoid air cell disease. No recent infarct, mass effect or shift. Roby Brito MD Lower Extremity Ultrasound 11/20/17 0000 Signed Impressions: Service Date/Time: October 11:48 - CONCLUSION: 1. No evidence of DVT. 2. Small right Stovall's cyst. Keven Lake MD Head CT 11/20/17 0000 Signed Impressions: Service Date/Time: October 11:29 - CONCLUSION: 1. Focal decreased attenuation involving the right armin consistent with lacunar infarct or ischemic change. 2. No acute hemorrhage, midline shift or extra-axial fluid collections. 3. Small fluid level within the right sphenoid sinus. Swapnil Saldaña MD Chest CT 11/19/17 0000 Signed Impressions: Service Date/Time: Sunday, November 19, 2017 17:10 - CONCLUSION: Minimal consolidative changes as above Small pleural effusions. Luis A Castillo MD FACR Abdomen/Pelvis CT 11/19/17 0000 Signed Impressions: Service Date/Time: Sunday, November 19, 2017 17:10 - CONCLUSION: Trace ascites or subcapsular fluid around liver Prominent gallbladder Luis A Castillo MD FACR Abdomen Ultrasound 11/17/17 0000 Signed Impressions: Service Date/Time: Friday, November 17, 2017 08:01 - CONCLUSION: Negative for occlusion or significant stenosis. Luis A Castillo MD FACR Objective Remarks GENERAL: This is a well-nourished, well-developed patient, in no apparent distress. CARDIOVASCULAR: Regular rate and regular rhythm without murmurs, gallops, or rubs. RESPIRATORY: Clear to auscultation. Breath sounds equal bilaterally. No wheezes , rales, or rhonchi. GASTROINTESTINAL: Abdomen soft, non-tender, nondistended. Normal, active bowel sounds MUSCULOSKELETAL: Extremities without clubbing, cyanosis, or edema. NEURO: Awake but confused. Procedures EGD/ colonoscopy. Medications and IVs Inpatient Medications Acetaminophen (Tylenol) 650 mg Q4H PRN PO SEE LABEL COMMENTS; Start 11/23/17 at 11:30; Stop 11/23/17 at 23:59; Status DC Acetaminophen/ Hydrocodone Bitart ([place] 5-325 Mg) 1 tab Q4H PRN PO PAIN 1-4 Last administered on 11/29/17at 17:47; Start 11/27/17 at 10:45 Albumin Human 100 ml @ 100 mls/hr Q1H IV Last administered on 11/18/17at 05:28 ; Start 11/18/17 at 03:15; Stop 11/18/17 at 08:14; Status DC Albuterol Sulfate (Albuterol Neb) 2.5 mg Q4HR NEB INH Last administered on at 03:13; Start 11/21/17 at 04:00; Stop 11/25/17 at 03:59; Status DC Albuterol/ Ipratropium (Duoneb Neb) 1 ampule Q4HR NEB PRN INH WHEEZING Last administered on 11/29/17at 08:46; Start 11/17/17 at 06:45 Argatroban 250 mg/ Dextrose 250 ml @ 1.9 mls/hr TITRATE PRN IV aPTT < 50; Start 11/18/17 at 13:30; Stop 11/18/17 at 13:30; Status DC Argatroban 250 mg/ Sodium Chloride 252.5 ml @ 1.92 mls/hr TITRATE PRN IV aPTT < 50 Last administered on 11/22/17at 15:20; Start 11/18/17 at 12:45; Stop at 12:36; Status DC Bisacodyl (Dulcolax Supp) 10 mg DAILY PRN RECTAL SEVERE CONSITIPATION; Start at 06:45 Budesonide (Pulmicort Respule Neb) 0.25 mg DAILY NEB NEB Last administered on 11/29/17at 08:46; Start 11/17/17 at 08:00 Calcium Chloride 1 gm/Sodium Chloride 110 ml @ 110 mls/hr ONCE ONCE IV ; Start 11/29/17 at 12:00; Stop 11/29/17 at 12:00; Status DC Calcium Gluconate 1 gm/Sodium Chloride 110 ml @ 110 mls/hr NOW ONCE IV Last administered on 11/28/17at 15:22; Start 11/28/17 at 15:00; Stop 11/28/17 at 15:59 ; Status DC Calcium Gluconate 2 gm/Dextrose 120 ml @ 120 mls/hr ONCE ONCE IV Last administered on 11/18/17at 17:07; Start 11/18/17 at 16:00; Stop 11/18/17 at 16:59 ; Status DC Calcium Gluconate 2 gm/Sodium Chloride 120 ml @ 120 mls/hr NOW ONCE IV Last administered on 11/29/17at 12:06; Start 11/29/17 at 12:00; Stop 11/29/17 at 12:59 ; Status DC Cefepime HCl 2000 mg/Sodium Chloride 100 ml @ 200 mls/hr Q12H IV Last administered on 11/29/17at 20:07; Start 11/24/17 at 20:00; Stop 11/29/17 at 23:33 ; Status DC Chlorhexidine Gluconate (Chlorhexidine 2% Cloth) 3 pack UNSCH PRN TOP HYGIENIC CARE; Start 11/17/17 at 06:45 Clonidine (Catapres) 0.1 mg Q6H PRN PO SYS BP GREATER THAN 160 MMHG; Start at 16:45 Dextrose (D50w (Vial) Inj) 50 ml UNSCH PRN IV PUSH HYPOGLYCEMIA-SEE COMMENTS; Start 11/29/17 at 15:45 Dextrose/Sodium Chloride 1,000 ml @ 125 mls/hr Q8H IV Last administered on at 11:44; Start 11/18/17 at 11:00; Stop 11/19/17 at 06:53; Status DC Diatrizoate Meglum/ Diatrizoate Sod ( Gastroview Liq) 18 ml ONCE ONCE PO Last administered on 11/17/17at 14:01; Start 11/17/17 at 13:30; Stop 11/17/17 at 13:31; Status DC Diltiazem HCl (Cardizem Inj) 10 mg ONCE ONCE IV Last administered on at 17:30; Start 11/20/17 at 17:30; Stop 11/20/17 at 17:31; Status DC Diltiazem HCl (Cardizem) 60 mg Q6HR PO Last administered on 11/30/17at 07:10; Start 11/20/17 at 12:00 Diphenhydramine HCl (Benadryl) 25 mg Q4H PRN PO SEE LABEL COMMENTS; Start 11/23 at 11:30; Stop 11/23/17 at 23:59; Status DC Famotidine (Pepcid Inj) 10 mg Q12HR IV PUSH Last administered on 11/24/17at 08: 24; Start 11/18/17 at 21:00; Stop 11/24/17 at 13:10; Status DC Famotidine (Pepcid) 10 mg BID PO Last administered on 11/29/17at 20:07; Start at 21:00 Fat Emulsion Intravenous 250 ml @ 10 mls/hr Q24H IV Last administered on at 21:24; Start 11/28/17 at 20:00; Stop 11/29/17 at 15:36; Status DC Fentanyl Citrate 250 ml @ 5 mls/hr TITRATE PRN IV SEDATION Last administered on 11/26/17at 14:57; Start 11/25/17 at 14:30; Stop 11/29/17 at 15:36; Status DC Fluconazole/ Sodium Chloride 100 ml @ 100 mls/hr Q24H IV Last administered on 11/29/17at 17:47; Start 11/25/17 at 18:00 Furosemide (Lasix Liq) 40 mg ONCE ONCE NG Last administered on 11/20/17at 12: 56; Start 11/20/17 at 10:00; Stop 11/20/17 at 10:46; Status DC Glucagon (Glucagon Inj) 1 mg UNSCH PRN OTHER HYPOGLYCEMIA-SEE COMMENTS; Start 11/29/17 at 15:45 Heparin Sodium (Porcine) (Heparin Inj) 5,000 units Q12HR SQ Last administered on 11/29/17at 20:08; Start 11/29/17 at 21:00 Heparin Sodium/ Dextrose 250 ml @ 0 mls/hr TITRATE PRN IV Coagulation Management; Start 11/18/17 at 12:45; Stop 11/18/17 at 12:57; Status DC Hydralazine HCl (Apresoline Inj) 10 mg Q4H PRN IV PUSH SYS BP GREATER THAN 160 MMHG Last administered on 11/22/17at 02:07; Start 11/21/17 at 16:45 Hydromorphone HCl (Dilaudid Pf Inj) 0.5 mg Q4H PRN IV pain >5/10 Last administered on 11/27/17at 12:08; Start 11/22/17 at 02:45 Insulin Aspart (NovoLOG SUPPLEMENTAL SCALE) 1 ACHS SLIDING SCALE SQ Last administered on 11/29/17at 21:18; Start 11/29/17 at 17:00 Lactulose (Lactulose Liq) 15 ml BID PO ; Start 11/28/17 at 21:00; Stop 11/28/17 at 22:58; Status DC Lorazepam (Ativan Inj) 0.125 mg NOW ONCE IV Last administered on 11/20/17at 20: 04; Start 11/20/17 at 16:30; Stop 11/20/17 at 16:31; Status DC Magnesium Hydroxide (Milk Of Magnesia Liq) 30 ml Q12H PRN PO Mild constipation ; Start 11/17/17 at 06:45 Magnesium Oxide (Mag-Ox) 800 mg UNSCH PRN PO For Magnesium 1.2 - 1.6 mg/dL; Start 11/21/17 at 13:30 Magnesium Sulfate 2 gm/Sodium Chloride 100 ml @ 50 mls/hr UNSCH PRN IV For Magnesium 1.2 - 1.6 mg/dL Last administered on 11/26/17at 07:43; Start 11/21/17 at 13:30 Magnesium Sulfate 4 gm/Sodium Chloride 100 ml @ 50 mls/hr UNSCH PRN IV For Magnesium 0.9 - 1.1 mg/dL; Start 11/21/17 at 13:30 Metoprolol Tartrate (Lopressor Inj) 5 mg Q5M PRN IV PUSH HR>100 Last administered on 11/27/17at 15:41; Start 11/22/17 at 00:00 Metoprolol Tartrate (Lopressor) 50 mg Q12HR PO Last administered on 11/29/17at 20:07; Start 11/22/17 at 09:00 Metronidazole 100 ml @ 100 mls/hr Q8H IV Last administered on 11/25/17at 12:28 ; Start 11/17/17 at 20:00; Stop 11/25/17 at 17:07; Status DC Miscellaneous Information ALL NURSING DEPARTME... UNSCH PRN .XX SEE LABEL COMMENTS; Start 11/26/17 at 17:20; Stop 11/27/17 at 17:19; Status DC Miscellaneous Medication [place] [place] [facility] [place] Discontinue all forms of heparin... ONCE ONCE OTHER ; Start 11/18/17 at 12:45; Stop 11/18/17 at 13:00; Status DC Morphine Sulfate (Morphine Inj) 1 mg ONCE ONCE IV PUSH Last administered on at 15:26; Start 11/21/17 at 15:15; Stop 11/21/17 at 15:16; Status DC Non-Formulary Medication 1 nebule BID INH ; Start 11/17/17 at 09:00; Status Future Hold Ondansetron HCl (Zofran Inj) 4 mg Q6H PRN IV PUSH NAUSEA OR VOMITING; Start at 06:45 Pantoprazole Sodium (Protonix Inj) 40 mg ONCE ONCE IVP Last administered on at 00:00; Start 11/16/17 at 23:30; Stop 11/16/17 at 23:33; Status DC Pharmacy Profile Note 0 ml @ 0 mls/hr UNSCH OTHER ; Start 11/17/17 at 07:45; Stop 11/25/17 at 17:07; Status DC Piperacillin Sod/ Tazobactam Sod 100 ml @ 200 mls/hr ONCE ONCE IV Last administered on 11/17/17at 00:01; Start 11/16/17 at 23:30; Stop 11/16/17 at 23:59 ; Status DC Polyethylene Glycol/ Electrolytes (Colyte Liq) 4,000 ml ONCE ONCE OG-TUBE Last administered on 11/25/17 21:09; Start 11/25/17 at 19:00; Stop 11/25/17 at 19:01; Status DC Potassium Phosphate (K-Phos) 2,000 mg UNSCH PRN PO/TUBE SEE LABEL COMMENTS; Start 11/21/17 at 13:30 Potassium Phosphate 30 mmol/ Sodium Chloride 260 ml @ 42 mls/hr UNSCH PRN IV SEE LABEL COMMENTS Last administered on 11/25/17at 11:55; Start 11/21/17 at 13:30 Potassium Bicarb/ Potassium Chloride (K-Lyte Cl Eff) 50 meq UNSCH PRN PO For Potassium 3.3 - 3.5 mEq/L Last administered on 11/28/17 19:05; Start 11/21/17 at 13:30 Potassium Chloride 100 ml @ 50 mls/hr Q2H PRN IV For Potassium 3.3 - 3.5 mEq/ L Last administered on 11/22/17 10:08; Start 11/21/17 at 13:30 Potassium Chloride (KCl) 20 meq ONCE ONCE PO Last administered on 11/17/17at 00 :57; Start 11/17/17 at 00:45; Stop 11/17/17 at 00:46; Status DC Propofol 100 ml @ 2.04 mls/hr TITRATE PRN IV Sedation Last administered on at 06:11; Start 11/25/17 at 12:15 Rifaximin (Xifaxan) 550 mg BID PO Last administered on 11/29/17 20:07; Start 11/20/17 at 21:00 Senna/Docusate Sodium (Rita-Colace) 1 tab BID PO Last administered on 08:21; Start 11/17/17 at 09:00; Stop 11/29/17 at 15:36; Status DC Sennosides (Senokot) 17.2 mg Q12H PRN PO Moderate constipation Last administered on 11/17/17at 09:11; Start 11/17/17 at 06:45 Sodium Bicarbonate 150 meq/Dextrose 1,000 ml @ 100 mls/hr Q10H IV Last administered on 11/18/17at 23:31; Start 11/18/17 at 13:30; Stop 11/19/17 at 06:53 ; Status DC Sodium Bicarbonate 150 meq/Sterile Water 1,000 ml @ 100 mls/hr Q10H IV ; Start 11/18/17 at 13:00; Stop 11/18/17 at 13:20; Status DC Sodium Bicarbonate (Sodium Bicarbonate 8.4% Inj) 50 meq ONCE ONCE IV PUSH Last administered on 11/18/17at 13:00; Start 11/18/17 at 13:00; Stop 11/18/17 at 13:01; Status DC Sodium Chloride 1,000 ml @ 42 mls/hr [id number] IV Last administered on at 16:10; Start 11/29/17 at 15:45 Sodium Chloride (NS Flush) 2 ml BID IV FLUSH Last administered on 11/29/17at 20: 08; Start 11/17/17 at 09:00 Sodium Chloride 5.5 meq/Sodium Acetate 29.5 meq/ Potassium Chloride 20 meq/ Magnesium Chloride 5 meq/ Calcium Chloride 4.5 meq/ Multivitamins 10 ml/Folic Acid 1 mg/Amino Acids/ Dextrose 1,042.1719 ml @ 42 mls/hr Q24H IV Last administered on 11/26/17at 21:11; Start 11/19/17 at 20:00; Stop 11/27/17 at 19:59 ; Status DC Sodium Chloride 11 meq/Sodium Acetate 59 meq/ Potassium Chloride 40 meq/ Magnesium Chloride 10 meq/ Calcium Chloride 9 meq/ Multivitamins 10 ml/Folic Acid 1 mg/Amino Acids/ Dextrose 2,074.1437 ml @ 42 mls/hr Q24H IV Last administered on 11/28/17at 21:25; Start 11/27/17 at 20:00; Stop 11/29/17 at 15:36 ; Status DC Sodium Phosphate 30 mmol/Sodium Chloride 250 ml @ 42 mls/hr UNSCH PRN IV For Phosphorus < 2.5 mg/dL Last administered on 11/26/17at 15:07; Start 11/21/17 at 13:30 Tiotropium Popejoy (Spiriva Inh) 18 mcg DAILY INH Last administered on at 08:01; Start 11/17/17 at 09:00 Vancomycin HCl (VANCOMYCIN for oral use only) 125 mg Q6HR PO Last administered on 11/29/17at 17:48; Start 11/28/17 at 19:30; Stop 11/29/17 at 23:33; Status DC Vancomycin HCl 500 mg/Sodium Chloride 100 ml @ 200 mls/hr ONCE ONCE IV Last administered on 11/17/17at 12:35; Start 11/17/17 at 12:00; Stop 11/17/17 at 12:29 ; Status DC Vancomycin HCl 1000 mg/Sodium Chloride 250 ml @ 250 mls/hr Q24H IV Last administered on 11/25/17at 14:56; Start 11/23/17 at 15:00; Stop 11/25/17 at 17:07 ; Status DC Vancomycin HCl 1250 mg/Sodium Chloride 262.5 ml @ 250 mls/hr ONCE ONCE IV Last administered on 11/22/17at 15:00; Start 11/22/17 at 15:00; Stop 11/22/17 at 16:02; Status DC Water (Free Water) 250 ml Q6H G-TUBE Last administered on 11/24/17at 02:29; Start 11/22/17 at 09:00; Stop 11/24/17 at 13:29; Status DC A/P Assessment and Plan A/P ischemic colitis- gastroenterology and GI consulted. EGD showed erosive gastritis, colonoscopy showed pseudomembranes, biopsy showed ischemic colitis, possible CTA per GI. Still with diarrhea.. C. difficile negative. On PPI, patient tolerating diet. KUB unremarkable, CT of the abdomen showed trace ascites and subcapsular fluid around the prominent gallbladder. Patient still on rifaximin per GI. evaluated by general surgery. acute renal failure-start IVF, likely secondary to poor oral intake. Hypocalcemia-improved. Chronic back pain 2/2 impression fractures, altered mental status, likely toxic metabolic encephalopathy versus delirium-MRI 11/21 unremarkable. Neurology was consulted. EEG done showed bihemispheric slowing, no paroxysmal discharges. Stop lactulose. Acute respiratory failure-status post extubation, oxygen dependent for COPD and asthma. Extubated 11/27, tolerating nasal cannula, continue duo nebs, Spiriva, budesonide, aspiration precautions. will consult pulmonary. Hypertension, sinus tachycardia-continue Cardizem, Lopressor. History of left popliteal arterial occlusion-hematology following, heparin subcutaneous started. Funguria-urine culture growing Swati glabrata, continue fluconazole, ID following. Chronic ITP-hematology following, status post transfusion of platelets and packed red blood cells, platelet count baseline around 40-70,000. Previously on anticoagulation with Pradaxa switch to Xarelto. Doppler ultrasound lower extremity negative for DVT. Follow-up hematology recommendations, heparin for now. Hyperglycemia of critical illness-continue sliding-scale GI Prophylaxis Famotidine BID DVT Prophylaxis: Heparin will observe in ICU for now. Brian Cee MD Nov 30, 2017 08:07
[2017-11-30] MEDS: RESP: BUDESONIDE 0.25 MG/2 ML NEB NEB SCH (08:58)
[2017-11-30] MEDS: RESP: ALBUTEROL 2.5 MG/IPRATROPIUM 0.5 MG NEB (PRN) INH (08:58)
--- NOTE | 2017-11-30 08:59 | PD.ONC.PN ---
Subjective Subjective Remarks Afebrile overnight. Patient resting in bed. remains confused. no change since yesterday. Objective Data Date Time Temp Pulse Resp B/P (MAP) Pulse Ox O2 Delivery O2 Flow Rate FiO2 11/30/17 06:00 96 Nasal Cannula 3.00 11/30/17 06:00 92 11/30/17 04:00 92 11/30/17 04:00 97.8 92 25 150/96 (114) 100 11/30/17 03:59 99 40 11/30/17 02:00 87 11/30/17 01:40 98 40 11/30/17 00:00 80 11/30/17 00:00 98.1 76 20 126/59 (81) 98 11/29/17 22:00 80 11/29/17 20:15 94 Nasal Cannula 3.00 11/29/17 20:00 97 11/29/17 20:00 97.8 97 28 145/76 (99) 97 11/29/17 18:00 96 47 151/80 (103) 95 11/29/17 18:00 96 11/29/17 17:00 96 35 162/74 (103) 93 11/29/17 16:00 92 11/29/17 16:00 97.8 92 35 166/87 (113) 93 11/29/17 15:00 92 33 149/70 (96) 95 11/29/17 14:00 95 11/29/17 14:00 95 42 134/79 (97) 94 11/29/17 13:00 98 50 125/86 (99) 92 11/29/17 12:00 92 11/29/17 12:00 92 32 172/2 (58) 97 11/29/17 11:00 88 39 127/93 (104) 94 11/29/17 10:00 82 36 118/86 (97) 97 11/29/17 10:00 82 11/29/17 09:00 79 32 129/87 (101) 97 11/30/17 11/30/17 11/30/17 07:00 15:00 23:00 Intake Total 845 ml Output Total 250 ml Balance 595 ml Result Diagram: 11/30/17 0541 11/30/17 0541 Laboratory Results Laboratory Tests Test 11/29/17 10:05 11/29/17 16:20 11/30/17 01:04 11/30/17 05:41 White Blood Count 4.0 TH/MM3 5.3 TH/MM3 Red Blood Count 3.44 MIL/MM3 3.09 MIL/MM3 Hemoglobin 11.3 GM/DL 10.2 GM/DL Hematocrit 33.3 % 30.8 % Mean Corpuscular Volume 97.0 FL 99.7 FL Mean Corpuscular Hemoglobin 33.0 PG 33.0 PG Mean Corpuscular Hemoglobin Concent 34.0 % 33.1 % Red Cell Distribution Width 25.1 % 24.8 % Platelet Count 58 TH/MM3 26 TH/MM3 Mean Platelet Volume 10.7 FL 9.2 FL Neutrophils (%) (Auto) 77.0 % Lymphocytes (%) (Auto) 12.9 % Monocytes (%) (Auto) 9.5 % Eosinophils (%) (Auto) 0.4 % Basophils (%) (Auto) 0.2 % Neutrophils # (Auto) 3.1 TH/MM3 Lymphocytes # (Auto) 0.5 TH/MM3 Monocytes # (Auto) 0.4 TH/MM3 Eosinophils # (Auto) 0.0 TH/MM3 Basophils # (Auto) 0.0 TH/MM3 CBC Comment AUTO DIFF Differential Total Cells Counted 100 Neutrophils % (Manual) 32 % Band Neutrophils % 36 % Lymphocytes % 24 % Monocytes % 8 % Neutrophils # (Manual) 2.7 TH/MM3 Nucleated Red Blood Cells 3 /100 WBC Differential Comment FINAL DIFF MANUAL Toxic Granulation 1+ Platelet Estimate LOW Platelet Morphology Comment NORMAL Ovalocytes 1+ Prothrombin Time 10.3 SEC Prothromb Time International Ratio 1.0 RATIO Activated Partial Thromboplast Time 24.7 SEC Fibrinogen 691 mg/dL Blood Urea Nitrogen 41 MG/DL 44 MG/DL Creatinine 1.90 MG/DL 2.01 MG/DL Random Glucose 135 MG/DL 109 MG/DL Total Protein 6.7 GM/DL 6.2 GM/DL Albumin 2.3 GM/DL Calcium Level 7.0 MG/DL 7.4 MG/DL Alkaline Phosphatase 87 U/L Aspartate Amino Transf (AST/SGOT) 27 U/L Alanine Aminotransferase (ALT/SGPT) 9 U/L Total Bilirubin 0.5 MG/DL Sodium Level 144 MEQ/L 144 MEQ/L Potassium Level 3.7 MEQ/L 3.8 MEQ/L Chloride Level 110 MEQ/L 112 MEQ/L Carbon Dioxide Level 24.4 MEQ/L 23.6 MEQ/L Anion Gap 10 MEQ/L 8 MEQ/L Estimat Glomerular Filtration Rate 26 ML/MIN 25 ML/MIN Protein Corrected Calcium 7.2 MG/DL 7.9 MG/DL Blood Gas Puncture Site RT RADIAL RT RADIAL Blood Gas Patient Temperature 98.6 98.6 Blood Gas HCO3 23 mmol/L 24 mmol/L Blood Gas Base Excess -1.4 mmol/L -2.4 mmol/L Blood Gas Oxygen Saturation 95 % 97 % Arterial Blood pH 7.35 7.24 Arterial Blood Partial Pressure CO2 44 mmHg 58 mmHg Arterial Blood Partial Pressure O2 99 mmHg 170 mmHg Arterial Blood Oxygen Content 14.2 Vol % 14.3 Vol % Arterial Blood Carboxyhemoglobin 1.3 % 1.0 % Arterial Blood Methemoglobin 1.2 % 1.4 % Blood Gas Hemoglobin 10.5 G/DL 10.3 G/DL Oxygen Delivery Device NASAL CANNULA NASAL CANNULA Blood Gas Liter Flow 3 L/M 4 L/M Administered Medications Medications (Trade) Dose Ordered Sig/Colton Route PRN Reason Start Time Stop Time Status Last Admin Dose Admin Sodium Chloride (NS Flush) 2 ml UNSCH PRN IV FLUSH FLUSH AFTER USING IV ACCESS 11/17/17 06:45 11/30/17 07:51 Sodium Chloride (NS Flush) 2 ml BID IV FLUSH 11/17/17 09:00 11/30/17 07:50 Acetaminophen (Tylenol) 650 mg Q6H PRN PO FEVER >101F 11/17/17 06:45 11/24/17 08:24 Albuterol/ Ipratropium (Duoneb Neb) 1 ampule Q4HR NEB PRN INH WHEEZING 11/17/17 06:45 11/29/17 08:46 Miscellaneous Information 1 Q361D XX 11/17/17 06:45 11/17/17 06:45 Chlorhexidine Gluconate (Chlorhexidine 2% Cloth) Taper DAILY@04 TOP 11/18/17 04:00 11/14/18 03:59 11/24/17 04:00 Sennosides (Senokot) 17.2 mg Q12H PRN PO Moderate constipation 11/17/17 06:45 11/17/17 09:11 Albuterol Sulfate (Albuterol Neb) 2.5 mg Q4HR NEB PRN NEB SHORTNESS OF BREATH 11/17/17 07:45 3/27/18 20:45 Budesonide (Pulmicort Respule Neb) 0.25 mg DAILY NEB NEB 11/17/17 08:00 11/29/17 08:46 Tiotropium [place] (Spiriva Inh) 18 mcg DAILY INH 11/17/17 09:00 11/30/17 07:50 Diltiazem HCl (Cardizem) 60 mg Q6HR PO 11/20/17 12:00 11/30/17 07:10 Rifaximin (Xifaxan) 550 mg BID PO 11/20/17 21:00 11/30/17 07:51 Potassium Phosphate (K-Phos) 2,000 mg Q4H PRN PO For Phosphorus < 2.5 mg/dL 11/21/17 13:30 11/26/17 12:24 Sodium Phosphate 30 mmol/Sodium Chloride 250 ml @ 42 mls/hr UNSCH PRN IV For Phosphorus < 2.5 mg/dL 11/21/17 13:30 11/26/17 15:07 Hydralazine HCl (Apresoline Inj) 10 mg Q4H PRN IV PUSH SYS BP GREATER THAN 160 MMHG 11/21/17 16:45 11/22/17 02:07 Metoprolol Tartrate (Lopressor Inj) 5 mg Q5M PRN IV PUSH HR>100 11/22/17 00:00 11/27/17 15:41 Hydromorphone HCl (Dilaudid Pf Inj) 0.5 mg Q4H PRN IV pain >5/10 11/22/17 02:45 11/27/17 12:08 Metoprolol Tartrate (Lopressor) 50 mg Q12HR PO 11/22/17 09:00 11/30/17 07:51 Famotidine (Pepcid) 10 mg BID PO 11/24/17 21:00 11/30/17 07:51 Propofol 100 ml @ 2.04 mls/hr TITRATE PRN IV Sedation 11/25/17 12:15 11/27/17 06:11 Fluconazole/ Sodium Chloride 100 ml @ 100 mls/hr Q24H IV 11/25/17 18:00 11/29/17 17:47 Acetaminophen/ Hydrocodone Bitart ([place] 5-325 Mg) 1 tab Q4H PRN PO PAIN 1-4 11/27/17 10:45 11/29/17 17:47 Heparin Sodium (Porcine) (Heparin Inj) 5,000 units Q12HR SQ 11/29/17 21:00 11/29/17 20:08 Insulin Aspart (NovoLOG SUPPLEMENTAL SCALE) 1 ACHS SLIDING SCALE SQ 11/29/17 17:00 11/29/17 21:18 Sodium Chloride 1,000 ml @ 42 mls/hr [id number] IV 11/29/17 15:45 11/29/17 16:10 Objective Remarks GENERAL: Middle aged female, upright in bed. SKIN: Warm and dry. HEAD: Normocephalic. NECK: Supple, trachea midline. CARDIOVASCULAR: +S1/S2 RESPIRATORY:anterior cates clear. GASTROINTESTINAL: Abdomen soft, nontender. EXTREMITIES: No cyanosis. pedal pulses palpable bilaterally. NEUROLOGICAL: awake. answering questions. oriented to self. Assessment/Plan Problem List: (1) Idiopathic thrombocytopenia purpura ICD Codes: D69.3 - Immune thrombocytopenic purpura Status: Acute Plan: --platelets may be lower due to consumption and antibiotics. --had splenectomy in 2009. --was treated with Nplate in the past with good response. --per , patient's baseline is between 50-70K and she has not required treatment for ITP since spleen removal several years ago. --platelet count has been fluctuating between 40,000-70,000. --no indication to start treatment for the idiopathic thrombocytopenic purpura at this point. (2) Arterial occlusion ICD Codes: I70.90 - Unspecified atherosclerosis Plan: --started back on heparin prophylaxis on 11/29 --History of left popliteal arterial occlusion, likely an embolic event. --had embolectomy in September of this year. then started on Pradaxa, but later switched to Xarelto. --presented with abdominal pain and could have ischemic bowel (3) Abdominal pain ICD Codes: R10.9 - Unspecified abdominal pain Status: Resolved Plan: --EGD on 11/25 showed erosive gastritis of the cardia, possibly related to NGT injury. NGT was removed during procedure. --Cx on 11/26 showed severe colitis --presented with acute severe abdominal pain. --CT did not show any bowel obstruction. --Ultrasound also negative for occlusion or stenosis. 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 h/o Chronic anemia. Chronic back pain. Multiple compression fractures. Chronic obstructive pulmonary disease. Hypertension. Left popliteal arterial occlusion. Plan 1. monitor H/H, platelet count 2. continue heparin prophylaxis. Attending Statement The exam, history, and the medical decision-making described in the above note were completed with the assistance of the mid-level provider. I reviewed and agree with the findings presented. I attest that I had a [id number] encounter with the patient on the same day, and personally performed and documented my assessment and findings in the medical record. Pt is very confused. She is arousable but not following command. Hgb and platelet trended lower but no report of bleeding. Will get CT head to r/o bleed. Give platelet 1U.Discussed with nursing staff. Problem Qualifiers (1) Abdominal pain: Qualified Codes: R10.84 - Generalized abdominal pain Keke Foster Nov 30, 2017 08:59 Braden Luong MD Nov 30, 2017 11:52
[2017-11-30] MEDS: HEPARIN SODIUM - SQ 10,000 UNITS/ML VIAL SQ SCH (09:00)
--- NOTE | 2017-11-30 10:15 | HHI.IDPN ---
Subjective Subjective Remarks ID COVERAGE 67 yo female with ITP sp spelnectomy started to have again low grade plts presented on 11/26 wtih 1 week of adominal pain, constipation CT A/P showed diffuse ileus pt is now having diarrhea with laxatives stool is hem+ she also developped fever during hospitalisation She did not have fever prior to presentation admission blood clx are negative UA on admission was negative, but repeat one showed some pyuria, though clx are negative CXR showed Bibasilar infiltrates, left greater than right. Notes reviewed D/W RN Patient remains very confused, encephalopathic in room Used BIPAP last night On nasal Os, sats ok Has diarrhea Temps ok Antibiotics fluconazole Current Medications Medications (Trade) Dose Ordered Sig/Colton Route Start Time Stop Time Status Last Admin (NS Flush) 2 ml UNSCH PRN IV FLUSH 11/17/17 06:45 11/30/17 07:51 (NS Flush) 2 ml BID IV FLUSH 11/17/17 09:00 11/30/17 07:50 (Tylenol) 650 mg Q6H PRN PO 11/17/17 06:45 11/24/17 08:24 (Zofran Inj) 4 mg Q6H PRN IV PUSH 11/17/17 06:45 (Duoneb Neb) 1 ampule Q4HR NEB PRN INH 11/17/17 06:45 11/30/17 08:58 Miscellaneous Information 1 Q361D XX 11/17/17 06:45 11/17/17 06:45 (Chlorhexidine 2% Cloth) Taper DAILY@04 TOP 11/18/17 04:00 11/14/18 03:59 11/24/17 04:00 (Chlorhexidine 2% Cloth) 3 pack UNSCH PRN TOP 11/17/17 06:45 (Milk Of Magnesia Liq) 30 ml Q12H PRN PO 11/17/17 06:45 (Senokot) 17.2 mg Q12H PRN PO 11/17/17 06:45 11/17/17 09:11 (Dulcolax Supp) 10 mg DAILY PRN RECTAL 11/17/17 06:45 (Albuterol Neb) 2.5 mg Q4HR NEB PRN NEB 11/17/17 07:45 11/25/17 20:45 (Pulmicort Respule Neb) 0.25 mg DAILY NEB NEB 11/17/17 08:00 11/30/17 08:58 (Spiriva Inh) 18 mcg DAILY INH 11/17/17 09:00 11/30/17 07:50 Non-Formulary Medication 1 nebule BID INH 11/17/17 09:00 Future Hold (Cardizem) 60 mg Q6HR PO 11/20/17 12:00 11/30/17 07:10 (Xifaxan) 550 mg BID PO 11/20/17 21:00 11/30/17 07:51 (K-Phos) 2,000 mg Q4H PRN PO 11/21/17 13:30 11/26/17 12:24 Sodium Phosphate 30 mmol/Sodium Chloride 250 ml @ 42 mls/hr UNSCH PRN IV 11/21/17 13:30 11/26/17 15:07 (Catapres) 0.1 mg Q6H PRN PO 11/21/17 16:45 (Apresoline Inj) 10 mg Q4H PRN IV PUSH 11/21/17 16:45 11/22/17 02:07 (Lopressor Inj) 5 mg Q5M PRN IV PUSH 11/22/17 00:00 11/27/17 15:41 (Dilaudid Pf Inj) 0.5 mg Q4H PRN IV 11/22/17 02:45 11/27/17 12:08 (Lopressor) 50 mg Q12HR PO 11/22/17 09:00 11/30/17 07:51 (Pepcid) 10 mg BID PO 11/24/17 21:00 11/30/17 07:51 Propofol 100 ml @ 2.04 mls/hr TITRATE PRN IV 11/25/17 12:15 11/27/17 06:11 Fluconazole/ Sodium Chloride 100 ml @ 100 mls/hr Q24H IV 11/25/17 18:00 11/29/17 17:47 ([place] 5-325 Mg) 1 tab Q4H PRN PO 11/27/17 10:45 11/29/17 17:47 (Heparin Inj) 5,000 units Q12HR SQ 11/29/17 21:00 11/29/17 20:08 (D50w (Vial) Inj) 50 ml UNSCH PRN IV PUSH 11/29/17 15:45 (Glucagon Inj) 1 mg UNSCH PRN OTHER 11/29/17 15:45 (NovoLOG SUPPLEMENTAL SCALE) 1 ACHS SLIDING SCALE SQ 11/29/17 17:00 11/29/17 21:18 Sodium Chloride 1,000 ml @ 42 mls/hr [id number] IV 11/29/17 15:45 11/29/17 16:10 Allergies: Coded Allergies: Sulfa (Sulfonamide Antibiotics) (Verified Allergy, Severe, Hives, 11/16/17) ciprofloxacin (Verified Allergy, Severe, Hives, 11/16/17) Objective . Vital Signs Date Time Temp Pulse Resp B/P (MAP) Pulse Ox O2 Delivery O2 Flow Rate FiO2 11/30/17 09:00 79 27 158/78 (104) 95 11/30/17 09:00 96 Nasal Cannula 2.00 11/30/17 08:00 91 11/30/17 08:00 98.3 91 30 155/76 (102) 97 11/30/17 07:00 96 27 178/82 (114) 99 11/30/17 06:00 96 Nasal Cannula 3.00 11/30/17 06:00 92 11/30/17 04:00 92 11/30/17 04:00 97.8 92 25 150/96 (114) 100 11/30/17 03:59 99 40 11/30/17 02:00 87 11/30/17 01:40 98 40 11/30/17 00:00 80 11/30/17 00:00 98.1 76 20 126/59 (81) 98 11/29/17 22:00 80 11/29/17 20:15 94 Nasal Cannula 3.00 11/29/17 20:00 97 11/29/17 20:00 97.8 97 28 145/76 (99) 97 11/29/17 18:00 96 47 151/80 (103) 95 11/29/17 18:00 96 11/29/17 17:00 96 35 162/74 (103) 93 11/29/17 16:00 92 11/29/17 16:00 97.8 92 35 166/87 (113) 93 11/29/17 15:00 92 33 149/70 (96) 95 11/29/17 14:00 95 11/29/17 14:00 95 42 134/79 (97) 94 11/29/17 13:00 98 50 125/86 (99) 92 11/29/17 12:00 92 11/29/17 12:00 92 32 172/2 (58) 97 11/29/17 11:00 88 39 127/93 (104) 94 . Laboratory Tests Test 11/28/17 11:08 11/29/17 10:05 11/30/17 05:41 White Blood Count 4.5 TH/MM3 4.0 TH/MM3 5.3 TH/MM3 Red Blood Count 3.51 MIL/MM3 3.44 MIL/MM3 3.09 MIL/MM3 Hemoglobin 11.7 GM/DL 11.3 GM/DL 10.2 GM/DL Hematocrit 33.5 % 33.3 % 30.8 % Mean Corpuscular Volume 95.2 FL 97.0 FL 99.7 FL Mean Corpuscular Hemoglobin 33.2 PG 33.0 PG 33.0 PG Mean Corpuscular Hemoglobin Concent 34.9 % 34.0 % 33.1 % Red Cell Distribution Width 24.5 % 25.1 % 24.8 % Platelet Count 56 TH/MM3 58 TH/MM3 26 TH/MM3 Mean Platelet Volume 10.4 FL 10.7 FL 9.2 FL Neutrophils (%) (Auto) 76.7 % 77.0 % Lymphocytes (%) (Auto) 10.5 % 12.9 % Monocytes (%) (Auto) 11.9 % 9.5 % Eosinophils (%) (Auto) 0.5 % 0.4 % Basophils (%) (Auto) 0.4 % 0.2 % Neutrophils # (Auto) 3.5 TH/MM3 3.1 TH/MM3 Lymphocytes # (Auto) 0.5 TH/MM3 0.5 TH/MM3 Monocytes # (Auto) 0.5 TH/MM3 0.4 TH/MM3 Eosinophils # (Auto) 0.0 TH/MM3 0.0 TH/MM3 Basophils # (Auto) 0.0 TH/MM3 0.0 TH/MM3 CBC Comment AUTO DIFF AUTO DIFF Differential Total Cells Counted 100 100 Neutrophils % (Manual) 47 % 32 % Band Neutrophils % 27 % 36 % Lymphocytes % 15 % 24 % Monocytes % 9 % 8 % Neutrophils # (Manual) 3.4 TH/MM3 2.7 TH/MM3 Metamyelocytes 2 % Nucleated Red Blood Cells 3 /100 WBC 3 /100 WBC Differential Comment FINAL DIFF MANUAL FINAL DIFF MANUAL Toxic Granulation 1+ 1+ Dohle Bodies PRESENT Platelet Estimate LOW LOW Platelet Morphology Comment NORMAL NORMAL Ovalocytes 1+ Laboratory Tests Test 11/28/17 11:08 11/29/17 10:05 11/30/17 05:41 Blood Urea Nitrogen 41 MG/DL 41 MG/DL 44 MG/DL Creatinine 1.70 MG/DL 1.90 MG/DL 2.01 MG/DL Random Glucose 142 MG/DL 135 MG/DL 109 MG/DL Total Protein 6.3 GM/DL 6.7 GM/DL 6.2 GM/DL Albumin 2.2 GM/DL 2.3 GM/DL Calcium Level 6.9 MG/DL 7.0 MG/DL 7.4 MG/DL Alkaline Phosphatase 75 U/L 87 U/L Aspartate Amino Transf (AST/SGOT) 30 U/L 27 U/L Alanine Aminotransferase (ALT/SGPT) 8 U/L 9 U/L Total Bilirubin 0.6 MG/DL 0.5 MG/DL Sodium Level 143 MEQ/L 144 MEQ/L 144 MEQ/L Potassium Level 3.3 MEQ/L 3.7 MEQ/L 3.8 MEQ/L Chloride Level 108 MEQ/L 110 MEQ/L 112 MEQ/L Carbon Dioxide Level 24.0 MEQ/L 24.4 MEQ/L 23.6 MEQ/L Anion Gap 11 MEQ/L 10 MEQ/L 8 MEQ/L Estimat Glomerular Filtration Rate 30 ML/MIN 26 ML/MIN 25 ML/MIN Protein Corrected Calcium 7.3 MG/DL 7.2 MG/DL 7.9 MG/DL Imaging Last Impressions Chest X-Ray 11/26/17 0000 Signed Impressions: Service Date/Time: Sunday, November 26, 2017 04:09 - CONCLUSION: 1. Hyperinflation and bilateral hazy opacities, unchanged. Carlos Wang MD Abdomen X-Ray 11/23/17 0000 Signed Impressions: Service Date/Time: Thursday, November 23, 2017 06:14 - CONCLUSION: Nonobstructive bowel gas pattern without significant change. Ousmane Aguilar MD Brain MRI 11/20/17 1409 Signed Impressions: Service Date/Time: October 20:54 - CONCLUSION: 1. No acute intracranial abnormality. Right-sided mastoid air cell disease. No recent infarct, mass effect or shift. Roby Brito MD Lower Extremity Ultrasound 11/20/17 0000 Signed Impressions: Service Date/Time: October 11:48 - CONCLUSION: 1. No evidence of DVT. 2. Small right Stovall's cyst. Keven Lake MD Head CT 11/20/17 0000 Signed Impressions: Service Date/Time: October 11:29 - CONCLUSION: 1. Focal decreased attenuation involving the right armin consistent with lacunar infarct or ischemic change. 2. No acute hemorrhage, midline shift or extra-axial fluid collections. 3. Small fluid level within the right sphenoid sinus. Swapnil Saldaña MD Chest CT 11/19/17 0000 Signed Impressions: Service Date/Time: Sunday, November 19, 2017 17:10 - CONCLUSION: Minimal consolidative changes as above Small pleural effusions. Luis A Castillo MD FACR Abdomen/Pelvis CT 11/19/17 0000 Signed Impressions: Service Date/Time: Sunday, November 19, 2017 17:10 - CONCLUSION: Trace ascites or subcapsular fluid around liver Prominent gallbladder Luis A Castillo MD FACR Abdomen Ultrasound 11/17/17 0000 Signed Impressions: Service Date/Time: Friday, November 17, 2017 08:01 - CONCLUSION: Negative for occlusion or significant stenosis. Luis A Castillo MD FACR Physical Exam CONSTITUTIONAL/GENERAL: Awake, very confused, not following commands SKIN: No jaundice, rashes, or lesions. Skin temperature appropriate. Not diaphoretic. EYES: Pupils equal and round and reactive. Extraocular motions intact. No scleral icterus. No injection or drainage. Fundi not examined. ENT: Hearing grossly normal.Orally intubated CARDIOVASCULAR: Regular rate and rhythm without murmurs, gallops, or rubs. No JVD. Peripheral pulses symmetric. RESPIRATORY/CHEST: Symmetric, unlabored respirations. Clear to auscultation. Breath sounds equal bilaterally. No wheezes, rales, or rhonchi. GASTROINTESTINAL: Abdomen soft, non-tender, nondistended. No hepato-splenomegaly , or palpable masses. No guarding. Bowel sounds present. GENITOURINARY: Without palpable bladder distension. MUSCULOSKELETAL: Extremities without clubbing, cyanosis, or edema. No joint tenderness or effusion noted. No calf tenderness. No mottling or clubbing. LINE: No evidence of infection NEUROLOGICAL: lAwake, but very confused and encephalopathic. Moves all extremities. Not following PSYCHIATRIC: agitated Assessment & Plan Remarks IMPRESSION Fever, low grade - ? source UTI? - funguria Admitted with ileus, now having diarrhea aftr with laxative treatment - c.diff negative Probably ischemic colitis GIB Encephalopathy Prominent bandemia - PLAN Follow new C/S On Diflucan Follow temps Monitor progress D/W RN Spoke with at bedside Dee Mcmullen MD Nov 30, 2017 10:15
[2017-11-30] MEDS ORDERED: SODIUM CHLOR 0.9% 250 ML INJ 250 ML IV ONE (12:00)
--- NOTE | 2017-11-30 12:39 | RADRPT ---
EXAM DATE/TIME: 11/30/2017 12:15 [facility] COMPARISON: CT BRAIN W/O CONTRAST, November 20, 2017, 11:29. INDICATIONS : Altered mental status. RADIATION DOSE: 64.63 CTDIvol (mGy) MEDICAL HISTORY : Hypertension. SURGICAL HISTORY : Tonsillectomy. ENCOUNTER: Initial ACUITY: 1 day PAIN SCALE: Non-responsive LOCATION: Bilateral head TECHNIQUE: Multiple contiguous axial images were obtained of the head. Using automated exposure control and adj ustment of the mA and/or kV according to patient size, radiation dose was kept as low as reasonably a chievable to obtain optimal diagnostic quality images. DICOM format image data is available electro nically for review and comparison. FINDINGS: CEREBRUM: The ventricles are normal for age. No evidence of midline shift, mass lesion, hemorrhage or acute in farction. No extra-axial fluid collections are seen. POSTERIOR FOSSA: The cerebellum and brainstem are intact. The 4th ventricle is midline. The cerebellopontine angle i s unremarkable. EXTRACRANIAL: The visualized portion of the orbits is intact. SKULL: The calvaria is intact. No evidence of skull fracture. CONCLUSION: Negative noncontrast head CT. Ousmane Aguilar MD on November 30, 2017 at 12:36 Board Certified Radiologist. This report was verified electronically.
[2017-11-30] MEDS: ACETAMINOPHEN/HYDROcodone 325 MG/5 MG TAB PO PRN ×2 (12:47→17:28)
[2017-11-30] MEDS: SODIUM CHLOR 0.9% 1000 ML INJ 1,000 ML IV SCH (16:04)
--- NOTE | 2017-11-30 16:22 | HHI.GIFU ---
Subjective Remarks resting in bed, tachypneic, confused. Per she is having back pain. No report of bleeding. (Karime Montano) Objective Vitals I&O Vital Signs Date Time Temp Pulse Resp B/P (MAP) Pulse Ox O2 Delivery O2 Flow Rate FiO2 11/30/17 14:00 91 11/30/17 13:26 99.4 95 26 140/89 91 11/30/17 13:06 99.4 94 30 134/79 93 11/30/17 13:00 93 48 140/89 (106) 94 11/30/17 12:00 99.4 97 32 138/96 (110) 91 11/30/17 12:00 95 11/30/17 11:00 89 24 174/81 (112) 99 11/30/17 10:00 82 11/30/17 10:00 82 29 152/80 (104) 96 11/30/17 09:00 79 27 158/78 (104) 95 11/30/17 09:00 96 Nasal Cannula 2.00 11/30/17 08:00 91 11/30/17 08:00 98.3 91 30 155/76 (102) 97 11/30/17 07:00 96 27 178/82 (114) 99 11/30/17 06:00 96 Nasal Cannula 3.00 11/30/17 06:00 92 11/30/17 04:00 92 11/30/17 04:00 97.8 92 25 150/96 (114) 100 11/30/17 03:59 99 40 11/30/17 02:00 87 11/30/17 01:40 98 40 11/30/17 00:00 80 11/30/17 00:00 98.1 76 20 126/59 (81) 98 11/29/17 22:00 80 11/29/17 20:15 94 Nasal Cannula 3.00 11/29/17 20:00 97 11/29/17 20:00 97.8 97 28 145/76 (99) 97 11/29/17 18:00 96 47 151/80 (103) 95 11/29/17 18:00 96 11/29/17 17:00 96 35 162/74 (103) 93 I/O 11/29/17 11/29/17 11/29/17 11/30/17 11/30/171/18 07:00 15:00 23:00 07:00 15:00 23:00 Intake Total 744 ml 100 ml 1087.3 ml 845 ml 250 ml 820 ml Output Total 500 ml 600 ml 250 ml Balance 244 ml 100 ml 487.3 ml 595 ml 250 ml 820 ml Intake Oral 360 ml 236 ml 240 ml IV Total 384 ml 100 ml 851.3 ml 605 ml 820 ml Platelets 250 ml Output Urine Total 500 ml 600 ml 250 ml # Bowel Movements 2 0 Laboratory Laboratory Tests Test 11/29/17 16:20 11/30/17 01:04 11/30/17 05:41 11/30/17 12:50 Blood Gas Puncture Site RT RADIAL RT RADIAL RT RADIAL Blood Gas Patient Temperature 98.6 98.6 98.6 Blood Gas HCO3 23 24 24 Blood Gas Base Excess -1.4 -2.4 -1.2 Blood Gas Oxygen Saturation 95 97 92 Arterial Blood pH 7.35 7.24 7.33 Arterial Blood Partial Pressure CO2 44 58 47 Arterial Blood Partial Pressure O2 99 170 74 Arterial Blood Oxygen Content 14.2 14.3 13.2 Arterial Blood Carboxyhemoglobin 1.3 1.0 1.3 Arterial Blood Methemoglobin 1.2 1.4 1.3 Blood Gas Hemoglobin 10.5 10.3 10.1 Oxygen Delivery Device NASAL CANNULA NASAL CANNULA NASAL CANNULA Blood Gas Liter Flow 3 4 3 White Blood Count 5.3 Red Blood Count 3.09 Hemoglobin 10.2 Hematocrit 30.8 Mean Corpuscular Volume 99.7 Mean Corpuscular Hemoglobin 33.0 Mean Corpuscular Hemoglobin Concent 33.1 Red Cell Distribution Width 24.8 Platelet Count 26 Mean Platelet Volume 9.2 Blood Urea Nitrogen 44 Creatinine 2.01 Random Glucose 109 Total Protein 6.2 Calcium Level 7.4 Sodium Level 144 Potassium Level 3.8 Chloride Level 112 Carbon Dioxide Level 23.6 Anion Gap 8 Estimat Glomerular Filtration Rate 25 Protein Corrected Calcium 7.9 Date/Time Source Procedure Growth Status 11/23/17 12:22 Blood Peripheral Aerobic Blood Culture - Final NO GROWTH IN 5 DAYS Complete 11/23/17 12:22 Blood Peripheral Anaerobic Blood Culture - Final NO GROWTH IN 5 DAYS Complete 11/18/17 14:25 Stool Stool Stool Occult Blood (KIM) - Final HEMOCCULT POSITIVE Complete 11/25/17 17:45 Sputum Endotracheal Gram Stain - Final Complete 11/25/17 17:45 Sputum Endotracheal Sputum Culture - Final HEAVY GROWTH NORMAL RESPIRATORY [place] Complete 11/23/17 13:45 Urine Clean Catch Urine Culture - Final Swati Glabrata Complete Imaging Last Impressions Head CT 11/30/17 0000 Signed Impressions: Service Date/Time: Thursday, November 30, 2017 12:15 - CONCLUSION: Negative noncontrast head CT. Ousmane Aguilar MD Chest X-Ray 11/26/17 0000 Signed Impressions: Service Date/Time: Sunday, November 26, 2017 04:09 - CONCLUSION: 1. Hyperinflation and bilateral hazy opacities, unchanged. Carlos Wang MD Abdomen X-Ray 11/23/17 0000 Signed Impressions: Service Date/Time: Thursday, November 23, 2017 06:14 - CONCLUSION: Nonobstructive bowel gas pattern without significant change. Ousmane Aguilar MD Brain MRI 11/20/17 1409 Signed Impressions: Service Date/Time: October 20:54 - CONCLUSION: 1. No acute intracranial abnormality. Right-sided mastoid air cell disease. No recent infarct, mass effect or shift. Roby Brito MD Lower Extremity Ultrasound 11/20/17 0000 Signed Impressions: Service Date/Time: October 11:48 - CONCLUSION: 1. No evidence of DVT. 2. Small right Stovall's cyst. Keven Lake MD Chest CT 11/19/17 0000 Signed Impressions: Service Date/Time: Sunday, November 19, 2017 17:10 - CONCLUSION: Minimal consolidative changes as above Small pleural effusions. Luis A Castillo MD FACR Abdomen/Pelvis CT 11/19/17 0000 Signed Impressions: Service Date/Time: Sunday, November 19, 2017 17:10 - CONCLUSION: Trace ascites or subcapsular fluid around liver Prominent gallbladder Luis A Castillo MD FACR Abdomen Ultrasound 11/17/17 0000 Signed Impressions: Service Date/Time: Friday, November 17, 2017 08:01 - CONCLUSION: Negative for occlusion or significant stenosis. Luis A Castillo MD FACR Physical Exam HEENT: Normocephalic; atraumatic CHEST: tachypneic, coarse CARDIAC: Regular rate and rhythm ABDOMEN: Soft, nondistended, bowel sounds soft more pronounced in the upper quadrants. EXTREMITIES: BUE and BLE edema SKIN: Pale; no rash; no jaundice. GUIDE WINDER: confused (Karime Montano) Assessment and Plan Assessment: (1) Chronic anemia ICD Codes: D64.9 - Anemia, unspecified Status: Acute (2) Abdominal pain ICD Codes: R10.9 - Unspecified abdominal pain Status: Resolved Plan Abdominal pain and distention- KUB (11/17) --> No signs of obstruction, ileus or perforation. US abd SMA/Celiac --> Negative for occlusion or significant stenosis. - Anemia- macrocytic- H/H dropped to 6.7/20.2 yesterday- received one unit PRBCs- currently . No signs of GIB via NGT or rectal output. 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 Going down for CT abdomen/pelvis now. (11/21) Pt increasingly confused, nonverbal during exam. MRI brain done to evaluate change in mental status which showed no acute findings. Ammonia-46 possible cause of encephalopathy. Pt now on Xifaxan and Lactulose. (11/23) Remains confused and agitated. Ammonia now WNL. Unclear cause of metabolic encephalopathy. Anemia and thrombocytopenia. Drop in H/H and platelets now 17. Not stable for endoscopic procedures. SBFT ordered, pt to agitated for procedure. wanting to hold off on this at this time Liver DIAZ pending, serum mercury, Vit D A C, serum copper Reexamined at 11:28 Pt is now alert and oriented, complaining of pain but can not localize it. Per RN reports of dark red blood through NGT. Palliative care consult pending now that pt is alert and oriented and able to participate in health care decisions. Remains at very high risk for procedures and her wishes should be addressed, likely to require intubation for endoscopic procedures. Platelet replacement per hematology. SBFT (11/23) --> Nonobstructive bowel gas pattern without significant change. (11/27) S/P colonoscopy yesterday for reports of maroon colored stool. --> Severe colitis possibly secondary to C Diff colitis. Rectal ulcers etiology unclear. Descent colon and rectal biopsies. Pt with rectal bag with no stool at this time. RN aware to send stool for C. Diff testing. H/H 11.2/32.4 S/P 1 U PRBCs yesterday. Platelet tx per Dr. Luong. Pt now extubated on NC, awake but confused. Irregular breathing, this was noted prior to intubation. 11/28/17 c dif negative. having copious loose stools. todays labs pending. bx pending. no blood in stool today. 11/29/17, biopsies show ischemic colitis, continues with loose incontinent diarrhea stools 1-2 large today. All Lactulose DC'd for now. Patient starting to eat small amounts of food, drinking supplements Rectal ulcer acute colitis on biopsy. TPN and lipids discontinued. Hemoglobin stable at 11.3 11/30/17 confused, head ct negative, tachypneic. hh mild decrease. no obvious bleeding. now with edema Plan: - flex sig in am - obtain consent - NPO after MN - 2 enemas in am for prep - further recs to follow Pt has been seen and examined by myself and Dr. Sierra and this note is written on his behalf (Karime Montano) Physician Comments Patient seen and examined Agree with above Continue with current supportive care Monitor labs Plan for a flexible sigmoidoscopy tomorrow to follow-up on ischemic colitis (Abundio Sierra MD) Problem Qualifiers (1) Abdominal pain: Qualified Codes: R10.84 - Generalized abdominal pain Karime Montano Nov 30, 2017 16:22 Abundio Sierra MD Nov 30, 2017 17:56
--- NOTE | 2017-11-30 17:07 | MB ---
cc: Dereck Harden MD DATE: 11/30/2017 REASON FOR CONSULTATION: COPD. HISTORY OF PRESENT ILLNESS: Ms. Cruz is a 67-year-old female who has known history of COPD and chronic respiratory failure, on home oxygen therapy, admitted with abdominal pain. The patient had deteriorating mental status. Presently, does not follow commands and does not relate any history. The history is mostly obtained from her record. Neurology has seen the patient and she is felt to have a metabolic encephalopathy. She is presently without fever or chill. She is on oxygen therapy via cannula during the day and BiPAP during the night. 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 SOCIAL HISTORY: Long smoking history, stopped 2 years ago. Does not drink any alcohol, does not use drugs. , lives with . FAMILY HISTORY: Positive for malignancy, seizure disorder as well as stroke. MEDICATIONS: At present include metoprolol, hydromorphone, clonidine, hydralazine, rifaximin, diltiazem, budesonide, albuterol nebulization. ALLERGIES: NONE KNOWN TO ME AT THIS POINT. REVIEW OF SYSTEMS: A 12-point review of systems is as per HPI and history above, otherwise not obtainable. PHYSICAL EXAMINATION: GENERAL: The patient is alert. VITAL SIGNS: Temperature 99, pulse 95, respirations 24, blood pressure 140/80, oxygen saturation 91% on O2 via nasal cannula. HEENT: Unremarkable. Eyes without icterus. NECK: Without adenopathy, thyroid enlargement. CHEST: Few scattered rhonchi at the bases. HEART: PMI not appreciated. S1, S2 audible, II/ ejection systolic murmur, left sternal border. ABDOMEN: Lax, bowel sounds audible. EXTREMITIES: No clubbing, cyanosis or edema. LABORATORY DATA: White count 5.3, hemoglobin 10, hematocrit 30, platelets 26,000. Sodium 144, potassium 3.8, BUN 44, creatinine 2.0. Arterial blood gas today: pH 7.33, pCO2 of 47, pO2 of 74. IMPRESSION: 1. Respiratory failure, hypoxia and hypercapnia. 2. Chronic obstructive pulmonary disease. 3. Idiopathic thrombocytopenic purpura. 4. Metabolic encephalopathy. PLAN: The patient to continue oxygen therapy. BiPAP therapy is advisable during day and night hours until her hypercapnia improves, then she may go back on oxygen by nasal cannula or other device. During sleep, it is obviously very beneficial given the hypoventilation that is associated with sleep. Bronchodilator therapy will be maintained. Pulmonary toilet undertaken as needed. Her last chest x-ray done 11/26 is with hyperinflation and nonspecific infiltrates. We will obtain a followup chest x-ray as well. I do thank you for asking me to partake in Ms. Cruz's care. Dereck Harden MD WWW/ADOLPH , 04:46 PM , 05:06 PM
[2017-11-30] MEDS: FLUCONAZOLE 200 MG PREMIX BAG 100 ML IV SCH (17:28)
--- NOTE | 2017-11-30 17:32 | RADRPT ---
EXAM DATE/TIME: 11/30/2017 17:02 [facility] COMPARISON: CHEST SINGLE AP, November 26, 2017, 4:09. INDICATIONS : Shortness of breath. MEDICAL HISTORY : Hypertension. Chronic obstructive pulmonary disease. Arthritis. Anemia. Chronic ITP. SURGICAL HISTORY : Splenectomy. section Bone marrow bx. ENCOUNTER: Subsequent ACUITY: 1 week PAIN SCORE: 0/10 LOCATION: Bilateral chest FINDINGS: A single view of the chest demonstrates increased density in both lung bases. Lungs otherwise appear hyperinflated. Endotracheal and nasogastric tubes have been removed. Heart and mediastinal structures are stable. CONCLUSION: Bibasilar increased density characteristic of underlying air space disease and bilateral effusions. Otherwise stable chest status post extubation. COPD. Fernando Shaver MD on November 30, 2017 at 17:29 Board Certified Radiologist. This report was verified electronically.
[2017-12-01] VITALS (28 sets, daily range): BP systolic 121–187; BP diastolic 60–131; PULSE 83–131; RESP 17–50; TEMP 98.5–99.9; O2SAT 88–100
[2017-12-01] MEDS: ACETAMINOPHEN 325 MG TAB PO PRN (00:02)
[2017-12-01] MEDS: DILTIAZEM HCL 60 MG TAB PO SCH ×6 (00:02→23:04)
[2017-12-01] MEDS: CHLORHEXIDINE GLUCONATE 2 % 1 PACK (2 CLOTHS) TOP SCH (04:00)
[2017-12-01] MEDS ORDERED: SOD PHOSPHATE/SOD BIPHOSPHATE (ADULT) ENEMA 133ML PR ONE ×2 (06:00→07:00)
[2017-12-01] MEDS: INSULIN ASPART SUPPLEMENTAL SCALE SQ SCH ×4 (08:00→21:00)
[2017-12-01] MEDS: SODIUM CHLORIDE 0.9% FLUSH 10 ML FLUSH IV FLUSH SCH ×2 (08:23→20:57)
[2017-12-01] MEDS: RESP: BUDESONIDE 0.25 MG/2 ML NEB NEB SCH (08:48)
[2017-12-01] MEDS: FAMOTIDINE 20 MG TAB PO SCH ×3 (09:00→20:57)
[2017-12-01] MEDS: RIFAXIMIN 550 MG TAB PO SCH ×3 (09:00→20:57)
[2017-12-01] MEDS: TIOTROPIUM BROMIDE 18 MCG INH INH SCH (09:00)
[2017-12-01] MEDS: METOPROLOL TARTRATE 50 MG TAB PO SCH ×3 (09:00→20:57)
[2017-12-01] MEDS: hydrALAZINE HCL 20 MG/ML VIAL IV PUSH PRN (09:14)
[2017-12-01] MEDS: METOPROLOL TARTRATE 5 MG/5 ML VIAL IV PUSH PRN ×3 (10:07→19:45)
[2017-12-01] MEDS: HYDROmorphone HCL PF 2 MG/ML VIAL IV PRN ×3 (10:07→19:45)
--- NOTE | 2017-12-01 10:11 | HHI.PR ---
Subjective Remarks still lethargic- on Bipap. had a low garde fever last night. d/w the RN at the bedside. Objective Vitals Vital Signs Date Time Temp Pulse Resp B/P (MAP) Pulse Ox O2 Delivery O2 Flow Rate FiO2 12/01/17 09:10 Nasal Cannula 3.00 12/01/17 08:49 100 40 12/01/17 08:49 100 BiPAP 40 12/01/17 06:00 87 12/01/17 04:00 98.8 87 25 149/81 (103) 96 12/01/17 04:00 87 12/01/17 03:29 94 40 12/01/17 02:00 87 12/01/17 00:13 97 40 12/01/17 00:00 99.5 90 26 138/82 (100) 98 12/01/17 00:00 90 11/30/17 22:00 85 11/30/17 20:57 99 40 11/30/17 20:27 98 Nasal Cannula 4.00 11/30/17 20:00 100.0 90 115/90 (98) 98 11/30/17 20:00 90 11/30/17 18:00 90 11/30/17 16:00 89 11/30/17 16:00 99.2 89 46 146/84 (104) 97 11/30/17 15:00 91 36 147/86 (106) 97 11/30/17 14:00 92 55 122/92 (102) 92 11/30/17 14:00 91 11/30/17 13:26 99.4 95 26 140/89 91 11/30/17 13:06 99.4 94 30 134/79 93 11/30/17 13:00 93 48 140/89 (106) 94 11/30/17 12:00 99.4 97 32 138/96 (110) 91 11/30/17 12:00 95 11/30/17 11:00 89 24 174/81 (112) 99 I/O 11/30/17 11/30/17 11/30/17 12/01/17 12/01/17 12/01/17 07:00 15:00 23:00 07:00 15:00 23:00 Intake Total 845 ml 250 ml 1461 ml Output Total 250 ml 400 ml 700 ml Balance 595 ml 250 ml 1061 ml -700 ml Intake Oral 240 ml 472 ml IV Total 605 ml 989 ml Platelets 250 ml Output Urine Total 250 ml 400 ml 700 ml # Bowel Movements 0 3 1 Result Diagram: 11/30/17 0541 11/30/17 0541 Imaging Last Impressions Head CT 11/30/17 0000 Signed Impressions: Service Date/Time: Thursday, November 30, 2017 12:15 - CONCLUSION: Negative noncontrast head CT. Ousmane Aguilar MD Chest X-Ray 11/30/17 0000 Signed Impressions: Service Date/Time: Thursday, November 30, 2017 17:02 - CONCLUSION: Bibasilar increased density characteristic of underlying air space disease and bilateral effusions. Otherwise stable chest status post extubation. COPD. Fernando Shaver MD Abdomen X-Ray 11/23/17 0000 Signed Impressions: Service Date/Time: Thursday, November 23, 2017 06:14 - CONCLUSION: Nonobstructive bowel gas pattern without significant change. Ousmane Aguilar MD Brain MRI 11/20/17 1409 Signed Impressions: Service Date/Time: October 20:54 - CONCLUSION: 1. No acute intracranial abnormality. Right-sided mastoid air cell disease. No recent infarct, mass effect or shift. Roby Brito MD Lower Extremity Ultrasound 11/20/17 0000 Signed Impressions: Service Date/Time: October 11:48 - CONCLUSION: 1. No evidence of DVT. 2. Small right Stovall's cyst. Keven Lake MD Chest CT 11/19/17 0000 Signed Impressions: Service Date/Time: Sunday, November 19, 2017 17:10 - CONCLUSION: Minimal consolidative changes as above Small pleural effusions. Luis A Castillo MD FACR Abdomen/Pelvis CT 11/19/17 0000 Signed Impressions: Service Date/Time: Sunday, November 19, 2017 17:10 - CONCLUSION: Trace ascites or subcapsular fluid around liver Prominent gallbladder Luis A Castillo MD FACR Abdomen Ultrasound 11/17/17 0000 Signed Impressions: Service Date/Time: Friday, November 17, 2017 08:01 - CONCLUSION: Negative for occlusion or significant stenosis. Luis A Castillo MD FACR Objective Remarks GENERAL: This is a well-nourished, well-developed patient, in no apparent distress. CARDIOVASCULAR: Regular rate and regular rhythm without murmurs, gallops, or rubs. RESPIRATORY: Clear to auscultation. Breath sounds equal bilaterally. No wheezes , rales, or rhonchi. GASTROINTESTINAL: Abdomen soft, non-tender, nondistended. Normal, active bowel sounds MUSCULOSKELETAL: Extremities without clubbing, cyanosis, or edema. NEURO: Awake but confused. Procedures EGD/ colonoscopy. Medications and IVs Inpatient Medications Acetaminophen (Tylenol) 650 mg Q4H PRN PO SEE LABEL COMMENTS; Start 11/23/17 at 11:30; Stop 11/23/17 at 23:59; Status DC Acetaminophen/ Hydrocodone Bitart (Avery 5-325 Mg) 1 tab Q4H PRN PO PAIN 1-4 Last administered on 11/30/17at 17:28; Start 11/27/17 at 10:45 Albumin Human 100 ml @ 100 mls/hr Q1H IV Last administered on 11/18/17at 05:28 ; Start 11/18/17 at 03:15; Stop 11/18/17 at 08:14; Status DC Albuterol Sulfate (Albuterol Neb) 2.5 mg Q4HR NEB INH Last administered on at 03:13; Start 11/21/17 at 04:00; Stop 11/25/17 at 03:59; Status DC Albuterol/ Ipratropium (Duoneb Neb) 1 ampule Q4HR NEB PRN INH WHEEZING Last administered on 11/30/17at 08:58; Start 11/17/17 at 06:45 Argatroban 250 mg/ Dextrose 250 ml @ 1.9 mls/hr TITRATE PRN IV aPTT < 50; Start 11/18/17 at 13:30; Stop 11/18/17 at 13:30; Status DC Argatroban 250 mg/ Sodium Chloride 252.5 ml @ 1.92 mls/hr TITRATE PRN IV aPTT < 50 Last administered on 11/22/17at 15:20; Start 11/18/17 at 12:45; Stop at 12:36; Status DC Bisacodyl (Dulcolax Supp) 10 mg DAILY PRN RECTAL SEVERE CONSITIPATION; Start at 06:45 Budesonide (Pulmicort Respule Neb) 0.25 mg DAILY NEB NEB Last administered on 12/01/17at 08:48; Start 11/17/17 at 08:00 Calcium Chloride 1 gm/Sodium Chloride 110 ml @ 110 mls/hr ONCE ONCE IV ; Start 11/29/17 at 12:00; Stop 11/29/17 at 12:00; Status DC Calcium Gluconate 1 gm/Sodium Chloride 110 ml @ 110 mls/hr NOW ONCE IV Last administered on 11/28/17at 15:22; Start 11/28/17 at 15:00; Stop 11/28/17 at 15:59 ; Status DC Calcium Gluconate 2 gm/Dextrose 120 ml @ 120 mls/hr ONCE ONCE IV Last administered on 11/18/17at 17:07; Start 11/18/17 at 16:00; Stop 11/18/17 at 16:59 ; Status DC Calcium Gluconate 2 gm/Sodium Chloride 120 ml @ 120 mls/hr NOW ONCE IV Last administered on 11/29/17at 12:06; Start 11/29/17 at 12:00; Stop 11/29/17 at 12:59 ; Status DC Cefepime HCl 2000 mg/Sodium Chloride 100 ml @ 200 mls/hr Q12H IV Last administered on 11/29/17at 20:07; Start 11/24/17 at 20:00; Stop 11/29/17 at 23:33 ; Status DC Chlorhexidine Gluconate (Chlorhexidine 2% Cloth) 3 pack UNSCH PRN TOP HYGIENIC CARE; Start 11/17/17 at 06:45 Clonidine (Catapres) 0.1 mg Q6H PRN PO SYS BP GREATER THAN 160 MMHG; Start at 16:45 Dextrose (D50w (Vial) Inj) 50 ml UNSCH PRN IV PUSH HYPOGLYCEMIA-SEE COMMENTS; Start 11/29/17 at 15:45 Dextrose/Sodium Chloride 1,000 ml @ 125 mls/hr Q8H IV Last administered on at 11:44; Start 11/18/17 at 11:00; Stop 11/19/17 at 06:53; Status DC Diatrizoate Meglum/ Diatrizoate Sod ( Gastroview Liq) 18 ml ONCE ONCE PO Last administered on 11/17/17at 14:01; Start 11/17/17 at 13:30; Stop 11/17/17 at 13:31; Status DC Diltiazem HCl (Cardizem Inj) 10 mg ONCE ONCE IV Last administered on at 17:30; Start 11/20/17 at 17:30; Stop 11/20/17 at 17:31; Status DC Diltiazem HCl (Cardizem) 60 mg Q6HR PO Last administered on 11/30/17at 17:28; Start 11/20/17 at 12:00 Diphenhydramine HCl (Benadryl) 25 mg Q4H PRN PO SEE LABEL COMMENTS; Start 11/23 at 11:30; Stop 11/23/17 at 23:59; Status DC Famotidine (Pepcid Inj) 10 mg Q12HR IV PUSH Last administered on 11/24/17at 08: 24; Start 11/18/17 at 21:00; Stop 11/24/17 at 13:10; Status DC Famotidine (Pepcid) 10 mg BID PO Last administered on 11/30/17at 07:51; Start at 21:00 Fat Emulsion Intravenous 250 ml @ 10 mls/hr Q24H IV Last administered on at 21:24; Start 11/28/17 at 20:00; Stop 11/29/17 at 15:36; Status DC Fentanyl Citrate 250 ml @ 5 mls/hr TITRATE PRN IV SEDATION Last administered on 11/26/17at 14:57; Start 11/25/17 at 14:30; Stop 11/29/17 at 15:36; Status DC Fluconazole/ Sodium Chloride 100 ml @ 100 mls/hr Q24H IV Last administered on 11/30/17 17:28; Start 11/25/17 at 18:00 Furosemide (Lasix Liq) 40 mg ONCE ONCE NG Last administered on 11/20/17at 12: 56; Start 11/20/17 at 10:00; Stop 11/20/17 at 10:46; Status DC Glucagon (Glucagon Inj) 1 mg UNSCH PRN OTHER HYPOGLYCEMIA-SEE COMMENTS; Start 11/29/17 at 15:45 Heparin Sodium (Porcine) (Heparin Inj) 5,000 units Q12HR SQ Last administered on 11/29/17at 20:08; Start 11/29/17 at 21:00; Stop 11/30/17 at 11:53; Status DC Heparin Sodium/ Dextrose 250 ml @ 0 mls/hr TITRATE PRN IV Coagulation Management; Start 11/18/17 at 12:45; Stop 11/18/17 at 12:57; Status DC Hydralazine HCl (Apresoline Inj) 10 mg Q4H PRN IV PUSH SYS BP GREATER THAN 160 MMHG Last administered on 12/01/17at 09:14; Start 11/21/17 at 16:45 Hydromorphone HCl (Dilaudid Pf Inj) 0.5 mg Q4H PRN IV pain >5/10 Last administered on 11/27/17at 12:08; Start 11/22/17 at 02:45 Insulin Aspart (NovoLOG SUPPLEMENTAL SCALE) 1 ACHS SLIDING SCALE SQ Last administered on 11/29/17at 21:18; Start 11/29/17 at 17:00 Lactulose (Lactulose Liq) 15 ml BID PO ; Start 11/28/17 at 21:00; Stop 11/28/17 at 22:58; Status DC Lorazepam (Ativan Inj) 0.125 mg NOW ONCE IV Last administered on 11/20/17at 20: 04; Start 11/20/17 at 16:30; Stop 11/20/17 at 16:31; Status DC Magnesium Hydroxide (Milk Of Magnesia Liq) 30 ml Q12H PRN PO Mild constipation ; Start 11/17/17 at 06:45 Magnesium Oxide (Mag-Ox) 800 mg UNSCH PRN PO For Magnesium 1.2 - 1.6 mg/dL; Start 11/21/17 at 13:30; Stop 11/30/17 at 08:10; Status DC Magnesium Sulfate 2 gm/Sodium Chloride 100 ml @ 50 mls/hr UNSCH PRN IV For Magnesium 1.2 - 1.6 mg/dL Last administered on 11/26/17at 07:43; Start 11/21/17 at 13:30; Stop 11/30/17 at 08:10; Status DC Magnesium Sulfate 4 gm/Sodium Chloride 100 ml @ 50 mls/hr UNSCH PRN IV For Magnesium 0.9 - 1.1 mg/dL; Start 11/21/17 at 13:30; Stop 11/30/17 at 08:10; Status DC Metoprolol Tartrate (Lopressor Inj) 5 mg Q5M PRN IV PUSH HR>100 Last administered on 11/27/17at 15:41; Start 11/22/17 at 00:00 Metoprolol Tartrate (Lopressor) 50 mg Q12HR PO Last administered on 11/30/17at 07 :51; Start 11/22/17 at 09:00 Metronidazole 100 ml @ 100 mls/hr Q8H IV Last administered on 11/25/17at 12:28 ; Start 11/17/17 at 20:00; Stop 11/25/17 at 17:07; Status DC Miscellaneous Information ALL NURSING DEPARTME... UNSCH PRN .XX SEE LABEL COMMENTS; Start 11/26/17 at 17:20; Stop 11/27/17 at 17:19; Status DC Miscellaneous Medication ([facility] Pharmacy Information) Discontinue all forms of heparin... ONCE ONCE OTHER ; Start 11/18/17 at 12:45; Stop 11/18/17 at 13:00; Status DC Morphine Sulfate (Morphine Inj) 1 mg ONCE ONCE IV PUSH Last administered on at 15:26; Start 11/21/17 at 15:15; Stop 11/21/17 at 15:16; Status DC Non-Formulary Medication 1 nebule BID INH ; Start 11/17/17 at 09:00; Status Future Hold Ondansetron HCl (Zofran Inj) 4 mg Q6H PRN IV PUSH NAUSEA OR VOMITING; Start at 06:45 Pantoprazole Sodium (Protonix Inj) 40 mg ONCE ONCE IVP Last administered on at 00:00; Start 11/16/17 at 23:30; Stop 11/16/17 at 23:33; Status DC Pharmacy Profile Note 0 ml @ 0 mls/hr UNSCH OTHER ; Start 11/17/17 at 07:45; Stop 11/25/17 at 17:07; Status DC Piperacillin Sod/ Tazobactam Sod 100 ml @ 200 mls/hr ONCE ONCE IV Last administered on 11/17/17at 00:01; Start 11/16/17 at 23:30; Stop 11/16/17 at 23:59 ; Status DC Polyethylene Glycol/ Electrolytes (Colyte Liq) 4,000 ml ONCE ONCE OG-TUBE Last administered on 11/25/17at 21:09; Start 11/25/17 at 19:00; Stop 11/25/17 at 19:01; Status DC Potassium Phosphate (K-Phos) 2,000 mg UNSCH PRN PO/TUBE SEE LABEL COMMENTS; Start 11/21/17 at 13:30; Stop 11/30/17 at 08:10; Status DC Potassium Phosphate 30 mmol/ Sodium Chloride 260 ml @ 42 mls/hr UNSCH PRN IV SEE LABEL COMMENTS Last administered on 11/25/17at 11:55; Start 11/21/17 at 13:30 ; Stop 11/30/17 at 08:10; Status DC Potassium Bicarb/ Potassium Chloride (K-Lyte Cl Eff) 50 meq UNSCH PRN PO For Potassium 3.3 - 3.5 mEq/L Last administered on 11/28/17at 19:05; Start 11/21/17 at 13:30; Stop 11/30/17 at 08:10; Status DC Potassium Chloride 100 ml @ 50 mls/hr Q2H PRN IV For Potassium 3.3 - 3.5 mEq/ L Last administered on 11/22/17at 10:08; Start 11/21/17 at 13:30; Stop 11/30/17 at 08:10; Status DC Potassium Chloride (KCl) 20 meq ONCE ONCE PO Last administered on 11/17/17at 00 :57; Start 11/17/17 at 00:45; Stop 11/17/17 at 00:46; Status DC Propofol 100 ml @ 2.04 mls/hr TITRATE PRN IV Sedation Last administered on at 06:11; Start 11/25/17 at 12:15 Rifaximin (Xifaxan) 550 mg BID PO Last administered on 11/30/17at 07:51; Start at 21:00 Senna/Docusate Sodium (Rita-Colace) 1 tab BID PO Last administered on at 08:21; Start 11/17/17 at 09:00; Stop 11/29/17 at 15:36; Status DC Sennosides (Senokot) 17.2 mg Q12H PRN PO Moderate constipation Last administered on 11/17/17at 09:11; Start 11/17/17 at 06:45 Sodium Bicarbonate 150 meq/Dextrose 1,000 ml @ 100 mls/hr Q10H IV Last administered on 11/18/17at 23:31; Start 11/18/17 at 13:30; Stop 11/19/17 at 06:53 ; Status DC Sodium Bicarbonate 150 meq/Sterile Water 1,000 ml @ 100 mls/hr Q10H IV ; Start 11/18/17 at 13:00; Stop 11/18/17 at 13:20; Status DC Sodium Biphosphate/ Sodium Phosphate (Fleets Enema (Adult)) 133 ml ONCE ONCE SD Last administered on 12/01/17at 06:21; Start 12/01/17 at 07:00; Stop 12/01/17 at 07:01; Status DC Sodium Bicarbonate (Sodium Bicarbonate 8.4% Inj) 50 meq ONCE ONCE IV PUSH Last administered on 11/18/17at 13:00; Start 11/18/17 at 13:00; Stop 11/18/17 at 13:01; Status DC Sodium Chloride 250 ml @ 15 mls/hr ONCE ONCE IV Last administered on at 12:00; Start 11/30/17 at 12:00; Stop 12/01/17 at 04:39; Status DC Sodium Chloride (NS Flush) 2 ml BID IV FLUSH Last administered on 11/30/17at 22: 03; Start 11/17/17 at 09:00 Sodium Chloride 5.5 meq/Sodium Acetate 29.5 meq/ Potassium Chloride 20 meq/ Magnesium Chloride 5 meq/ Calcium Chloride 4.5 meq/ Multivitamins 10 ml/Folic Acid 1 mg/Amino Acids/ Dextrose 1,042.1719 ml @ 42 mls/hr Q24H IV Last administered on 11/26/17at 21:11; Start 11/19/17 at 20:00; Stop 11/27/17 at 19:59 ; Status DC Sodium Chloride 11 meq/Sodium Acetate 59 meq/ Potassium Chloride 40 meq/ Magnesium Chloride 10 meq/ Calcium Chloride 9 meq/ Multivitamins 10 ml/Folic Acid 1 mg/Amino Acids/ Dextrose 2,074.1437 ml @ 42 mls/hr Q24H IV Last administered on 11/28/17at 21:25; Start 11/27/17 at 20:00; Stop 11/29/17 at 15:36 ; Status DC Sodium Phosphate 30 mmol/Sodium Chloride 250 ml @ 42 mls/hr UNSCH PRN IV For Phosphorus < 2.5 mg/dL Last administered on 11/26/17at 15:07; Start 11/21/17 at 13:30 Tiotropium Yantis (Spiriva Inh) 18 mcg DAILY INH Last administered on at 07:50; Start 11/17/17 at 09:00 Vancomycin HCl (VANCOMYCIN for oral use only) 125 mg Q6HR PO Last administered on 11/29/17at 17:48; Start 11/28/17 at 19:30; Stop 11/29/17 at 23:33; Status DC Vancomycin HCl 500 mg/Sodium Chloride 100 ml @ 200 mls/hr ONCE ONCE IV Last administered on 11/17/17at 12:35; Start 11/17/17 at 12:00; Stop 11/17/17 at 12:29 ; Status DC Vancomycin HCl 1000 mg/Sodium Chloride 250 ml @ 250 mls/hr Q24H IV Last administered on 11/25/17at 14:56; Start 11/23/17 at 15:00; Stop 11/25/17 at 17:07 ; Status DC Vancomycin HCl 1250 mg/Sodium Chloride 262.5 ml @ 250 mls/hr ONCE ONCE IV Last administered on 11/22/17at 15:00; Start 11/22/17 at 15:00; Stop 11/22/17 at 16:02; Status DC Water (Free Water) 250 ml Q6H G-TUBE Last administered on 11/24/17at 02:29; Start 11/22/17 at 09:00; Stop 11/24/17 at 13:29; Status DC A/P Assessment and Plan A/P ischemic colitis- gastroenterology and GI consulted. EGD showed erosive gastritis, colonoscopy showed pseudomembranes, biopsy showed ischemic colitis, possible CTA per GI. Still with diarrhea. C. difficile negative. On PPI, patient tolerating diet. KUB unremarkable, CT of the abdomen showed trace ascites and subcapsular fluid around the prominent gallbladder. Patient still on rifaximin per GI. plan for sigmoidoscopy today. evaluated by general surgery. acute encephalopathy; likely metabolic CT head ( on 11/30) negative-EEG with no obvious seizure activity- evaluated by Neurology. acute renal failure-start IVF, likely secondary to poor oral intake. Hypocalcemia-improved. Chronic back pain 2/ impression fractures, altered mental status, likely toxic metabolic encephalopathy versus delirium-MRI 11/21 unremarkable. Neurology was consulted. EEG done showed bihemispheric slowing, no paroxysmal discharges. Stop lactulose. Acute respiratory failure-status post extubation, oxygen dependent for COPD and asthma. Extubated 11/27, tolerating nasal cannula, continue duo nebs, Spiriva, budesonide, aspiration precautions. BiPaP as needed- pulmonary following. Hypertension, sinus tachycardia-continue Cardizem, Lopressor. History of left popliteal arterial occlusion-hematology following, heparin subcutaneous started. Funguria-urine culture growing Swati glabrata, continue fluconazole, ID following. repeated blood cultures pending. Chronic ITP-hematology following, status post transfusion of platelets and packed red blood cells, platelet count baseline around 40-70,000. Previously on anticoagulation with Pradaxa switch to Xarelto. Doppler ultrasound lower extremity negative for DVT. Follow-up hematology recommendations, heparin for now. Hyperglycemia of critical illness-continue sliding-scale GI Prophylaxis Famotidine BID DVT Prophylaxis: Heparin patient is ill-looking. will monitor in ICU for now. low threshold for machine ii coremaker reconsult. d/w . Brian Cee MD Dec 01, 2017 10:11
[2017-12-01 10:35] LABS: AUTOMATED NEUTROPHIL # 4.5 TH/MM3 (1.8-7.7); BASOPHIL % 0.2 % (0.0-2.0); EOSINOPHIL % 0.4 % (0.0-4.0); HEMATOCRIT 30.2 % (35.0-46.0); MEAN CELL VOLUME 99.3 FL (80.0-100.0); MEAN CORPUSCULAR HGB CONC 33.3 % (32.0-36.0); MONO % 10.3 % (0.0-8.0); MONOCYTE # 0.6 TH/MM3 (0-0.9); NEUT % 73.1 % (16.0-70.0); PLATELET COUNT 22 TH/MM3 (150-450); RED BLOOD COUNT 3.04 MIL/MM3 (4.00-5.30); WHITE BLOOD COUNT 6.1 TH/MM3 (4.0-11.0)
[2017-12-01 11:09] LABS: BICARBONATE 23.2 MEQ/L (21.0-32.0); CALCIUM 7.1 MG/DL (8.5-10.1); CREATININE 2.33 MG/DL (0.50-1.00)
[2017-12-01 11:25] LABS: CALCIUM-PROTEIN CORRECTED 7.5 MG/DL (8.5-10.1); TOTAL PROTEIN 6.4 GM/DL (6.4-8.2)
--- NOTE | 2017-12-01 12:00 | GIPROC ---
[facility] [address] [facility]. [facility], [id number] FLEXIBLE SIGMOIDOSCOPY PROCEDURE REPORT EXAM DATE: 12/01/2017 PATIENT NAME: Pilar Cruz MR #: [id number] BIRTHDATE: 1950 ORDER #: [id number] ATTENDING: Stefan Olivares MD SIZER MACHINE: Anthony Morataya and Luz Maria Thompson STATUS: inpatient INDICATIONS: The patient is a 67 yr old female here for a flexible sigmoidoscopy due to abdominal pain, generalized , change in bowel habits, and chronic diarrhea PROCEDURE PERFORMED: Flexible Sigmoidoscopy, diagnostic MEDICATIONS: None and Per Anesthesia. ESTIMATED BLOOD LOSS: None CONSENT: The patient understands the risks and benefits of the procedure and understands that these risks include, but are not limited to: sedation, allergic reaction, infection, perforation and/or bleeding. Alternative means of evaluation and treatment include, among others: physical exam, x-rays, and/or surgical intervention. The patient elects to proceed with this endoscopic procedure. medical equipment was checked for proper function. Hand hygiene and appropriate measures for infection prevention was taken. After the risks, benefits and alternatives of the procedure were thoroughly explained, Informed consent was verified, confirmed and timeout was successfully executed by the treatment team. A digital rectal exam revealed external hemorrhoids The Pentax [id number] endoscope was introduced through the anus and advanced to the sigmoid colon. The prep was inadequate. The instrument was then slowly withdrawn as the colon was fully examined. COLON FINDINGS: Multiple non-bleeding, shallow and clean-based ulcers ranging between 3-5 mm in size were found in the rectum. A diffuse patch of abnormal mucosa was found in the sigmoid colon. The mucosa was congested and erythematous. Retroflexed views revealed internal hemorrhoid The scope was then completely withdrawn from the patient and the procedure terminated. ADVERSE EVENTS: There were no complications. IMPRESSIONS: 1. Multiple ulcers ranging between 3-5 mm in size were found in the rectum 2. Diffuse abnormal mucosa was found in the sigmoid colon; The mucosa was congested and erythematous 3. Retroflexed views revealed internal hemorrhoid 4. Revealed external hemorrhoids RECOMMENDATIONS: 1. Yearly hemoccult 2. MRA RECALL: Return As need for Colonoscopy Stefan Olivares MD eSigned: Stefan Olivares MD 12/01/2017 12:00 PM cc:
[2017-12-01] MEDS ORDERED: DO NOT ADM ANY ANTICOAGULANT DRUGS PRN (12:02)
[2017-12-01] MEDS ORDERED: SODIUM CHLOR 0.9% 250 ML INJ 250 ML IV ONE (12:45)
[2017-12-01 12:48] LABS: BANDS 26 % (0-6); LYMPHOCYTES 13 % (9-44); MONOCYTES 7 % (0-8); MYELOCYTES 2 % (0-0); NEUTROPHIL # MANUAL DIFF 4.9 TH/MM3 (1.8-7.7); POLYS (SEG NEUTROPHILS) 52 % (16-70); TOXIC GRANULATION 1+ (NORMAL)
[2017-12-01 12:49] LABS: OVALOCYTES 1+ (NORMAL)
--- NOTE | 2017-12-01 14:51 | PD.ONC.PN ---
Subjective Subjective Remarks Low-grade fever 100.0 last night Patient on BiPAP Per covering RN, there were no acute events She has just returned from sigmoidoscopy Objective Data Date Time Temp Pulse Resp B/P (MAP) Pulse Ox O2 Delivery O2 Flow Rate FiO2 12/01/17 13:00 118 12/01/17 12:00 99 12/01/17 11:00 93 12/01/17 10:00 96 12/01/17 09:10 Nasal Cannula 3.00 12/01/17 09:00 92 12/01/17 08:49 100 40 12/01/17 08:49 100 BiPAP 40 12/01/17 08:00 92 12/01/17 07:00 92 12/01/17 06:00 87 12/01/17 04:00 98.8 87 25 149/81 (103) 96 12/01/17 04:00 87 12/01/17 03:29 94 40 12/01/17 02:00 87 12/01/17 00:13 97 40 12/01/17 00:00 99.5 90 26 138/82 (100) 98 12/01/17 00:00 90 11/30/17 22:00 85 11/30/17 20:57 99 40 11/30/17 20:27 98 Nasal Cannula 4.00 11/30/17 20:00 100.0 90 115/90 (98) 98 11/30/17 20:00 90 11/30/17 18:00 90 11/30/17 16:00 89 11/30/17 16:00 99.2 89 46 146/84 (104) 97 11/30/17 15:00 91 36 147/86 (106) 97 12/01/17 12/01/17 12/01/17 07:00 15:00 23:00 Output Total 700 ml Balance -700 ml Result Diagram: 12/01/1795112/01/17951 Laboratory Results Laboratory Tests Test 12/01/17 09:52 12/01/17 13:31 White Blood Count 6.1 TH/MM3 Red Blood Count 3.04 MIL/MM3 Hemoglobin 10.0 GM/DL Hematocrit 30.2 % Mean Corpuscular Volume 99.3 FL Mean Corpuscular Hemoglobin 33.0 PG Mean Corpuscular Hemoglobin Concent 33.3 % Red Cell Distribution Width 25.0 % Platelet Count 22 TH/MM3 Mean Platelet Volume 10.0 FL Neutrophils (%) (Auto) 73.1 % Lymphocytes (%) (Auto) 16.0 % Monocytes (%) (Auto) 10.3 % Eosinophils (%) (Auto) 0.4 % Basophils (%) (Auto) 0.2 % Neutrophils # (Auto) 4.5 TH/MM3 Lymphocytes # (Auto) 1.0 TH/MM3 Monocytes # (Auto) 0.6 TH/MM3 Eosinophils # (Auto) 0.0 TH/MM3 Basophils # (Auto) 0.0 TH/MM3 CBC Comment AUTO DIFF Differential Total Cells Counted 100 Neutrophils % (Manual) 52 % Band Neutrophils % 26 % Lymphocytes % 13 % Monocytes % 7 % Neutrophils # (Manual) 4.9 TH/MM3 Myelocytes 2 % Toxic Granulation 1+ Platelet Estimate LOW Platelet Morphology Comment NORMAL Ovalocytes 1+ Blood Urea Nitrogen 51 MG/DL Creatinine 2.33 MG/DL Random Glucose 98 MG/DL Total Protein 6.4 GM/DL Calcium Level 7.1 MG/DL Sodium Level 147 MEQ/L Potassium Level 4.0 MEQ/L Chloride Level 115 MEQ/L Carbon Dioxide Level 23.2 MEQ/L Anion Gap 9 MEQ/L Estimat Glomerular Filtration Rate 21 ML/MIN Protein Corrected Calcium 7.5 MG/DL Lactic Acid Level 0.7 mmol/L Culture Results Microbiology Date/Time Source Procedure Growth Status 11/30/17 16:45 Blood Peripheral Aerobic Blood Culture - Preliminary NO GROWTH IN 1 DAY Resulted 11/30/17 16:45 Blood Peripheral Anaerobic Blood Culture - Preliminary NO GROWTH IN 1 DAY Resulted 11/30/17 16:40 Blood Peripheral Aerobic Blood Culture - Preliminary NO GROWTH IN 1 DAY Resulted 11/30/17 16:40 Blood Peripheral Anaerobic Blood Culture - Preliminary NO GROWTH IN 1 DAY Resulted Administered Medications Medications (Trade) Dose Ordered Sig/Colton Route PRN Reason Start Time Stop Time Status Last Admin Dose Admin Sodium Chloride (NS Flush) 2 ml UNSCH PRN IV FLUSH FLUSH AFTER USING IV ACCESS 11/17/17 06:45 11/30/17 07:51 Sodium Chloride (NS Flush) 2 ml BID IV FLUSH 11/17/17 09:00 11/30/17 22:03 Acetaminophen (Tylenol) 650 mg Q6H PRN PO FEVER >101F 11/17/17 06:45 11/24/17 08:24 Albuterol/ Ipratropium (Duoneb Neb) 1 ampule Q4HR NEB PRN INH WHEEZING 11/17/17 06:45 11/30/17 08:58 Miscellaneous Information 1 Q361D XX 11/17/17 06:45 11/17/17 06:45 Chlorhexidine Gluconate (Chlorhexidine 2% Cloth) Taper DAILY@04 TOP 11/18/17 04:00 11/14/18 03:59 11/24/17 04:00 Sennosides (Senokot) 17.2 mg Q12H PRN PO Moderate constipation 11/17/17 06:45 11/17/17 09:11 Albuterol Sulfate (Albuterol Neb) 2.5 mg Q4HR NEB PRN NEB SHORTNESS OF BREATH 11/17/17 07:45 11/25/17 20:45 Budesonide (Pulmicort Respule Neb) 0.25 mg DAILY NEB NEB 11/17/17 08:00 12/01/17 08:48 Tiotropium Stanley (Spiriva Inh) 18 mcg DAILY INH 11/17/17 09:00 11/30/17 07:50 Diltiazem HCl (Cardizem) 60 mg Q6HR PO 11/20/17 12:00 11/30/17 17:28 Rifaximin (Xifaxan) 550 mg BID PO 11/20/17 21:00 11/30/17 07:51 Potassium Phosphate (K-Phos) 2,000 mg Q4H PRN PO For Phosphorus < 2.5 mg/dL 11/21/17 13:30 11/26/17 12:24 Sodium Phosphate 30 mmol/Sodium Chloride 250 ml @ 42 mls/hr UNSCH PRN IV For Phosphorus < 2.5 mg/dL 11/21/17 13:30 11/26/17 15:07 Hydralazine HCl (Apresoline Inj) 10 mg Q4H PRN IV PUSH SYS BP GREATER THAN 160 MMHG 11/21/17 16:45 12/01/17 09:14 Metoprolol Tartrate (Lopressor Inj) 5 mg Q5M PRN IV PUSH HR>100 11/22/17 00:00 12/01/17 14:40 Hydromorphone HCl (Dilaudid Pf Inj) 0.5 mg Q4H PRN IV pain >5/10 11/22/17 02:45 12/01/17 10:07 Metoprolol Tartrate (Lopressor) 50 mg Q12HR PO 11/22/17 09:00 11/30/17 07:51 Famotidine (Pepcid) 10 mg BID PO 11/24/17 21:00 11/30/17 07:51 Propofol 100 ml @ 2.04 mls/hr TITRATE PRN IV Sedation 11/25/17 12:15 11/27/17 06:11 Fluconazole/ Sodium Chloride 100 ml @ 100 mls/hr Q24H IV 11/25/17 18:00 11/30/17 17:28 Acetaminophen/ Hydrocodone Bitart (Crosby 5-325 Mg) 1 tab Q4H PRN PO PAIN 1-4 11/27/17 10:45 11/30/17 17:28 Insulin Aspart (NovoLOG SUPPLEMENTAL SCALE) 1 ACHS SLIDING SCALE SQ 11/29/17 17:00 11/29/17 21:18 Sodium Chloride 1,000 ml @ 75 mls/hr [id number] IV 11/29/17 15:45 11/30/17 16:04 Objective Remarks GENERAL: Elderly female resting in bed on BiPAP. SKIN: Warm and dry. Multiple scattered bruises HEAD: Normocephalic. EYES: No injection or drainage. NECK: Supple, trachea midline. CARDIOVASCULAR: Regular rate and rhythm without murmurs. RESPIRATORY: On BiPAP. Clear anteriorly. GASTROINTESTINAL: Abdomen soft. EXTREMITIES: No cyanosis. Generalized edema NEUROLOGICAL: Confused. Talking gibberish into BiPAP. Assessment/Plan Problem List: (1) Idiopathic thrombocytopenia purpura ICD Codes: D69.3 - Immune thrombocytopenic purpura Status: Acute Plan: --platelets may be lower due to consumption and antibiotics. --had splenectomy in 2009. --was treated with Nplate in the past with good response. --per , patient's baseline is between 50-70K and she has not required treatment for ITP since spleen removal several years ago. --platelet count has been fluctuating between 40,000-70,000. --no indication to start treatment for the idiopathic thrombocytopenic purpura at this point. (2) Arterial occlusion ICD Codes: I70.90 - Unspecified atherosclerosis Plan: --started back on heparin prophylaxis on 11/29 --History of left popliteal arterial occlusion, likely an embolic event. --had embolectomy in September of this year. then started on Pradaxa, but later switched to Xarelto. --presented with abdominal pain and could have ischemic bowel (3) Abdominal pain ICD Codes: R10.9 - Unspecified abdominal pain Status: Resolved Plan: --EGD on 11/25 showed erosive gastritis of the cardia, possibly related to NGT injury. NGT was removed during procedure. --Cx on 11/26 showed severe colitis --presented with acute severe abdominal pain. --CT did not show any bowel obstruction. --Ultrasound also negative for occlusion or stenosis. 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 h/o Chronic anemia. Chronic back pain. Multiple compression fractures. Chronic obstructive pulmonary disease. Hypertension. Left popliteal arterial occlusion. Plan 1. Transfuse 1 unit platelets prior to angiogram today 2. Monitor for bleeding 3. Heparin prophylaxis currently on hold 4. Continue to monitor CBC Discussed with Dr Linares Attending Statement The exam, history, and the medical decision-making described in the above note were completed with the assistance of the mid-level provider. I reviewed and agree with the findings presented. I attest that I had a [id number] encounter with the patient on the same day, and personally performed and documented my assessment and findings in the medical record. No obvious bleeding. Still confused. Plt down to 22K. transfuse platelet. Continue to hold anticoagulation. Problem Qualifiers (1) Abdominal pain: Qualified Codes: R10.84 - Generalized abdominal pain Cortney Mahmood Dec 01, 2017 14:51 Braden Luong MD Dec 01, 2017 17:01
--- NOTE | 2017-12-01 15:49 | HHI.IDPN ---
Subjective Subjective Remarks On BIPAP sp sigmoidoscopy: mucosae edematous with small 3-5 mm uilcers cont ot have bandemia BC neg @ 1 day lactic acid wnl Creatinine up Antibiotics fluconazole Allergies: Coded Allergies: Sulfa (Sulfonamide Antibiotics) (Verified Allergy, Severe, Hives, 11/16/17) ciprofloxacin (Verified Allergy, Severe, Hives, 11/16/17) Objective . Vital Signs Date Time Temp Pulse Resp B/P (MAP) Pulse Ox O2 Delivery O2 Flow Rate FiO2 12/01/17 15:17 99.9 122 23 121/75 99 12/01/17 13:00 118 12/01/17 12:00 99 12/01/17 11:00 93 12/01/17 10:00 96 12/01/17 09:10 Nasal Cannula 3.00 12/01/17 09:00 92 12/01/17 08:49 100 40 12/01/17 08:49 100 BiPAP 40 12/01/17 08:00 92 12/01/17 07:00 92 12/01/17 06:00 87 12/01/17 04:00 98.8 87 25 149/81 (103) 96 12/01/17 04:00 87 12/01/17 03:29 94 40 12/01/17 02:00 87 12/01/17 00:13 97 40 12/01/17 00:00 99.5 90 26 138/82 (100) 98 12/01/17 00:00 90 11/30/17 22:00 85 11/30/17 20:57 99 40 11/30/17 20:27 98 Nasal Cannula 4.00 11/30/17 20:00 100.0 90 115/90 (98) 98 11/30/17 20:00 90 11/30/17 18:00 90 11/30/17 16:00 89 11/30/17 16:00 99.2 89 46 146/84 (104) 97 12/01/17 12/01/17 12/02/17 15:00 23:00 07:00 Intake Total 50 ml 50 ml Balance 50 ml 50 ml Blood Product IV Normal Saline Flush 50 ml Other 50 ml . Laboratory Tests Test 11/30/17 05:41 12/01/17 09:52 White Blood Count 5.3 TH/MM3 6.1 TH/MM3 Red Blood Count 3.09 MIL/MM3 3.04 MIL/MM3 Hemoglobin 10.2 GM/DL 10.0 GM/DL Hematocrit 30.8 % 30.2 % Mean Corpuscular Volume 99.7 FL 99.3 FL Mean Corpuscular Hemoglobin 33.0 PG 33.0 PG Mean Corpuscular Hemoglobin Concent 33.1 % 33.3 % Red Cell Distribution Width 24.8 % 25.0 % Platelet Count 26 TH/MM3 22 TH/MM3 Mean Platelet Volume 9.2 FL 10.0 FL Neutrophils (%) (Auto) 73.1 % Lymphocytes (%) (Auto) 16.0 % Monocytes (%) (Auto) 10.3 % Eosinophils (%) (Auto) 0.4 % Basophils (%) (Auto) 0.2 % Neutrophils # (Auto) 4.5 TH/MM3 Lymphocytes # (Auto) 1.0 TH/MM3 Monocytes # (Auto) 0.6 TH/MM3 Eosinophils # (Auto) 0.0 TH/MM3 Basophils # (Auto) 0.0 TH/MM3 CBC Comment AUTO DIFF Differential Total Cells Counted 100 Neutrophils % (Manual) 52 % Band Neutrophils % 26 % Lymphocytes % 13 % Monocytes % 7 % Neutrophils # (Manual) 4.9 TH/MM3 Myelocytes 2 % Toxic Granulation 1+ Platelet Estimate LOW Platelet Morphology Comment NORMAL Ovalocytes 1+ Laboratory Tests Test 11/30/17 05:41 12/01/17 09:52 12/01/17 13:31 Blood Urea Nitrogen 44 MG/DL 51 MG/DL Creatinine 2.01 MG/DL 2.33 MG/DL Random Glucose 109 MG/DL 98 MG/DL Total Protein 6.2 GM/DL 6.4 GM/DL Calcium Level 7.4 MG/DL 7.1 MG/DL Sodium Level 144 MEQ/L 147 MEQ/L Potassium Level 3.8 MEQ/L 4.0 MEQ/L Chloride Level 112 MEQ/L 115 MEQ/L Carbon Dioxide Level 23.6 MEQ/L 23.2 MEQ/L Anion Gap 8 MEQ/L 9 MEQ/L Estimat Glomerular Filtration Rate 25 ML/MIN 21 ML/MIN Protein Corrected Calcium 7.9 MG/DL 7.5 MG/DL Lactic Acid Level 0.7 mmol/L Microbiology Date/Time Source Procedure Growth Status 11/30/17 16:45 Blood Peripheral Aerobic Blood Culture - Preliminary NO GROWTH IN 1 DAY Resulted 11/30/17 16:45 Blood Peripheral Anaerobic Blood Culture - Preliminary NO GROWTH IN 1 DAY Resulted 11/30/17 16:40 Blood Peripheral Aerobic Blood Culture - Preliminary NO GROWTH IN 1 DAY Resulted 11/30/17 16:40 Blood Peripheral Anaerobic Blood Culture - Preliminary NO GROWTH IN 1 DAY Resulted Imaging Last Impressions Head CT 11/30/17 0000 Signed Impressions: Service Date/Time: Thursday, November 30, 2017 12:15 - CONCLUSION: Negative noncontrast head CT. Ousmane Aguilar MD Chest X-Ray 11/30/17 0000 Signed Impressions: Service Date/Time: Thursday, November 30, 2017 17:02 - CONCLUSION: Bibasilar increased density characteristic of underlying air space disease and bilateral effusions. Otherwise stable chest status post extubation. COPD. Fernando Shaver MD Abdomen X-Ray 11/23/17 0000 Signed Impressions: Service Date/Time: Thursday, November 23, 2017 06:14 - CONCLUSION: Nonobstructive bowel gas pattern without significant change. Ousmane Aguilar MD Brain MRI 11/20/17 1409 Signed Impressions: Service Date/Time: October 20:54 - CONCLUSION: 1. No acute intracranial abnormality. Right-sided mastoid air cell disease. No recent infarct, mass effect or shift. Roby Brito MD Lower Extremity Ultrasound 11/20/17 0000 Signed Impressions: Service Date/Time: October 11:48 - CONCLUSION: 1. No evidence of DVT. 2. Small right Stovall's cyst. Keven Lake MD Chest CT 11/19/17 0000 Signed Impressions: Service Date/Time: Sunday, November 19, 2017 17:10 - CONCLUSION: Minimal consolidative changes as above Small pleural effusions. Luis A Castillo MD FACR Abdomen/Pelvis CT 11/19/17 0000 Signed Impressions: Service Date/Time: Sunday, November 19, 2017 17:10 - CONCLUSION: Trace ascites or subcapsular fluid around liver Prominent gallbladder Luis A Castillo MD FACR Abdomen Ultrasound 11/17/17 0000 Signed Impressions: Service Date/Time: Friday, November 17, 2017 08:01 - CONCLUSION: Negative for occlusion or significant stenosis. Luis A Castillo MD FACR Physical Exam CONSTITUTIONAL/GENERAL: Awake, very confused, not following commands SKIN: No jaundice, rashes, or lesions. Skin temperature appropriate. Not diaphoretic. EYES: Pupils equal and round and reactive. Extraocular motions intact. No scleral icterus. No injection or drainage. Fundi not examined. ENT: Hearing grossly normal.Orally intubated CARDIOVASCULAR: Regular rate and rhythm without murmurs, gallops, or rubs. No JVD. Peripheral pulses symmetric. RESPIRATORY/CHEST: Symmetric, unlabored respirations. Clear to auscultation. Breath sounds equal bilaterally. No wheezes, rales, or rhonchi. GASTROINTESTINAL: Abdomen soft, + tender to palpation (diffusely - grimacing), moderately distended. No hepato-splenomegaly, or palpable masses. No guarding. Bowel sounds present. GENITOURINARY: Without palpable bladder distension. MUSCULOSKELETAL: Extremities without clubbing, cyanosis, or edema. No joint tenderness or effusion noted. No calf tenderness. No mottling or clubbing. LINE: No evidence of infection NEUROLOGICAL:obtunded, confused and encephalopathic. Moves all extremities. Not following PSYCHIATRIC: not agitated Assessment & Plan Remarks IMPRESSION Fever, low grade - ? source UTI? - funguria Admitted with ileus, now having diarrhea aftr with laxative treatment - c.diff negative Probably ischemic colitis GIB Encephalopathy Prominent bandemia - PLAN start zosyn On Diflucan fu CXR obtain sputum clx if feasible UA/C+S D/W RN Spoke with at bedside dw Dr Estuardo Angulo,Mary Anne Cotter MD Dec 01, 2017 15:49
--- NOTE | 2017-12-01 15:58 | HHI.PR ---
cc: Eriberto oBx MD Subjective Subjective Notes Reconsult for ischemic colitis s/p flex sigmoidoscopy shows abnormal mucosa in the sigmoid colon; Objective Vitals/I&O Vital Signs Date Time Temp Pulse Resp B/P (MAP) Pulse Ox O2 Delivery O2 Flow Rate FiO2 12/01/17 15:17 99.9 122 23 121/75 99 12/01/17 09:10 Nasal Cannula 3.00 12/01/17 08:49 40 Labs Laboratory Tests Test 12/01/17 09:52 12/01/17 13:31 White Blood Count 6.1 Red Blood Count 3.04 Hemoglobin 10.0 Hematocrit 30.2 Mean Corpuscular Volume 99.3 Mean Corpuscular Hemoglobin 33.0 Mean Corpuscular Hemoglobin Concent 33.3 Red Cell Distribution Width 25.0 Platelet Count 22 Mean Platelet Volume 10.0 Neutrophils (%) (Auto) 73.1 Lymphocytes (%) (Auto) 16.0 Monocytes (%) (Auto) 10.3 Eosinophils (%) (Auto) 0.4 Basophils (%) (Auto) 0.2 Neutrophils # (Auto) 4.5 Lymphocytes # (Auto) 1.0 Monocytes # (Auto) 0.6 Eosinophils # (Auto) 0.0 Basophils # (Auto) 0.0 CBC Comment AUTO DIFF Differential Total Cells Counted 100 Neutrophils % (Manual) 52 Band Neutrophils % 26 Lymphocytes % 13 Monocytes % 7 Neutrophils # (Manual) 4.9 Myelocytes 2 Toxic Granulation 1+ Platelet Estimate LOW Platelet Morphology Comment NORMAL Ovalocytes 1+ Blood Urea Nitrogen 51 Creatinine 2.33 Random Glucose 98 Total Protein 6.4 Calcium Level 7.1 Sodium Level 147 Potassium Level 4.0 Chloride Level 115 Carbon Dioxide Level 23.2 Anion Gap 9 Estimat Glomerular Filtration Rate 21 Protein Corrected Calcium 7.5 Lactic Acid Level 0.7 Date/Time Source Procedure Growth Status 11/30/17 16:45 Blood Peripheral Aerobic Blood Culture - Preliminary NO GROWTH IN 1 DAY Resulted 11/30/17 16:45 Blood Peripheral Anaerobic Blood Culture - Preliminary NO GROWTH IN 1 DAY Resulted 11/18/17 14:25 Stool Stool Stool Occult Blood (KIM) - Final HEMOCCULT POSITIVE Complete 3/27/18 17:45 Sputum Endotracheal Gram Stain - Final Complete 11/25/17 17:45 Sputum Endotracheal Sputum Culture - Final HEAVY GROWTH NORMAL RESPIRATORY [place] Complete 11/23/17 13:45 Urine Clean Catch Urine Culture - Final Swati Gl[place] Complete Radiology Last 48 hours Impressions Abdomen/Pelvis CT 11/17/17 0000 Signed Impressions: Service Date/Time: Friday, November 17, 2017 01:08 - CONCLUSION: 1. Distended stomach. 2. Fluid distended colon without dilated loops of small bowel. Víctor Bates MD Abdomen X-Ray 11/17/17 0000 Signed Impressions: Service Date/Time: Friday, November 17, 2017 07:37 - CONCLUSION: No bowel obstruction, ileus or perforation. Swapnil Saldaña MD Abdomen Ultrasound 11/17/17 0000 Signed Impressions: Service Date/Time: Friday, November 17, 2017 08:01 - CONCLUSION: Negative for occlusion or significant stenosis. Luis A Castillo MD FACR Chest X-Ray 11/16/17 [id number] Signed Impressions: Service Date/Time: Thursday, November 16, 2017 23:51 - CONCLUSION: Hyperaerated lungs. No infiltrates seen. Víctor Bates MD Cardiovascular: Regular Lungs: Clear Abdomen: Other (tender throughout abdomen ) Extremities: Other (mild BUE edema ) A/P Assessment and Plan 67 year old female with abdominal pain; lactic acidosis -s/p flex sigmoidoscopy shows ulcers; diffuse abnormal mucosa; ? ischemic colitis -Await CTA -BiPAP; CCM reconsulted -Plt 22k--- currently receiving platelets -ID following--- adding Zosyn; on Diflucan -General Surgery will continue to follow; I updated at the bedside Attending Statement The exam, history, and the medical decision-making described in the above note were completed with the assistance of the mid-level provider. I reviewed and agree with the findings presented. I attest that I had a [id number] encounter with the patient on the same day, and personally performed and documented my assessment and findings in the medical record. patient with ischemic colitis abdominal exam non-surgical today ischemia could be primary cause or secondary to perfusion issues long d/w , discussed risk/outcomes with colectomy surgery He states that she would not want surgery or a colostomy and that she would want palliative care in this setting overall poor prognosis, will follow, if worse next 24h will continue to discuss palliation with the family Nicky Neil/First Lissa MORA Dec 01, 2017 15:58 Eriberto Box MD Dec 02, 2017 12:38
[2017-12-01] MEDS: DEXTROSE 50% IN WATER 50 ML VIAL(D50) IV PUSH PRN ×2 (16:06→17:01)
--- NOTE | 2017-12-01 16:44 | PD.CONS ---
HPI Service Nephrology Consult Requested By Reason for Consult Acute Renal Failure Primary Care Physician Non-Staff History of Present Illness This is a 67 y/o female patient who was admitted on 11/16 for abdominal pain. Her creatinine on arrival was 2.1, that improved to 0.98 on the 26 of November. Since then her creatinine has increased and is 2.3 today. In September it was 0.66. She is being treated for ischemic colitis. C diff was negative. She is on IVF (D5NS@75cc/hr), has dependent edema, is currently on BiPap. PMH includes CODP and ITP. Her provides most of the information. She is a full code. (Laura Wood) Review of Systems ROS Limitations: Clinical Condition Respiratory: COMPLAINS OF: Shortness of breath Cardiovascular: COMPLAINS OF: Lower Extremity Edema (Laura Wood) Past Family Social History Allergies: Coded Allergies: Sulfa (Sulfonamide Antibiotics) (Verified Allergy, Severe, Hives, 11/16/17) ciprofloxacin (Verified Allergy, Severe, Hives, 11/16/17) Past Medical History COPD on home oxygen HTN asthma ITP Past Surgical History bone marrow bx right hip replacement c section tubal ligation Reported Medications Pradaxa (Dabigatran) 150 Mg Cap 150 Mg PO BID Hydrocodone-Acetaminophen 5-325 mg Tab 1 Tab PO Q4H PRN Albuterol Neb (Albuterol Sulfate) 2.5 Mg/3 Ml Neb 2.5 Mg NEB Q4HR NEB PRN Budesonide Neb 0.25 Mg/2 Ml Neb 0.25 Mg NEB DAILY NEB Ventolin Hfa 18 GM Inh (Albuterol Sulfate) 90 Mcg/Act Aer 2 Puff INH Q4-6H PRN Spiriva Handihaler (Tiotropium Inh) 18 Mcg Cap 18 Mcg INH DAILY 1 capsule = 18 mcg Montelukast (Montelukast Sodium) 10 Mg Tab 10 Mg PO DAILY Flexeril (Cyclobenzaprine HCl) 10 Mg Tab 20 Mg PO BID Lisinopril 20 Mg Tab 20 Mg PO DAILY Perforomist Neb (Formoterol Fumarate) 20 Mcg/2 Ml Neb 1 Nebule INH BID Active Ordered Medications Current Medications Medications (Trade) Dose Ordered Sig/Colton Route Start Time Stop Time Status Last Admin (NS Flush) 2 ml UNSCH PRN IV FLUSH 11/17/17 06:45 11/30/17 07:51 (NS Flush) 2 ml BID IV FLUSH 11/17/17 09:00 11/30/17 22:03 (Tylenol) 650 mg Q6H PRN PO 11/17/17 06:45 11/24/17 08:24 (Zofran Inj) 4 mg Q6H PRN IV PUSH 11/17/17 06:45 (Duoneb Neb) 1 ampule Q4HR NEB PRN INH 11/17/17 06:45 11/30/17 08:58 Miscellaneous Information 1 Q361D XX 11/17/17 06:45 11/17/17 06:45 (Chlorhexidine 2% Cloth) Taper DAILY@04 TOP 11/18/17 04:00 11/14/18 03:59 11/24/17 04:00 (Chlorhexidine 2% Cloth) 3 pack UNSCH PRN TOP 11/17/17 06:45 (Milk Of [place] Liq) 30 ml Q12H PRN PO 11/17/17 06:45 (Senokot) 17.2 mg Q12H PRN PO 11/17/17 06:45 11/17/17 09:11 (Dulcolax Supp) 10 mg DAILY PRN RECTAL 11/17/17 06:45 (Albuterol Neb) 2.5 mg Q4HR NEB PRN NEB 11/17/17 07:45 11/25/17 20:45 (Pulmicort Respule Neb) 0.25 mg DAILY NEB NEB 11/17/17 08:00 12/01/17 08:48 (Spiriva Inh) 18 mcg DAILY INH 11/17/17 09:00 11/30/17 07:50 Non-Formulary Medication 1 nebule BID INH 11/17/17 09:00 Future Hold (Cardizem) 60 mg Q6HR PO 11/20/17 12:00 11/30/17 17:28 (Xifaxan) 550 mg BID PO 11/20/17 21:00 11/30/17 07:51 (K-Phos) 2,000 mg Q4H PRN PO 11/21/17 13:30 11/26/17 12:24 Sodium Phosphate 30 mmol/Sodium Chloride 250 ml @ 42 mls/hr UNSCH PRN IV 11/21/17 13:30 11/26/17 15:07 (Catapres) 0.1 mg Q6H PRN PO 11/21/17 16:45 (Apresoline Inj) 10 mg Q4H PRN IV PUSH 11/21/17 16:45 12/01/17 09:14 (Lopressor Inj) 5 mg Q5M PRN IV PUSH 11/22/17 00:00 12/01/17 14:40 (Dilaudid Pf Inj) 0.5 mg Q4H PRN IV 11/22/17 02:45 12/01/17 15:25 (Lopressor) 50 mg Q12HR PO 11/22/17 09:00 11/30/17 07:51 (Pepcid) 10 mg BID PO 11/24/17 21:00 11/30/17 07:51 Propofol 100 ml @ 2.04 mls/hr TITRATE PRN IV 11/25/17 12:15 11/27/17 06:11 Fluconazole/ Sodium Chloride 100 ml @ 100 mls/hr Q24H IV 11/25/17 18:00 11/30/17 17:28 (Hines 5-325 Mg) 1 tab Q4H PRN PO 11/27/17 10:45 11/30/17 17:28 (D50w (Vial) Inj) 50 ml UNSCH PRN IV PUSH 11/29/17 15:45 12/01/17 16:06 (Glucagon Inj) 1 mg UNSCH PRN OTHER 11/29/17 15:45 (NovoLOG SUPPLEMENTAL SCALE) 1 ACHS SLIDING SCALE SQ 11/29/17 17:00 11/29/17 21:18 Sodium Chloride 1,000 ml @ 75 mls/hr [id number] IV 11/29/17 15:45 11/30/17 16:04 Sodium Chloride 250 ml @ 15 mls/hr ONCE ONCE IV 12/01/17 12:45 12/02/17 05:24 Piperacillin Sod/ Tazobactam Sod 50 ml @ 100 mls/hr Q6H IV 12/01/17 16:00 Miscellaneous Information ALL NURSING DEPARTME... UNSCH PRN .XX 12/01/17 12:02 12/02/17 12:01 Family History Unable to obtain Social History Former Smoking and ETOH use Retired Full code (Laura Wood) Physical Exam Vital Signs Vital Signs Date Time Temp Pulse Resp B/P (MAP) Pulse Ox O2 Delivery O2 Flow Rate FiO2 12/01/17 15:17 99.9 122 23 121/75 99 12/01/17 13:00 118 12/01/17 12:00 99 12/01/17 11:00 93 12/01/17 10:00 96 12/01/17 09:10 Nasal Cannula 3.00 12/01/17 09:00 92 12/01/17 08:49 100 40 12/01/17 08:49 100 BiPAP 40 12/01/17 08:00 92 12/01/17 07:00 92 12/01/17 06:00 87 12/01/17 04:00 98.8 87 25 149/81 (103) 96 12/01/17 04:00 87 12/01/17 03:29 94 40 12/01/17 02:00 87 12/01/17 00:13 97 40 12/01/17 00:00 99.5 90 26 138/82 (100) 98 12/01/17 00:00 90 11/30/17 22:00 85 11/30/17 20:57 99 40 11/30/17 20:27 98 Nasal Cannula 4.00 11/30/17 20:00 100.0 90 115/90 (98) 98 11/30/17 20:00 90 11/30/17 18:00 90 Physical Exam Young elderly female Restless, agitated, on BiPap Lungs with scattered rales Abdomen round, distended, firm 2-3+ edema to lower extremities Laboratory Laboratory Tests Test 12/01/17 09:52 12/01/17 13:31 White Blood Count 6.1 Red Blood Count 3.04 Hemoglobin 10.0 Hematocrit 30.2 Mean Corpuscular Volume 99.3 Mean Corpuscular Hemoglobin 33.0 Mean Corpuscular Hemoglobin Concent 33.3 Red Cell Distribution Width 25.0 Platelet Count 22 Mean Platelet Volume 10.0 Neutrophils (%) (Auto) 73.1 Lymphocytes (%) (Auto) 16.0 Monocytes (%) (Auto) 10.3 Eosinophils (%) (Auto) 0.4 Basophils (%) (Auto) 0.2 Neutrophils # (Auto) 4.5 Lymphocytes # (Auto) 1.0 Monocytes # (Auto) 0.6 Eosinophils # (Auto) 0.0 Basophils # (Auto) 0.0 CBC Comment AUTO DIFF Differential Total Cells Counted 100 Neutrophils % (Manual) 52 Band Neutrophils % 26 Lymphocytes % 13 Monocytes % 7 Neutrophils # (Manual) 4.9 Myelocytes 2 Differential Comment FINAL DIFF MANUAL Toxic Granulation 1+ Platelet Estimate LOW Platelet Morphology Comment NORMAL Ovalocytes 1+ Blood Urea Nitrogen 51 Creatinine 2.33 Random Glucose 98 Total Protein 6.4 Calcium Level 7.1 Sodium Level 147 Potassium Level 4.0 Chloride Level 115 Carbon Dioxide Level 23.2 Anion Gap 9 Estimat Glomerular Filtration Rate 21 Protein Corrected Calcium 7.5 Lactic Acid Level 0.7 Date/Time Source Procedure Growth Status 11/30/17 16:45 Blood Peripheral Aerobic Blood Culture - Preliminary NO GROWTH IN 1 DAY Resulted 11/30/17 16:45 Blood Peripheral Anaerobic Blood Culture - Preliminary NO GROWTH IN 1 DAY Resulted 11/18/17 14:25 Stool Stool Stool Occult Blood (KIM) - Final HEMOCCULT POSITIVE Complete 11/25/17 17:45 Sputum Endotracheal Gram Stain - Final Complete 11/25/17 17:45 Sputum Endotracheal Sputum Culture - Final HEAVY GROWTH NORMAL RESPIRATORY [place] Complete 11/23/17 13:45 Urine Clean Catch Urine Culture - Final Swati Glabrata Complete (Laura Wood) Result Diagram: 12/01/17 0952 12/01/17 0952 Imaging Last [address] 11/30/17 0000 Signed Impressions: Service Date/Time: Thursday, November 30, 2017 12:15 - CONCLUSION: Negative noncontrast head CT. Ousmane Aguilar MD Chest X-Ray 11/30/17 0000 Signed Impressions: Service Date/Time: Thursday, November 30, 2017 17:02 - CONCLUSION: Bibasilar increased density characteristic of underlying air space disease and bilateral effusions. Otherwise stable chest status post extubation. COPD. Fernando Shaver MD (Laura Wood) Assessment and Plan Problem List: (1) NISHANT (acute kidney injury) ICD Codes: N17.9 - Acute kidney failure, unspecified Status: Acute Plan: She has normal renal function at baseline NISHANT initially due to prerenal azotemia. Renal function had improved and then has gotten worse since the 26 of November Looking back she was hypotensive on and . Most likely has suffered renal hypoperfusion. She is non oliguric, have asked for a [place] to be placed. She is fluid overloaded, weight is up 15 kg Stop IVF Start lasix 40 mg IV BID Repeat labs, monitor urine output. Avoid nephrotoxic agents. Obtain renal US. Prognosis is guarded. (2) Abdominal pain ICD Codes: R10.9 - Unspecified abdominal pain Status: Resolved Plan: With ischemic colitis On IV flagyl and zosyn. GI following (3) Hypertension ICD Codes: I10 - Essential (primary) hypertension Status: Acute Plan: Continue medications as ordered (Laura Wood) Assessment and Plan patient was seen and examined. NISHANT likely due to ATN. Volume overload is present. Start diuresis. Prognosis is guarded, at risk for multiple complications. (Monty Holt MD) Problem Qualifiers (1) Abdominal pain: Qualified Codes: R10.84 - Generalized abdominal pain Laura Wood Dec 01, 2017 16:44 Monty Holt MD Dec 02, 2017 10:10
[2017-12-01] MEDS: PIPERACIL-TAZO 3.375 GM PREMIX 50 ML IV SCH ×2 (16:56→22:21)
--- NOTE | 2017-12-01 17:14 | HHI.PR ---
Subjective Remarks ALERT COMBATIVE ON O2 Objective Vital Signs Date Time Temp Pulse Resp B/P (MAP) Pulse Ox O2 Delivery O2 Flow Rate FiO2 12/01/17 16:17 100 40 12/01/17 15:17 99.9 122 23 121/75 99 12/01/17 13:00 118 12/01/17 12:00 99 12/01/17 11:59 99 40 12/01/17 11:00 93 12/01/17 10:00 96 12/01/17 09:10 Nasal Cannula 3.00 12/01/17 09:00 92 12/01/17 08:49 100 40 12/01/17 08:49 100 BiPAP 40 12/01/17 08:00 92 12/01/17 07:00 92 12/01/17 06:00 87 12/01/17 04:00 98.8 87 25 149/81 (103) 96 12/01/17 04:00 87 12/01/17 03:29 94 40 12/01/17 02:00 87 12/01/17 00:13 97 40 12/01/17 00:00 99.5 90 26 138/82 (100) 98 12/01/17 00:00 90 11/30/17 22:00 85 11/30/17 20:57 99 40 11/30/17 20:27 98 Nasal Cannula 4.00 11/30/17 20:00 100.0 90 115/90 (98) 98 11/30/17 20:00 90 11/30/17 18:00 90 I/O 11/30/17 11/30/17 11/30/17 12/01/17 12/01/17 12/01/17 07:00 15:00 23:00 07:00 15:00 23:00 Intake Total 845 ml 250 ml 1461 ml 50 ml 420 ml Output Total 250 ml 400 ml 700 ml Balance 595 ml 250 ml 1061 ml -700 ml 50 ml 420 ml Intake Oral 240 ml 472 ml IV Total 605 ml 989 ml Platelets 250 ml 370 ml Blood Product IV Normal Saline Flush 50 ml Other 50 ml Output Urine Total 250 ml 400 ml 700 ml # Bowel Movements 0 3 1 Result Diagram: 12/01/1752 12/01/1752 Objective Remarks GENERAL: SKIN: Warm and dry. HEAD: Atraumatic. Normocephalic. EYES: Pupils equal and round. No scleral icterus. No injection or drainage. ENT: No nasal bleeding or discharge. Mucous membranes pink and moist. NECK: Trachea midline. No JVD. CARDIOVASCULAR: Regular rate and rhythm. RESPIRATORY: No accessory muscle use. Clear to auscultation. Breath sounds equal bilaterally. GASTROINTESTINAL: Abdomen soft, non-tender, nondistended. Hepatic and splenic margins not palpable. MUSCULOSKELETAL: Extremities without clubbing, cyanosis, or edema. No obvious deformities. NEUROLOGICAL: Awake and alert. No obvious cranial nerve deficits. Motor grossly within normal limits. Five out of 5 muscle strength in the arms and legs. Normal speech. PSYCHIATRIC: Appropriate mood and affect; insight and judgment normal. Assessment and Plan Assessment and Plan IMPRESSION RESPIRATORY FAILURE COPD METABOLIC ENCEPHALOPATHY "? PNA PLAN O2/BIPAP NEEDED ANTIBX PULM TOILET F/U CXRAY Dereck Harden MD Dec 01, 2017 17:14
--- NOTE | 2017-12-01 17:30 | PD.CONS ---
Consult Service Palliative Care . Consult Requested By Dr. Dean . Primary Care Physician Non-Staff . Reason for Consultation a. To assist with evaluation and management of symptoms including: dyspnea, pain. b. To assist medical decision maker(s) with: better understanding of current medical conditions; weighing benefits/burdens of medical treatment options; making medical treatment decisions. . (Rosalinda Vaughan) HPI History of Present Illness Mrs. Cruz is a 67 year old female with past medical history of COPD on home oxygen, hypertension, asthma, left popliteal arterial occlusion, multiple compression fractures, chronic anemia, chronic back pain and ITP. Patient underwent splenectomy in 2009, was treated with Nplate with good response. . Patient presented to [facility] on 11/17/17 with severe abdominal pain. She reported nausea without vomiting. Patient reported increasing pain and constipation in the week prior to admission. Initial evaluation revealed: * CT abdomen/pelvis-diffuse gas and fluid distention of the bowel and stomach most characteristic of diffuse ileus, no free air, small amount of free fluid, mild anasarca. * Abdomen ultrasound - negative for occlusion or significant stenosis. NG tube was placed, rectal tube placed with minimal output. Counting Machine Operator, Dr. Luong was consulted for history of embolic event and chronic ITP. General surgery was consulted for small bowel obstruction with recommendation for repeat CT scan with contrast, n.p.o. status, NG tube to low intermittent wall suction and maintain rectal tube, no surgical intervention recommended. Patient underwent sigmoidoscopy with biopsies on 11/26/17, descending colon biopsy revealed fibroinflammatory exudate and features consistent with an ulcer , rectal ulcer biopsy revealed acute colitis with features of ulceration, differential diagnosis includes ischemic colitis and pseudomembranous colitis. On 12/01/17, general surgery was reconsulted for possible ischemic colitis with recommendation for CTA. Infectious disease, Dr. Angulo is following. Patient remains critically ill in ICU. On BiPAP intermittently, fever with worsening renal function. Creatinine 2.33. Nephrology was consulted for acute renal failure, worsening renal function likely due to renal hypoperfusion during hospitalization. Recommendations to stop IV fluid, Lasix ordered, plan to continue monitoring labs, urine output. Renal ultrasound ordered. Critical care were consulted for worsening condition. Palliative care consulted to assist with further clarification of treatment goals. . Function/Cognitive Trajectory Patient was functioning normally at home, independent for all ADLs. Were oxygen 2 L via nasal cannula continuous since October 2015. . (Rosalinda Vaugahn) Review of Systems Constitutional: COMPLAINS OF: Fatigue, Weight loss, Change in appetite ( Decreased), Generalized weakness Respiratory: COMPLAINS OF: Cough, Shortness of breath Cardiovascular: COMPLAINS OF: Dyspnea on Exertion, Lower Extremity Edema Gastrointestinal: COMPLAINS OF: Abdominal pain, Anorexia, Bloating Musculoskeletal: COMPLAINS OF: Joint pain, Back pain (Chronic back pain), Decreased range of motion Hematologic/Lymphatics: COMPLAINS OF: Bruising, History of transfusions ( Secondary to ITP) Psychiatric: COMPLAINS OF: Anxiety (Secondary to dyspnea) (Rosalinda Vaughan) Past Family Social History Coded Allergies: Sulfa (Sulfonamide Antibiotics) (Verified Allergy, Severe, Hives, 11/16/17) ciprofloxacin (Verified Allergy, Severe, Hives, 11/16/17) Past Medical History Chronic ITP Chronic anemia Chronic back pain COPD---oxygen dependent Hypertension LEFT popliteal artery occlusion Arthritis . Past Surgical History Bone marrow biopsy Splenectomy in 2009 Left lower embolectomy in Sep 2017 C section tubal ligation RIGHT cataract surgery RIGHT total hip replacement Tonsillectomy . Reported Medications Reported Meds & Active Scripts Active Hydrocodone-Acetaminophen 5-325 mg Tab 1 Tab PO Q4H PRN Reported Xarelto (Rivaroxaban) 20 Mg Tab 20 Mg PO DAILY Albuterol Neb (Albuterol Sulfate) 2.5 Mg/3 Ml Neb 2.5 Mg NEB Q4HR NEB PRN Budesonide Neb 0.25 Mg/2 Ml Neb 0.25 Mg NEB DAILY NEB Ventolin Hfa 18 GM Inh (Albuterol Sulfate) 90 Mcg/Act Aer 2 Puff INH Q4-6H PRN Spiriva Handihaler (Tiotropium Inh) 18 Mcg Cap 18 Mcg INH DAILY 1 capsule = 18 mcg Montelukast (Montelukast Sodium) 10 Mg Tab 10 Mg PO DAILY Flexeril (Cyclobenzaprine HCl) 10 Mg Tab 20 Mg PO BID Lisinopril 20 Mg Tab 20 Mg PO DAILY Perforomist Neb (Formoterol Fumarate) 20 Mcg/2 Ml Neb 1 Nebule INH BID . Current Medications Medications (Trade) Dose Ordered Sig/Colton Route Start Time Stop Time Status Last Admin (NS Flush) 2 ml UNSCH PRN IV FLUSH 11/17/17 06:45 11/30/17 07:51 (NS Flush) 2 ml BID IV FLUSH 11/17/17 09:00 11/30/17 22:03 (Tylenol) 650 mg Q6H PRN PO 11/17/17 06:45 11/24/17 08:24 (Zofran Inj) 4 mg Q6H PRN IV PUSH 11/17/17 06:45 (Duoneb Neb) 1 ampule Q4HR NEB PRN INH 11/17/17 06:45 11/30/17 08:58 Miscellaneous Information 1 Q361D XX 11/17/17 06:45 11/17/17 06:45 (Chlorhexidine 2% Cloth) Taper DAILY@04 TOP 11/18/17 04:00 11/14/18 03:59 11/24/17 04:00 (Chlorhexidine 2% Cloth) 3 pack UNSCH PRN TOP 11/17/17 06:45 (Milk Of Magnesia Liq) 30 ml Q12H PRN PO 11/17/17 06:45 (Senokot) 17.2 mg Q12H PRN PO 11/17/17 06:45 11/17/17 09:11 (Dulcolax Supp) 10 mg DAILY PRN RECTAL 11/17/17 06:45 (Albuterol Neb) 2.5 mg Q4HR NEB PRN NEB 11/17/17 07:45 11/25/17 20:45 (Pulmicort Respule Neb) 0.25 mg DAILY NEB NEB 11/17/17 08:00 12/01/17 08:48 (Spiriva Inh) 18 mcg DAILY INH 11/17/17 09:00 11/30/17 07:50 Non-Formulary Medication 1 nebule BID INH 11/17/17 09:00 Future Hold (Cardizem) 60 mg Q6HR PO 11/20/17 12:00 11/30/17 17:28 (Xifaxan) 550 mg BID PO 11/20/17 21:00 11/30/17 07:51 (K-Phos) 2,000 mg Q4H PRN PO 11/21/17 13:30 11/26/17 12:24 Sodium Phosphate 30 mmol/Sodium Chloride 250 ml @ 42 mls/hr UNSCH PRN IV 11/21/17 13:30 11/26/17 15:07 (Catapres) 0.1 mg Q6H PRN PO 11/21/17 16:45 (Apresoline Inj) 10 mg Q4H PRN IV PUSH 11/21/17 16:45 12/01/17 09:14 (Lopressor Inj) 5 mg Q5M PRN IV PUSH 11/22/17 00:00 12/01/17 14:40 (Dilaudid Pf Inj) 0.5 mg Q4H PRN IV 11/22/17 02:45 12/01/17 15:25 (Lopressor) 50 mg Q12HR PO 11/22/17 09:00 11/30/17 07:51 (Pepcid) 10 mg BID PO 11/24/17 21:00 11/30/17 07:51 Propofol 100 ml @ 2.04 mls/hr TITRATE PRN IV 11/25/17 12:15 11/27/17 06:11 Fluconazole/ Sodium Chloride 100 ml @ 100 mls/hr Q24H IV 11/25/17 18:00 11/30/17 17:28 ([place] 5-325 Mg) 1 tab Q4H PRN PO 11/27/17 10:45 11/30/17 17:28 (D50w (Vial) Inj) 50 ml UNSCH PRN IV PUSH 11/29/17 15:45 12/01/17 16:06 (Glucagon Inj) 1 mg UNSCH PRN OTHER 11/29/17 15:45 (NovoLOG SUPPLEMENTAL SCALE) 1 ACHS SLIDING SCALE SQ 11/29/17 17:00 11/29/17 21:18 Sodium Chloride 250 ml @ 15 mls/hr ONCE ONCE IV 12/01/17 12:45 12/02/17 05:24 Piperacillin Sod/ Tazobactam Sod 50 ml @ 100 mls/hr Q6H IV 12/01/17 16:00 Miscellaneous Information ALL NURSING DEPARTME... UNSCH PRN .XX 12/01/17 12:02 12/02/17 12:01 (Lasix Inj) 40 mg BID@09,18 IV PUSH 12/01/17 18:00 UNV Family History Mother had hypertension. Father had heart disease. . Substance Use Tobacco: Quit smoking 2 years ago, smoked 1 PPD from -. Alcohol: Prior alcohol use. Prescription med abuse: None. Illicits: None. . Psychosocial History Previously lived in [place]. Moved back to [place] in 2005. Has 2 children, one son Carlos and 1 daughter Ludy from a prior marriage. to her which for the past 11 years. She is a retired from [employer]. . . Spiritual/Cultural Factors Episcopalian angela . (Rosalinda Vaughan) Living Will: Completed, but not made available Health Care Surrogate: Completed, but not made available Durable Power of Primer Charging Tool Setter: Never completed Health Care Surrogate(s): Patient is not capacitated to make her own healthcare decisions given clinical condition, unlikely she will regain capacity. Copies requested. Spouse indicates that he is designated healthcare surrogate. According to [place] statute, healthcare proxy decision making falls the patient's spouse. . Today's verbally stated goals: Patient is not capacitated to make her own health care decisions. . Family/friends goals: Spouse and children have elected NO CODE (DNR/DNI) stating she wants to be allowed to peacefully and naturally. They desire continued aggressive care short of NO CODE DNR/DNI until the family arrives. Family meeting arranged after children arrived from [place]. . Ethical and Legal Issues Patient is not capacitated to make her own healthcare decisions given clinical condition, unlikely she will regain capacity. Copies requested. Spouse indicates that he is designated healthcare surrogate. According to [place] statute, healthcare proxy decision making falls the patient's spouse. . (Rosalinda Vaughan) Physical Exam Vital Signs Date Time Temp Pulse Resp B/P (MAP) Pulse Ox O2 Delivery O2 Flow Rate FiO2 12/01/17 16:17 100 40 12/01/17 15:17 99.9 122 23 121/75 99 12/01/17 13:00 118 12/01/17 12:00 99 12/01/17 11:59 99 40 12/01/17 11:00 93 12/01/17 10:00 96 12/01/17 09:10 Nasal Cannula 3.00 12/01/17 09:00 92 12/01/17 08:49 100 40 12/01/17 08:49 100 BiPAP 40 12/01/17 08:00 92 12/01/17 07:00 92 12/01/17 06:00 87 12/01/17 04:00 98.8 87 25 149/81 (103) 96 12/01/17 04:00 87 12/01/17 03:29 94 40 12/01/17 02:00 87 12/01/17 00:13 97 40 12/01/17 00:00 99.5 90 26 138/82 (100) 98 12/01/17 00:00 90 11/30/17 22:00 85 11/30/17 20:57 99 40 11/30/17 20:27 98 Nasal Cannula 4.00 11/30/17 20:00 100.0 90 115/90 (98) 98 11/30/17 20:00 90 11/30/17 18:00 90 12/01/17 12/02/17 19:00 07:00 Intake Total 470 ml Balance 470 ml Platelets 370 ml Blood Product IV Normal Saline Flush 50 ml Other 50 ml Exam CONSTITUTIONAL/GENERAL: This is an adequately nourished patient, restless, confused patient. TUBES/LINES/DRAINS: BiPAP, PIV. SKIN: Ecchymoses on all extremities. Erythema on upper extremities. Skin temperature appropriate. Not diaphoretic. HEAD: Atraumatic. Normocephalic. EYES: eyes closed. Only opens briefly. ENT: Hearing grossly normal. Nose without bleeding or purulent drainage. Throat unable to visualize due to BiPAP. NECK: Trachea midline. CARDIOVASCULAR: Tachycardic. No JVD. Peripheral pulses symmetric. RESPIRATORY/CHEST: labored, shallow respirations on BiPAP. Scattered course breath sounds. Diminished bases. GASTROINTESTINAL: Abdomen soft, tender, distended. Bowel sounds hypoactive. GENITOURINARY: Without palpable bladder distension. MUSCULOSKELETAL: Extremities with generalized edema. No mottling or clubbing. LYMPHATICS: No palpable cervical or supraclavicular adenopathy. NEUROLOGICAL: Awakens, confused. Difficult to understand due to BiPAP. Unable to answer most questions, occasionally nods yes AND no to the same question. Not following commands for me. Moves upper extremities. PSYCHIATRIC: Nods yes to feeling nervous. Restless. Confused. . (Rosalinda Vaughan) Diagnostic Tests Laboratory Laboratory Tests Test 11/29/17 10:05 11/29/17 16:20 11/30/17 01:04 11/30/17 05:41 White Blood Count 4.0 TH/MM3 (4.0-11.0) 5.3 TH/MM3 (4.0-11.0) Red Blood Count 3.44 MIL/MM3 (4.00-5.30) 3.09 MIL/MM3 (4.00-5.30) Hemoglobin 11.3 GM/DL (11.6-15.3) 10.2 GM/DL (11.6-15.3) Hematocrit 33.3 % (35.0-46.0) 30.8 % (35.0-46.0) Mean Corpuscular Volume 97.0 FL (80.0-100.0) 99.7 FL (80.0-100.0) Mean Corpuscular Hemoglobin 33.0 PG (27.0-34.0) 33.0 PG (27.0-34.0) Mean Corpuscular Hemoglobin Concent 34.0 % (32.0-36.0) 33.1 % (32.0-36.0) Red Cell Distribution Width 25.1 % (11.6-17.2) 24.8 % (11.6-17.2) Platelet Count 58 TH/MM3 (150-450) 26 TH/MM3 (150-450) Mean Platelet Volume 10.7 FL (7.0-11.0) 9.2 FL (7.0-11.0) Neutrophils (%) (Auto) 77.0 % (16.0-70.0) Lymphocytes (%) (Auto) 12.9 % (9.0-44.0) Monocytes (%) (Auto) 9.5 % (0.0-8.0) Eosinophils (%) (Auto) 0.4 % (0.0-4.0) Basophils (%) (Auto) 0.2 % (0.0-2.0) Neutrophils # (Auto) 3.1 TH/MM3 (1.8-7.7) Lymphocytes # (Auto) 0.5 TH/MM3 (1.0-4.8) Monocytes # (Auto) 0.4 TH/MM3 (0-0.9) Eosinophils # (Auto) 0.0 TH/MM3 (0-0.4) Basophils # (Auto) 0.0 TH/MM3 (0-0.2) CBC Comment AUTO DIFF Differential Total Cells Counted 100 Neutrophils % (Manual) 32 % (16-70) Band Neutrophils % 36 % (0-6) Lymphocytes % 24 % (9-44) Monocytes % 8 % (0-8) Neutrophils # (Manual) 2.7 TH/MM3 (1.8-7.7) Nucleated Red Blood Cells 3 /100 WBC (0-0) Differential Comment FINAL DIFF MANUAL Toxic Granulation 1+ (NORMAL) Platelet Estimate LOW (NORMAL) Platelet Morphology Comment NORMAL (NORMAL) Ovalocytes 1+ (NORMAL) Prothrombin Time 10.3 SEC (9.8-11.6) Prothromb Time International Ratio 1.0 RATIO Activated Partial Thromboplast Time 24.7 SEC (24.3-30.1) Fibrinogen 691 mg/dL (227-377) Blood Urea Nitrogen 41 MG/DL (7-18) 44 MG/DL (7-18) Creatinine 1.90 MG/DL (0.50-1.00) 2.01 MG/DL (0.50-1.00) Random Glucose 135 MG/DL (74-106) 109 MG/DL (74-106) Total Protein 6.7 GM/DL (6.4-8.2) 6.2 GM/DL (6.4-8.2) Albumin 2.3 GM/DL (3.4-5.0) Calcium Level 7.0 MG/DL (8.5-10.1) 7.4 MG/DL (8.5-10.1) Alkaline Phosphatase 87 U/L (45-117) Aspartate Amino Transf (AST/SGOT) 27 U/L (15-37) Alanine Aminotransferase (ALT/SGPT) 9 U/L (10-53) Total Bilirubin 0.5 MG/DL (0.2-1.0) Sodium Level 144 MEQ/L (136-145) 144 MEQ/L (136-145) Potassium Level 3.7 MEQ/L (3.5-5.1) 3.8 MEQ/L (3.5-5.1) Chloride Level 110 MEQ/L (98-107) 112 MEQ/L (98-107) Carbon Dioxide Level 24.4 MEQ/L (21.0-32.0) 23.6 MEQ/L (21.0-32.0) Anion Gap 10 MEQ/L (5-15) 8 MEQ/L (5-15) Estimat Glomerular Filtration Rate 26 ML/MIN (>89) 25 ML/MIN (>89) Protein Corrected Calcium 7.2 MG/DL (8.5-10.1) 7.9 MG/DL (8.5-10.1) Blood Gas Puncture Site RT RADIAL RT RADIAL Blood Gas Patient Temperature 98.6 98.6 Blood Gas HCO3 23 mmol/L (22-26) 24 mmol/L (22-26) Blood Gas Base Excess -1.4 mmol/L (-2-2) -2.4 mmol/L (-2-2) Blood Gas Oxygen Saturation 95 % (90-100) 97 % (90-100) Arterial Blood pH 7.35 (7.380-7.420) 7.24 (7.380-7.420) Arterial Blood Partial Pressure CO2 44 mmHg (38-42) 58 mmHg (38-42) Arterial Blood Partial Pressure O2 99 mmHg (61-120) 170 mmHg (61-120) Arterial Blood Oxygen Content 14.2 Vol % (12.0-20.0) 14.3 Vol % (12.0-20.0) Arterial Blood Carboxyhemoglobin 1.3 % (0-4) 1.0 % (0-4) Arterial Blood Methemoglobin 1.2 % (0-2) 1.4 % (0-2) Blood Gas Hemoglobin 10.5 G/DL (12.0-16.0) 10.3 G/DL (12.0-16.0) Oxygen Delivery Device NASAL CANNULA NASAL CANNULA Blood Gas Liter Flow 3 L/M 4 L/M Test 11/30/17 12:50 12/01/17 09:52 12/01/17 13:31 Blood Gas Puncture Site RT RADIAL Blood Gas Patient Temperature 98.6 Blood Gas HCO3 24 mmol/L (22-26) Blood Gas Base Excess -1.2 mmol/L (-2-2) Blood Gas Oxygen Saturation 92 % (90-100) Arterial Blood pH 7.33 (7.380-7.420) Arterial Blood Partial Pressure CO2 47 mmHg (38-42) Arterial Blood Partial Pressure O2 74 mmHg (61-120) Arterial Blood Oxygen Content 13.2 Vol % (12.0-20.0) Arterial Blood Carboxyhemoglobin 1.3 % (0-4) Arterial Blood Methemoglobin 1.3 % (0-2) Blood Gas Hemoglobin 10.1 G/DL (12.0-16.0) Oxygen Delivery Device NASAL CANNULA Blood Gas Liter Flow 3 L/M White Blood Count 6.1 TH/MM3 (4.0-11.0) Red Blood Count 3.04 MIL/MM3 (4.00-5.30) Hemoglobin 10.0 GM/DL (11.6-15.3) Hematocrit 30.2 % (35.0-46.0) Mean Corpuscular Volume 99.3 FL (80.0-100.0) Mean Corpuscular Hemoglobin 33.0 PG (27.0-34.0) Mean Corpuscular Hemoglobin Concent 33.3 % (32.0-36.0) Red Cell Distribution Width 25.0 % (11.6-17.2) Platelet Count 22 TH/MM3 (150-450) Mean Platelet Volume 10.0 FL (7.0-11.0) Neutrophils (%) (Auto) 73.1 % (16.0-70.0) Lymphocytes (%) (Auto) 16.0 % (9.0-44.0) Monocytes (%) (Auto) 10.3 % (0.0-8.0) Eosinophils (%) (Auto) 0.4 % (0.0-4.0) Basophils (%) (Auto) 0.2 % (0.0-2.0) Neutrophils # (Auto) 4.5 TH/MM3 (1.8-7.7) Lymphocytes # (Auto) 1.0 TH/MM3 (1.0-4.8) Monocytes # (Auto) 0.6 TH/MM3 (0-0.9) Eosinophils # (Auto) 0.0 TH/MM3 (0-0.4) Basophils # (Auto) 0.0 TH/MM3 (0-0.2) CBC Comment AUTO DIFF Differential Total Cells Counted 100 Neutrophils % (Manual) 52 % (16-70) Band Neutrophils % 26 % (0-6) Lymphocytes % 13 % (9-44) Monocytes % 7 % (0-8) Neutrophils # (Manual) 4.9 TH/MM3 (1.8-7.7) Myelocytes 2 % (0-0) Differential Comment FINAL DIFF MANUAL Toxic Granulation 1+ (NORMAL) Platelet Estimate LOW (NORMAL) Platelet Morphology Comment NORMAL (NORMAL) Ovalocytes 1+ (NORMAL) Blood Urea Nitrogen 51 MG/DL (7-18) Creatinine 2.33 MG/DL (0.50-1.00) Random Glucose 98 MG/DL (74-106) Total Protein 6.4 GM/DL (6.4-8.2) Calcium Level 7.1 MG/DL (8.5-10.1) Sodium Level 147 MEQ/L (136-145) Potassium Level 4.0 MEQ/L (3.5-5.1) Chloride Level 115 MEQ/L (98-107) Carbon Dioxide Level 23.2 MEQ/L (21.0-32.0) Anion Gap 9 MEQ/L (5-15) Estimat Glomerular Filtration Rate 21 ML/MIN (>89) Protein Corrected Calcium 7.5 MG/DL (8.5-10.1) Lactic Acid Level 0.7 mmol/L (0.4-2.0) (Rosalinda Vaughan) Result Diagram: 12/01/17 0952 12/01/17 0952 Microbiology Microbiology Date/Time Source Procedure Growth Status 11/30/17 16:45 Blood Peripheral Aerobic Blood Culture - Preliminary NO GROWTH IN 1 DAY Resulted 11/30/17 16:45 Blood Peripheral Anaerobic Blood Culture - Preliminary NO GROWTH IN 1 DAY Resulted 11/30/17 16:40 Blood Peripheral Aerobic Blood Culture - Preliminary NO GROWTH IN 1 DAY Resulted 11/30/17 16:40 Blood Peripheral Anaerobic Blood Culture - Preliminary NO GROWTH IN 1 DAY Resulted Imaging Last Impressions Head CT 11/30/17 0000 Signed Impressions: Service Date/Time: Thursday, November 30, 2017 12:15 - CONCLUSION: Negative noncontrast head CT. Ousmane Aguilar MD Chest X-Ray 11/30/17 0000 Signed Impressions: Service Date/Time: Thursday, November 30, 2017 17:02 - CONCLUSION: Bibasilar increased density characteristic of underlying air space disease and bilateral effusions. Otherwise stable chest status post extubation. COPD. Fernando Shaver MD Abdomen X-Ray 11/23/17 0000 Signed Impressions: Service Date/Time: Thursday, November 23, 2017 06:14 - CONCLUSION: Nonobstructive bowel gas pattern without significant change. Ousmane Aguilar MD Brain MRI 3/22/18 1409 Signed Impressions: Service Date/Time: October 20:54 - CONCLUSION: 1. No acute intracranial abnormality. Right-sided mastoid air cell disease. No recent infarct, mass effect or shift. Roby Brito MD Lower Extremity Ultrasound 11/20/17 0000 Signed Impressions: Service Date/Time: October 11:48 - CONCLUSION: 1. No evidence of DVT. 2. Small right Stovall's cyst. Keven Lake MD Chest CT 11/19/17 0000 Signed Impressions: Service Date/Time: Sunday, November 19, 2017 17:10 - CONCLUSION: Minimal consolidative changes as above Small pleural effusions. Luis A Castillo MD FACR Abdomen/Pelvis CT 11/19/17 0000 Signed Impressions: Service Date/Time: Sunday, November 19, 2017 17:10 - CONCLUSION: Trace ascites or subcapsular fluid around liver Prominent gallbladder Luis A Castillo MD FACR Abdomen Ultrasound 11/17/17 0000 Signed Impressions: Service Date/Time: Friday, November 17, 2017 08:01 - CONCLUSION: Negative for occlusion or significant stenosis. Luis A Castillo MD FACR . (Rosalinda Vaughan) Patient/Family Conference Present at Family Conference: Spoke with spouse Kenn at bedside. He called daughterLudy via phone to discuss CODE status. . Family Conference Time (mins): 40 Family Conference Location: Bedside Issues Discussed: * Palliative care role, purpose, approach * Additional medical, psychosocial, and spiritual history * Patients general health, functional status, and cognitive changes in the months leading up to the current hospitalization * Patient/family understanding of the current medical problems * Patients goals of care as best understood from advance directives and/or conversations and/or values * Palliative care contact information provided . (Rosalinda Vaughan) Assessment and Plan Disease Oriented Problem List: (1) Idiopathic thrombocytopenia purpura (2) Hypertension (3) Chronic back pain (4) Chronic anemia (5) Acute and chronic respiratory failure with hypoxia Symptom Scale: (1) Shortness of breath 0-10 Scale: Unable to quantify (2) Abdominal pain 0-10 Scale: Unable to quantify (3) Anxiety 0-10 Scale: Unable to quantify Pertinent Non-Medical Issues Psychosocial: . Spiritual: [employer]alian angela. Legal: According to [place] statute, healthcare proxy decision making falls the patient's spouse. Ethical issues impacting care: No known concerns at this time. Important Contacts * Desi "Kenn" Anthony, spouse: [phone] . Prognosis Mrs. 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 Patient continues to decline despite ongoing aggressive measures since admission 11/16/17. Overall prognosis is poor. . Code Status: Full Code Plan * Patient is not capacitated to make her own healthcare decisions given clinical condition, unlikely she will regain capacity. Copies requested. Spouse indicates that he is designated healthcare surrogate. According to [place] statute, healthcare proxy decision making falls the patient's spouse. * NO CODE (DNR/DNI) - spouse indicates patient reported she did not want to be intubated or resuscitated if only serving to artificially prolong the process of dying. Wants to be allowed to peacefully and naturally. * Spouse, "Kenn" (HCP) desires continued aggressive care short of NO CODE (DNR/ DNI) until the children arrive. Family meeting arranged likely 12/02/17 after son and daughter arrive from [place], time to be determined. Spouse will call when he knows family's anticipated arrival time. * SYMPTOMS: Dyspnea: Oxygen dependent COPD, on intermittent BiPAP. Anxiety: Secondary to dyspnea. Pain: Sources include no history of chronic back pain, likely ischemic colitis, debility and prolonged hospitalization. Has as needed hydrocodone, hydromorphone available. Has had 2 doses of as needed hydromorphone in the past 24 hours. Will monitor need and effect. Might consider addition of low dose Lorazepam for anxiety/ comfort if needed. * Palliative care number provided. * Palliative care will continue to follow to assist with symptom management further clarification of treatment goals. . (Rosalinda Vaughan) Thank you for the opportunity to participate in the care of Ms. Cruz. (Rosalinda Vaughan) Attestation To help prompt me to consider important information that might be impacting today's encounter and assessment, information from prior notes written by myself or my colleagues may have been "brought forward" into today's note. My signature on this note, however, is an attestation that I personally performed the exam, history, and/or decision-making noted today, and, unless otherwise indicated, the interactions with patient, family, and staff as well as the review of records all occurred today. I also attest that the listed assessment and stated plan reflect my best clinical judgment today based on the combination of historical information, prior notes, and today's exam/ interactions. When time spent is documented, it refers only to time spent today by the signer, or if indicated, combined time spent today by collaborating physician/nurse practitioner. (Rosalinda Vaughan) Collaborating MD Comments Chart reviewed. Case discussed with palliative care JUTE BAG CUTTING MACHINE OPERATOR. Above JUTE BAG CUTTING MACHINE OPERATOR note reviewed and I concur. . (Alexsander Messer MD) Rosalinda Vaughan Dec 01, 2017 17:30 Alexsander Messer MD Dec 08, 2017 05:34
[2017-12-01] MEDS ORDERED: FUROSEMIDE 40 MG/4 ML VIAL IV PUSH SCH (18:00)
[2017-12-01] MEDS: FLUCONAZOLE 200 MG PREMIX BAG 100 ML IV SCH (18:50)
--- NOTE | 2017-12-01 19:29 | HHI.CCPN ---
Subjective Remarks/Hospital Course This is a 67-year-old female that presented to [facility], by private transportation for evaluation of severe abdominal pain. Patient states of the past week she has had constipation so last evening took laxatives ( Senokot) x 3 days, and then today had large bowel movement multiple times with development of severe lower abdominal pain. Patient had subsequently noted some abdominal distention. Patient states her abdomen is exquisitely tender with any movement. Patient also complains of some epigastric pain. 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 No report of hematemesis or coffee-ground emesis. Patient states after bowel movements no report of melena or hematochezia. Patient rates her abdominal pain 10/10 in intensity, without relief of narcotics. The patient was transferred to [facility] , critical care medicine was consulted. Subjective: 11/18: Overnight the patient was known to be oliguric, the patient received approximately 5 L of normal saline , and 500 cc of 5% albumin during the night. NG tube output approximately 700 cc since admission. The patient was noted to be mildly confused this a.m. and progressively worsened. O2 saturation was 100% ,stat ABGs performed, metabolic acidosis with a bicarbonate level of 16. Patient received 2 A of sodium bicarbonate and bicarbonate infusion was initiated. Patient also was noted to be hypocalcemic this a.m. and received 2 g of calcium gluconate. The patient was started on Argatroban infusion after discussion with Dr. Howell, plan for endoscopy tomorrow . The patient was previously on Xarelto for DVT prophylaxis.Repeat labs performed early this afternoon revealed hemoglobin of 6.7, 1 unit of PRBC being transfused. She required restraints, for patient safety. Repeat labs pending this evening posttransfusion. 11/19: Afebrile. Last evening the patient became more confused metabolic acidosis, placed on sodium bicarbonate infusion, now corrected. Patient alert, following commands. Sodium bicarbonate infusion discontinued. Patient noted to be severely anemic with hemoglobin of 6.2 received 1 unit of PRBCs, last hemoglobin 9.4, stable. Continued serial monitoring of H&H labs pending this a.m.. Patient noted to have improvement in urine output overnight. EGD placed on hold. 11/20 No events overnight. Afebrile, on 3L oxygen. 11/21 Patient is on 2L oxygen. MRI brain last night showed no acute abnormalities. Afebrile. Lethargic 11/22 Patient is on 3L oxygen. Renal function is improving with Cr: 1.47 from 1.77. On Argatroban drip. 11/23 No events overnight, On Argatroban drip. Cr: 1.16 from 1.47. 11/24 Patient is more awake, off Argatroban drip, T:100.3. 1u PRBC ordered for Hgb 6.7 this morning. 11/25 Patient is on 50% VM with good sats. Afebrile. 11/26: Remains orally intubated on mechanical ventilation, awaiting colonoscopy. 11/27: Arousable off sedation, orally intubated on mechanical ventilation. Colonoscopy showed colitis and pseudomembranes yesterday biopsies pending. Stool for C. difficile ordered. 11/28: Extubated yesterday tolerating nasal cannula. Stool for C. difficile negative 12/01: Critical care reconsulted for worsening respiratory status and sigmoidoscopy showing worsening colitis with concern for ischemic colitis. When I evaluated the patient she was on BiPAP with full facemask. She had just finished a sigmoidoscopy earlier which revealed diffuse erythematous mucosa with rectal ulcers with question of ischemia. She has continued to have low platelets requiring platelet transfusions for her ITP. GI has consult general surgery in view of suspected worsening ischemic colitis. Patient is also developing worsening renal function. She is awake and grimaces significantly on examining her belly. Otherwise she is not very oriented to participate in discussion regarding plan of care. Objective Vital Signs Date Time Temp Pulse Resp B/P (MAP) Pulse Ox O2 Delivery O2 Flow Rate FiO2 12/01/17 18:00 103 12/01/17 16:17 100 40 12/01/17 15:17 99.9 23 121/75 12/01/17 09:10 Nasal Cannula 3.00 Intake and Output 12/01/17 12/01/17 12/01/17 07:59 15:59 23:59 Intake Total 100 ml 370 ml Output Total 700 ml 400 ml Balance -700 ml 100 ml -30 ml Result Diagram: 12/01/17 0952 12/01/17 0952 Imaging Last [address] 11/30/17 0000 Signed Impressions: Service Date/Time: Thursday, November 30, 2017 12:15 - CONCLUSION: Negative noncontrast head CT. Ousmane Aguilar MD Chest X-Ray 11/30/17 0000 Signed Impressions: Service Date/Time: Thursday, November 30, 2017 17:02 - CONCLUSION: Bibasilar increased density characteristic of underlying air space disease and bilateral effusions. Otherwise stable chest status post extubation. COPD. Fernando Shaver MD Last Impressions Chest X-Ray 11/23/17 0000 Signed Impressions: Service Date/Time: Thursday, November 23, 2017 10:56 - CONCLUSION: Small right pleural effusion. Scattered bibasilar atelectasis is noted. Swapnil Saldaña MD Abdomen X-Ray 11/23/17 0000 Signed Impressions: Service Date/Time: Thursday, November 23, 2017 06:14 - CONCLUSION: Nonobstructive bowel gas pattern without significant change. Ousmane Aguilar MD Brain MRI 11/20/17 1409 Signed Impressions: Service Date/Time: October 20:54 - CONCLUSION: 1. No acute intracranial abnormality. Right-sided mastoid air cell disease. No recent infarct, mass effect or shift. Roby Brito MD Lower Extremity Ultrasound 11/20/17 0000 Signed Impressions: Service Date/Time: October 11:48 - CONCLUSION: 1. No evidence of DVT. 2. Small right Stovall's cyst. Keven Lake MD Head CT 11/20/17 0000 Signed Impressions: Service Date/Time: October 11:29 - CONCLUSION: 1. Focal decreased attenuation involving the right armin consistent with lacunar infarct or ischemic change. 2. No acute hemorrhage, midline shift or extra-axial fluid collections. 3. Small fluid level within the right sphenoid sinus. Swapnil Saldaña MD Chest CT 11/19/17 0000 Signed Impressions: Service Date/Time: Sunday, November 19, 2017 17:10 - CONCLUSION: Minimal consolidative changes as above Small pleural effusions. Luis A Castillo MD FACR Abdomen/Pelvis CT 11/19/17 0000 Signed Impressions: Service Date/Time: Sunday, November 19, 2017 17:10 - CONCLUSION: Trace ascites or subcapsular fluid around liver Prominent gallbladder Luis A Castillo MD FACR Abdomen Ultrasound 11/17/17 0000 Signed Impressions: Service Date/Time: Friday, November 17, 2017 08:01 - CONCLUSION: Negative for occlusion or significant stenosis. Luis A Castillo MD FACR Procedures EGD/ colonoscopy. Objective Remarks GENERAL: This is a pale thin female lying in bed on BiPAP with full facemask SKIN: Warm and dry. Pale HEAD: Atraumatic. Normocephalic. EYES: Pupils equal and round. No scleral icterus. No injection or drainage. ENT: No nasal bleeding or discharge. Mucous membranes pink and moist. NECK: Trachea midline. No JVD. CARDIOVASCULAR: Tachycardic S1-S2 irregularly irregular RESPIRATORY: Air entry decreased bilaterally at bases, clear to auscultation. GASTROINTESTINAL: Abdomen soft, diffuse tenderness with guarding. Bowel sounds present MUSCULOSKELETAL: Extremities Warm bilaterally, bilateral edema NEUROLOGICAL: Drowsy, easily arousable, follows occasional commands though disoriented. Grossly nonfocal A/P Problem List: (1) Chronic anemia ICD Code: D64.9 - Anemia, unspecified Status: Acute (2) Idiopathic thrombocytopenia purpura ICD Code: D69.3 - Immune thrombocytopenic purpura Status: Acute (3) COPD (chronic obstructive pulmonary disease) ICD Code: J44.9 - Chronic obstructive pulmonary disease, unspecified Status: Acute (4) NISHANT (acute kidney injury) ICD Code: N17.9 - Acute kidney failure, unspecified Status: Acute (5) Chronic back pain ICD Code: M54.9 - Dorsalgia, unspecified; G89.29 - Other chronic pain Status: Acute (6) Hypertension ICD Code: I10 - Essential (primary) hypertension Status: Acute (7) Acute and chronic respiratory failure with hypoxia ICD Code: J96.21 - Acute and chronic respiratory failure with hypoxia Status: Acute (8) Abdominal pain ICD Code: R10.9 - Unspecified abdominal pain Status: Resolved (9) Metabolic acidemia ICD Code: E87.2 - Acidosis Status: Acute Assessment and Plan Assessment Plan Plan by systems: Neurologic: Chronic back pain 2/2 impression fractures Neurochecks per ICU protocol MRI brain 11/21 no acute abnormalities 11/20 EEG: bihemispheric slowing. There are some intermixed slow sharp waves, but no distinct paroxysmal discharges. The pattern suggests severe bilateral abnormalities, either metabolic or structural Neuro is following- Dr. Hyman Dilaudid 0.5 mg every 4 hours when necessary for breakthrough pain scale 7-10 Tylenol 650 mg every 6 hours when necessary for pain or temperature greater than 100.5 Patient on home dose [place] for pain control, resume following extubation if required. Respiratory: COPD Asthma Home O2 dependency Acute respiratory failure Extubated on 11/27, currently back on BiPAP home O2 dependency Continue DuoNeb, Spiriva and budesonide- home medications Aspiration precautions Cardiovascular: Hypertension Sinus tachycardia Appears to be going in and out of A. fib. On Cardizem 60mg Q6, Lopressor 50mg Q12. Keep MAP>65mmHg. Renal: NISHANT Monitor renal function, I/O's, electrolytes replacement as needed. Was receiving IV fluids. Nephrology consulted in view of worsening renal function and plan to diurese patient though this may worsen her colitis. FEN/GI: GI bleed Suspected ischemic colitis Elevated LFT's s/p EGD 11/25 showed erosive gastritis. Colonoscopy done on 11/26 revealed colitis with possible pseudomembranes, biopsy sent. Stool for C. difficile negative. On PPN/Iipids-plan to titrate off, advance by mouth intake which is okay with GI , GI and surgery are following KUB abdomen 11/23: Non obstructive bowel gas pattern CT abd/pelvis: Trace ascites or subcapsular fluid around liver Prominent gallbladder US abdomen: Negative for occlusion or significant stenosis. rectal tube in place KUB 11/21 showed no obstruction. Sigmoidoscopy done on 12/01 showed diffuse erythematous mucosa with rectal ulcers with question of worsening colitis On Rifaximin, Lactulose - monitor ammonia level ( 29) ID: Funguria Pseudomembranes on colonoscopy with colitis Continue abx per ID monitor for signs of infections ( Fever, WBC). Stool for C. difficile negative BC 11/16:NGTD, pancultured 11/23 ID is following. Discussed with Dr. Angulo. She is broadening antibiotic coverage to IV Zosyn in view of suspected ischemic colitis on sigmoidoscopy. Awaiting CT abdomen pelvis. Gen. surgery consulted for further evaluation Heme History of DVT 09/2017 Chronic ITP Hematology following-Dr. Luong. s/p transfusion1 u PRBC 11/24 receiving platelet transfusions per hematology 11/17, 11/18 Transfused 1u PRBC Platelet count normally 40-70,000 Patient had left popliteal embolectomy 09/2017, Dr. Mixon and was placed on Pradaxa, patient under the care of coating and embossing unit operator Dr. Reyna. 11/18 Patient takes Xarelto 20mg/d, Argatroban held per Heme Doppler US LE negative for DVT Endocrine: Hyperglycemia of critical illness Glucose monitoring per ICU [id number] regimen -- SSI Prophylaxis: GI Prophylaxis Famotidine BID DVT Prophylaxis -- SCDs Patient's home med include Xarelto. Argatroban stopped per Heme Lines: Peripheral IVs 2. d/w patient's at bedside. Discussed with Dr. Gonzalez, discussed with palliative care Caryl Mera, discussed with Vira Neil, discussed with [facility] Prognosis appears extremely poor. Consulted palliative care to assist with deciding goals of therapy. Following discussions with palliative care, patient' s has decided to make her DNR/DNI status. He wishes to continue other aggressive care short of CPR and intubation at this time. Condition critical. Time spent on critical care excluding procedures 40 minutes Problem Qualifiers (1) Abdominal pain: Qualified Codes: R10.84 - Generalized abdominal pain Gurmeet Marte MD Dec 01, 2017 19:29
--- NOTE | 2017-12-01 20:20 | RADRPT ---
EXAM DATE/TIME: 12/01/2017 19:48 [facility] COMPARISON: No previous studies available for comparison. INDICATIONS : Respiratory distress. MEDICAL HISTORY : Hypertension. Chronic obstructive pulmonary disease. SURGICAL HISTORY : section. ENCOUNTER: Initial ACUITY: 1 day PAIN SCORE: Non-responsive. LOCATION: Bilateral chest FINDINGS: A single view of the chest demonstrates basilar airspace disease and pleural effusions. Heart size mi ldly enlarged. No pneumothorax. CONCLUSION: 1. Basilar airspace disease and pleural effusions similar to November 30. Roby Brito MD on December 01, 2017 at 20:16 Board Certified Radiologist. This report was verified electronically.
[2017-12-01] MEDS: RESP: ALBUTEROL 2.5 MG/3 ML NEB (PRN) NEB (21:45)
[2017-12-01 22:43] LABS: AMORPHOUS SEDIMENT, URINE RARE; BACTERIA, URINE RARE /hpf; BILIRUBIN, URINE NEG (NEG); BLOOD, URINE SMALL (NEG); GLUCOSE,URINE NEG (NEG); KETONE, URINE NEG (NEG); NITRITE,URINE NEG (NEG); PH, URINE 5.5 (5.0-8.5); URINE COLOR LIGHT-YELLOW (YELLW/STRAW); URINE LEUKOCYTE ESTERASE NEG (NEG)
--- NOTE | 2017-12-01 23:39 | RADRPT ---
EXAM DATE/TIME: 12/01/2017 21:49 [facility] COMPARISON: No previous studies available for comparison. INDICATIONS : Increased BUN/Creatinine. MEDICAL HISTORY : Chronic obstructive pulmonary disease. Hypertension. Tinnitus. Anxiety. Back pain. ITP. Anemia. Luciana sles. Blood transfusion. SURGICAL HISTORY : Tonsillectomy. section. Tubal ligation. Bilateral cataract removal. Right lens implant. Sple nectomy. Right hip replacement. ENCOUNTER: Initial ACUITY: 1 day PAIN SCORE: 5/10 LOCATION: Bilateral flank MEASUREMENTS: RIGHT KIDNEY: 12.6 x 6.5 x 5.9 cm LEFT KIDNEY: 10.3 x 6.0 x 5.3 cm FINDINGS: RIGHT KIDNEY: Renal cortex is normal in thickness and echotexture. No hydronephrosis, stone, or mass. LEFT KIDNEY: Renal cortex is normal in thickness and echotexture. No hydronephrosis, stone, or mass. BLADDER: Decompressed with [place] catheter CONCLUSION: Normal examination. Anuel Suazo MD on December 01, 2017 at 23:36 Board Certified Radiologist. This report was verified electronically.
[2017-12-02] VITALS (27 sets, daily range): BP systolic 106–247; BP diastolic 66–188; PULSE 98–158; RESP 14–34; TEMP 98.6–100.7; O2SAT 93–100
[2017-12-02] MEDS: HYDROmorphone HCL PF 2 MG/ML VIAL IV PRN ×6 (01:11→21:37)
[2017-12-02] MEDS: CHLORHEXIDINE GLUCONATE 2 % 1 PACK (2 CLOTHS) TOP SCH (04:57)
[2017-12-02] MEDS: PIPERACIL-TAZO 3.375 GM PREMIX 50 ML IV SCH ×2 (04:57→09:26)
[2017-12-02] MEDS: DILTIAZEM HCL 60 MG TAB PO SCH ×4 (05:00→23:34)
[2017-12-02 05:07] LABS: AUTOMATED NEUTROPHIL # 4.1 TH/MM3 (1.8-7.7); BASOPHIL % 0.3 % (0.0-2.0); EOSINOPHIL # 0.1 TH/MM3 (0-0.4); EOSINOPHIL % 0.8 % (0.0-4.0); HEMATOCRIT 28.4 % (35.0-46.0); HEMOGLOBIN 9.4 GM/DL (11.6-15.3); LYMPH % 21.7 % (9.0-44.0); LYMPHOCYTE # 1.3 TH/MM3 (1.0-4.8); MEAN CELL VOLUME 100.1 FL (80.0-100.0); MEAN CORPUSCULAR HEMOGLOBIN 33.3 PG (27.0-34.0); MEAN CORPUSCULAR HGB CONC 33.2 % (32.0-36.0); MEAN PLATELET VOLUME 9.5 FL (7.0-11.0); MONO % 10.4 % (0.0-8.0); MONOCYTE # 0.6 TH/MM3 (0-0.9); NEUT % 66.8 % (16.0-70.0); RED BLOOD COUNT 2.84 MIL/MM3 (4.00-5.30); WHITE BLOOD COUNT 6.1 TH/MM3 (4.0-11.0)
[2017-12-02 05:14] LABS: PLATELET COUNT 17 TH/MM3 (150-450)
[2017-12-02 05:37] LABS: ALBUMIN 1.8 GM/DL (3.4-5.0); BICARBONATE 23.5 MEQ/L (21.0-32.0); CALCIUM 6.9 MG/DL (8.5-10.1); CALCIUM-PROTEIN CORRECTED 7.5 MG/DL (8.5-10.1); CREATININE 2.73 MG/DL (0.50-1.00); TOTAL BILIRUBIN ADULT 0.4 MG/DL (0.2-1.0)
--- NOTE | 2017-12-02 07:17 | HHI.CCPN ---
Subjective Remarks/Hospital Course This is a 67-year-old female that presented to [facility], by private transportation for evaluation of severe abdominal pain. Patient states of the past week she has had constipation so last evening took laxatives ( Senokot) x 3 days, and then today had large bowel movement multiple times with development of severe lower abdominal pain. Patient had subsequently noted some abdominal distention. Patient states her abdomen is exquisitely tender with any movement. Patient also complains of some epigastric pain. 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 No report of hematemesis or coffee-ground emesis. Patient states after bowel movements no report of melena or hematochezia. Patient rates her abdominal pain 10/10 in intensity, without relief of narcotics. The patient was transferred to [facility] , critical care medicine was consulted. Subjective: 11/18: Overnight the patient was known to be oliguric, the patient received approximately 5 L of normal saline , and 500 cc of 5% albumin during the night. NG tube output approximately 700 cc since admission. The patient was noted to be mildly confused this a.m. and progressively worsened. O2 saturation was 100% ,stat ABGs performed, metabolic acidosis with a bicarbonate level of 16. Patient received 2 A of sodium bicarbonate and bicarbonate infusion was initiated. Patient also was noted to be hypocalcemic this a.m. and received 2 g of calcium gluconate. The patient was started on Argatroban infusion after discussion with Dr. Howell, plan for endoscopy tomorrow . The patient was previously on Xarelto for DVT prophylaxis.Repeat labs performed early this afternoon revealed hemoglobin of 6.7, 1 unit of PRBC being transfused. She required restraints, for patient safety. Repeat labs pending this evening posttransfusion. 11/19: Afebrile. Last evening the patient became more confused metabolic acidosis, placed on sodium bicarbonate infusion, now corrected. Patient alert, following commands. Sodium bicarbonate infusion discontinued. Patient noted to be severely anemic with hemoglobin of 6.2 received 1 unit of PRBCs, last hemoglobin 9.4, stable. Continued serial monitoring of H&H labs pending this a.m.. Patient noted to have improvement in urine output overnight. EGD placed on hold. 11/20 No events overnight. Afebrile, on 3L oxygen. 11/21 Patient is on 2L oxygen. MRI brain last night showed no acute abnormalities. Afebrile. Lethargic 11/22 Patient is on 3L oxygen. Renal function is improving with Cr: 1.47 from 1.77. On Argatroban drip. 11/23 No events overnight, On Argatroban drip. Cr: 1.16 from 1.47. 11/24 Patient is more awake, off Argatroban drip, T:100.3. 1u PRBC ordered for Hgb 6.7 this morning. 11/25 Patient is on 50% VM with good sats. Afebrile. 11/26: Remains orally intubated on mechanical ventilation, awaiting colonoscopy. 11/27: Arousable off sedation, orally intubated on mechanical ventilation. Colonoscopy showed colitis and pseudomembranes yesterday biopsies pending. Stool for C. difficile ordered. 11/28: Extubated yesterday tolerating nasal cannula. Stool for C. difficile negative 12/01: Critical care reconsulted for worsening respiratory status and sigmoidoscopy showing worsening colitis with concern for ischemic colitis. When I evaluated the patient she was on BiPAP with full facemask. She had just finished a sigmoidoscopy earlier which revealed diffuse erythematous mucosa with rectal ulcers with question of ischemia. She has continued to have low platelets requiring platelet transfusions for her ITP. GI has consult general surgery in view of suspected worsening ischemic colitis. Patient is also developing worsening renal function. She is awake and grimaces significantly on examining her belly. Otherwise she is not very oriented to participate in discussion regarding plan of care. 12/02: T-max 99.7. The patient remains encephalopathic. The patient remained on BiPAP throughout the night without any difficulties will wean back to nasal cannula. Platelet count continues to decrease from 22-> 17, despite being transfused platelets yesterday. Concern for protection of airway with meals patient will be started on PPN. Plan for angiogram this a.m.. The patient continues to have increasing creatinine and decreasing urinary outputin the last 24 hours. Family meeting scheduled with palliative care team tentatively today. Objective Vital Signs Date Time Temp Pulse Resp B/P (MAP) Pulse Ox O2 Delivery O2 Flow Rate FiO2 12/02/17 06:18 18 12/02/17 06:00 104 12/02/17 04:00 98.9 106/77 (87) 100 12/02/17 03:34 40 12/01/17 09:10 Nasal Cannula 3.00 Intake and Output 12/02/17 12/02/17 12/03/17 08:00 16:00 00:00 Intake Total 50 ml Output Total 500 ml Balance -450 ml Result Diagram: 12/02/17 0435 12/02/17 0435 Imaging Last Impressions Renal Ultrasound 12/01/17 0000 Signed Impressions: Service Date/Time: Friday, December 01, 2017 21:49 - CONCLUSION: Normal examination. Anuel Suazo MD Chest X-Ray 12/01/17 0000 Signed Impressions: Service Date/Time: Friday, December 01, 2017 19:48 - CONCLUSION: 1. Basilar airspace disease and pleural effusions similar to November 30. Roby Brito MD Head CT 11/30/17 0000 Signed Impressions: Service Date/Time: Thursday, November 30, 2017 12:15 - CONCLUSION: Negative noncontrast head CT. Ousmane Aguilar MD Abdomen X-Ray 11/23/17 0000 Signed Impressions: Service Date/Time: Thursday, November 23, 2017 06:14 - CONCLUSION: Nonobstructive bowel gas pattern without significant change. Ousmane Aguilar MD Brain MRI 11/20/17 1409 Signed Impressions: Service Date/Time: October 20:54 - CONCLUSION: 1. No acute intracranial abnormality. Right-sided mastoid air cell disease. No recent infarct, mass effect or shift. Roby Brito MD Lower Extremity Ultrasound 11/20/17 0000 Signed Impressions: Service Date/Time: October 11:48 - CONCLUSION: 1. No evidence of DVT. 2. Small right Stovall's cyst. Keven Lake MD Chest CT 11/19/17 0000 Signed Impressions: Service Date/Time: Sunday, November 19, 2017 17:10 - CONCLUSION: Minimal consolidative changes as above Small pleural effusions. Luis A Castillo MD FACR Abdomen/Pelvis CT 11/19/17 0000 Signed Impressions: Service Date/Time: Sunday, November 19, 2017 17:10 - CONCLUSION: Trace ascites or subcapsular fluid around liver Prominent gallbladder Luis A Castillo MD FACR Abdomen Ultrasound 11/17/17 0000 Signed Impressions: Service Date/Time: Friday, November 17, 2017 08:01 - CONCLUSION: Negative for occlusion or significant stenosis. Luis A Castillo MD FACR Last [address] 11/30/17 0000 Signed Impressions: Service Date/Time: Thursday, November 30, 2017 12:15 - CONCLUSION: Negative noncontrast head CT. Ousmane Aguilar MD Chest X-Ray 11/30/17 0000 Signed Impressions: Service Date/Time: Thursday, November 30, 2017 17:02 - CONCLUSION: Bibasilar increased density characteristic of underlying air space disease and bilateral effusions. Otherwise stable chest status post extubation. COPD. Fernando Shaver MD Last Impressions Chest X-Ray 11/23/17 0000 Signed Impressions: Service Date/Time: Thursday, November 23, 2017 10:56 - CONCLUSION: Small right pleural effusion. Scattered bibasilar atelectasis is noted. Swapnil Saldaña MD Abdomen X-Ray 11/23/17 0000 Signed Impressions: Service Date/Time: Thursday, November 23, 2017 06:14 - CONCLUSION: Nonobstructive bowel gas pattern without significant change. Ousmane Aguilar MD Brain MRI 11/20/17 1409 Signed Impressions: Service Date/Time: October 20:54 - CONCLUSION: 1. No acute intracranial abnormality. Right-sided mastoid air cell disease. No recent infarct, mass effect or shift. Roby Brito MD Lower Extremity Ultrasound 11/20/17 0000 Signed Impressions: Service Date/Time: October 11:48 - CONCLUSION: 1. No evidence of DVT. 2. Small right Stovall's cyst. Keven aLke MD Head CT 11/20/17 0000 Signed Impressions: Service Date/Time: October 11:29 - CONCLUSION: 1. Focal decreased attenuation involving the right armin consistent with lacunar infarct or ischemic change. 2. No acute hemorrhage, midline shift or extra-axial fluid collections. 3. Small fluid level within the right sphenoid sinus. Swapnil Saldaña MD Chest CT 11/19/17 0000 Signed Impressions: Service Date/Time: Sunday, November 19, 2017 17:10 - CONCLUSION: Minimal consolidative changes as above Small pleural effusions. Luis A Castillo MD FACR Abdomen/Pelvis CT 11/19/17 0000 Signed Impressions: Service Date/Time: Sunday, November 19, 2017 17:10 - CONCLUSION: Trace ascites or subcapsular fluid around liver Prominent gallbladder Luis A Castillo MD FACR Abdomen Ultrasound 11/17/17 0000 Signed Impressions: Service Date/Time: Friday, November 17, 2017 08:01 - CONCLUSION: Negative for occlusion or significant stenosis. Luis A Castillo MD FACR Procedures EGD/ colonoscopy. 12/01 Flex Sigmoidoscopy Objective Remarks GENERAL: This is a pale thin female lying in bed on BiPAP with full facemask SKIN: Warm and dry. Pale HEAD: Atraumatic. Normocephalic. EYES: Pupils equal and round. No scleral icterus. No injection or drainage. ENT: No nasal bleeding or discharge. Mucous membranes pink and moist. NECK: Trachea midline. No JVD. CARDIOVASCULAR: Tachycardic S1-S2 irregularly irregular RESPIRATORY: Air entry decreased bilaterally at bases, clear to auscultation. GASTROINTESTINAL: Abdomen soft, diffuse tenderness with guarding. Bowel sounds present MUSCULOSKELETAL: Extremities Warm bilaterally, bilateral 3+ peripheral edema NEUROLOGICAL: Drowsy, easily arousable, follows occasional commands though disoriented. Grossly nonfocal Urinary Catheter: Yes Valencia insert reason: Measure Accurate Output Date of Insertion: Dec 01, 2017 A/P Problem List: (1) Chronic anemia ICD Code: D64.9 - Anemia, unspecified Status: Acute (2) Idiopathic thrombocytopenia purpura ICD Code: D69.3 - Immune thrombocytopenic purpura Status: Acute (3) COPD (chronic obstructive pulmonary disease) ICD Code: J44.9 - Chronic obstructive pulmonary disease, unspecified Status: Acute (4) NISHANT (acute kidney injury) ICD Code: N17.9 - Acute kidney failure, unspecified Status: Acute (5) Chronic back pain ICD Code: M54.9 - Dorsalgia, unspecified; G89.29 - Other chronic pain Status: Acute (6) Hypertension ICD Code: I10 - Essential (primary) hypertension Status: Acute (7) Acute and chronic respiratory failure with hypoxia ICD Code: J96.21 - Acute and chronic respiratory failure with hypoxia Status: Acute (8) Abdominal pain ICD Code: R10.9 - Unspecified abdominal pain Status: Resolved (9) Metabolic acidemia ICD Code: E87.2 - Acidosis Status: Acute (10) Altered mental status, unspecified ICD Code: R41.82 - Altered mental status, unspecified Assessment and Plan Neurologic: Chronic back pain 2/2 compression fractures Altered mental status Neurochecks per ICU protocol MRI brain 11/21 no acute abnormalities 11/20 EEG: bihemispheric slowing. There are some intermixed slow sharp waves, but no distinct paroxysmal discharges. The pattern suggests severe bilateral abnormalities, either metabolic or structural Neuro is following- Dr. Hyman Dilaudid 0.5 mg every 4 hours when necessary for breakthrough pain scale 7-10 Tylenol 650 mg every 6 hours when necessary for pain or temperature greater than 100.5 Patient on home dose Jamul for pain control, resume following extubation if required. Obtain ammonia level Respiratory: COPD Asthma Home O2 dependency Acute respiratory failure Extubated on 11/27, currently back on BiPAP Home O2 dependency- 3LPM Continue DuoNeb, Spiriva and budesonide- home medications Aspiration precautions Cardiovascular: Hypertension Sinus tachycardia Paroxysmal A. fib. On Cardizem 60mg Q6, Lopressor 50mg Q12. Keep MAP>65mmHg. Telemetry -predominantly ST (100-105) Renal: NISHANT Monitor renal function, I/O's, electrolytes replacement as needed. Was receiving IV fluids. Nephrology following -creatinine 2.3->2.7 today, UOP decreased 900cc/24 hours FEN/GI: GI bleed Suspected ischemic colitis Elevated LFT's s/p EGD 11/25 showed erosive gastritis. Colonoscopy done on 11/26 revealed colitis with possible pseudomembranes, biopsy sent. Stool for C. difficile negative. On PPN/Iipids-plan to titrate off, advance by mouth intake which is okay with GI , GI and surgery are following KUB abdomen 11/23: Non obstructive bowel gas pattern CT abd/pelvis: Trace ascites or subcapsular fluid around liver Prominent gallbladder US abdomen: Negative for occlusion or significant stenosis. rectal tube in place KUB 11/21 showed no obstruction. Sigmoidoscopy done on 12/01 showed diffuse erythematous mucosa with rectal ulcers with question of worsening colitis On Rifaximin, Lactulose - monitor ammonia level ( 29) Will obtain formal speech consult for evaluation diet, after assessment for ischemic colitis. The patient remains n.p.o. at this time ID: Funguria Pseudomembranes on colonoscopy with colitis Continue abx per ID monitor for signs of infections ( Fever, WBC). Stool for C. difficile negative BC 11/16:NGTD, pancultured 11/23 ID is following. Discussed with Dr. Angulo. She is broadening antibiotic coverage to IV Zosyn in view of suspected ischemic colitis on sigmoidoscopy. Gen. surgery consulted for further evaluation Heme History of DVT 09/2017 Chronic ITP Thrombocytopenia Hematology following-Dr. Luong. s/p transfusion1 u PRBC 11/24 receiving platelet transfusions per hematology 11/17, 11/18 Transfused 1u PRBC Platelet count normally 40-70,000- Transfused 12/01 and 12/02 12/02 Plt count 22->17,000 today despite transfusion Patient had left popliteal embolectomy 09/2017, Dr. Mixon and was placed on Pradaxa, patient under the care of imaging assistant Dr. Reyna. 11/18 Patient takes Xarelto 20mg/d, Argatroban held per Heme 11/28 Doppler US LE negative for DVT Endocrine: Hyperglycemia of critical illness Glucose monitoring per ICU [id number] regimen -- SSI Prophylaxis: GI Prophylaxis Famotidine BID DVT Prophylaxis -- SCDs Patient's home med include Xarelto. Argatroban stopped per Heme on 11/28 Lines: Peripheral IVs 2. Prognosis appears extremely poor. 12/01 Following discussions with palliative care, patient's has decided to make her DNR/DNI status. He wishes to continue aggressive measures Condition critical. Time spent on critical care excluding procedures 30 minutes Physician Glenis Flores Problem Qualifiers (1) Abdominal pain: Qualified Codes: R10.84 - Generalized abdominal pain Glenis Flores MD Dec 02, 2017 07:17
[2017-12-02] MEDS: INSULIN ASPART SUPPLEMENTAL SCALE SQ SCH ×4 (08:00→21:00)
[2017-12-02 08:11] LABS: BANDS 37 % (0-6); LYMPHOCYTES 24 % (9-44); METAMYELOCYTES 1 % (0-1); MONOCYTES 10 % (0-8); NEUTROPHIL # MANUAL DIFF 3.9 TH/MM3 (1.8-7.7); POLYS (SEG NEUTROPHILS) 25 % (16-70); PROMYELOCYTES 1 % (0-0)
[2017-12-02 08:13] LABS: DOHLE BODIES PRESENT (NONE SEEN)
[2017-12-02] MEDS ORDERED: SODIUM CHLOR 0.9% 250 ML INJ 250 ML IV ONE (08:30)
--- NOTE | 2017-12-02 08:50 | HHI.PR ---
Subjective Remarks ALERT COMBATIVE ON O2 Objective Vital Signs Date Time Temp Pulse Resp B/P (MAP) Pulse Ox O2 Delivery O2 Flow Rate FiO2 12/02/17 06:18 18 12/02/17 06:00 104 12/02/17 04:00 98.9 107 26 106/77 (87) 100 12/02/17 04:00 107 12/02/17 03:34 100 40 12/02/17 02:00 99 12/02/17 01:05 99 40 12/02/17 00:00 98 12/02/17 00:00 98.7 98 23 145/77 (99) 100 12/01/17 22:00 83 12/01/17 21:42 99 40 12/01/17 20:00 83 12/01/17 20:00 99.1 83 17 123/60 (81) 100 12/01/17 18:00 103 12/01/17 18:00 103 27 99 12/01/17 17:00 107 12/01/17 17:00 111 30 187/103 (131) 100 12/01/17 16:17 100 40 12/01/17 16:00 108 12/01/17 16:00 99.7 107 24 139/88 (105) 100 12/01/17 15:17 99.9 122 23 121/75 99 12/01/17 15:00 126 32 121/75 (90) 98 12/01/17 15:00 120 12/01/17 14:00 131 22 160/121 (134) 99 12/01/17 14:00 125 12/01/17 13:00 118 12/01/17 13:00 123 23 154/91 (112) 100 12/01/17 12:00 99 12/01/17 12:00 99.9 99 26 127/95 (106) 100 12/01/17 11:59 99 40 12/01/17 11:55 102 44 127/91 (103) 98 12/01/17 11:53 94 49 125/92 (103) 98 12/01/17 11:00 93 12/01/17 11:00 98 43 166/85 (112) 98 12/01/17 10:49 93 48 131/70 (90) 96 12/01/17 10:00 98 50 172/131 (145) 95 12/01/17 10:00 96 12/01/17 09:10 Nasal Cannula 3.00 12/01/17 09:00 92 39 169/104 (125) 96 12/01/17 09:00 92 12/01/17 08:49 100 40 12/01/17 08:49 100 BiPAP 40 I/O 12/01/17 12/01/17 12/01/17 12/02/17 12/02/17 12/02/17 07:00 15:00 23:00 07:00 15:00 23:00 Intake Total 50 ml 520 ml 50 ml Output Total 700 ml 400 ml 500 ml Balance -700 ml 50 ml 120 ml -450 ml Intake Oral 0 ml 0 ml IV Total 100 ml 50 ml Platelets 370 ml Blood Product IV Normal Saline Flush 50 ml Other 50 ml Output Urine Total 700 ml 400 ml 500 ml # Bowel Movements 1 0 0 Result Diagram: 12/02/1743412/02/17434 Objective Remarks GENERAL: SKIN: Warm and dry. HEAD: Atraumatic. Normocephalic. EYES: Pupils equal and round. No scleral icterus. No injection or drainage. ENT: No nasal bleeding or discharge. Mucous membranes pink and moist. NECK: Trachea midline. No JVD. CARDIOVASCULAR: Regular rate and rhythm. RESPIRATORY: No accessory muscle use. Clear to auscultation. Breath sounds equal bilaterally. GASTROINTESTINAL: Abdomen soft, non-tender, nondistended. Hepatic and splenic margins not palpable. MUSCULOSKELETAL: Extremities without clubbing, cyanosis, or edema. No obvious deformities. NEUROLOGICAL: Awake and alert. No obvious cranial nerve deficits. Motor grossly within normal limits. Five out of 5 muscle strength in the arms and legs. Normal speech. PSYCHIATRIC: Appropriate mood and affect; insight and judgment normal. Assessment and Plan Assessment and Plan IMPRESSION RESPIRATORY FAILURE COPD METABOLIC ENCEPHALOPATHY "? PNA PLAN O2/BIPAP NEEDED ANTIBX PULM TOILET F/U CXRAY Dereck Harden MD Dec 02, 2017 08:50
[2017-12-02] MEDS: RIFAXIMIN 550 MG TAB PO SCH ×2 (09:00→21:00)
[2017-12-02] MEDS: TIOTROPIUM BROMIDE 18 MCG INH INH SCH (09:00)
[2017-12-02] MEDS: FAMOTIDINE 20 MG TAB PO SCH ×2 (09:00→21:00)
[2017-12-02] MEDS: METOPROLOL TARTRATE 50 MG TAB PO SCH ×2 (09:00→21:00)
--- NOTE | 2017-12-02 09:19 | HHI.NPPN ---
Subjective Renal Failure: Acute Interval History She remains on BiPap. at bedside. Renal function is worse. Worsening thrombocytopenia. (Laura Wood) Review of Systems General General Remarks unable to assess (Laura Wood) Objective Data Data Vital Signs Date Time Temp Pulse Resp B/P (MAP) Pulse Ox O2 Delivery O2 Flow Rate FiO2 12/02/17 06:18 18 12/02/17 06:00 104 12/02/17 04:00 98.9 107 26 106/77 (87) 100 12/02/17 04:00 107 12/02/17 03:34 100 40 12/02/17 02:00 99 12/02/17 01:05 99 40 12/02/17 00:00 98 12/02/17 00:00 98.7 98 23 145/77 (99) 100 12/01/17 22:00 83 12/01/17 21:42 99 40 12/01/17 20:00 83 12/01/17 20:00 99.1 83 17 123/60 (81) 100 12/01/17 18:00 103 12/01/17 18:00 103 27 99 12/01/17 17:00 107 12/01/17 17:00 111 30 187/103 (131) 100 12/01/17 16:17 100 40 12/01/17 16:00 108 12/01/17 16:00 99.7 107 24 139/88 (105) 100 12/01/17 15:17 99.9 122 23 121/75 99 12/01/17 15:00 126 32 121/75 (90) 98 12/01/17 15:00 120 12/01/17 14:00 131 22 160/121 (134) 99 12/01/17 14:00 125 12/01/17 13:00 118 12/01/17 13:00 123 23 154/91 (112) 100 12/01/17 12:00 99 12/01/17 12:00 99.9 99 26 127/95 (106) 100 12/01/17 11:59 99 40 12/01/17 11:55 102 44 127/91 (103) 98 12/01/17 11:53 94 49 125/92 (103) 98 12/01/17 11:00 93 12/01/17 11:00 98 43 166/85 (112) 98 12/01/17 10:49 93 48 131/70 (90) 96 12/01/17 10:00 98 50 172/131 (145) 95 12/01/17 10:00 96 (Laura Wood) -: 12/02/17 0435 12/02/17 0435 Imaging Last 72 hours Impressions Renal Ultrasound 12/01/17 0000 Signed Impressions: Service Date/Time: Friday, December 01, 2017 21:49 - CONCLUSION: Normal examination. Anuel Suazo MD Chest X-Ray 12/01/17 0000 Signed Impressions: Service Date/Time: Friday, December 01, 2017 19:48 - CONCLUSION: 1. Basilar airspace disease and pleural effusions similar to November 30. Roby Brito MD Head CT 11/30/17 0000 Signed Impressions: Service Date/Time: Thursday, November 30, 2017 12:15 - CONCLUSION: Negative noncontrast head CT. Ousmane Aguilar MD Chest X-Ray 11/30/17 0000 Signed Impressions: Service Date/Time: Thursday, November 30, 2017 17:02 - CONCLUSION: Bibasilar increased density characteristic of underlying air space disease and bilateral effusions. Otherwise stable chest status post extubation. COPD. Fernando Shaver MD Tubes & Lines: Valencia (Laura Wood) Physical Exam General Appearance: Well Developed, Obese Appearance Remarks some tremors noted, on BiPap (Laura Wood) Throat Throat Exam: Oral Mucosa [place] & Moist (Laura Wood) Pulmonary Resp Exam: Breath Sounds Equal, No Distress, Diminished Breath Sounds (Laura Wood) Cardiology CV Exam: Normal Sinus Rhythm, Good Perfusion, Tachycardia (Laura Wood) Gastrointestinal/Abdomen GI Exam: Soft, Non-Tender, Bowel Sounds Present, Distended (Laura Wood) Musculoskeletal MS Exam: Joints Intact, Normal Tone, Unable to Ambulate (Laura Wood) Integumentary Skin Exam: Warm, Dry, Intact (Laura Wood) Extremeties Extremities Exam: Pedal Pulses Palpable, Moderate Edema (Laura Wood) Neurologic Neuro Exam: Awake, Moving All Extremities (Laura Wood) Assessment/Plan Discussed Condition With: Patient, Spouse Assessment Summary: NISHANT/Acute Renal Failure Electrolyte Assessment: Hypernatremia Problem List: (1) NISHANT (acute kidney injury) ICD Codes: N17.9 - Acute kidney failure, unspecified Status: Acute Plan: She has normal renal function at baseline NISHANT initially due to prerenal azotemia. Renal function had improved and then has gotten worse since the 26 of November Looking back she was hypotensive on and . Most likely has suffered renal hypoperfusion. Renal US negative She is non oliguric, monitor output Change diuretics to Diuril BID. Repeat labs, monitor urine output. Avoid nephrotoxic agents. She has received vancomycin recently,monitor levels Prognosis is guarded. (2) Abdominal pain ICD Codes: R10.9 - Unspecified abdominal pain Status: Resolved Plan: With ischemic colitis On IV fluconazole and zosyn. GI following Pending family meeting with palliative care to discuss goals. (3) Hypertension ICD Codes: I10 - Essential (primary) hypertension Status: Acute Plan: Continue medications as ordered Noted tachycardia (4) Idiopathic thrombocytopenia purpura ICD Codes: D69.3 - Immune thrombocytopenic purpura Status: Acute Plan: worsening thrombocytopenia Hematology following Platelet transfusion ordered (Laura Wood) Plan patient was seen and examined. Agree with above assessment and plan. Some improvement in urine output but renal function is worse. Poor prognosis. At risk for mortality and complications. (Monty Holt MD) Problem Qualifiers (1) Abdominal pain: Qualified Codes: R10.84 - Generalized abdominal pain Laura Wood Dec 02, 2017 09:19 Monty Hlot MD Dec 02, 2017 10:25
[2017-12-02] MEDS: METOPROLOL TARTRATE 5 MG/5 ML VIAL IV PUSH PRN ×7 (09:25→21:54)
[2017-12-02] MEDS: methylPREDNISolone SOD SUCC 40 MG/1 ML VIAL IV PUSH SCH ×2 (09:26→20:58)
[2017-12-02] MEDS: SODIUM CHLORIDE 0.9% FLUSH 10 ML FLUSH IV FLUSH SCH ×2 (09:26→20:58)
[2017-12-02] MEDS: RESP: BUDESONIDE 0.25 MG/2 ML NEB NEB SCH (09:29)
[2017-12-02] MEDS: RESP: ALBUTEROL 2.5 MG/IPRATROPIUM 0.5 MG NEB (PRN) INH (09:29)
--- NOTE | 2017-12-02 11:03 | HHI.PR ---
cc: Eriberto Box MD Subjective Subjective Notes Resting in bed; confused; alerted mental status at bedside Objective Vitals/I&O Vital Signs Date Time Temp Pulse Resp B/P (MAP) Pulse Ox O2 Delivery O2 Flow Rate FiO2 12/02/17 10:37 99.1 108 28 129/68 93 12/02/17 09:29 Nasal Cannula 3.00 12/02/17 03:34 40 Labs Laboratory Tests Test 12/01/17 13:31 12/01/17 21:15 12/02/17 04:35 Lactic Acid Level 0.7 Urine Color LIGHT-YELLOW Urine Turbidity CLEAR Urine pH 5.5 Urine Specific [place] 1.009 Urine Protein 30 Urine Glucose (UA) NEG Urine Ketones NEG Urine Occult Blood SMALL Urine Nitrite NEG Urine Bilirubin NEG Urine Urobilinogen LESS THAN 2.0 Urine Leukocyte Esterase NEG Urine RBC 3 Urine WBC 2 Urine Amorphous Sediment RARE Urine Bacteria RARE Microscopic Urinalysis Comment CULT NOT INDICATED White Blood Count 6.1 Red Blood Count 2.84 Hemoglobin 9.4 Hematocrit 28.4 Mean Corpuscular Volume 100.1 Mean Corpuscular Hemoglobin 33.3 Mean Corpuscular Hemoglobin Concent 33.2 Red Cell Distribution Width 25.0 Platelet Count 17 Mean Platelet Volume 9.5 Neutrophils (%) (Auto) 66.8 Lymphocytes (%) (Auto) 21.7 Monocytes (%) (Auto) 10.4 Eosinophils (%) (Auto) 0.8 Basophils (%) (Auto) 0.3 Neutrophils # (Auto) 4.1 Lymphocytes # (Auto) 1.3 Monocytes # (Auto) 0.6 Eosinophils # (Auto) 0.1 Basophils # (Auto) 0.0 CBC Comment AUTO DIFF Differential Total Cells Counted 100 Neutrophils % (Manual) 25 Band Neutrophils % 37 Lymphocytes % 24 Monocytes % 10 Eosinophils % 2 Neutrophils # (Manual) 3.9 Metamyelocytes 1 Promyelocytes 1 Differential Comment FINAL DIFF MANUAL Dohle Bodies PRESENT Platelet Estimate RARE Platelet Morphology Comment NORMAL Blood Urea Nitrogen 57 Creatinine 2.73 Random Glucose 91 Total Protein 6.0 Albumin 1.8 Calcium Level 6.9 Alkaline Phosphatase 77 Aspartate Amino Transf (AST/SGOT) 24 Alanine Aminotransferase (ALT/SGPT) 11 Total Bilirubin 0.4 Sodium Level 148 Potassium Level 4.0 Chloride Level 114 Carbon Dioxide Level 23.5 Anion Gap 11 Estimat Glomerular Filtration Rate 17 Protein Corrected Calcium 7.5 Date/Time Source Procedure Growth Status 11/30/17 16:45 Blood Peripheral Aerobic Blood Culture - Preliminary NO GROWTH IN 1 DAY Resulted 11/30/17 16:45 Blood Peripheral Anaerobic Blood Culture - Preliminary NO GROWTH IN 1 DAY Resulted 11/18/17 14:25 Stool Stool Stool Occult Blood (KIM) - Final HEMOCCULT POSITIVE Complete 11/25/17 17:45 Sputum Endotracheal Gram Stain - Final Complete 11/25/17 17:45 Sputum Endotracheal Sputum Culture - Final HEAVY GROWTH NORMAL RESPIRATORY [place] Complete 11/23/17 13:45 Urine Clean Catch Urine Culture - Final Swati Glabrata Complete Radiology Last 48 hours Impressions Abdomen/Pelvis CT 11/17/17 0000 Signed Impressions: Service Date/Time: Friday, November 17, 2017 01:08 - CONCLUSION: 1. Distended stomach. 2. Fluid distended colon without dilated loops of small bowel. Víctor Bates MD Abdomen X-Ray 11/17/17 0000 Signed Impressions: Service Date/Time: Friday, November 17, 2017 07:37 - CONCLUSION: No bowel obstruction, ileus or perforation. Swapnil Saldaña MD Abdomen Ultrasound 11/17/17 0000 Signed Impressions: Service Date/Time: Friday, November 17, 2017 08:01 - CONCLUSION: Negative for occlusion or significant stenosis. Luis A Castillo MD FACR Chest X-Ray 11/16/17 2326 Signed Impressions: Service Date/Time: Thursday, November 16, 2017 23:51 - CONCLUSION: Hyperaerated lungs. No infiltrates seen. Víctor Bates MD Cardiovascular: Regular Lungs: Clear Abdomen: Other (soft; tender on exam ) Extremities: Other (mild BUE edema ) A/P Assessment and Plan 67 year old female with abdominal pain; lactic acidosis -s/p flex sigmoidoscopy shows ulcers; diffuse abnormal mucosa; ? ischemic colitis -CTA on hold due to increase in creatinine -CCM following; BiPAP off for now -S/p platelet transfusion yesterday; 17k today---currently receiving another unit of platelets -ID following--- Zosyn; on Diflucan -Patient poor surgical candidate; would be appropriate to transition to Comfort [facility] if family desires -Palliative Care following--- Patient now DNR/DNI; family meeting pending today Nicky Neil/Metals Analyst ARNP Dec 02, 2017 11:03
[2017-12-02] MEDS: CHLOROTHIAZIDE SOD 500 MG VIAL IV SCH ×2 (12:09→21:05)
--- NOTE | 2017-12-02 12:23 | HHI.GIFU ---
Subjective Remarks Pt resting in bed Remains nonverbal Respirations remain irregular at bedside holding her hand He states patient seems to be uncomfortable when I pressed on her stomach No BMs documented in chart (Lesa Piedra) Objective Vitals I&O Vital Signs Date Time Temp Pulse Resp B/P (MAP) Pulse Ox O2 Delivery O2 Flow Rate FiO2 12/02/17 11:00 109 12/02/17 11:00 109 28 138/68 (91) 93 12/02/17 10:38 107 28 129/68 (88) 93 12/02/17 10:37 99.1 108 28 129/68 93 12/02/17 10:09 98.6 102 24 127/69 95 12/02/17 10:00 101 12/02/17 10:00 102 28 127/69 (88) 96 12/02/17 09:29 98 Nasal Cannula 3.00 12/02/17 09:00 112 21 135/67 (89) 100 12/02/17 09:00 112 12/02/17 08:00 99.2 113 23 155/72 (99) 99 12/02/17 08:00 112 12/02/17 07:00 108 20 157/66 (96) 100 12/02/17 07:00 109 12/02/17 06:18 18 12/02/17 06:00 104 12/02/17 04:00 98.9 107 26 106/77 (87) 100 12/02/17 04:00 107 12/02/17 03:34 100 40 12/02/17 02:00 99 12/02/17 01:05 99 40 12/02/17 00:00 98 12/02/17 00:00 98.7 98 23 145/77 (99) 100 12/01/17 22:00 83 12/01/17 21:42 99 40 12/01/17 20:00 83 12/01/17 20:00 99.1 83 17 123/60 (81) 100 12/01/17 18:00 103 12/01/17 18:00 103 27 99 12/01/17 17:00 107 12/01/17 17:00 111 30 187/103 (131) 100 12/01/17 16:17 100 40 12/01/17 16:00 108 12/01/17 16:00 99.7 107 24 139/88 (105) 100 12/01/17 15:17 99.9 122 23 121/75 99 12/01/17 15:00 126 32 121/75 (90) 98 12/01/17 15:00 120 12/01/17 14:00 131 22 160/121 (134) 99 12/01/17 14:00 125 12/01/17 13:00 118 12/01/17 13:00 123 23 154/91 (112) 100 I/O 12/01/17 12/01/17 12/01/17 12/02/17 12/02/17 12/02/17 07:00 15:00 23:00 07:00 15:00 23:00 Intake Total 50 ml 520 ml 50 ml 239 ml Output Total 700 ml 400 ml 500 ml Balance -700 ml 50 ml 120 ml -450 ml 239 ml Intake Oral 0 ml 0 ml IV Total 100 ml 50 ml Platelets 370 ml 239 ml Blood Product IV Normal Saline Flush 50 ml Other 50 ml Output Urine Total 700 ml 400 ml 500 ml # Bowel Movements 1 0 0 Laboratory Laboratory Tests Test 12/01/17 13:31 12/01/17 21:15 12/02/17 04:35 Lactic Acid Level 0.7 Urine Color LIGHT-YELLOW Urine Turbidity CLEAR Urine pH 5.5 Urine Specific [place] 1.009 Urine Protein 30 Urine Glucose (UA) NEG Urine Ketones NEG Urine Occult Blood SMALL Urine Nitrite NEG Urine Bilirubin NEG Urine Urobilinogen LESS THAN 2.0 Urine Leukocyte Esterase NEG Urine RBC 3 Urine WBC 2 Urine Amorphous Sediment RARE Urine Bacteria RARE Microscopic Urinalysis Comment CULT NOT INDICATED White Blood Count 6.1 Red Blood Count 2.84 Hemoglobin 9.4 Hematocrit 28.4 Mean Corpuscular Volume 100.1 Mean Corpuscular Hemoglobin 33.3 Mean Corpuscular Hemoglobin Concent 33.2 Red Cell Distribution Width 25.0 Platelet Count 17 Mean Platelet Volume 9.5 Neutrophils (%) (Auto) 66.8 Lymphocytes (%) (Auto) 21.7 Monocytes (%) (Auto) 10.4 Eosinophils (%) (Auto) 0.8 Basophils (%) (Auto) 0.3 Neutrophils # (Auto) 4.1 Lymphocytes # (Auto) 1.3 Monocytes # (Auto) 0.6 Eosinophils # (Auto) 0.1 Basophils # (Auto) 0.0 CBC Comment AUTO DIFF Differential Total Cells Counted 100 Neutrophils % (Manual) 25 Band Neutrophils % 37 Lymphocytes % 24 Monocytes % 10 Eosinophils % 2 Neutrophils # (Manual) 3.9 Metamyelocytes 1 Promyelocytes 1 Differential Comment FINAL DIFF MANUAL Dohle Bodies PRESENT Platelet Estimate RARE Platelet Morphology Comment NORMAL Blood Urea Nitrogen 57 Creatinine 2.73 Random Glucose 91 Total Protein 6.0 Albumin 1.8 Calcium Level 6.9 Alkaline Phosphatase 77 Aspartate Amino Transf (AST/SGOT) 24 Alanine Aminotransferase (ALT/SGPT) 11 Total Bilirubin 0.4 Sodium Level 148 Potassium Level 4.0 Chloride Level 114 Carbon Dioxide Level 23.5 Anion Gap 11 Estimat Glomerular Filtration Rate 17 Protein Corrected Calcium 7.5 Date/Time Source Procedure Growth Status 11/30/17 16:45 Blood Peripheral Aerobic Blood Culture - Preliminary NO GROWTH IN 2 DAYS Resulted 11/30/17 16:45 Blood Peripheral Anaerobic Blood Culture - Preliminary NO GROWTH IN 2 DAYS Resulted 11/18/17 14:25 Stool Stool Stool Occult Blood (KIM) - Final HEMOCCULT POSITIVE Complete 11/25/17 17:45 Sputum Endotracheal Gram Stain - Final Complete 11/25/17 17:45 Sputum Endotracheal Sputum Culture - Final HEAVY GROWTH NORMAL RESPIRATORY [place] Complete 11/23/17 13:45 Urine Clean Catch Urine Culture - Final Swati Glabrata Complete Imaging Last Impressions Renal Ultrasound 12/01/17 0000 Signed Impressions: Service Date/Time: Friday, December 01, 2017 21:49 - CONCLUSION: Normal examination. Anuel Suazo MD Chest X-Ray 12/01/17 0000 Signed Impressions: Service Date/Time: Friday, December 01, 2017 19:48 - CONCLUSION: 1. Basilar airspace disease and pleural effusions similar to November 30. Roby Brito MD Head CT 11/30/17 0000 Signed Impressions: Service Date/Time: Thursday, November 30, 2017 12:15 - CONCLUSION: Negative noncontrast head CT. Ousmane Aguilar MD Abdomen X-Ray 11/23/17 0000 Signed Impressions: Service Date/Time: Thursday, November 23, 2017 06:14 - CONCLUSION: Nonobstructive bowel gas pattern without significant change. Ousmane Aguilar MD Brain MRI 11/20/17 1409 Signed Impressions: Service Date/Time: October 20:54 - CONCLUSION: 1. No acute intracranial abnormality. Right-sided mastoid air cell disease. No recent infarct, mass effect or shift. Roby Brito MD Lower Extremity Ultrasound 11/20/17 0000 Signed Impressions: Service Date/Time: October 11:48 - CONCLUSION: 1. No evidence of DVT. 2. Small right Stovall's cyst. Keven Lake MD Chest CT 11/19/17 0000 Signed Impressions: Service Date/Time: Sunday, November 19, 2017 17:10 - CONCLUSION: Minimal consolidative changes as above Small pleural effusions. Luis A Castillo MD FACR Abdomen/Pelvis CT 11/19/17 0000 Signed Impressions: Service Date/Time: Sunday, November 19, 2017 17:10 - CONCLUSION: Trace ascites or subcapsular fluid around liver Prominent gallbladder Luis A Castillo MD FACR Abdomen Ultrasound 11/17/17 0000 Signed Impressions: Service Date/Time: Friday, November 17, 2017 08:01 - CONCLUSION: Negative for occlusion or significant stenosis. Luis A Castillo MD FACR Physical Exam HEENT: Normocephalic; atraumatic CHEST: Irregular respirations CARDIAC: Regular rate and rhythm ABDOMEN: Soft, nondistended, seems to be tender to palpation, bowel sounds active EXTREMITIES: BUE and BLE edema SKIN: Pale; no rash; no jaundice. RECREATION WORKER: Awake, nonverbal (Lesa Piedra) Assessment and Plan Assessment: (1) Chronic anemia ICD Codes: D64.9 - Anemia, unspecified Status: Acute (2) Abdominal pain ICD Codes: R10.9 - Unspecified abdominal pain Status: Resolved Plan Abdominal pain and distention- KUB (11/17) --> No signs of obstruction, ileus or perforation. US abd SMA/Celiac --> Negative for occlusion or significant stenosis. - Anemia- macrocytic- H/H dropped to 6.7/20.2 yesterday- received one unit PRBCs- currently 05/26.9. No signs of GIB via NGT or rectal output. 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 Ammonia now WNL. Unclear cause of metabolic encephalopathy. Anemia and thrombocytopenia. Drop in H/H and platelets now 17. Not stable for endoscopic procedures. SBFT ordered, pt to agitated for procedure. wanting to hold off on this at this time Liver DIAZ pending, serum mercury, Vit D A C, serum copper Reexamined at 11:28 Pt is now alert and oriented, complaining of pain but can not localize it. Per RN reports of dark red blood through NGT. Palliative care consult pending now that pt is alert and oriented and able to participate in health care decisions. Remains at very high risk for procedures and her wishes should be addressed, likely to require intubation for endoscopic procedures. Platelet replacement per hematology. SBFT (11/23) --> Nonobstructive bowel gas pattern without significant change. (11/27) S/P colonoscopy yesterday for reports of maroon colored stool. --> Severe colitis possibly secondary to C Diff colitis. Rectal ulcers etiology unclear. Descent colon and rectal biopsies. Pt with rectal bag with no stool at this time. RN aware to send stool for C. Diff testing. H/H 11.2/32.4 S/P 1 U PRBCs yesterday. Platelet tx per Dr. Luong. (12/02) Pt S/P flex sigmoidoscopy yesterday --> Multiple ulcers ranging between 3-5 mm in size were found in the rectum. Diffuse abnormal mucosa was found in the sigmoid colon, mucosa was congested and erythematous, internal and external hemorrhoids. H/H continues to trend down. Despite 1 U platelets yesterday, platelets dropped to 17 this morning, another unit was transfused this morning. No BM documented since procedure yesterday. IR consult for angiogram with CO2 for mesenteric ischemia pending. Renal function continues to decrease. Electrolyte imbalance noted. Plan: - Angiogram with CO2 - Monitor stool count - Monitor labs (H/H, platelets) - Further recommendations based on clinical course Pt has been seen and examined by myself and Dr. Olivares and this note is written on his behalf (Lesa Piedra) Physician Comments Seen and examined with MORGAN, discussed with IR yesterday. Previous angiogram in september - for mesenteric occlusion. Renal consulted for worsening renal functions. Also asked Dr Barry to reconsult GS. Timing of MRA vs. Angiogram to be determined by IR. Thrombocytopenia and low GFR relative contra indication to above testing. (Stefan Olivares MD) Problem Qualifiers (1) Abdominal pain: Qualified Codes: R10.84 - Generalized abdominal pain Lesa Piedra Dec 02, 2017 12:23 Stefan Olivares MD Dec 02, 2017 14:31
--- NOTE | 2017-12-02 15:10 | PD.ONC.PN ---
Subjective Subjective Remarks Afebrile overnight. Patient confused. No family at bedside. Objective Data Date Time Temp Pulse Resp B/P (MAP) Pulse Ox O2 Delivery O2 Flow Rate FiO2 12/02/17 11:00 109 12/02/17 11:00 109 28 138/68 (91) 93 12/02/17 10:38 107 28 129/68 (88) 93 12/02/17 10:37 99.1 108 28 129/68 93 12/02/17 10:09 98.6 102 24 127/69 95 12/02/17 10:00 101 12/02/17 10:00 102 28 127/69 (88) 96 12/02/17 09:29 98 Nasal Cannula 3.00 12/02/17 09:00 112 21 135/67 (89) 100 12/02/17 09:00 112 12/02/17 08:00 99.2 113 23 155/72 (99) 99 12/02/17 08:00 112 12/02/17 07:00 108 20 157/66 (96) 100 12/02/17 07:00 109 12/02/17 06:18 18 12/02/17 06:00 104 12/02/17 04:00 98.9 107 26 106/77 (87) 100 12/02/17 04:00 107 12/02/17 03:34 100 40 12/02/17 02:00 99 12/02/17 01:05 99 40 12/02/17 00:00 98 12/02/17 00:00 98.7 98 23 145/77 (99) 100 12/01/17 22:00 83 12/01/17 21:42 99 40 12/01/17 20:00 83 12/01/17 20:00 99.1 83 17 123/60 (81) 100 12/01/17 18:00 103 12/01/17 18:00 103 27 99 12/01/17 17:00 107 12/01/17 17:00 111 30 187/103 (131) 100 12/01/17 16:17 100 40 12/01/17 16:00 108 12/01/17 16:00 99.7 107 24 139/88 (105) 100 12/01/17 15:17 99.9 122 23 121/75 99 12/02/17 12/02/17 12/02/17 07:00 15:00 23:00 Intake Total 50 ml 289 ml Output Total 500 ml Balance -450 ml 289 ml Result Diagram: 12/02/17 0435 12/02/17 0435 Laboratory Results Laboratory Tests Test 12/01/17 21:15 12/02/17 04:35 Urine Color LIGHT-YELLOW Urine Turbidity CLEAR Urine pH 5.5 Urine Specific [place] 1.009 Urine Protein 30 mg/dL Urine Glucose (UA) NEG mg/dL Urine Ketones NEG mg/dL Urine Occult Blood SMALL Urine Nitrite NEG Urine Bilirubin NEG Urine Urobilinogen LESS THAN 2.0 MG/DL Urine Leukocyte Esterase NEG Urine RBC 3 /hpf Urine WBC 2 /hpf Urine Amorphous Sediment RARE Urine Bacteria RARE /hpf Microscopic Urinalysis Comment CULT NOT INDICATED White Blood Count 6.1 TH/MM3 Red Blood Count 2.84 MIL/MM3 Hemoglobin 9.4 GM/DL Hematocrit 28.4 % Mean Corpuscular Volume 100.1 FL Mean Corpuscular Hemoglobin 33.3 PG Mean Corpuscular Hemoglobin Concent 33.2 % Red Cell Distribution Width 25.0 % Platelet Count 17 TH/MM3 Mean Platelet Volume 9.5 FL Neutrophils (%) (Auto) 66.8 % Lymphocytes (%) (Auto) 21.7 % Monocytes (%) (Auto) 10.4 % Eosinophils (%) (Auto) 0.8 % Basophils (%) (Auto) 0.3 % Neutrophils # (Auto) 4.1 TH/MM3 Lymphocytes # (Auto) 1.3 TH/MM3 Monocytes # (Auto) 0.6 TH/MM3 Eosinophils # (Auto) 0.1 TH/MM3 Basophils # (Auto) 0.0 TH/MM3 CBC Comment AUTO DIFF Differential Total Cells Counted 100 Neutrophils % (Manual) 25 % Band Neutrophils % 37 % Lymphocytes % 24 % Monocytes % 10 % Eosinophils % 2 % Neutrophils # (Manual) 3.9 TH/MM3 Metamyelocytes 1 % Promyelocytes 1 % Differential Comment FINAL DIFF MANUAL Dohle Bodies PRESENT Platelet Estimate RARE Platelet Morphology Comment NORMAL Blood Urea Nitrogen 57 MG/DL Creatinine 2.73 MG/DL Random Glucose 91 MG/DL Total Protein 6.0 GM/DL Albumin 1.8 GM/DL Calcium Level 6.9 MG/DL Alkaline Phosphatase 77 U/L Aspartate Amino Transf (AST/SGOT) 24 U/L Alanine Aminotransferase (ALT/SGPT) 11 U/L Total Bilirubin 0.4 MG/DL Sodium Level 148 MEQ/L Potassium Level 4.0 MEQ/L Chloride Level 114 MEQ/L Carbon Dioxide Level 23.5 MEQ/L Anion Gap 11 MEQ/L Estimat Glomerular Filtration Rate 17 ML/MIN Protein Corrected Calcium 7.5 MG/DL Culture Results Microbiology Date/Time Source Procedure Growth Status 11/30/17 16:45 Blood Peripheral Aerobic Blood Culture - Preliminary NO GROWTH IN 2 DAYS Resulted 11/30/17 16:45 Blood Peripheral Anaerobic Blood Culture - Preliminary NO GROWTH IN 2 DAYS Resulted 11/30/17 16:40 Blood Peripheral Aerobic Blood Culture - Preliminary NO GROWTH IN 2 DAYS Resulted 11/30/17 16:40 Blood Peripheral Anaerobic Blood Culture - Preliminary NO GROWTH IN 2 DAYS Resulted Administered Medications Medications (Trade) Dose Ordered Sig/[place] Route PRN Reason Start Time Stop Time Status Last Admin Dose Admin Sodium Chloride (NS Flush) 2 ml UNSCH PRN IV FLUSH FLUSH AFTER USING IV ACCESS 11/17/17 06:45 11/30/17 07:51 Sodium Chloride (NS Flush) 2 ml BID IV FLUSH 11/17/17 09:00 12/02/17 09:26 Acetaminophen (Tylenol) 650 mg Q6H PRN PO FEVER >101F 11/17/17 06:45 11/24/17 08:24 Albuterol/ Ipratropium (Duoneb Neb) 1 ampule Q4HR NEB PRN INH WHEEZING 11/17/17 06:45 12/02/17 09:29 Miscellaneous Information 1 Q361D XX 11/17/17 06:45 11/17/17 06:45 Chlorhexidine Gluconate (Chlorhexidine 2% Cloth) Taper DAILY@04 TOP 11/18/17 04:00 11/14/18 03:59 12/02/17 04:57 Sennosides (Senokot) 17.2 mg Q12H PRN PO Moderate constipation 11/17/17 06:45 11/17/17 09:11 Albuterol Sulfate (Albuterol Neb) 2.5 mg Q4HR NEB PRN NEB SHORTNESS OF BREATH 11/17/17 07:45 12/01/17 21:45 Budesonide (Pulmicort Respule Neb) 0.25 mg DAILY NEB NEB 11/17/17 08:00 12/02/17 09:29 Tiotropium [place] (Spiriva Inh) 18 mcg DAILY INH 11/17/17 09:00 11/30/17 07:50 Diltiazem HCl (Cardizem) 60 mg Q6HR PO 11/20/17 12:00 11/30/17 17:28 Rifaximin (Xifaxan) 550 mg BID PO 11/20/17 21:00 11/30/17 07:51 Potassium Phosphate (K-Phos) 2,000 mg Q4H PRN PO For Phosphorus < 2.5 mg/dL 11/21/17 13:30 11/26/17 12:24 Sodium Phosphate 30 mmol/Sodium Chloride 250 ml @ 42 mls/hr UNSCH PRN IV For Phosphorus < 2.5 mg/dL 11/21/17 13:30 11/26/17 15:07 Hydralazine HCl (Apresoline Inj) 10 mg Q4H PRN IV PUSH SYS BP GREATER THAN 160 MMHG 11/21/17 16:45 12/01/17 09:14 Metoprolol Tartrate (Lopressor Inj) 5 mg Q5M PRN IV PUSH HR>100 11/22/17 00:00 12/02/17 14:48 Hydromorphone HCl (Dilaudid Pf Inj) 0.5 mg Q4H PRN IV pain >5/10 11/22/17 02:45 12/02/17 13:39 Metoprolol Tartrate (Lopressor) 50 mg Q12HR PO 11/22/17 09:00 11/30/17 07:51 Famotidine (Pepcid) 10 mg BID PO 11/24/17 21:00 11/30/17 07:51 Propofol 100 ml @ 2.04 mls/hr TITRATE PRN IV Sedation 11/25/17 12:15 11/27/17 06:11 Fluconazole/ Sodium Chloride 100 ml @ 100 mls/hr Q24H IV 11/25/17 18:00 12/01/17 18:50 Acetaminophen/ Hydrocodone Bitart ([place] 5-325 Mg) 1 tab Q4H PRN PO PAIN 1-4 11/27/17 10:45 11/30/17 17:28 Dextrose (D50w (Vial) Inj) 50 ml UNSCH PRN IV PUSH HYPOGLYCEMIA-SEE COMMENTS 11/29/17 15:45 12/01/17 17:01 Insulin Aspart (NovoLOG SUPPLEMENTAL SCALE) 1 ACHS SLIDING SCALE SQ 11/29/17 17:00 11/29/17 21:18 Methylprednisolone Sodium Succinate (SoluMEDROL INJ) 40 mg Q12HR IV PUSH 12/02/17 09:00 12/02/17 09:26 Chlorothiazide Sodium (Diuril Inj) 250 mg BID IV 12/02/17 09:30 12/02/17 12:09 Objective Remarks GENERAL: confused but pleasant middle aged female, sitting up in bed SKIN: Warm and dry. HEAD: Normocephalic. EYES: No injection or drainage. NECK: Supple, trachea midline. CARDIOVASCULAR: Regular rate and rhythm RESPIRATORY: anterior cates clear GASTROINTESTINAL: Abdomen soft, non-tender, nondistended. EXTREMITIES: No cyanosis NEUROLOGICAL: awake. does not follow commands, does track with eyes. Assessment/Plan Problem List: (1) Idiopathic thrombocytopenia purpura ICD Codes: D69.3 - Immune thrombocytopenic purpura Status: Acute Plan: 12/02: give 1 unit platelets. start solu-medrol 40mg IV BID --platelets may be lower due to consumption and antibiotics. --had splenectomy in 2009. --was treated with Nplate in the past with good response. --per , patient's baseline is between 50-70K and she has not required treatment for ITP since spleen removal several years ago. --platelet count has been fluctuating between 40,000-70,000. --no indication to start treatment for the idiopathic thrombocytopenic purpura at this point. (2) Arterial occlusion ICD Codes: I70.90 - Unspecified atherosclerosis Plan: --History of left popliteal arterial occlusion, likely an embolic event. --had embolectomy in September of this year. then started on Pradaxa, but later switched to Xarelto. --presented with abdominal pain and could have ischemic bowel (3) Abdominal pain ICD Codes: R10.9 - Unspecified abdominal pain Status: Resolved Plan: --EGD on 11/25 showed erosive gastritis of the cardia, possibly related to NGT injury. NGT was removed during procedure. --Cx on 11/26 showed severe colitis --presented with acute severe abdominal pain. --CT did not show any bowel obstruction. --Ultrasound also negative for occlusion or stenosis. 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 h/o Chronic anemia. Chronic back pain. Multiple compression fractures. Chronic obstructive pulmonary disease. Hypertension. Left popliteal arterial occlusion. Plan 1. Transfuse 1 unit platelets today 2. monitor CBC 3. continue supportive care. Attending Statement The exam, history, and the medical decision-making described in the above note were completed with the assistance of the mid-level provider. I reviewed and agree with the findings presented. I attest that I had a [id number] encounter with the patient on the same day, and personally performed and documented my assessment and findings in the medical record. Still confused. + abdominal pain. Flex sig showed worsening colitis. Discussed with nursing staff, no bleeding reported. Platelet trended lower likely consumptive process. Will start solumedrol and transfuse another unit of platelet. Not able to restart anticoagulation. Monitor for sign of bleeding. Problem Qualifiers (1) Abdominal pain: Qualified Codes: R10.84 - Generalized abdominal pain Keke Foster Dec 02, 2017 15:10 Braden Luong MD Dec 02, 2017 15:21
[2017-12-02] MEDS: PIPERACIL-TAZO 2.25 GM PREMIX 50 ML IV SCH ×2 (17:17→21:05)
--- NOTE | 2017-12-02 17:30 | HHI.HCPN ---
Reason for visit a. To assist with evaluation and management of symptoms including: dyspnea, pain. b. To assist medical decision maker(s) with: better understanding of current medical conditions; weighing benefits/burdens of medical treatment options; making medical treatment decisions. . (Rosalinda Vaughan) Subjective/Interval History Patient seen and examined in ICU. "Kenn" at bedside. Also present Narcisa Price LCSW. Spoke with nurse, Yoselin. Patient more confused. She is not tracking or following commands. Afebrile. Intermittent tachycardia, tachypnea and hypertension. On intermittent BiPAP, on oxygen via NC 3LPM. Platelets 17. Creatinine increasing now 2.73, BUN 57, GFR 17. Albumin 1.8. PRN hydromorphone appears to be controlling pain per spouse report, has had 4 doses of PRN hydromorphone in the past 24 hours. . Family/friend interactions Spoke with spouse, also present Narcisa Price. Spouse indicates he spoke with general surgery and nephrology. He tells me that general surgery recommended monitoring patient for 24-48 hours. He is considering transition to comfort with hospice. He wants to speak with his friend who used to work for a hospice in [facility]. He is not ready to consider this transition today, he will call palliative care team if he decides to meet with hospice. He indicates daughter will not be coming to [place] and uncertain if and when son will be coming. Advised he can have her children call if they have questions. He verbalizes appreciation for time spent. . (Rosalinda Vaughan) Advance Directives Living Will: Completed, but not made available Health Care Surrogate: Completed, but not made available Durable Power of Endoscopy Rn: Never completed (Rosalinda Vaughan) Advance Directive Specifics Health Care Surrogate(s): Patient is not capacitated to make her own healthcare decisions given clinical condition, unlikely she will regain capacity. Copies requested. Spouse indicates that he is designated healthcare surrogate. According to [place] statute, healthcare proxy decision making falls the patient's spouse. . Significant change in goals: NO CODE (DNR/DNI). Desires continued aggressive care for another 24-48 hours, considering hospice. Will certainly consider if her condition worsens. He wants to speak with a friend who used to work for hospice. . (Rosalinda Vaughan) Objective Vital Signs Date Time Temp Pulse Resp B/P (MAP) Pulse Ox O2 Delivery O2 Flow Rate FiO2 12/02/17 15:00 106 19 133/95 (108) 96 12/02/17 15:00 106 12/02/17 14:47 154 20 247/188 (207) 97 12/02/17 14:47 154 12/02/17 14:31 110 20 219/175 (190) 96 12/02/17 14:00 119 12/02/17 14:00 123 24 210/151 (170) 96 12/02/17 13:00 120 12/02/17 13:00 120 34 142/98 (113) 94 12/02/17 12:00 115 12/02/17 12:00 98.6 118 27 133/79 (97) 94 12/02/17 11:00 109 12/02/17 11:00 109 28 138/68 (91) 93 12/02/17 10:38 107 28 129/68 (88) 93 12/02/17 10:37 99.1 108 28 129/68 93 12/02/17 10:09 98.6 102 24 127/69 95 12/02/17 10:00 101 12/02/17 10:00 102 28 127/69 (88) 96 12/02/17 09:29 98 Nasal Cannula 3.00 12/02/17 09:00 112 21 135/67 (89) 100 12/02/17 09:00 112 12/02/17 08:00 99.2 113 23 155/72 (99) 99 12/02/17 08:00 112 12/02/17 07:00 108 20 157/66 (96) 100 12/02/17 07:00 109 12/02/17 06:18 18 12/02/17 06:00 104 12/02/17 04:00 98.9 107 26 106/77 (87) 100 12/02/17 04:00 107 12/02/17 03:34 100 40 12/02/17 02:00 99 12/02/17 01:05 99 40 12/02/17 00:00 98 12/02/17 00:00 98.7 98 23 145/77 (99) 100 12/01/17 22:00 83 12/01/17 21:42 99 40 12/01/17 20:00 83 12/01/17 20:00 99.1 83 17 123/60 (81) 100 12/01/17 18:00 103 12/01/17 18:00 103 27 99 12/01/17 17:00 107 12/01/17 17:00 111 30 187/103 (131) 100 12/01/17 16:17 100 40 Intake & Output 12/02/17 12/02/17 07:00 19:00 Intake Total 100 ml 289 ml Output Total 500 ml Balance -400 ml 289 ml Intake Oral 0 ml IV Total 100 ml 50 ml Platelets 239 ml Output Urine Total 500 ml # Bowel Movements 0 Physical Exam CONSTITUTIONAL/GENERAL: This is an adequately nourished patient, restless, confused patient. TUBES/LINES/DRAINS: NC, PIV. SKIN: Ecchymoses on all extremities. Erythema on upper extremities. Skin temperature appropriate. Not diaphoretic. EYES: Eyes open briefly, not tracking or blinking to threat. ENT: Unable to assess hearing. Nose without bleeding or purulent drainage. Oral mucosa dry. CARDIOVASCULAR: Tachycardic. RESPIRATORY/CHEST: unlabored respirations. Scattered course breath sounds. Diminished bases. GASTROINTESTINAL: Abdomen soft, tender, distended. Bowel sounds hypoactive. GENITOURINARY: Without palpable bladder distension. MUSCULOSKELETAL: Extremities with generalized edema. NEUROLOGICAL: Eyes open intermittently, not tracking or blinking to threat, starring up at ceiling. Not following commands or answering questions. PSYCHIATRIC: Confused. . (Rosalinda Vaughan) Diagnostic Tests Laboratory Laboratory Tests Test 11/29/17 16:20 11/30/17 01:04 11/30/17 05:41 11/30/17 12:50 Blood Gas Puncture Site RT RADIAL RT RADIAL RT RADIAL Blood Gas Patient Temperature 98.6 98.6 98.6 Blood Gas HCO3 23 mmol/L (22-26) 24 mmol/L (22-26) 24 mmol/L (22-26) Blood Gas Base Excess -1.4 mmol/L (-2-2) -2.4 mmol/L (-2-2) -1.2 mmol/L (-2-2) Blood Gas Oxygen Saturation 95 % (90-100) 97 % (90-100) 92 % (90-100) Arterial Blood pH 7.35 (7.380-7.420) 7.24 (7.380-7.420) 7.33 (7.380-7.420) Arterial Blood Partial Pressure CO2 44 mmHg (38-42) 58 mmHg (38-42) 47 mmHg (38-42) Arterial Blood Partial Pressure O2 99 mmHg (61-120) 170 mmHg (61-120) 74 mmHg (61-120) Arterial Blood Oxygen Content 14.2 Vol % (12.0-20.0) 14.3 Vol % (12.0-20.0) 13.2 Vol % (12.0-20.0) Arterial Blood Carboxyhemoglobin 1.3 % (0-4) 1.0 % (0-4) 1.3 % (0-4) Arterial Blood Methemoglobin 1.2 % (0-2) 1.4 % (0-2) 1.3 % (0-2) Blood Gas Hemoglobin 10.5 G/DL (12.0-16.0) 10.3 G/DL (12.0-16.0) 10.1 G/DL (12.0-16.0) Oxygen Delivery Device NASAL CANNULA NASAL CANNULA NASAL CANNULA Blood Gas Liter Flow 3 L/M 4 L/M 3 L/M White Blood Count 5.3 TH/MM3 (4.0-11.0) Red Blood Count 3.09 MIL/MM3 (4.00-5.30) Hemoglobin 10.2 GM/DL (11.6-15.3) Hematocrit 30.8 % (35.0-46.0) Mean Corpuscular Volume 99.7 FL (80.0-100.0) Mean Corpuscular Hemoglobin 33.0 PG (27.0-34.0) Mean Corpuscular Hemoglobin Concent 33.1 % (32.0-36.0) Red Cell Distribution Width 24.8 % (11.6-17.2) Platelet Count 26 TH/MM3 (150-450) Mean Platelet Volume 9.2 FL (7.0-11.0) Blood Urea Nitrogen 44 MG/DL (7-18) Creatinine 2.01 MG/DL (0.50-1.00) Random Glucose 109 MG/DL (74-106) Total Protein 6.2 GM/DL (6.4-8.2) Calcium Level 7.4 MG/DL (8.5-10.1) Sodium Level 144 MEQ/L (136-145) Potassium Level 3.8 MEQ/L (3.5-5.1) Chloride Level 112 MEQ/L (98-107) Carbon Dioxide Level 23.6 MEQ/L (21.0-32.0) Anion Gap 8 MEQ/L (5-15) Estimat Glomerular Filtration Rate 25 ML/MIN (>89) Protein Corrected Calcium 7.9 MG/DL (8.5-10.1) Test 12/01/17 09:52 12/01/17 13:31 12/01/17 21:15 12/02/17 04:35 White Blood Count 6.1 TH/MM3 (4.0-11.0) 6.1 TH/MM3 (4.0-11.0) Red Blood Count 3.04 MIL/MM3 (4.00-5.30) 2.84 MIL/MM3 (4.00-5.30) Hemoglobin 10.0 GM/DL (11.6-15.3) 9.4 GM/DL (11.6-15.3) Hematocrit 30.2 % (35.0-46.0) 28.4 % (35.0-46.0) Mean Corpuscular Volume 99.3 FL (80.0-100.0) 100.1 FL (80.0-100.0) Mean Corpuscular Hemoglobin 33.0 PG (27.0-34.0) 33.3 PG (27.0-34.0) Mean Corpuscular Hemoglobin Concent 33.3 % (32.0-36.0) 33.2 % (32.0-36.0) Red Cell Distribution Width 25.0 % (11.6-17.2) 25.0 % (11.6-17.2) Platelet Count 22 TH/MM3 (150-450) 17 TH/MM3 (150-450) Mean Platelet Volume 10.0 FL (7.0-11.0) 9.5 FL (7.0-11.0) Neutrophils (%) (Auto) 73.1 % (16.0-70.0) 66.8 % (16.0-70.0) Lymphocytes (%) (Auto) 16.0 % (9.0-44.0) 21.7 % (9.0-44.0) Monocytes (%) (Auto) 10.3 % (0.0-8.0) 10.4 % (0.0-8.0) Eosinophils (%) (Auto) 0.4 % (0.0-4.0) 0.8 % (0.0-4.0) Basophils (%) (Auto) 0.2 % (0.0-2.0) 0.3 % (0.0-2.0) Neutrophils # (Auto) 4.5 TH/MM3 (1.8-7.7) 4.1 TH/MM3 (1.8-7.7) Lymphocytes # (Auto) 1.0 TH/MM3 (1.0-4.8) 1.3 TH/MM3 (1.0-4.8) Monocytes # (Auto) 0.6 TH/MM3 (0-0.9) 0.6 TH/MM3 (0-0.9) Eosinophils # (Auto) 0.0 TH/MM3 (0-0.4) 0.1 TH/MM3 (0-0.4) Basophils # (Auto) 0.0 TH/MM3 (0-0.2) 0.0 TH/MM3 (0-0.2) CBC Comment AUTO DIFF AUTO DIFF Differential Total Cells Counted 100 100 Neutrophils % (Manual) 52 % (16-70) 25 % (16-70) Band Neutrophils % 26 % (0-6) 37 % (0-6) Lymphocytes % 13 % (9-44) 24 % (9-44) Monocytes % 7 % (0-8) 10 % (0-8) Neutrophils # (Manual) 4.9 TH/MM3 (1.8-7.7) 3.9 TH/MM3 (1.8-7.7) Myelocytes 2 % (0-0) Differential Comment FINAL DIFF MANUAL FINAL DIFF MANUAL Toxic Granulation 1+ (NORMAL) Platelet Estimate LOW (NORMAL) RARE (NORMAL) Platelet Morphology Comment NORMAL (NORMAL) NORMAL (NORMAL) Ovalocytes 1+ (NORMAL) Blood Urea Nitrogen 51 MG/DL (7-18) 57 MG/DL (7-18) Creatinine 2.33 MG/DL (0.50-1.00) 2.73 MG/DL (0.50-1.00) Random Glucose 98 MG/DL (74-106) 91 MG/DL (74-106) Total Protein 6.4 GM/DL (6.4-8.2) 6.0 GM/DL (6.4-8.2) Calcium Level 7.1 MG/DL (8.5-10.1) 6.9 MG/DL (8.5-10.1) Sodium Level 147 MEQ/L (136-145) 148 MEQ/L (136-145) Potassium Level 4.0 MEQ/L (3.5-5.1) 4.0 MEQ/L (3.5-5.1) Chloride Level 115 MEQ/L (98-107) 114 MEQ/L (98-107) Carbon Dioxide Level 23.2 MEQ/L (21.0-32.0) 23.5 MEQ/L (21.0-32.0) Anion Gap 9 MEQ/L (5-15) 11 MEQ/L (5-15) Estimat Glomerular Filtration Rate 21 ML/MIN (>89) 17 ML/MIN (>89) Protein Corrected Calcium 7.5 MG/DL (8.5-10.1) 7.5 MG/DL (8.5-10.1) Lactic Acid Level 0.7 mmol/L (0.4-2.0) Urine Color LIGHT-YELLOW (YELLW/STRAW) Urine Turbidity CLEAR (CLEAR) Urine pH 5.5 (5.0-8.5) Urine Specific [place] 1.009 (1.002-1.035) Urine Protein 30 mg/dL (NEG-TRACE) Urine Glucose (UA) NEG mg/dL (NEG) Urine Ketones NEG mg/dL (NEG) Urine Occult Blood SMALL (NEG) Urine Nitrite NEG (NEG) Urine Bilirubin NEG (NEG) Urine Urobilinogen LESS THAN 2.0 MG/DL (LESS Urine Leukocyte Esterase NEG (NEG) Urine RBC 3 /hpf (0-3) Urine WBC 2 /hpf (0-5) Urine Amorphous Sediment RARE Urine Bacteria RARE /hpf (NONE) Microscopic Urinalysis Comment CULT NOT INDICATED Eosinophils % 2 % (0-4) Metamyelocytes 1 % (0-1) Promyelocytes 1 % (0-0) Dohle Bodies PRESENT (NONE SEEN) Albumin 1.8 GM/DL (3.4-5.0) Alkaline Phosphatase 77 U/L (45-117) Aspartate Amino Transf (AST/SGOT) 24 U/L (15-37) Alanine Aminotransferase (ALT/SGPT) 11 U/L (10-53) Total Bilirubin 0.4 MG/DL (0.2-1.0) (Rosalinda Vaughan) Result Diagram: 12/02/17 0435 12/02/17 0435 Microbiology Microbiology Date/Time Source Procedure Growth Status 11/30/17 16:45 Blood Peripheral Aerobic Blood Culture - Preliminary NO GROWTH IN 2 DAYS Resulted 11/30/17 16:45 Blood Peripheral Anaerobic Blood Culture - Preliminary NO GROWTH IN 2 DAYS Resulted 11/30/17 16:40 Blood Peripheral Aerobic Blood Culture - Preliminary NO GROWTH IN 2 DAYS Resulted 11/30/17 16:40 Blood Peripheral Anaerobic Blood Culture - Preliminary NO GROWTH IN 2 DAYS Resulted Imaging Last Impressions Renal Ultrasound 12/01/17 0000 Signed Impressions: Service Date/Time: Friday, December 01, 2017 21:49 - CONCLUSION: Normal examination. Anuel Suazo MD Chest X-Ray 12/01/17 0000 Signed Impressions: Service Date/Time: Friday, December 01, 2017 19:48 - CONCLUSION: 1. Basilar airspace disease and pleural effusions similar to November 30. Roby Brito MD Head CT 11/30/17 0000 Signed Impressions: Service Date/Time: Thursday, November 30, 2017 12:15 - CONCLUSION: Negative noncontrast head CT. Ousmane Aguilar MD Abdomen X-Ray 11/23/17 0000 Signed Impressions: Service Date/Time: Thursday, November 23, 2017 06:14 - CONCLUSION: Nonobstructive bowel gas pattern without significant change. Ousmane Aguilar MD Brain MRI 11/20/17 1409 Signed Impressions: Service Date/Time: October 20:54 - CONCLUSION: 1. No acute intracranial abnormality. Right-sided mastoid air cell disease. No recent infarct, mass effect or shift. Roby Brito MD Lower Extremity Ultrasound 11/20/17 0000 Signed Impressions: Service Date/Time: October 11:48 - CONCLUSION: 1. No evidence of DVT. 2. Small right Stovall's cyst. Keven Lake MD Chest CT 11/19/17 0000 Signed Impressions: Service Date/Time: Sunday, November 19, 2017 17:10 - CONCLUSION: Minimal consolidative changes as above Small pleural effusions. Luis A Castillo MD FACR Abdomen/Pelvis CT 11/19/17 0000 Signed Impressions: Service Date/Time: Sunday, November 19, 2017 17:10 - CONCLUSION: Trace ascites or subcapsular fluid around liver Prominent gallbladder Luis A Castillo MD FACR Abdomen Ultrasound 11/17/17 0000 Signed Impressions: Service Date/Time: Friday, November 17, 2017 08:01 - CONCLUSION: Negative for occlusion or significant stenosis. Luis A Castillo MD FACR (Rosalinda Vaughan) Assessment and Plan Disease Oriented Problem List: (1) Idiopathic thrombocytopenia purpura (2) Hypertension (3) Chronic back pain (4) Chronic anemia (5) Acute and chronic respiratory failure with hypoxia Symptom Scale: (1) Shortness of breath 0-10 Scale: Unable to quantify (2) Abdominal pain 0-10 Scale: Unable to quantify (3) Anxiety 0-10 Scale: Unable to quantify Pertinent Non-Medical Issues Psychosocial: . Spiritual: Voodoo angela. Legal: According to [place] statute, healthcare proxy decision making falls the patient's spouse. Ethical issues impacting care: No known concerns at this time. Important Contacts * Desi "Kenn" Anthony, spouse: [phone] . Prognosis Mrs. 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 Patient continues to decline despite ongoing aggressive measures since admission 11/16/17. Overall prognosis is poor. . Code Status: No Code Plan * Patient is not capacitated to make her own healthcare decisions given clinical condition, unlikely she will regain capacity. Copies requested. Spouse indicates that he is designated healthcare surrogate. According to [place] statute, healthcare proxy decision making falls the patient's spouse. * NO CODE (DNR/DNI) - spouse indicates patient reported she did not want to be intubated or resuscitated if only serving to artificially prolong the process of dying. Wants to be allowed to peacefully and naturally. * Spouse, "Kenn" (HCP) desires continued aggressive care short of NO CODE (DNR/ DNI) for another 24-48 hours. Spouse indicates he spoke with general surgery and nephrology. He tells me that general surgery recommended monitoring patient for 24-48 hours and if no clinical improvement to consider hospice. He is considering transition to comfort with hospice. He wants to speak with his friend who used to work for a hospice in [facility]. He is not ready to consider this transition today, he will call palliative care team if he decides to meet with hospice. * SYMPTOMS: Dyspnea: Oxygen dependent COPD, on intermittent BiPAP. Anxiety: Secondary to dyspnea. Pain: Sources include no history of chronic back pain, likely ischemic colitis, debility and prolonged hospitalization. Has as needed hydrocodone, hydromorphone available. Has had 2 doses of as needed hydromorphone in the past 24 hours. Will monitor need and effect. Might consider addition of low dose Lorazepam for anxiety/ comfort if needed. * Palliative care will continue to follow to assist with symptom management further clarification of treatment goals. . (Rosalinda Vaughan) Attestation To help prompt me to consider important information that might be impacting today's encounter and assessment, information from prior notes written by myself or my colleagues may have been "brought forward" into today's note. My signature on this note, however, is an attestation that I personally performed the exam, history, and/or decision-making noted today, and, unless otherwise indicated, the interactions with patient, family, and staff as well as the review of records all occurred today. I also attest that the listed assessment and stated plan reflect my best clinical judgment today based on the combination of historical information, prior notes, and today's exam/ interactions. When time spent is documented, it refers only to time spent today by the signer, or if indicated, combined time spent today by collaborating physician/nurse practitioner. (Rosalinda Vaughan) Collaborating MD Comments Chart reviewed. Case discussed with palliative care NAIL MILL WORKER. Above NAIL MILL WORKER note reviewed and I concur. . (Alexsander Messer MD) Rosalinda Vaughan Dec 02, 2017 17:30 Alexsander Messer MD Dec 08, 2017 05:42
--- NOTE | 2017-12-02 17:45 | PD.RAD ---
Radiology Note 67 y/o admitted with sever abdominal pain possible ischemic colitis. Pt is presently quite ill with Platelet count of 17k (Know TTP) despite platelet transfusion and renal failure. We are asked to evaluate for ischemic colitis PT had a CTA 09/03/17 that demonstrated the celiac, SMA and DOMINIQUE all to be widely patent with very little arthrosclerotic disease as such it is highly unlikely a treatable osteal lesion would be present. Due to her present unstable condition , Negative CTA of 09/03/17, Renal failure and decreased platelet count I would not recommend invasive angiography at this time Donte Castillo MD Dec 02, 2017 17:45
[2017-12-02] MEDS: FLUCONAZOLE 200 MG PREMIX BAG 100 ML IV SCH (18:20)
[2017-12-02] MEDS ORDERED: DIGOXIN 0.5 MG/2 ML VIAL IV PUSH ONE (22:15)
[2017-12-03] VITALS (31 sets, daily range): BP systolic 98–143; BP diastolic 57–75; PULSE 104–119; RESP 13–36; TEMP 98.5–99; O2SAT 88–100
[2017-12-03] MEDS: HYDROmorphone HCL PF 2 MG/ML VIAL IV PRN ×4 (01:52→17:52)
[2017-12-03] MEDS: PIPERACIL-TAZO 2.25 GM PREMIX 50 ML IV SCH ×3 (03:58→17:48)
[2017-12-03] MEDS: CHLORHEXIDINE GLUCONATE 2 % 1 PACK (2 CLOTHS) TOP SCH ×2 (03:59→19:31)
[2017-12-03] MEDS: DILTIAZEM HCL 60 MG TAB PO SCH ×4 (05:00→20:22)
[2017-12-03 05:58] LABS: AUTOMATED NEUTROPHIL # 5.6 TH/MM3 (1.8-7.7); BASOPHIL % 0.2 % (0.0-2.0); EOSINOPHIL % 0.1 % (0.0-4.0); HEMATOCRIT 28.9 % (35.0-46.0); HEMOGLOBIN 9.5 GM/DL (11.6-15.3); LYMPH % 12.4 % (9.0-44.0); LYMPHOCYTE # 0.8 TH/MM3 (1.0-4.8); MEAN CELL VOLUME 101.3 FL (80.0-100.0); MEAN CORPUSCULAR HEMOGLOBIN 33.3 PG (27.0-34.0); MEAN CORPUSCULAR HGB CONC 32.8 % (32.0-36.0); MEAN PLATELET VOLUME 8.4 FL (7.0-11.0); MONO % 5.4 % (0.0-8.0); MONOCYTE # 0.4 TH/MM3 (0-0.9); NEUT % 81.9 % (16.0-70.0); PLATELET COUNT 55 TH/MM3 (150-450); RED BLOOD COUNT 2.85 MIL/MM3 (4.00-5.30); WHITE BLOOD COUNT 6.8 TH/MM3 (4.0-11.0)
[2017-12-03 06:10] LABS: PROTHROMBIN TIME - PATIENT 10.6 SEC (9.8-11.6)
[2017-12-03 06:24] LABS: ALBUMIN 1.9 GM/DL (3.4-5.0); BICARBONATE 21.7 MEQ/L (21.0-32.0); CALCIUM 6.7 MG/DL (8.5-10.1); CREATININE 3.53 MG/DL (0.50-1.00); DIRECT BILIRUBIN ADULT 0.1 MG/DL (0.0-0.2); MAGNESIUM 1.9 MG/DL (1.5-2.5); PHOSPHORUS 6.5 MG/DL (2.5-4.9); TOTAL BILIRUBIN ADULT 0.4 MG/DL (0.2-1.0); TOTAL PROTEIN 6.3 GM/DL (6.4-8.2)
[2017-12-03 06:32] LABS: CALCIUM-PROTEIN CORRECTED 7.1 MG/DL (8.5-10.1)
[2017-12-03] MEDS: INSULIN ASPART SUPPLEMENTAL SCALE SQ SCH ×4 (08:00→20:21)
[2017-12-03 08:03] LABS: BANDS 32 % (0-6); BASOPHILS 1 % (0-2); LYMPHOCYTES 11 % (9-44); MONOCYTES 6 % (0-8); NEUTROPHIL # MANUAL DIFF 5.6 TH/MM3 (1.8-7.7); POLYS (SEG NEUTROPHILS) 50 % (16-70)
[2017-12-03 08:04] LABS: HOWELL-JOLLY BODIES PRESENT (NONE SEEN)
[2017-12-03] MEDS: RESP: BUDESONIDE 0.25 MG/2 ML NEB NEB SCH (08:24)
[2017-12-03] MEDS: RESP: ALBUTEROL 2.5 MG/3 ML NEB (PRN) NEB (08:24)
[2017-12-03] MEDS: METOPROLOL TARTRATE 50 MG TAB PO SCH ×2 (09:00→20:21)
[2017-12-03] MEDS: CHLOROTHIAZIDE SOD 500 MG VIAL IV SCH ×2 (09:00→20:37)
[2017-12-03] MEDS: TIOTROPIUM BROMIDE 18 MCG INH INH SCH (09:00)
[2017-12-03] MEDS: RIFAXIMIN 550 MG TAB PO SCH ×2 (09:00→20:21)
[2017-12-03] MEDS: FAMOTIDINE 20 MG TAB PO SCH ×2 (09:00→20:21)
[2017-12-03] MEDS: SODIUM CHLORIDE 0.9% FLUSH 10 ML FLUSH IV FLUSH SCH ×2 (09:00→20:38)
--- NOTE | 2017-12-03 09:30 | PD.ONC.PN ---
Subjective Subjective Remarks Afebrile overnight. Patient confused, non-verbal. at bedside is concerned she is in pain. per nurse, no blood in stool overnight. Objective Data Date Time Temp Pulse Resp B/P (MAP) Pulse Ox O2 Delivery O2 Flow Rate FiO2 12/03/17 08:30 99 Nasal Cannula 3.00 12/03/17 08:00 98.8 115 14 123/75 (91) 98 12/03/17 08:00 112 12/03/17 06:00 112 12/03/17 04:00 104 12/03/17 04:00 98.8 104 14 118/59 (78) 98 12/03/17 03:12 98 Nasal Cannula 3.00 12/03/17 02:38 14 12/03/17 02:00 107 12/03/17 00:45 99 Nasal Cannula 3.00 12/03/17 00:00 98.6 109 16 140/66 (90) 99 12/03/17 00:00 109 12/02/17 22:00 158 12/02/17 20:53 96 Nasal Cannula 3.00 12/02/17 20:00 101 12/02/17 20:00 98.9 101 14 153/70 (97) 100 12/02/17 18:00 111 12/02/17 18:00 111 18 155/125 (135) 97 12/02/17 17:00 115 12/02/17 17:00 116 20 174/81 (112) 94 12/02/17 16:00 113 12/02/17 16:00 100.7 111 18 152/70 (97) 93 12/02/17 15:00 106 19 133/95 (108) 96 12/02/17 15:00 106 12/02/17 14:47 154 20 247/188 (207) 97 12/02/17 14:47 154 12/02/17 14:31 110 20 219/175 (190) 96 12/02/17 14:00 119 12/02/17 14:00 123 24 210/151 (170) 96 12/02/17 13:00 120 12/02/17 13:00 120 34 142/98 (113) 94 12/02/17 12:00 115 12/02/17 12:00 98.6 118 27 133/79 (97) 94 12/02/17 11:00 109 12/02/17 11:00 109 28 138/68 (91) 93 12/02/17 10:38 107 28 129/68 (88) 93 12/02/17 10:37 99.1 108 28 129/68 93 12/02/17 10:09 98.6 102 24 127/69 95 12/02/17 10:00 101 12/02/17 10:00 102 28 127/69 (88) 96 12/02/17 09:29 98 Nasal Cannula 3.00 12/03/17 12/03/17 12/03/17 07:00 15:00 23:00 Intake Total 50 ml Output Total 375 ml Balance -325 ml Result Diagram: 12/03/17 0537 12/03/17 0537 Laboratory Results Laboratory Tests Test 12/03/17 05:37 White Blood Count 6.8 TH/MM3 Red Blood Count 2.85 MIL/MM3 Hemoglobin 9.5 GM/DL Hematocrit 28.9 % Mean Corpuscular Volume 101.3 FL Mean Corpuscular Hemoglobin 33.3 PG Mean Corpuscular Hemoglobin Concent 32.8 % Red Cell Distribution Width 25.0 % Platelet Count 55 TH/MM3 Mean Platelet Volume 8.4 FL Neutrophils (%) (Auto) 81.9 % Lymphocytes (%) (Auto) 12.4 % Monocytes (%) (Auto) 5.4 % Eosinophils (%) (Auto) 0.1 % Basophils (%) (Auto) 0.2 % Neutrophils # (Auto) 5.6 TH/MM3 Lymphocytes # (Auto) 0.8 TH/MM3 Monocytes # (Auto) 0.4 TH/MM3 Eosinophils # (Auto) 0.0 TH/MM3 Basophils # (Auto) 0.0 TH/MM3 CBC Comment AUTO DIFF Differential Total Cells Counted 100 Neutrophils % (Manual) 50 % Band Neutrophils % 32 % Lymphocytes % 11 % Monocytes % 6 % Basophils % 1 % Neutrophils # (Manual) 5.6 TH/MM3 Differential Comment FINAL DIFF MANUAL Platelet Estimate LOW Platelet Morphology Comment NORMAL Ybarra-Claxton Bodies PRESENT Prothrombin Time 10.6 SEC Prothromb Time International Ratio 1.0 RATIO Blood Urea Nitrogen 71 MG/DL Creatinine 3.53 MG/DL Random Glucose 133 MG/DL Total Protein 6.3 GM/DL Albumin 1.9 GM/DL Calcium Level 6.7 MG/DL Phosphorus Level 6.5 MG/DL Magnesium Level 1.9 MG/DL Alkaline Phosphatase 83 U/L Aspartate Amino Transf (AST/SGOT) 21 U/L Alanine Aminotransferase (ALT/SGPT) 12 U/L Total Bilirubin 0.4 MG/DL Direct Bilirubin 0.1 MG/DL Sodium Level 149 MEQ/L Potassium Level 4.6 MEQ/L Chloride Level 114 MEQ/L Carbon Dioxide Level 21.7 MEQ/L Anion Gap 13 MEQ/L Estimat Glomerular Filtration Rate 13 ML/MIN Protein Corrected Calcium 7.1 MG/DL Ammonia 19 MCMOL/L Triglycerides Level 209 MG/DL Culture Results Microbiology Date/Time Source Procedure Growth Status 11/30/17 16:45 Blood Peripheral Aerobic Blood Culture - Preliminary NO GROWTH IN 2 DAYS Resulted 11/30/17 16:45 Blood Peripheral Anaerobic Blood Culture - Preliminary NO GROWTH IN 2 DAYS Resulted 11/30/17 16:40 Blood Peripheral Aerobic Blood Culture - Preliminary NO GROWTH IN 2 DAYS Resulted 11/30/17 16:40 Blood Peripheral Anaerobic Blood Culture - Preliminary NO GROWTH IN 2 DAYS Resulted Administered Medications Medications (Trade) Dose Ordered Sig/Colton Route PRN Reason Start Time Stop Time Status Last Admin Dose Admin Sodium Chloride (NS Flush) 2 ml UNSCH PRN IV FLUSH FLUSH AFTER USING IV ACCESS 11/17/17 06:45 11/30/17 07:51 Sodium Chloride (NS Flush) 2 ml BID IV FLUSH 11/17/17 09:00 12/02/17 20:58 Acetaminophen (Tylenol) 650 mg Q6H PRN PO FEVER >101F 11/17/17 06:45 11/24/17 08:24 Albuterol/ Ipratropium (Duoneb Neb) 1 ampule Q4HR NEB PRN INH WHEEZING 11/17/17 06:45 12/02/17 09:29 Miscellaneous Information 1 Q361D XX 11/17/17 06:45 11/17/17 06:45 Chlorhexidine Gluconate (Chlorhexidine 2% Cloth) Taper DAILY@04 TOP 11/18/17 04:00 11/14/18 03:59 12/03/17 03:59 Sennosides (Senokot) 17.2 mg Q12H PRN PO Moderate constipation 11/17/17 06:45 11/17/17 09:11 Albuterol Sulfate (Albuterol Neb) 2.5 mg Q4HR NEB PRN NEB SHORTNESS OF BREATH 11/17/17 07:45 12/03/17 08:24 Budesonide (Pulmicort Respule Neb) 0.25 mg DAILY NEB NEB 11/17/17 08:00 12/03/17 08:24 Tiotropium Lester (Spiriva Inh) 18 mcg DAILY INH 11/17/17 09:00 11/30/17 07:50 Diltiazem HCl (Cardizem) 60 mg Q6HR PO 11/20/17 12:00 11/30/17 17:28 Rifaximin (Xifaxan) 550 mg BID PO 11/20/17 21:00 11/30/17 07:51 Potassium Phosphate (K-Phos) 2,000 mg Q4H PRN PO For Phosphorus < 2.5 mg/dL 11/21/17 13:30 11/26/17 12:24 Sodium Phosphate 30 mmol/Sodium Chloride 250 ml @ 42 mls/hr UNSCH PRN IV For Phosphorus < 2.5 mg/dL 11/21/17 13:30 11/26/17 15:07 Hydralazine HCl (Apresoline Inj) 10 mg Q4H PRN IV PUSH SYS BP GREATER THAN 160 MMHG 11/21/17 16:45 12/01/17 09:14 Metoprolol Tartrate (Lopressor Inj) 5 mg Q5M PRN IV PUSH HR>100 11/22/17 00:00 12/02/17 21:54 Hydromorphone HCl (Dilaudid Pf Inj) 0.5 mg Q4H PRN IV pain >5/10 11/22/17 02:45 12/03/17 01:52 Metoprolol Tartrate (Lopressor) 50 mg Q12HR PO 11/22/17 09:00 11/30/17 07:51 Famotidine (Pepcid) 10 mg BID PO 11/24/17 21:00 11/30/17 07:51 Propofol 100 ml @ 2.04 mls/hr TITRATE PRN IV Sedation 11/25/17 12:15 11/27/17 06:11 Fluconazole/ Sodium Chloride 100 ml @ 100 mls/hr Q24H IV 11/25/17 18:00 12/02/17 18:20 Acetaminophen/ Hydrocodone Bitart (Ware 5-325 Mg) 1 tab Q4H PRN PO PAIN 1-4 11/27/17 10:45 11/30/17 17:28 Dextrose (D50w (Vial) Inj) 50 ml UNSCH PRN IV PUSH HYPOGLYCEMIA-SEE COMMENTS 11/29/17 15:45 12/01/17 17:01 Insulin Aspart (NovoLOG SUPPLEMENTAL SCALE) 1 ACHS SLIDING SCALE SQ 11/29/17 17:00 11/29/17 21:18 Methylprednisolone Sodium Succinate (SoluMEDROL INJ) 40 mg Q12HR IV PUSH 12/02/17 09:00 12/02/17 20:58 Chlorothiazide Sodium (Diuril Inj) 250 mg BID IV 12/02/17 09:30 12/02/17 21:05 Piperacillin Sod/ Tazobactam Sod 50 ml @ 100 mls/hr Q6H IV 12/02/17 16:00 12/03/17 03:58 Objective Remarks GENERAL: confused elderly female, supine in bed. SKIN: Warm and dry. HEAD: Normocephalic. EYES: No injection or drainage. NECK: Supple, trachea midline. CARDIOVASCULAR: +S1/S2 RESPIRATORY: anterior cates clear GASTROINTESTINAL: Abdomen soft, winces to palpation of abdomen. EXTREMITIES: No cyanosis NEUROLOGICAL: awake. non-verbal. Assessment/Plan Problem List: (1) Idiopathic thrombocytopenia purpura ICD Codes: D69.3 - Immune thrombocytopenic purpura Status: Acute Plan: 12/03: continue solu-medrol 40mg IV BID. monitor CBC --platelets may be lower due to consumption and antibiotics. --had splenectomy in 2009. --was treated with Nplate in the past with good response. --per , patient's baseline is between 50-70K and she has not required treatment for ITP since spleen removal several years ago. --platelet count has been fluctuating between 40,000-70,000. --no indication to start treatment for the idiopathic thrombocytopenic purpura at this point. (2) Arterial occlusion ICD Codes: I70.90 - Unspecified atherosclerosis Plan: --History of left popliteal arterial occlusion, likely an embolic event. --had embolectomy in September of this year. then started on Pradaxa, but later switched to Xarelto. --presented with abdominal pain and could have ischemic bowel (3) Abdominal pain ICD Codes: R10.9 - Unspecified abdominal pain Status: Resolved Plan: --EGD on 11/25 showed erosive gastritis of the cardia, possibly related to NGT injury. NGT was removed during procedure. --Cx on 11/26 showed severe colitis --presented with acute severe abdominal pain. --CT did not show any bowel obstruction. --Ultrasound also negative for occlusion or stenosis. 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 h/o Chronic anemia. Chronic back pain. Multiple compression fractures. Chronic obstructive pulmonary disease. Hypertension. Left popliteal arterial occlusion. Plan 1. monitor CBC 2. continue to hold anticoagulation. Attending Statement The exam, history, and the medical decision-making described in the above note were completed with the assistance of the mid-level provider. I reviewed and agree with the findings presented. I attest that I had a [id number] encounter with the patient on the same day, and personally performed and documented my assessment and findings in the medical record. Still confused, grimaces when abdomen was palpated. Platelet trended up with steroid and transfusion. No obvious bleeding. Continue to monitor. Problem Qualifiers (1) Abdominal pain: Qualified Codes: R10.84 - Generalized abdominal pain Keke Foster Dec 03, 2017 09:30 Braden Luong MD Dec 03, 2017 14:52
--- NOTE | 2017-12-03 10:05 | HHI.CCPN ---
Subjective Remarks/Hospital Course This is a 67-year-old female that presented to [facility], by private transportation for evaluation of severe abdominal pain. Patient states of the past week she has had constipation so last evening took laxatives ( Senokot) x 3 days, and then today had large bowel movement multiple times with development of severe lower abdominal pain. Patient had subsequently noted some abdominal distention. Patient states her abdomen is exquisitely tender with any movement. Patient also complains of some epigastric pain. 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 No report of hematemesis or coffee-ground emesis. Patient states after bowel movements no report of melena or hematochezia. Patient rates her abdominal pain 10/10 in intensity, without relief of narcotics. The patient was transferred to [facility] , critical care medicine was consulted. Subjective: 11/18: Overnight the patient was known to be oliguric, the patient received approximately 5 L of normal saline , and 500 cc of 5% albumin during the night. NG tube output approximately 700 cc since admission. The patient was noted to be mildly confused this a.m. and progressively worsened. O2 saturation was 100% ,stat ABGs performed, metabolic acidosis with a bicarbonate level of 16. Patient received 2 A of sodium bicarbonate and bicarbonate infusion was initiated. Patient also was noted to be hypocalcemic this a.m. and received 2 g of calcium gluconate. The patient was started on Argatroban infusion after discussion with Dr. Howell, plan for endoscopy tomorrow . The patient was previously on Xarelto for DVT prophylaxis.Repeat labs performed early this afternoon revealed hemoglobin of 6.7, 1 unit of PRBC being transfused. She required restraints, for patient safety. Repeat labs pending this evening posttransfusion. 11/19: Afebrile. Last evening the patient became more confused metabolic acidosis, placed on sodium bicarbonate infusion, now corrected. Patient alert, following commands. Sodium bicarbonate infusion discontinued. Patient noted to be severely anemic with hemoglobin of 6.2 received 1 unit of PRBCs, last hemoglobin 9.4, stable. Continued serial monitoring of H&H labs pending this a.m.. Patient noted to have improvement in urine output overnight. EGD placed on hold. 11/20 No events overnight. Afebrile, on 3L oxygen. 11/21 Patient is on 2L oxygen. MRI brain last night showed no acute abnormalities. Afebrile. Lethargic 11/22 Patient is on 3L oxygen. Renal function is improving with Cr: 1.47 from 1.77. On Argatroban drip. 11/23 No events overnight, On Argatroban drip. Cr: 1.16 from 1.47. 11/24 Patient is more awake, off Argatroban drip, T:100.3. 1u PRBC ordered for Hgb 6.7 this morning. 11/25 Patient is on 50% VM with good sats. Afebrile. 11/26: Remains orally intubated on mechanical ventilation, awaiting colonoscopy. 11/27: Arousable off sedation, orally intubated on mechanical ventilation. Colonoscopy showed colitis and pseudomembranes yesterday biopsies pending. Stool for C. difficile ordered. 11/28: Extubated yesterday tolerating nasal cannula. Stool for C. difficile negative 12/01: Critical care reconsulted for worsening respiratory status and sigmoidoscopy showing worsening colitis with concern for ischemic colitis. When I evaluated the patient she was on BiPAP with full facemask. She had just finished a sigmoidoscopy earlier which revealed diffuse erythematous mucosa with rectal ulcers with question of ischemia. She has continued to have low platelets requiring platelet transfusions for her ITP. GI has consult general surgery in view of suspected worsening ischemic colitis. Patient is also developing worsening renal function. She is awake and grimaces significantly on examining her belly. Otherwise she is not very oriented to participate in discussion regarding plan of care. 12/02: T-max 99.7. The patient remains encephalopathic. The patient remained on BiPAP throughout the night without any difficulties will wean back to nasal cannula. Platelet count continues to decrease from 22-> 17, despite being transfused platelets yesterday. Concern for protection of airway with meals patient will be started on PPN. Plan for angiogram this a.m.. The patient continues to have increasing creatinine and decreasing urinary output in the last 24 hours. Family meeting scheduled with palliative care team tentatively today. 12/03: Afebrile. No change in neurological status overnight. Post meeting with the , palliative care team general surgery and nephrology decision has been made to wait another 24 hours to see if there is a change/improvement in patient's status. If no improvement hospice to be consulted tomorrow 12/04/17. The patient remains NPO, will initiate PPN at a low infusion rate for nutrition. Discussed extensively with Dr. Box yesterday, discussing the risk versus benefit of any type of surgical intervention. Due to the patient's multiple comorbidities again thought I had discussion with patient's , and plan is to wait another 24 hours to determine if there is no improvement, if not will transition to comfort care under hospice services. Objective Vital Signs Date Time Temp Pulse Resp B/P (MAP) Pulse Ox O2 Delivery O2 Flow Rate FiO2 12/03/17 08:30 99 Nasal Cannula 3.00 12/03/17 08:00 98.8 115 14 123/75 (91) 12/02/17 03:34 40 Intake and Output 12/03/17 12/03/17 12/04/17 08:00 16:00 00:00 Intake Total 50 ml Output Total 375 ml Balance -325 ml Result Diagram: 12/03/17 0537 12/03/17 0537 Imaging Last Impressions Renal Ultrasound 12/01/17 0000 Signed Impressions: Service Date/Time: Friday, December 01, 2017 21:49 - CONCLUSION: Normal examination. Anuel Suazo MD Chest X-Ray 12/01/17 0000 Signed Impressions: Service Date/Time: Friday, December 01, 2017 19:48 - CONCLUSION: 1. Basilar airspace disease and pleural effusions similar to November 30. Roby Brito MD Head CT 11/30/17 0000 Signed Impressions: Service Date/Time: Thursday, November 30, 2017 12:15 - CONCLUSION: Negative noncontrast head CT. Ousmane Aguilar MD Abdomen X-Ray 11/23/17 0000 Signed Impressions: Service Date/Time: Thursday, November 23, 2017 06:14 - CONCLUSION: Nonobstructive bowel gas pattern without significant change. Ousmane Aguilar MD Brain MRI 11/20/17 7829 Signed Impressions: Service Date/Time: October 20:54 - CONCLUSION: 1. No acute intracranial abnormality. Right-sided mastoid air cell disease. No recent infarct, mass effect or shift. Roby Brito MD Lower Extremity Ultrasound 11/20/17 0000 Signed Impressions: Service Date/Time: October 11:48 - CONCLUSION: 1. No evidence of DVT. 2. Small right Stovall's cyst. Keven Lake MD Chest CT 11/19/17 0000 Signed Impressions: Service Date/Time: Sunday, November 19, 2017 17:10 - CONCLUSION: Minimal consolidative changes as above Small pleural effusions. Luis A Castillo MD FACR Abdomen/Pelvis CT 11/19/17 0000 Signed Impressions: Service Date/Time: Sunday, November 19, 2017 17:10 - CONCLUSION: Trace ascites or subcapsular fluid around liver Prominent gallbladder Luis A Castillo MD FACR Abdomen Ultrasound 11/17/17 0000 Signed Impressions: Service Date/Time: Friday, November 17, 2017 08:01 - CONCLUSION: Negative for occlusion or significant stenosis. Luis A Castillo MD FACR Last [address] 11/30/17 0000 Signed Impressions: Service Date/Time: Thursday, November 30, 2017 12:15 - CONCLUSION: Negative noncontrast head CT. Ousmane Aguilar MD Chest X-Ray 11/30/17 0000 Signed Impressions: Service Date/Time: Thursday, November 30, 2017 17:02 - CONCLUSION: Bibasilar increased density characteristic of underlying air space disease and bilateral effusions. Otherwise stable chest status post extubation. COPD. Fernando Shaver MD Last Impressions Chest X-Ray 11/23/17 0000 Signed Impressions: Service Date/Time: Thursday, November 23, 2017 10:56 - CONCLUSION: Small right pleural effusion. Scattered bibasilar atelectasis is noted. Swapnil aSldaña MD Abdomen X-Ray 11/23/17 0000 Signed Impressions: Service Date/Time: Thursday, November 23, 2017 06:14 - CONCLUSION: Nonobstructive bowel gas pattern without significant change. Ousmane Aguilar MD Brain MRI 11/20/17 1409 Signed Impressions: Service Date/Time: October 20:54 - CONCLUSION: 1. No acute intracranial abnormality. Right-sided mastoid air cell disease. No recent infarct, mass effect or shift. Roby Brito MD Lower Extremity Ultrasound 11/20/17 0000 Signed Impressions: Service Date/Time: October 11:48 - CONCLUSION: 1. No evidence of DVT. 2. Small right Stovall's cyst. Keven Lake MD Head CT 11/20/17 0000 Signed Impressions: Service Date/Time: October 11:29 - CONCLUSION: 1. Focal decreased attenuation involving the right armin consistent with lacunar infarct or ischemic change. 2. No acute hemorrhage, midline shift or extra-axial fluid collections. 3. Small fluid level within the right sphenoid sinus. Swapnil Saldaña MD Chest CT 11/19/17 0000 Signed Impressions: Service Date/Time: Sunday, November 19, 2017 17:10 - CONCLUSION: Minimal consolidative changes as above Small pleural effusions. Luis A Castillo MD FACR Abdomen/Pelvis CT 11/19/17 0000 Signed Impressions: Service Date/Time: Sunday, November 19, 2017 17:10 - CONCLUSION: Trace ascites or subcapsular fluid around liver Prominent gallbladder Luis A Castillo MD FACR Abdomen Ultrasound 11/17/17 0000 Signed Impressions: Service Date/Time: Friday, November 17, 2017 08:01 - CONCLUSION: Negative for occlusion or significant stenosis. Luis A Castillo MD FACR Procedures EGD/ colonoscopy. 12/01 Flex Sigmoidoscopy Objective Remarks GENERAL: This is a pale thin female lying in bed on BiPAP with full facemask SKIN: Warm and dry. Pale HEAD: Atraumatic. Normocephalic. EYES: Pupils equal and round. No scleral icterus. No injection or drainage. ENT: No nasal bleeding or discharge. Mucous membranes pink and moist. NECK: Trachea midline. No JVD. CARDIOVASCULAR: Tachycardic S1-S2 irregularly irregular RESPIRATORY: Air entry decreased bilaterally at bases, clear to auscultation. GASTROINTESTINAL: Abdomen soft, diffuse tenderness with guarding. Bowel sounds present MUSCULOSKELETAL: Extremities Warm bilaterally, bilateral 3+ peripheral edema NEUROLOGICAL: Drowsy, easily arousable, follows occasional commands though disoriented. Grossly nonfocal Date of Insertion: Dec 01, 2017 A/P Problem List: (1) Chronic anemia ICD Code: D64.9 - Anemia, unspecified Status: Acute (2) Idiopathic thrombocytopenia purpura ICD Code: D69.3 - Immune thrombocytopenic purpura Status: Acute (3) COPD (chronic obstructive pulmonary disease) ICD Code: J44.9 - Chronic obstructive pulmonary disease, unspecified Status: Acute (4) NISHANT (acute kidney injury) ICD Code: N17.9 - Acute kidney failure, unspecified Status: Acute (5) Chronic back pain ICD Code: M54.9 - Dorsalgia, unspecified; G89.29 - Other chronic pain Status: Acute (6) Hypertension ICD Code: I10 - Essential (primary) hypertension Status: Acute (7) Acute and chronic respiratory failure with hypoxia ICD Code: J96.21 - Acute and chronic respiratory failure with hypoxia Status: Acute (8) Abdominal pain ICD Code: R10.9 - Unspecified abdominal pain Status: Resolved (9) Metabolic acidemia ICD Code: E87.2 - Acidosis Status: Acute (10) Altered mental status, unspecified ICD Code: R41.82 - Altered mental status, unspecified (11) Hypoalbuminemia due to protein-calorie malnutrition ICD Code: E46 - Unspecified protein-calorie malnutrition Status: Acute (12) Electrolyte abnormality ICD Code: E87.8 - Other disorders of electrolyte and fluid balance, not elsewhere classified Status: Acute Assessment and Plan Neurologic: Chronic back pain 2/2 compression fractures Altered mental status Neurochecks per ICU protocol MRI brain 11/21 no acute abnormalities 11/20 EEG: bihemispheric slowing. There are some intermixed slow sharp waves, but no distinct paroxysmal discharges. The pattern suggests severe bilateral abnormalities, either metabolic or structural Neuro is following- Dr. Hyman Dilaudid 0.5 mg every 4 hours when necessary for breakthrough pain scale 7-10 Tylenol 650 mg every 6 hours when necessary for pain or temperature greater than 100.5 Patient on home dose [place] for pain control, resume following extubation if required. 12/03 Ammonia level- 18 Respiratory: COPD Asthma Home O2 dependency Acute respiratory failure Extubated on 11/27, currently back on BiPAP Home O2 dependency- 3LPM Continue DuoNeb, Spiriva and budesonide- home medications Aspiration precautions Cardiovascular: Hypertension Sinus tachycardia Paroxysmal A. fib. On Cardizem 60mg Q6, Lopressor 50mg Q12. Keep MAP>65mmHg. Telemetry -predominantly ST (100-105) Renal: NISHANT Monitor renal function, I/O's, electrolytes replacement as needed. Was receiving IV fluids. Nephrology following -creatinine 2.3->2.7 today, UOP decreased 900cc/24 hours FEN/GI: GI bleed Suspected ischemic colitis Elevated LFT's s/p EGD 11/25 showed erosive gastritis. Colonoscopy done on 11/26 revealed colitis with possible pseudomembranes, biopsy sent. Stool for C. difficile negative. On PPN/Iipids-plan to titrate off, advance by mouth intake which is okay with GI , GI and surgery are following KUB abdomen 11/23: Non obstructive bowel gas pattern CT abd/pelvis: Trace ascites or subcapsular fluid around liver Prominent gallbladder US abdomen: Negative for occlusion or significant stenosis. rectal tube in place KUB 11/21 showed no obstruction. Sigmoidoscopy done on 12/01 showed diffuse erythematous mucosa with rectal ulcers with question of worsening colitis On Rifaximin, Lactulose - monitor ammonia level ( 29) Continue n.p.o. at this time 12/03: Begin TPN ID: Funguria Pseudomembranes on colonoscopy with colitis Continue abx per ID monitor for signs of infections ( Fever, WBC). Stool for C. difficile negative BC 11/16:NGTD, pancultured 11/23 ID is following. Discussed with Dr. Angulo. She is broadening antibiotic coverage to IV Zosyn in view of suspected ischemic colitis on sigmoidoscopy. Gen. surgery consulted for further evaluation Diflucan continued Heme History of DVT 09/2017 Chronic ITP Thrombocytopenia Hematology following-Dr. Luong. s/p transfusion1 u PRBC 11/24 receiving platelet transfusions per hematology 11/17, 11/18 Transfused 1u PRBC Platelet count normally 40-70,000- Transfused 12/01 and 12/02 12/02 Plt count 22->17,000 today despite transfusion Patient had left popliteal embolectomy 09/2017, Dr. Mixon and was placed on Pradaxa, patient under the care of senior security engineer Dr. Reyna. 11/18 Patient takes Xarelto 20mg/d, Argatroban held per Heme 11/28 Doppler US LE negative for DVT Endocrine: Hyperglycemia of critical illness Glucose monitoring per ICU [id number] regimen -- SSI Prophylaxis: GI Prophylaxis Famotidine BID DVT Prophylaxis -- SCDs Patient's home med include Xarelto. Argatroban stopped per Heme on 11/28 Lines: Peripheral IVs 2. Prognosis appears extremely poor. 12/01 Following discussions with palliative care, patient's has decided to make her DNR/DNI status. He wishes to continue aggressive measures 12/03 : Extensive discussion with patient's , plan for meeting with hospice in a.m. if no improvement in condition today . PPN initiated Condition critical. my billing statement This patient remains critically ill with one or more organ systems which are or may become a threat to life. I have spent in excess of 38 minutes discontinuously in the care and management of this patient. This time is exclusive of procedures, and includes, but is not limited to, evaluation of the patient, review of the medical record, discussions with family, consultants, nursing staff, or respiratory therapy, and documentation in the medical record. Physician Glenis Flores Problem Qualifiers (1) Abdominal pain: Qualified Codes: R10.84 - Generalized abdominal pain Glenis Flores MD Dec 03, 2017 10:05
[2017-12-03] MEDS: methylPREDNISolone SOD SUCC 40 MG/1 ML VIAL IV PUSH SCH ×2 (10:10→20:37)
--- NOTE | 2017-12-03 10:28 | HHI.NPPN ---
Subjective Renal Failure: Acute Interval History Renal function is worse. She is on nasal cannula, has anasarca, is not responding. Eyes are open. at bedside informs me she will be transferred to hospice tomorrow. (Laura Wood) Review of Systems General General Remarks unable to assess (Laura Wood) Objective Data Data Vital Signs Date Time Temp Pulse Resp B/P (MAP) Pulse Ox O2 Delivery O2 Flow Rate FiO2 12/03/17 08:30 99 Nasal Cannula 3.00 12/03/17 08:00 98.8 115 14 123/75 (91) 98 12/03/17 08:00 112 12/03/17 06:00 112 12/03/17 04:00 104 12/03/17 04:00 98.8 104 14 118/59 (78) 98 12/03/17 03:12 98 Nasal Cannula 3.00 12/03/17 02:38 14 12/03/17 02:00 107 12/03/17 00:45 99 Nasal Cannula 3.00 12/03/17 00:00 98.6 109 16 140/66 (90) 99 12/03/17 00:00 109 12/02/17 22:00 158 12/02/17 20:53 96 Nasal Cannula 3.00 12/02/17 20:00 101 12/02/17 20:00 98.9 101 14 153/70 (97) 100 12/02/17 18:00 111 12/02/17 18:00 111 18 155/125 (135) 97 12/02/17 17:00 115 12/02/17 17:00 116 20 174/81 (112) 94 12/02/17 16:00 113 12/02/17 16:00 100.7 111 18 152/70 (97) 93 12/02/17 15:00 106 19 133/95 (108) 96 12/02/17 15:00 106 12/02/17 14:47 154 20 247/188 (207) 97 12/02/17 14:47 154 12/02/17 14:31 110 20 219/175 (190) 96 12/02/17 14:00 119 12/02/17 14:00 123 24 210/151 (170) 96 12/02/17 13:00 120 12/02/17 13:00 120 34 142/98 (113) 94 12/02/17 12:00 115 12/02/17 12:00 98.6 118 27 133/79 (97) 94 12/02/17 11:00 109 12/02/17 11:00 109 28 138/68 (91) 93 12/02/17 10:38 107 28 129/68 (88) 93 12/02/17 10:37 99.1 108 28 129/68 93 (Laura Wood) -: 12/03/17 0537 12/03/17 0537 Imaging Last 72 hours Impressions Renal Ultrasound 12/01/17 0000 Signed Impressions: Service Date/Time: Friday, December 01, 2017 21:49 - CONCLUSION: Normal examination. Anuel Suazo MD Chest X-Ray 12/01/17 0000 Signed Impressions: Service Date/Time: Friday, December 01, 2017 19:48 - CONCLUSION: 1. Basilar airspace disease and pleural effusions similar to November 30. Roby Brito MD Tubes & Lines: [place] (Laura Wood) Physical Exam General Appearance: Well Developed, Obese Appearance Remarks some tremors noted (Laura Wood) Throat Throat Exam: Oral Mucosa [place] & Moist (Laura Wood) Pulmonary Resp Exam: Breath Sounds Equal, No Distress, Crackles, Diminished Breath Sounds (Laura Wood) Cardiology CV Exam: Normal Sinus Rhythm, Good Perfusion, Tachycardia (Laura Wood) Gastrointestinal/Abdomen GI Exam: Soft, Non-Tender, Bowel Sounds Present, Distended (Laura Wood) Musculoskeletal MS Exam: Joints Intact, Normal Tone, Unable to Ambulate (Laura Wood) Integumentary Skin Exam: Warm, Dry, Intact (Laura Wood) Extremeties Extremities Exam: Pedal Pulses Palpable, Moderate Edema (Laura Wood) Neurologic Neuro Exam: Awake Neuro Remarks tremors (Laura Wood) Assessment/Plan Discussed Condition With: Patient, Spouse Assessment Summary: NISHANT/Acute Renal Failure Electrolyte Assessment: Hypernatremia Problem List: (1) NISHANT (acute kidney injury) ICD Codes: N17.9 - Acute kidney failure, unspecified Status: Acute Plan: She has normal renal function at baseline NISHANT initially due to prerenal azotemia. Renal function had improved and then has gotten worse since the 26 of November Looking back she was hypotensive on and . Most likely has suffered renal hypoperfusion. Worsening renal function, however she is non oliguric, monitor output On Diuril, continue for now Pt will be transferred to hospice tomorrow We will sign off at this time (2) Abdominal pain ICD Codes: R10.9 - Unspecified abdominal pain Status: Resolved Plan: With ischemic colitis On IV fluconazole and zosyn. (3) Hypertension ICD Codes: I10 - Essential (primary) hypertension Status: Acute Plan: Continue medications as ordered Noted tachycardia (4) Idiopathic thrombocytopenia purpura ICD Codes: D69.3 - Immune thrombocytopenic purpura Status: Acute Plan: Platelets transfused yesterday (Laura Wood) Plan patient was seen and examined. Agree with above assessment and plan. (Monty Holt MD) Problem Qualifiers (1) Abdominal pain: Qualified Codes: R10.84 - Generalized abdominal pain Laura Wood Dec 03, 2017 10:28 Monty Holt MD Dec 04, 2017 10:12
--- NOTE | 2017-12-03 11:20 | HHI.GIFU ---
Subjective Remarks Resting in bed, at bedside. He is opting for hospice transition. (Karime Montano) Objective Vitals I&O Vital Signs Date Time Temp Pulse Resp B/P (MAP) Pulse Ox O2 Delivery O2 Flow Rate FiO2 12/03/17 08:30 99 Nasal Cannula 3.00 12/03/17 08:00 98.8 115 14 123/75 (91) 98 12/03/17 08:00 112 12/03/17 06:00 112 12/03/17 04:00 104 12/03/17 04:00 98.8 104 14 118/59 (78) 98 12/03/17 03:12 98 Nasal Cannula 3.00 12/03/17 02:38 14 12/03/17 02:00 107 12/03/17 00:45 99 Nasal Cannula 3.00 12/03/17 00:00 98.6 109 16 140/66 (90) 99 12/03/17 00:00 109 12/02/17 22:00 158 12/02/17 20:53 96 Nasal Cannula 3.00 12/02/17 20:00 101 12/02/17 20:00 98.9 101 14 153/70 (97) 100 12/02/17 18:00 111 12/02/17 18:00 111 18 155/125 (135) 97 12/02/17 17:00 115 12/02/17 17:00 116 20 174/81 (112) 94 12/02/17 16:00 113 12/02/17 16:00 100.7 111 18 152/70 (97) 93 12/02/17 15:00 106 19 133/95 (108) 96 12/02/17 15:00 106 12/02/17 14:47 154 20 247/188 (207) 97 12/02/17 14:47 154 12/02/17 14:31 110 20 219/175 (190) 96 12/02/17 14:00 119 12/02/17 14:00 123 24 210/151 (170) 96 12/02/17 13:00 120 12/02/17 13:00 120 34 142/98 (113) 94 12/02/17 12:00 115 12/02/17 12:00 98.6 118 27 133/79 (97) 94 I/O 12/02/17 12/02/17 12/02/17 12/03/17 12/03/17 12/03/17 07:00 15:00 23:00 07:00 15:00 23:00 Intake Total 50 ml 289 ml 100 ml 50 ml Output Total 500 ml 400 ml 375 ml Balance -450 ml 289 ml -300 ml -325 ml Intake Oral 0 ml 0 ml 0 ml IV Total 50 ml 50 ml 100 ml 50 ml Platelets 239 ml Output Urine Total 500 ml 400 ml 375 ml # Bowel Movements 0 0 1 Laboratory Laboratory Tests Test 12/03/17 05:37 White Blood Count 6.8 Red Blood Count 2.85 Hemoglobin 9.5 Hematocrit 28.9 Mean Corpuscular Volume 101.3 Mean Corpuscular Hemoglobin 33.3 Mean Corpuscular Hemoglobin Concent 32.8 Red Cell Distribution Width 25.0 Platelet Count 55 Mean Platelet Volume 8.4 Neutrophils (%) (Auto) 81.9 Lymphocytes (%) (Auto) 12.4 Monocytes (%) (Auto) 5.4 Eosinophils (%) (Auto) 0.1 Basophils (%) (Auto) 0.2 Neutrophils # (Auto) 5.6 Lymphocytes # (Auto) 0.8 Monocytes # (Auto) 0.4 Eosinophils # (Auto) 0.0 Basophils # (Auto) 0.0 CBC Comment AUTO DIFF Differential Total Cells Counted 100 Neutrophils % (Manual) 50 Band Neutrophils % 32 Lymphocytes % 11 Monocytes % 6 Basophils % 1 Neutrophils # (Manual) 5.6 Differential Comment FINAL DIFF MANUAL Platelet Estimate LOW Platelet Morphology Comment NORMAL Ybarra-[place] Bodies PRESENT Prothrombin Time 10.6 Prothromb Time International Ratio 1.0 Blood Urea Nitrogen 71 Creatinine 3.53 Random Glucose 133 Total Protein 6.3 Albumin 1.9 Calcium Level 6.7 Phosphorus Level 6.5 Magnesium Level 1.9 Alkaline Phosphatase 83 Aspartate Amino Transf (AST/SGOT) 21 Alanine Aminotransferase (ALT/SGPT) 12 Total Bilirubin 0.4 Direct Bilirubin 0.1 Sodium Level 149 Potassium Level 4.6 Chloride Level 114 Carbon Dioxide Level 21.7 Anion Gap 13 Estimat Glomerular Filtration Rate 13 Protein Corrected Calcium 7.1 Ammonia 19 Triglycerides Level 209 Date/Time Source Procedure Growth Status 11/30/17 16:45 Blood Peripheral Aerobic Blood Culture - Preliminary NO GROWTH IN 3 DAYS Resulted 11/30/17 16:45 Blood Peripheral Anaerobic Blood Culture - Preliminary NO GROWTH IN 3 DAYS Resulted 11/18/17 14:25 Stool Stool Stool Occult Blood (KIM) - Final HEMOCCULT POSITIVE Complete 11/25/17 17:45 Sputum Endotracheal Gram Stain - Final Complete 11/25/17 17:45 Sputum Endotracheal Sputum Culture - Final HEAVY GROWTH NORMAL RESPIRATORY [place] Complete 11/23/17 13:45 Urine Clean Catch Urine Culture - Final Swati Glabrata Complete Imaging Last Impressions Renal Ultrasound 12/01/17 0000 Signed Impressions: Service Date/Time: Friday, December 01, 2017 21:49 - CONCLUSION: Normal examination. Anuel Suazo MD Chest X-Ray 12/01/17 0000 Signed Impressions: Service Date/Time: Friday, December 01, 2017 19:48 - CONCLUSION: 1. Basilar airspace disease and pleural effusions similar to November 30. Roby Brito MD Head CT 11/30/17 0000 Signed Impressions: Service Date/Time: Thursday, November 30, 2017 12:15 - CONCLUSION: Negative noncontrast head CT. Ousmane Aguilar MD Abdomen X-Ray 11/23/17 0000 Signed Impressions: Service Date/Time: Thursday, November 23, 2017 06:14 - CONCLUSION: Nonobstructive bowel gas pattern without significant change. Ousmane Aguilar MD Brain MRI 11/20/17 1409 Signed Impressions: Service Date/Time: October 20:54 - CONCLUSION: 1. No acute intracranial abnormality. Right-sided mastoid air cell disease. No recent infarct, mass effect or shift. Roby Brito MD Lower Extremity Ultrasound 11/20/17 0000 Signed Impressions: Service Date/Time: October 11:48 - CONCLUSION: 1. No evidence of DVT. 2. Small right Stovall's cyst. Keven Lake MD Chest CT 11/19/17 0000 Signed Impressions: Service Date/Time: Sunday, November 19, 2017 17:10 - CONCLUSION: Minimal consolidative changes as above Small pleural effusions. Luis A Castillo MD FACR Abdomen/Pelvis CT 11/19/17 0000 Signed Impressions: Service Date/Time: Sunday, November 19, 2017 17:10 - CONCLUSION: Trace ascites or subcapsular fluid around liver Prominent gallbladder Luis A Castillo MD FACR Abdomen Ultrasound 11/17/17 0000 Signed Impressions: Service Date/Time: Friday, November 17, 2017 08:01 - CONCLUSION: Negative for occlusion or significant stenosis. Luis A Castillo MD FACR Physical Exam HEENT: Normocephalic; atraumatic CHEST: Irregular respirations, tachypneic CARDIAC: Regular rate and rhythm ABDOMEN: Soft, nondistended, seems to be tender to palpation, bowel sounds active EXTREMITIES: BUE and BLE edema SKIN: Pale; no rash; no jaundice. DISTRIBUTION AGENT: Awake, nonverbal (Karime Montano) Assessment and Plan Assessment: (1) Chronic anemia ICD Codes: D64.9 - Anemia, unspecified Status: Acute (2) Abdominal pain ICD Codes: R10.9 - Unspecified abdominal pain Status: Resolved Plan Abdominal pain and distention- KUB (11/17) --> No signs of obstruction, ileus or perforation. US abd SMA/Celiac --> Negative for occlusion or significant stenosis. - Anemia- macrocytic- H/H dropped to 6.7/20.2 yesterday- received one unit PRBCs- currently 05/26.9. No signs of GIB via NGT or rectal output. 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 Ammonia now WNL. Unclear cause of metabolic encephalopathy. Anemia and thrombocytopenia. Drop in H/H and platelets now 17. Not stable for endoscopic procedures. SBFT ordered, pt to agitated for procedure. wanting to hold off on this at this time Liver DIAZ pending, serum mercury, Vit D A C, serum copper Reexamined at 11:28 Pt is now alert and oriented, complaining of pain but can not localize it. Per RN reports of dark red blood through NGT. Palliative care consult pending now that pt is alert and oriented and able to participate in health care decisions. Remains at very high risk for procedures and her wishes should be addressed, likely to require intubation for endoscopic procedures. Platelet replacement per hematology. SBFT (11/23) --> Nonobstructive bowel gas pattern without significant change. (11/27) S/P colonoscopy yesterday for reports of maroon colored stool. --> Severe colitis possibly secondary to C Diff colitis. Rectal ulcers etiology unclear. Descent colon and rectal biopsies. Pt with rectal bag with no stool at this time. RN aware to send stool for C. Diff testing. H/H 11.2/32.4 S/P 1 U PRBCs yesterday. Platelet tx per Dr. Luong. (12/02) Pt S/P flex sigmoidoscopy yesterday --> Multiple ulcers ranging between 3-5 mm in size were found in the rectum. Diffuse abnormal mucosa was found in the sigmoid colon, mucosa was congested and erythematous, internal and external hemorrhoids. H/H continues to trend down. Despite 1 U platelets yesterday, platelets dropped to 17 this morning, another unit was transfused this morning. No BM documented since procedure yesterday. IR consult for angiogram with CO2 for mesenteric ischemia pending. Renal function continues to decrease. Electrolyte imbalance noted. 12/03/17 renal function worsening. opting for transition to hospice. per IR no invasive interventions at this time. Per GS poor surgical candidate. palliative care following Plan: - await palliative care fu - pt transitioning to hospice - monitor labs - supportive care - GI will sign off. please reconsult if needed. Pt has been seen and examined by myself and Dr. Olivares and this note is written on his behalf (Karime Montano) Physician Comments Seen and examined with TUBE FILLER, appreciate Dr. Castillo and surgery inputs. Agree with Hospice care. Gi will sign off. Thank you (Stefan Olivares MD) Problem Qualifiers (1) Abdominal pain: Qualified Codes: R10.84 - Generalized abdominal pain Karime Montano Dec 03, 2017 11:20 Stefan Olivares MD Dec 03, 2017 13:05
[2017-12-03] MEDS: CALCIUM ACETATE 667 MG CAP PO SCH ×2 (12:53→17:49)
--- NOTE | 2017-12-03 13:05 | HHI.PR ---
cc: Eriberto Box MD Subjective Subjective Notes Lethargic Objective Vitals/I&O Vital Signs Date Time Temp Pulse Resp B/P (MAP) Pulse Ox O2 Delivery O2 Flow Rate FiO2 12/03/17 12:00 112 12/03/17 12:00 98.5 14 143/67 (92) 98 12/03/17 08:30 Nasal Cannula 3.00 12/02/17 03:34 40 Labs Laboratory Tests Test 12/03/17 05:37 White Blood Count 6.8 Red Blood Count 2.85 Hemoglobin 9.5 Hematocrit 28.9 Mean Corpuscular Volume 101.3 Mean Corpuscular Hemoglobin 33.3 Mean Corpuscular Hemoglobin Concent 32.8 Red Cell Distribution Width 25.0 Platelet Count 55 Mean Platelet Volume 8.4 Neutrophils (%) (Auto) 81.9 Lymphocytes (%) (Auto) 12.4 Monocytes (%) (Auto) 5.4 Eosinophils (%) (Auto) 0.1 Basophils (%) (Auto) 0.2 Neutrophils # (Auto) 5.6 Lymphocytes # (Auto) 0.8 Monocytes # (Auto) 0.4 Eosinophils # (Auto) 0.0 Basophils # (Auto) 0.0 CBC Comment AUTO DIFF Differential Total Cells Counted 100 Neutrophils % (Manual) 50 Band Neutrophils % 32 Lymphocytes % 11 Monocytes % 6 Basophils % 1 Neutrophils # (Manual) 5.6 Differential Comment FINAL DIFF MANUAL Platelet Estimate LOW Platelet Morphology Comment NORMAL [place]bar[place] Bodies PRESENT Prothrombin Time 10.6 Prothromb Time International Ratio 1.0 Blood Urea Nitrogen 71 Creatinine 3.53 Random Glucose 133 Total Protein 6.3 Albumin 1.9 Calcium Level 6.7 Phosphorus Level 6.5 Magnesium Level 1.9 Alkaline Phosphatase 83 Aspartate Amino Transf (AST/SGOT) 21 Alanine Aminotransferase (ALT/SGPT) 12 Total Bilirubin 0.4 Direct Bilirubin 0.1 Sodium Level 149 Potassium Level 4.6 Chloride Level 114 Carbon Dioxide Level 21.7 Anion Gap 13 Estimat Glomerular Filtration Rate 13 Protein Corrected Calcium 7.1 Ammonia 19 Triglycerides Level 209 Date/Time Source Procedure Growth Status 11/30/17 16:45 Blood Peripheral Aerobic Blood Culture - Preliminary NO GROWTH IN 3 DAYS Resulted 11/30/17 16:45 Blood Peripheral Anaerobic Blood Culture - Preliminary NO GROWTH IN 3 DAYS Resulted 11/18/17 14:25 Stool Stool Stool Occult Blood (KIM) - Final HEMOCCULT POSITIVE Complete 11/25/17 17:45 Sputum Endotracheal Gram Stain - Final Complete 11/25/17 17:45 Sputum Endotracheal Sputum Culture - Final HEAVY GROWTH NORMAL RESPIRATORY [place] Complete 11/23/17 13:45 Urine Clean Catch Urine Culture - Final Swati Glabrata Complete Radiology Last 48 hours Impressions Abdomen/Pelvis CT 11/17/17 0000 Signed Impressions: Service Date/Time: Friday, November 17, 2017 01:08 - CONCLUSION: 1. Distended stomach. 2. Fluid distended colon without dilated loops of small bowel. Víctor Bates MD Abdomen X-Ray 11/17/17 0000 Signed Impressions: Service Date/Time: Friday, November 17, 2017 07:37 - CONCLUSION: No bowel obstruction, ileus or perforation. Swapnil Saldaña MD Abdomen Ultrasound 11/17/17 0000 Signed Impressions: Service Date/Time: Friday, November 17, 2017 08:01 - CONCLUSION: Negative for occlusion or significant stenosis. Luis A Castillo MD FACR Chest X-Ray 11/16/17 2326 Signed Impressions: Service Date/Time: Thursday, November 16, 2017 23:51 - CONCLUSION: Hyperaerated lungs. No infiltrates seen. Víctor Bates MD Cardiovascular: Regular Lungs: Clear Abdomen: Other (mildly tender to palpation ) Extremities: No edema A/P Assessment and Plan 67 year old female with abdominal pain; lactic acidosis -s/p flex sigmoidoscopy shows ulcers; diffuse abnormal mucosa; ? ischemic colitis -CCM following; BiPAP off for now; stable on NC -ID following--- Zosyn; on Diflucan -Patient poor surgical candidate; would be appropriate to transition to [facility] if family desires -Palliative Care following--- Patient now DNR/DNI; family meeting pending today ; possible Hospice Consultation Nicky NeilP/Glass Cutter Hand RUBY ON RAILS ENGINEER Dec 03, 2017 13:05
--- NOTE | 2017-12-03 14:33 | HHI.PR ---
Addendum to Inpatient Note Additional Information pt is going to go to hospice dw Dr Mark singh s/o Mary Anne Angulo MD Dec 03, 2017 14:33
[2017-12-03] MEDS: FLUCONAZOLE 200 MG PREMIX BAG 100 ML IV SCH (17:48)
[2017-12-03] MEDS ORDERED: CLINIMIX 4.25/5 (Cust.Renal Periph) 1000 mL- </= 42 mls/hr IV SCH ×8 (20:00)
[2017-12-04] VITALS (11 sets, daily range): BP systolic 110–139; BP diastolic 55–84; PULSE 109–113; RESP 13–32; TEMP 97.9–99.1; O2SAT 97–100
[2017-12-04] MEDS: PIPERACIL-TAZO 2.25 GM PREMIX 50 ML IV SCH ×2 (00:23→10:00)
[2017-12-04] MEDS: HYDROmorphone HCL PF 2 MG/ML VIAL IV PRN ×3 (00:27→10:10)
--- NOTE | 2017-12-04 07:43 | HHI.CCPN ---
Subjective Remarks/Hospital Course This is a 67-year-old female that presented to [facility], by private transportation for evaluation of severe abdominal pain. Patient states of the past week she has had constipation so last evening took laxatives ( Senokot) x 3 days, and then today had large bowel movement multiple times with development of severe lower abdominal pain. Patient had subsequently noted some abdominal distention. Patient states her abdomen is exquisitely tender with any movement. Patient also complains of some epigastric pain. 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 No report of hematemesis or coffee-ground emesis. Patient states after bowel movements no report of melena or hematochezia. Patient rates her abdominal pain 10/10 in intensity, without relief of narcotics. The patient was transferred to [facility] , critical care medicine was consulted. Subjective: 11/18: Overnight the patient was known to be oliguric, the patient received approximately 5 L of normal saline , and 500 cc of 5% albumin during the night. NG tube output approximately 700 cc since admission. The patient was noted to be mildly confused this a.m. and progressively worsened. O2 saturation was 100% ,stat ABGs performed, metabolic acidosis with a bicarbonate level of 16. Patient received 2 A of sodium bicarbonate and bicarbonate infusion was initiated. Patient also was noted to be hypocalcemic this a.m. and received 2 g of calcium gluconate. The patient was started on Argatroban infusion after discussion with Dr. Howell, plan for endoscopy tomorrow . The patient was previously on Xarelto for DVT prophylaxis.Repeat labs performed early this afternoon revealed hemoglobin of 6.7, 1 unit of PRBC being transfused. She required restraints, for patient safety. Repeat labs pending this evening posttransfusion. 11/19: Afebrile. Last evening the patient became more confused metabolic acidosis, placed on sodium bicarbonate infusion, now corrected. Patient alert, following commands. Sodium bicarbonate infusion discontinued. Patient noted to be severely anemic with hemoglobin of 6.2 received 1 unit of PRBCs, last hemoglobin 9.4, stable. Continued serial monitoring of H&H labs pending this a.m.. Patient noted to have improvement in urine output overnight. EGD placed on hold. 11/20 No events overnight. Afebrile, on 3L oxygen. 11/21 Patient is on 2L oxygen. MRI brain last night showed no acute abnormalities. Afebrile. Lethargic 11/22 Patient is on 3L oxygen. Renal function is improving with Cr: 1.47 from 1.77. On Argatroban drip. 11/23 No events overnight, On Argatroban drip. Cr: 1.16 from 1.47. 11/24 Patient is more awake, off Argatroban drip, T:100.3. 1u PRBC ordered for Hgb 6.7 this morning. 11/25 Patient is on 50% VM with good sats. Afebrile. 11/26: Remains orally intubated on mechanical ventilation, awaiting colonoscopy. 11/27: Arousable off sedation, orally intubated on mechanical ventilation. Colonoscopy showed colitis and pseudomembranes yesterday biopsies pending. Stool for C. difficile ordered. 11/28: Extubated yesterday tolerating nasal cannula. Stool for C. difficile negative 12/01: Critical care reconsulted for worsening respiratory status and sigmoidoscopy showing worsening colitis with concern for ischemic colitis. When I evaluated the patient she was on BiPAP with full facemask. She had just finished a sigmoidoscopy earlier which revealed diffuse erythematous mucosa with rectal ulcers with question of ischemia. She has continued to have low platelets requiring platelet transfusions for her ITP. GI has consult general surgery in view of suspected worsening ischemic colitis. Patient is also developing worsening renal function. She is awake and grimaces significantly on examining her belly. Otherwise she is not very oriented to participate in discussion regarding plan of care. 12/02: T-max 99.7. The patient remains encephalopathic. The patient remained on BiPAP throughout the night without any difficulties will wean back to nasal cannula. Platelet count continues to decrease from 22-> 17, despite being transfused platelets yesterday. Concern for protection of airway with meals patient will be started on PPN. Plan for angiogram this a.m.. The patient continues to have increasing creatinine and decreasing urinary output in the last 24 hours. Family meeting scheduled with palliative care team tentatively today. 12/03: Afebrile. No change in neurological status overnight. Post meeting with the , palliative care team general surgery and nephrology decision has been made to wait another 24 hours to see if there is a change/improvement in patient's status. If no improvement hospice to be consulted tomorrow 12/04/17. The patient remains NPO, will initiate PPN at a low infusion rate for nutrition. Discussed extensively with Dr. Box yesterday, discussing the risk versus benefit of any type of surgical intervention. Due to the patient's multiple comorbidities again thought I had discussion with patient's , and plan is to wait another 24 hours to determine if there is no improvement, if not will transition to comfort care under hospice services. 12/04: T-max 99.1. the patient currently on nasal cannula O2 saturation 97%. No acute changes overnight, the patient remains noncommunicative. Labs are pending. PPN was initiated last the evening. Urine output significantly decreased. Tentative plans for hospice evaluation this a.m. with possible transfer to hospice facility in [place] as requested by patient's , Mr. Cruz and family. Objective Vital Signs Date Time Temp Pulse Resp B/P (MAP) Pulse Ox O2 Delivery O2 Flow Rate FiO2 12/04/17 06:00 111 12/04/17 04:00 99.0 26 135/66 (89) 99 12/04/17 03:18 Nasal Cannula 3.00 12/02/17 03:34 40 Intake and Output 12/04/17 12/04/17 12/05/17 08:00 16:00 00:00 Intake Total 350 ml Output Total 300 ml Balance 50 ml Result Diagram: 12/03/17 0537 12/03/17 0537 Imaging Last Impressions Renal Ultrasound 12/01/17 0000 Signed Impressions: Service Date/Time: Friday, December 01, 2017 21:49 - CONCLUSION: Normal examination. Anuel Suazo MD Chest X-Ray 12/01/17 0000 Signed Impressions: Service Date/Time: Friday, December 01, 2017 19:48 - CONCLUSION: 1. Basilar airspace disease and pleural effusions similar to November 30. Roby Brito MD Head CT 11/30/17 0000 Signed Impressions: Service Date/Time: Thursday, November 30, 2017 12:15 - CONCLUSION: Negative noncontrast head CT. Ousmane Aguilar MD Abdomen X-Ray 11/23/17 0000 Signed Impressions: Service Date/Time: Thursday, November 23, 2017 06:14 - CONCLUSION: Nonobstructive bowel gas pattern without significant change. Ousmane Aguilar MD Brain MRI 11/20/17 1409 Signed Impressions: Service Date/Time: October 20:54 - CONCLUSION: 1. No acute intracranial abnormality. Right-sided mastoid air cell disease. No recent infarct, mass effect or shift. Roby Brito MD Lower Extremity Ultrasound 11/20/17 0000 Signed Impressions: Service Date/Time: October 11:48 - CONCLUSION: 1. No evidence of DVT. 2. Small right Stovall's cyst. Keven Lake MD Chest CT 11/19/17 0000 Signed Impressions: Service Date/Time: Sunday, November 19, 2017 17:10 - CONCLUSION: Minimal consolidative changes as above Small pleural effusions. Luis A Castillo MD FACR Abdomen/Pelvis CT 11/19/17 0000 Signed Impressions: Service Date/Time: Sunday, November 19, 2017 17:10 - CONCLUSION: Trace ascites or subcapsular fluid around liver Prominent gallbladder Luis A Castillo MD FACR Abdomen Ultrasound 11/17/17 0000 Signed Impressions: Service Date/Time: Friday, November 17, 2017 08:01 - CONCLUSION: Negative for occlusion or significant stenosis. Luis A Castillo MD FACR Last [address] 11/30/17 0000 Signed Impressions: Service Date/Time: Thursday, November 30, 2017 12:15 - CONCLUSION: Negative noncontrast head CT. Ousmane Aguilar MD Chest X-Ray 11/30/17 0000 Signed Impressions: Service Date/Time: Thursday, November 30, 2017 17:02 - CONCLUSION: Bibasilar increased density characteristic of underlying air space disease and bilateral effusions. Otherwise stable chest status post extubation. COPD. Fernando Shaver MD Last Impressions Chest X-Ray 11/23/17 0000 Signed Impressions: Service Date/Time: Thursday, November 23, 2017 10:56 - CONCLUSION: Small right pleural effusion. Scattered bibasilar atelectasis is noted. Swapnil Saldaña MD Abdomen X-Ray 11/23/17 0000 Signed Impressions: Service Date/Time: Thursday, November 23, 2017 06:14 - CONCLUSION: Nonobstructive bowel gas pattern without significant change. Ousmane Aguilar MD Brain MRI 11/20/17 1409 Signed Impressions: Service Date/Time: October 20:54 - CONCLUSION: 1. No acute intracranial abnormality. Right-sided mastoid air cell disease. No recent infarct, mass effect or shift. Roby Brito MD Lower Extremity Ultrasound 11/20/17 0000 Signed Impressions: Service Date/Time: October 11:48 - CONCLUSION: 1. No evidence of DVT. 2. Small right Stovall's cyst. Keven Lake MD Head CT 11/20/17 0000 Signed Impressions: Service Date/Time: October 11:29 - CONCLUSION: 1. Focal decreased attenuation involving the right armin consistent with lacunar infarct or ischemic change. 2. No acute hemorrhage, midline shift or extra-axial fluid collections. 3. Small fluid level within the right sphenoid sinus. Swapnil Saldaña MD Chest CT 11/19/17 0000 Signed Impressions: Service Date/Time: Sunday, November 19, 2017 17:10 - CONCLUSION: Minimal consolidative changes as above Small pleural effusions. Luis A Castillo MD FACR Abdomen/Pelvis CT 11/19/17 0000 Signed Impressions: Service Date/Time: Sunday, November 19, 2017 17:10 - CONCLUSION: Trace ascites or subcapsular fluid around liver Prominent gallbladder Luis A Castillo MD FACR Abdomen Ultrasound 11/17/17 0000 Signed Impressions: Service Date/Time: Friday, November 17, 2017 08:01 - CONCLUSION: Negative for occlusion or significant stenosis. Luis A Castillo MD FACR Procedures EGD/ colonoscopy. / Flex Sigmoidoscopy Objective Remarks GENERAL: This is a pale thin female lying in bed noncommunicative SKIN: Warm and dry. Pale HEAD: Atraumatic. Normocephalic. EYES: Pupils equal and round. No scleral icterus. No injection or drainage. ENT: No nasal bleeding or discharge. Mucous membranes pink and moist. NECK: Trachea midline. No JVD. CARDIOVASCULAR: Tachycardic 105-110, S1-S2 irregularly irregular RESPIRATORY: Air entry decreased bilaterally at bases, clear to auscultation. GASTROINTESTINAL: Abdomen soft, diffuse tenderness with guarding. Bowel sounds present MUSCULOSKELETAL: Extremities Warm bilaterally, bilateral 3+ peripheral edema NEUROLOGICAL: Awake but not responsive. Does not follow any commands. grossly nonfocal Date of Insertion: Dec 01, 2017 A/P Problem List: (1) Chronic anemia ICD Code: D64.9 - Anemia, unspecified Status: Acute (2) Idiopathic thrombocytopenia purpura ICD Code: D69.3 - Immune thrombocytopenic purpura Status: Acute (3) COPD (chronic obstructive pulmonary disease) ICD Code: J44.9 - Chronic obstructive pulmonary disease, unspecified Status: Acute (4) NISHANT (acute kidney injury) ICD Code: N17.9 - Acute kidney failure, unspecified Status: Acute (5) Chronic back pain ICD Code: M54.9 - Dorsalgia, unspecified; G89.29 - Other chronic pain Status: Acute (6) Hypertension ICD Code: I10 - Essential (primary) hypertension Status: Acute (7) Acute and chronic respiratory failure with hypoxia ICD Code: J96.21 - Acute and chronic respiratory failure with hypoxia Status: Acute (8) Abdominal pain ICD Code: R10.9 - Unspecified abdominal pain Status: Resolved (9) Metabolic acidemia ICD Code: E87.2 - Acidosis Status: Acute (10) Altered mental status, unspecified ICD Code: R41.82 - Altered mental status, unspecified (11) Hypoalbuminemia due to protein-calorie malnutrition ICD Code: E46 - Unspecified protein-calorie malnutrition Status: Acute (12) Electrolyte abnormality ICD Code: E87.8 - Other disorders of electrolyte and fluid balance, not elsewhere classified Status: Acute Assessment and Plan Neurologic: Chronic back pain 2/2 compression fractures Altered mental status Neurochecks per ICU protocol MRI brain 11/21 no acute abnormalities 11/20 EEG: bihemispheric slowing. There are some intermixed slow sharp waves, but no distinct paroxysmal discharges. The pattern suggests severe bilateral abnormalities, either metabolic or structural Neuro is following- Dr. Hyman Dilaudid 0.5 mg every 4 hours when necessary for breakthrough pain scale 7-10 Tylenol 650 mg every 6 hours when necessary for pain or temperature greater than 100.5 Patient on home dose [place] for pain control, resume following extubation if required. 12/03 Ammonia level- 18 Respiratory: COPD Asthma Home O2 dependency Acute respiratory failure Extubated on 11/27 Home O2 dependency- 3LPM, patient continues on 3 L/min nasal cannula with O2 saturation 97% Continue DuoNeb, Spiriva and budesonide- home medications Aspiration precautions Cardiovascular: Hypertension Sinus tachycardia Paroxysmal A. fib. On Cardizem 60mg Q6, Lopressor 50mg Q12 hr Keep MAP>65mmHg. Telemetry -predominantly ST (105-111) Renal: NISHANT Monitor renal function, I/O's, electrolytes replacement as needed. Nephrology following FEN/GI: GI bleed Suspected ischemic colitis Elevated LFT's s/p EGD 11/25 showed erosive gastritis. Colonoscopy done on 11/26 revealed colitis with possible pseudomembranes, biopsy sent. Stool for C. difficile negative. KUB abdomen 11/23: Non obstructive bowel gas pattern CT abd/pelvis: Trace ascites or subcapsular fluid around liver Prominent gallbladder US abdomen: Negative for occlusion or significant stenosis. rectal tube in place KUB 11/21 showed no obstruction. Sigmoidoscopy done on 12/01 showed diffuse erythematous mucosa with rectal ulcers with question of worsening colitis On Rifaximin, Lactulose - monitor ammonia level ( 29) Continue n.p.o. status at this time- discussed with Gen Surgery on 12/02 12/03: Begin PPN ID: Funguria Pseudomembranes on colonoscopy with colitis Continue abx per ID monitor for signs of infections ( Fever, WBC). Stool for C. difficile negative BC 11/16:NGTD, pancultured 11/23 ID is following. Discussed with Dr. Angulo. She is broadening antibiotic coverage to IV Zosyn in view of suspected ischemic colitis on sigmoidoscopy. Gen. surgery consulted for further evaluation Diflucan continued Heme History of DVT 09/2017 Chronic ITP Thrombocytopenia Hematology following-Dr. Luong. s/p transfusion1 u PRBC 11/24 receiving platelet transfusions per hematology 11/17, 11/18 Transfused 1u PRBC Platelet count normally 40-70,000- Transfused 12/01 and 12/02 12/02 Plt count 22->17,000 today despite transfusion Patient had left popliteal embolectomy 09/2017, Dr. Mixon and was placed on Pradaxa, patient under the care of nutrition worker Dr. Reyna. 11/18 Patient takes Xarelto 20mg/d, Argatroban held per Heme 11/28 Doppler US LE negative for DVT 12/04 F/U CBC Endocrine: Hyperglycemia of critical illness Glucose monitoring per ICU [id number] regimen -- SSI Prophylaxis: GI Prophylaxis Famotidine BID DVT Prophylaxis -- SCDs Patient's home med include Xarelto. Argatroban stopped per Heme on 11/28 Lines: Peripheral IVs 2. Prognosis appears extremely poor. 12/01 Following discussions with palliative care, patient's has decided to make her DNR/DNI status. He wishes to continue aggressive measures 12/03 : Extensive discussion with patient's , plan for meeting with hospice in a.m. if no improvement in condition today . PPN initiated 12/04 yesterday afternoon extensive discussion with patient's daughter Imani, provided update on medical status. Patient's daughter also concurs regrading patient transfer hospice today if there was no improvement. Condition critical. Level 3 follow up D/W [employer] ( Chrissy) Physician Glenis Flores Problem Qualifiers (1) Abdominal pain: Qualified Codes: R10.84 - Generalized abdominal pain Glenis Flores MD Dec 04, 2017 07:43
[2017-12-04] MEDS ORDERED: FAMOTIDINE 20 MG/2 ML VIAL IV PUSH SCH (08:00)
[2017-12-04] MEDS: INSULIN ASPART SUPPLEMENTAL SCALE SQ SCH ×2 (08:00→11:21)
--- NOTE | 2017-12-04 08:16 | PD.ONC.PN ---
Subjective Subjective Remarks Pt is not responsive. No labs drawn per nursing staff. Await hospice eval and possible transfer to hospice care. Objective Data Date Time Temp Pulse Resp B/P (MAP) Pulse Ox O2 Delivery O2 Flow Rate FiO2 12/04/17 06:00 111 12/04/17 04:00 113 12/04/17 04:00 99.0 113 26 135/66 (89) 99 12/04/17 03:18 97 Nasal Cannula 3.00 12/04/17 02:00 111 12/04/17 00:49 99 Nasal Cannula 3.00 12/04/17 00:00 99.1 110 26 110/84 (93) 98 12/04/17 00:00 110 12/03/17 22:00 109 12/03/17 20:25 96 Nasal Cannula 3.00 12/03/17 20:00 99.0 111 19 108/58 (75) 98 12/03/17 20:00 111 12/03/17 18:00 110 12/03/17 16:00 98.5 113 14 114/66 (82) 98 12/03/17 16:00 98.6 112 14 113/61 (78) 99 12/03/17 16:00 112 12/03/17 14:00 112 12/03/17 12:00 116 28 94 12/03/17 12:00 112 12/03/17 12:00 98.5 117 14 143/67 (92) 98 12/03/17 11:45 117 29 88 12/03/17 11:30 114 24 100 12/03/17 11:15 114 15 100 12/03/17 11:00 115 17 109/57 (74) 100 12/03/17 10:45 116 13 100 12/03/17 10:30 115 15 100 12/03/17 10:15 119 25 128/69 (88) 98 12/03/17 10:00 119 34 97 12/03/17 10:00 112 12/03/17 09:45 119 30 98 12/03/17 09:30 119 36 97 12/03/17 09:15 119 32 97 12/03/17 09:01 118 32 98/71 (80) 97 12/03/17 09:00 117 27 97 12/03/17 08:45 118 31 95 12/03/17 08:30 117 31 99 12/03/17 08:30 99 Nasal Cannula 3.00 12/03/17 08:15 117 31 98 12/04/17 12/04/17 12/04/17 07:00 15:00 23:00 Intake Total 450 ml Output Total 300 ml Balance 150 ml Result Diagram: 12/03/17 0537 12/03/1737 Administered Medications Medications (Trade) Dose Ordered Sig/[place] Route PRN Reason Start Time Stop Time Status Last Admin Dose Admin Sodium Chloride (NS Flush) 2 ml UNSCH PRN IV FLUSH FLUSH AFTER USING IV ACCESS 11/17/17 06:45 11/30/17 07:51 Sodium Chloride (NS Flush) 2 ml BID IV FLUSH 11/17/17 09:00 12/03/17 20:38 Acetaminophen (Tylenol) 650 mg Q6H PRN PO FEVER >101F 11/17/17 06:45 11/24/17 08:24 Albuterol/ Ipratropium (Duoneb Neb) 1 ampule Q4HR NEB PRN INH WHEEZING 11/17/17 06:45 12/02/17 09:29 Miscellaneous Information 1 Q361D XX 11/17/17 06:45 11/17/17 06:45 Chlorhexidine Gluconate (Chlorhexidine 2% Cloth) Taper DAILY@04 TOP 11/18/17 04:00 11/14/18 03:59 12/03/17 03:59 Sennosides (Senokot) 17.2 mg Q12H PRN PO Moderate constipation 11/17/17 06:45 11/17/17 09:11 Albuterol Sulfate (Albuterol Neb) 2.5 mg Q4HR NEB PRN NEB SHORTNESS OF BREATH 11/17/17 07:45 12/03/17 08:24 Budesonide (Pulmicort Respule Neb) 0.25 mg DAILY NEB NEB 11/17/17 08:00 12/03/17 08:24 Tiotropium [place] (Spiriva Inh) 18 mcg DAILY INH 11/17/17 09:00 12/03/17 09:00 Diltiazem HCl (Cardizem) 60 mg Q6HR PO 11/20/17 12:00 11/30/17 17:28 Rifaximin (Xifaxan) 550 mg BID PO 11/20/17 21:00 11/30/17 07:51 Potassium Phosphate (K-Phos) 2,000 mg Q4H PRN PO For Phosphorus < 2.5 mg/dL 11/21/17 13:30 11/26/17 12:24 Sodium Phosphate 30 mmol/Sodium Chloride 250 ml @ 42 mls/hr UNSCH PRN IV For Phosphorus < 2.5 mg/dL 11/21/17 13:30 11/26/17 15:07 Hydralazine HCl (Apresoline Inj) 10 mg Q4H PRN IV PUSH SYS BP GREATER THAN 160 MMHG 11/21/17 16:45 12/01/17 09:14 Metoprolol Tartrate (Lopressor Inj) 5 mg Q5M PRN IV PUSH HR>100 11/22/17 00:00 12/02/17 21:54 Hydromorphone HCl (Dilaudid Pf Inj) 0.5 mg Q4H PRN IV pain >5/10 11/22/17 02:45 12/04/17 05:41 Metoprolol Tartrate (Lopressor) 50 mg Q12HR PO 11/22/17 09:00 11/30/17 07:51 Fluconazole/ Sodium Chloride 100 ml @ 100 mls/hr Q24H IV 11/25/17 18:00 12/02/17 18:20 Acetaminophen/ Hydrocodone Bitart ([place] 5-325 Mg) 1 tab Q4H PRN PO PAIN 1-4 11/27/17 10:45 11/30/17 17:28 Dextrose (D50w (Vial) Inj) 50 ml UNSCH PRN IV PUSH HYPOGLYCEMIA-SEE COMMENTS 11/29/17 15:45 12/01/17 17:01 Insulin Aspart (NovoLOG SUPPLEMENTAL SCALE) 1 ACHS SLIDING SCALE SQ 11/29/17 17:00 11/29/17 21:18 Methylprednisolone Sodium Succinate (SoluMEDROL INJ) 40 mg Q12HR IV PUSH 12/02/17 09:00 12/03/17 20:37 Chlorothiazide Sodium (Diuril Inj) 250 mg BID IV 12/02/17 09:30 12/03/17 20:37 Sodium Chloride 5.5 meq/Sodium Acetate 29.5 meq/ Potassium Chloride 20 meq/ Magnesium Chloride 5 meq/ Calcium Chloride 4.5 meq/ Multivitamins 10 ml/Folic Acid 1 mg/Amino Acids/ Dextrose 1,042.1719 ml @ 30 mls/hr Q24H IV 12/03/17 20:00 12/03/17 20:37 Piperacillin Sod/ Tazobactam Sod 50 ml @ 100 mls/hr Q8H IV 12/03/17 18:00 12/04/17 00:23 Objective Remarks GENERAL: Not responsive SKIN: Warm and dry. HEAD: Normocephalic. EYES: No scleral icterus. No injection or drainage. NECK: Supple, trachea midline. No JVD or lymphadenopathy. LYMPHATIC: No adenopathy. CARDIOVASCULAR: Regular rate and rhythm without murmurs. RESPIRATORY: Slow breathing GASTROINTESTINAL: Abdomen soft, nondistended. EXTREMITIES: No cyanosis, or edema. MUSCULOSKELETAL: Adequate muscle tone. NEUROLOGICAL: Not responsive Assessment/Plan Problem List: (1) Idiopathic thrombocytopenia purpura ICD Codes: D69.3 - Immune thrombocytopenic purpura Status: Acute Plan: 12/04: continue solu-medrol 40mg IV BID. No clear evidence of bleed. --platelets may be lower due to consumption and antibiotics. --had splenectomy in 2009. --was treated with Nplate in the past with good response. --per , patient's baseline is between 50-70K and she has not required treatment for ITP since spleen removal several years ago. --platelet count has been fluctuating between 40,000-70,000. --no indication to start treatment for the idiopathic thrombocytopenic purpura at this point. (2) Arterial occlusion ICD Codes: I70.90 - Unspecified atherosclerosis Plan: --No evidence of recurrent clot --History of left popliteal arterial occlusion, likely an embolic event. --had embolectomy in September of this year. then started on Pradaxa, but later switched to Xarelto. --presented with abdominal pain and could have ischemic bowel (3) Abdominal pain ICD Codes: R10.9 - Unspecified abdominal pain Status: Resolved Plan: --EGD on 11/25 showed erosive gastritis of the cardia, possibly related to NGT injury. NGT was removed during procedure. --Cx on 11/26 showed severe colitis --presented with acute severe abdominal pain. --CT did not show any bowel obstruction. --Ultrasound also negative for occlusion or stenosis. 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 h/o Chronic anemia. Chronic back pain. Multiple compression fractures. Chronic obstructive pulmonary disease. Hypertension. Left popliteal arterial occlusion. Plan 1. monitor CBC if family still want aggressive care. 2. continue to hold anticoagulation. 3. Await possible hospice placement Problem Qualifiers (1) Abdominal pain: Qualified Codes: R10.84 - Generalized abdominal pain Braden Luong MD Dec 04, 2017 08:16
[2017-12-04] MEDS: RESP: BUDESONIDE 0.25 MG/2 ML NEB NEB SCH (08:49)
[2017-12-04] MEDS: CALCIUM ACETATE 667 MG CAP PO SCH (09:00)
[2017-12-04] MEDS: TIOTROPIUM BROMIDE 18 MCG INH INH SCH (09:00)
[2017-12-04] MEDS: RIFAXIMIN 550 MG TAB PO SCH (09:00)
[2017-12-04] MEDS: METOPROLOL TARTRATE 50 MG TAB PO SCH (09:00)
--- NOTE | 2017-12-04 09:41 | HHI.DS ---
Discharge Summary Admission Date Nov 17, 2017 at 02:36 Admitting Diagnosis sepsis; lactic acidosis; NISHANT; h/o ITP Procedures EGD/ colonoscopy. 12/01 Flex Sigmoidoscopy Brief History This is a 67-year-old female that presented to [facility], by private transportation for evaluation of severe abdominal pain. Patient states of the past week she has had constipation so last evening took laxatives ( Senokot) x 3 days, and then today had large bowel movement multiple times with development of severe lower abdominal pain. Patient had subsequently noted some abdominal distention. Patient states her abdomen is exquisitely tender with any movement. Patient also complains of some epigastric pain. 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 No report of hematemesis or coffee-ground emesis. Patient states after bowel movements no report of melena or hematochezia. Patient rates her abdominal pain 10/10 in intensity, without relief of narcotics. The patient was transferred to [facility] , critical care medicine was consulted. History [facility] Past Medical History Narrative Medical Anemia arthritis asthma chronic ITP splenectomy bone marrow biopsy Nplate therapy COPD hypertension tubal ligation; nursing notes reviewed Hx Anticoagulant Therapy: No Anemia: Yes Arthritis: Yes Asthma: Yes Autoimmune Disease: Yes (ITP) Anxiety: No Depression: No Heart Rhythm Problems: No Cancer: No Cardiovascular Problems: Yes High Cholesterol: No Chest Pain: No Congestive Heart Failure: No COPD: Yes Diabetes: No Endocrine: No Gastrointestinal Disorders: No Genitourinary: No Hepatitis: No Hiatal Hernia: No Hypertension: Yes (HTN R/T PAIN, HYPOTENSION ISSUE IN PAST) Immune Disorder: No Kidney Stones: No Musculoskeletal: Yes Neurologic: No Psychiatric: No Reproductive: No Respiratory: Yes Renal Failure: No Sickle Cell Disease: No Sleep Apnea: No Thyroid Disease: No ?: Not Tubal Ligation: Yes Past Surgical History Abdominal Surgery: Yes (splenectomy) AICD: No Cardiac Surgery: No Section: Yes (x1) Ear Surgery: No Endocrine Surgery: No Eye Surgery: Yes (right eye implant cataract surgery) Genitourinary Surgery: No Gynecologic Surgery: Yes (C section/ tubal ligation) Joint Replacement: Yes (right hip) Oral Surgery: Yes (T&A) Pacemaker: No Thoracic Surgery: No Tonsillectomy: Yes Social History Alcohol Use: Yes (ocass mix drinks) Tobacco Use: No (quit 2 yrs smoked 1 ppd) Substance Use: No Allergies-Medications Allergies-Medications (Allergen,Severity, Reaction): Coded Allergies: Sulfa (Sulfonamide Antibiotics) (Verified Allergy, Severe, Hives, 11/16/17) ciprofloxacin (Verified Allergy, Severe, Hives, 11/16/17) Reported Meds & Prescriptions Reported Meds & Active Scripts Active Pradaxa (Dabigatran) 150 Mg Cap 150 Mg PO BID Hydrocodone-Acetaminophen 5-325 mg Tab 1 Tab PO Q4H PRN Reported Albuterol Neb (Albuterol Sulfate) 2.5 Mg/3 Ml Neb 2.5 Mg NEB Q4HR NEB PRN Budesonide Neb 0.25 Mg/2 Ml Neb 0.25 Mg NEB DAILY NEB Ventolin Hfa 18 GM Inh (Albuterol Sulfate) 90 Mcg/Act Aer 2 Puff INH Q4-6H PRN Spiriva Handihaler (Tiotropium Inh) 18 Mcg Cap 18 Mcg INH DAILY 1 capsule = 18 mcg Montelukast (Montelukast Sodium) 10 Mg Tab 10 Mg PO DAILY Flexeril (Cyclobenzaprine HCl) 10 Mg Tab 20 Mg PO BID Lisinopril 20 Mg Tab 20 Mg PO DAILY Perforomist Neb (Formoterol Fumarate) 20 Mcg/2 Ml Neb 1 Nebule INH BID ROS Review of Systems Except as stated in HPI: all other systems reviewed are Neg General / Constitutional: No: Fever, Chills HENT: No: Congestion Cardiovascular: No: Chest Pain or Discomfort Respiratory: No: Shortness of Breath Gastrointestinal: Positive: Nausea, Abdominal Pain, Constipation, No: Hematemesis, Hematochezia Genitourinary: No: Dysuria, Hematuria, Flank Pain Musculoskeletal: No: Myalgias, Arthralgias Skin: No Rash Neurologic: Positive: Weakness Psychiatric: No: Anxiety Hematologic/Lymphatic: No: Lymph Node Enlargement CBC/BMP: 12/03/17 0537 12/03/17 0537 Significant Findings Laboratory Tests Test 12/01/17 09:52 12/01/17 13:31 12/01/17 21:15 12/02/17 04:35 Red Blood Count 3.04 MIL/MM3 (4.00-5.30) 2.84 MIL/MM3 (4.00-5.30) Hemoglobin 10.0 GM/DL (11.6-15.3) 9.4 GM/DL (11.6-15.3) Hematocrit 30.2 % (35.0-46.0) 28.4 % (35.0-46.0) Red Cell Distribution Width 25.0 % (11.6-17.2) 25.0 % (11.6-17.2) Platelet Count 22 TH/MM3 (150-450) 17 TH/MM3 (150-450) Neutrophils (%) (Auto) 73.1 % (16.0-70.0) Monocytes (%) (Auto) 10.3 % (0.0-8.0) 10.4 % (0.0-8.0) Band Neutrophils % 26 % (0-6) 37 % (0-6) Myelocytes 2 % (0-0) Toxic Granulation 1+ (NORMAL) Platelet Estimate LOW (NORMAL) RARE (NORMAL) Ovalocytes 1+ (NORMAL) Blood Urea Nitrogen 51 MG/DL (7-18) 57 MG/DL (7-18) Creatinine 2.33 MG/DL (0.50-1.00) 2.73 MG/DL (0.50-1.00) Calcium Level 7.1 MG/DL (8.5-10.1) 6.9 MG/DL (8.5-10.1) Sodium Level 147 MEQ/L (136-145) 148 MEQ/L (136-145) Chloride Level 115 MEQ/L (98-107) 114 MEQ/L (98-107) Estimat Glomerular Filtration Rate 21 ML/MIN (>89) 17 ML/MIN (>89) Protein Corrected Calcium 7.5 MG/DL (8.5-10.1) 7.5 MG/DL (8.5-10.1) Urine Protein 30 mg/dL (NEG-TRACE) Urine Occult Blood SMALL (NEG) Urine Bacteria RARE /hpf (NONE) Mean Corpuscular Volume 100.1 FL (80.0-100.0) Monocytes % 10 % (0-8) Promyelocytes 1 % (0-0) Dohle Bodies PRESENT (NONE SEEN) Total Protein 6.0 GM/DL (6.4-8.2) Albumin 1.8 GM/DL (3.4-5.0) Test 12/03/17 05:37 Red Blood Count 2.85 MIL/MM3 (4.00-5.30) Hemoglobin 9.5 GM/DL (11.6-15.3) Hematocrit 28.9 % (35.0-46.0) Mean Corpuscular Volume 101.3 FL (80.0-100.0) Red Cell Distribution Width 25.0 % (11.6-17.2) Platelet Count 55 TH/MM3 (150-450) Neutrophils (%) (Auto) 81.9 % (16.0-70.0) Lymphocytes # (Auto) 0.8 TH/MM3 (1.0-4.8) Band Neutrophils % 32 % (0-6) Platelet Estimate LOW (NORMAL) Blood Urea Nitrogen 71 MG/DL (7-18) Creatinine 3.53 MG/DL (0.50-1.00) Random Glucose 133 MG/DL (74-106) Total Protein 6.3 GM/DL (6.4-8.2) Albumin 1.9 GM/DL (3.4-5.0) Calcium Level 6.7 MG/DL (8.5-10.1) Phosphorus Level 6.5 MG/DL (2.5-4.9) Sodium Level 149 MEQ/L (136-145) Chloride Level 114 MEQ/L (98-107) Estimat Glomerular Filtration Rate 13 ML/MIN (>89) Protein Corrected Calcium 7.1 MG/DL (8.5-10.1) Triglycerides Level 209 MG/DL (42-150) PE at Discharge GENERAL: This is a well-nourished, well-developed patient, in no apparent distress. CARDIOVASCULAR: Regular rate and regular rhythm without murmurs, gallops, or rubs. RESPIRATORY: Clear to auscultation. Breath sounds equal bilaterally. No wheezes , rales, or rhonchi. GASTROINTESTINAL: Abdomen soft, non-tender, nondistended. Normal, active bowel sounds MUSCULOSKELETAL: Extremities without clubbing, cyanosis, or edema. NEURO: Awake but confused. Hospital Course This is a 67-year-old female that presented to [facility], by private transportation for evaluation of severe abdominal pain. Patient states of the past week she has had constipation so last evening took laxatives ( Senokot) x 3 days, and then today had large bowel movement multiple times with development of severe lower abdominal pain. Patient had subsequently noted some abdominal distention. Patient states her abdomen is exquisitely tender with any movement. Patient also complains of some epigastric pain. 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 No report of hematemesis or coffee-ground emesis. Patient states after bowel movements no report of melena or hematochezia. Patient rates her abdominal pain 10/10 in intensity, without relief of narcotics. The patient was transferred to [facility] , critical care medicine was consulted. Subjective: 11/18: Overnight the patient was known to be oliguric, the patient received approximately 5 L of normal saline , and 500 cc of 5% albumin during the night. NG tube output approximately 700 cc since admission. The patient was noted to be mildly confused this a.m. and progressively worsened. O2 saturation was 100% ,stat ABGs performed, metabolic acidosis with a bicarbonate level of 16. Patient received 2 A of sodium bicarbonate and bicarbonate infusion was initiated. Patient also was noted to be hypocalcemic this a.m. and received 2 g of calcium gluconate. The patient was started on Argatroban infusion after discussion with Dr. Howell, plan for endoscopy tomorrow . The patient was previously on Xarelto for DVT prophylaxis.Repeat labs performed early this afternoon revealed hemoglobin of 6.7, 1 unit of PRBC being transfused. She required restraints, for patient safety. Repeat labs pending this evening posttransfusion. 11/19: Afebrile. Last evening the patient became more confused metabolic acidosis, placed on sodium bicarbonate infusion, now corrected. Patient alert, following commands. Sodium bicarbonate infusion discontinued. Patient noted to be severely anemic with hemoglobin of 6.2 received 1 unit of PRBCs, last hemoglobin 9.4, stable. Continued serial monitoring of H&H labs pending this a.m.. Patient noted to have improvement in urine output overnight. EGD placed on hold. 11/20 No events overnight. Afebrile, on 3L oxygen. 11/21 Patient is on 2L oxygen. MRI brain last night showed no acute abnormalities. Afebrile. Lethargic 11/22 Patient is on 3L oxygen. Renal function is improving with Cr: 1.47 from 1.77. On Argatroban drip. 11/23 No events overnight, On Argatroban drip. Cr: 1.16 from 1.47. 11/24 Patient is more awake, off Argatroban drip, T:100.3. 1u PRBC ordered for Hgb 6.7 this morning. 11/25 Patient is on 50% VM with good sats. Afebrile. 11/26: Remains orally intubated on mechanical ventilation, awaiting colonoscopy. 11/27: Arousable off sedation, orally intubated on mechanical ventilation. Colonoscopy showed colitis and pseudomembranes yesterday biopsies pending. Stool for C. difficile ordered. 11/28: Extubated yesterday tolerating nasal cannula. Stool for C. difficile negative 12/01: Critical care reconsulted for worsening respiratory status and sigmoidoscopy showing worsening colitis with concern for ischemic colitis. When I evaluated the patient she was on BiPAP with full facemask. She had just finished a sigmoidoscopy earlier which revealed diffuse erythematous mucosa with rectal ulcers with question of ischemia. She has continued to have low platelets requiring platelet transfusions for her ITP. GI has consult general surgery in view of suspected worsening ischemic colitis. Patient is also developing worsening renal function. She is awake and grimaces significantly on examining her belly. Otherwise she is not very oriented to participate in discussion regarding plan of care. 12/02: T-max 99.7. The patient remains encephalopathic. The patient remained on BiPAP throughout the night without any difficulties will wean back to nasal cannula. Platelet count continues to decrease from 22-> 17, despite being transfused platelets yesterday. Concern for protection of airway with meals patient will be started on PPN. Plan for angiogram this a.m.. The patient continues to have increasing creatinine and decreasing urinary output in the last 24 hours. Family meeting scheduled with palliative care team tentatively today. 12/03: Afebrile. No change in neurological status overnight. Post meeting with the , palliative care team general surgery and nephrology decision has been made to wait another 24 hours to see if there is a change/improvement in patient's status. If no improvement hospice to be consulted tomorrow 12/04/17. The patient remains NPO, will initiate PPN at a low infusion rate for nutrition. Discussed extensively with Dr. Box yesterday, discussing the risk versus benefit of any type of surgical intervention. Due to the patient's multiple comorbidities again thought I had discussion with patient's , and plan is to wait another 24 hours to determine if there is no improvement, if not will transition to comfort care under hospice services. 12/04: T-max 99.1. the patient currently on nasal cannula O2 saturation 97%. No acute changes overnight, the patient remains noncommunicative. Labs are pending. PPN was initiated last the evening. Urine output significantly decreased. Tentative plans for hospice evaluation this a.m. with possible transfer to hospice facility in [place] as requested by patient's , Mr. Cruz and family. Pt Condition on Discharge: Deteriorating Discharge Disposition: Hospice/Med Facility Discharge Instructions DIET: Follow Instructions for: Nothing By Mouth Activities you can perform: Continue Bedrest Additional Information 11/18: Overnight the patient was known to be oliguric, the patient received approximately 5 L of normal saline , and 500 cc of 5% albumin during the night. NG tube output approximately 700 cc since admission. The patient was noted to be mildly confused this a.m. and progressively worsened. O2 saturation was 100% ,stat ABGs performed, metabolic acidosis with a bicarbonate level of 16. Patient received 2 A of sodium bicarbonate and bicarbonate infusion was initiated. Patient also was noted to be hypocalcemic this a.m. and received 2 g of calcium gluconate. The patient was started on Argatroban infusion after discussion with Dr. Howell, plan for endoscopy tomorrow . The patient was previously on Xarelto for DVT prophylaxis.Repeat labs performed early this afternoon revealed hemoglobin of 6.7, 1 unit of PRBC being transfused. She required restraints, for patient safety. Repeat labs pending this evening posttransfusion. 11/19: Afebrile. Last evening the patient became more confused metabolic acidosis, placed on sodium bicarbonate infusion, now corrected. Patient alert, following commands. Sodium bicarbonate infusion discontinued. Patient noted to be severely anemic with hemoglobin of 6.2 received 1 unit of PRBCs, last hemoglobin 9.4, stable. Continued serial monitoring of H&H labs pending this a.m.. Patient noted to have improvement in urine output overnight. EGD placed on hold. 11/20 No events overnight. Afebrile, on 3L oxygen. 11/21 Patient is on 2L oxygen. MRI brain last night showed no acute abnormalities. Afebrile. Lethargic 11/22 Patient is on 3L oxygen. Renal function is improving with Cr: 1.47 from 1.77. On Argatroban drip. 11/23 No events overnight, On Argatroban drip. Cr: 1.16 from 1.47. 11/24 Patient is more awake, off Argatroban drip, T:100.3. 1u PRBC ordered for Hgb 6.7 this morning. 11/25 Patient is on 50% VM with good sats. Afebrile. 11/26: Remains orally intubated on mechanical ventilation, awaiting colonoscopy. 11/27: Arousable off sedation, orally intubated on mechanical ventilation. Colonoscopy showed colitis and pseudomembranes yesterday biopsies pending. Stool for C. difficile ordered. 11/28: Extubated yesterday tolerating nasal cannula. Stool for C. difficile negative 12/01: Critical care reconsulted for worsening respiratory status and sigmoidoscopy showing worsening colitis with concern for ischemic colitis. When I evaluated the patient she was on BiPAP with full facemask. She had just finished a sigmoidoscopy earlier which revealed diffuse erythematous mucosa with rectal ulcers with question of ischemia. She has continued to have low platelets requiring platelet transfusions for her ITP. GI has consult general surgery in view of suspected worsening ischemic colitis. Patient is also developing worsening renal function. She is awake and grimaces significantly on examining her belly. Otherwise she is not very oriented to participate in discussion regarding plan of care. 12/02: T-max 99.7. The patient remains encephalopathic. The patient remained on BiPAP throughout the night without any difficulties will wean back to nasal cannula. Platelet count continues to decrease from 22-> 17, despite being transfused platelets yesterday. Concern for protection of airway with meals patient will be started on PPN. Plan for angiogram this a.m.. The patient continues to have increasing creatinine and decreasing urinary output in the last 24 hours. Family meeting scheduled with palliative care team tentatively today. 12/03: Afebrile. No change in neurological status overnight. Post meeting with the , palliative care team general surgery and nephrology decision has been made to wait another 24 hours to see if there is a change/improvement in patient's status. If no improvement hospice to be consulted tomorrow 12/04/17. The patient remains NPO, will initiate PPN at a low infusion rate for nutrition. Discussed extensively with Dr. Box yesterday, discussing the risk versus benefit of any type of surgical intervention. Due to the patient's multiple comorbidities again thought I had discussion with patient's , and plan is to wait another 24 hours to determine if there is no improvement, if not will transition to comfort care under hospice services. Patient will be discharged this morning to Hospice medical facility located in [facility] Glen[facility] Flores MD Dec 04, 2017 09:41
[2017-12-04] MEDS: SODIUM CHLORIDE 0.9% FLUSH 10 ML FLUSH IV FLUSH SCH (10:10)
[2017-12-04] MEDS: DILTIAZEM HCL 60 MG TAB PO SCH (11:12)
[2017-12-04] MEDS: CHLOROTHIAZIDE SOD 500 MG VIAL IV SCH (11:19)
[2017-12-04] MEDS: methylPREDNISolone SOD SUCC 40 MG/1 ML VIAL IV PUSH SCH (11:19)
== END 2017-12-04 12:30 | disposition hospice, inpatient (51) | DRG 393 ==
LOC: PHED 22:33 → PHEDA 11-17 02:36 → HIMN 11-17 05:45
PROVIDERS: ADMIT Internal Medicine; ATTEND Internal Medicine
PROC: 0T9B70Z Drainage of Bladder with Drainage Device, Via Natural or Artificial Opening (ICD-10-PCS; principal; 2017-11-17)
PROC: 0D9670Z Drainage of Stomach with Drainage Device, Via Natural or Artificial Opening (ICD-10-PCS; 2017-11-17)
PROC: 30233N1 Transfusion of Nonautologous Red Blood Cells into Peripheral Vein, Percutaneous Approach (ICD-10-PCS; 2017-11-18)
PROC: 6A551Z2 Pheresis of Platelets, Multiple (ICD-10-PCS; 2017-11-23)
PROC: 5A1945Z Respiratory Ventilation, 24-96 Consecutive Hours (ICD-10-PCS; 2017-11-25)
PROC: 30233L1 Transfusion of Nonautologous Fresh Plasma into Peripheral Vein, Percutaneous Approach (ICD-10-PCS; 2017-11-25)
PROC: 0DB68ZX Excision of Stomach, Via Natural or Artificial Opening Endoscopic, Diagnostic (ICD-10-PCS; 2017-11-25)
PROC: 0DBM8ZX Excision of Descending Colon, Via Natural or Artificial Opening Endoscopic, Diagnostic (ICD-10-PCS; 2017-11-26)
PROC: 0DBP8ZX Excision of Rectum, Via Natural or Artificial Opening Endoscopic, Diagnostic (ICD-10-PCS; 2017-11-26)
PROC: 0DJD8ZZ Inspection of Lower Intestinal Tract, Via Natural or Artificial Opening Endoscopic (ICD-10-PCS; 2017-12-01)
DX: K55.9 Vascular disorder of intestine, unspecified (principal); N17.0 Acute kidney failure with tubular necrosis; J96.21 Acute and chronic respiratory failure with hypoxia; G93.41 Metabolic encephalopathy; D69.3 Immune thrombocytopenic purpura; E46 Unspecified protein-calorie malnutrition; E87.0 Hyperosmolality and hypernatremia; K56.7 Ileus, unspecified; K63.3 Ulcer of intestine; I48.0 Paroxysmal atrial fibrillation; E87.2 Acidosis; K62.6 Ulcer of anus and rectum; J44.9 Chronic obstructive pulmonary disease, unspecified; Z90.81 Acquired absence of spleen; D64.9 Anemia, unspecified; Z99.81 Dependence on supplemental oxygen; I10 Essential (primary) hypertension; G89.29 Other chronic pain; M54.9 Dorsalgia, unspecified; M19.90 Unspecified osteoarthritis, unspecified site; Z87.891 Personal history of nicotine dependence; Z86.718 Personal history of other venous thrombosis and embolism; Z79.01 Long term (current) use of anticoagulants; R73.9 Hyperglycemia, unspecified; Z96.641 Presence of right artificial hip joint; Z82.49 Family history of ischemic heart disease and other diseases of the circulatory system; Z82.3 Family history of stroke; Z82.0 Family history of epilepsy and other diseases of the nervous system; Z80.9 Family history of malignant neoplasm, unspecified; E87.70 Fluid overload, unspecified; Z51.5 Encounter for palliative care; F41.9 Anxiety disorder, unspecified; Z66 Do not resuscitate; Z78.1 Physical restraint status; K29.60 Other gastritis without bleeding; K64.4 Residual hemorrhoidal skin tags; K64.8 Other hemorrhoids; E83.51 Hypocalcemia
CPT/HCPCS: 31500; 36430; 36600; 51702; 70450; 70551; 71045; 71250; 74018; 74176; 76775; 76937; 80048; 80053; 80076; 80202; 81001; 82103; 82140; 82175; 82180; 82248; 82272; 82306; 82390; 82525; 82550; 82552; 82607; 82728; 82784; 82805; 82948; 83516; 83520; 83540; 83605; 83655; 83690; 83735; 84100; 84132; 84155; 84425; 84446; 84478; 84590; 85007; 85014; 85018; 85025; 85027; 85049; 85379; 85384; 85610; 85730; 86038; 86255; 86850; 86900; 86901; 86920; 86927; 87040; 87070; 87086; 87205; 87493; 87641; 88305; 88312; 93005; 93970; 93975; 94002; 94003; 94640; 94664; 95819; 96361; 96365; 96375; C9113; J0131; J0171; J0330; J0360; J0610; J0692; J0883; J1160; J1170; J1205; J1450; J1644; J1815; J1940; J2060; J2270; J2405; J2543; J2920; J3010; J3370; J3475; J3480; J7030; J7040; J7050; J7070; J7613; J7626; P9016; P9017; P9035; P9047; Q9963